=== PATIENT | female | born 1940 | race Caucasian/White ===

== ENCOUNTER → 2016-09-13 | Outpatient (CLI) | payer MEDICARE ==
--- NOTE | 2016-09-15 08:03 | MM ---
Reason for exam: screening (asymptomatic). Last mammogram was performed 1 year ago. History: Patient is postmenopausal. Benign stereotactic core biopsy of the left breast, January 21, 2000. Core biopsy of the left breast. Physical Findings: A clinical breast exam by your physician is recommended on an annual basis and results should be correlated with mammographic findings. MG 3D Screening Mammo W/Cad Bilateral CC and MLO view(s) were taken. Prior study comparison: September 12, 2015, bilateral MG screening mammo w CAD. August 12, 2014, bilateral MG diagnostic mammo w CAD [place]. The breast tissue is almost entirely fat. No significant changes when compared with prior studies. ASSESSMENT: Negative, BI-RAD 1 RECOMMENDATION: Routine screening mammogram of both breasts in 1 year.
== END | disposition home or self-care (01) ==
LOC: RADMAMWWP 13:40
PROVIDERS: ATTEND Family Medicine
DX: Z12.31 Encounter for screening mammogram for malignant neoplasm of breast (principal)
CPT/HCPCS: 77052; 77063; G0202

== ENCOUNTER → 2016-10-25 | Outpatient (CLI) | payer MEDICARE ==
--- NOTE | 2016-10-25 12:35 | MR ---
EXAMINATION TYPE: MR shoulder LT wo con DATE OF EXAM: 10/25/2016 11:14 AM COMPARISON: Plain film second of October 2016 HISTORY: Left shoulder pain TECHNIQUE: Multiplanar, multisequence imaging of the left shoulder is performed without contrast. FINDINGS: Rotator Cuff: Torn and retracted to the level of the acromioclavicular joint Acromioclavicular Joint: Hypertrophic changes present, there is mass effect on the musculotendinous j unction of supraspinatus Glenohumeral Joint: Humerus is high riding in relationship joint. There is marginal spurring and join t effusion. Subchondral geode formation present at the humeral head. Labrum: Difficult to exclude a small tear anteriorly. Biceps Tendon: The tendon is perched along the anterior bicipital groove medially, there is fluid sig nal around the tendon, there may be associated ganglion cyst. Bone marrow signal: Some marrow edema present in the lateral aspect near the expected insertion site of the rotator cuff on the greater tuberosity along the proximal humerus. Other: Distal acromion shows a spur is somewhat downturned. IMPRESSION: Rotator cuff tear with retraction. Difficult to exclude labral tear. Additional findings above.
== END | disposition home or self-care (01) ==
LOC: RADMRIMAIN 10:31
PROVIDERS: ATTEND Orthopaedic Surgery
DX: M75.102 Unspecified rotator cuff tear or rupture of left shoulder, not specified as traumatic (principal)

== ENCOUNTER → 2017-01-27 | Outpatient (CLI) | payer MEDICARE ==
[2017-01-27 11:25] LABS: Basophils # (A) 0.1 k/uL (0-0.2); Basophils % (A) 1 %; CH 30.8; CHCM 33.3; Eosinophils # (A) 0.3 k/uL (0-0.7); Eosinophils % (A) 3 %; HCT 40.8 % (34.0-46.0); HDW 2.28; HGB 13.7 gm/dL (11.4-16.0); Luc % (Auto) 2; Lymphocytes # (A) 2.8 k/uL (1.0-4.8); Lymphocytes % (A) 31 %; MCH 31.3 pg (25.0-35.0); MCHC 33.6 g/dL (31.0-37.0); Mean Platelet Volume 6.6; Monocytes # (A) 0.6 k/uL (0-1.0); Monocytes % (A) 6 %; Neutrophils # (A) 5.1 k/uL (1.3-7.7); Neutrophils % (A) 57 %; RBC 4.39 m/uL (3.80-5.40); WBC 8.9 k/uL (3.8-10.6); WBC (Perox) 9.36
[2017-01-27 11:27] LABS: Potassium 5.4 mmol/L (3.5-5.1)
== END ==
LOC: LABPAT 11:02
PROVIDERS: ATTEND Orthopaedic Surgery
DX: Z01.812 Encounter for preprocedural laboratory examination (principal); M75.42 Impingement syndrome of left shoulder
CPT/HCPCS: 36415; 80051; 85025

== ENCOUNTER 2017-02-03 08:06 | Day surgery (SDC) | payer MEDICARE ==
[2017-01-28 15:37] VITALS: BMI 31.8
--- NOTE | 2017-02-02 15:21 | HP ---
DATE OF ADMISSION: 02/03/2017 Yulia Yanes is a 76-year-old patient seen with progressive left shoulder pain. After having treatment options discussed, she elected to proceed with left shoulder arthroscopy. Consent was obtained. Clearance was provided by Dr. Mati Vale. Past medical history is hyperlipidemia, hypertension. Past surgical history is right knee arthroscopy, right total knee arthroplasty. DAILY MEDICATIONS: 1. Aspirin. 2. Lotrel. 3. Metoprolol. 4. Zocor. ALLERGIES: None. SOCIAL HISTORY: Patient denies current tobacco use. Physical evaluation of the left shoulder: Flexion is 30 degrees, abduction is 30 degrees, external rotation is 20 degrees with pain and weakness. Tenderness along the anterolateral acromion and rotator cuff insertion. Impingement positive at 80 degrees, drop arm sign positive. Distal neurovascular exam is intact. Radiographs of the left shoulder revealed a type 2 anterior acromion, acromioclavicular joint osteoarthritis and cystic changes of the tuberosity. An MRI of the left shoulder revealed impingement as well as a retracted rotator cuff tendon tear. IMPRESSION: Left shoulder impingement with rotator cuff tear. PLAN: Left shoulder arthroscopy, subacromial decompression, probable arthroscopic rotator cuff repair, and debridement.
[~2017-02-03 08:06] MED LIST: DEXAMETHASONE SOD PHOSPHATE 10 MG/ML 1 ML VIAL IV ONE; HYDROmorphone 1 MG/ML 1 ML SYRINGE IVP PRN; LACTATED RINGERS 1,000 ML IV SCH; LIDOCAINE 1% 20 ML VIAL (10MG/ML) FOR IV START INTRADERMA PRN; ONDANSETRON 4 MG/2 ML VIAL IVP ONE; ceFAZolin 2 GM in SODIUM CHLORIDE 0.9% 100 ML IVPB ONE
[2017-02-03] MEDS ORDERED: MIDAZOLAM 2 MG/2 ML VIAL IV ONE (09:10)
[2017-02-03] MEDS ORDERED: NEOSTIGMINE 1 MG/ML 10 ML VIAL ONE (09:26)
[2017-02-03] MEDS ORDERED: fentaNYL (PF) 50 MCG/ML 2 ML AMP ONE (09:26)
[2017-02-03] MEDS ORDERED: MIDAZOLAM 2 MG/2 ML VIAL ONE (09:26)
[2017-02-03] MEDS ORDERED: ePHEDrine 50 MG/ML 1 ML AMP ONE (09:26)
[2017-02-03] MEDS ORDERED: GLYCOPYRROLATE 0.2 MG/ML 2 ML VIAL ONE (09:26)
[2017-02-03] MEDS ORDERED: SUCCINYLCHOLINE CHLORIDE 100 MG/5 ML SYR IV ONE (09:26)
[2017-02-03] MEDS ORDERED: PROPOFOL 10 MG/ML 20 ML VIAL IV ONE (09:26)
[2017-02-03] MEDS ORDERED: ROCURONIUM BROMIDE 10 MG/ML 10 ML VIAL IV ONE (09:26)
--- NOTE | 2017-02-03 12:01 | P.OP ---
Date of Procedure: 02/03/17 Preoperative Diagnosis: Left shoulder impingement Postoperative Diagnosis: 1. Left shoulder rotator cuff tear 2. Left shoulder impingement 3. Left shoulder acromioclavicular joint osteoarthritis 4. Left shoulder partial biceps tendon tear 5. Left shoulder superficial superior labral tear Procedure(s) Performed: 1. Left shoulder arthroscopic rotator cuff repair 2. Left shoulder arthroscopic subacromial decompression 3. Left shoulder arthroscopic April procedure 4. Left shoulder arthroscopic biceps tenotomy 5. Left shoulder arthroscopic debridement labral tear Implants: 6-valeris peek anchors Anesthesia: GETA, regional (Shoulder block ) Surgeon: David Sanders Labor Training Manager #1: Jefferson Caro Estimated Blood Loss (ml): 25 Pathology: none sent Condition: stable Disposition: PACU Indications for Procedure: 76-year-old patient seen with progressive left shoulder pain. After treatment options discussed, she elected to proceed with left shoulder arthroscopy. Operative Findings: see description of procedure Description of Procedure: Patient underwent a shoulder block by department of anesthesia. The patient was then taken to the operative suite. The patient underwent a general anesthetic by the department of anesthesia. The patient was placed into a lateral position and secured. There was appropriate padding of the bony prominence. Left shoulder was then prepped and draped in normal sterile orthopedic fashion. We placed the extremity in 10 pounds of longitudinal traction. A posterior incision was now made for a posterior working portal site. The trocar and cannula were inserted into the glenohumeral joint. Arthroscopy was initiated. Spinal needle was now inserted anteriorly, to ascertain the anterior working portal site. An incision was now made in that area, a trocar was inserted followed by a probe. There was superficial tearing of the superior labrum. There was partial tearing long head biceps tendon. There were grade 2 chondral malacia changes of the glenohumeral joint without osteochondral tears present. There was no obvious large rotator cuff tear visualized from glenohumeral side. I performed an arthroscopic biceps tenotomy. I debrided the labral tear down to stable tissue. The residual labrum was found to be stable. Instruments were now removed from the glenohumeral joint. Utilizing the posterior working portal site, the trocar and cannula were inserted into the subacromial space. Arthroscopy initiated. I made an incision 2 fingerbreadths lateral to the acromion. I introduced my trocar followed by my ArthroCare ablator. I now began ablating thick subacromial bursal tissue, which exposed the undersurface of the anterior acromion. This was diminished subacromial space. There was a very prominent anterior acromion. A motorized bur was introduced and a subacromial decompression was performed. I also excised some osteophytes off the inferior aspect of the distal clavicle. The AC joint was visualized and noted to be fairly arthritic. Our motorized bur was introduced in the anterior portal site and a April procedure was performed without difficulty, decompressing the AC joint nicely. I turned my attention to the rotator cuff. There was a massive rotator cuff tear measuring approximately 4 cm retracted. I was able to mobilize over the footprint. I abraded the footprint with a motorized bur. I created 2 assessory portal sites of the lateral acromion. I introduced 3 medial row anchors with 2 sutures each. I now passed all 6 limbs of suture through good bites of rotator cuff tendon. I now crisscrossed the sutures and began inserting lateral anchors beginning posteriorly introducing a total of 3 anchors compressing the tendon along the footprint very nicely. I injected 1 mL of Allogen into the footprint repair site. All residual suture limbs were clipped. The repair was stable. We had impression of the tendon along the footprint. Instruments now removed from the portal sites. All portal sites were approximated with nylon suture. Sterile dressings were applied followed by a shoulder immobilizer. Morgan SCOTT assisted with the procedure. The patient was awakened, transferred to a bed, and taken to recovery in stable condition.
[2017-02-03 12:11] VITALS: TEMP 97
[2017-02-03 12:18] VITALS: RESP 16
[2017-02-03 13:35] VITALS: BP 110/63; PULSE 81
== END 2017-02-03 14:08 | disposition home or self-care (01) ==
LOC: OR 08:06
PROVIDERS: ATTEND Orthopaedic Surgery
DX: M75.102 Unspecified rotator cuff tear or rupture of left shoulder, not specified as traumatic (principal); M75.42 Impingement syndrome of left shoulder; S46.112A Strain of muscle, fascia and tendon of long head of biceps, left arm, initial encounter; S43.402A Unspecified sprain of left shoulder joint, initial encounter; X58.XXXA Exposure to other specified factors, initial encounter; M19.012 Primary osteoarthritis, left shoulder; M94.212 Chondromalacia, left shoulder; M25.712 Osteophyte, left shoulder; I35.0 Nonrheumatic aortic (valve) stenosis; I10 Essential (primary) hypertension; E78.5 Hyperlipidemia, unspecified; I44.7 Left bundle-branch block, unspecified; I25.10 Atherosclerotic heart disease of native coronary artery without angina pectoris; E07.9 Disorder of thyroid, unspecified; Z79.82 Long term (current) use of aspirin; Z79.899 Other long term (current) drug therapy; Z82.49 Family history of ischemic heart disease and other diseases of the circulatory system; Z87.891 Personal history of nicotine dependence
CPT/HCPCS: 64415; 84132; 29824; 29827; 29826; C1894; C1713 ×2; C1765; J2250; J1100; J2710; J0690; J2405; J3010; J0330; J2704

== ENCOUNTER → 2017-09-26 | Outpatient (CLI) | payer MEDICARE ==
--- NOTE | 2017-09-27 09:15 | MM ---
Reason for exam: screening (asymptomatic). Last mammogram was performed 1 year ago. History: Patient is postmenopausal. Benign stereotactic core biopsy of the left breast, January 21, 2000. Core biopsy of the left breast. Physical Findings: A clinical breast exam by your physician is recommended on an annual basis and results should be correlated with mammographic findings. MG Screening Mammo w CAD Bilateral CC, MLO, and XCCL view(s) were taken. Prior study comparison: September 13, 2016, bilateral MG 3d screening mammo w/cad. September 12, 2015, bilateral MG screening mammo w CAD. There are scattered fibroglandular densities. Stable benign calcifications. There is no discrete abnormality. No significant changes when compared with prior studies. ASSESSMENT: Benign, BI-RAD 2 RECOMMENDATION: Routine screening mammogram of both breasts in 1 year.
== END | disposition home or self-care (01) ==
LOC: RADMAMWWP 09:20
PROVIDERS: ATTEND Family Medicine
DX: Z12.31 Encounter for screening mammogram for malignant neoplasm of breast (principal)
CPT/HCPCS: 77067

== ENCOUNTER → 2019-01-08 | Outpatient (CLI) | payer MEDICARE ==
--- NOTE | 2019-01-09 14:10 | MM ---
Reason for exam: screening (asymptomatic). Last mammogram was performed 1 year and 3 months ago. History: Patient is postmenopausal. Benign stereotactic core biopsy of the left breast, January 21, 2000. Core biopsy of the left breast. Physical Findings: A clinical breast exam by your physician is recommended on an annual basis and results should be correlated with mammographic findings. MG 3D Screening Mammo W/Cad Bilateral CC and MLO view(s) were taken. Prior study comparison: September 26, 2017, bilateral MG screening mammo w CAD. September 13, 2016, bilateral MG 3d screening mammo w/cad. The breast tissue is heterogeneously dense. This may lower the sensitivity of mammography. No significant changes when compared with prior studies. ASSESSMENT: Benign, BI-RAD 2 RECOMMENDATION: Routine screening mammogram of both breasts in 1 year.
== END | disposition home or self-care (01) ==
LOC: RADMAMWWP 10:10
PROVIDERS: ATTEND Family Medicine
DX: Z12.31 Encounter for screening mammogram for malignant neoplasm of breast (principal)
CPT/HCPCS: 77063; 77067

== ENCOUNTER → 2019-02-02 | Outpatient (CLI) | payer MEDICARE ==
[2019-02-02 11:15] LABS: HCT 41.4 % (34.0-46.0); HGB 13.5 gm/dL (11.4-16.0); MCHC 32.7 g/dL (31.0-37.0); MCV 91.9 fL (80.0-100.0); Mean Platelet Volume 6.7; Platelet Count 234 k/uL (150-450); RDW 13.2 % (11.5-15.5)
== END | disposition home or self-care (01) ==
LOC: LABPAT 10:01
PROVIDERS: ATTEND Internal Medicine Interventional Cardiology
DX: Z01.812 Encounter for preprocedural laboratory examination (principal); I35.9 Nonrheumatic aortic valve disorder, unspecified; I44.7 Left bundle-branch block, unspecified
CPT/HCPCS: 82565; 83735; 84520; 85027

== ENCOUNTER 2019-02-05 06:34 | Day surgery (SDC) | payer MEDICARE ==
[2019-02-01 16:13] VITALS: BMI 32.3
[~2019-02-05 06:34] MED LIST changes: +ALPRAZolam 0.25 MG TAB PO PRN; +ALPRAZolam 0.5 MG TAB PO PRN; +ASPIRIN 325 MG TAB PO STA; +ATORVASTATIN 80 MG TAB PO STA; -DEXAMETHASONE SOD PHOSPHATE 10 MG/ML 1 ML VIAL IV ONE; -HYDROmorphone 1 MG/ML 1 ML SYRINGE IVP PRN; -LACTATED RINGERS 1,000 ML IV SCH; -LIDOCAINE 1% 20 ML VIAL (10MG/ML) FOR IV START INTRADERMA PRN; +NITROGLYCERIN SL TABS 0.4 MG TAB SUBLINGUAL PRN; -ONDANSETRON 4 MG/2 ML VIAL IVP ONE; +SODIUM CHLORIDE 0.9% 1,000 ML in EMPTY BAG 1 BAG IV ONE; -ceFAZolin 2 GM in SODIUM CHLORIDE 0.9% 100 ML IVPB ONE
[2019-02-05 07:11] VITALS: TEMP 97.6
[2019-02-05] MEDS ORDERED: LIDOCAINE 1% INJ 10MG/ML (20 ML MDV) ONE (07:36)
[2019-02-05 07:37] LABS: Calcium 9.4 mg/dL (8.4-10.2); Potassium 4.7 mmol/L (3.5-5.1)
[2019-02-05] MEDS ORDERED: MIDAZOLAM (PF) 2 MG/2 ML VIAL IV ONE ×2 (07:39→12:45)
[2019-02-05] MEDS ORDERED: LIDOCAINE 1% INJ 10MG/ML (20 ML MDV) SQ ONE (07:44)
--- NOTE | 2019-02-05 08:04 | HP ---
HISTORY AND PHYSICAL This is a 78-year-old lady with a known history of aortic stenosis and regurgitation with hypertension and hyperlipidemia. I evaluated her in late December and noted that her echo revealed a significant decrease in LV function with some diastolic dysfunction as well. There was some asymmetric septal hypertrophy. Aortic stenosis appeared to be worse with a mean gradient that had increased with moderate aortic regurgitation. In view of her pulmonary hypertension, worsening aortic valve disease and decreased LV function, she was advised coronary angiography and transesophageal echo with the possibility that she may require valve replacement. The rationale, risks, benefits, options were carefully explained to the patient and family. PAST MEDICAL HISTORY: Past medical history includes hypertension, hyperlipidemia, known aortic valve disease. She also has hypothyroidism and hypertension that is well controlled. MEDICATIONS: Her medications at home include Synthroid 50 mcg daily, Lotrel 5/40 one tablet daily, aspirin 81 mg daily, Zocor 20 mg daily, metoprolol succinate 25 mg daily. ALLERGIES: No known drug allergies. PHYSICAL EXAMINATION: On examination, blood pressure is 120/70, pulse rate is 70 per minute. HEENT: Unremarkable. Fundus was not examined by me. Neck is supple. There is JVD of 1 cm. There is no carotid bruit. Heart exam reveals S1, S2 heard normally with an ejection systolic murmur heard at the base of the heart with a diastolic murmur at the left sternal border. Lungs revealed decent air entry bilateral lung lance without rales or rhonchi. Abdomen is soft, nontender. Lower extremities reveal diminished pulses. Central nervous system is normal. IMPRESSION: 1. Moderate to severe aortic stenosis with moderate regurgitation with pulmonary hypertension. 2. Systemic hypertension. 3. Hyperlipidemia. 4. Left bundle branch block pattern. 5. Moderate noncritical carotid disease. RECOMMENDATION: I am recommending a right and left heart catheterization and coronary angiography as well as a transesophageal echo that will be performed today. The rationale, risks, benefits, options were explained to the patient and family. They understand and wish to proceed with the procedure. Patient does have a creatinine of 1.7 and we have hydrated her orally and she also received 0.9 Saline 100 mL/hour on arrival and we will use the dye administration very cautiously. The patient is aware of the renal failure risk. She does not have diabetes mellitus. MMODL / IJN: [id number] / [facility]
[2019-02-05 08:13] LABS: O2 Sat Blood Gas 98.7 %
[2019-02-05 08:16] LABS: O2 Sat Blood Gas 77.2 %
[2019-02-05 08:18] LABS: O2 Sat Blood Gas 74.5 %
[2019-02-05] MEDS ORDERED: IOPAMIDOL-370 100ML BTL INJ ONE ×2 (08:18)
[2019-02-05] MEDS ORDERED: SODIUM CHLORIDE 0.9% 1,000 ML IV SCH (08:45)
--- NOTE | 2019-02-05 09:01 | CC ---
CARDIAC CATHETERIZATION REPORT DATE OF SERVICE: 02/05/2019 PROCEDURE: Right heart catheterization and coronary angiography with oxygen saturation run and hemodynamics. PERFORMED BY: Dr. Danielle Lima. Moderate conscious sedation time was 40 minutes. Patient was administered Versed. Oxygen saturation, hemodynamics and EKG were monitored closely. CLINICAL INFORMATION: Mrs. Yulia Yanes is a 78-year-old lady with a known history of aortic valve disease, which has progressively gotten worse. She has developed LV dysfunction with worsening aortic stenosis and regurgitation and also moderate pulmonary hypertension and therefore she was advised coronary angiography. The rationale, risks, benefits, options were explained to the patient and family and she was brought in for the procedure electively. PROCEDURE NOTE: Under local anesthesia and strict aseptic precautions, a 6-Mauritian introducer was placed in the right femoral artery. An 8-Mauritian introducer in the right femoral vein. Using a balloon tipped flotation catheter, I performed right heart catheterization and thermodilution cardiac output. Using JR4 and JL5 catheters, I performed selective coronary angiography. I could not cross the aortic valve. The sheath was taken out and Angio-Seal device used to secure hemostasis. The venous sheath was taken out and manual compression used to secure hemostasis. Patient tolerated the procedure well without complications. CARDIAC CATHETERIZATION FINDINGS: Right atrial pressure was 5 mmHg, right ventricular pressure was 36/5. Pulmonary artery pressure was 36/14 with a mean of 24. Pulmonary capillary wedge pressure was 12 mmHg. The aortic valve was not crossed. The thermodilution cardiac output was about 5.5 L and Raheem cardiac output was 4.23 L. This translates to an average cardiac output of about 5 L. CORONARY ANGIOGRAPHY FINDINGS: RIGHT CORONARY ARTERY: This is a large dominant vessel with minor irregularities. No significant disease. Distally it bifurcates into a large PDA and PLV, both of which supply a sizable amount of myocardium. There is no significant disease involving the PDA and PLV branches of the dominant RCA. RCA is therefore relatively disease free very dominant vessel. LEFT MAIN CORONARY ARTERY: Short patent vessel that immediately bifurcates into LAD and circumflex. LEFT ANTERIOR DESCENDING CORONARY ARTERY: Good caliber vessel extends along the anterior wall, gives off a large diagonal branch and then runs along the anterior wall giving off septal and secondary diagonal branches all the way to the apex. The distal aspect of the LAD is diffusely disease. The diagonal is free of significant disease. The distal 1/4 of LAD is diffusely diseased. There is however no significant critical stenosis. Diagonal branch is free of significant disease and several septal branches are also free of significant disease. The distal 1/3 of the LAD is diffusely disease, but no significant obstructive lesion is noted. LEFT POSTERIOR CIRCUMFLEX CORONARY ARTERY: This is a technically nondominant vessel. It gives off a small obtuse marginal proximally than a groove branch. After the groove branch, there is an eccentric 60% to 70% stenosis involving the circumflex which runs laterally and gives off 2 branches. The mid circumflex therefore has a 60% to 70% lesion which is significant and located just after the origin of a groove branch. FINAL IMPRESSION: This patient has no significant pulmonary hypertension. The cardiac output is about 5 L which is an average of Raheem and thermodilution cardiac outputs. The patient has a right dominant system. LAD is diffusely diseased distally. RCA is a dominant and disease free. Circumflex has a 60-70% mid lesion. RECOMMENDATIONS: I am recommending that we will proceed with a transesophageal echo and get an assessment of the aortic valve and then make specific recommendations. The patient had a elevated creatinine of 1.7 and therefore only 35 to 40 mL of contrast was given. The patient tolerated procedure well without complications. MMODL / IJN: [id number] / [facility]
[2019-02-05] MEDS ORDERED: fentaNYL (PF) 50 MCG/ML 2 ML AMP ONE (12:09)
[2019-02-05] MEDS: BENZOCAINE SPRAY 1 CAN MUCOUS MEM ONE ×2 (12:22→12:34)
[2019-02-05] MEDS ORDERED: IV FLUID CONTINUATION 1,000 ML IV ONE (12:23)
[2019-02-05] MEDS ORDERED: fentaNYL (PF) 50 MCG/ML 2 ML AMP IV ONE (12:45)
[2019-02-05 13:06] VITALS: RESP 16
[2019-02-05 15:12] VITALS: BP 130/78; PULSE 72
--- NOTE | 2019-02-05 15:52 | ECHOT ---
TRANSESOPHAGEAL ECHOCARDIOGRAM DATE OF SERVICE: 02/05/2019 Mrs. Yanes is a 78-year-old female who transesophageal echocardiogram was performed to assess the aortic stenosis and aortic regurgitation. The patient was given intravenous sedation with Versed and fentanyl and transesophageal echocardiogram was performed without any complications. FINDINGS: Aortic valve is sclerotic with diminished aortic leaflet opening. Aortic valve area calculated is 1-1.1 square cm suggestive of severe aortic stenosis. Ascending aorta is dilated and measures 4.3 cm. Color Doppler study shows evidence of severe degree of aortic regurgitation. There is a moderate degree of mitral regurgitation. Left atrium is mildly enlarged. There is no evidence of thrombus in left atrium or atrial appendage. Left ventricular cavity is dilated with evidence of global hypokinesia, only the basal segments are anton. Estimated ejection fraction is about 30%. Interatrial septum is intact. There is no evidence of any PFO. There are diffuse arthrosclerotic changes noted in the descending thoracic aorta. FINAL IMPRESSION: 1. There is a sclerotic and calcific aortic valve with severe aortic stenosis. Aortic valve area is calculated in the range of 1-1.1. There is evidence of severe aortic regurgitation. 2. Mitral valve leaflets are thickened. There is no definite evidence of any prolapse, but there is evidence of moderate degree of mitral regurgitation. 3. There is no evidence of flow in the pulmonary vein. 4. The left atrium is enlarged. 5. The left ventricular systolic function is severely impaired with only predominantly basal segments are anton. Estimated ejection fraction is 30%. 6. There is no evidence of thrombus in left atrial appendage. 7. Interatrial septum is intact. 8. Diffuse arthrosclerotic plaque noted in the descending thoracic aorta. MMODL / IJN: [id number] /
== END 2019-02-05 14:43 | disposition home or self-care (01) ==
LOC: CATHCVL 06:34
PROVIDERS: ATTEND Internal Medicine Interventional Cardiology
DX: I25.10 Atherosclerotic heart disease of native coronary artery without angina pectoris (principal); I10 Essential (primary) hypertension; I08.0 Rheumatic disorders of both mitral and aortic valves; I27.20 Pulmonary hypertension, unspecified; E03.9 Hypothyroidism, unspecified; I44.7 Left bundle-branch block, unspecified; I65.23 Occlusion and stenosis of bilateral carotid arteries; E78.5 Hyperlipidemia, unspecified; Z82.49 Family history of ischemic heart disease and other diseases of the circulatory system; Z72.0 Tobacco use; Z79.82 Long term (current) use of aspirin; Z79.890 Hormone replacement therapy; Z79.899 Other long term (current) drug therapy
CPT/HCPCS: 93312; 93320; 93325; 93456; 80048; 85018; 82810; C1760; C1894 ×2; C1769 ×2; J2001; J3010; Q9967; J2250

== ENCOUNTER → 2019-02-07 | Outpatient (CLI) | payer MEDICARE ==
[2019-02-07 23:12] LABS: Anion Gap 7.8 mmol/L (4.00-12.00); Calcium 9.5 mg/dL (8.7-10.3); Carbon Dioxide 25.2 mmol/L (21.6-31.8); Potassium 4.8 mmol/L (3.5-5.5)
== END | disposition home or self-care (01) ==
LOC: LABWHC1 16:08
PROVIDERS: ATTEND Internal Medicine Interventional Cardiology
DX: I10 Essential (primary) hypertension (principal); I25.10 Atherosclerotic heart disease of native coronary artery without angina pectoris
CPT/HCPCS: 36415; 80048

== ENCOUNTER → 2019-03-13 | Outpatient (CLI) | payer MEDICARE ==
[2019-03-13 09:18] LABS: HCT 38.4 % (34.0-46.0); HGB 12.5 gm/dL (11.4-16.0); MCH 29.6 pg (25.0-35.0); MCHC 32.6 g/dL (31.0-37.0); Mean Platelet Volume 7.1; Platelet Count 217 k/uL (150-450); RBC 4.22 m/uL (3.80-5.40); RDW 13.8 % (11.5-15.5); WBC 8.1 k/uL (3.8-10.6)
[2019-03-13 09:26] LABS: Albumin 4.1 g/dL (3.5-5.0); INR 0.9 (<1.2); Partial Thromboplastin Time 23.2 sec (22.0-30.0); Potassium 5.3 mmol/L (3.5-5.1); Total Bilirubin 0.7 mg/dL (0.2-1.3); Total Protein 6.5 g/dL (6.3-8.2)
[2019-03-13 10:09] LABS: Appearance,Urine Clear (Clear); Bilirubin,Urine Negative (Negative); Blood,Urine Negative (Negative); Color,Urine Light Yellow; Glucose,Urine (UA) Negative (Negative); Ketones,Urine Negative (Negative); Leukocyte Esterase,Urine Negative (Negative); Nitrite,Urine Negative (Negative); PH, Urine 6.5 (5.0-8.0); Protein,Urine Negative (Negative); Specific Gravity,Urine 1.009 (1.001-1.035); Urobilinogen,Urine <2.0 mg/dL (<2.0)
--- NOTE | 2019-03-13 11:58 | XR ---
EXAMINATION TYPE: XR chest 2V DATE OF EXAM: 03/13/2019 COMPARISON: NONE TECHNIQUE: PA and lateral views submitted. HISTORY: Preop FINDINGS: Hyperinflation lungs with hypertrophic and degenerative changes spine. Left lower lobe consolidation. Right lung clear. Biapical pleural thickening. Arthropathy of the shoulders. Atherosclerotic change of the aorta. IMPRESSION: 1. Left basilar atelectasis or pneumonia correlate clinically. 2. COPD
[2019-03-13 18:36] LABS: Hepatitis A Antibody IgM Non-Reactive (Non-Reactive); Hepatitis B Core IgM Non-Reactive (Non-Reactive)
[2019-03-13 20:32] LABS: Hemoglobin A1C 5.8 % (4.0-6.0)
--- NOTE | 2019-03-14 11:31 | P.PN ---
Progress Note - Text Progress Note Date: 03/13/19 5 meter walk test completed 03/13/19: 1. 5.02 sec 2. 5.26 sec 3. 4.62 sec
--- NOTE | 2019-03-15 12:42 | P.VSCSTY ---
Greater Saphenous Vein Mapping This is bilateral lower extremity greater saphenous vein mapping. Date of service: 03/13/2019 Vein quality and ultrasound appearance: No endoluminal thrombus or wall changes are seen. Vein size groin right : 5.8 x 5.1 groin left: 5.8 x 5.6 High thigh right: 3.6 x 3.4 high thigh left: 4.4 x 4.3 Mid thigh right: 4.3 x 3.5 mid thigh left: 4.0 x 3.8 Above-knee right: 4.5 x 3.3 above-knee left: 4.8 x 3.7 Below knee right: 3.6 x 2.8 below-knee left: 3.6 x 2.5 Mid calf right: 3.5 x 2.8 mid calf left: 2.9 x 2.8 Ankle right: 2.7 x 1.7 ankle left: 3.1 x 2.8 Impression: Usable bilateral greater saphenous vein..
--- NOTE | 2019-03-15 12:43 | P.ARTDOP ---
Arterial Doppler LOWER EXTREMITY ARTERIAL DOPPLER: DATE OF SERVICE: 03/13/2019 Reason for study: Preop CABG. Doppler waveforms: Multiphasic bilaterally throughout. Pulse volume recording: []. Pressure gradients: Mild gradient across the knee on the right. Ankle-brachial indices: 0.9 on the right and greater than 1 on the left. Toe pressures: [] on the right, [] on the left Impression: Normal right and mild left fem-pop disease..
== END | disposition home or self-care (01) ==
LOC: LABWHC1 08:48
PROVIDERS: ATTEND Thoracic Surgery (Cardiothoracic Vascular Surgery)
DX: Z01.818 Encounter for other preprocedural examination (principal); I77.89 Other specified disorders of arteries and arterioles; J44.9 Chronic obstructive pulmonary disease, unspecified; E78.5 Hyperlipidemia, unspecified; I10 Essential (primary) hypertension; I34.0 Nonrheumatic mitral (valve) insufficiency; I35.1 Nonrheumatic aortic (valve) insufficiency; Z79.01 Long term (current) use of anticoagulants; Z79.899 Other long term (current) drug therapy
CPT/HCPCS: 36415; 71046; 80053; 80061; 80074; 81003; 83036; 83735; 83880; 84443; 84484; 85027; 85610; 85730; 87070; 87086; 93005; 93923; 93970; 94150

== ENCOUNTER 2019-03-19 05:56 | Inpatient (IN) | payer MEDICARE ==
[~2019-03-19 05:56] MED LIST changes: +ALBUMIN HUMAN 25% 50 ML IV ONE; -ALPRAZolam 0.25 MG TAB PO PRN; -ALPRAZolam 0.5 MG TAB PO PRN; +ASPIRIN 325 MG TAB PO ONE; -ASPIRIN 325 MG TAB PO STA; +ATORVASTATIN 10 MG TAB PO ONE; -ATORVASTATIN 80 MG TAB PO STA; +CALCIUM CHLORIDE 100 MG/ML 10 ML SYRINGE IV ONE; +CHLORHEXIDINE GLUCONATE 15 ML CUP MUCOUS MEM ONE; +CLEVIDIPINE BUTYRATE 25 MG in EMPTY BAG 1 BAG IV ONE; +DEXTROSE 5% IN WATER 1,000 ML with POTASSIUM CHLORIDE 110 MEQ, MAGNESIUM SULFATE 16 MEQ... IV ONE; +DEXTROSE 5% IN WATER 1,000 ML with POTASSIUM CHLORIDE 25 MEQ, SODIUM CHLORIDE 2.5MEQ/ML... IRRIGATION ONE; +HEPARIN SODIUM 1,000 UN/ML (10ML VL) IV ONE; +HEPARIN SODIUM,PORCINE 5,000 UNIT in SODIUM CHLORIDE 0.9% 500 ML 500 ML IV ONE; +INSULIN REGULAR 100 UNIT in SODIUM CHLORIDE 0.9% 100 ML IV ONE; +LACTATED RINGERS 1,000 ML IV ONE; +MAGNESIUM SULFATE MG 500 MG/ML IV ONE; +MANNITOL 25% 12.5 GM/50 ML VIAL IV ONE; +METOPROLOL TARTRATE 12.5 MG TAB PO ONE; -NITROGLYCERIN SL TABS 0.4 MG TAB SUBLINGUAL PRN; +NITROGLYCERIN-D5W PMX 25 MG/250 ML BTL IV ONE; +NITROGLYCERIN-D5W PMX 50 MG in DEXTROSE/WATER 1 250ML.BAG IV ONE; +NOREPINEPHRINE 4 MG in SODIUM CHLORIDE 0.9% 250 ML IV ONE; +PHENYLEPHRINE 10 MG/ML VIAL IV ONE; +PHENYLEPHRINE 40 MG in SODIUM CHLORIDE 0.9% 250 ML IV ONE; +PROPOFOL 1,000 MG/100 ML VIAL IV ONE; +PROTAMINE SULFATE 10 MG/ML 25 ML VIAL IV ONE; +PROTAMINE SULFATE 250 MG in EMPTY BAG 1 BAG IV ONE; +SODIUM BICARB 8.4% 50 ML SYR (1 MEQ/ML) IV ONE; +SODIUM CHLORIDE 0.9% 1,000 ML IV ONE; -SODIUM CHLORIDE 0.9% 1,000 ML in EMPTY BAG 1 BAG IV ONE; +TRANEXAMIC ACID 2,000 MG in SODIUM CHLORIDE 0.9% 80 ML IV ONE; +ceFAZolin 2,000 MG in SODIUM CHLORIDE 0.9% 30 ML IVPB ONE
[2019-03-19] MEDS ORDERED: LIDOCAINE 1% 20 ML VIAL (10MG/ML) FOR IV START INTRADERMA ONE (06:40)
[2019-03-19] MEDS ORDERED: ALBUMIN HUMAN 5% (12.5gm) 250 ML BOTTLE IVPB ONE ×2 (07:16→16:01)
[2019-03-19] MEDS ORDERED: PROTAMINE SULFATE 10 MG/ML 25 ML VIAL IV ONE ×2 (07:16→17:00)
[2019-03-19] MEDS ORDERED: HEPARIN SODIUM,PORCINE 10,000 UNIT/ML 1 ML VIAL ONE (07:16)
[2019-03-19] MEDS ORDERED: PROPOFOL 10 MG/ML 20 ML VIAL IV ONE ×3 (07:16→16:01)
[2019-03-19] MEDS ORDERED: SODIUM CHLORIDE 0.9% IRRIG 1,000 ML BTL IRRIGATION ONE (07:16)
[2019-03-19] MEDS ORDERED: WATER FOR INJECTION, STERILE 10 ML VIAL IV ONE ×2 (07:16→16:01)
[2019-03-19] MEDS ORDERED: fentaNYL (PF) 50 MCG/ML 2 ML AMP ONE (07:16)
[2019-03-19] MEDS ORDERED: SODIUM CHLORIDE 0.9% 250 ML BAG ONE (07:16)
[2019-03-19] MEDS ORDERED: ceFAZolin 1,000 MG VIAL ONE (07:16)
[2019-03-19] MEDS ORDERED: TRANEXAMIC ACID 1,000 MG/10 ML VIAL ONE (07:16)
[2019-03-19] MEDS ORDERED: VECURONIUM 10 MG VIAL IV ONE ×2 (07:16→16:01)
[2019-03-19] MEDS ORDERED: fentaNYL (PF) 50 MCG/ML 50 ML VIAL ONE (07:16)
[2019-03-19] MEDS ORDERED: MAGNESIUM SULFATE 4 MEQ/ML 10ML VIAL ONE (07:16)
[2019-03-19] MEDS ORDERED: MIDAZOLAM 2 MG/2 ML VIAL ONE (07:16)
[2019-03-19] MEDS ORDERED: CALCIUM CHLORIDE 100 MG/ML 10 ML SYRINGE ONE ×2 (07:16→16:01)
[2019-03-19] MEDS ORDERED: PHENYLEPHRINE-0.9% NACL SYG 1 MG/10 ML SYRINGE ONE (07:16)
[2019-03-19] MEDS ORDERED: LIDOCAINE 2% SYG (PF) 100 MG/5 ML ONE (07:16)
[2019-03-19] MEDS ORDERED: ELECTROLYTE-R (PH 7.4) 1,000 ML IV.SOLN IV ONE ×2 (07:16→16:01)
[2019-03-19] MEDS ORDERED: EPINEPHrine 4 MG in DEXTROSE 5% IN WATER 250 ML IV ONE ×2 (08:15)
[2019-03-19] MEDS ORDERED: SODIUM CHLORIDE 0.9% 50 ML with VASOPRESSIN 20 UNIT IVPB ONE ×2 (08:15)
[2019-03-19 08:38] LABS: ABG Base Excess -1.1 mmol/L; ABG Glucose Whole Blood 101 mg/dL (75-99); ABG HCO3 24 mmol/L (21-25); ABG Hematocrit 34 % (34.0-46.0); ABG Ionized Calcium 5.1 mg/dL (4.5-5.3); ABG Lactic Acid Whole Blood 0.7 mmol/L (0.5-1.6); ABG PCO2 41 mmHg (35-45); ABG PH 7.38 (7.35-7.45); ABG Potassium Whole Blood 4.3 mmol/L (3.4-4.5); ABG Sodium Whole Blood 141 mmol/L (135-146); ABG TCO2 25 mmol/L (19-24)
--- NOTE | 2019-03-19 10:07 | P.ANPRN ---
Procedure Note - Anesthesia - Invasive Line Right Central Line Time Out Performed: Yes Date of Procedure: 03/19/19 Time of Procedure: 07:25 Location of Patient Procedure: PACU Preparation: Sterile Prep, Sterile Dressing Ultrasound Used: Yes Needle Guage: [phone] Narrative: Central line placement per sterile protocol utilized. Right Pease Rissa Time Out Performed: Yes Date of Procedure: 03/19/19 Time of Procedure: 07:35 Location of Patient Procedure: PACU Preparation: Sterile Prep, Sterile Dressing Narrative: Central line placement per sterile protocol utilized.
[2019-03-19 10:34] LABS: ABG Base Excess -2.5 mmol/L; ABG Glucose Whole Blood 193 mg/dL (75-99); ABG HCO3 24 mmol/L (21-25); ABG Hematocrit 26 % (34.0-46.0); ABG Ionized Calcium 4.7 mg/dL (4.5-5.3); ABG Lactic Acid Whole Blood 0.9 mmol/L (0.5-1.6); ABG PCO2 46 mmHg (35-45); ABG PH 7.32 (7.35-7.45); ABG PO2 237 mmHg (83-108); ABG Potassium Whole Blood 5.5 mmol/L (3.4-4.5); ABG Sodium Whole Blood 135 mmol/L (135-146); ABG TCO2 25 mmol/L (19-24)
[2019-03-19 11:13] LABS: ABG Base Excess -1.4 mmol/L; ABG Glucose Whole Blood 199 mg/dL (75-99); ABG HCO3 23 mmol/L (21-25); ABG Hematocrit 25 % (34.0-46.0); ABG Ionized Calcium 4.6 mg/dL (4.5-5.3); ABG Lactic Acid Whole Blood 0.9 mmol/L (0.5-1.6); ABG PCO2 39 mmHg (35-45); ABG PH 7.39 (7.35-7.45); ABG PO2 243 mmHg (83-108); ABG Potassium Whole Blood 5.7 mmol/L (3.4-4.5); ABG Sodium Whole Blood 135 mmol/L (135-146); ABG TCO2 25 mmol/L (19-24)
[2019-03-19 11:45] LABS: ABG Base Excess -2.1 mmol/L; ABG Glucose Whole Blood 176 mg/dL (75-99); ABG HCO3 23 mmol/L (21-25); ABG Hematocrit 25 % (34.0-46.0); ABG Ionized Calcium 4.6 mg/dL (4.5-5.3); ABG Lactic Acid Whole Blood 1.7 mmol/L (0.5-1.6); ABG PCO2 39 mmHg (35-45); ABG PH 7.37 (7.35-7.45); ABG PO2 285 mmHg (83-108); ABG Potassium Whole Blood 5.4 mmol/L (3.4-4.5); ABG Sodium Whole Blood 136 mmol/L (135-146); ABG TCO2 24 mmol/L (19-24)
[2019-03-19 12:24] LABS: ABG Base Excess -3.8 mmol/L; ABG Glucose Whole Blood 156 mg/dL (75-99); ABG HCO3 23 mmol/L (21-25); ABG Ionized Calcium 4.7 mg/dL (4.5-5.3); ABG PCO2 47 mmHg (35-45); ABG PH 7.29 (7.35-7.45); ABG PO2 200 mmHg (83-108); ABG Potassium Whole Blood 5.1 mmol/L (3.4-4.5); ABG Sodium Whole Blood 137 mmol/L (135-146); ABG TCO2 24 mmol/L (19-24)
[2019-03-19 13:29] LABS: ABG Base Excess 0.9 mmol/L; ABG Glucose Whole Blood 143 mg/dL (75-99); ABG HCO3 26 mmol/L (21-25); ABG Hematocrit 25 % (34.0-46.0); ABG Ionized Calcium 4.1 mg/dL (4.5-5.3); ABG PCO2 44 mmHg (35-45); ABG PH 7.39 (7.35-7.45); ABG PO2 192 mmHg (83-108); ABG Potassium Whole Blood 4.5 mmol/L (3.4-4.5); ABG Sodium Whole Blood 141 mmol/L (135-146); ABG TCO2 28 mmol/L (19-24)
[2019-03-19 13:42] LABS: ABG PO2 >420 mmHg (83-108)
[2019-03-19 13:44] LABS: ABG Hematocrit 24 % (34.0-46.0); ABG Lactic Acid Whole Blood 2.7 mmol/L (0.5-1.6)
[2019-03-19 13:45] LABS: ABG Lactic Acid Whole Blood 2.2 mmol/L (0.5-1.6)
[2019-03-19] MEDS ORDERED: CALCIUM GLUCONATE 2 GM in SODIUM CHLORIDE 0.9% 100 ML IVPB PRN (14:19)
[2019-03-19] MEDS ORDERED: AMIODARONE 360 MG in DEXTROSE 5% IN WATER 200 ML IV PRN ×2 (14:19)
[2019-03-19] MEDS ORDERED: ONDANSETRON 4 MG/2 ML VIAL IVP PRN (14:19)
[2019-03-19] MEDS ORDERED: METOCLOPRAMIDE 5 MG/ML 2 ML VIAL IVP PRN (14:19)
[2019-03-19] MEDS ORDERED: BENZOCAINE/MENTHOL LOZENG 1 EACH LOZENGE MUCOUS MEM PRN (14:19)
[2019-03-19] MEDS ORDERED: Magnesium Replacement Protocol 1 EACH MISC MISCELLANE PRN (14:19)
[2019-03-19] MEDS ORDERED: Potassium Replacement Protocol 1 EACH MISC MISCELLANE PRN (14:19)
[2019-03-19] MEDS ORDERED: AMIODARONE 300 MG in DEXTROSE 5% IN WATER 250 ML IV PRN ×2 (14:19)
[2019-03-19] MEDS ORDERED: DEXTROSE 5% IN WATER 100 ML with AMIODARONE 150 MG IV PRN (14:19)
[2019-03-19] MEDS ORDERED: Phosphorus Replacement Protoco 1 EACH MISC MISCELLANE PRN (14:19)
--- NOTE | 2019-03-19 14:22 | OP ---
OPERATIVE REPORT DATE OF THE OPERATION: 03/19/2019 ATTENDING SURGEON: Lloyd Cabrera MD. ALLEY TENDER: VERONICA Adler NP PREOPERATIVE DIAGNOSIS: Severe aortic stenosis, moderate to severe mitral regurgitation, single-vessel coronary arterial disease. POSTOPERATIVE DIAGNOSIS: Severe aortic stenosis, moderate to severe mitral regurgitation, single-vessel coronary arterial disease. PROCEDURE: Aortic valve replacement with a #23 mm Avalus bioprosthetic Medtronic aortic valve, mitral valve repair with a #30 mm Carbomedics AnnuloFlex band. Coronary artery bypass grafting x1 with reverse saphenous vein graft off the aorta to the circumflex artery and clip ligation of the left atrial appendage with a #35 mm AtriClip with intraoperative CHAITANYA. ANESTHESIA: General. BLOOD LOSS: 500 mL. SUMMARY: Patient brought to the operating room, placed in supine position. Following administration of a general endotracheal anesthetic, placement of a [place]-Rissa catheter, arterial line, adequate IV access, Lovett catheter, patient was carefully prepped and draped in normal sterile fashion using chlorhexidine paint and sterile towels. The left greater saphenous vein was harvested via the endoscopic vein harvesting technique. All branches were doubly tied and divided and the incisions closed in two layers. A midline incision of the chest made, sternum divided, pericardium was opened. Heart size was mildly enlarged. The aorta was mildly enlarged and appeared somewhat thin. Patient was heparinized AST of greater than 480. The aorta and 2 single stage venous cannulas were placed, antegrade and retrograde cardioplegic catheters positioned in the ascending aorta and the coronary sinus. Patient was placed on bypass cross-clamp, placed heart arrested with 1 intervention grade 500 mL of retrograde cardioplegia. Retrograde cardioplegia was delivered 3-500 mL at the end of each 20 minute interval. First the base of the left atrial appendage was measured. A 35 mm AtriClip was opened and secured at the base officially obliterating the left atrial appendage. A single distal anastomosis was constructed. Reverse saphenous vein graft anastomosis to the circumflex artery was constructed using a 7-0 Prolene running suture. Caliber of this vessel was 1.75 mm. Under a single cross-clamp a single proximal anastomosis was constructed on the ascending aorta using 6-0 Prolene running suture. At this point, the left atrium was entered at the junction of the right superior pulmonary vein. A handheld retractor was placed. The subvalvular apparatus of the mitral valve appeared to be within normal limits. Maybe mildly thickened chordae. The anulus was dilated. Two Tycron non-pledgeted sutures were placed from trigone to trigone along the posterior anulus and these were then passed through the sewing cuff of the mitral ring at 30 mm Carbomedics AnnuloFlex band. The band was seated, all sutures were secured, cut using the core knot ligature system device. It was then tested with a handle pan and there was no evidence of any further regurgitation. The atrium was closed in a double layered pledgeted 4 Prolene vertical mattress followed by an [id number] stitch from both sides. At this point, a transverse aortotomy incision was made 2 cm distal to the takeoff of the right coronary artery. A handheld retractor was placed. Make note that the aorta was very exceptionally thin. Therefore it was determined that upon closure we would use felt strips as a buttress to the closure. Upon entering the aorta, the aortic valve was trileaflet, heavily calcified. The leaflets were carefully excised. The anulus debrided copiously and then it was irrigated out with 3 L of cold saline. It sized to a 23 mm Medtronic Avalus bioprosthetic aortic valve. Two Tycron pledgetted sutures were placed ventricularly, based circumferentially in the valve. The valve was prepared in the usual fashion and all sutures were then passed through the sewing cuff of the valve. The valve was seated and seated well. All sutures were then tied, secured and cut using the core knot ligature system device. The aortotomy incision was then closed using 2 pieces of felt strips as buttresses on the outer aortic well using a 4-0 Prolene vertical mattress followed by an [id number]-tehz stitch from both sides. At this point, patient was placed head down complete de-airing maneuvers were performed 3 times. One L of warm blood retrograde cardioplegia was run, cross-clamp was then removed. Once beating normal sinus rhythm, patient was started on Primacor, Levophed paste, DDD at 70 and brought off bypass. Came off bypass uneventfully with good hemodynamics, protamine delivered, patient decannulated, atrial ventricular pacing wires were placed, mediastinal left pleural chest tubes were placed. At this point, the sternum was closed with seven #6 sternal wires. Skin and subcutaneous tissue and fascia closed in 3 layers. No complications. Patient tolerated the procedure well. Postoperative CHAITANYA showed good aortic valve function with no AI. No perivalvular leak. Good mitral valvular function with no MR residual. A very mild MS with a mean gradient of 2-3. MMODL / IJN: [id number] /
[2019-03-19 14:50] LABS: Glucose,Whole Blood 180 mg/dL (75-99)
[2019-03-19 14:54] LABS: Ionized Calcium 5.1 mg/dL (4.5-5.3)
[2019-03-19 14:55] LABS: Basophils % (A) 0 %; Eosinophils # (A) 0.1 k/uL (0-0.7); Eosinophils % (A) 1 %; HCT 21.3 % (34.0-46.0); Lymphocytes # (A) 1.3 k/uL (1.0-4.8); Lymphocytes % (A) 12 %; MCH 30.4 pg (25.0-35.0); MCHC 33.5 g/dL (31.0-37.0); MCV 90.6 fL (80.0-100.0); Mean Platelet Volume 8.3; Monocytes # (A) 0.3 k/uL (0-1.0); Monocytes % (A) 3 %; Neutrophils # (A) 9.1 k/uL (1.3-7.7); Neutrophils % (A) 84 %; Platelet Count 119 k/uL (150-450); RBC 2.35 m/uL (3.80-5.40); RDW 13.8 % (11.5-15.5); WBC 10.9 k/uL (3.8-10.6)
[2019-03-19 14:56] LABS: INR 1.2 (<1.2); Partial Thromboplastin Time 22.8 sec (22.0-30.0); Prothrombin Time 12.2 sec (9.0-12.0)
[2019-03-19 14:58] LABS: HGB 7.2 gm/dL (11.4-16.0)
[2019-03-19 15:05] LABS: Albumin 2.7 g/dL (3.5-5.0); Calcium 8.6 mg/dL (8.4-10.2); Magnesium 2.5 mg/dL (1.6-2.3); Potassium 4.5 mmol/L (3.5-5.1); Total Bilirubin 0.7 mg/dL (0.2-1.3); Total Protein 4.3 g/dL (6.3-8.2)
[2019-03-19 15:06] LABS: ABG Base Excess -2.3 mmol/L; ABG HCO3 24 mmol/L (21-25); ABG Oxygen Saturation 99.8 % (94-97); ABG PCO2 50 mmHg (35-45); ABG PH 7.29 (7.35-7.45); ABG PO2 289 mmHg (83-108); ABG TCO2 26 mmol/L (19-24); Allen Test Performed? Yes
--- NOTE | 2019-03-19 15:06 | XR ---
EXAMINATION TYPE: XR chest 1V portable DATE OF EXAM: 03/19/2019 COMPARISON: Prior chest x-ray 03/13/2019 HISTORY: Postop cardiac surgery TECHNIQUE: Single frontal view of the chest is obtained. FINDINGS: Patient is post median sternotomy. Atrial appendage clipping is noted. Endotracheal tube, orogastric tube are present, the orogastric tube shows the distal tip near the cavoatrial junction le axel. There is a median sternal drain in place. Left-sided chest tube is noted. Right jugular central venous sheath and coaxial [place]-Rissa catheter with the distal tip over the pulmonary artery noted. No evident pneumothorax. Mediastinum is widened. Heart is enlarged. Patchy bibasilar density is noted, t here is perihilar increased density in the left. Aorta is dense. Retrocardiac density is present blun ting of left costophrenic angle. IMPRESSION: There is likely perihilar atelectatic changes with possible left pleural effusion and as sociated atelectasis. Widened mediastinum is likely postoperative. NG tube as described.
[2019-03-19 15:48] LABS: ABG Base Excess -3.8 mmol/L; ABG HCO3 22 mmol/L (21-25); ABG Oxygen Saturation 99.3 % (94-97); ABG PCO2 39 mmHg (35-45); ABG PH 7.36 (7.35-7.45); ABG PO2 151 mmHg (83-108); ABG TCO2 23 mmol/L (19-24)
[2019-03-19] MEDS ORDERED: SODIUM BICARB 8.4% 50 ML SYR (1 MEQ/ML) ONE (16:01)
[2019-03-19] MEDS ORDERED: POTASSIUM CHLORIDE OPEN HEART 20 MEQ/50 ML BAG IVPB ONE (16:01)
[2019-03-19] MEDS ORDERED: EPINEPHrine 1 MG/ML (MDV) 30 ML VIAL ONE (16:01)
[2019-03-19] MEDS: IPRATROPIUM-ALBUTEROL 3 ML NEB INHALATION SCH ×3 (16:13→21:07)
[2019-03-19 16:24] LABS: ABG Base Excess -8.3 mmol/L; ABG Glucose Whole Blood 231 mg/dL (75-99); ABG HCO3 20 mmol/L (21-25); ABG Ionized Calcium 4.4 mg/dL (4.5-5.3); ABG Oxygen Saturation 93.4 % (94-97); ABG PCO2 55 mmHg (35-45); ABG PO2 74 mmHg (83-108); ABG Potassium Whole Blood 4.5 mmol/L (3.4-4.5); ABG Sodium Whole Blood 140 mmol/L (135-146); ABG TCO2 21 mmol/L (19-24)
[2019-03-19] MEDS ORDERED: EPINEPHrine 4 MG in DEXTROSE 5% IN WATER 250 ML IV SCH ×2 (16:45)
[2019-03-19] MEDS ORDERED: DEXTROSE 5% IN WATER 1,000 ML with POTASSIUM CHLORIDE 25 MEQ, SODIUM CHLORIDE 2.5MEQ/ML... IRRIGATION ONE ×6 (17:00)
[2019-03-19] MEDS ORDERED: TRANEXAMIC ACID 2,000 MG in SODIUM CHLORIDE 0.9% 80 ML IV ONE (17:00)
[2019-03-19] MEDS ORDERED: PHENYLEPHRINE 40 MG in SODIUM CHLORIDE 0.9% 250 ML IV ONE (17:00)
[2019-03-19] MEDS ORDERED: DEXTROSE 5% IN WATER 1,000 ML with POTASSIUM CHLORIDE 110 MEQ, MAGNESIUM SULFATE 16 MEQ... IV ONE ×5 (17:00)
[2019-03-19] MEDS ORDERED: DEXTROSE 5% IN WATER 1,000 ML with POTASSIUM CHLORIDE 110 MEQ, MAGNESIUM SULFATE 16 MEQ... IV SCH ×5 (17:00)
[2019-03-19] MEDS ORDERED: ALBUMIN HUMAN 25% 50 ML in EMPTY BAG 1 BAG IVPB ONE (17:00)
[2019-03-19] MEDS ORDERED: SODIUM BICARB 8.4% 50 ML SYR (1 MEQ/ML) IV ONE (17:00)
[2019-03-19] MEDS ORDERED: PROTAMINE SULFATE 250 MG in EMPTY BAG 1 BAG IV ONE (17:00)
[2019-03-19] MEDS ORDERED: MANNITOL 25% 12.5 GM/50 ML VIAL IV ONE ×2 (17:00)
[2019-03-19] MEDS ORDERED: DEXTROSE 5% IN WATER 1,000 ML with POTASSIUM CHLORIDE 25 MEQ, SODIUM CHLORIDE 2.5MEQ/ML... IV SCH ×6 (17:00)
[2019-03-19] MEDS ORDERED: HEPARIN SODIUM 1,000 UN/ML (10ML VL) IV ONE (17:00)
[2019-03-19] MEDS ORDERED: CALCIUM CHLORIDE 100 MG/ML 10 ML SYRINGE IVP ONE (17:00)
[2019-03-19] MEDS ORDERED: HEPARIN SODIUM,PORCINE 5,000 UNIT in SODIUM CHLORIDE 0.9% 500 ML 500 ML IV ONE (17:00)
[2019-03-19] MEDS ORDERED: MAGNESIUM SULFATE SYG 4.06 MEQ/ML SYRINGE IV ONE (17:00)
[2019-03-19 17:01] LABS: ABG Base Excess -7.9 mmol/L; ABG Glucose Whole Blood 316 mg/dL (75-99); ABG HCO3 19 mmol/L (21-25); ABG Ionized Calcium 4.8 mg/dL (4.5-5.3); ABG Oxygen Saturation 99.9 % (94-97); ABG PCO2 48 mmHg (35-45); ABG PH 7.22 (7.35-7.45); ABG PO2 198 mmHg (83-108); ABG Potassium Whole Blood 3.9 mmol/L (3.4-4.5); ABG Sodium Whole Blood 141 mmol/L (135-146); ABG TCO2 21 mmol/L (19-24)
[2019-03-19] MEDS ORDERED: DEXTROSE 5% IN WATER 1,000 ML with SODIUM BICARB (1 MEQ/ML) 150 ML IV STA (17:03)
[2019-03-19 17:24] LABS: ABG Base Excess -3.9 mmol/L; ABG Glucose Whole Blood 291 mg/dL (75-99); ABG HCO3 22 mmol/L (21-25); ABG Ionized Calcium 4.5 mg/dL (4.5-5.3); ABG PCO2 42 mmHg (35-45); ABG PH 7.33 (7.35-7.45); ABG PO2 209 mmHg (83-108); ABG Potassium Whole Blood 3.6 mmol/L (3.4-4.5); ABG Sodium Whole Blood 143 mmol/L (135-146); ABG TCO2 23 mmol/L (19-24)
[2019-03-19] MEDS: ALBUMIN HUMAN 5% 250 ML in EMPTY BAG 1 BAG IVPB PRN ×7 (17:52→23:02)
[2019-03-19 18:05] LABS: ABG Base Excess 0.9 mmol/L; ABG Glucose Whole Blood 253 mg/dL (75-99); ABG HCO3 25 mmol/L (21-25); ABG Hematocrit 25 % (34.0-46.0); ABG Ionized Calcium 4.3 mg/dL (4.5-5.3); ABG PCO2 35 mmHg (35-45); ABG PH 7.45 (7.35-7.45); ABG PO2 98 mmHg (83-108); ABG Potassium Whole Blood 3.6 mmol/L (3.4-4.5); ABG Sodium Whole Blood 144 mmol/L (135-146); ABG TCO2 26 mmol/L (19-24)
[2019-03-19 18:13] LABS: ABG Lactic Acid Whole Blood 5.1 mmol/L (0.5-1.6); ABG PH 7.16 (7.35-7.45)
[2019-03-19 18:14] LABS: ABG Hematocrit 19 % (34.0-46.0)
[2019-03-19 18:15] LABS: ABG Hematocrit 23 % (34.0-46.0); ABG Lactic Acid Whole Blood 7.2 mmol/L (0.5-1.6)
[2019-03-19 18:16] LABS: ABG Hematocrit 23 % (34.0-46.0)
[2019-03-19 18:17] LABS: ABG Lactic Acid Whole Blood 5.9 mmol/L (0.5-1.6)
[2019-03-19] MEDS ORDERED: NOREPINEPHRINE 4 MG in SODIUM CHLORIDE 0.9% 250 ML IV STA (18:35)
--- NOTE | 2019-03-19 19:10 | XR ---
EXAMINATION TYPE: XR chest 1V DATE OF EXAM: 03/19/2019 COMPARISON: Today HISTORY: Possible foreign body TECHNIQUE: Single frontal view of the chest is obtained. FINDINGS: Endotracheal tube is 4 cm from the marie. There is right jugular catheter with the tip in the right pulmonary artery. There are sternal wires. There is a drain over the heart. There is a de in over the left lung. There is pulmonary vascular congestion. There is a 17 mm long metallic density over the mediastinum in the midline at the level of the left pulmonary artery. This could be a metal lic foreign body and is a change compared to exam earlier today at 2:30 PM. IMPRESSION: Possible metallic foreign body over the mediastinum. There is pulmonary vascular congest ion consistent with heart failure that is increased compared to last exam.
[2019-03-19 19:14] LABS: Basophils % (A) 0 %; Eosinophils % (A) 0 %; HCT 23.7 % (34.0-46.0); HGB 7.6 gm/dL (11.4-16.0); Lymphocytes # (A) 0.3 k/uL (1.0-4.8); Lymphocytes % (A) 3 %; MCH 29.1 pg (25.0-35.0); MCHC 32.1 g/dL (31.0-37.0); MCV 90.7 fL (80.0-100.0); Mean Platelet Volume 8.1; Monocytes # (A) 1.2 k/uL (0-1.0); Monocytes % (A) 11 %; Neutrophils # (A) 8.9 k/uL (1.3-7.7); Neutrophils % (A) 85 %; Platelet Count 73 k/uL (150-450); RBC 2.62 m/uL (3.80-5.40); RDW 13.9 % (11.5-15.5); WBC 10.5 k/uL (3.8-10.6)
[2019-03-19 19:23] LABS: Ionized Calcium 4.5 mg/dL (4.5-5.3)
[2019-03-19 19:24] LABS: Glucose,Whole Blood 249 mg/dL (75-99)
[2019-03-19 19:29] LABS: ALT 30 U/L (9-52); AST 53 U/L (14-36); African American GFR (CKD) 60 (>60 ml/min/1.73 sqM); Alkaline Phosphatase <20 U/L (38-126); Anion Gap 7 mmol/L; Blood Urea Nitrogen 24 mg/dL (7-17); Calcium 7.8 mg/dL (8.4-10.2); Carbon Dioxide 25 mmol/L (22-30); Chloride 109 mmol/L (98-107); Glucose 206 mg/dL (74-99); Potassium 3.9 mmol/L (3.5-5.1); Sodium 141 mmol/L (137-145); Total Bilirubin 1.5 mg/dL (0.2-1.3); Total Protein 3.3 g/dL (6.3-8.2)
[2019-03-19] MEDS: PROPOFOL 1,000 MG in EMPTY BAG 1 BAG IV SCH ×2 (19:36→20:00)
[2019-03-19] MEDS: LACTATED RINGERS 1,000 ML IV SCH (19:37)
[2019-03-19] MEDS: NOREPINEPHRINE 4 MG in SODIUM CHLORIDE 0.9% 250 ML IV SCH ×3 (19:38→23:45)
[2019-03-19] MEDS: ACETAMINOPHEN IV (For NPO) 1,000 MG in EMPTY BAG 1 BAG IVPB SCH ×2 (19:40→23:42)
[2019-03-19] MEDS: ceFAZolin IN SWFI 2 GM/20 ML SYRINGE IVP SCH ×2 (19:41→23:43)
[2019-03-19] MEDS: CLEVIDIPINE BUTYRATE 25 MG in EMPTY BAG 1 BAG IV SCH (19:42)
[2019-03-19 20:06] LABS: ABG Base Excess 3.2 mmol/L; ABG HCO3 27 mmol/L (21-25); ABG Oxygen Saturation 98.6 % (94-97); ABG PCO2 36 mmHg (35-45); ABG PH 7.48 (7.35-7.45); ABG PO2 102 mmHg (83-108); ABG TCO2 28 mmol/L (19-24)
[2019-03-19] MEDS: MILRINONE-D5W PMX 20 MG in DEXTROSE/WATER 1 100ML.BAG IV SCH (20:15)
--- NOTE | 2019-03-19 20:26 | OP ---
OPERATIVE REPORT DATE OF SURGERY: 03/19/2019. ATTENDING SURGEON: Dr. Christiano Cabrera. ASSISTANTS: 1. VERONICA Adler. 2. Blas Putnam NP. PREOPERATIVE DIAGNOSIS: Postoperative bleed. POSTOPERATIVE DIAGNOSIS: Postoperative bleed. PROCEDURE: Emergent re-exploration of chest, evacuation of clot and control of bleed. ANESTHESIA: General. SUMMARY: The patient was approximately 1-1/2 hour post double valve and bypass. She arrived in the ICU and was stable; however, she started to have increased chest tube output and put out about 1.3 L over the first hour and a half, at which point it was decided to bring the patient urgently back to the operating room for re-exploration. The body was prepped and draped in normal sterile fashion using chlorhexidine paint and sterile towels. At this point, the incision was opened, the sternal wires were removed, and a large amount of clot was present in and around the heart. The clot was removed. The area was irrigated out copiously with 2 L of warm saline, as was the left pleural space. There was noted to be an area of slight degloving of the epicardium off the anterolateral surface of the right ventricle. At this point there was a lot of venous bleeding present. Using 2 long felt strips and 3-0 Prolene on large needles, mattress sutures were used to compress and gently tamponade off the venous bleeding without creating any further tearing in the right ventricle or right atrium. The remainder of the area was irrigated out again and small areas were maintained hemostatically. During the early period of this, however, the patient nearly arrested as the clot was being removed from around the heart. Due to the ejection fraction being only 30% prior to surgery, it was decided to put an intra-aortic balloon pump via the right femoral artery. This was done successfully. At this point, once hemostasis was maintained, the sternum was then reapproximated using seven #6 sternal wires. Skin and subcutaneous tissue and fascia was closed in 3 layers. No complications. Patient tolerated the procedure well. A CHAITANYA probe had been placed during the middle of this and showed excellent left ventricular function, good right ventricular function and good valvular function, both aortic and mitral, with no changes. MMODL / IJN: [id number] /
[2019-03-19 20:32] LABS: Glucose,Whole Blood 237 mg/dL (75-99)
[2019-03-19] MEDS: MUPIROCIN 2% OINT 22 GM TUBE NASAL SCH (21:00)
[2019-03-19] MEDS: INSULIN REGULAR 100 UNIT in SODIUM CHLORIDE 0.9% 100 ML IV SCH (21:11)
[2019-03-19 21:21] LABS: Glucose,Whole Blood 206 mg/dL (75-99)
[2019-03-19 22:18] LABS: Glucose,Whole Blood 200 mg/dL (75-99)
[2019-03-19] MEDS: HEPARIN SODIUM,PORCINE 5,000 UNIT/ML 1 ML VIAL SQ SCH (22:33)
[2019-03-19 22:36] LABS: HCT 25.1 % (34.0-46.0); HGB 8.7 gm/dL (11.4-16.0); MCH 30.2 pg (25.0-35.0); MCHC 34.7 g/dL (31.0-37.0); Mean Platelet Volume 8.5; RBC 2.88 m/uL (3.80-5.40); RDW 14.7 % (11.5-15.5); WBC 8.4 k/uL (3.8-10.6)
[2019-03-19 22:37] LABS: Platelet Count 92 k/uL (150-450)
[2019-03-19 22:42] LABS: Albumin 2.5 g/dL (3.5-5.0); Calcium 8.2 mg/dL (8.4-10.2); Potassium 3.6 mmol/L (3.5-5.1); Total Bilirubin 1.3 mg/dL (0.2-1.3); Total Protein 3.9 g/dL (6.3-8.2)
[2019-03-19 22:43] LABS: INR 1.2 (<1.2); Partial Thromboplastin Time 28.3 sec (22.0-30.0)
[2019-03-19] MEDS ORDERED: POTASSIUM CHLORIDE 20 MEQ in WATER FOR INJECTION 1 100ML.BAG IVPB ONE (23:00)
[2019-03-19 23:15] LABS: Glucose,Whole Blood 162 mg/dL (75-99)
[2019-03-19] MEDS: IPRATROPIUM-ALBUTEROL 3 ML NEB INHALATION PRN (23:16)
[2019-03-20 00:10] LABS: Glucose,Whole Blood 156 mg/dL (75-99)
[2019-03-20] MEDS: HEPARIN SODIUM,PORCINE 5,000 UNIT/ML 1 ML VIAL SQ SCH ×4 (01:27→23:37)
[2019-03-20 01:28] LABS: Glucose,Whole Blood 141 mg/dL (75-99)
[2019-03-20 02:31] LABS: Glucose,Whole Blood 145 mg/dL (75-99)
[2019-03-20 03:12] LABS: Glucose,Whole Blood 144 mg/dL (75-99)
[2019-03-20] MEDS: IPRATROPIUM-ALBUTEROL 3 ML NEB INHALATION PRN (03:17)
[2019-03-20] MEDS: NOREPINEPHRINE 4 MG in SODIUM CHLORIDE 0.9% 250 ML IV SCH ×2 (03:30→07:04)
[2019-03-20 04:16] LABS: Glucose,Whole Blood 144 mg/dL (75-99)
[2019-03-20] MEDS: ALBUMIN HUMAN 5% 250 ML in EMPTY BAG 1 BAG IVPB PRN ×2 (04:19→07:04)
[2019-03-20] MEDS: PROPOFOL 1,000 MG in EMPTY BAG 1 BAG IV SCH ×3 (04:25→16:54)
[2019-03-20 04:58] LABS: Glucose,Whole Blood 140 mg/dL (75-99)
[2019-03-20 05:07] LABS: Ionized Calcium 4.9 mg/dL (4.5-5.3)
[2019-03-20 05:07] LABS: ABG Base Excess 4.7 mmol/L; ABG HCO3 28 mmol/L (21-25); ABG Oxygen Saturation 98.1 % (94-97); ABG PCO2 38 mmHg (35-45); ABG PH 7.48 (7.35-7.45); ABG PO2 92 mmHg (83-108); ABG TCO2 29 mmol/L (19-24)
[2019-03-20 05:14] LABS: INR 1.2 (<1.2); Partial Thromboplastin Time 28.6 sec (22.0-30.0); Prothrombin Time 12.1 sec (9.0-12.0)
[2019-03-20 05:25] LABS: Albumin 2.7 g/dL (3.5-5.0); Calcium 8.3 mg/dL (8.4-10.2); Magnesium 1.9 mg/dL (1.6-2.3); Phosphorus 2.2 mg/dL (2.5-4.5); Potassium 4.1 mmol/L (3.5-5.1)
[2019-03-20 05:38] LABS: Basophils % (A) 0 %; Eosinophils % (A) 0 %; HCT 23.8 % (34.0-46.0); HGB 8.2 gm/dL (11.4-16.0); Lymphocytes # (A) 0.8 k/uL (1.0-4.8); Lymphocytes % (A) 7 %; MCH 29.8 pg (25.0-35.0); MCHC 34.5 g/dL (31.0-37.0); MCV 86.3 fL (80.0-100.0); Mean Platelet Volume 8.1; Monocytes % (A) 9 %; Neutrophils # (A) 8.7 k/uL (1.3-7.7); Neutrophils % (A) 82 %; RBC 2.76 m/uL (3.80-5.40); WBC 10.5 k/uL (3.8-10.6)
[2019-03-20 05:41] LABS: Platelet Count 93 k/uL (150-450)
[2019-03-20] MEDS ORDERED: LEVOTHYROXINE 50 MCG TAB PO SCH (06:30)
[2019-03-20] MEDS ORDERED: EPINEPHrine 4 MG in DEXTROSE 5% IN WATER 250 ML IV SCH ×2 (07:00)
[2019-03-20] MEDS: IPRATROPIUM-ALBUTEROL 3 ML NEB INHALATION SCH ×4 (07:18→19:32)
[2019-03-20 07:25] LABS: Glucose,Whole Blood 120 mg/dL (75-99)
--- NOTE | 2019-03-20 08:10 | XR ---
EXAMINATION TYPE: XR chest 1V portable DATE OF EXAM: 03/20/2019 COMPARISON: 03/19/2019 HISTORY: Postop TECHNIQUE: Single frontal view of the chest is obtained. FINDINGS: There is be evidence of a aortic balloon pump marker. [place]-Rissa catheter, ET tube, NG tube , chest tube appear to be stable. Suggestion of mediastinal drain. Bilateral consolidation and pleura l effusion seen. Apical pleural thickening stable. No pneumothorax. Heart remains enlarged. IMPRESSION: 1. Postsurgical changes correlate for CHF. Underlying infiltrate or pneumonia not excluded.
[2019-03-20 08:26] LABS: ABG Base Excess 4.7 mmol/L; ABG HCO3 28 mmol/L (21-25); ABG Oxygen Saturation 96.6 % (94-97); ABG PCO2 39 mmHg (35-45); ABG PH 7.47 (7.35-7.45); ABG PO2 76 mmHg (83-108); ABG TCO2 30 mmol/L (19-24)
[2019-03-20 08:55] LABS: Glucose,Whole Blood 126 mg/dL (75-99)
[2019-03-20] MEDS ORDERED: NON-FORMULARY DRUG (Multivit-Min/Iron/Folic/Lutein [Centrum Silver Women Tablet] 1 TAB) PO SCH (09:00)
[2019-03-20] MEDS ORDERED: CHOLECALCIFEROL 1,000 UNIT TAB PO SCH (09:00)
[2019-03-20] MEDS ORDERED: MAGNESIUM HYDROXIDE 2,400 MG/10 ML CUP PO PRN (09:00)
[2019-03-20] MEDS ORDERED: CLOPIDOGREL 75 MG TAB PO SCH (09:00)
[2019-03-20] MEDS ORDERED: ASPIRIN 325 MG TAB PO SCH (09:00)
[2019-03-20 09:44] LABS: Glucose,Whole Blood 116 mg/dL (75-99)
[2019-03-20] MEDS: CHLORHEXIDINE GLUCONATE 15 ML CUP MUCOUS MEM SCH (10:18)
[2019-03-20] MEDS: METOPROLOL TARTRATE 12.5 MG TAB PO SCH ×2 (10:18→21:59)
[2019-03-20] MEDS: ATORVASTATIN 40 MG TAB PO SCH (10:18)
[2019-03-20] MEDS: PANTOPRAZOLE 40 MG/10 ML VIAL IVP SCH (10:19)
--- NOTE | 2019-03-20 10:38 | ECHOF ---
Referral Reason:tamponade MEASUREMENTS -------- HEIGHT: 177.8 cm WEIGHT: 117.0 kg BP: 116/48 AV maxP.05 mmHg AV meanP.53 mmHg RAP: 5.00 mmHg RVSP: 55.61 mmHg FINDINGS -------- This was a technically difficult study with suboptimal views. Limited study Overall left ventricular systolic function is mild-moderately impaired with, an EF between 40 - 45 %. Septal wall motion is delayed and consistent with prior cardiac surgery. [place] is hypokinetic Lumason used Peak/mean gradient across the Aortic Valve is 76.05mmHg / 43.53mmHg. There is high gradient on AO v alve but valve is not well visualized Mild tricuspid regurgitation present. There is severe pulmonary hypertension. The right ventricul ar systolic pressure, as measured by Doppler, is 55.61mmHg. There is no pericardial effusion. CONCLUSIONS -------- 1. This was a technically difficult study with suboptimal views. 2. Limited study 3. Overall left ventricular systolic function is mild-moderately impaired with, an EF between 40 - 45 %. 4. Septal wall motion is delayed and consistent with prior cardiac surgery. 5. [place] is hypokinetic 6. There is high gradient on AO valve but valve is not well visualized 7. Mild tricuspid regurgitation present. 8. There is severe pulmonary hypertension. 9. The right ventricular systolic pressure, as measured by Doppler, is 55.61mmHg. 10. Lumason used 11. Peak/mean gradient across the Aortic Valve is 76.05mmHg / 43.53mmHg. 12. There is no pericardial effusion. SLAG DUMPER: Kristen Carroll RDCS
[2019-03-20 10:56] LABS: ABG Base Excess 4.5 mmol/L; ABG HCO3 28 mmol/L (21-25); ABG Oxygen Saturation 96.6 % (94-97); ABG PCO2 37 mmHg (35-45); ABG PH 7.49 (7.35-7.45); ABG PO2 73 mmHg (83-108); ABG TCO2 29 mmol/L (19-24)
--- NOTE | 2019-03-20 10:59 | P.PN ---
Subjective Progress Note Date: 03/20/19 Principal diagnosis: Severe aortic valve stenosis and regurgitation, moderate to severe mitral regurgitation, 1 vessel coronary artery bypass This is a 79-year-old white female patient of Dr. Mati Vale, with a known history of aortic stenosis and regurgitation, hypertension, hyperlipidemia, hypothyroidism, moderate noncritical carotid artery stenosis, who was found to have significant decrease in LV function based on her echocardiogram in December 2018 with systolic/diastolic dysfunction. Recent underwent transesophageal echocardiogram on 02/05/2019 showing sclerotic and calcific aortic valve with severe aortic stenosis with area of the aortic valve calculated in the range of 1-1.1. There was moderate degree of mitral regurgitation, severely impaired left ventricle systolic function with estimated ejection fraction of 30%, and no evidence of thrombus in the left atrial appendage. Catheterization showed diffusely diseased LAD distally, RCA was dominant and disease free, circumflex had a 60-70% mid lesion. Yesterday on 03/19/2019 patient underwent aortic valve replacement with a #23 mm a villous hypostatic Medtr[employer] aortic valve, mitral valve repair with a #30 mm [employer] annular flex band, and single-vessel coronary artery bypass grafting with reverse SVG to the circumflex and ligation of the left atrial appendage with a #35 mm Atriclip. Patient had increased bleeding from the mediastinal chest tube first few hours of postoperative recovery, with at 1300 mL of sanguinous output in the first hour and a half. She was taken back to the OR for reexploration on 03/19/2019, and there was a large amount of clot present in and around the heart, with an area of slight degloving of the epicardium off of the anterolateral surface of the right ventricle. The clot was evacuated, hemostasis Was achieved by applying a patch. Patient was placed on the intra-aortic balloon pump via the right femoral artery and this morning she seen in follow-up in the intensive care unit. She remains sedated and intubated on mechanical ventilator, current vent settings are assist control mode of ventilation with a rate of 18, Tylenol 500, FiO2 40% and PEEP of 5, this morning's blood gas showed pO2 of 92, pCO2 38, and pH of 7.48, the mild degree of metabolic alkalosis. Repeat blood gas was also reviewed, after the rate was dropped down from 22-18, and showed pO2 of 76, pCO2 of 39, and pH of 7.47. Patient has received a total of 6 units of packed red blood cells, 5 of cryoprecipitate, 3 of fresh frozen plasma, and 2 units of platelets, this morning's blood work shows white blood cell count of 10.5, hemoglobin is 8.2, platelet count is 93, INR is 1.2, sodium is 140, potassium is 4.1, chloride was 109, CO2 is 27, B1 is 24 creatinine is 1.16. Aortic balloon pump is 123 augmentation, current drips include lactate urine is at a rate of 50 ML per hour, liters it is at 21 mics per minute, Diprivan is at 40 mics per kilo per minute, milrinone is at 0.2 mics per kilo per minute, nitroglycerin is off, and insulin drip is at 3 units per hour. Left pleural and left mediastinal chest tubes are in place, there has been a total of 246 mL out of the left pleural, and 800 mL out of the mediastinal chest tube in the last 12 hours, and chest tube output is averaging 10-30 ML per hour in the last several hours. Urine output is 40-60 ML per hour. She is in junctional rhythm with a controlled rate, epicardial wires to external pacemaker box with backup rate. Cardiac output is 6.6 and cardiac index is 3.0. Patient is waking up and following command, today's chest x-ray has been reviewed showing bilateral consolidation and pleural effusions, no pneumothorax. Objective - Vital Signs Vital signs: Vital Signs Temp 98.8 F 03/20/19 00:01 Pulse 82 03/20/19 07:34 Resp 22 03/20/19 07:00 BP 115/62 03/19/19 20:00 Pulse Ox 95 03/20/19 07:00 Intake & Output 03/19/19 03/20/19 03/20/19 18:59 06:59 18:59 Intake Total 6394 1941.351 345.968 Output Total 7868 2005 145 Balance -1426 -64.649 200.968 Weight 117.1 kg Intake: IV 3122 1111.5 329 Albumin Human 5% 250 ml 250 250 In Empty Bag 1 bag @ 250 mls/hr IVPB Q1HR PRN Rx#: [id number] CO/CI 120 200 20 Lactated Ringers 3000 600 50 Nitroglycerin-D5w Pmx 50 7.5 mg In Dextrose/Water 1 250ml.bag @ Per Protocol IV ONCE ONE Rx#:[id number] pressure bags 54 9 Intake, IV Titration 784.851 16.968 Amount Insulin Regular 100 unit 28.532 16.968 In Sodium Chloride 0.9% 100 ml @ Per Protocol IV .Q0M [facility] Rx#:[id number] Norepinephrine 4 mg In 655.335 Sodium Chloride 0.9% 250 ml @ 0.02 MCG/KG/MIN 7. 925 mls/hr IV .Q24H [facility] Rx#:[id number] Propofol 1,000 mg In 100.984 Empty Bag 1 bag @ Titrate IV .Q0M [facility] Rx#: [id number] Blood Product 3272 0 Ffp 24 Cp2d Unit 336 [id number] Ffp 24 Cp2d Unit 315 [id number] Ffp 24 Cpd Unit 336 [id number] Platelet Irr Pheresis 2 314 Acda Unit [id number] Platelet Irr Pheresis 2 301 Acda Unit [id number] Pooled Cryoprecipitate 120 Unit [id number] Rc As-1 Unit 310 [id number] Rc As-1 Unit 310 [id number] Rc As-1 Unit 310 [id number] Rc As-1 Unit 310 [id number] Rc As-1 Unit 310 [id number] Rc As-3 Unit 0 [id number] Other 45 Output: Chest Tube Drainage 2250 1046 80 Left Pleural 246 30 Mediastinal 800 50 Mediastinal/Left Pleural 2250 Gastric Drainage 100 Urine 770 860 65 Estimated Blood Loss 4800 Other: Voiding Method Indwelling Catheter Indwelling Catheter ABP, PAP, CO, CI - Last Documented Arterial Blood Pressure 126/52 Pulmonary Artery Pressure 44/27 Cardiac Output 5.9 Cardiac Index 2.7 - Exam GENERAL EXAM: intubated 79-year-old white female patient,, comfortable in no apparent distress. HEAD: Normocephalic/atraumatic. EYES: Normal reaction of pupils, equal size. Conjunctiva pink, sclera white. NOSE: Clear with pink turbinates. THROAT: No erythema or exudates. NECK: No masses, no JVD, no thyroid enlargement, no adenopathy. CHEST: No chest wall deformity. Symmetrical expansion. Midsternal incision is clean dry and intact, covered with surgical dressing, left pleural and mediastinal chest tubes with small amount of serosanguineous output in the [place], with no air leak, cardio wires connected to external pacemaker with a backup rate LUNGS: Equal air entry with no crackles, wheeze, rhonchi or dullness. CVS: Regular rate and rhythm, normal S1 and S2, no gallops, no murmurs, no rubs ABDOMEN: Soft, nontender. No hepatosplenomegaly, normal bowel sounds, no guarding or rigidity. EXTREMITIES: No clubbing, no edema, no cyanosis, 2+ pulses and upper and lower extremities. MUSCULOSKELETAL: Muscle strength and tone normal. SPINE: No scoliosis or deformity SKIN: No rashes CENTRAL NERVOUS SYSTEM: Sedated, intubated No focal deficits, tone is normal in all 4 extremities. - Labs CBC & Chem 7: 03/20/19 04:45 03/20/19 04:45 Labs: Abnormal Lab Results - Last 24 Hours (Table) 03/13/19 03/19/19 03/19/19 Range/Units 09:00 08:39 10:35 WBC (3.8-10.6) k/uL RBC (3.80-5.40) m/uL Hgb (11.4-16.0) gm/dL Hct (34.0-46.0) % Plt Count (150-450) k/uL Neutrophils # (1.3-7.7) k/uL Lymphocytes # (1.0-4.8) k/uL Monocytes # (0-1.0) k/uL PT (9.0-12.0) sec INR (<1.2) ABG pH 7.32 L (7.35-7.45) ABG pCO2 46 H (35-45) mmHg ABG pO2 >420 H 237 H (83-108) mmHg ABG HCO3 (21-25) mmol/L ABG Total CO2 25 H 25 H (19-24) mmol/L ABG O2 Saturation 100.0 H 100.0 H (94-97) % ABG Hematocrit 26 L (34.0-46.0) % ABG Potassium 5.5 H (3.4-4.5) mmol/L ABG Ionized Calcium (4.5-5.3) mg/dL ABG Glucose 101 H 193 H (75-99) mg/dL ABG Lactic Acid (0.5-1.6) mmol/L Hemoglobin 11.2 L 8.3 L (11.4-16.0) gm/dL Chloride (98-107) mmol/L BUN (7-17) mg/dL Creatinine (0.52-1.04) mg/dL Glucose (74-99) mg/dL POC Glucose (mg/dL) (75-99) mg/dL Calcium (8.4-10.2) mg/dL Phosphorus (2.5-4.5) mg/dL Magnesium (1.6-2.3) mg/dL Total Bilirubin (0.2-1.3) mg/dL AST (14-36) U/L Alkaline Phosphatase (38-126) U/L Total Protein (6.3-8.2) g/dL Albumin (3.5-5.0) g/dL Arterial Blood Potassium 5.5 H (3.4-4.5) mmol/L Arterial Blood Glucose 101 H 193 H (75-99) mg/dL Crossmatch See Detail 03/19/19 03/19/19 03/19/19 Range/Units 11:15 11:47 12:25 WBC (3.8-10.6) k/uL RBC (3.80-5.40) m/uL Hgb (11.4-16.0) gm/dL Hct (34.0-46.0) % Plt Count (150-450) k/uL Neutrophils # (1.3-7.7) k/uL Lymphocytes # (1.0-4.8) k/uL Monocytes # (0-1.0) k/uL PT (9.0-12.0) sec INR (<1.2) ABG pH 7.29 L (7.35-7.45) ABG pCO2 47 H (35-45) mmHg ABG pO2 243 H 285 H 200 H (83-108) mmHg ABG HCO3 (21-25) mmol/L ABG Total CO2 25 H (19-24) mmol/L ABG O2 Saturation 100.0 H 100.0 H 100.0 H (94-97) % ABG Hematocrit 25 L 25 L 24 L (34.0-46.0) % ABG Potassium 5.7 H 5.4 H 5.1 H (3.4-4.5) mmol/L ABG Ionized Calcium (4.5-5.3) mg/dL ABG Glucose 199 H 176 H 156 H (75-99) mg/dL ABG Lactic Acid 1.7 H 2.7 H* (0.5-1.6) mmol/L Hemoglobin 8.2 L 8.0 L 7.8 L (11.4-16.0) gm/dL Chloride (98-107) mmol/L BUN (7-17) mg/dL Creatinine (0.52-1.04) mg/dL Glucose (74-99) mg/dL POC Glucose (mg/dL) (75-99) mg/dL Calcium (8.4-10.2) mg/dL Phosphorus (2.5-4.5) mg/dL Magnesium (1.6-2.3) mg/dL Total Bilirubin (0.2-1.3) mg/dL AST (14-36) U/L Alkaline Phosphatase (38-126) U/L Total Protein (6.3-8.2) g/dL Albumin (3.5-5.0) g/dL Arterial Blood Potassium 5.7 H 5.4 H 5.1 H (3.4-4.5) mmol/L Arterial Blood Glucose 199 H 176 H 156 H (75-99) mg/dL Crossmatch 03/19/19 03/19/19 03/19/19 Range/Units 13:30 14:30 14:30 WBC 10.9 H (3.8-10.6) k/uL RBC 2.35 L (3.80-5.40) m/uL Hgb 7.2 L D (11.4-16.0) gm/dL Hct 21.3 L (34.0-46.0) % Plt Count 119 L (150-450) k/uL Neutrophils # 9.1 H (1.3-7.7) k/uL Lymphocytes # (1.0-4.8) k/uL Monocytes # (0-1.0) k/uL PT (9.0-12.0) sec INR (<1.2) ABG pH (7.35-7.45) ABG pCO2 (35-45) mmHg ABG pO2 192 H (83-108) mmHg ABG HCO3 26 H (21-25) mmol/L ABG Total CO2 28 H (19-24) mmol/L ABG O2 Saturation 100.0 H (94-97) % ABG Hematocrit 25 L (34.0-46.0) % ABG Potassium (3.4-4.5) mmol/L ABG Ionized Calcium 4.1 L (4.5-5.3) mg/dL ABG Glucose 143 H (75-99) mg/dL ABG Lactic Acid 2.2 H* (0.5-1.6) mmol/L Hemoglobin 8.0 L (11.4-16.0) gm/dL Chloride 108 H (98-107) mmol/L BUN 27 H (7-17) mg/dL Creatinine 1.23 H (0.52-1.04) mg/dL Glucose 157 H (74-99) mg/dL POC Glucose (mg/dL) (75-99) mg/dL Calcium (8.4-10.2) mg/dL Phosphorus (2.5-4.5) mg/dL Magnesium 2.5 H (1.6-2.3) mg/dL Total Bilirubin (0.2-1.3) mg/dL AST 39 H (14-36) U/L Alkaline Phosphatase 35 L (38-126) U/L Total Protein 4.3 L (6.3-8.2) g/dL Albumin 2.7 L (3.5-5.0) g/dL Arterial Blood Potassium (3.4-4.5) mmol/L Arterial Blood Glucose 143 H (75-99) mg/dL Crossmatch 03/19/19 03/19/19 03/19/19 Range/Units 14:30 14:38 15:04 WBC (3.8-10.6) k/uL RBC (3.80-5.40) m/uL Hgb (11.4-16.0) gm/dL Hct (34.0-46.0) % Plt Count (150-450) k/uL Neutrophils # (1.3-7.7) k/uL Lymphocytes # (1.0-4.8) k/uL Monocytes # (0-1.0) k/uL PT 12.2 H (9.0-12.0) sec INR 1.2 H (<1.2) ABG pH 7.29 L (7.35-7.45) ABG pCO2 50 H (35-45) mmHg ABG pO2 289 H (83-108) mmHg ABG HCO3 (21-25) mmol/L ABG Total CO2 26 H (19-24) mmol/L ABG O2 Saturation 99.8 H (94-97) % ABG Hematocrit (34.0-46.0) % ABG Potassium (3.4-4.5) mmol/L ABG Ionized Calcium (4.5-5.3) mg/dL ABG Glucose (75-99) mg/dL ABG Lactic Acid (0.5-1.6) mmol/L Hemoglobin (11.4-16.0) gm/dL Chloride (98-107) mmol/L BUN (7-17) mg/dL Creatinine (0.52-1.04) mg/dL Glucose (74-99) mg/dL POC Glucose (mg/dL) 180 H (75-99) mg/dL Calcium (8.4-10.2) mg/dL Phosphorus (2.5-4.5) mg/dL Magnesium (1.6-2.3) mg/dL Total Bilirubin (0.2-1.3) mg/dL AST (14-36) U/L Alkaline Phosphatase (38-126) U/L Total Protein (6.3-8.2) g/dL Albumin (3.5-5.0) g/dL Arterial Blood Potassium (3.4-4.5) mmol/L Arterial Blood Glucose (75-99) mg/dL Crossmatch 03/19/19 03/19/19 03/19/19 Range/Units 15:42 16:25 17:03 WBC (3.8-10.6) k/uL RBC (3.80-5.40) m/uL Hgb (11.4-16.0) gm/dL Hct (34.0-46.0) % Plt Count (150-450) k/uL Neutrophils # (1.3-7.7) k/uL Lymphocytes # (1.0-4.8) k/uL Monocytes # (0-1.0) k/uL PT (9.0-12.0) sec INR (<1.2) ABG pH 7.16 L* 7.22 L (7.35-7.45) ABG pCO2 55 H 48 H (35-45) mmHg ABG pO2 151 H 74 L 198 H (83-108) mmHg ABG HCO3 20 L 19 L (21-25) mmol/L ABG Total CO2 (19-24) mmol/L ABG O2 Saturation 99.3 H 93.4 L 99.9 H (94-97) % ABG Hematocrit 19 L* 23 L (34.0-46.0) % ABG Potassium (3.4-4.5) mmol/L ABG Ionized Calcium 4.4 L (4.5-5.3) mg/dL ABG Glucose 231 H 316 H (75-99) mg/dL ABG Lactic Acid 5.1 H* 7.2 H* (0.5-1.6) mmol/L Hemoglobin 6.1 L* 7.4 L (11.4-16.0) gm/dL Chloride (98-107) mmol/L BUN (7-17) mg/dL Creatinine (0.52-1.04) mg/dL Glucose (74-99) mg/dL POC Glucose (mg/dL) (75-99) mg/dL Calcium (8.4-10.2) mg/dL Phosphorus (2.5-4.5) mg/dL Magnesium (1.6-2.3) mg/dL Total Bilirubin (0.2-1.3) mg/dL AST (14-36) U/L Alkaline Phosphatase (38-126) U/L Total Protein (6.3-8.2) g/dL Albumin (3.5-5.0) g/dL Arterial Blood Potassium (3.4-4.5) mmol/L Arterial Blood Glucose 231 H 316 H (75-99) mg/dL Crossmatch 03/19/19 03/19/19 03/19/19 Range/Units 17:25 18:07 19:00 WBC (3.8-10.6) k/uL RBC 2.62 L (3.80-5.40) m/uL Hgb 7.6 L (11.4-16.0) gm/dL Hct 23.7 L (34.0-46.0) % Plt Count 73 L (150-450) k/uL Neutrophils # 8.9 H (1.3-7.7) k/uL Lymphocytes # 0.3 L (1.0-4.8) k/uL Monocytes # 1.2 H (0-1.0) k/uL PT (9.0-12.0) sec INR (<1.2) ABG pH 7.33 L (7.35-7.45) ABG pCO2 (35-45) mmHg ABG pO2 209 H (83-108) mmHg ABG HCO3 (21-25) mmol/L ABG Total CO2 26 H (19-24) mmol/L ABG O2 Saturation 100.0 H 99.0 H (94-97) % ABG Hematocrit 23 L 25 L (34.0-46.0) % ABG Potassium (3.4-4.5) mmol/L ABG Ionized Calcium 4.3 L (4.5-5.3) mg/dL ABG Glucose 291 H 253 H (75-99) mg/dL ABG Lactic Acid 7.0 H* 5.9 H* (0.5-1.6) mmol/L Hemoglobin 7.6 L 8.2 L (11.4-16.0) gm/dL Chloride (98-107) mmol/L BUN (7-17) mg/dL Creatinine (0.52-1.04) mg/dL Glucose (74-99) mg/dL POC Glucose (mg/dL) (75-99) mg/dL Calcium (8.4-10.2) mg/dL Phosphorus (2.5-4.5) mg/dL Magnesium (1.6-2.3) mg/dL Total Bilirubin (0.2-1.3) mg/dL AST (14-36) U/L Alkaline Phosphatase (38-126) U/L Total Protein (6.3-8.2) g/dL Albumin (3.5-5.0) g/dL Arterial Blood Potassium (3.4-4.5) mmol/L Arterial Blood Glucose 291 H 253 H (75-99) mg/dL Crossmatch 03/19/19 03/19/19 03/19/19 Range/Units 19:00 19:09 20:01 WBC (3.8-10.6) k/uL RBC (3.80-5.40) m/uL Hgb (11.4-16.0) gm/dL Hct (34.0-46.0) % Plt Count (150-450) k/uL Neutrophils # (1.3-7.7) k/uL Lymphocytes # (1.0-4.8) k/uL Monocytes # (0-1.0) k/uL PT (9.0-12.0) sec INR (<1.2) ABG pH 7.48 H (7.35-7.45) ABG pCO2 (35-45) mmHg ABG pO2 (83-108) mmHg ABG HCO3 27 H (21-25) mmol/L ABG Total CO2 28 H (19-24) mmol/L ABG O2 Saturation 98.6 H (94-97) % ABG Hematocrit (34.0-46.0) % ABG Potassium (3.4-4.5) mmol/L ABG Ionized Calcium (4.5-5.3) mg/dL ABG Glucose (75-99) mg/dL ABG Lactic Acid (0.5-1.6) mmol/L Hemoglobin (11.4-16.0) gm/dL Chloride 109 H (98-107) mmol/L BUN 24 H (7-17) mg/dL Creatinine (0.52-1.04) mg/dL Glucose 206 H (74-99) mg/dL POC Glucose (mg/dL) 249 H (75-99) mg/dL Calcium 7.8 L (8.4-10.2) mg/dL Phosphorus (2.5-4.5) mg/dL Magnesium (1.6-2.3) mg/dL Total Bilirubin 1.5 H (0.2-1.3) mg/dL AST 53 H (14-36) U/L Alkaline Phosphatase <20 L (38-126) U/L Total Protein 3.3 L (6.3-8.2) g/dL Albumin 2.0 L (3.5-5.0) g/dL Arterial Blood Potassium (3.4-4.5) mmol/L Arterial Blood Glucose (75-99) mg/dL Crossmatch 03/19/19 03/19/19 03/19/19 Range/Units 20:20 21:10 22:06 WBC (3.8-10.6) k/uL RBC (3.80-5.40) m/uL Hgb (11.4-16.0) gm/dL Hct (34.0-46.0) % Plt Count (150-450) k/uL Neutrophils # (1.3-7.7) k/uL Lymphocytes # (1.0-4.8) k/uL Monocytes # (0-1.0) k/uL PT (9.0-12.0) sec INR (<1.2) ABG pH (7.35-7.45) ABG pCO2 (35-45) mmHg ABG pO2 (83-108) mmHg ABG HCO3 (21-25) mmol/L ABG Total CO2 (19-24) mmol/L ABG O2 Saturation (94-97) % ABG Hematocrit (34.0-46.0) % ABG Potassium (3.4-4.5) mmol/L ABG Ionized Calcium (4.5-5.3) mg/dL ABG Glucose (75-99) mg/dL ABG Lactic Acid (0.5-1.6) mmol/L Hemoglobin (11.4-16.0) gm/dL Chloride (98-107) mmol/L BUN (7-17) mg/dL Creatinine (0.52-1.04) mg/dL Glucose (74-99) mg/dL POC Glucose (mg/dL) 237 H 206 H 200 H (75-99) mg/dL Calcium (8.4-10.2) mg/dL Phosphorus (2.5-4.5) mg/dL Magnesium (1.6-2.3) mg/dL Total Bilirubin (0.2-1.3) mg/dL AST (14-36) U/L Alkaline Phosphatase (38-126) U/L Total Protein (6.3-8.2) g/dL Albumin (3.5-5.0) g/dL Arterial Blood Potassium (3.4-4.5) mmol/L Arterial Blood Glucose (75-99) mg/dL Crossmatch 03/19/19 03/19/19 03/19/19 Range/Units 22:15 22:15 22:15 WBC (3.8-10.6) k/uL RBC 2.88 L (3.80-5.40) m/uL Hgb 8.7 L (11.4-16.0) gm/dL Hct 25.1 L (34.0-46.0) % Plt Count 92 L (150-450) k/uL Neutrophils # (1.3-7.7) k/uL Lymphocytes # (1.0-4.8) k/uL Monocytes # (0-1.0) k/uL PT (9.0-12.0) sec INR 1.2 H (<1.2) ABG pH (7.35-7.45) ABG pCO2 (35-45) mmHg ABG pO2 (83-108) mmHg ABG HCO3 (21-25) mmol/L ABG Total CO2 (19-24) mmol/L ABG O2 Saturation (94-97) % ABG Hematocrit (34.0-46.0) % ABG Potassium (3.4-4.5) mmol/L ABG Ionized Calcium (4.5-5.3) mg/dL ABG Glucose (75-99) mg/dL ABG Lactic Acid (0.5-1.6) mmol/L Hemoglobin (11.4-16.0) gm/dL Chloride 108 H (98-107) mmol/L BUN 23 H (7-17) mg/dL Creatinine 1.09 H (0.52-1.04) mg/dL Glucose 175 H (74-99) mg/dL POC Glucose (mg/dL) (75-99) mg/dL Calcium 8.2 L (8.4-10.2) mg/dL Phosphorus (2.5-4.5) mg/dL Magnesium (1.6-2.3) mg/dL Total Bilirubin (0.2-1.3) mg/dL AST 73 H (14-36) U/L Alkaline Phosphatase 24 L (38-126) U/L Total Protein 3.9 L (6.3-8.2) g/dL Albumin 2.5 L (3.5-5.0) g/dL Arterial Blood Potassium (3.4-4.5) mmol/L Arterial Blood Glucose (75-99) mg/dL Crossmatch 03/19/19 03/19/19 03/20/19 Range/Units 23:04 23:59 01:17 WBC (3.8-10.6) k/uL RBC (3.80-5.40) m/uL Hgb (11.4-16.0) gm/dL Hct (34.0-46.0) % Plt Count (150-450) k/uL Neutrophils # (1.3-7.7) k/uL Lymphocytes # (1.0-4.8) k/uL Monocytes # (0-1.0) k/uL PT (9.0-12.0) sec INR (<1.2) ABG pH (7.35-7.45) ABG pCO2 (35-45) mmHg ABG pO2 (83-108) mmHg ABG HCO3 (21-25) mmol/L ABG Total CO2 (19-24) mmol/L ABG O2 Saturation (94-97) % ABG Hematocrit (34.0-46.0) % ABG Potassium (3.4-4.5) mmol/L ABG Ionized Calcium (4.5-5.3) mg/dL ABG Glucose (75-99) mg/dL ABG Lactic Acid (0.5-1.6) mmol/L Hemoglobin (11.4-16.0) gm/dL Chloride (98-107) mmol/L BUN (7-17) mg/dL Creatinine (0.52-1.04) mg/dL Glucose (74-99) mg/dL POC Glucose (mg/dL) 162 H 156 H 141 H (75-99) mg/dL Calcium (8.4-10.2) mg/dL Phosphorus (2.5-4.5) mg/dL Magnesium (1.6-2.3) mg/dL Total Bilirubin (0.2-1.3) mg/dL AST (14-36) U/L Alkaline Phosphatase (38-126) U/L Total Protein (6.3-8.2) g/dL Albumin (3.5-5.0) g/dL Arterial Blood Potassium (3.4-4.5) mmol/L Arterial Blood Glucose (75-99) mg/dL Crossmatch 03/20/19 03/20/19 03/20/19 Range/Units 02:20 03:01 04:05 WBC (3.8-10.6) k/uL RBC (3.80-5.40) m/uL Hgb (11.4-16.0) gm/dL Hct (34.0-46.0) % Plt Count (150-450) k/uL Neutrophils # (1.3-7.7) k/uL Lymphocytes # (1.0-4.8) k/uL Monocytes # (0-1.0) k/uL PT (9.0-12.0) sec INR (<1.2) ABG pH (7.35-7.45) ABG pCO2 (35-45) mmHg ABG pO2 (83-108) mmHg ABG HCO3 (21-25) mmol/L ABG Total CO2 (19-24) mmol/L ABG O2 Saturation (94-97) % ABG Hematocrit (34.0-46.0) % ABG Potassium (3.4-4.5) mmol/L ABG Ionized Calcium (4.5-5.3) mg/dL ABG Glucose (75-99) mg/dL ABG Lactic Acid (0.5-1.6) mmol/L Hemoglobin (11.4-16.0) gm/dL Chloride (98-107) mmol/L BUN (7-17) mg/dL Creatinine (0.52-1.04) mg/dL Glucose (74-99) mg/dL POC Glucose (mg/dL) 145 H 144 H 144 H (75-99) mg/dL Calcium (8.4-10.2) mg/dL Phosphorus (2.5-4.5) mg/dL Magnesium (1.6-2.3) mg/dL Total Bilirubin (0.2-1.3) mg/dL AST (14-36) U/L Alkaline Phosphatase (38-126) U/L Total Protein (6.3-8.2) g/dL Albumin (3.5-5.0) g/dL Arterial Blood Potassium (3.4-4.5) mmol/L Arterial Blood Glucose (75-99) mg/dL Crossmatch 03/20/19 03/20/19 03/20/19 Range/Units 04:45 04:45 04:45 WBC (3.8-10.6) k/uL RBC 2.76 L (3.80-5.40) m/uL Hgb 8.2 L (11.4-16.0) gm/dL Hct 23.8 L (34.0-46.0) % Plt Count 93 L (150-450) k/uL Neutrophils # 8.7 H (1.3-7.7) k/uL Lymphocytes # 0.8 L (1.0-4.8) k/uL Monocytes # (0-1.0) k/uL PT 12.1 H (9.0-12.0) sec INR 1.2 H (<1.2) ABG pH (7.35-7.45) ABG pCO2 (35-45) mmHg ABG pO2 (83-108) mmHg ABG HCO3 (21-25) mmol/L ABG Total CO2 (19-24) mmol/L ABG O2 Saturation (94-97) % ABG Hematocrit (34.0-46.0) % ABG Potassium (3.4-4.5) mmol/L ABG Ionized Calcium (4.5-5.3) mg/dL ABG Glucose (75-99) mg/dL ABG Lactic Acid (0.5-1.6) mmol/L Hemoglobin (11.4-16.0) gm/dL Chloride 109 H (98-107) mmol/L BUN 24 H (7-17) mg/dL Creatinine 1.16 H (0.52-1.04) mg/dL Glucose 134 H (74-99) mg/dL POC Glucose (mg/dL) (75-99) mg/dL Calcium 8.3 L (8.4-10.2) mg/dL Phosphorus 2.2 L (2.5-4.5) mg/dL Magnesium (1.6-2.3) mg/dL Total Bilirubin (0.2-1.3) mg/dL AST 84 H (14-36) U/L Alkaline Phosphatase 26 L (38-126) U/L Total Protein 4.0 L (6.3-8.2) g/dL Albumin 2.7 L (3.5-5.0) g/dL Arterial Blood Potassium (3.4-4.5) mmol/L Arterial Blood Glucose (75-99) mg/dL Crossmatch 03/20/19 03/20/19 03/20/19 Range/Units 04:47 05:02 07:14 WBC (3.8-10.6) k/uL RBC (3.80-5.40) m/uL Hgb (11.4-16.0) gm/dL Hct (34.0-46.0) % Plt Count (150-450) k/uL Neutrophils # (1.3-7.7) k/uL Lymphocytes # (1.0-4.8) k/uL Monocytes # (0-1.0) k/uL PT (9.0-12.0) sec INR (<1.2) ABG pH 7.48 H (7.35-7.45) ABG pCO2 (35-45) mmHg ABG pO2 (83-108) mmHg ABG HCO3 28 H (21-25) mmol/L ABG Total CO2 29 H (19-24) mmol/L ABG O2 Saturation 98.1 H (94-97) % ABG Hematocrit (34.0-46.0) % ABG Potassium (3.4-4.5) mmol/L ABG Ionized Calcium (4.5-5.3) mg/dL ABG Glucose (75-99) mg/dL ABG Lactic Acid (0.5-1.6) mmol/L Hemoglobin (11.4-16.0) gm/dL Chloride (98-107) mmol/L BUN (7-17) mg/dL Creatinine (0.52-1.04) mg/dL Glucose (74-99) mg/dL POC Glucose (mg/dL) 140 H 120 H (75-99) mg/dL Calcium (8.4-10.2) mg/dL Phosphorus (2.5-4.5) mg/dL Magnesium (1.6-2.3) mg/dL Total Bilirubin (0.2-1.3) mg/dL AST (14-36) U/L Alkaline Phosphatase (38-126) U/L Total Protein (6.3-8.2) g/dL Albumin (3.5-5.0) g/dL Arterial Blood Potassium (3.4-4.5) mmol/L Arterial Blood Glucose (75-99) mg/dL Crossmatch 03/20/19 03/20/19 03/20/19 Range/Units 08:17 08:24 09:16 WBC (3.8-10.6) k/uL RBC (3.80-5.40) m/uL Hgb (11.4-16.0) gm/dL Hct (34.0-46.0) % Plt Count (150-450) k/uL Neutrophils # (1.3-7.7) k/uL Lymphocytes # (1.0-4.8) k/uL Monocytes # (0-1.0) k/uL PT (9.0-12.0) sec INR (<1.2) ABG pH 7.47 H (7.35-7.45) ABG pCO2 (35-45) mmHg ABG pO2 76 L (83-108) mmHg ABG HCO3 28 H (21-25) mmol/L ABG Total CO2 30 H (19-24) mmol/L ABG O2 Saturation (94-97) % ABG Hematocrit (34.0-46.0) % ABG Potassium (3.4-4.5) mmol/L ABG Ionized Calcium (4.5-5.3) mg/dL ABG Glucose (75-99) mg/dL ABG Lactic Acid (0.5-1.6) mmol/L Hemoglobin (11.4-16.0) gm/dL Chloride (98-107) mmol/L BUN (7-17) mg/dL Creatinine (0.52-1.04) mg/dL Glucose (74-99) mg/dL POC Glucose (mg/dL) 126 H 116 H (75-99) mg/dL Calcium (8.4-10.2) mg/dL Phosphorus (2.5-4.5) mg/dL Magnesium (1.6-2.3) mg/dL Total Bilirubin (0.2-1.3) mg/dL AST (14-36) U/L Alkaline Phosphatase (38-126) U/L Total Protein (6.3-8.2) g/dL Albumin (3.5-5.0) g/dL Arterial Blood Potassium (3.4-4.5) mmol/L Arterial Blood Glucose (75-99) mg/dL Crossmatch Assessment and Plan Plan: Assessment: #1. Severe aortic valve stenosis, and moderate to severe mitral valve regurgitation, and coronary artery disease status post aortic valve replacement with a bioprosthetic valve, mitral valve repair with the annual flex band, and single vessel bypass grafting with reverse SVG off of the aorta to the circumflex artery and left atrial appendage exclusion with the ATriclip, postop day 1 #2. Postoperative bleeding, status post emergent reexploration of the chest and evacuation of clot and control of bleeding #3. Acute blood loss anemia related to the above, status post transfusion with 6 units of RBCs, 5 units of cryoprecipitate, 3 units of rest frozen plasma, and 2 units of platelets #4. Routine ventilator management #5. Secondary pulmonary hypertension #6. Ischemic cardiomyopathy #7. Hypertension #8. Hyperlipidemia #9. Hypothyroidism Plan: Today's chest x-ray has been reviewed showing bilateral consolidation and pleur al effusions, no pneumothorax. CT surgery is planning on discontinuing the intra-aortic balloon pump. Decreased output from the chest tubes, morning's hemoglobin is 8.2, still remains on small amount of milrinone, and vasopressor support. Vent adjustments were made this morning, follow blood gases reviewed showing mild degree of metabolic alkalosis. Patient is waking up and following command, we'll proceed with spontaneous breathing trials, and possible extubation today, continue with breathing treatments, incentive spirometry to the bedside after extubation. We'll continue to closely follow with CT surgery. I performed a history & physical examination of the patient and discussed their management with my nurse practitioner, Kassie Og. I reviewed the nurse practitioner's note and agree with the documented findings and plan of care. Lung sounds are positive for diminished breath sounds. The findings and the impression was discussed with the patient. I attest to the documentation by the nurse practitioner. Time with Patient: Greater than 30
[2019-03-20] MEDS: NOREPINEPHRINE 32 MG in SODIUM CHLORIDE 0.9% 218 ML IV SCH (11:19)
[2019-03-20] MEDS: ceFAZolin IN SWFI 2 GM/20 ML SYRINGE IVP SCH (11:19)
[2019-03-20] MEDS: LACTATED RINGERS 1,000 ML IV SCH (11:21)
[2019-03-20 11:24] LABS: Glucose,Whole Blood 119 mg/dL (75-99)
[2019-03-20] MEDS: MUPIROCIN 2% OINT 22 GM TUBE NASAL SCH ×2 (11:31→21:59)
[2019-03-20] MEDS: MILRINONE-D5W PMX 20 MG in DEXTROSE/WATER 1 100ML.BAG IV SCH (11:33)
[2019-03-20] MEDS ORDERED: Phosphorus Replacement Protoco 1 EACH MISC MISCELLANE PRN (11:51)
[2019-03-20] MEDS ORDERED: SODIUM PHOSPHATE 10 MMOL in SODIUM CHLORIDE 0.9% 100 ML IVPB ONE (11:51)
--- NOTE | 2019-03-20 12:27 | P.PN ---
Subjective Progress Note Date: 03/20/19 Principal diagnosis: Severe aortic valve stenosis with severe aortic valve regurgitation, moderate to severe mitral valve regurgitation, single-vessel coronary artery disease, and a decreased LV function with a preoperative ejection fraction of 30%. History of hypertension, hyperlipidemia, thyroid disorder, osteoarthritis and a non- critical carotid stenosis with a 50-70% right ICA stenosis. POD #1 aortic valve replacement with a #23 mm Avalus bioprosthetic Medtronic aortic valve, mitral valve repair with a #30 mm Carbomedics AnnuloFlex band. Coronary artery bypass grafting 1 vessel with a reverse greater saphenous vein off the aorta to the circumflex coronary artery and a clip ligation of the left atrial appendage with a 35 mm Atriclip. Intraoperative transesophageal echocardiogram. Acute postoperative bleeding, an unexpected outcome POD #1 Emergent reexploration of the chest, evacuation of clots and control of bleed. POD #1 placement of intra-aortic balloon pump. The patient remains in bed in the intensive care unit. She is in no acute distress. Postoperatively the patient had some bleeding through her mediastinal and left pleural chest tubes with 1.3 L of drainage out within the first couple of hours postoperatively. She was subsequently taken back to the operating room for an emergent reexploration of the chest and evacuation of clots and control of bleeding. She remains intubated with mechanical ventilator support and remains sedated on propofol drip. Current mechanical ventilator settings are as follows: AC 22, TV 500, FiO2 40%, PEEP 8. She opens up her eyes to verbal stimuli, follows simple commands appropriately and moves all 4 extremities appropriately. She remains with the intra-aortic balloon pump in place on a 1.1 setting. Norepinephrine drip at 20 mcg/m and Primacor drip remains at 0.2 mcg/kg/m. Right IJ Calumet-Rissa in place, current cardiac output 5.9, cardiac index 2.7, PA pressures 44/22, CVP 14 mmHg. Epicardial pacemaker wires remain in place to bedside backup pacemaker generator on a VVI of 50. Mediastinal and left pleural chest tubes remain in place to low continuous wall suction at -20 cm H2O. The mediastinal chest tube drained 310 mL output in the last 8 hours and 850 mL since her reoperation. Left pleural chest tube has drained 120 mL output in the last 8 hours, and 300 mL since her reoperation. Objective - Vital Signs Vital signs: Vital Signs Temp 98.8 F 03/20/19 00:01 Pulse 82 03/20/19 07:34 Resp 22 03/20/19 07:00 BP 115/62 03/19/19 20:00 Pulse Ox 95 03/20/19 07:00 Intake & Output 03/19/19 03/20/19 03/20/19 18:59 06:59 18:59 Intake Total 6394 1941.351 345.968 Output Total 7820 2006 145 Balance -1426 -64.649 200.968 Weight 117.1 kg Intake: IV 3122 1111.5 329 Albumin Human 5% 250 ml 250 250 In Empty Bag 1 bag @ 250 mls/hr IVPB Q1HR PRN Rx#: [id number] CO/CI 120 200 20 Lactated Ringers 3000 600 50 Nitroglycerin-D5w Pmx 50 7.5 mg In Dextrose/Water 1 250ml.bag @ Per Protocol IV ONCE ONE Rx#:[id number] pressure bags 54 9 Intake, IV Titration 784.851 16.968 Amount Insulin Regular 100 unit 28.532 16.968 In Sodium Chloride 0.9% 100 ml @ Per Protocol IV .Q0M [facility] Rx#:[id number] Norepinephrine 4 mg In 655.335 Sodium Chloride 0.9% 250 ml @ 0.02 MCG/KG/MIN 7. 925 mls/hr IV .Q24H [facility] Rx#:[id number] Propofol 1,000 mg In 100.984 Empty Bag 1 bag @ Titrate IV .Q0M [facility] Rx#: [id number] Blood Product 3272 0 Ffp 24 Cp2d Unit 336 [id number] Ffp 24 Cp2d Unit 315 [id number] Ffp 24 Cpd Unit 336 [id number] Platelet Irr Pheresis 2 314 Acda Unit [id number] Platelet Irr Pheresis 2 301 Acda Unit [id number] Pooled Cryoprecipitate 120 Unit [id number] Rc As-1 Unit 310 [id number] Rc As-1 Unit 310 [id number] Rc As-1 Unit 310 [id number] Rc As-1 Unit 310 [id number] Rc As-1 Unit 310 [id number] Rc As-3 Unit 0 [id number] Other 45 Output: Chest Tube Drainage 2250 1046 80 Left Pleural 246 30 Mediastinal 800 50 Mediastinal/Left Pleural 2250 Gastric Drainage 100 Urine 770 860 65 Estimated Blood Loss 4800 Other: Voiding Method Indwelling Catheter Indwelling Catheter ABP, PAP, CO, CI - Last Documented Arterial Blood Pressure 126/52 Pulmonary Artery Pressure 44/27 Cardiac Output 5.9 Cardiac Index 2.7 - Constitutional Constitutional Comment(s): Remains sedated on propofol drip at 20 mcg/kg/m. Moving all 4 extremities appropriately. Shaking her head yes and no appropriately to verbal stimuli. General appearance: Present: cooperative, no acute distress, obese - Respiratory Details: Lung sounds essentially clear to her bilateral upper lobes, diminished bilateral bases. Respirations remain symmetrical and nonlabored with mechanical ventilator support. She remains intubated. Current mechanical ventilator settings are as follows:AC 22, TV 500, FiO2 40%, PEEP of 8. Mediastinal and left pleural chest tubes remain in place to low continuous wall suction -20 cm H2O. No air leak is present. Draining thin serosanguineous drainage. Mediastinal chest tubes with 310 mL output in the last 8 hours, 850 mL output since her reoperation. Left pleural chest tube with 120 mL output in the last 8 hours, 300 mL output since her reoperation. - Cardiovascular Details: Regular rhythm and rate. S1 and S2 present, negative for S3, gallop or murmur. Sternum is stable. Bedside telemetry showing accelerated junctional rhythm heart rate 88. Atrial and ventricular epicardial pacemaker wires in place and connected to a backup pacemaker generator on a VVI backup of 50. Right IJ Cordis and Calumet-Rissa catheter in place and functioning. Right radial arterial line in place and functioning. Knee-high LAUREL hose and sequential compression devices in place to bilateral lower extremities. Right femoral sheath in place with intra-aortic balloon pump on a one to one setting. Right femoral insertion site clean and soft palpate. Peripheral pulses present. - Gastrointestinal Gastrointestinal Comment(s): Abdomen is soft, nontender and nondistended. Hypoactive bowel sounds present all 4 abdominal quadrants. No guarding or rigidity. No organomegaly. OG tube in place to low intermittent wall suction. - Genitourinary Genitourinary Comment(s): Lovett catheter for accurate I&O. Draining clear yellow urine. 380 mL output in the last 8 hours. - Integumentary Integumentary Comment(s): Skin is warm and dry. No clubbing or cyanosis is present. Midline sternal incision is clean, dry and approximated. No drainage or redness is present. Gauze dressing is clean, dry and in place. Left lower extremity EVH site is clean, dry and approximated. No drainage or redness is present. Right femoral intra-aortic balloon pump site is clean, dry and soft palpate. - Neurologic Neurologic Comment(s): Sedated on propofol drip. Neurologic: Present: CNII-XII intact - Musculoskeletal Musculoskeletal Comment(s): Bed rest at this time. Moving all 4 extremities appropriately with generalized weakness. - Psychiatric Psychiatric Comment(s): Remains sedated on propofol drip. Following simple commands appropriately with verbal stimuli. - Allied health notes Allied health notes reviewed: nursing - Labs CBC & Chem 7: 03/20/19 04:45 03/20/19 04:45 Labs: Abnormal Lab Results - Last 24 Hours (Table) 03/13/19 03/19/19 03/19/19 Range/Units 09:00 08:39 10:35 WBC (3.8-10.6) k/uL RBC (3.80-5.40) m/uL Hgb (11.4-16.0) gm/dL Hct (34.0-46.0) % Plt Count (150-450) k/uL Neutrophils # (1.3-7.7) k/uL Lymphocytes # (1.0-4.8) k/uL Monocytes # (0-1.0) k/uL PT (9.0-12.0) sec INR (<1.2) ABG pH 7.32 L (7.35-7.45) ABG pCO2 46 H (35-45) mmHg ABG pO2 >420 H 237 H (83-108) mmHg ABG HCO3 (21-25) mmol/L ABG Total CO2 25 H 25 H (19-24) mmol/L ABG O2 Saturation 100.0 H 100.0 H (94-97) % ABG Hematocrit 26 L (34.0-46.0) % ABG Potassium 5.5 H (3.4-4.5) mmol/L ABG Ionized Calcium (4.5-5.3) mg/dL ABG Glucose 101 H 193 H (75-99) mg/dL ABG Lactic Acid (0.5-1.6) mmol/L Hemoglobin 11.2 L 8.3 L (11.4-16.0) gm/dL Chloride (98-107) mmol/L BUN (7-17) mg/dL Creatinine (0.52-1.04) mg/dL Glucose (74-99) mg/dL POC Glucose (mg/dL) (75-99) mg/dL Calcium (8.4-10.2) mg/dL Phosphorus (2.5-4.5) mg/dL Magnesium (1.6-2.3) mg/dL Total Bilirubin (0.2-1.3) mg/dL AST (14-36) U/L Alkaline Phosphatase (38-126) U/L Total Protein (6.3-8.2) g/dL Albumin (3.5-5.0) g/dL Arterial Blood Potassium 5.5 H (3.4-4.5) mmol/L Arterial Blood Glucose 101 H 193 H (75-99) mg/dL Crossmatch See Detail 03/19/19 03/19/19 03/19/19 Range/Units 11:15 11:47 12:25 WBC (3.8-10.6) k/uL RBC (3.80-5.40) m/uL Hgb (11.4-16.0) gm/dL Hct (34.0-46.0) % Plt Count (150-450) k/uL Neutrophils # (1.3-7.7) k/uL Lymphocytes # (1.0-4.8) k/uL Monocytes # (0-1.0) k/uL PT (9.0-12.0) sec INR (<1.2) ABG pH 7.29 L (7.35-7.45) ABG pCO2 47 H (35-45) mmHg ABG pO2 243 H 285 H 200 H (83-108) mmHg ABG HCO3 (21-25) mmol/L ABG Total CO2 25 H (19-24) mmol/L ABG O2 Saturation 100.0 H 100.0 H 100.0 H (94-97) % ABG Hematocrit 25 L 25 L 24 L (34.0-46.0) % ABG Potassium 5.7 H 5.4 H 5.1 H (3.4-4.5) mmol/L ABG Ionized Calcium (4.5-5.3) mg/dL ABG Glucose 199 H 176 H 156 H (75-99) mg/dL ABG Lactic Acid 1.7 H 2.7 H* (0.5-1.6) mmol/L Hemoglobin 8.2 L 8.0 L 7.8 L (11.4-16.0) gm/dL Chloride (98-107) mmol/L BUN (7-17) mg/dL Creatinine (0.52-1.04) mg/dL Glucose (74-99) mg/dL POC Glucose (mg/dL) (75-99) mg/dL Calcium (8.4-10.2) mg/dL Phosphorus (2.5-4.5) mg/dL Magnesium (1.6-2.3) mg/dL Total Bilirubin (0.2-1.3) mg/dL AST (14-36) U/L Alkaline Phosphatase (38-126) U/L Total Protein (6.3-8.2) g/dL Albumin (3.5-5.0) g/dL Arterial Blood Potassium 5.7 H 5.4 H 5.1 H (3.4-4.5) mmol/L Arterial Blood Glucose 199 H 176 H 156 H (75-99) mg/dL Crossmatch 03/19/19 03/19/19 03/19/19 Range/Units 13:30 14:30 14:30 WBC 10.9 H (3.8-10.6) k/uL RBC 2.35 L (3.80-5.40) m/uL Hgb 7.2 L D (11.4-16.0) gm/dL Hct 21.3 L (34.0-46.0) % Plt Count 119 L (150-450) k/uL Neutrophils # 9.1 H (1.3-7.7) k/uL Lymphocytes # (1.0-4.8) k/uL Monocytes # (0-1.0) k/uL PT (9.0-12.0) sec INR (<1.2) ABG pH (7.35-7.45) ABG pCO2 (35-45) mmHg ABG pO2 192 H (83-108) mmHg ABG HCO3 26 H (21-25) mmol/L ABG Total CO2 28 H (19-24) mmol/L ABG O2 Saturation 100.0 H (94-97) % ABG Hematocrit 25 L (34.0-46.0) % ABG Potassium (3.4-4.5) mmol/L ABG Ionized Calcium 4.1 L (4.5-5.3) mg/dL ABG Glucose 143 H (75-99) mg/dL ABG Lactic Acid 2.2 H* (0.5-1.6) mmol/L Hemoglobin 8.0 L (11.4-16.0) gm/dL Chloride 108 H (98-107) mmol/L BUN 27 H (7-17) mg/dL Creatinine 1.23 H (0.52-1.04) mg/dL Glucose 157 H (74-99) mg/dL POC Glucose (mg/dL) (75-99) mg/dL Calcium (8.4-10.2) mg/dL Phosphorus (2.5-4.5) mg/dL Magnesium 2.5 H (1.6-2.3) mg/dL Total Bilirubin (0.2-1.3) mg/dL AST 39 H (14-36) U/L Alkaline Phosphatase 35 L (38-126) U/L Total Protein 4.3 L (6.3-8.2) g/dL Albumin 2.7 L (3.5-5.0) g/dL Arterial Blood Potassium (3.4-4.5) mmol/L Arterial Blood Glucose 143 H (75-99) mg/dL Crossmatch 03/19/19 03/19/19 03/19/19 Range/Units 14:30 14:38 15:04 WBC (3.8-10.6) k/uL RBC (3.80-5.40) m/uL Hgb (11.4-16.0) gm/dL Hct (34.0-46.0) % Plt Count (150-450) k/uL Neutrophils # (1.3-7.7) k/uL Lymphocytes # (1.0-4.8) k/uL Monocytes # (0-1.0) k/uL PT 12.2 H (9.0-12.0) sec INR 1.2 H (<1.2) ABG pH 7.29 L (7.35-7.45) ABG pCO2 50 H (35-45) mmHg ABG pO2 289 H (83-108) mmHg ABG HCO3 (21-25) mmol/L ABG Total CO2 26 H (19-24) mmol/L ABG O2 Saturation 99.8 H (94-97) % ABG Hematocrit (34.0-46.0) % ABG Potassium (3.4-4.5) mmol/L ABG Ionized Calcium (4.5-5.3) mg/dL ABG Glucose (75-99) mg/dL ABG Lactic Acid (0.5-1.6) mmol/L Hemoglobin (11.4-16.0) gm/dL Chloride (98-107) mmol/L BUN (7-17) mg/dL Creatinine (0.52-1.04) mg/dL Glucose (74-99) mg/dL POC Glucose (mg/dL) 180 H (75-99) mg/dL Calcium (8.4-10.2) mg/dL Phosphorus (2.5-4.5) mg/dL Magnesium (1.6-2.3) mg/dL Total Bilirubin (0.2-1.3) mg/dL AST (14-36) U/L Alkaline Phosphatase (38-126) U/L Total Protein (6.3-8.2) g/dL Albumin (3.5-5.0) g/dL Arterial Blood Potassium (3.4-4.5) mmol/L Arterial Blood Glucose (75-99) mg/dL Crossmatch 03/19/19 03/19/19 03/19/19 Range/Units 15:42 16:25 17:03 WBC (3.8-10.6) k/uL RBC (3.80-5.40) m/uL Hgb (11.4-16.0) gm/dL Hct (34.0-46.0) % Plt Count (150-450) k/uL Neutrophils # (1.3-7.7) k/uL Lymphocytes # (1.0-4.8) k/uL Monocytes # (0-1.0) k/uL PT (9.0-12.0) sec INR (<1.2) ABG pH 7.16 L* 7.22 L (7.35-7.45) ABG pCO2 55 H 48 H (35-45) mmHg ABG pO2 151 H 74 L 198 H (83-108) mmHg ABG HCO3 20 L 19 L (21-25) mmol/L ABG Total CO2 (19-24) mmol/L ABG O2 Saturation 99.3 H 93.4 L 99.9 H (94-97) % ABG Hematocrit 19 L* 23 L (34.0-46.0) % ABG Potassium (3.4-4.5) mmol/L ABG Ionized Calcium 4.4 L (4.5-5.3) mg/dL ABG Glucose 231 H 316 H (75-99) mg/dL ABG Lactic Acid 5.1 H* 7.2 H* (0.5-1.6) mmol/L Hemoglobin 6.1 L* 7.4 L (11.4-16.0) gm/dL Chloride (98-107) mmol/L BUN (7-17) mg/dL Creatinine (0.52-1.04) mg/dL Glucose (74-99) mg/dL POC Glucose (mg/dL) (75-99) mg/dL Calcium (8.4-10.2) mg/dL Phosphorus (2.5-4.5) mg/dL Magnesium (1.6-2.3) mg/dL Total Bilirubin (0.2-1.3) mg/dL AST (14-36) U/L Alkaline Phosphatase (38-126) U/L Total Protein (6.3-8.2) g/dL Albumin (3.5-5.0) g/dL Arterial Blood Potassium (3.4-4.5) mmol/L Arterial Blood Glucose 231 H 316 H (75-99) mg/dL Crossmatch 03/19/19 03/19/19 03/19/19 Range/Units 17:25 18:07 19:00 WBC (3.8-10.6) k/uL RBC 2.62 L (3.80-5.40) m/uL Hgb 7.6 L (11.4-16.0) gm/dL Hct 23.7 L (34.0-46.0) % Plt Count 73 L (150-450) k/uL Neutrophils # 8.9 H (1.3-7.7) k/uL Lymphocytes # 0.3 L (1.0-4.8) k/uL Monocytes # 1.2 H (0-1.0) k/uL PT (9.0-12.0) sec INR (<1.2) ABG pH 7.33 L (7.35-7.45) ABG pCO2 (35-45) mmHg ABG pO2 209 H (83-108) mmHg ABG HCO3 (21-25) mmol/L ABG Total CO2 26 H (19-24) mmol/L ABG O2 Saturation 100.0 H 99.0 H (94-97) % ABG Hematocrit 23 L 25 L (34.0-46.0) % ABG Potassium (3.4-4.5) mmol/L ABG Ionized Calcium 4.3 L (4.5-5.3) mg/dL ABG Glucose 291 H 253 H (75-99) mg/dL ABG Lactic Acid 7.0 H* 5.9 H* (0.5-1.6) mmol/L Hemoglobin 7.6 L 8.2 L (11.4-16.0) gm/dL Chloride (98-107) mmol/L BUN (7-17) mg/dL Creatinine (0.52-1.04) mg/dL Glucose (74-99) mg/dL POC Glucose (mg/dL) (75-99) mg/dL Calcium (8.4-10.2) mg/dL Phosphorus (2.5-4.5) mg/dL Magnesium (1.6-2.3) mg/dL Total Bilirubin (0.2-1.3) mg/dL AST (14-36) U/L Alkaline Phosphatase (38-126) U/L Total Protein (6.3-8.2) g/dL Albumin (3.5-5.0) g/dL Arterial Blood Potassium (3.4-4.5) mmol/L Arterial Blood Glucose 291 H 253 H (75-99) mg/dL Crossmatch 03/19/19 03/19/19 03/19/19 Range/Units 19:00 19:09 20:01 WBC (3.8-10.6) k/uL RBC (3.80-5.40) m/uL Hgb (11.4-16.0) gm/dL Hct (34.0-46.0) % Plt Count (150-450) k/uL Neutrophils # (1.3-7.7) k/uL Lymphocytes # (1.0-4.8) k/uL Monocytes # (0-1.0) k/uL PT (9.0-12.0) sec INR (<1.2) ABG pH 7.48 H (7.35-7.45) ABG pCO2 (35-45) mmHg ABG pO2 (83-108) mmHg ABG HCO3 27 H (21-25) mmol/L ABG Total CO2 28 H (19-24) mmol/L ABG O2 Saturation 98.6 H (94-97) % ABG Hematocrit (34.0-46.0) % ABG Potassium (3.4-4.5) mmol/L ABG Ionized Calcium (4.5-5.3) mg/dL ABG Glucose (75-99) mg/dL ABG Lactic Acid (0.5-1.6) mmol/L Hemoglobin (11.4-16.0) gm/dL Chloride 109 H (98-107) mmol/L BUN 24 H (7-17) mg/dL Creatinine (0.52-1.04) mg/dL Glucose 206 H (74-99) mg/dL POC Glucose (mg/dL) 249 H (75-99) mg/dL Calcium 7.8 L (8.4-10.2) mg/dL Phosphorus (2.5-4.5) mg/dL Magnesium (1.6-2.3) mg/dL Total Bilirubin 1.5 H (0.2-1.3) mg/dL AST 53 H (14-36) U/L Alkaline Phosphatase <20 L (38-126) U/L Total Protein 3.3 L (6.3-8.2) g/dL Albumin 2.0 L (3.5-5.0) g/dL Arterial Blood Potassium (3.4-4.5) mmol/L Arterial Blood Glucose (75-99) mg/dL Crossmatch 03/19/19 03/19/19 03/19/19 Range/Units 20:20 21:10 22:06 WBC (3.8-10.6) k/uL RBC (3.80-5.40) m/uL Hgb (11.4-16.0) gm/dL Hct (34.0-46.0) % Plt Count (150-450) k/uL Neutrophils # (1.3-7.7) k/uL Lymphocytes # (1.0-4.8) k/uL Monocytes # (0-1.0) k/uL PT (9.0-12.0) sec INR (<1.2) ABG pH (7.35-7.45) ABG pCO2 (35-45) mmHg ABG pO2 (83-108) mmHg ABG HCO3 (21-25) mmol/L ABG Total CO2 (19-24) mmol/L ABG O2 Saturation (94-97) % ABG Hematocrit (34.0-46.0) % ABG Potassium (3.4-4.5) mmol/L ABG Ionized Calcium (4.5-5.3) mg/dL ABG Glucose (75-99) mg/dL ABG Lactic Acid (0.5-1.6) mmol/L Hemoglobin (11.4-16.0) gm/dL Chloride (98-107) mmol/L BUN (7-17) mg/dL Creatinine (0.52-1.04) mg/dL Glucose (74-99) mg/dL POC Glucose (mg/dL) 237 H 206 H 200 H (75-99) mg/dL Calcium (8.4-10.2) mg/dL Phosphorus (2.5-4.5) mg/dL Magnesium (1.6-2.3) mg/dL Total Bilirubin (0.2-1.3) mg/dL AST (14-36) U/L Alkaline Phosphatase (38-126) U/L Total Protein (6.3-8.2) g/dL Albumin (3.5-5.0) g/dL Arterial Blood Potassium (3.4-4.5) mmol/L Arterial Blood Glucose (75-99) mg/dL Crossmatch 03/19/19 03/19/19 03/19/19 Range/Units 22:15 22:15 22:15 WBC (3.8-10.6) k/uL RBC 2.88 L (3.80-5.40) m/uL Hgb 8.7 L (11.4-16.0) gm/dL Hct 25.1 L (34.0-46.0) % Plt Count 92 L (150-450) k/uL Neutrophils # (1.3-7.7) k/uL Lymphocytes # (1.0-4.8) k/uL Monocytes # (0-1.0) k/uL PT (9.0-12.0) sec INR 1.2 H (<1.2) ABG pH (7.35-7.45) ABG pCO2 (35-45) mmHg ABG pO2 (83-108) mmHg ABG HCO3 (21-25) mmol/L ABG Total CO2 (19-24) mmol/L ABG O2 Saturation (94-97) % ABG Hematocrit (34.0-46.0) % ABG Potassium (3.4-4.5) mmol/L ABG Ionized Calcium (4.5-5.3) mg/dL ABG Glucose (75-99) mg/dL ABG Lactic Acid (0.5-1.6) mmol/L Hemoglobin (11.4-16.0) gm/dL Chloride 108 H (98-107) mmol/L BUN 23 H (7-17) mg/dL Creatinine 1.09 H (0.52-1.04) mg/dL Glucose 175 H (74-99) mg/dL POC Glucose (mg/dL) (75-99) mg/dL Calcium 8.2 L (8.4-10.2) mg/dL Phosphorus (2.5-4.5) mg/dL Magnesium (1.6-2.3) mg/dL Total Bilirubin (0.2-1.3) mg/dL AST 73 H (14-36) U/L Alkaline Phosphatase 24 L (38-126) U/L Total Protein 3.9 L (6.3-8.2) g/dL Albumin 2.5 L (3.5-5.0) g/dL Arterial Blood Potassium (3.4-4.5) mmol/L Arterial Blood Glucose (75-99) mg/dL Crossmatch 03/19/19 03/19/19 03/20/19 Range/Units 23:04 23:59 01:17 WBC (3.8-10.6) k/uL RBC (3.80-5.40) m/uL Hgb (11.4-16.0) gm/dL Hct (34.0-46.0) % Plt Count (150-450) k/uL Neutrophils # (1.3-7.7) k/uL Lymphocytes # (1.0-4.8) k/uL Monocytes # (0-1.0) k/uL PT (9.0-12.0) sec INR (<1.2) ABG pH (7.35-7.45) ABG pCO2 (35-45) mmHg ABG pO2 (83-108) mmHg ABG HCO3 (21-25) mmol/L ABG Total CO2 (19-24) mmol/L ABG O2 Saturation (94-97) % ABG Hematocrit (34.0-46.0) % ABG Potassium (3.4-4.5) mmol/L ABG Ionized Calcium (4.5-5.3) mg/dL ABG Glucose (75-99) mg/dL ABG Lactic Acid (0.5-1.6) mmol/L Hemoglobin (11.4-16.0) gm/dL Chloride (98-107) mmol/L BUN (7-17) mg/dL Creatinine (0.52-1.04) mg/dL Glucose (74-99) mg/dL POC Glucose (mg/dL) 162 H 156 H 141 H (75-99) mg/dL Calcium (8.4-10.2) mg/dL Phosphorus (2.5-4.5) mg/dL Magnesium (1.6-2.3) mg/dL Total Bilirubin (0.2-1.3) mg/dL AST (14-36) U/L Alkaline Phosphatase (38-126) U/L Total Protein (6.3-8.2) g/dL Albumin (3.5-5.0) g/dL Arterial Blood Potassium (3.4-4.5) mmol/L Arterial Blood Glucose (75-99) mg/dL Crossmatch 03/20/19 03/20/19 03/20/19 Range/Units 02:20 03:01 04:05 WBC (3.8-10.6) k/uL RBC (3.80-5.40) m/uL Hgb (11.4-16.0) gm/dL Hct (34.0-46.0) % Plt Count (150-450) k/uL Neutrophils # (1.3-7.7) k/uL Lymphocytes # (1.0-4.8) k/uL Monocytes # (0-1.0) k/uL PT (9.0-12.0) sec INR (<1.2) ABG pH (7.35-7.45) ABG pCO2 (35-45) mmHg ABG pO2 (83-108) mmHg ABG HCO3 (21-25) mmol/L ABG Total CO2 (19-24) mmol/L ABG O2 Saturation (94-97) % ABG Hematocrit (34.0-46.0) % ABG Potassium (3.4-4.5) mmol/L ABG Ionized Calcium (4.5-5.3) mg/dL ABG Glucose (75-99) mg/dL ABG Lactic Acid (0.5-1.6) mmol/L Hemoglobin (11.4-16.0) gm/dL Chloride (98-107) mmol/L BUN (7-17) mg/dL Creatinine (0.52-1.04) mg/dL Glucose (74-99) mg/dL POC Glucose (mg/dL) 145 H 144 H 144 H (75-99) mg/dL Calcium (8.4-10.2) mg/dL Phosphorus (2.5-4.5) mg/dL Magnesium (1.6-2.3) mg/dL Total Bilirubin (0.2-1.3) mg/dL AST (14-36) U/L Alkaline Phosphatase (38-126) U/L Total Protein (6.3-8.2) g/dL Albumin (3.5-5.0) g/dL Arterial Blood Potassium (3.4-4.5) mmol/L Arterial Blood Glucose (75-99) mg/dL Crossmatch 03/20/19 03/20/19 03/20/19 Range/Units 04:45 04:45 04:45 WBC (3.8-10.6) k/uL RBC 2.76 L (3.80-5.40) m/uL Hgb 8.2 L (11.4-16.0) gm/dL Hct 23.8 L (34.0-46.0) % Plt Count 93 L (150-450) k/uL Neutrophils # 8.7 H (1.3-7.7) k/uL Lymphocytes # 0.8 L (1.0-4.8) k/uL Monocytes # (0-1.0) k/uL PT 12.1 H (9.0-12.0) sec INR 1.2 H (<1.2) ABG pH (7.35-7.45) ABG pCO2 (35-45) mmHg ABG pO2 (83-108) mmHg ABG HCO3 (21-25) mmol/L ABG Total CO2 (19-24) mmol/L ABG O2 Saturation (94-97) % ABG Hematocrit (34.0-46.0) % ABG Potassium (3.4-4.5) mmol/L ABG Ionized Calcium (4.5-5.3) mg/dL ABG Glucose (75-99) mg/dL ABG Lactic Acid (0.5-1.6) mmol/L Hemoglobin (11.4-16.0) gm/dL Chloride 109 H (98-107) mmol/L BUN 24 H (7-17) mg/dL Creatinine 1.16 H (0.52-1.04) mg/dL Glucose 134 H (74-99) mg/dL POC Glucose (mg/dL) (75-99) mg/dL Calcium 8.3 L (8.4-10.2) mg/dL Phosphorus 2.2 L (2.5-4.5) mg/dL Magnesium (1.6-2.3) mg/dL Total Bilirubin (0.2-1.3) mg/dL AST 84 H (14-36) U/L Alkaline Phosphatase 26 L (38-126) U/L Total Protein 4.0 L (6.3-8.2) g/dL Albumin 2.7 L (3.5-5.0) g/dL Arterial Blood Potassium (3.4-4.5) mmol/L Arterial Blood Glucose (75-99) mg/dL Crossmatch 03/20/19 03/20/19 03/20/19 Range/Units 04:47 05:02 07:14 WBC (3.8-10.6) k/uL RBC (3.80-5.40) m/uL Hgb (11.4-16.0) gm/dL Hct (34.0-46.0) % Plt Count (150-450) k/uL Neutrophils # (1.3-7.7) k/uL Lymphocytes # (1.0-4.8) k/uL Monocytes # (0-1.0) k/uL PT (9.0-12.0) sec INR (<1.2) ABG pH 7.48 H (7.35-7.45) ABG pCO2 (35-45) mmHg ABG pO2 (83-108) mmHg ABG HCO3 28 H (21-25) mmol/L ABG Total CO2 29 H (19-24) mmol/L ABG O2 Saturation 98.1 H (94-97) % ABG Hematocrit (34.0-46.0) % ABG Potassium (3.4-4.5) mmol/L ABG Ionized Calcium (4.5-5.3) mg/dL ABG Glucose (75-99) mg/dL ABG Lactic Acid (0.5-1.6) mmol/L Hemoglobin (11.4-16.0) gm/dL Chloride (98-107) mmol/L BUN (7-17) mg/dL Creatinine (0.52-1.04) mg/dL Glucose (74-99) mg/dL POC Glucose (mg/dL) 140 H 120 H (75-99) mg/dL Calcium (8.4-10.2) mg/dL Phosphorus (2.5-4.5) mg/dL Magnesium (1.6-2.3) mg/dL Total Bilirubin (0.2-1.3) mg/dL AST (14-36) U/L Alkaline Phosphatase (38-126) U/L Total Protein (6.3-8.2) g/dL Albumin (3.5-5.0) g/dL Arterial Blood Potassium (3.4-4.5) mmol/L Arterial Blood Glucose (75-99) mg/dL Crossmatch 03/20/19 03/20/19 03/20/19 Range/Units 08:17 08:24 09:16 WBC (3.8-10.6) k/uL RBC (3.80-5.40) m/uL Hgb (11.4-16.0) gm/dL Hct (34.0-46.0) % Plt Count (150-450) k/uL Neutrophils # (1.3-7.7) k/uL Lymphocytes # (1.0-4.8) k/uL Monocytes # (0-1.0) k/uL PT (9.0-12.0) sec INR (<1.2) ABG pH 7.47 H (7.35-7.45) ABG pCO2 (35-45) mmHg ABG pO2 76 L (83-108) mmHg ABG HCO3 28 H (21-25) mmol/L ABG Total CO2 30 H (19-24) mmol/L ABG O2 Saturation (94-97) % ABG Hematocrit (34.0-46.0) % ABG Potassium (3.4-4.5) mmol/L ABG Ionized Calcium (4.5-5.3) mg/dL ABG Glucose (75-99) mg/dL ABG Lactic Acid (0.5-1.6) mmol/L Hemoglobin (11.4-16.0) gm/dL Chloride (98-107) mmol/L BUN (7-17) mg/dL Creatinine (0.52-1.04) mg/dL Glucose (74-99) mg/dL POC Glucose (mg/dL) 126 H 116 H (75-99) mg/dL Calcium (8.4-10.2) mg/dL Phosphorus (2.5-4.5) mg/dL Magnesium (1.6-2.3) mg/dL Total Bilirubin (0.2-1.3) mg/dL AST (14-36) U/L Alkaline Phosphatase (38-126) U/L Total Protein (6.3-8.2) g/dL Albumin (3.5-5.0) g/dL Arterial Blood Potassium (3.4-4.5) mmol/L Arterial Blood Glucose (75-99) mg/dL Crossmatch - Imaging and Cardiology Chest x-ray: report reviewed, image reviewed Assessment and Plan Assessment: 1. Aortic valve stenosis, with severe aortic valve regurgitation, status post aortic valve replacement 2. Moderate to severe mitral valve regurgitation, status post mitral valve repair 3. Single-vessel coronary artery disease, status post coronary artery bypass grafting surgery 1 vessel 4. Decreased LV function with preoperative ejection fraction of 30% 5. Hypertension 6. Hyperlipidemia 7. Hypothyroid 8. Non-critical carotid stenosis with a 50-70% right ICA stenosis 9. Acute postoperative bleeding, an unexpected outcome 10. Postoperative Hypotension, an unexpected outcome Plan: 1. Continue to maximize medical therapy with aspirin, statin, Plavix and beta hreiberto. We will increase her beta heriberto as tolerated. 2. Transfuse 1 unit of PRBCs for a hemoglobin of 8.2. 3. Remove intra-aortic balloon pump this a.m., Once the balloon pump has been removed maintaining manual pressure for 30 minutes, and place them stop in place as directed for 6 hours. 4. Obtain a limited 2-D echocardiogram to assess LV function and cardiac tamponade. 5. Wean norepinephrine as tolerated. 6. Decrease Primacor drip once the intra-aortic balloon pump has been removed to 0.1 mcg/kg/m. 7. Decrease her assist control on her mechanical ventilator to 18 and decrease her PEEP to 5. 8. Bronchodilators and mechanical ventilator management per pulmonary medicine. Once the FemoStop has been removed May continue with ventilator weaning to extubate. 9. Monitor daily labs and chest x-rays. Replace electrolytes per protocol. 10. Discontinue nitroglycerin drip. 11. Keep atrial and ventricular epicardial pacemaker wires in place and connected to backup pacemaker generator on a VVI backup of 50. 12. GI and DVT prophylaxis. 13. Send HIT panel. 14. Keep Lovett catheter, [place]-Rissa catheter, right radial arterial line and mediastinal and left pleural chest tubes in place today. 15. More recommendations to follow based on patient's clinical course. Intra-aortic balloon pump removal was completed at 9:30 AM today. The right groin was examined. There is no evidence of hematoma. The balloon pu mp was turned off. The pre-existing sheath and balloon were removed en masseand the right femoral artery was allowed to bleed both anterograde and retrograde for several beats. Direct pressure was held over this site for 30 minutes. There is no residual bleeding or hematoma noted. The groin itself was soft. A FemoStop was placed. The right lower extremity appears warm and well-perfused with Doppler pulses present. There is no immediate removal complications. She remained hemodynamically stable with a good follow-up cardiac index of 3.5. Time with Patient: Greater than 30
[2019-03-20] MEDS: MAGNESIUM SULFATE-D5W PMX 1 GM in DEXTROSE/WATER 1 100ML.BAG IVPB SCH ×2 (12:33→13:49)
[2019-03-20 13:05] LABS: Glucose,Whole Blood 120 mg/dL (75-99)
[2019-03-20] MEDS ORDERED: LEVOTHYROXINE IVP 100 MCG/5 ML VIAL IV SCH (13:30)
[2019-03-20 13:40] LABS: Glucose,Whole Blood 139 mg/dL (75-99)
[2019-03-20] MEDS: CLEVIDIPINE BUTYRATE 25 MG in EMPTY BAG 1 BAG IV SCH (15:14)
--- NOTE | 2019-03-20 15:36 | P.CONS ---
History of Present Illness - Reason for Consult Consult date: 03/20/19 Medical management hypothyroidism, osteoarthritis, former smoker Requesting physician: Lloyd Cabrera - Chief Complaint Severe aortic stenosis, regurgitation, moderate to severe mitral regurgitat - History of Present Illness This is a 79-year-old female status post CABG X1, aortic valve replacement with bioprosthetic valve, mitral valve repair in a patient with severe aortic valve stenosis, moderate to severe mitral valve regurgitation, CAD, ischemic cardiomyopathy-preop EF 30%, pulmonary hypertension, hypertension, hypothyroidism and multiple other medical issues. Shortly after returning to ICU postop, she developed increased chest tube ouput of 1.3 L over 1-1/2 hours, returned to the OR and required emergent reexploration of the chest with evacuation of clots, control bleeding, placement of IABP. Mediastinal and left pleural chest tube drainage improved. This morning IABP weaned to 1:3 with plans for discontinuing this morning. Continuies on DIprovan, Levophed, Primacor and insulin drips. Cardiac output 7.4, cardiac index 3.4. Maintained on mechanical ventilation with FiO2 40%/+5 of PEEP. Chest x-ray reporting bilateral consolidation and pleural effusion. Telemetry accelerated junctional. Review of Systems Review systems unable to obtain as patient sedated and on mechanical ventilation. Past Medical History Past Medical History: Coronary Artery Disease (CAD), Eye Disorder, GERD/Reflux, Hyperlipidemia, Hypertension, Osteoarthritis (OA), Thyroid Disorder Additional Past Medical History / Comment(s): Increased SOB w/ activity,Aortic valve stenosis/regurgitation,mitral valve regurgitation,bruised left great toe,Hx GLAUCOMA History of Any Multi-Drug Resistant Organisms: None Reported Past Surgical History: Heart Catheterization, Joint Replacement, Orthopedic Surgery Additional Past Surgical History / Comment(s): BILATERAL CATARACT EYE SURGERY WITH IMPLANTS , LEFT SHOULDER SURGERY, RIGHT TOTAL KNEE, FATTY CYST REMOVED FROM BACK, RIGHT ANKLE SURGERY, HARDWARE REMOVED RIGHT ANKLE ,laser olga lidia eyes tx glaucoma,CHAITANYA Past Anesthesia/Blood Transfusion Reactions: No Reported Reaction Additional Past Anesthesia/Blood Transfusion Reaction / Comm: no hx blood transfusion Smoking Status: Former smoker - Past Family History Mother Family Medical History: No Reported History Medications and Allergies Home Medications Medication Instructions Recorded Confirmed Type Aspirin [Adult Low Dose Aspirin EC] 81 mg PO DAILY 01/28/17 03/19/19 History Levothyroxine Sodium [Synthroid] 50 mcg PO QAM 01/28/17 03/19/19 History Metoprolol Succinate [Toprol XL] 25 mg PO HS 01/28/17 03/19/19 History Multivit-Min/Iron/Folic/Lutein 1 tab PO DAILY 01/28/17 03/19/19 History [Centrum Silver Women Tablet] Simvastatin [Zocor] 20 mg PO HS 01/28/17 03/19/19 History amLODIPine BESYLATE/BENAZEPRIL 1 cap PO DAILY 01/28/17 03/19/19 History [Lotrel 5-40 mg Capsule] Acetaminophen Tab [Tylenol Tab] 650 mg PO Q4H PRN 02/01/19 03/19/19 History Penicillin V Potassium [Pen Vee K] 500 mg PO QID 03/14/19 03/19/19 History Cholecalciferol [Vitamin D3 (25 1,000 unit PO DAILY 03/19/19 03/19/19 History Mcg = 1000 Iu)] Allergies Allergy/AdvReac Type Severity Reaction Status Date / Time oats AdvReac abdominal Verified 03/19/19 07:57 bloating/gas discomfort Physical Exam Vitals: Vital Signs Temp Pulse Resp BP Pulse Ox 03/20/19 13:00 98.8 F 78 19 98 03/20/19 12:45 75 18 99 03/20/19 12:30 78 18 100 03/20/19 12:15 77 18 100 03/20/19 12:00 99.0 F 79 20 100 03/20/19 11:46 78 03/20/19 11:45 78 10 L 100 03/20/19 11:32 80 03/20/19 11:30 80 20 98 03/20/19 11:15 80 19 98 03/20/19 11:00 84 19 98 03/20/19 10:50 99.3 F 84 14 143/56 03/20/19 10:45 78 18 98 03/20/19 10:30 80 21 98 03/20/19 10:15 84 19 98 03/20/19 10:00 99.5 F 86 20 97 03/20/19 09:45 87 19 98 03/20/19 09:30 86 19 99 03/20/19 09:15 89 18 96 03/20/19 09:00 87 22 95 03/20/19 08:45 88 22 94 L 03/20/19 08:42 99.5 F 88 18 111/47 03/20/19 08:30 86 22 97 03/20/19 08:15 99.5 F 87 20 111/45 97 03/20/19 08:00 89 21 115/62 97 03/20/19 07:45 88 21 97 03/20/19 07:34 82 03/20/19 07:30 99.5 F 87 18 98 03/20/19 07:18 88 03/20/19 07:00 89 22 95 03/20/19 06:30 89 22 98 03/20/19 06:00 87 22 99 03/20/19 05:30 88 22 99 03/20/19 05:00 88 22 97 03/20/19 04:30 87 22 97 03/20/19 04:00 87 22 98 03/20/19 03:30 84 22 98 03/20/19 03:27 83 03/20/19 03:17 85 03/20/19 03:00 85 22 100 03/20/19 02:30 82 22 100 03/20/19 02:00 84 22 100 03/20/19 01:30 84 22 100 03/20/19 01:00 80 22 100 03/20/19 00:30 79 22 100 03/20/19 00:01 98.8 F 73 22 100 03/19/19 23:30 74 23 100 03/19/19 23:29 90 03/19/19 23:20 97 03/19/19 23:00 97 22 100 03/19/19 22:45 98 22 100 03/19/19 22:30 98 22 100 03/19/19 22:15 98 22 100 03/19/19 22:00 79 22 100 03/19/19 21:45 71 22 100 03/19/19 21:30 68 23 100 03/19/19 21:15 85 22 99 03/19/19 21:00 88 22 99 03/19/19 20:45 86 22 100 03/19/19 20:30 84 22 100 03/19/19 20:15 81 22 100 03/19/19 20:00 81 22 115/62 100 03/19/19 19:45 80 22 100 03/19/19 19:30 76 22 100 03/19/19 19:15 94.8 F L 73 22 100 03/19/19 17:08 99.5 F 88 18 116/45 03/19/19 17:07 98.6 F 88 22 110/47 94 L 03/19/19 16:00 80 22 67/48 100 03/19/19 15:57 95.9 F L 80 22 69/40 100 03/19/19 15:54 80 03/19/19 15:49 80 03/19/19 15:48 96.1 F L 80 22 89/47 100 03/19/19 15:30 80 22 96/54 100 03/19/19 15:22 95.7 F L 80 22 104/50 100 03/19/19 15:13 95.5 F L 80 12 89/46 100 03/19/19 15:11 95.5 F L 80 12 96/50 100 03/19/19 15:00 80 22 82/46 100 03/19/19 14:30 70 12 99 Intake and Output 03/19/19 03/20/19 03/20/19 22:59 06:59 14:59 Intake Total 5760.556 0599.381 3153.863 Output Total 5540 886 715 Balance 220.556 722.795 844.863 Intake: IV 3401 831.5 1013 Albumin Human 5% 250 ml 250 250 In Empty Bag 1 bag @ 250 mls/hr IVPB Q1HR PRN Rx#: [id number] CO/CI 200 120 150 Lactated Ringers 3200 400 350 Magnesium Sulfate-D5w Pmx 100 1 gm In Dextrose/Water 1 100ml.bag @ 100 mls/hr IVPB Q1H [facility] Rx#: [id number] Nitroglycerin-D5w Pmx 50 7.5 mg In Dextrose/Water 1 250ml.bag @ Per Protocol IV ONCE ONE Rx#:[id number] Sodium Phosphate 10 mmol 100 In Sodium Chloride 0.9% 100 ml @ 50 mls/hr IVPB ONCE ONE Rx#:[id number] pressure bags 54 63 Intake, IV Titration 52.556 732.295 236.863 Amount Insulin Regular 100 unit 5.959 22.573 34.896 In Sodium Chloride 0.9% 100 ml @ Per Protocol IV .Q0M [facility] Rx#:[id number] Milrinone-D5w Pmx 20 mg 95.472 In Dextrose/Water 1 100ml .bag @ Per Protocol IV . Q0M [facility] Rx#:[id number] Norepinephrine 32 mg In 6.495 Sodium Chloride 0.9% 218 ml @ 0.05 MCG/KG/MIN 2. 745 mls/hr IV .Q24H [facility] Rx#:[id number] Norepinephrine 4 mg In 41.605 613.730 Sodium Chloride 0.9% 250 ml @ 0.02 MCG/KG/MIN 7. 925 mls/hr IV .Q24H [facility] Rx#:[id number] Propofol 1,000 mg In 4.992 95.992 100.000 Empty Bag 1 bag @ Titrate IV .Q0M [facility] Rx#: [id number] Blood Product 2307 310 Ffp 24 Cp2d Unit 336 [id number] Platelet Irr Pheresis 2 301 Acda Unit [id number] Pooled Cryoprecipitate 120 Unit [id number] Rc As-1 Unit 310 [id number] Rc As-1 Unit 310 [id number] Rc As-1 Unit 310 [id number] Rc As-1 Unit 310 [id number] Rc As-1 Unit 310 [id number] Rc As-3 Unit 310 [id number] Other 45 Output: Chest Tube Drainage 2890 406 430 Left Pleural 150 96 220 Mediastinal 490 310 210 Mediastinal/Left Pleural 2250 Gastric Drainage 100 Urine 650 380 285 Estimated Blood Loss 1999 Other: Voiding Method Indwelling Catheter Indwelling Catheter Indwelling Catheter Weight 117.1 kg ABP, PAP, CO, CI - Last 8 Hours Arterial Blood Pressure 107/47 Arterial Blood Pressure 100/44 Arterial Blood Pressure 108/47 Arterial Blood Pressure 112/49 Arterial Blood Pressure 111/47 Arterial Blood Pressure 116/51 Arterial Blood Pressure 133/54 Arterial Blood Pressure 118/51 Arterial Blood Pressure 143/56 Arterial Blood Pressure 90/43 Arterial Blood Pressure 100/46 Arterial Blood Pressure 116/49 Arterial Blood Pressure 124/51 Arterial Blood Pressure 120/51 Arterial Blood Pressure 115/42 Arterial Blood Pressure 112/48 Arterial Blood Pressure 105/44 Arterial Blood Pressure 111/45 Arterial Blood Pressure 95/51 Arterial Blood Pressure 121/55 Arterial Blood Pressure 109/51 Arterial Blood Pressure 114/51 Arterial Blood Pressure 111/51 Arterial Blood Pressure 126/52 Arterial Blood Pressure 108/49 Pulmonary Artery Pressure 34/23 Pulmonary Artery Pressure 37/19 Pulmonary Artery Pressure 33/22 Pulmonary Artery Pressure 36/21 Pulmonary Artery Pressure 40/23 Pulmonary Artery Pressure 48/27 Pulmonary Artery Pressure 43/25 Pulmonary Artery Pressure 41/26 Pulmonary Artery Pressure 48/22 Pulmonary Artery Pressure 36/22 Pulmonary Artery Pressure 35/22 Pulmonary Artery Pressure 46/23 Pulmonary Artery Pressure 45/23 Pulmonary Artery Pressure 43/23 Pulmonary Artery Pressure 43/23 Pulmonary Artery Pressure 44/26 Pulmonary Artery Pressure 38/26 Pulmonary Artery Pressure 40/27 Pulmonary Artery Pressure 44/25 Pulmonary Artery Pressure 47/26 Pulmonary Artery Pressure 47/25 Pulmonary Artery Pressure 48/25 Pulmonary Artery Pressure 48/24 Pulmonary Artery Pressure 44/27 Pulmonary Artery Pressure 44/26 Cardiac Output 6.0 Cardiac Output 5.3 Cardiac Output 7.7 Cardiac Output 7.1 Cardiac Output 7 Cardiac Output 5.9 Cardiac Output 5.9 Cardiac Index 2.7 Cardiac Index 2.4 Cardiac Index 3.5 Cardiac Index 3.2 Cardiac Index 3.2 Cardiac Index 2.7 Cardiac Index 2.7 PHYSICAL EXAM: VITAL SIGNS: As above GENERAL: Lying in bed, sedated and on mechanical ventilation. HEENT: Conjunctivae normal. eyes normal.OG tube present. NECK: No JVD. No thyroid enlargement. No LNs CARDIOVASCULAR: S1, S2 regular. No murmur. Connected to a backup pacemaker, IABP. RESPIRATION: Breath sounds diminished in the bases. No rhonchi or crackles. No wheezing. Mediastinal and left pleural chest tubes present, draining serosanguineous, ABDOMEN: Soft, nontender . No guarding. No hepatosplenomegaly. no masses palpable. Hypoactive Bowel sounds. LEGS: No edema. no swelling, positive peripheral pulses PSYCHIATRY: Unable to assess NERVOUS SYSTEM: Unable To assess, sedated on DIprovan and on mechanical ventilation. Skin: no lesions, no rash. No clubbing, no cyanosis Results CBC & Chem 7: 03/20/19 04:45 03/20/19 04:45 Labs: Abnormal Lab Results - Last 24 Hours (Table) 03/13/19 03/19/19 03/19/19 Range/Units 09:00 14:30 14:30 WBC 10.9 H (3.8-10.6) k/uL RBC 2.35 L (3.80-5.40) m/uL Hgb 7.2 L D (11.4-16.0) gm/dL Hct 21.3 L (34.0-46.0) % Plt Count 119 L (150-450) k/uL Neutrophils # 9.1 H (1.3-7.7) k/uL Lymphocytes # (1.0-4.8) k/uL Monocytes # (0-1.0) k/uL PT (9.0-12.0) sec INR (<1.2) ABG pH (7.35-7.45) ABG pCO2 (35-45) mmHg ABG pO2 (83-108) mmHg ABG HCO3 (21-25) mmol/L ABG Total CO2 (19-24) mmol/L ABG O2 Saturation (94-97) % ABG Hematocrit (34.0-46.0) % ABG Ionized Calcium (4.5-5.3) mg/dL ABG Glucose (75-99) mg/dL ABG Lactic Acid (0.5-1.6) mmol/L Hemoglobin (11.4-16.0) gm/dL Chloride 108 H (98-107) mmol/L BUN 27 H (7-17) mg/dL Creatinine 1.23 H (0.52-1.04) mg/dL Glucose 157 H (74-99) mg/dL POC Glucose (mg/dL) (75-99) mg/dL Calcium (8.4-10.2) mg/dL Phosphorus (2.5-4.5) mg/dL Magnesium 2.5 H (1.6-2.3) mg/dL Total Bilirubin (0.2-1.3) mg/dL AST 39 H (14-36) U/L Alkaline Phosphatase 35 L (38-126) U/L Total Protein 4.3 L (6.3-8.2) g/dL Albumin 2.7 L (3.5-5.0) g/dL Arterial Blood Glucose (75-99) mg/dL Crossmatch See Detail 03/19/19 03/19/19 03/19/19 Range/Units 14:30 14:38 15:04 WBC (3.8-10.6) k/uL RBC (3.80-5.40) m/uL Hgb (11.4-16.0) gm/dL Hct (34.0-46.0) % Plt Count (150-450) k/uL Neutrophils # (1.3-7.7) k/uL Lymphocytes # (1.0-4.8) k/uL Monocytes # (0-1.0) k/uL PT 12.2 H (9.0-12.0) sec INR 1.2 H (<1.2) ABG pH 7.29 L (7.35-7.45) ABG pCO2 50 H (35-45) mmHg ABG pO2 289 H (83-108) mmHg ABG HCO3 (21-25) mmol/L ABG Total CO2 26 H (19-24) mmol/L ABG O2 Saturation 99.8 H (94-97) % ABG Hematocrit (34.0-46.0) % ABG Ionized Calcium (4.5-5.3) mg/dL ABG Glucose (75-99) mg/dL ABG Lactic Acid (0.5-1.6) mmol/L Hemoglobin (11.4-16.0) gm/dL Chloride (98-107) mmol/L BUN (7-17) mg/dL Creatinine (0.52-1.04) mg/dL Glucose (74-99) mg/dL POC Glucose (mg/dL) 180 H (75-99) mg/dL Calcium (8.4-10.2) mg/dL Phosphorus (2.5-4.5) mg/dL Magnesium (1.6-2.3) mg/dL Total Bilirubin (0.2-1.3) mg/dL AST (14-36) U/L Alkaline Phosphatase (38-126) U/L Total Protein (6.3-8.2) g/dL Albumin (3.5-5.0) g/dL Arterial Blood Glucose (75-99) mg/dL Crossmatch 03/19/19 03/19/19 03/19/19 Range/Units 15:42 16:25 17:03 WBC (3.8-10.6) k/uL RBC (3.80-5.40) m/uL Hgb (11.4-16.0) gm/dL Hct (34.0-46.0) % Plt Count (150-450) k/uL Neutrophils # (1.3-7.7) k/uL Lymphocytes # (1.0-4.8) k/uL Monocytes # (0-1.0) k/uL PT (9.0-12.0) sec INR (<1.2) ABG pH 7.16 L* 7.22 L (7.35-7.45) ABG pCO2 55 H 48 H (35-45) mmHg ABG pO2 151 H 74 L 198 H (83-108) mmHg ABG HCO3 20 L 19 L (21-25) mmol/L ABG Total CO2 (19-24) mmol/L ABG O2 Saturation 99.3 H 93.4 L 99.9 H (94-97) % ABG Hematocrit 19 L* 23 L (34.0-46.0) % ABG Ionized Calcium 4.4 L (4.5-5.3) mg/dL ABG Glucose 231 H 316 H (75-99) mg/dL ABG Lactic Acid 5.1 H* 7.2 H* (0.5-1.6) mmol/L Hemoglobin 6.1 L* 7.4 L (11.4-16.0) gm/dL Chloride (98-107) mmol/L BUN (7-17) mg/dL Creatinine (0.52-1.04) mg/dL Glucose (74-99) mg/dL POC Glucose (mg/dL) (75-99) mg/dL Calcium (8.4-10.2) mg/dL Phosphorus (2.5-4.5) mg/dL Magnesium (1.6-2.3) mg/dL Total Bilirubin (0.2-1.3) mg/dL AST (14-36) U/L Alkaline Phosphatase (38-126) U/L Total Protein (6.3-8.2) g/dL Albumin (3.5-5.0) g/dL Arterial Blood Glucose 231 H 316 H (75-99) mg/dL Crossmatch 03/19/19 03/19/19 03/19/19 Range/Units 17:25 18:07 19:00 WBC (3.8-10.6) k/uL RBC 2.62 L (3.80-5.40) m/uL Hgb 7.6 L (11.4-16.0) gm/dL Hct 23.7 L (34.0-46.0) % Plt Count 73 L (150-450) k/uL Neutrophils # 8.9 H (1.3-7.7) k/uL Lymphocytes # 0.3 L (1.0-4.8) k/uL Monocytes # 1.2 H (0-1.0) k/uL PT (9.0-12.0) sec INR (<1.2) ABG pH 7.33 L (7.35-7.45) ABG pCO2 (35-45) mmHg ABG pO2 209 H (83-108) mmHg ABG HCO3 (21-25) mmol/L ABG Total CO2 26 H (19-24) mmol/L ABG O2 Saturation 100.0 H 99.0 H (94-97) % ABG Hematocrit 23 L 25 L (34.0-46.0) % ABG Ionized Calcium 4.3 L (4.5-5.3) mg/dL ABG Glucose 291 H 253 H (75-99) mg/dL ABG Lactic Acid 7.0 H* 5.9 H* (0.5-1.6) mmol/L Hemoglobin 7.6 L 8.2 L (11.4-16.0) gm/dL Chloride (98-107) mmol/L BUN (7-17) mg/dL Creatinine (0.52-1.04) mg/dL Glucose (74-99) mg/dL POC Glucose (mg/dL) (75-99) mg/dL Calcium (8.4-10.2) mg/dL Phosphorus (2.5-4.5) mg/dL Magnesium (1.6-2.3) mg/dL Total Bilirubin (0.2-1.3) mg/dL AST (14-36) U/L Alkaline Phosphatase (38-126) U/L Total Protein (6.3-8.2) g/dL Albumin (3.5-5.0) g/dL Arterial Blood Glucose 291 H 253 H (75-99) mg/dL Crossmatch 03/19/19 03/19/19 03/19/19 Range/Units 19:00 19:09 20:01 WBC (3.8-10.6) k/uL RBC (3.80-5.40) m/uL Hgb (11.4-16.0) gm/dL Hct (34.0-46.0) % Plt Count (150-450) k/uL Neutrophils # (1.3-7.7) k/uL Lymphocytes # (1.0-4.8) k/uL Monocytes # (0-1.0) k/uL PT (9.0-12.0) sec INR (<1.2) ABG pH 7.48 H (7.35-7.45) ABG pCO2 (35-45) mmHg ABG pO2 (83-108) mmHg ABG HCO3 27 H (21-25) mmol/L ABG Total CO2 28 H (19-24) mmol/L ABG O2 Saturation 98.6 H (94-97) % ABG Hematocrit (34.0-46.0) % ABG Ionized Calcium (4.5-5.3) mg/dL ABG Glucose (75-99) mg/dL ABG Lactic Acid (0.5-1.6) mmol/L Hemoglobin (11.4-16.0) gm/dL Chloride 109 H (98-107) mmol/L BUN 24 H (7-17) mg/dL Creatinine (0.52-1.04) mg/dL Glucose 206 H (74-99) mg/dL POC Glucose (mg/dL) 249 H (75-99) mg/dL Calcium 7.8 L (8.4-10.2) mg/dL Phosphorus (2.5-4.5) mg/dL Magnesium (1.6-2.3) mg/dL Total Bilirubin 1.5 H (0.2-1.3) mg/dL AST 53 H (14-36) U/L Alkaline Phosphatase <20 L (38-126) U/L Total Protein 3.3 L (6.3-8.2) g/dL Albumin 2.0 L (3.5-5.0) g/dL Arterial Blood Glucose (75-99) mg/dL Crossmatch 03/19/19 03/19/19 03/19/19 Range/Units 20:20 21:10 22:06 WBC (3.8-10.6) k/uL RBC (3.80-5.40) m/uL Hgb (11.4-16.0) gm/dL Hct (34.0-46.0) % Plt Count (150-450) k/uL Neutrophils # (1.3-7.7) k/uL Lymphocytes # (1.0-4.8) k/uL Monocytes # (0-1.0) k/uL PT (9.0-12.0) sec INR (<1.2) ABG pH (7.35-7.45) ABG pCO2 (35-45) mmHg ABG pO2 (83-108) mmHg ABG HCO3 (21-25) mmol/L ABG Total CO2 (19-24) mmol/L ABG O2 Saturation (94-97) % ABG Hematocrit (34.0-46.0) % ABG Ionized Calcium (4.5-5.3) mg/dL ABG Glucose (75-99) mg/dL ABG Lactic Acid (0.5-1.6) mmol/L Hemoglobin (11.4-16.0) gm/dL Chloride (98-107) mmol/L BUN (7-17) mg/dL Creatinine (0.52-1.04) mg/dL Glucose (74-99) mg/dL POC Glucose (mg/dL) 237 H 206 H 200 H (75-99) mg/dL Calcium (8.4-10.2) mg/dL Phosphorus (2.5-4.5) mg/dL Magnesium (1.6-2.3) mg/dL Total Bilirubin (0.2-1.3) mg/dL AST (14-36) U/L Alkaline Phosphatase (38-126) U/L Total Protein (6.3-8.2) g/dL Albumin (3.5-5.0) g/dL Arterial Blood Glucose (75-99) mg/dL Crossmatch 03/19/19 03/19/19 03/19/19 Range/Units 22:15 22:15 22:15 WBC (3.8-10.6) k/uL RBC 2.88 L (3.80-5.40) m/uL Hgb 8.7 L (11.4-16.0) gm/dL Hct 25.1 L (34.0-46.0) % Plt Count 92 L (150-450) k/uL Neutrophils # (1.3-7.7) k/uL Lymphocytes # (1.0-4.8) k/uL Monocytes # (0-1.0) k/uL PT (9.0-12.0) sec INR 1.2 H (<1.2) ABG pH (7.35-7.45) ABG pCO2 (35-45) mmHg ABG pO2 (83-108) mmHg ABG HCO3 (21-25) mmol/L ABG Total CO2 (19-24) mmol/L ABG O2 Saturation (94-97) % ABG Hematocrit (34.0-46.0) % ABG Ionized Calcium (4.5-5.3) mg/dL ABG Glucose (75-99) mg/dL ABG Lactic Acid (0.5-1.6) mmol/L Hemoglobin (11.4-16.0) gm/dL Chloride 108 H (98-107) mmol/L BUN 23 H (7-17) mg/dL Creatinine 1.09 H (0.52-1.04) mg/dL Glucose 175 H (74-99) mg/dL POC Glucose (mg/dL) (75-99) mg/dL Calcium 8.2 L (8.4-10.2) mg/dL Phosphorus (2.5-4.5) mg/dL Magnesium (1.6-2.3) mg/dL Total Bilirubin (0.2-1.3) mg/dL AST 73 H (14-36) U/L Alkaline Phosphatase 24 L (38-126) U/L Total Protein 3.9 L (6.3-8.2) g/dL Albumin 2.5 L (3.5-5.0) g/dL Arterial Blood Glucose (75-99) mg/dL Crossmatch 03/19/19 03/19/19 03/20/19 Range/Units 23:04 23:59 01:17 WBC (3.8-10.6) k/uL RBC (3.80-5.40) m/uL Hgb (11.4-16.0) gm/dL Hct (34.0-46.0) % Plt Count (150-450) k/uL Neutrophils # (1.3-7.7) k/uL Lymphocytes # (1.0-4.8) k/uL Monocytes # (0-1.0) k/uL PT (9.0-12.0) sec INR (<1.2) ABG pH (7.35-7.45) ABG pCO2 (35-45) mmHg ABG pO2 (83-108) mmHg ABG HCO3 (21-25) mmol/L ABG Total CO2 (19-24) mmol/L ABG O2 Saturation (94-97) % ABG Hematocrit (34.0-46.0) % ABG Ionized Calcium (4.5-5.3) mg/dL ABG Glucose (75-99) mg/dL ABG Lactic Acid (0.5-1.6) mmol/L Hemoglobin (11.4-16.0) gm/dL Chloride (98-107) mmol/L BUN (7-17) mg/dL Creatinine (0.52-1.04) mg/dL Glucose (74-99) mg/dL POC Glucose (mg/dL) 162 H 156 H 141 H (75-99) mg/dL Calcium (8.4-10.2) mg/dL Phosphorus (2.5-4.5) mg/dL Magnesium (1.6-2.3) mg/dL Total Bilirubin (0.2-1.3) mg/dL AST (14-36) U/L Alkaline Phosphatase (38-126) U/L Total Protein (6.3-8.2) g/dL Albumin (3.5-5.0) g/dL Arterial Blood Glucose (75-99) mg/dL Crossmatch 03/20/19 03/20/19 03/20/19 Range/Units 02:20 03:01 04:05 WBC (3.8-10.6) k/uL RBC (3.80-5.40) m/uL Hgb (11.4-16.0) gm/dL Hct (34.0-46.0) % Plt Count (150-450) k/uL Neutrophils # (1.3-7.7) k/uL Lymphocytes # (1.0-4.8) k/uL Monocytes # (0-1.0) k/uL PT (9.0-12.0) sec INR (<1.2) ABG pH (7.35-7.45) ABG pCO2 (35-45) mmHg ABG pO2 (83-108) mmHg ABG HCO3 (21-25) mmol/L ABG Total CO2 (19-24) mmol/L ABG O2 Saturation (94-97) % ABG Hematocrit (34.0-46.0) % ABG Ionized Calcium (4.5-5.3) mg/dL ABG Glucose (75-99) mg/dL ABG Lactic Acid (0.5-1.6) mmol/L Hemoglobin (11.4-16.0) gm/dL Chloride (98-107) mmol/L BUN (7-17) mg/dL Creatinine (0.52-1.04) mg/dL Glucose (74-99) mg/dL POC Glucose (mg/dL) 145 H 144 H 144 H (75-99) mg/dL Calcium (8.4-10.2) mg/dL Phosphorus (2.5-4.5) mg/dL Magnesium (1.6-2.3) mg/dL Total Bilirubin (0.2-1.3) mg/dL AST (14-36) U/L Alkaline Phosphatase (38-126) U/L Total Protein (6.3-8.2) g/dL Albumin (3.5-5.0) g/dL Arterial Blood Glucose (75-99) mg/dL Crossmatch 03/20/19 03/20/19 03/20/19 Range/Units 04:45 04:45 04:45 WBC (3.8-10.6) k/uL RBC 2.76 L (3.80-5.40) m/uL Hgb 8.2 L (11.4-16.0) gm/dL Hct 23.8 L (34.0-46.0) % Plt Count 93 L (150-450) k/uL Neutrophils # 8.7 H (1.3-7.7) k/uL Lymphocytes # 0.8 L (1.0-4.8) k/uL Monocytes # (0-1.0) k/uL PT 12.1 H (9.0-12.0) sec INR 1.2 H (<1.2) ABG pH (7.35-7.45) ABG pCO2 (35-45) mmHg ABG pO2 (83-108) mmHg ABG HCO3 (21-25) mmol/L ABG Total CO2 (19-24) mmol/L ABG O2 Saturation (94-97) % ABG Hematocrit (34.0-46.0) % ABG Ionized Calcium (4.5-5.3) mg/dL ABG Glucose (75-99) mg/dL ABG Lactic Acid (0.5-1.6) mmol/L Hemoglobin (11.4-16.0) gm/dL Chloride 109 H (98-107) mmol/L BUN 24 H (7-17) mg/dL Creatinine 1.16 H (0.52-1.04) mg/dL Glucose 134 H (74-99) mg/dL POC Glucose (mg/dL) (75-99) mg/dL Calcium 8.3 L (8.4-10.2) mg/dL Phosphorus 2.2 L (2.5-4.5) mg/dL Magnesium (1.6-2.3) mg/dL Total Bilirubin (0.2-1.3) mg/dL AST 84 H (14-36) U/L Alkaline Phosphatase 26 L (38-126) U/L Total Protein 4.0 L (6.3-8.2) g/dL Albumin 2.7 L (3.5-5.0) g/dL Arterial Blood Glucose (75-99) mg/dL Crossmatch 03/20/19 03/20/19 03/20/19 Range/Units 04:47 05:02 07:14 WBC (3.8-10.6) k/uL RBC (3.80-5.40) m/uL Hgb (11.4-16.0) gm/dL Hct (34.0-46.0) % Plt Count (150-450) k/uL Neutrophils # (1.3-7.7) k/uL Lymphocytes # (1.0-4.8) k/uL Monocytes # (0-1.0) k/uL PT (9.0-12.0) sec INR (<1.2) ABG pH 7.48 H (7.35-7.45) ABG pCO2 (35-45) mmHg ABG pO2 (83-108) mmHg ABG HCO3 28 H (21-25) mmol/L ABG Total CO2 29 H (19-24) mmol/L ABG O2 Saturation 98.1 H (94-97) % ABG Hematocrit (34.0-46.0) % ABG Ionized Calcium (4.5-5.3) mg/dL ABG Glucose (75-99) mg/dL ABG Lactic Acid (0.5-1.6) mmol/L Hemoglobin (11.4-16.0) gm/dL Chloride (98-107) mmol/L BUN (7-17) mg/dL Creatinine (0.52-1.04) mg/dL Glucose (74-99) mg/dL POC Glucose (mg/dL) 140 H 120 H (75-99) mg/dL Calcium (8.4-10.2) mg/dL Phosphorus (2.5-4.5) mg/dL Magnesium (1.6-2.3) mg/dL Total Bilirubin (0.2-1.3) mg/dL AST (14-36) U/L Alkaline Phosphatase (38-126) U/L Total Protein (6.3-8.2) g/dL Albumin (3.5-5.0) g/dL Arterial Blood Glucose (75-99) mg/dL Crossmatch 03/20/19 03/20/19 03/20/19 Range/Units 08:17 08:24 09:16 WBC (3.8-10.6) k/uL RBC (3.80-5.40) m/uL Hgb (11.4-16.0) gm/dL Hct (34.0-46.0) % Plt Count (150-450) k/uL Neutrophils # (1.3-7.7) k/uL Lymphocytes # (1.0-4.8) k/uL Monocytes # (0-1.0) k/uL PT (9.0-12.0) sec INR (<1.2) ABG pH 7.47 H (7.35-7.45) ABG pCO2 (35-45) mmHg ABG pO2 76 L (83-108) mmHg ABG HCO3 28 H (21-25) mmol/L ABG Total CO2 30 H (19-24) mmol/L ABG O2 Saturation (94-97) % ABG Hematocrit (34.0-46.0) % ABG Ionized Calcium (4.5-5.3) mg/dL ABG Glucose (75-99) mg/dL ABG Lactic Acid (0.5-1.6) mmol/L Hemoglobin (11.4-16.0) gm/dL Chloride (98-107) mmol/L BUN (7-17) mg/dL Creatinine (0.52-1.04) mg/dL Glucose (74-99) mg/dL POC Glucose (mg/dL) 126 H 116 H (75-99) mg/dL Calcium (8.4-10.2) mg/dL Phosphorus (2.5-4.5) mg/dL Magnesium (1.6-2.3) mg/dL Total Bilirubin (0.2-1.3) mg/dL AST (14-36) U/L Alkaline Phosphatase (38-126) U/L Total Protein (6.3-8.2) g/dL Albumin (3.5-5.0) g/dL Arterial Blood Glucose (75-99) mg/dL Crossmatch 03/20/19 03/20/19 03/20/19 Range/Units 10:54 12:35 13:10 WBC (3.8-10.6) k/uL RBC (3.80-5.40) m/uL Hgb (11.4-16.0) gm/dL Hct (34.0-46.0) % Plt Count (150-450) k/uL Neutrophils # (1.3-7.7) k/uL Lymphocytes # (1.0-4.8) k/uL Monocytes # (0-1.0) k/uL PT (9.0-12.0) sec INR (<1.2) ABG pH (7.35-7.45) ABG pCO2 (35-45) mmHg ABG pO2 (83-108) mmHg ABG HCO3 (21-25) mmol/L ABG Total CO2 (19-24) mmol/L ABG O2 Saturation (94-97) % ABG Hematocrit (34.0-46.0) % ABG Ionized Calcium (4.5-5.3) mg/dL ABG Glucose (75-99) mg/dL ABG Lactic Acid (0.5-1.6) mmol/L Hemoglobin (11.4-16.0) gm/dL Chloride (98-107) mmol/L BUN (7-17) mg/dL Creatinine (0.52-1.04) mg/dL Glucose (74-99) mg/dL POC Glucose (mg/dL) 119 H 120 H 139 H (75-99) mg/dL Calcium (8.4-10.2) mg/dL Phosphorus (2.5-4.5) mg/dL Magnesium (1.6-2.3) mg/dL Total Bilirubin (0.2-1.3) mg/dL AST (14-36) U/L Alkaline Phosphatase (38-126) U/L Total Protein (6.3-8.2) g/dL Albumin (3.5-5.0) g/dL Arterial Blood Glucose (75-99) mg/dL Crossmatch Assessment and Plan Assessment: -Status post CABG 1 with Aortic and Mitral valve repair -Acute postoperative bleeding, unexpected outcome -Acute blood loss anemia secondary to the above, status post transfusions of multiple products; RBCs, cryoprecipitate, FFP, platelets -Postoperative hypotension, unexpected outcome, pressor dependent -Secondary pulmonary hypertension -Ischemic cardiomyopathy, preop EF 30% -Hyperlipidemia -Hypertension -Hypothyroidism -Right ICA stenosis 50-70% Plan: Continue current medication regime ,monitoring and symptomatic treatment. Receiving 1 unit of packed RBCs for hemoglobin 8.2. Close monitoring of he moglobin, renal function, electrolytes with repeat labs ordered for a.m. Maintain nebulized bronchodilators. GI and DVT prophylaxis in place. Close monitoring of Accu-Cheks currently on insulin drip. Further recommendations to follow. The impression and plan of care has been dictated as directed. : I performed a history and examination of this patient, discussed the same with the dictator. I agree with the dictator's note ,documented as a scribe. Any additional findings or plans will be noted. Time taken: 35 minutes.
[2019-03-20 15:41] LABS: HCT 24.4 % (34.0-46.0); HGB 8.3 gm/dL (11.4-16.0); MCH 30.6 pg (25.0-35.0); Mean Platelet Volume 8.1; RBC 2.71 m/uL (3.80-5.40); RDW 14.5 % (11.5-15.5); WBC 14.2 k/uL (3.8-10.6)
[2019-03-20 15:49] LABS: Potassium 4.1 mmol/L (3.5-5.1)
[2019-03-20 15:52] LABS: Platelet Count 83 k/uL (150-450)
[2019-03-20 15:52] LABS: Glucose,Whole Blood 123 mg/dL (75-99)
[2019-03-20 16:19] LABS: Glucose,Whole Blood 119 mg/dL (75-99)
--- NOTE | 2019-03-20 16:34 | P.PN ---
Subjective This is Marily Basilio PA-C dictating a progress note on this patient The patient was interviewed and examined by me as well as by Dr. Geiger Case discussed with Dr. Geiger and he agrees with the plan of care IMPRESSION / ASSESSMENT: Severe aortic stenosis status post aortic valve replacement Moderate to severe mitral regurgitation status post mitral valve repair Single-vessel CAD status post CABG x 1 Acute postop blood loss anemia, status post multiple transfusions Ischemic cardiomyopathy, preoperative EF 30%, echo today showed EF 40-45% Hypertension Dyslipidemia PLAN: Maximize medical treatment of CAD and cardiomyopathy Continue beta blockers as blood pressure tolerates Continue aspirin and statins HPI/interval history Patient is a 79-year-old female with past medical history of aortic stenosis, mitral regurgitation, CAD, ischemic cardiomyopathy, hypertension who presented to the hospital for aortic valve replacement, mitral valve repair and CABG. She is postop day 1 status post aortic valve replacement with #23 bioprosthetic aortic valve, mitral valve repair with annuloplasty ring, saphenous vein graft to circumflex artery and ligation of left atrial appendage. Surgery was complicated by postoperative bleeding requiring emergent reexploration of the chest and placement of intra-aortic balloon pump. Patient received multiple transfusions. The balloon pump was removed this morning. She is on pressors. Low-dose beta blockers have been started. She remains sedated and intubated EXAMINATION Temperature is 98.8F, pulse 78, respirations 19, blood pressure 107/45, oxygen saturation 98% on mechanical ventilation Seen and examined lying in bed, sedated and intubated Breath sounds equal bilaterally Heart is regular, no murmurs appreciated Extremities warm REVIEW OF LABS, ECG WBC 10.5, hemoglobin 8.2, potassium 4.1, BUN 24, creatinine 1.16, AST 84 Initial EKG showed atrial fibrillation with left bundle branch block Echocardiogram this morning showed LV function mild to moderately impaired with EF 40-45% few PVCs on bedside telemetry Objective - Vital Signs Vital signs: Vital Signs Temp 98.8 F 03/20/19 00:01 Pulse 82 03/20/19 07:34 Resp 22 03/20/19 07:00 BP 115/62 03/19/19 20:00 Pulse Ox 95 03/20/19 07:00 Intake & Output 03/19/19 03/20/19 03/20/19 18:59 06:59 18:59 Intake Total 6394 1941.351 345.968 Output Total 7820 2005 145 Balance -1426 -64.649 200.968 Weight 117.1 kg Intake: IV 3122 1111.5 329 Albumin Human 5% 250 ml 250 250 In Empty Bag 1 bag @ 250 mls/hr IVPB Q1HR PRN Rx#: [id number] CO/CI 120 200 20 Lactated Ringers 3000 600 50 Nitroglycerin-D5w Pmx 50 7.5 mg In Dextrose/Water 1 250ml.bag @ Per Protocol IV ONCE ONE Rx#:[id number] pressure bags 54 9 Intake, IV Titration 784.851 16.968 Amount Insulin Regular 100 unit 28.532 16.968 In Sodium Chloride 0.9% 100 ml @ Per Protocol IV .Q0M [facility] Rx#:[id number] Norepinephrine 4 mg In 655.335 Sodium Chloride 0.9% 250 ml @ 0.02 MCG/KG/MIN 7. 925 mls/hr IV .Q24H [facility] Rx#:[id number] Propofol 1,000 mg In 100.984 Empty Bag 1 bag @ Titrate IV .Q0M [facility] Rx#: [id number] Blood Product 3272 Ffp 24 Cp2d Unit 336 [id number] Ffp 24 Cp2d Unit 315 [id number] Ffp 24 Cpd Unit 336 [id number] Platelet Irr Pheresis 2 314 Acda Unit [id number] Platelet Irr Pheresis 2 301 Acda Unit [id number] Pooled Cryoprecipitate 120 Unit [id number] Rc As-1 Unit 310 [id number] Rc As-1 Unit 310 [id number] Rc As-1 Unit 310 [id number] Rc As-1 Unit 310 [id number] Rc As-1 Unit 310 [id number] Other 45 Output: Chest Tube Drainage 2250 1046 80 Left Pleural 246 30 Mediastinal 800 50 Mediastinal/Left Pleural 2250 Gastric Drainage 100 Urine 770 860 65 Estimated Blood Loss 4800 Other: Voiding Method Indwelling Catheter Indwelling Catheter ABP, PAP, CO, CI - Last Documented Arterial Blood Pressure 126/52 Pulmonary Artery Pressure 44/27 Cardiac Output 5.9 Cardiac Index 2.7 - Labs CBC & Chem 7: 03/20/19 15:30 03/20/19 15:30 Labs: Abnormal Lab Results - Last 24 Hours (Table) 03/13/19 03/19/19 03/19/19 Range/Units 09:00 08:39 10:35 WBC (3.8-10.6) k/uL RBC (3.80-5.40) m/uL Hgb (11.4-16.0) gm/dL Hct (34.0-46.0) % Plt Count (150-450) k/uL Neutrophils # (1.3-7.7) k/uL Lymphocytes # (1.0-4.8) k/uL Monocytes # (0-1.0) k/uL PT (9.0-12.0) sec INR (<1.2) ABG pH 7.32 L (7.35-7.45) ABG pCO2 46 H (35-45) mmHg ABG pO2 >420 H 237 H (83-108) mmHg ABG HCO3 (21-25) mmol/L ABG Total CO2 25 H 25 H (19-24) mmol/L ABG O2 Saturation 100.0 H 100.0 H (94-97) % ABG Hematocrit 26 L (34.0-46.0) % ABG Potassium 5.5 H (3.4-4.5) mmol/L ABG Ionized Calcium (4.5-5.3) mg/dL ABG Glucose 101 H 193 H (75-99) mg/dL ABG Lactic Acid (0.5-1.6) mmol/L Hemoglobin 11.2 L 8.3 L (11.4-16.0) gm/dL Chloride (98-107) mmol/L BUN (7-17) mg/dL Creatinine (0.52-1.04) mg/dL Glucose (74-99) mg/dL POC Glucose (mg/dL) (75-99) mg/dL Calcium (8.4-10.2) mg/dL Phosphorus (2.5-4.5) mg/dL Magnesium (1.6-2.3) mg/dL Total Bilirubin (0.2-1.3) mg/dL AST (14-36) U/L Alkaline Phosphatase (38-126) U/L Total Protein (6.3-8.2) g/dL Albumin (3.5-5.0) g/dL Arterial Blood Potassium 5.5 H (3.4-4.5) mmol/L Arterial Blood Glucose 101 H 193 H (75-99) mg/dL Crossmatch See Detail 03/19/19 03/19/19 03/19/19 Range/Units 11:15 11:47 12:25 WBC (3.8-10.6) k/uL RBC (3.80-5.40) m/uL Hgb (11.4-16.0) gm/dL Hct (34.0-46.0) % Plt Count (150-450) k/uL Neutrophils # (1.3-7.7) k/uL Lymphocytes # (1.0-4.8) k/uL Monocytes # (0-1.0) k/uL PT (9.0-12.0) sec INR (<1.2) ABG pH 7.29 L (7.35-7.45) ABG pCO2 47 H (35-45) mmHg ABG pO2 243 H 285 H 200 H (83-108) mmHg ABG HCO3 (21-25) mmol/L ABG Total CO2 25 H (19-24) mmol/L ABG O2 Saturation 100.0 H 100.0 H 100.0 H (94-97) % ABG Hematocrit 25 L 25 L 24 L (34.0-46.0) % ABG Potassium 5.7 H 5.4 H 5.1 H (3.4-4.5) mmol/L ABG Ionized Calcium (4.5-5.3) mg/dL ABG Glucose 199 H 176 H 156 H (75-99) mg/dL ABG Lactic Acid 1.7 H 2.7 H* (0.5-1.6) mmol/L Hemoglobin 8.2 L 8.0 L 7.8 L (11.4-16.0) gm/dL Chloride (98-107) mmol/L BUN (7-17) mg/dL Creatinine (0.52-1.04) mg/dL Glucose (74-99) mg/dL POC Glucose (mg/dL) (75-99) mg/dL Calcium (8.4-10.2) mg/dL Phosphorus (2.5-4.5) mg/dL Magnesium (1.6-2.3) mg/dL Total Bilirubin (0.2-1.3) mg/dL AST (14-36) U/L Alkaline Phosphatase (38-126) U/L Total Protein (6.3-8.2) g/dL Albumin (3.5-5.0) g/dL Arterial Blood Potassium 5.7 H 5.4 H 5.1 H (3.4-4.5) mmol/L Arterial Blood Glucose 199 H 176 H 156 H (75-99) mg/dL Crossmatch 03/19/19 03/19/19 03/19/19 Range/Units 13:30 14:30 14:30 WBC 10.9 H (3.8-10.6) k/uL RBC 2.35 L (3.80-5.40) m/uL Hgb 7.2 L D (11.4-16.0) gm/dL Hct 21.3 L (34.0-46.0) % Plt Count 119 L (150-450) k/uL Neutrophils # 9.1 H (1.3-7.7) k/uL Lymphocytes # (1.0-4.8) k/uL Monocytes # (0-1.0) k/uL PT (9.0-12.0) sec INR (<1.2) ABG pH (7.35-7.45) ABG pCO2 (35-45) mmHg ABG pO2 192 H (83-108) mmHg ABG HCO3 26 H (21-25) mmol/L ABG Total CO2 28 H (19-24) mmol/L ABG O2 Saturation 100.0 H (94-97) % ABG Hematocrit 25 L (34.0-46.0) % ABG Potassium (3.4-4.5) mmol/L ABG Ionized Calcium 4.1 L (4.5-5.3) mg/dL ABG Glucose 143 H (75-99) mg/dL ABG Lactic Acid 2.2 H* (0.5-1.6) mmol/L Hemoglobin 8.0 L (11.4-16.0) gm/dL Chloride 108 H (98-107) mmol/L BUN 27 H (7-17) mg/dL Creatinine 1.23 H (0.52-1.04) mg/dL Glucose 157 H (74-99) mg/dL POC Glucose (mg/dL) (75-99) mg/dL Calcium (8.4-10.2) mg/dL Phosphorus (2.5-4.5) mg/dL Magnesium 2.5 H (1.6-2.3) mg/dL Total Bilirubin (0.2-1.3) mg/dL AST 39 H (14-36) U/L Alkaline Phosphatase 35 L (38-126) U/L Total Protein 4.3 L (6.3-8.2) g/dL Albumin 2.7 L (3.5-5.0) g/dL Arterial Blood Potassium (3.4-4.5) mmol/L Arterial Blood Glucose 143 H (75-99) mg/dL Crossmatch 03/19/19 03/19/19 03/19/19 Range/Units 14:30 14:38 15:04 WBC (3.8-10.6) k/uL RBC (3.80-5.40) m/uL Hgb (11.4-16.0) gm/dL Hct (34.0-46.0) % Plt Count (150-450) k/uL Neutrophils # (1.3-7.7) k/uL Lymphocytes # (1.0-4.8) k/uL Monocytes # (0-1.0) k/uL PT 12.2 H (9.0-12.0) sec INR 1.2 H (<1.2) ABG pH 7.29 L (7.35-7.45) ABG pCO2 50 H (35-45) mmHg ABG pO2 289 H (83-108) mmHg ABG HCO3 (21-25) mmol/L ABG Total CO2 26 H (19-24) mmol/L ABG O2 Saturation 99.8 H (94-97) % ABG Hematocrit (34.0-46.0) % ABG Potassium (3.4-4.5) mmol/L ABG Ionized Calcium (4.5-5.3) mg/dL ABG Glucose (75-99) mg/dL ABG Lactic Acid (0.5-1.6) mmol/L Hemoglobin (11.4-16.0) gm/dL Chloride (98-107) mmol/L BUN (7-17) mg/dL Creatinine (0.52-1.04) mg/dL Glucose (74-99) mg/dL POC Glucose (mg/dL) 180 H (75-99) mg/dL Calcium (8.4-10.2) mg/dL Phosphorus (2.5-4.5) mg/dL Magnesium (1.6-2.3) mg/dL Total Bilirubin (0.2-1.3) mg/dL AST (14-36) U/L Alkaline Phosphatase (38-126) U/L Total Protein (6.3-8.2) g/dL Albumin (3.5-5.0) g/dL Arterial Blood Potassium (3.4-4.5) mmol/L Arterial Blood Glucose (75-99) mg/dL Crossmatch 03/19/19 03/19/19 03/19/19 Range/Units 15:42 16:25 17:03 WBC (3.8-10.6) k/uL RBC (3.80-5.40) m/uL Hgb (11.4-16.0) gm/dL Hct (34.0-46.0) % Plt Count (150-450) k/uL Neutrophils # (1.3-7.7) k/uL Lymphocytes # (1.0-4.8) k/uL Monocytes # (0-1.0) k/uL PT (9.0-12.0) sec INR (<1.2) ABG pH 7.16 L* 7.22 L (7.35-7.45) ABG pCO2 55 H 48 H (35-45) mmHg ABG pO2 151 H 74 L 198 H (83-108) mmHg ABG HCO3 20 L 19 L (21-25) mmol/L ABG Total CO2 (19-24) mmol/L ABG O2 Saturation 99.3 H 93.4 L 99.9 H (94-97) % ABG Hematocrit 19 L* 23 L (34.0-46.0) % ABG Potassium (3.4-4.5) mmol/L ABG Ionized Calcium 4.4 L (4.5-5.3) mg/dL ABG Glucose 231 H 316 H (75-99) mg/dL ABG Lactic Acid 5.1 H* 7.2 H* (0.5-1.6) mmol/L Hemoglobin 6.1 L* 7.4 L (11.4-16.0) gm/dL Chloride (98-107) mmol/L BUN (7-17) mg/dL Creatinine (0.52-1.04) mg/dL Glucose (74-99) mg/dL POC Glucose (mg/dL) (75-99) mg/dL Calcium (8.4-10.2) mg/dL Phosphorus (2.5-4.5) mg/dL Magnesium (1.6-2.3) mg/dL Total Bilirubin (0.2-1.3) mg/dL AST (14-36) U/L Alkaline Phosphatase (38-126) U/L Total Protein (6.3-8.2) g/dL Albumin (3.5-5.0) g/dL Arterial Blood Potassium (3.4-4.5) mmol/L Arterial Blood Glucose 231 H 316 H (75-99) mg/dL Crossmatch 03/19/19 03/19/19 03/19/19 Range/Units 17:25 18:07 19:00 WBC (3.8-10.6) k/uL RBC 2.62 L (3.80-5.40) m/uL Hgb 7.6 L (11.4-16.0) gm/dL Hct 23.7 L (34.0-46.0) % Plt Count 73 L (150-450) k/uL Neutrophils # 8.9 H (1.3-7.7) k/uL Lymphocytes # 0.3 L (1.0-4.8) k/uL Monocytes # 1.2 H (0-1.0) k/uL PT (9.0-12.0) sec INR (<1.2) ABG pH 7.33 L (7.35-7.45) ABG pCO2 (35-45) mmHg ABG pO2 209 H (83-108) mmHg ABG HCO3 (21-25) mmol/L ABG Total CO2 26 H (19-24) mmol/L ABG O2 Saturation 100.0 H 99.0 H (94-97) % ABG Hematocrit 23 L 25 L (34.0-46.0) % ABG Potassium (3.4-4.5) mmol/L ABG Ionized Calcium 4.3 L (4.5-5.3) mg/dL ABG Glucose 291 H 253 H (75-99) mg/dL ABG Lactic Acid 7.0 H* 5.9 H* (0.5-1.6) mmol/L Hemoglobin 7.6 L 8.2 L (11.4-16.0) gm/dL Chloride (98-107) mmol/L BUN (7-17) mg/dL Creatinine (0.52-1.04) mg/dL Glucose (74-99) mg/dL POC Glucose (mg/dL) (75-99) mg/dL Calcium (8.4-10.2) mg/dL Phosphorus (2.5-4.5) mg/dL Magnesium (1.6-2.3) mg/dL Total Bilirubin (0.2-1.3) mg/dL AST (14-36) U/L Alkaline Phosphatase (38-126) U/L Total Protein (6.3-8.2) g/dL Albumin (3.5-5.0) g/dL Arterial Blood Potassium (3.4-4.5) mmol/L Arterial Blood Glucose 291 H 253 H (75-99) mg/dL Crossmatch 03/19/19 03/19/19 03/19/19 Range/Units 19:00 19:09 20:01 WBC (3.8-10.6) k/uL RBC (3.80-5.40) m/uL Hgb (11.4-16.0) gm/dL Hct (34.0-46.0) % Plt Count (150-450) k/uL Neutrophils # (1.3-7.7) k/uL Lymphocytes # (1.0-4.8) k/uL Monocytes # (0-1.0) k/uL PT (9.0-12.0) sec INR (<1.2) ABG pH 7.48 H (7.35-7.45) ABG pCO2 (35-45) mmHg ABG pO2 (83-108) mmHg ABG HCO3 27 H (21-25) mmol/L ABG Total CO2 28 H (19-24) mmol/L ABG O2 Saturation 98.6 H (94-97) % ABG Hematocrit (34.0-46.0) % ABG Potassium (3.4-4.5) mmol/L ABG Ionized Calcium (4.5-5.3) mg/dL ABG Glucose (75-99) mg/dL ABG Lactic Acid (0.5-1.6) mmol/L Hemoglobin (11.4-16.0) gm/dL Chloride 109 H (98-107) mmol/L BUN 24 H (7-17) mg/dL Creatinine (0.52-1.04) mg/dL Glucose 206 H (74-99) mg/dL POC Glucose (mg/dL) 249 H (75-99) mg/dL Calcium 7.8 L (8.4-10.2) mg/dL Phosphorus (2.5-4.5) mg/dL Magnesium (1.6-2.3) mg/dL Total Bilirubin 1.5 H (0.2-1.3) mg/dL AST 53 H (14-36) U/L Alkaline Phosphatase <20 L (38-126) U/L Total Protein 3.3 L (6.3-8.2) g/dL Albumin 2.0 L (3.5-5.0) g/dL Arterial Blood Potassium (3.4-4.5) mmol/L Arterial Blood Glucose (75-99) mg/dL Crossmatch 03/19/19 03/19/19 03/19/19 Range/Units 20:20 21:10 22:06 WBC (3.8-10.6) k/uL RBC (3.80-5.40) m/uL Hgb (11.4-16.0) gm/dL Hct (34.0-46.0) % Plt Count (150-450) k/uL Neutrophils # (1.3-7.7) k/uL Lymphocytes # (1.0-4.8) k/uL Monocytes # (0-1.0) k/uL PT (9.0-12.0) sec INR (<1.2) ABG pH (7.35-7.45) ABG pCO2 (35-45) mmHg ABG pO2 (83-108) mmHg ABG HCO3 (21-25) mmol/L ABG Total CO2 (19-24) mmol/L ABG O2 Saturation (94-97) % ABG Hematocrit (34.0-46.0) % ABG Potassium (3.4-4.5) mmol/L ABG Ionized Calcium (4.5-5.3) mg/dL ABG Glucose (75-99) mg/dL ABG Lactic Acid (0.5-1.6) mmol/L Hemoglobin (11.4-16.0) gm/dL Chloride (98-107) mmol/L BUN (7-17) mg/dL Creatinine (0.52-1.04) mg/dL Glucose (74-99) mg/dL POC Glucose (mg/dL) 237 H 206 H 200 H (75-99) mg/dL Calcium (8.4-10.2) mg/dL Phosphorus (2.5-4.5) mg/dL Magnesium (1.6-2.3) mg/dL Total Bilirubin (0.2-1.3) mg/dL AST (14-36) U/L Alkaline Phosphatase (38-126) U/L Total Protein (6.3-8.2) g/dL Albumin (3.5-5.0) g/dL Arterial Blood Potassium (3.4-4.5) mmol/L Arterial Blood Glucose (75-99) mg/dL Crossmatch 03/19/19 03/19/19 03/19/19 Range/Units 22:15 22:15 22:15 WBC (3.8-10.6) k/uL RBC 2.88 L (3.80-5.40) m/uL Hgb 8.7 L (11.4-16.0) gm/dL Hct 25.1 L (34.0-46.0) % Plt Count 92 L (150-450) k/uL Neutrophils # (1.3-7.7) k/uL Lymphocytes # (1.0-4.8) k/uL Monocytes # (0-1.0) k/uL PT (9.0-12.0) sec INR 1.2 H (<1.2) ABG pH (7.35-7.45) ABG pCO2 (35-45) mmHg ABG pO2 (83-108) mmHg ABG HCO3 (21-25) mmol/L ABG Total CO2 (19-24) mmol/L ABG O2 Saturation (94-97) % ABG Hematocrit (34.0-46.0) % ABG Potassium (3.4-4.5) mmol/L ABG Ionized Calcium (4.5-5.3) mg/dL ABG Glucose (75-99) mg/dL ABG Lactic Acid (0.5-1.6) mmol/L Hemoglobin (11.4-16.0) gm/dL Chloride 108 H (98-107) mmol/L BUN 23 H (7-17) mg/dL Creatinine 1.09 H (0.52-1.04) mg/dL Glucose 175 H (74-99) mg/dL POC Glucose (mg/dL) (75-99) mg/dL Calcium 8.2 L (8.4-10.2) mg/dL Phosphorus (2.5-4.5) mg/dL Magnesium (1.6-2.3) mg/dL Total Bilirubin (0.2-1.3) mg/dL AST 73 H (14-36) U/L Alkaline Phosphatase 24 L (38-126) U/L Total Protein 3.9 L (6.3-8.2) g/dL Albumin 2.5 L (3.5-5.0) g/dL Arterial Blood Potassium (3.4-4.5) mmol/L Arterial Blood Glucose (75-99) mg/dL Crossmatch 03/19/19 03/19/19 03/20/19 Range/Units 23:04 23:59 01:17 WBC (3.8-10.6) k/uL RBC (3.80-5.40) m/uL Hgb (11.4-16.0) gm/dL Hct (34.0-46.0) % Plt Count (150-450) k/uL Neutrophils # (1.3-7.7) k/uL Lymphocytes # (1.0-4.8) k/uL Monocytes # (0-1.0) k/uL PT (9.0-12.0) sec INR (<1.2) ABG pH (7.35-7.45) ABG pCO2 (35-45) mmHg ABG pO2 (83-108) mmHg ABG HCO3 (21-25) mmol/L ABG Total CO2 (19-24) mmol/L ABG O2 Saturation (94-97) % ABG Hematocrit (34.0-46.0) % ABG Potassium (3.4-4.5) mmol/L ABG Ionized Calcium (4.5-5.3) mg/dL ABG Glucose (75-99) mg/dL ABG Lactic Acid (0.5-1.6) mmol/L Hemoglobin (11.4-16.0) gm/dL Chloride (98-107) mmol/L BUN (7-17) mg/dL Creatinine (0.52-1.04) mg/dL Glucose (74-99) mg/dL POC Glucose (mg/dL) 162 H 156 H 141 H (75-99) mg/dL Calcium (8.4-10.2) mg/dL Phosphorus (2.5-4.5) mg/dL Magnesium (1.6-2.3) mg/dL Total Bilirubin (0.2-1.3) mg/dL AST (14-36) U/L Alkaline Phosphatase (38-126) U/L Total Protein (6.3-8.2) g/dL Albumin (3.5-5.0) g/dL Arterial Blood Potassium (3.4-4.5) mmol/L Arterial Blood Glucose (75-99) mg/dL Crossmatch 03/20/19 03/20/19 03/20/19 Range/Units 02:20 03:01 04:05 WBC (3.8-10.6) k/uL RBC (3.80-5.40) m/uL Hgb (11.4-16.0) gm/dL Hct (34.0-46.0) % Plt Count (150-450) k/uL Neutrophils # (1.3-7.7) k/uL Lymphocytes # (1.0-4.8) k/uL Monocytes # (0-1.0) k/uL PT (9.0-12.0) sec INR (<1.2) ABG pH (7.35-7.45) ABG pCO2 (35-45) mmHg ABG pO2 (83-108) mmHg ABG HCO3 (21-25) mmol/L ABG Total CO2 (19-24) mmol/L ABG O2 Saturation (94-97) % ABG Hematocrit (34.0-46.0) % ABG Potassium (3.4-4.5) mmol/L ABG Ionized Calcium (4.5-5.3) mg/dL ABG Glucose (75-99) mg/dL ABG Lactic Acid (0.5-1.6) mmol/L Hemoglobin (11.4-16.0) gm/dL Chloride (98-107) mmol/L BUN (7-17) mg/dL Creatinine (0.52-1.04) mg/dL Glucose (74-99) mg/dL POC Glucose (mg/dL) 145 H 144 H 144 H (75-99) mg/dL Calcium (8.4-10.2) mg/dL Phosphorus (2.5-4.5) mg/dL Magnesium (1.6-2.3) mg/dL Total Bilirubin (0.2-1.3) mg/dL AST (14-36) U/L Alkaline Phosphatase (38-126) U/L Total Protein (6.3-8.2) g/dL Albumin (3.5-5.0) g/dL Arterial Blood Potassium (3.4-4.5) mmol/L Arterial Blood Glucose (75-99) mg/dL Crossmatch 03/20/19 03/20/19 03/20/19 Range/Units 04:45 04:45 04:45 WBC (3.8-10.6) k/uL RBC 2.76 L (3.80-5.40) m/uL Hgb 8.2 L (11.4-16.0) gm/dL Hct 23.8 L (34.0-46.0) % Plt Count 93 L (150-450) k/uL Neutrophils # 8.7 H (1.3-7.7) k/uL Lymphocytes # 0.8 L (1.0-4.8) k/uL Monocytes # (0-1.0) k/uL PT 12.1 H (9.0-12.0) sec INR 1.2 H (<1.2) ABG pH (7.35-7.45) ABG pCO2 (35-45) mmHg ABG pO2 (83-108) mmHg ABG HCO3 (21-25) mmol/L ABG Total CO2 (19-24) mmol/L ABG O2 Saturation (94-97) % ABG Hematocrit (34.0-46.0) % ABG Potassium (3.4-4.5) mmol/L ABG Ionized Calcium (4.5-5.3) mg/dL ABG Glucose (75-99) mg/dL ABG Lactic Acid (0.5-1.6) mmol/L Hemoglobin (11.4-16.0) gm/dL Chloride 109 H (98-107) mmol/L BUN 24 H (7-17) mg/dL Creatinine 1.16 H (0.52-1.04) mg/dL Glucose 134 H (74-99) mg/dL POC Glucose (mg/dL) (75-99) mg/dL Calcium 8.3 L (8.4-10.2) mg/dL Phosphorus 2.2 L (2.5-4.5) mg/dL Magnesium (1.6-2.3) mg/dL Total Bilirubin (0.2-1.3) mg/dL AST 84 H (14-36) U/L Alkaline Phosphatase 26 L (38-126) U/L Total Protein 4.0 L (6.3-8.2) g/dL Albumin 2.7 L (3.5-5.0) g/dL Arterial Blood Potassium (3.4-4.5) mmol/L Arterial Blood Glucose (75-99) mg/dL Crossmatch 03/20/19 03/20/19 03/20/19 Range/Units 04:47 05:02 07:14 WBC (3.8-10.6) k/uL RBC (3.80-5.40) m/uL Hgb (11.4-16.0) gm/dL Hct (34.0-46.0) % Plt Count (150-450) k/uL Neutrophils # (1.3-7.7) k/uL Lymphocytes # (1.0-4.8) k/uL Monocytes # (0-1.0) k/uL PT (9.0-12.0) sec INR (<1.2) ABG pH 7.48 H (7.35-7.45) ABG pCO2 (35-45) mmHg ABG pO2 (83-108) mmHg ABG HCO3 28 H (21-25) mmol/L ABG Total CO2 29 H (19-24) mmol/L ABG O2 Saturation 98.1 H (94-97) % ABG Hematocrit (34.0-46.0) % ABG Potassium (3.4-4.5) mmol/L ABG Ionized Calcium (4.5-5.3) mg/dL ABG Glucose (75-99) mg/dL ABG Lactic Acid (0.5-1.6) mmol/L Hemoglobin (11.4-16.0) gm/dL Chloride (98-107) mmol/L BUN (7-17) mg/dL Creatinine (0.52-1.04) mg/dL Glucose (74-99) mg/dL POC Glucose (mg/dL) 140 H 120 H (75-99) mg/dL Calcium (8.4-10.2) mg/dL Phosphorus (2.5-4.5) mg/dL Magnesium (1.6-2.3) mg/dL Total Bilirubin (0.2-1.3) mg/dL AST (14-36) U/L Alkaline Phosphatase (38-126) U/L Total Protein (6.3-8.2) g/dL Albumin (3.5-5.0) g/dL Arterial Blood Potassium (3.4-4.5) mmol/L Arterial Blood Glucose (75-99) mg/dL Crossmatch
[2019-03-20] MEDS: INSULIN REGULAR 100 UNIT in SODIUM CHLORIDE 0.9% 100 ML IV SCH (16:49)
[2019-03-20 17:41] LABS: Glucose,Whole Blood 128 mg/dL (75-99)
[2019-03-20 17:49] LABS: ABG Base Excess 3.1 mmol/L; ABG HCO3 27 mmol/L (21-25); ABG PCO2 37 mmHg (35-45); ABG PH 7.47 (7.35-7.45); ABG PO2 93 mmHg (83-108); ABG TCO2 28 mmol/L (19-24)
[2019-03-20 18:31] LABS: Glucose,Whole Blood 140 mg/dL (75-99)
[2019-03-20] MEDS ORDERED: POTASSIUM CHLORIDE 20 MEQ in WATER FOR INJECTION 1 100ML.BAG IVPB STA (18:40)
[2019-03-20] MEDS: HYDROcodone/APAP 5-325MG 1 EACH TAB PO PRN ×2 (19:12→23:41)
[2019-03-20 19:25] LABS: Glucose,Whole Blood 139 mg/dL (75-99)
[2019-03-20 20:13] LABS: Glucose,Whole Blood 130 mg/dL (75-99)
[2019-03-20 21:43] LABS: Glucose,Whole Blood 132 mg/dL (75-99)
[2019-03-20] MEDS: SENNOSIDES-DOCUSATE SODIUM 1 EACH TAB PO SCH (21:59)
[2019-03-20 22:06] LABS: Glucose,Whole Blood 130 mg/dL (75-99)
[2019-03-20 23:18] LABS: Glucose,Whole Blood 121 mg/dL (75-99)
[2019-03-21 00:06] LABS: Glucose,Whole Blood 121 mg/dL (75-99)
[2019-03-21] MEDS ORDERED: DIGOXIN 250 MCG/ML 2 ML AMP IVP STA (00:07)
[2019-03-21] MEDS: ALBUMIN HUMAN 5% 250 ML in EMPTY BAG 1 BAG IVPB PRN ×2 (00:29→06:10)
[2019-03-21 01:08] LABS: Glucose,Whole Blood 117 mg/dL (75-99)
[2019-03-21 02:39] LABS: Glucose,Whole Blood 114 mg/dL (75-99)
[2019-03-21 03:09] LABS: Glucose,Whole Blood 115 mg/dL (75-99)
[2019-03-21 04:17] LABS: Glucose,Whole Blood 134 mg/dL (75-99)
[2019-03-21 05:18] LABS: Glucose,Whole Blood 133 mg/dL (75-99)
[2019-03-21] MEDS: HYDROcodone/APAP 5-325MG 1 EACH TAB PO PRN ×2 (05:19→20:45)
[2019-03-21] MEDS: LACTATED RINGERS 1,000 ML IV SCH (05:40)
[2019-03-21 05:45] LABS: Basophils % (A) 0 %; Eosinophils % (A) 0 %; HCT 24.7 % (34.0-46.0); HGB 8.5 gm/dL (11.4-16.0); Lymphocytes # (A) 1.3 k/uL (1.0-4.8); Lymphocytes % (A) 8 %; MCH 30.8 pg (25.0-35.0); MCHC 34.3 g/dL (31.0-37.0); MCV 89.9 fL (80.0-100.0); Mean Platelet Volume 9.3; Monocytes # (A) 1.2 k/uL (0-1.0); Monocytes % (A) 7 %; Neutrophils # (A) 14.3 k/uL (1.3-7.7); Neutrophils % (A) 84 %; RBC 2.74 m/uL (3.80-5.40); RDW 15.4 % (11.5-15.5)
[2019-03-21 05:46] LABS: Platelet Count 62 k/uL (150-450)
[2019-03-21 05:56] LABS: Ionized Calcium 5.1 mg/dL (4.5-5.3)
[2019-03-21 06:05] LABS: Albumin 2.8 g/dL (3.5-5.0); Calcium 8.5 mg/dL (8.4-10.2); Magnesium 2.2 mg/dL (1.6-2.3); Potassium 4.7 mmol/L (3.5-5.1); Total Bilirubin 1.1 mg/dL (0.2-1.3); Total Protein 4.4 g/dL (6.3-8.2)
[2019-03-21 06:14] LABS: Glucose,Whole Blood 122 mg/dL (75-99)
[2019-03-21 07:03] LABS: Glucose,Whole Blood 127 mg/dL (75-99)
[2019-03-21 08:27] LABS: Glucose,Whole Blood 149 mg/dL (75-99)
[2019-03-21] MEDS: IPRATROPIUM-ALBUTEROL 3 ML NEB INHALATION SCH ×4 (08:55→19:29)
[2019-03-21] MEDS ORDERED: AMIODARONE 360 MG in DEXTROSE 5% IN WATER 200 ML IV ONE ×4 (09:28→10:33)
[2019-03-21] MEDS ORDERED: DEXTROSE 5% IN WATER 100 ML with AMIODARONE 150 MG IV ONE ×2 (09:28→13:07)
[2019-03-21] MEDS ORDERED: AMIODARONE 300 MG in DEXTROSE 5% IN WATER 250 ML IV SCH ×2 (09:30)
[2019-03-21] MEDS: PANTOPRAZOLE 40 MG/10 ML VIAL IVP SCH (09:46)
[2019-03-21] MEDS: METOPROLOL TARTRATE 12.5 MG TAB PO SCH ×2 (09:47→20:44)
[2019-03-21] MEDS: LEVOTHYROXINE 50 MCG TAB PO SCH (09:48)
[2019-03-21] MEDS: ATORVASTATIN 40 MG TAB PO SCH (09:48)
[2019-03-21] MEDS: ASPIRIN 81 MG PO SCH (09:48)
[2019-03-21] MEDS: HEPARIN SODIUM,PORCINE 5,000 UNIT/ML 1 ML VIAL SQ SCH ×2 (09:49→16:16)
[2019-03-21] MEDS: MUPIROCIN 2% OINT 22 GM TUBE NASAL SCH ×2 (10:03→20:43)
[2019-03-21 10:33] LABS: Glucose,Whole Blood 140 mg/dL (75-99)
--- NOTE | 2019-03-21 10:47 | PN ---
PROGRESS NOTE DATE OF SERVICE: 03/05/2019 This is a 79-year-old female who is postop day #2, status post aortic valve replacement for aortic stenosis, mitral valve repair, transesophageal echocardiogram, clipping of the left atrial appendage and one vessel bypass grafting. Since she has been here in the hospital, she has received a total of 6 units of PRBCs. The patient was finally extubated last night at 6:15 pm. Initially, she went back to the operating room for bleeding. The patient is currently on O2 at 4 L by nasal cannula. The patient is getting IV of lactated Ringer's at 50 mL an hour. She is currently on norepinephrine at 8 mcg/minute. She is getting insulin at 3.5 units an hour. Amiodarone is about to be started. In addition, the patient has a history of secondary pulmonary hypertension, ischemic cardiomyopathy, hypertension, hyperlipidemia, and hypothyroidism. Today, she is sitting in the chair. She is doing reasonably well. She is getting about 1000 on the incentive spirometer. We encourage her to deep breathe cough and clear secretions. Overall, she is doing reasonably well. Current vital signs are reviewed. Temperature is 99.1, heart rate 79, respiratory rate 21, blood pressure 105/59, saturations are 97% on 4 L. PAP is 39/23. Central venous pressure is 15. Appears in no acute distress. Sitting in the chair. Nasal O2 in place. HEENT examination is grossly unremarkable. Mucous membranes are moist. NECK: Supple. Full range of motion. No adenopathy or thyromegaly. Neck veins are flat. CARDIOVASCULAR: Examination reveals irregular rhythm and rate. Heart rate 84. S1, S2 normal. No murmur. LUNGS: Reveal mostly clear breath sounds. A few scattered rhonchi. No wheezes or crackles. Breath sounds are equal. ABDOMEN: Soft. Bowel sounds are heard. No masses or tenderness. EXTREMITIES: Intact. No cyanosis, clubbing, or edema. SKIN: Without rash. NEUROLOGIC: Examination is brief but nonfocal. LABS: Reviewed. White count 17, hemoglobin 8.5, hematocrit 24.7, platelet count 62,000. Sodium and potassium were normal. Chloride is 108, CO2 is 24, anion gap is normal. BUN and creatinine were 24 and 1.26. Albumin 2.8. The chest x-ray shows a central venous catheter in place. There is a small left-sided effusion. Chest tube is noted on the left. There are some postsurgical changes. There is some atelectasis at the bases, left greater than right. Labs are reviewed. White count 17, hemoglobin 8.5, hematocrit 24.7, platelet count 62,000. The rest of the labs have already been reviewed. Albumin is 2.8. Microbiology is negative. Medications are reviewed. ASSESSMENT: 1. Postoperative day #2 status post aortic valve replacement for aortic stenosis, mitral valve repair for mitral regurgitation, and one vessel bypass grafting. In addition, the patient had a transesophageal echo intraoperatively and also had a left atrial appendage clipping. 2. Postoperative bleeding, requiring emergent reexploration. 3. Routine postoperative ventilator management with extubation yesterday, March 20, 2019 at 6:15 p.m. 4. Status post 6 units of PRBCs for bleeding. 5. Secondary pulmonary hypertension. 6. Ischemic cardiomyopathy. 7. Hypertension. 8. Hyperlipidemia. 9. Hypothyroidism. PLAN: The patient is doing relatively well. The patient is sitting up in chair. The patient is currently on O2 of 4 L. She is receiving Levophed at 8 mcg/minute. She is on insulin drip at 3.5 units an hour. Amiodarone is about ready to be started. Respiratory status appears stable. Chest x-ray shows some basilar atelectasis and a small left-sided pleural effusion. No additional recommendations are made. Prognosis is guarded. Will continue to follow. CRITICAL CARE TIME: 34 minutes. KIKI / ERICA: [id number] /
--- NOTE | 2019-03-21 10:53 | P.PN ---
Subjective Progress Note Date: 03/21/19 Principal diagnosis: Severe aortic valve stenosis, moderate to severe mitral valve regurgitation, single-vessel coronary artery disease, and a decreased LV function, chronic systolic heart failure with a preoperative ejection fraction of 30%. History of hypertension, hyperlipidemia, hypothyroid, osteoarthritis, right internal carotid artery stenosis 50-70%, previous tobacco dependance with preoperative FEV1 93% of predicted. POD #2 aortic valve replacement with a #23 mm Avalus bioprosthetic Medtronic aortic valve, mitral valve repair with a #30 mm Carbomedics AnnuloFlex band. Coronary artery bypass grafting 1 vessel with a reverse greater saphenous vein off the aorta to the circumflex coronary artery and a clip ligation of the left atrial appendage with a 35 mm Atriclip. Intraoperative transesophageal echocardiogram. Acute postoperative bleeding, an unexpected outcome POD #2 Emergent re-exploration of the chest, evacuation of clots and control of bleed. Placement of intra-aortic balloon pump. Post operative atrial fibrillation, unexpected. The patient is currently sitting up in the recliner in the intensive care unit in no acute distress. She was successfully extubated at 18:10 yesterday. States her pain is controlled on current medication regimen, denies shortness of breath. Went into atrial fibrillation last night, treated with Digoxin, still in atrial fibrillation. Remains on IV levo but being weaned down. Celeste and mediastinal/left pleural chest tubes remain present. No new concerns. Objective - Vital Signs Vital signs: Vital Signs Temp 99.1 F 03/21/19 04:00 Pulse 98 03/21/19 07:00 Resp 21 03/21/19 07:00 BP 115/62 03/21/19 06:45 Pulse Ox 97 03/21/19 07:00 Intake & Output 03/20/19 03/21/19 03/21/19 18:59 06:59 18:59 Intake Total 2846.338 9286.677 Output Total 1145 763 Balance 851.841 566.677 Weight 120.5 kg Intake: IV 1328 958 Albumin Human 5% 250 ml 250 250 In Empty Bag 1 bag @ 250 mls/hr IVPB Q1HR PRN Rx#: [id number] CO/CI 170 Lactated Ringers 600 600 Magnesium Sulfate-D5w Pmx 100 1 gm In Dextrose/Water 1 100ml.bag @ 100 mls/hr IVPB Q1H CARRIE Rx#: [id number] Sodium Phosphate 10 mmol 100 In Sodium Chloride 0.9% 100 ml @ 50 mls/hr IVPB ONCE ONE Rx#:[id number] pressure bags 108 108 Intake, IV Titration 358.841 91.677 Amount Insulin Regular 100 unit 55.820 30.443 In Sodium Chloride 0.9% 100 ml @ Per Protocol IV .Q0M CARRIE Rx#:[id number] Milrinone-D5w Pmx 20 mg 95.472 In Dextrose/Water 1 100ml .bag @ Per Protocol IV . Q0M CARRIE Rx#:[id number] Norepinephrine 32 mg In 6.495 61.234 Sodium Chloride 0.9% 218 ml @ 0.05 MCG/KG/MIN 2. 745 mls/hr IV .Q24H CARRIE Rx#:[id number] Propofol 1,000 mg In 201.054 Empty Bag 1 bag @ Titrate IV .Q0M CARRIE Rx#: [id number] Oral 280 Blood Product 310 Rc As-3 Unit 310 [id number] Output: Chest Tube Drainage 620 370 Left Pleural 300 50 Mediastinal 320 320 Urine 525 393 Other: Voiding Method Indwelling Catheter Indwelling Catheter ABP, PAP, CO, CI - Last Documented Arterial Blood Pressure 105/59 Pulmonary Artery Pressure 39/23 Cardiac Output 5.3 Cardiac Index 2.4 - Constitutional General appearance: Present: cooperative, no acute distress, obese - Respiratory Details: Lungs sounds diminished bilaterally. Respirations even, non-labored on 4 LPM NC with oxygen saturation 97%. Able to achieve 750-1000 mL on incentive spirometry. Strong cough. Mediastinal chest tube connected to continuous wall suction, 230 mL serosanguinous drainage overnight, 850 mL in the last 24 hours, positive intermittent air leak. Left pleural chest tube to continuous wall suction, 50 mL serous drainage overnight, 300 mL in the last 24 hours, no air leak present. - Cardiovascular Details: S1/S2 present. Irregular rate and rhythm, controlled atrial fibrillation on telemetry. Sternum stable. A/V epicardial pacemaker wires present, connected to generator with generator turned off. Palpable peripheral pulses bilaterally. Generalized edema present. Right internal Celeste/Cordis, right radial arterial line present. Last CO/CI 6.1/2.8 on approximately 7 mcg/kg of levo. No calf pain or tenderness noted. Heart hugger in place with patient demonstrating appropriate use. Antiembolism stockings, SCDs present. - Gastrointestinal Gastrointestinal Comment(s): Abdomen soft, nontender, nondistended. Hypoactive bowel sounds present 4 quadrants. Tolerating clear liquids, no flatus yet. - Genitourinary Genitourinary Comment(s): Lovett present draining clear, yellow urine. Output 20-30 mL/h overnight. - Integumentary Integumentary Comment(s): Skin is warm and dry with evidence of good perfusion. Anterior chest incision well approximated and covered with dry intact dressing. - Neurologic Neurologic: Present: CNII-XII intact - Musculoskeletal Musculoskeletal: Present: strength equal bilaterally - Psychiatric Psychiatric: Present: A&O x's 3, appropriate affect, intact judgment & insight - Allied health notes Allied health notes reviewed: nursing - Labs CBC & Chem 7: 03/21/19 05:30 03/21/19 05:30 Labs: Abnormal Lab Results - Last 24 Hours (Table) 03/13/19 03/20/19 03/20/19 Range/Units 09:00 08:17 08:24 WBC (3.8-10.6) k/uL RBC (3.80-5.40) m/uL Hgb (11.4-16.0) gm/dL Hct (34.0-46.0) % Plt Count (150-450) k/uL Neutrophils # (1.3-7.7) k/uL Monocytes # (0-1.0) k/uL ABG pH 7.47 H (7.35-7.45) ABG pO2 76 L (83-108) mmHg ABG HCO3 28 H (21-25) mmol/L ABG Total CO2 30 H (19-24) mmol/L ABG O2 Saturation (94-97) % Chloride (98-107) mmol/L BUN (7-17) mg/dL Creatinine (0.52-1.04) mg/dL Glucose (74-99) mg/dL POC Glucose (mg/dL) 126 H (75-99) mg/dL Calcium (8.4-10.2) mg/dL AST (14-36) U/L Total Protein (6.3-8.2) g/dL Albumin (3.5-5.0) g/dL Crossmatch See Detail 03/20/19 03/20/19 03/20/19 Range/Units 09:16 10:51 10:54 WBC (3.8-10.6) k/uL RBC (3.80-5.40) m/uL Hgb (11.4-16.0) gm/dL Hct (34.0-46.0) % Plt Count (150-450) k/uL Neutrophils # (1.3-7.7) k/uL Monocytes # (0-1.0) k/uL ABG pH 7.49 H (7.35-7.45) ABG pO2 73 L (83-108) mmHg ABG HCO3 28 H (21-25) mmol/L ABG Total CO2 29 H (19-24) mmol/L ABG O2 Saturation (94-97) % Chloride (98-107) mmol/L BUN (7-17) mg/dL Creatinine (0.52-1.04) mg/dL Glucose (74-99) mg/dL POC Glucose (mg/dL) 116 H 119 H (75-99) mg/dL Calcium (8.4-10.2) mg/dL AST (14-36) U/L Total Protein (6.3-8.2) g/dL Albumin (3.5-5.0) g/dL Crossmatch 03/20/19 03/20/19 03/20/19 Range/Units 12:35 13:10 15:30 WBC (3.8-10.6) k/uL RBC (3.80-5.40) m/uL Hgb (11.4-16.0) gm/dL Hct (34.0-46.0) % Plt Count (150-450) k/uL Neutrophils # (1.3-7.7) k/uL Monocytes # (0-1.0) k/uL ABG pH (7.35-7.45) ABG pO2 (83-108) mmHg ABG HCO3 (21-25) mmol/L ABG Total CO2 (19-24) mmol/L ABG O2 Saturation (94-97) % Chloride 108 H (98-107) mmol/L BUN 24 H (7-17) mg/dL Creatinine 1.22 H (0.52-1.04) mg/dL Glucose 115 H (74-99) mg/dL POC Glucose (mg/dL) 120 H 139 H (75-99) mg/dL Calcium 8.0 L (8.4-10.2) mg/dL AST (14-36) U/L Total Protein (6.3-8.2) g/dL Albumin (3.5-5.0) g/dL Crossmatch 03/20/19 03/20/19 03/20/19 Range/Units 15:30 15:31 15:57 WBC 14.2 H (3.8-10.6) k/uL RBC 2.71 L (3.80-5.40) m/uL Hgb 8.3 L (11.4-16.0) gm/dL Hct 24.4 L (34.0-46.0) % Plt Count 83 L (150-450) k/uL Neutrophils # (1.3-7.7) k/uL Monocytes # (0-1.0) k/uL ABG pH (7.35-7.45) ABG pO2 (83-108) mmHg ABG HCO3 (21-25) mmol/L ABG Total CO2 (19-24) mmol/L ABG O2 Saturation (94-97) % Chloride (98-107) mmol/L BUN (7-17) mg/dL Creatinine (0.52-1.04) mg/dL Glucose (74-99) mg/dL POC Glucose (mg/dL) 123 H 119 H (75-99) mg/dL Calcium (8.4-10.2) mg/dL AST (14-36) U/L Total Protein (6.3-8.2) g/dL Albumin (3.5-5.0) g/dL Crossmatch 03/20/19 03/20/19 03/20/19 Range/Units 17:13 17:47 18:10 WBC (3.8-10.6) k/uL RBC (3.80-5.40) m/uL Hgb (11.4-16.0) gm/dL Hct (34.0-46.0) % Plt Count (150-450) k/uL Neutrophils # (1.3-7.7) k/uL Monocytes # (0-1.0) k/uL ABG pH 7.47 H (7.35-7.45) ABG pO2 (83-108) mmHg ABG HCO3 27 H (21-25) mmol/L ABG Total CO2 28 H (19-24) mmol/L ABG O2 Saturation 98.0 H (94-97) % Chloride (98-107) mmol/L BUN (7-17) mg/dL Creatinine (0.52-1.04) mg/dL Glucose (74-99) mg/dL POC Glucose (mg/dL) 128 H 140 H (75-99) mg/dL Calcium (8.4-10.2) mg/dL AST (14-36) U/L Total Protein (6.3-8.2) g/dL Albumin (3.5-5.0) g/dL Crossmatch 03/20/19 03/20/19 03/20/19 Range/Units 18:56 20:03 21:32 WBC (3.8-10.6) k/uL RBC (3.80-5.40) m/uL Hgb (11.4-16.0) gm/dL Hct (34.0-46.0) % Plt Count (150-450) k/uL Neutrophils # (1.3-7.7) k/uL Monocytes # (0-1.0) k/uL ABG pH (7.35-7.45) ABG pO2 (83-108) mmHg ABG HCO3 (21-25) mmol/L ABG Total CO2 (19-24) mmol/L ABG O2 Saturation (94-97) % Chloride (98-107) mmol/L BUN (7-17) mg/dL Creatinine (0.52-1.04) mg/dL Glucose (74-99) mg/dL POC Glucose (mg/dL) 139 H 130 H 132 H (75-99) mg/dL Calcium (8.4-10.2) mg/dL AST (14-36) U/L Total Protein (6.3-8.2) g/dL Albumin (3.5-5.0) g/dL Crossmatch 03/20/19 03/20/19 03/20/19 Range/Units 21:55 23:06 23:55 WBC (3.8-10.6) k/uL RBC (3.80-5.40) m/uL Hgb (11.4-16.0) gm/dL Hct (34.0-46.0) % Plt Count (150-450) k/uL Neutrophils # (1.3-7.7) k/uL Monocytes # (0-1.0) k/uL ABG pH (7.35-7.45) ABG pO2 (83-108) mmHg ABG HCO3 (21-25) mmol/L ABG Total CO2 (19-24) mmol/L ABG O2 Saturation (94-97) % Chloride (98-107) mmol/L BUN (7-17) mg/dL Creatinine (0.52-1.04) mg/dL Glucose (74-99) mg/dL POC Glucose (mg/dL) 130 H 121 H 121 H (75-99) mg/dL Calcium (8.4-10.2) mg/dL AST (14-36) U/L Total Protein (6.3-8.2) g/dL Albumin (3.5-5.0) g/dL Crossmatch 03/21/19 03/21/19 03/21/19 Range/Units 00:56 02:28 02:57 WBC (3.8-10.6) k/uL RBC (3.80-5.40) m/uL Hgb (11.4-16.0) gm/dL Hct (34.0-46.0) % Plt Count (150-450) k/uL Neutrophils # (1.3-7.7) k/uL Monocytes # (0-1.0) k/uL ABG pH (7.35-7.45) ABG pO2 (83-108) mmHg ABG HCO3 (21-25) mmol/L ABG Total CO2 (19-24) mmol/L ABG O2 Saturation (94-97) % Chloride (98-107) mmol/L BUN (7-17) mg/dL Creatinine (0.52-1.04) mg/dL Glucose (74-99) mg/dL POC Glucose (mg/dL) 117 H 114 H 115 H (75-99) mg/dL Calcium (8.4-10.2) mg/dL AST (14-36) U/L Total Protein (6.3-8.2) g/dL Albumin (3.5-5.0) g/dL Crossmatch 03/21/19 03/21/19 03/21/19 Range/Units 04:05 05:07 05:30 WBC 17.0 H (3.8-10.6) k/uL RBC 2.74 L (3.80-5.40) m/uL Hgb 8.5 L (11.4-16.0) gm/dL Hct 24.7 L (34.0-46.0) % Plt Count 62 L (150-450) k/uL Neutrophils # 14.3 H (1.3-7.7) k/uL Monocytes # 1.2 H (0-1.0) k/uL ABG pH (7.35-7.45) ABG pO2 (83-108) mmHg ABG HCO3 (21-25) mmol/L ABG Total CO2 (19-24) mmol/L ABG O2 Saturation (94-97) % Chloride (98-107) mmol/L BUN (7-17) mg/dL Creatinine (0.52-1.04) mg/dL Glucose (74-99) mg/dL POC Glucose (mg/dL) 134 H 133 H (75-99) mg/dL Calcium (8.4-10.2) mg/dL AST (14-36) U/L Total Protein (6.3-8.2) g/dL Albumin (3.5-5.0) g/dL Crossmatch 03/21/19 03/21/19 03/21/19 Range/Units 05:30 06:03 06:52 WBC (3.8-10.6) k/uL RBC (3.80-5.40) m/uL Hgb (11.4-16.0) gm/dL Hct (34.0-46.0) % Plt Count (150-450) k/uL Neutrophils # (1.3-7.7) k/uL Monocytes # (0-1.0) k/uL ABG pH (7.35-7.45) ABG pO2 (83-108) mmHg ABG HCO3 (21-25) mmol/L ABG Total CO2 (19-24) mmol/L ABG O2 Saturation (94-97) % Chloride 108 H (98-107) mmol/L BUN 24 H (7-17) mg/dL Creatinine 1.26 H (0.52-1.04) mg/dL Glucose 123 H (74-99) mg/dL POC Glucose (mg/dL) 122 H 127 H (75-99) mg/dL Calcium (8.4-10.2) mg/dL AST 94 H (14-36) U/L Total Protein 4.4 L (6.3-8.2) g/dL Albumin 2.8 L (3.5-5.0) g/dL Crossmatch - Imaging and Cardiology Chest x-ray: image reviewed Assessment and Plan Assessment: 1. Severe aortic valve stenosis, status post bioprosthetic aortic valve replacement 2. Moderate to severe mitral valve regurgitation, status post mitral valve repair 3. Single-vessel coronary artery disease, status post 1 vessel CABG 4. Decreased LV function, chronic systolic heart failure with preoperative EF 30% 5. History of hypertension, currently hypotensive on IV levo 6. Hyperlipidemia 7. Hypothyroid 8. Osteoarthritis 9. Right internal carotid artery stenosis 50-69% 10. Previous tobacco dependence with preoperative FEV1 93% of predicted 11. Acute postoperative bleeding 12. Postoperative atrial fibrillation, status post clip ligation of left atrial appendage Plan: 1. Continue low-dose aspirin, statin, beta heriberto therapy. Discussed with nursing to give Lopressor despite patient being on IV levo. Will hold Plavix for now secondary to reactive thrombocytopenia. 2. Wean IV levo as tolerated. 3. Wean O2 as tolerated. Encourage incentive spirometry 10 times every hour while awake. 4. Increase activity, ambulate as tolerated. PT/OT/cardiac rehab following. 5. Will monitor daily labs and x-rays. Electrolytes replacement per protocol. No further transfusions at this point. 6. GI/DVT prophylaxis. 7. Insulin management per primary care service. 8. Pain control current medication regimen. No Toradol. 9. Continue mediastinal and left pleural chest tubes for another 24 hours. 10. Continue Lovett for another 24 hours for strict accurate intake and output. 11. May give IV Lasix this afternoon. 12. Discontinue Celeste. Connect Cordis to continue CVP monitoring. 13. More recommendations to follow as patient progresses. Time with Patient: Greater than 30
[2019-03-21] MEDS: DEXTROSE 5% IN WATER 100 ML with AMIODARONE 150 MG IV ONE ×2 (11:08→12:49)
[2019-03-21 12:29] LABS: Glucose,Whole Blood 132 mg/dL (75-99)
[2019-03-21] MEDS ORDERED: FUROSEMIDE 10 MG/ML 2 ML VIAL IV STA (12:29)
--- NOTE | 2019-03-21 13:14 | P.PN ---
Subjective Progress Note Date: 03/21/19 This is a 79-year-old female status post CABG X1, aortic valve replacement with bioprosthetic valve, mitral valve repair in a patient with severe aortic valve stenosis, moderate to severe mitral valve regurgitation, CAD, ischemic cardiomyopathy-preop EF 30%, pulmonary hypertension, hypertension, hypothyro idism and multiple other medical issues. Shortly after returning to ICU postop, she developed increased chest tube ouput of 1.3 L over 1-1/2 hours, returned to the OR and required emergent reexploration of the chest with evacuation of clots, control bleeding, placement of IABP. Mediastinal and left pleural chest tube drainage improved. This morning IABP weaned to 1:3 with plans for discontinuing this morning. Continuies on DIprovan, Levophed, Primacor and insulin drips. Cardiac output 7.4, cardiac index 3.4. Maintained on mechanical ventilation with FiO2 40%/+5 of PEEP. Chest x-ray reporting bilateral consolidation and pleural effusion. Telemetry accelerated junctional. 03/21/2019 Extubated yesterday evening.Maintaining O2 sats in the high 90s on 4 L nasal cannula. Incentive spirometer 800 to 1000. Maintained on insulin and Levophed drips. Recent cardiac output/cardiac index 6.1/2.8 .Developed atrial fibrillation last night, received digoxin. Remains in atrial fibrillation, receiving amiodarone bolus with drip pending. Magnesium 2.2, potassium 4.7. Hemoglobin remains stable at 8.5, platelets 62. creatinine 1.26 .Pain controlled. Objective - Vital Signs Vital signs: Vital Signs Temp 99.1 F 03/21/19 04:00 Pulse 84 03/21/19 09:08 Resp 21 03/21/19 07:00 BP 115/62 03/21/19 06:45 Pulse Ox 97 03/21/19 07:00 Intake & Output 03/20/19 03/21/19 03/21/19 18:59 06:59 18:59 Intake Total 1038.265 8883.677 5.723 Output Total 1145 763 Balance 851.841 566.677 5.723 Weight 120.5 kg 120.5 kg Intake: IV 1328 958 Albumin Human 5% 250 ml 250 250 In Empty Bag 1 bag @ 250 mls/hr IVPB Q1HR PRN Rx#: [id number] CO/CI 170 Lactated Ringers 600 600 Magnesium Sulfate-D5w Pmx 100 1 gm In Dextrose/Water 1 100ml.bag @ 100 mls/hr IVPB Q1H [facility] Rx#: [id number] Sodium Phosphate 10 mmol 100 In Sodium Chloride 0.9% 100 ml @ 50 mls/hr IVPB ONCE ONE Rx#:[id number] pressure bags 108 108 Intake, IV Titration 358.841 91.677 5.723 Amount Insulin Regular 100 unit 55.820 30.443 5.723 In Sodium Chloride 0.9% 100 ml @ Per Protocol IV .Q0M [facility] Rx#:[id number] Milrinone-D5w Pmx 20 mg 95.472 In Dextrose/Water 1 100ml .bag @ Per Protocol IV . Q0M [facility] Rx#:[id number] Norepinephrine 32 mg In 6.495 61.234 Sodium Chloride 0.9% 218 ml @ 0.05 MCG/KG/MIN 2. 745 mls/hr IV .Q24H [facility] Rx#:[id number] Propofol 1,000 mg In 201.054 Empty Bag 1 bag @ Titrate IV .Q0M [facility] Rx#: [id number] Oral 280 Blood Product 310 Rc As-3 Unit 310 [id number] Output: Chest Tube Drainage 620 370 Left Pleural 300 50 Mediastinal 320 320 Urine 525 393 Other: Voiding Method Indwelling Catheter Indwelling Catheter ABP, PAP, CO, CI - Last Documented Arterial Blood Pressure 105/59 Pulmonary Artery Pressure 39/23 Cardiac Output 5.3 Cardiac Index 2.4 - Exam PHYSICAL EXAM: VITAL SIGNS: As above GENERAL: Sitting up in recliner, no acute distress HEENT: Conjunctivae normal. eyes normal. Oral mucosa moist NECK: No JVD. No thyroid enlargement. No LNs CARDIOVASCULAR: S1, S2 irregular. No murmur. RESPIRATION: Breath sounds diminished in the bases. No rhonchi or crackles. No wheezing. Mediastinal and left pleural chest tubes present, draining serosanguineous, ABDOMEN: Soft, nontender . No guarding. No hepatosplenomegaly. no masses palpable. Hypoactive Bowel sounds. LEGS: Generalized edema, positive peripheral pulses, LAUREL hose. PSYCHIATRY: Alert and oriented 3 NERVOUS SYSTEM: Cranial nerves II through XII grossly intact, moves all 4 extremities, mild diffuse generalized weakness. No focal deficits. Strength and sensation grossly intact. Skin: Generalized edema ,no lesions, no rash. No clubbing, no cyanosis. - Labs CBC & Chem 7: 03/21/19 05:30 03/21/19 05:30 Labs: Abnormal Lab Results - Last 24 Hours (Table) 03/13/19 03/20/19 03/20/19 Range/Units 09:00 10:51 12:35 WBC (3.8-10.6) k/uL RBC (3.80-5.40) m/uL Hgb (11.4-16.0) gm/dL Hct (34.0-46.0) % Plt Count (150-450) k/uL Neutrophils # (1.3-7.7) k/uL Monocytes # (0-1.0) k/uL ABG pH 7.49 H (7.35-7.45) ABG pO2 73 L (83-108) mmHg ABG HCO3 28 H (21-25) mmol/L ABG Total CO2 29 H (19-24) mmol/L ABG O2 Saturation (94-97) % Chloride (98-107) mmol/L BUN (7-17) mg/dL Creatinine (0.52-1.04) mg/dL Glucose (74-99) mg/dL POC Glucose (mg/dL) 120 H (75-99) mg/dL Calcium (8.4-10.2) mg/dL AST (14-36) U/L Total Protein (6.3-8.2) g/dL Albumin (3.5-5.0) g/dL Crossmatch See Detail 03/20/19 03/20/19 03/20/19 Range/Units 13:10 15:30 15:30 WBC 14.2 H (3.8-10.6) k/uL RBC 2.71 L (3.80-5.40) m/uL Hgb 8.3 L (11.4-16.0) gm/dL Hct 24.4 L (34.0-46.0) % Plt Count 83 L (150-450) k/uL Neutrophils # (1.3-7.7) k/uL Monocytes # (0-1.0) k/uL ABG pH (7.35-7.45) ABG pO2 (83-108) mmHg ABG HCO3 (21-25) mmol/L ABG Total CO2 (19-24) mmol/L ABG O2 Saturation (94-97) % Chloride 108 H (98-107) mmol/L BUN 24 H (7-17) mg/dL Creatinine 1.22 H (0.52-1.04) mg/dL Glucose 115 H (74-99) mg/dL POC Glucose (mg/dL) 139 H (75-99) mg/dL Calcium 8.0 L (8.4-10.2) mg/dL AST (14-36) U/L Total Protein (6.3-8.2) g/dL Albumin (3.5-5.0) g/dL Crossmatch 03/20/19 03/20/19 03/20/19 Range/Units 15:31 15:57 17:13 WBC (3.8-10.6) k/uL RBC (3.80-5.40) m/uL Hgb (11.4-16.0) gm/dL Hct (34.0-46.0) % Plt Count (150-450) k/uL Neutrophils # (1.3-7.7) k/uL Monocytes # (0-1.0) k/uL ABG pH (7.35-7.45) ABG pO2 (83-108) mmHg ABG HCO3 (21-25) mmol/L ABG Total CO2 (19-24) mmol/L ABG O2 Saturation (94-97) % Chloride (98-107) mmol/L BUN (7-17) mg/dL Creatinine (0.52-1.04) mg/dL Glucose (74-99) mg/dL POC Glucose (mg/dL) 123 H 119 H 128 H (75-99) mg/dL Calcium (8.4-10.2) mg/dL AST (14-36) U/L Total Protein (6.3-8.2) g/dL Albumin (3.5-5.0) g/dL Crossmatch 03/20/19 03/20/19 03/20/19 Range/Units 17:47 18:10 18:56 WBC (3.8-10.6) k/uL RBC (3.80-5.40) m/uL Hgb (11.4-16.0) gm/dL Hct (34.0-46.0) % Plt Count (150-450) k/uL Neutrophils # (1.3-7.7) k/uL Monocytes # (0-1.0) k/uL ABG pH 7.47 H (7.35-7.45) ABG pO2 (83-108) mmHg ABG HCO3 27 H (21-25) mmol/L ABG Total CO2 28 H (19-24) mmol/L ABG O2 Saturation 98.0 H (94-97) % Chloride (98-107) mmol/L BUN (7-17) mg/dL Creatinine (0.52-1.04) mg/dL Glucose (74-99) mg/dL POC Glucose (mg/dL) 140 H 139 H (75-99) mg/dL Calcium (8.4-10.2) mg/dL AST (14-36) U/L Total Protein (6.3-8.2) g/dL Albumin (3.5-5.0) g/dL Crossmatch 03/20/19 03/20/19 03/20/19 Range/Units 20:03 21:32 21:55 WBC (3.8-10.6) k/uL RBC (3.80-5.40) m/uL Hgb (11.4-16.0) gm/dL Hct (34.0-46.0) % Plt Count (150-450) k/uL Neutrophils # (1.3-7.7) k/uL Monocytes # (0-1.0) k/uL ABG pH (7.35-7.45) ABG pO2 (83-108) mmHg ABG HCO3 (21-25) mmol/L ABG Total CO2 (19-24) mmol/L ABG O2 Saturation (94-97) % Chloride (98-107) mmol/L BUN (7-17) mg/dL Creatinine (0.52-1.04) mg/dL Glucose (74-99) mg/dL POC Glucose (mg/dL) 130 H 132 H 130 H (75-99) mg/dL Calcium (8.4-10.2) mg/dL AST (14-36) U/L Total Protein (6.3-8.2) g/dL Albumin (3.5-5.0) g/dL Crossmatch 03/20/19 03/20/19 03/21/19 Range/Units 23:06 23:55 00:56 WBC (3.8-10.6) k/uL RBC (3.80-5.40) m/uL Hgb (11.4-16.0) gm/dL Hct (34.0-46.0) % Plt Count (150-450) k/uL Neutrophils # (1.3-7.7) k/uL Monocytes # (0-1.0) k/uL ABG pH (7.35-7.45) ABG pO2 (83-108) mmHg ABG HCO3 (21-25) mmol/L ABG Total CO2 (19-24) mmol/L ABG O2 Saturation (94-97) % Chloride (98-107) mmol/L BUN (7-17) mg/dL Creatinine (0.52-1.04) mg/dL Glucose (74-99) mg/dL POC Glucose (mg/dL) 121 H 121 H 117 H (75-99) mg/dL Calcium (8.4-10.2) mg/dL AST (14-36) U/L Total Protein (6.3-8.2) g/dL Albumin (3.5-5.0) g/dL Crossmatch 03/21/19 03/21/19 03/21/19 Range/Units 02:28 02:57 04:05 WBC (3.8-10.6) k/uL RBC (3.80-5.40) m/uL Hgb (11.4-16.0) gm/dL Hct (34.0-46.0) % Plt Count (150-450) k/uL Neutrophils # (1.3-7.7) k/uL Monocytes # (0-1.0) k/uL ABG pH (7.35-7.45) ABG pO2 (83-108) mmHg ABG HCO3 (21-25) mmol/L ABG Total CO2 (19-24) mmol/L ABG O2 Saturation (94-97) % Chloride (98-107) mmol/L BUN (7-17) mg/dL Creatinine (0.52-1.04) mg/dL Glucose (74-99) mg/dL POC Glucose (mg/dL) 114 H 115 H 134 H (75-99) mg/dL Calcium (8.4-10.2) mg/dL AST (14-36) U/L Total Protein (6.3-8.2) g/dL Albumin (3.5-5.0) g/dL Crossmatch 03/21/19 03/21/19 03/21/19 Range/Units 05:07 05:30 05:30 WBC 17.0 H (3.8-10.6) k/uL RBC 2.74 L (3.80-5.40) m/uL Hgb 8.5 L (11.4-16.0) gm/dL Hct 24.7 L (34.0-46.0) % Plt Count 62 L (150-450) k/uL Neutrophils # 14.3 H (1.3-7.7) k/uL Monocytes # 1.2 H (0-1.0) k/uL ABG pH (7.35-7.45) ABG pO2 (83-108) mmHg ABG HCO3 (21-25) mmol/L ABG Total CO2 (19-24) mmol/L ABG O2 Saturation (94-97) % Chloride 108 H (98-107) mmol/L BUN 24 H (7-17) mg/dL Creatinine 1.26 H (0.52-1.04) mg/dL Glucose 123 H (74-99) mg/dL POC Glucose (mg/dL) 133 H (75-99) mg/dL Calcium (8.4-10.2) mg/dL AST 94 H (14-36) U/L Total Protein 4.4 L (6.3-8.2) g/dL Albumin 2.8 L (3.5-5.0) g/dL Crossmatch 03/21/19 03/21/19 03/21/19 Range/Units 06:03 06:52 08:16 WBC (3.8-10.6) k/uL RBC (3.80-5.40) m/uL Hgb (11.4-16.0) gm/dL Hct (34.0-46.0) % Plt Count (150-450) k/uL Neutrophils # (1.3-7.7) k/uL Monocytes # (0-1.0) k/uL ABG pH (7.35-7.45) ABG pO2 (83-108) mmHg ABG HCO3 (21-25) mmol/L ABG Total CO2 (19-24) mmol/L ABG O2 Saturation (94-97) % Chloride (98-107) mmol/L BUN (7-17) mg/dL Creatinine (0.52-1.04) mg/dL Glucose (74-99) mg/dL POC Glucose (mg/dL) 122 H 127 H 149 H (75-99) mg/dL Calcium (8.4-10.2) mg/dL AST (14-36) U/L Total Protein (6.3-8.2) g/dL Albumin (3.5-5.0) g/dL Crossmatch 03/21/19 Range/Units 10:22 WBC (3.8-10.6) k/uL RBC (3.80-5.40) m/uL Hgb (11.4-16.0) gm/dL Hct (34.0-46.0) % Plt Count (150-450) k/uL Neutrophils # (1.3-7.7) k/uL Monocytes # (0-1.0) k/uL ABG pH (7.35-7.45) ABG pO2 (83-108) mmHg ABG HCO3 (21-25) mmol/L ABG Total CO2 (19-24) mmol/L ABG O2 Saturation (94-97) % Chloride (98-107) mmol/L BUN (7-17) mg/dL Creatinine (0.52-1.04) mg/dL Glucose (74-99) mg/dL POC Glucose (mg/dL) 140 H (75-99) mg/dL Calcium (8.4-10.2) mg/dL AST (14-36) U/L Total Protein (6.3-8.2) g/dL Albumin (3.5-5.0) g/dL Crossmatch Assessment and Plan Assessment: -Status post CABG 1 with Aortic and Mitral valve repair secondary to severe aortic valve stenosis and moderate to severe mitral valve regurgitation. Bioprosthetic aortic valve. -Acute postoperative bleeding, unexpected outcome -Acute blood loss anemia secondary to the above, status post transfusions of multiple products; RBCs, cryoprecipitate, FFP, platelets -Postoperative hypotension, unexpected outcome, pressor dependent -Thrombocytopenia, reactive, Plavix currently on hold -Postoperative atrial fibrillation -Secondary pulmonary hypertension -Chronic systolic CHF, Ischemic cardiomyopathy, preop EF 30% -Hyperlipidemia -Hypertension, history of -Hypothyroidism -Right ICA stenosis 50-70% -History of nicotine dependence Plan: Continue current medication regime , beta heriberto, statin, aspirin monitoring and symptomatic treatment.Continue nebulized bronchodilators. Aggressive pulmonary toileting with incentive spirometer reinforced .electrolyte supplements as per replacement protocols. Close monitoring of hemoglobin, david telets, renal function, electrolytes with repeat labs ordered for a.m. Further recommendations to follow. The impression and plan of care has been dictated as directed. : I performed a history and examination of this patient, discussed the same with the dictator. I agree with the dictator's note ,documented as a scribe. Any additional findings or plans will be noted. Time taken: 35 minutes.
--- NOTE | 2019-03-21 13:53 | XR ---
EXAMINATION TYPE: XR chest 1V portable DATE OF EXAM: 03/21/2019 COMPARISON: Prior chest x-ray 03/20/2019 HISTORY: Postop cardiac surgery, extubated TECHNIQUE: Single frontal view of the chest is obtained. FINDINGS: Interval removal of endotracheal and orogastric tube. Right jugular central venous sheath and coaxial [place] catheter, mediastinal drain, left chest tube remain in place. Patient is rotate d and post median sternotomy. Epicardial pacing leads are present. Intra-aortic balloon pump has been removed. Patchy bibasilar subsegmental atelectatic changes are suspected. Interstitium is mildly inc reased. Aorta is dense. Injury appendage clipping noted. IMPRESSION: Interval extubation and removal of intra-aortic balloon pump. There may be component of volume overload, pulmonary venous hypertension and interstitial edema, basilar atelectasis and possib le associated small effusions.
[2019-03-21] MEDS: NOREPINEPHRINE 32 MG in SODIUM CHLORIDE 0.9% 218 ML IV SCH (14:08)
[2019-03-21 14:18] LABS: Glucose,Whole Blood 178 mg/dL (75-99)
--- NOTE | 2019-03-21 15:25 | P.PN ---
Subjective This is Marily Basilio PA-C dictating a progress note on this patient The patient was interviewed and examined by me as well as by Dr. Geiger Case discussed with Dr. Geiger and he agrees with the plan of care IMPRESSION / ASSESSMENT: Aortic stenosis status post aortic valve replacement mitral regurgitation status post mitral valve repair CAD status post CABG 1 Ischemic cardiomyopathy Hypertension, currently hypotensive and on pressors Dyslipidemia PLAN: Continue current medication regimen, maximizing medical treatment for CAD and cardiomyopathy HPI/interval history This 79-year-old female who is postop day 2 status post aortic valve replacement, mitral valve repair, CABG 1, and left atrial appendage ligation. She had postoperative bleeding which required emergent reexploration, or aortic balloon pump placement, and multiple transfusions. She was excessively extubated yesterday. She went into atrial fibrillation and was started on digoxin. She is stil on pressors. Patient seen and examined sitting up in her chair. Is complaining of postoperative pain. States her breathing has been "ok", she is using incentive spirometry. EXAMINATION Temperature 100.0F, pulse 72, respirations 17, blood pressure 108/63, oxygen saturation 100% on 2 L nasal cannula Patient seen and examined up in her chair, appears slightly uncomfortable but in no acute distress Heart is irregular, no murmurs appreciated Lungs slightly diminished but clear bilaterally No lower extremity edema noted REVIEW OF LABS, ECG WBC 17.0, hemoglobin 8.5, platelet count 62, potassium 4.1, BUN 24, creatinine 1.22 Rhythm strips reveal paroxysmal atrial fibrillation with mild RVR to a rate of 103 Objective - Vital Signs Vital signs: Vital Signs Temp 100.0 F H 03/21/19 12:00 Pulse 62 03/21/19 14:00 Resp 23 03/21/19 14:00 BP 101/56 03/21/19 14:00 Pulse Ox 99 03/21/19 14:00 Intake & Output 03/20/19 03/21/19 03/21/19 18:59 06:59 18:59 Intake Total 2224.380 0271.677 1208.442 Output Total 1145 763 545 Balance 851.841 566.677 663.442 Weight 120.5 kg 120.5 kg Intake: IV 1328 958 453 Albumin Human 5% 250 ml 250 250 In Empty Bag 1 bag @ 250 mls/hr IVPB Q1HR PRN Rx#: [id number] CO/CI 170 40 Lactated Ringers 600 600 350 Magnesium Sulfate-D5w Pmx 100 1 gm In Dextrose/Water 1 100ml.bag @ 100 mls/hr IVPB Q1H [facility] Rx#: [id number] Sodium Phosphate 10 mmol 100 In Sodium Chloride 0.9% 100 ml @ 50 mls/hr IVPB ONCE ONE Rx#:[id number] pressure bags 108 108 63 Intake, IV Titration 358.841 91.677 275.442 Amount Dextrose 5% in Water 100 200 ml @ 618 mls/hr IV .Q10M ONE with Amiodarone 150 mg Rx#:[id number] Insulin Regular 100 unit 55.820 30.443 22.422 In Sodium Chloride 0.9% 100 ml @ Per Protocol IV .Q0M [facility] Rx#:[id number] Milrinone-D5w Pmx 20 mg 95.472 In Dextrose/Water 1 100ml .bag @ Per Protocol IV . Q0M [facility] Rx#:[id number] Norepinephrine 32 mg In 6.495 61.234 53.02 Sodium Chloride 0.9% 218 ml @ 0.05 MCG/KG/MIN 2. 745 mls/hr IV .Q24H [facility] Rx#:[id number] Propofol 1,000 mg In 201.054 Empty Bag 1 bag @ Titrate IV .Q0M [facility] Rx#: [id number] Oral 280 480 Blood Product 310 Rc As-3 Unit 310 [id number] Output: Chest Tube Drainage 620 370 230 Left Pleural 300 50 50 Mediastinal 320 320 180 Urine 525 393 315 Other: Voiding Method Indwelling Catheter Indwelling Catheter Indwelling Catheter ABP, PAP, CO, CI - Last Documented Arterial Blood Pressure 119/54 Pulmonary Artery Pressure 32/14 Cardiac Output 4.8 Cardiac Index 2.2 - Labs CBC & Chem 7: 03/21/19 05:30 03/21/19 05:30 Labs: Abnormal Lab Results - Last 24 Hours (Table) 03/20/19 03/20/19 03/20/19 Range/Units 10:51 15:30 15:30 WBC 14.2 H (3.8-10.6) k/uL RBC 2.71 L (3.80-5.40) m/uL Hgb 8.3 L (11.4-16.0) gm/dL Hct 24.4 L (34.0-46.0) % Plt Count 83 L (150-450) k/uL Neutrophils # (1.3-7.7) k/uL Monocytes # (0-1.0) k/uL ABG pH 7.49 H (7.35-7.45) ABG pO2 73 L (83-108) mmHg ABG HCO3 28 H (21-25) mmol/L ABG Total CO2 29 H (19-24) mmol/L ABG O2 Saturation (94-97) % Chloride 108 H (98-107) mmol/L BUN 24 H (7-17) mg/dL Creatinine 1.22 H (0.52-1.04) mg/dL Glucose 115 H (74-99) mg/dL POC Glucose (mg/dL) (75-99) mg/dL Calcium 8.0 L (8.4-10.2) mg/dL AST (14-36) U/L Total Protein (6.3-8.2) g/dL Albumin (3.5-5.0) g/dL 03/20/19 03/20/19 03/20/19 Range/Units 15:31 15:57 17:13 WBC (3.8-10.6) k/uL RBC (3.80-5.40) m/uL Hgb (11.4-16.0) gm/dL Hct (34.0-46.0) % Plt Count (150-450) k/uL Neutrophils # (1.3-7.7) k/uL Monocytes # (0-1.0) k/uL ABG pH (7.35-7.45) ABG pO2 (83-108) mmHg ABG HCO3 (21-25) mmol/L ABG Total CO2 (19-24) mmol/L ABG O2 Saturation (94-97) % Chloride (98-107) mmol/L BUN (7-17) mg/dL Creatinine (0.52-1.04) mg/dL Glucose (74-99) mg/dL POC Glucose (mg/dL) 123 H 119 H 128 H (75-99) mg/dL Calcium (8.4-10.2) mg/dL AST (14-36) U/L Total Protein (6.3-8.2) g/dL Albumin (3.5-5.0) g/dL 03/20/19 03/20/19 03/20/19 Range/Units 17:47 18:10 18:56 WBC (3.8-10.6) k/uL RBC (3.80-5.40) m/uL Hgb (11.4-16.0) gm/dL Hct (34.0-46.0) % Plt Count (150-450) k/uL Neutrophils # (1.3-7.7) k/uL Monocytes # (0-1.0) k/uL ABG pH 7.47 H (7.35-7.45) ABG pO2 (83-108) mmHg ABG HCO3 27 H (21-25) mmol/L ABG Total CO2 28 H (19-24) mmol/L ABG O2 Saturation 98.0 H (94-97) % Chloride (98-107) mmol/L BUN (7-17) mg/dL Creatinine (0.52-1.04) mg/dL Glucose (74-99) mg/dL POC Glucose (mg/dL) 140 H 139 H (75-99) mg/dL Calcium (8.4-10.2) mg/dL AST (14-36) U/L Total Protein (6.3-8.2) g/dL Albumin (3.5-5.0) g/dL 03/20/19 03/20/19 03/20/19 Range/Units 20:03 21:32 21:55 WBC (3.8-10.6) k/uL RBC (3.80-5.40) m/uL Hgb (11.4-16.0) gm/dL Hct (34.0-46.0) % Plt Count (150-450) k/uL Neutrophils # (1.3-7.7) k/uL Monocytes # (0-1.0) k/uL ABG pH (7.35-7.45) ABG pO2 (83-108) mmHg ABG HCO3 (21-25) mmol/L ABG Total CO2 (19-24) mmol/L ABG O2 Saturation (94-97) % Chloride (98-107) mmol/L BUN (7-17) mg/dL Creatinine (0.52-1.04) mg/dL Glucose (74-99) mg/dL POC Glucose (mg/dL) 130 H 132 H 130 H (75-99) mg/dL Calcium (8.4-10.2) mg/dL AST (14-36) U/L Total Protein (6.3-8.2) g/dL Albumin (3.5-5.0) g/dL 03/20/19 03/20/19 03/21/19 Range/Units 23:06 23:55 00:56 WBC (3.8-10.6) k/uL RBC (3.80-5.40) m/uL Hgb (11.4-16.0) gm/dL Hct (34.0-46.0) % Plt Count (150-450) k/uL Neutrophils # (1.3-7.7) k/uL Monocytes # (0-1.0) k/uL ABG pH (7.35-7.45) ABG pO2 (83-108) mmHg ABG HCO3 (21-25) mmol/L ABG Total CO2 (19-24) mmol/L ABG O2 Saturation (94-97) % Chloride (98-107) mmol/L BUN (7-17) mg/dL Creatinine (0.52-1.04) mg/dL Glucose (74-99) mg/dL POC Glucose (mg/dL) 121 H 121 H 117 H (75-99) mg/dL Calcium (8.4-10.2) mg/dL AST (14-36) U/L Total Protein (6.3-8.2) g/dL Albumin (3.5-5.0) g/dL 03/21/19 03/21/19 03/21/19 Range/Units 02:28 02:57 04:05 WBC (3.8-10.6) k/uL RBC (3.80-5.40) m/uL Hgb (11.4-16.0) gm/dL Hct (34.0-46.0) % Plt Count (150-450) k/uL Neutrophils # (1.3-7.7) k/uL Monocytes # (0-1.0) k/uL ABG pH (7.35-7.45) ABG pO2 (83-108) mmHg ABG HCO3 (21-25) mmol/L ABG Total CO2 (19-24) mmol/L ABG O2 Saturation (94-97) % Chloride (98-107) mmol/L BUN (7-17) mg/dL Creatinine (0.52-1.04) mg/dL Glucose (74-99) mg/dL POC Glucose (mg/dL) 114 H 115 H 134 H (75-99) mg/dL Calcium (8.4-10.2) mg/dL AST (14-36) U/L Total Protein (6.3-8.2) g/dL Albumin (3.5-5.0) g/dL 03/21/19 03/21/19 03/21/19 Range/Units 05:07 05:30 05:30 WBC 17.0 H (3.8-10.6) k/uL RBC 2.74 L (3.80-5.40) m/uL Hgb 8.5 L (11.4-16.0) gm/dL Hct 24.7 L (34.0-46.0) % Plt Count 62 L (150-450) k/uL Neutrophils # 14.3 H (1.3-7.7) k/uL Monocytes # 1.2 H (0-1.0) k/uL ABG pH (7.35-7.45) ABG pO2 (83-108) mmHg ABG HCO3 (21-25) mmol/L ABG Total CO2 (19-24) mmol/L ABG O2 Saturation (94-97) % Chloride 108 H (98-107) mmol/L BUN 24 H (7-17) mg/dL Creatinine 1.26 H (0.52-1.04) mg/dL Glucose 123 H (74-99) mg/dL POC Glucose (mg/dL) 133 H (75-99) mg/dL Calcium (8.4-10.2) mg/dL AST 94 H (14-36) U/L Total Protein 4.4 L (6.3-8.2) g/dL Albumin 2.8 L (3.5-5.0) g/dL 03/21/19 03/21/19 03/21/19 Range/Units 06:03 06:52 08:16 WBC (3.8-10.6) k/uL RBC (3.80-5.40) m/uL Hgb (11.4-16.0) gm/dL Hct (34.0-46.0) % Plt Count (150-450) k/uL Neutrophils # (1.3-7.7) k/uL Monocytes # (0-1.0) k/uL ABG pH (7.35-7.45) ABG pO2 (83-108) mmHg ABG HCO3 (21-25) mmol/L ABG Total CO2 (19-24) mmol/L ABG O2 Saturation (94-97) % Chloride (98-107) mmol/L BUN (7-17) mg/dL Creatinine (0.52-1.04) mg/dL Glucose (74-99) mg/dL POC Glucose (mg/dL) 122 H 127 H 149 H (75-99) mg/dL Calcium (8.4-10.2) mg/dL AST (14-36) U/L Total Protein (6.3-8.2) g/dL Albumin (3.5-5.0) g/dL 03/21/19 03/21/19 03/21/19 Range/Units 10:22 12:17 14:07 WBC (3.8-10.6) k/uL RBC (3.80-5.40) m/uL Hgb (11.4-16.0) gm/dL Hct (34.0-46.0) % Plt Count (150-450) k/uL Neutrophils # (1.3-7.7) k/uL Monocytes # (0-1.0) k/uL ABG pH (7.35-7.45) ABG pO2 (83-108) mmHg ABG HCO3 (21-25) mmol/L ABG Total CO2 (19-24) mmol/L ABG O2 Saturation (94-97) % Chloride (98-107) mmol/L BUN (7-17) mg/dL Creatinine (0.52-1.04) mg/dL Glucose (74-99) mg/dL POC Glucose (mg/dL) 140 H 132 H 178 H (75-99) mg/dL Calcium (8.4-10.2) mg/dL AST (14-36) U/L Total Protein (6.3-8.2) g/dL Albumin (3.5-5.0) g/dL
[2019-03-21 16:22] LABS: Glucose,Whole Blood 164 mg/dL (75-99)
[2019-03-21] MEDS: AMIODARONE 300 MG in DEXTROSE 5% IN WATER 250 ML IV SCH ×2 (18:14)
[2019-03-21 18:20] LABS: Glucose,Whole Blood 153 mg/dL (75-99)
[2019-03-21 20:39] LABS: Glucose,Whole Blood 129 mg/dL (75-99)
[2019-03-21] MEDS: SENNOSIDES-DOCUSATE SODIUM 1 EACH TAB PO SCH (20:43)
[2019-03-21 22:06] LABS: Glucose,Whole Blood 120 mg/dL (75-99)
[2019-03-22] MEDS: HEPARIN SODIUM,PORCINE 5,000 UNIT/ML 1 ML VIAL SQ SCH (00:08)
[2019-03-22 00:24] LABS: Glucose,Whole Blood 125 mg/dL (75-99)
[2019-03-22 02:12] LABS: Glucose,Whole Blood 125 mg/dL (75-99)
[2019-03-22] MEDS: LACTATED RINGERS 1,000 ML IV SCH (02:46)
[2019-03-22] MEDS: AMIODARONE 300 MG in DEXTROSE 5% IN WATER 250 ML IV SCH ×2 (02:47)
[2019-03-22] MEDS: HYDROcodone/APAP 5-325MG 1 EACH TAB PO PRN ×3 (03:31→21:02)
[2019-03-22 04:33] LABS: Glucose,Whole Blood 130 mg/dL (75-99)
[2019-03-22 04:36] LABS: Basophils % (A) 0 %; Eosinophils # (A) 0.1 k/uL (0-0.7); Eosinophils % (A) 0 %; HCT 23.4 % (34.0-46.0); HGB 7.8 gm/dL (11.4-16.0); Lymphocytes # (A) 1.9 k/uL (1.0-4.8); Lymphocytes % (A) 11 %; MCH 30.1 pg (25.0-35.0); MCHC 33.2 g/dL (31.0-37.0); MCV 90.5 fL (80.0-100.0); Mean Platelet Volume 9.8; Monocytes # (A) 1.2 k/uL (0-1.0); Monocytes % (A) 7 %; Neutrophils # (A) 13.3 k/uL (1.3-7.7); Neutrophils % (A) 80 %; RBC 2.58 m/uL (3.80-5.40); RDW 15.9 % (11.5-15.5); WBC 16.7 k/uL (3.8-10.6)
[2019-03-22 04:40] LABS: Platelet Count 57 k/uL (150-450)
[2019-03-22 04:45] LABS: Albumin 2.6 g/dL (3.5-5.0); Calcium 8.2 mg/dL (8.4-10.2); Phosphorus 3.7 mg/dL (2.5-4.5); Potassium 4.8 mmol/L (3.5-5.1); Total Bilirubin 1.1 mg/dL (0.2-1.3); Total Protein 4.3 g/dL (6.3-8.2)
[2019-03-22] MEDS: PANTOPRAZOLE 40 MG TABLET PO SCH (06:18)
[2019-03-22] MEDS: LEVOTHYROXINE 50 MCG TAB PO SCH (06:18)
[2019-03-22 06:23] LABS: Glucose,Whole Blood 149 mg/dL (75-99)
[2019-03-22] MEDS: ASCORBIC ACID 500 MG TAB PO SCH ×2 (06:51→17:24)
[2019-03-22] MEDS: FERROUS SULFATE 325 MG TAB PO SCH ×2 (06:51→17:24)
[2019-03-22] MEDS: SODIUM CHLORIDE 0.9% 500 ML 500 ML IV SCH (07:00)
--- NOTE | 2019-03-22 07:37 | XR ---
EXAMINATION TYPE: XR chest 1V portable DATE OF EXAM: 03/22/2019 CLINICAL HISTORY: Post open cardiac surgery progress study. TECHNIQUE: Single AP portable upright view of the chest is obtained. COMPARISON: Chest x-ray from one day earlier FINDINGS: There is stable right internal jugular [place] catheter, mediastinal drainage catheter, and left-sided chest tube. Overlying Sternal wires and mediastinal clips with left sided cardiac clos ure device are all redemonstrated. Persistent patchy bibasilar opacities. Upper lungs are clear witho ut pneumothorax. Cardiac silhouette size remains enlarged. Osseous structures are intact. IMPRESSION: Overall stable findings, cardiomegaly with mild central vascular congestion and small t o tiny bilateral pleural effusions and bibasilar acute infiltrate and/or atelectasis are all redemons trated. No significant change from one day earlier.
--- NOTE | 2019-03-22 07:54 | P.PN ---
Subjective Progress Note Date: 03/22/19 Principal diagnosis: Severe aortic valve stenosis, moderate to severe mitral valve regurgitation, single-vessel coronary artery disease, and a decreased LV function, chronic systolic heart failure with a preoperative ejection fraction of 30%. History of hypertension, hyperlipidemia, hypothyroid, osteoarthritis, chronic renal failure with baseline creatinine 1.3-1.6, right internal carotid artery stenosis 50-70%, previous tobacco dependance with preoperative FEV1 93% of predicted. POD #3 aortic valve replacement with a #23 mm Avalus bioprosthetic Medtronic aortic valve, mitral valve repair with a #30 mm Carbomedics AnnuloFlex band. Coronary artery bypass grafting 1 vessel with a reverse greater saphenous vein off the aorta to the circumflex coronary artery and a clip ligation of the left atrial appendage with a 35 mm Atriclip. Intraoperative transesophageal echoca rdiogram. Acute postoperative bleeding, an unexpected outcome Reactive thrombocytopenia, expected POD #3 Emergent re-exploration of the chest, evacuation of clots and control of bleed. Placement of intra-aortic balloon pump. Post operative atrial fibrillation, unexpected. Transaminitis, unexpected. The patient is currently sitting up in the recliner in the intensive care unit in no acute distress. States her pain is controlled on current medication regimen, denies shortness of breath. Currently in sinus rhythm. Remains on IV levo but being weaned down. Gatzke and mediastinal/left pleural chest tubes remain present. No new concerns. Objective - Vital Signs Vital signs: Vital Signs Temp 98.4 F 03/22/19 00:00 Pulse 62 03/22/19 07:00 Resp 28 H 03/22/19 07:00 BP 108/58 03/22/19 05:00 Pulse Ox 99 03/22/19 07:00 Intake & Output 03/21/19 03/22/19 03/22/19 18:59 06:59 18:59 Intake Total 8403.509 6312.571 59 Output Total 990 670 45 Balance 665.289 772.571 14 Weight 120.5 kg 122.7 kg Intake: IV 739 708 59 CO/CI 90 Lactated Ringers 550 600 50 pressure bags 99 108 9 Intake, IV Titration 436.289 254.571 Amount Amiodarone 300 mg In 231.75 Dextrose 5% in Water 250 ml @ 0.5 MG/MIN 25 mls/hr IV .Q10H [facility] Rx#: [id number] Amiodarone 360 mg In 132 Dextrose 5% in Water 200 ml @ 1 MG/MIN 33.333 mls/ hr IV .Q6H [facility] Rx#: [id number] Dextrose 5% in Water 100 200 ml @ 618 mls/hr IV .Q10M [facility] with Amiodarone 150 mg Rx#:[id number] Insulin Regular 100 unit 43.329 16.270 In Sodium Chloride 0.9% 100 ml @ Per Protocol IV .Q0M [facility] Rx#:[id number] Norepinephrine 32 mg In 60.96 6.551 Sodium Chloride 0.9% 218 ml @ 0.05 MCG/KG/MIN 2. 745 mls/hr IV .Q24H [facility] Rx#:[id number] Oral 480 480 Output: Chest Tube Drainage 300 307 Left Pleural 100 90 Mediastinal 200 217 Urine 690 363 45 Other: Voiding Method Indwelling Catheter Indwelling Catheter ABP, PAP, CO, CI - Last Documented Arterial Blood Pressure 122/52 Pulmonary Artery Pressure 43/17 Cardiac Output 4.7 Cardiac Index 2.1 - Constitutional General appearance: Present: cooperative, no acute distress, obese - Respiratory Details: Lungs sounds diminished bilaterally with expiratory wheezes. Respirations even, non-labored on 2 LPM NC with oxygen saturation 96%. Able to achieve 1000 mL on incentive spirometry. Strong cough. Mediastinal chest tube connected to continuous wall suction, 105 mL serosanguinous drainage overnight, 350 mL in the last 24 hours. Left pleural chest tube to continuous wall suction, 30 mL serous drainage overnight, 150 mL in the last 24 hours. No air leaks present. - Cardiovascular Details: S1/S2 present. Regular rate and rhythm, sinus rhythm on telemetry. Sternum stable. A/V epicardial pacemaker wires present, connected to generator with generator turned off. Palpable peripheral pulses bilaterally. Generalized edema present. Right internal Gatzke/Cordis, right radial arterial line present. Last CO/CI 4.7/2.1 on approximately 3 mcg/kg of levo. No calf pain or tenderness noted. Heart hugger in place with patient demonstrating appropriate use. Antiembolism stockings, SCDs present. - Gastrointestinal Gastrointestinal Comment(s): Abdomen soft, nontender, nondistended. Hypoactive bowel sounds present 4 quadrants. Tolerating diet. Positive flatus, negative bowel movement. - Genitourinary Genitourinary Comment(s): Lovett present draining clear, yellow urine. Output 20-35 mL/h overnight, diuresis of 400 mL after IV lasix given yesterday. - Integumentary Integumentary Comment(s): Skin is warm and dry with evidence of good perfusion. Anterior chest incision well approximated and covered with dry intact dressing. - Neurologic Neurologic: Present: CNII-XII intact - Musculoskeletal Musculoskeletal: Present: gait normal, strength equal bilaterally - Psychiatric Psychiatric: Present: A&O x's 3, appropriate affect, intact judgment & insight - Allied health notes Allied health notes reviewed: nursing - Labs CBC & Chem 7: 03/22/19 04:18 03/22/19 04:18 Labs: Abnormal Lab Results - Last 24 Hours (Table) 03/21/19 03/21/19 03/21/19 Range/Units 05:30 08:16 10:22 WBC 17.0 H (3.8-10.6) k/uL RBC 2.74 L (3.80-5.40) m/uL Hgb 8.5 L (11.4-16.0) gm/dL Hct 24.7 L (34.0-46.0) % RDW (11.5-15.5) % Plt Count 62 L (150-450) k/uL Neutrophils # 14.3 H (1.3-7.7) k/uL Monocytes # 1.2 H (0-1.0) k/uL Sodium (137-145) mmol/L BUN (7-17) mg/dL Creatinine (0.52-1.04) mg/dL Glucose (74-99) mg/dL POC Glucose (mg/dL) 149 H 140 H (75-99) mg/dL Calcium (8.4-10.2) mg/dL AST (14-36) U/L ALT (9-52) U/L Total Protein (6.3-8.2) g/dL Albumin (3.5-5.0) g/dL 03/21/19 03/21/19 03/21/19 Range/Units 12:17 14:07 16:10 WBC (3.8-10.6) k/uL RBC (3.80-5.40) m/uL Hgb (11.4-16.0) gm/dL Hct (34.0-46.0) % RDW (11.5-15.5) % Plt Count (150-450) k/uL Neutrophils # (1.3-7.7) k/uL Monocytes # (0-1.0) k/uL Sodium (137-145) mmol/L BUN (7-17) mg/dL Creatinine (0.52-1.04) mg/dL Glucose (74-99) mg/dL POC Glucose (mg/dL) 132 H 178 H 164 H (75-99) mg/dL Calcium (8.4-10.2) mg/dL AST (14-36) U/L ALT (9-52) U/L Total Protein (6.3-8.2) g/dL Albumin (3.5-5.0) g/dL 03/21/19 03/21/19 03/21/19 Range/Units 18:09 20:27 21:54 WBC (3.8-10.6) k/uL RBC (3.80-5.40) m/uL Hgb (11.4-16.0) gm/dL Hct (34.0-46.0) % RDW (11.5-15.5) % Plt Count (150-450) k/uL Neutrophils # (1.3-7.7) k/uL Monocytes # (0-1.0) k/uL Sodium (137-145) mmol/L BUN (7-17) mg/dL Creatinine (0.52-1.04) mg/dL Glucose (74-99) mg/dL POC Glucose (mg/dL) 153 H 129 H 120 H (75-99) mg/dL Calcium (8.4-10.2) mg/dL AST (14-36) U/L ALT (9-52) U/L Total Protein (6.3-8.2) g/dL Albumin (3.5-5.0) g/dL 03/22/19 03/22/19 03/22/19 Range/Units 00:12 02:01 04:18 WBC 16.7 H (3.8-10.6) k/uL RBC 2.58 L (3.80-5.40) m/uL Hgb 7.8 L (11.4-16.0) gm/dL Hct 23.4 L (34.0-46.0) % RDW 15.9 H (11.5-15.5) % Plt Count 57 L (150-450) k/uL Neutrophils # 13.3 H (1.3-7.7) k/uL Monocytes # 1.2 H (0-1.0) k/uL Sodium (137-145) mmol/L BUN (7-17) mg/dL Creatinine (0.52-1.04) mg/dL Glucose (74-99) mg/dL POC Glucose (mg/dL) 125 H 125 H (75-99) mg/dL Calcium (8.4-10.2) mg/dL AST (14-36) U/L ALT (9-52) U/L Total Protein (6.3-8.2) g/dL Albumin (3.5-5.0) g/dL 03/22/19 03/22/19 03/22/19 Range/Units 04:18 04:22 06:13 WBC (3.8-10.6) k/uL RBC (3.80-5.40) m/uL Hgb (11.4-16.0) gm/dL Hct (34.0-46.0) % RDW (11.5-15.5) % Plt Count (150-450) k/uL Neutrophils # (1.3-7.7) k/uL Monocytes # (0-1.0) k/uL Sodium 133 L (137-145) mmol/L BUN 30 H (7-17) mg/dL Creatinine 1.37 H (0.52-1.04) mg/dL Glucose 122 H (74-99) mg/dL POC Glucose (mg/dL) 130 H 149 H (75-99) mg/dL Calcium 8.2 L (8.4-10.2) mg/dL AST 385 H (14-36) U/L ALT 289 H (9-52) U/L Total Protein 4.3 L (6.3-8.2) g/dL Albumin 2.6 L (3.5-5.0) g/dL - Imaging and Cardiology Chest x-ray: image reviewed Assessment and Plan Assessment: 1. Severe aortic valve stenosis, status post bioprosthetic aortic valve replacement 2. Moderate to severe mitral valve regurgitation, status post mitral valve repair 3. Single-vessel coronary artery disease, status post 1 vessel CABG 4. Decreased LV function, chronic systolic heart failure, ischemic cardio myopathy with preoperative EF 30%, EF improved to 40-45% post surgery 5. History of hypertension, currently hypotensive on IV levo 6. Hyperlipidemia 7. Hypothyroid 8. Osteoarthritis 9. Right internal carotid artery stenosis 50-69% 10. Chronic renal failure, baseline creatinine 1.3-1.6 11. Previous tobacco dependence with preoperative FEV1 93% of predicted 12. Acute postoperative bleeding 13. Thrombocytopenia, reactive 14. Postoperative atrial fibrillation, status post clip ligation of left atrial appendage 15. Transaminitis Plan: 1. Continue low-dose aspirin, beta heriberto therapy. Discussed with nursing to give Lopressor despite patient being on IV levo. Will hold Plavix for now secondary to reactive thrombocytopenia, hold statin secondary to transaminitis. 2. Wean IV levo as tolerated. 3. Discontinue amio secondary to elevated liver enzymes. 4. Wean O2 as tolerated. Encourage incentive spirometry 10 times every hour while awake. 5. Increase activity, ambulate as tolerated. PT/OT/cardiac rehab following. 6. Will monitor daily labs and x-rays. Electrolytes replacement per protocol. No further transfusions at this point. 7. GI/DVT prophylaxis. DC SQ heparin, switch to Arixtra despite HIT negative. 8. Insulin management per primary care service. 9. Pain control current medication regimen. No Toradol. 10. Will keep mediastinal, left pleural chest tubes for another 24 hours. 11. Continue Lovett for another 24 hours for strict accurate intake and output. 12. Will give IV Lasix 20 mg BID. 13. Discontinue Gatzke. Connect Cordis to continue CVP monitoring, may discontinue cordis once peripheral line obtained, order placed for midline catheter. 14. Iron, vitamin C added. 15. More recommendations to follow as patient progresses. Time with Patient: Greater than 30
[2019-03-22 08:17] LABS: Glucose,Whole Blood 131 mg/dL (75-99)
[2019-03-22] MEDS: IPRATROPIUM-ALBUTEROL 3 ML NEB INHALATION SCH ×4 (08:38→20:44)
[2019-03-22] MEDS: FONDAPARINUX 2.5 MG/0.5 ML SYRINGE SQ SCH (08:50)
[2019-03-22] MEDS: ASPIRIN 81 MG PO SCH (08:51)
[2019-03-22] MEDS: METOPROLOL TARTRATE 12.5 MG TAB PO SCH ×2 (08:51→21:02)
[2019-03-22] MEDS: CHOLECALCIFEROL 1,000 UNIT TAB PO SCH (08:51)
[2019-03-22] MEDS: FUROSEMIDE 10 MG/ML 2 ML VIAL IV SCH ×2 (08:52→21:03)
[2019-03-22] MEDS: MUPIROCIN 2% OINT 22 GM TUBE NASAL SCH ×2 (09:07→21:05)
--- NOTE | 2019-03-22 09:51 | P.PN ---
Subjective Progress Note Date: 03/22/19 Principal diagnosis: Severe aortic valve stenosis and regurgitation, moderate to severe mitral regurgitation, 1 vessel coronary artery bypass This is a 79-year-old white female patient of Dr. Mati Vale, with a known history of aortic stenosis and regurgitation, hypertension, hyperlipidemia, hypothyroidism, moderate noncritical carotid artery stenosis, who was found to have significant decrease in LV function based on her echocardiogram in December 2018 with systolic/diastolic dysfunction. Recent underwent transesophageal echocardiogram on 02/05/2019 showing sclerotic and calcific aortic valve with severe aortic stenosis with area of the aortic valve calculated in the range of 1-1.1. There was moderate degree of mitral regurgitation, severely impaired left ventricle systolic function with estimated ejection fraction of 30%, and no evidence of thrombus in the left atrial appendage. Catheterization showed diffusely diseased LAD distally, RCA was dominant and disease free, circumflex had a 60-70% mid lesion. Yesterday on 03/19/2019 patient underwent aortic valve replacement with a #23 mm a villous hypostatic Medtronic aortic valve, mitral valve repair with a #30 mm CarboMedics annular flex band, and single-vessel coronary artery bypass grafting with reverse SVG to the circumflex and ligation of the left atrial appendage with a #35 mm Atriclip. Patient had increased bleeding from the mediastinal chest tube first few hours of postoperative recovery, with at 1300 mL of sanguinous output in the first hour and a half. She was taken back to the OR for reexploration on 03/19/2019, and there was a large amount of clot present in and around the heart, with an area of slight degloving of the epicardium off of the anterolateral surface of the right ventricle. The clot was evacuated, hemostasis Was achieved by applying a patch. Patient was placed on the intra-aortic balloon pump via the right femoral artery and this morning she seen in follow-up in the intensive care unit. She remains sedated and intubated on mechanical ventilator, current vent settings are assist control mode of ventilation with a rate of 18, Tylenol 500, FiO2 40% and PEEP of 5, this morning's blood gas showed pO2 of 92, pCO2 38, and pH of 7.48, the mild degree of metabolic alkalosis. Repeat blood gas was also reviewed, after the rate was dropped down from 22-18, and showed pO2 of 76, pCO2 of 39, and pH of 7.47. Patient has received a total of 6 units of packed red blood cells, 5 of cryoprecipitate, 3 of fresh frozen plasma, and 2 units of platelets, this morning's blood work shows white blood cell count of 10.5, hemoglobin is 8.2, platelet count is 93, INR is 1.2, sodium is 140, potassium is 4.1, chloride was 109, CO2 is 27, B1 is 24 creatinine is 1.16. Aortic balloon pump is 123 augmentation, current drips include lactate urine is at a rate of 50 ML per hour, liters it is at 21 mics per minute, Diprivan is at 40 mics per kilo per minute, milrinone is at 0.2 mics per kilo per minute, nitroglycerin is off, and insulin drip is at 3 units per hour. Left pleural and left mediastinal chest tubes are in place, there has been a total of 246 mL out of the left pleural, and 800 mL out of the mediastinal chest tube in the last 12 hours, and chest tube output is averaging 10-30 ML per hour in the last several hours. Urine output is 40-60 ML per hour. She is in junctional rhythm with a controlled rate, epicardial wires to external pacemaker box with backup rate. Cardiac output is 6.6 and cardiac index is 3.0. Patient is waking up and following command, today's chest x-ray has been reviewed showing bilateral consolidation and pleural effusions, no pneumothorax. On 03/22/2019 patient is seen in follow-up in the intensive care unit, today is postop day 3, status post aortic valve replacement with a bioprosthetic valve, mitral valve repair with annular flex band, and [place] vessel bypass grafting. Patient is awake and alert, she is sitting up in the recliner, she is currently on 3 L of oxygen, with a pulse ox of 99%, afebrile, she is in A. fib, with a rate of 65 BPM, she was loaded with amiodarone, but in view of rising transaminases amiodarone has been discontinued and patient is currently on beta blockers. Still remains on small dose of Levophed at 3 mics per minute, insulin drip is at 1.5 unit per hour, and 0.9 normal saline at a rate of 20 ML per hour. Today's chest x-ray has been reviewed, showing stable findings, cardiomegaly with mild central vessel congestion and small tooth tiny bilateral pleural effusions and bibasilar atelectasis. Incentive spirometer effort is 750 ML today. Patient is on maintenance dose Lasix at 20 mg IV push every 12 hours. Still positive fluid balance, 1437 ML over the last 24 hours. Lung sounds are p ositive for diffuse crackles throughout, patient is mildly short of breath, but in no acute distress. Today's labs have been reviewed, showing left blood cell count of 16.7, hemoglobin 7.8, platelet count is 57, sodium is 133, potassium is 4.8, chloride is 104, CO2 is 27, B1 is 30 creatinine is 1.37. Mediastinal and left pleural chest tube putting out thin serosanguineous drainage, and there has been 190 out of the left pleural and 417 ML of servicing this drainage from the chest tubes over the last 24 hours. PA pressure is 39/17, and cardiac output and index of 4.7 and 2.1 respectively. Objective - Vital Signs Vital signs: Vital Signs Temp 98.4 F 03/22/19 00:00 Pulse 64 03/22/19 08:48 Resp 28 H 03/22/19 07:00 BP 108/58 03/22/19 05:00 Pulse Ox 99 03/22/19 07:00 Intake & Output 03/21/19 03/22/19 03/22/19 18:59 06:59 18:59 Intake Total 0633.195 2789.571 83.717 Output Total 990 670 45 Balance 665.289 772.571 38.717 Weight 120.5 kg 122.7 kg Intake: IV 739 708 59 CO/CI 90 Lactated Ringers 550 600 50 pressure bags 99 108 9 Intake, IV Titration 436.289 254.571 24.717 Amount Amiodarone 300 mg In 231.75 Dextrose 5% in Water 250 ml @ 0.5 MG/MIN 25 mls/hr IV .Q10H [facility] Rx#: [id number] Amiodarone 360 mg In 132 Dextrose 5% in Water 200 ml @ 1 MG/MIN 33.333 mls/ hr IV .Q6H [facility] Rx#: [id number] Dextrose 5% in Water 100 200 ml @ 618 mls/hr IV .Q10M [facility] with Amiodarone 150 mg Rx#:[id number] Insulin Regular 100 unit 43.329 16.270 3.416 In Sodium Chloride 0.9% 100 ml @ Per Protocol IV .Q0M [facility] Rx#:[id number] Norepinephrine 32 mg In 60.96 6.551 21.301 Sodium Chloride 0.9% 218 ml @ 0.05 MCG/KG/MIN 2. 745 mls/hr IV .Q24H [facility] Rx#:[id number] Oral 480 480 Output: Chest Tube Drainage 300 307 Left Pleural 100 90 Mediastinal 200 217 Urine 690 363 45 Other: Voiding Method Indwelling Catheter Indwelling Catheter ABP, PAP, CO, CI - Last Documented Arterial Blood Pressure 122/52 Pulmonary Artery Pressure 43/17 Cardiac Output 4.7 Cardiac Index 2.1 - Exam GENERAL EXAM: intubated 79-year-old white female patient, on 3 L of oxygen with a pulse ox of 99% comfortable in no apparent distress. HEAD: Normocephalic/atraumatic. EYES: Normal reaction of pupils, equal size. Conjunctiva pink, sclera white. NOSE: Clear with pink turbinates. THROAT: No erythema or exudates. NECK: No masses, no JVD, no thyroid enlargement, no adenopathy. CHEST: No chest wall deformity. Symmetrical expansion. Midsternal incision is clean dry and intact, covered with surgical dressing, left pleural and mediastinal chest tubes with small amount of serosanguineous output in the [place], with no air leak, cardio wires connected to external pacemaker with a backup rate LUNGS: Equal air entry with no crackles, wheeze, rhonchi or dullness. CVS: Regular rate and rhythm, normal S1 and S2, no gallops, no murmurs, no rubs ABDOMEN: Soft, nontender. No hepatosplenomegaly, normal bowel sounds, no guarding or rigidity. EXTREMITIES: No clubbing, no edema, no cyanosis, 2+ pulses and upper and lower extremities. MUSCULOSKELETAL: Muscle strength and tone normal. SPINE: No scoliosis or deformity SKIN: No rashes CENTRAL NERVOUS SYSTEM: Awake, and alert, oriented times three. No focal deficits, tone is normal in all 4 extremities. - Labs CBC & Chem 7: 03/22/19 04:18 03/22/19 04:18 Labs: Abnormal Lab Results - Last 24 Hours (Table) 03/21/19 03/21/19 03/21/19 Range/Units 05:30 10:22 12:17 WBC 17.0 H (3.8-10.6) k/uL RBC 2.74 L (3.80-5.40) m/uL Hgb 8.5 L (11.4-16.0) gm/dL Hct 24.7 L (34.0-46.0) % RDW (11.5-15.5) % Plt Count 62 L (150-450) k/uL Neutrophils # 14.3 H (1.3-7.7) k/uL Monocytes # 1.2 H (0-1.0) k/uL Sodium (137-145) mmol/L BUN (7-17) mg/dL Creatinine (0.52-1.04) mg/dL Glucose (74-99) mg/dL POC Glucose (mg/dL) 140 H 132 H (75-99) mg/dL Calcium (8.4-10.2) mg/dL AST (14-36) U/L ALT (9-52) U/L Total Protein (6.3-8.2) g/dL Albumin (3.5-5.0) g/dL 03/21/19 03/21/19 03/21/19 Range/Units 14:07 16:10 18:09 WBC (3.8-10.6) k/uL RBC (3.80-5.40) m/uL Hgb (11.4-16.0) gm/dL Hct (34.0-46.0) % RDW (11.5-15.5) % Plt Count (150-450) k/uL Neutrophils # (1.3-7.7) k/uL Monocytes # (0-1.0) k/uL Sodium (137-145) mmol/L BUN (7-17) mg/dL Creatinine (0.52-1.04) mg/dL Glucose (74-99) mg/dL POC Glucose (mg/dL) 178 H 164 H 153 H (75-99) mg/dL Calcium (8.4-10.2) mg/dL AST (14-36) U/L ALT (9-52) U/L Total Protein (6.3-8.2) g/dL Albumin (3.5-5.0) g/dL 03/21/19 03/21/19 03/22/19 Range/Units 20:27 21:54 00:12 WBC (3.8-10.6) k/uL RBC (3.80-5.40) m/uL Hgb (11.4-16.0) gm/dL Hct (34.0-46.0) % RDW (11.5-15.5) % Plt Count (150-450) k/uL Neutrophils # (1.3-7.7) k/uL Monocytes # (0-1.0) k/uL Sodium (137-145) mmol/L BUN (7-17) mg/dL Creatinine (0.52-1.04) mg/dL Glucose (74-99) mg/dL POC Glucose (mg/dL) 129 H 120 H 125 H (75-99) mg/dL Calcium (8.4-10.2) mg/dL AST (14-36) U/L ALT (9-52) U/L Total Protein (6.3-8.2) g/dL Albumin (3.5-5.0) g/dL 03/22/19 03/22/19 03/22/19 Range/Units 02:01 04:18 04:18 WBC 16.7 H (3.8-10.6) k/uL RBC 2.58 L (3.80-5.40) m/uL Hgb 7.8 L (11.4-16.0) gm/dL Hct 23.4 L (34.0-46.0) % RDW 15.9 H (11.5-15.5) % Plt Count 57 L (150-450) k/uL Neutrophils # 13.3 H (1.3-7.7) k/uL Monocytes # 1.2 H (0-1.0) k/uL Sodium 133 L (137-145) mmol/L BUN 30 H (7-17) mg/dL Creatinine 1.37 H (0.52-1.04) mg/dL Glucose 122 H (74-99) mg/dL POC Glucose (mg/dL) 125 H (75-99) mg/dL Calcium 8.2 L (8.4-10.2) mg/dL AST 385 H (14-36) U/L ALT 289 H (9-52) U/L Total Protein 4.3 L (6.3-8.2) g/dL Albumin 2.6 L (3.5-5.0) g/dL 03/22/19 03/22/19 03/22/19 Range/Units 04:22 06:13 08:07 WBC (3.8-10.6) k/uL RBC (3.80-5.40) m/uL Hgb (11.4-16.0) gm/dL Hct (34.0-46.0) % RDW (11.5-15.5) % Plt Count (150-450) k/uL Neutrophils # (1.3-7.7) k/uL Monocytes # (0-1.0) k/uL Sodium (137-145) mmol/L BUN (7-17) mg/dL Creatinine (0.52-1.04) mg/dL Glucose (74-99) mg/dL POC Glucose (mg/dL) 130 H 149 H 131 H (75-99) mg/dL Calcium (8.4-10.2) mg/dL AST (14-36) U/L ALT (9-52) U/L Total Protein (6.3-8.2) g/dL Albumin (3.5-5.0) g/dL Assessment and Plan Plan: Assessment: #1. Severe aortic valve stenosis, and moderate to severe mitral valve regurgitation, and coronary artery disease status post aortic valve replacement with a bioprosthetic valve, mitral valve repair with the annual flex band, and single vessel bypass grafting with reverse SVG off of the aorta to the circumflex artery and left atrial appendage exclusion with the ATriclip, postop day 3 #2. Postoperative bleeding, status post emergent reexploration of the chest and evacuation of clot and control of bleeding #3. Acute blood loss anemia related to the above, status post transfusion with 6 units of RBCs, 5 units of cryoprecipitate, 3 units of rest frozen plasma, and 2 units of platelets #4. Routine ventilator management #5. Secondary pulmonary hypertension #6. Ischemic cardiomyopathy #7. Hypertension #8. Hyperlipidemia #9. Hypothyroidism Plan: Continue with IV diuretics, chest x-ray shows mild central vascular congestion and tiny pleural effusions and atelectasis. Continue encouraging deep breathing and coughing, remains on small dose of Levaquin, but more hemodynamically stable, hemoglobin is 7.8 this morning, Afib is controlled, patient has been started on Arixtra. Anticipate removal of the PA catheter. Encourage activity as tolerated, will continue to follow and make further recommendations I performed a history & physical examination of the patient and discussed their management with my nurse practitioner, Kassie Og. I reviewed the nurse practitioner's note and agree with the documented findings and plan of care. Lung sounds are positive for diminished breath sounds. The findings and the impression was discussed with the patient. I attest to the documentation by the nurse practitioner. Time with Patient: Less than 30
[2019-03-22] MEDS: INSULIN REGULAR 100 UNIT in SODIUM CHLORIDE 0.9% 100 ML IV SCH (11:05)
[2019-03-22 11:09] LABS: Glucose,Whole Blood 122 mg/dL (75-99)
[2019-03-22 13:36] LABS: Glucose,Whole Blood 171 mg/dL (75-99)
--- NOTE | 2019-03-22 15:29 | P.PN ---
Subjective This is Marily Basilio PA-C dictating a progress note on this patient The patient was interviewed and examined by me as well as by Dr. Geiger Case discussed with Dr. Geiger and he agrees with the plan of care IMPRESSION / ASSESSMENT: Aortic stenosis status post aortic valve replacement Mitral regurgitation status post mitral valve repair CAD status post CABG 1 Paroxysmal atrial fibrillation, status post atrial appendage clipping, currently in sinus bradycardia with junctional escape rhythm Ischemic cardiomyopathy, most recent echocardiogram showed EF 40-45% Hypertension, as been hypotensive after surgery, being weaned off pressors Dyslipidemia PLAN: Continue to maximize medical treatment of CAD/ischemic cardiomyopathy with dual antiplatelet therapy, statins, beta blockers as tolerated HPI/interval history Patient 79-year-old female who is postop day 3 status post aortic valve replacement, mitral valve repair, CABG 1, and left atrial appendage ligation complicated by postoperative bleeding requiring reexploration and multiple transfusions. She went into atrial fibrillation and was treated with amiodarone but her liver enzymes were elevated so it was stopped.. She is receiving low- dose beta blockers. Bedside telemetry revealed underlying sinus bradycardia with junctional escape rhythm. She is being weaned off pressors. Seen and examined sitting up in her chair. States she is still sore but feels a little better today. Denies shortness of breath EXAMINATION Patient is afebrile, pulse 59, respirations 23, blood pressure 119/82, oxygen saturation 100% on 3 L nasal cannula Patient seen and examined sitting up in her chair, appears comfortable, in no acute distress Breath sounds with few scattered rhonchi at the bases Heart sounds are soft, regular rate, normal S1 and S2, no murmurs appreciated Mild lower extremity edema REVIEW OF LABS, ECG telemetry revealed underlying sinus bradycardia with junctional escape rhythm, left bundle-branch block Morning labs reviewed, WBC 16.7, hemoglobin 7.8, potassium 4.8, BUN 30, creatinine 1.37, AST 385, ALT 289 Objective - Vital Signs Vital signs: Vital Signs Temp 98.3 F 03/22/19 12:00 Pulse 73 03/22/19 15:00 Resp 15 03/22/19 15:00 BP 110/66 03/22/19 14:00 Pulse Ox 100 03/22/19 15:00 Intake & Output 03/21/19 03/22/19 03/22/19 18:59 06:59 18:59 Intake Total 6315.913 4433.571 575.011 Output Total 990 670 505 Balance 665.289 772.571 70.011 Weight 120.5 kg 122.7 kg Intake: IV 739 708 347 CO/CI 90 Lactated Ringers 550 600 290 pressure bags 99 108 57 Intake, IV Titration 436.289 254.571 28.011 Amount Amiodarone 300 mg In 231.75 Dextrose 5% in Water 250 ml @ 0.5 MG/MIN 25 mls/hr IV .Q10H [facility] Rx#: [id number] Amiodarone 360 mg In 132 Dextrose 5% in Water 200 ml @ 1 MG/MIN 33.333 mls/ hr IV .Q6H [facility] Rx#: [id number] Dextrose 5% in Water 100 200 ml @ 618 mls/hr IV .Q10M ONE with Amiodarone 150 mg Rx#:[id number] Insulin Regular 100 unit 43.329 16.270 3.416 In Sodium Chloride 0.9% 100 ml @ Per Protocol IV .Q0M [facility] Rx#:[id number] Norepinephrine 32 mg In 60.96 6.551 24.595 Sodium Chloride 0.9% 218 ml @ 0.05 MCG/KG/MIN 2. 745 mls/hr IV .Q24H [facility] Rx#:[id number] Oral 480 480 200 Output: Chest Tube Drainage 300 307 Left Pleural 100 90 Mediastinal 200 217 Urine 690 363 505 Other: Voiding Method Indwelling Catheter Indwelling Catheter Indwelling Catheter ABP, PAP, CO, CI - Last Documented Arterial Blood Pressure 99/60 Pulmonary Artery Pressure 38/16 Cardiac Output 4.7 Cardiac Index 2.1 - Labs CBC & Chem 7: 03/22/19 04:18 03/22/19 04:18 Labs: Abnormal Lab Results - Last 24 Hours (Table) 03/21/19 03/21/19 03/21/19 Range/Units 16:10 18:09 20:27 WBC (3.8-10.6) k/uL RBC (3.80-5.40) m/uL Hgb (11.4-16.0) gm/dL Hct (34.0-46.0) % RDW (11.5-15.5) % Plt Count (150-450) k/uL Neutrophils # (1.3-7.7) k/uL Monocytes # (0-1.0) k/uL Sodium (137-145) mmol/L BUN (7-17) mg/dL Creatinine (0.52-1.04) mg/dL Glucose (74-99) mg/dL POC Glucose (mg/dL) 164 H 153 H 129 H (75-99) mg/dL Calcium (8.4-10.2) mg/dL AST (14-36) U/L ALT (9-52) U/L Total Protein (6.3-8.2) g/dL Albumin (3.5-5.0) g/dL 03/21/19 03/22/19 03/22/19 Range/Units 21:54 00:12 02:01 WBC (3.8-10.6) k/uL RBC (3.80-5.40) m/uL Hgb (11.4-16.0) gm/dL Hct (34.0-46.0) % RDW (11.5-15.5) % Plt Count (150-450) k/uL Neutrophils # (1.3-7.7) k/uL Monocytes # (0-1.0) k/uL Sodium (137-145) mmol/L BUN (7-17) mg/dL Creatinine (0.52-1.04) mg/dL Glucose (74-99) mg/dL POC Glucose (mg/dL) 120 H 125 H 125 H (75-99) mg/dL Calcium (8.4-10.2) mg/dL AST (14-36) U/L ALT (9-52) U/L Total Protein (6.3-8.2) g/dL Albumin (3.5-5.0) g/dL 03/22/19 03/22/19 03/22/19 Range/Units 04:18 04:18 04:22 WBC 16.7 H (3.8-10.6) k/uL RBC 2.58 L (3.80-5.40) m/uL Hgb 7.8 L (11.4-16.0) gm/dL Hct 23.4 L (34.0-46.0) % RDW 15.9 H (11.5-15.5) % Plt Count 57 L (150-450) k/uL Neutrophils # 13.3 H (1.3-7.7) k/uL Monocytes # 1.2 H (0-1.0) k/uL Sodium 133 L (137-145) mmol/L BUN 30 H (7-17) mg/dL Creatinine 1.37 H (0.52-1.04) mg/dL Glucose 122 H (74-99) mg/dL POC Glucose (mg/dL) 130 H (75-99) mg/dL Calcium 8.2 L (8.4-10.2) mg/dL AST 385 H (14-36) U/L ALT 289 H (9-52) U/L Total Protein 4.3 L (6.3-8.2) g/dL Albumin 2.6 L (3.5-5.0) g/dL 03/22/19 03/22/19 03/22/19 Range/Units 06:13 08:07 10:57 WBC (3.8-10.6) k/uL RBC (3.80-5.40) m/uL Hgb (11.4-16.0) gm/dL Hct (34.0-46.0) % RDW (11.5-15.5) % Plt Count (150-450) k/uL Neutrophils # (1.3-7.7) k/uL Monocytes # (0-1.0) k/uL Sodium (137-145) mmol/L BUN (7-17) mg/dL Creatinine (0.52-1.04) mg/dL Glucose (74-99) mg/dL POC Glucose (mg/dL) 149 H 131 H 122 H (75-99) mg/dL Calcium (8.4-10.2) mg/dL AST (14-36) U/L ALT (9-52) U/L Total Protein (6.3-8.2) g/dL Albumin (3.5-5.0) g/dL 03/22/19 Range/Units 13:24 WBC (3.8-10.6) k/uL RBC (3.80-5.40) m/uL Hgb (11.4-16.0) gm/dL Hct (34.0-46.0) % RDW (11.5-15.5) % Plt Count (150-450) k/uL Neutrophils # (1.3-7.7) k/uL Monocytes # (0-1.0) k/uL Sodium (137-145) mmol/L BUN (7-17) mg/dL Creatinine (0.52-1.04) mg/dL Glucose (74-99) mg/dL POC Glucose (mg/dL) 171 H (75-99) mg/dL Calcium (8.4-10.2) mg/dL AST (14-36) U/L ALT (9-52) U/L Total Protein (6.3-8.2) g/dL Albumin (3.5-5.0) g/dL
--- NOTE | 2019-03-22 15:44 | P.PN ---
Subjective Progress Note Date: 03/22/19 This is a 79-year-old female status post CABG X1, aortic valve replacement with bioprosthetic valve, mitral valve repair in a patient with severe aortic valve stenosis, moderate to severe mitral valve regurgitation, CAD, ischemic cardiomyopathy-preop EF 30%, pulmonary hypertension, hypertension, hypothyro idism and multiple other medical issues. Shortly after returning to ICU postop, she developed increased chest tube ouput of 1.3 L over 1-1/2 hours, returned to the OR and required emergent reexploration of the chest with evacuation of clots, control bleeding, placement of IABP. Mediastinal and left pleural chest tube drainage improved. This morning IABP weaned to 1:3 with plans for discontinuing this morning. Continuies on DIprovan, Levophed, Primacor and insulin drips. Cardiac output 7.4, cardiac index 3.4. Maintained on mechanical ventilation with FiO2 40%/+5 of PEEP. Chest x-ray reporting bilateral consolidation and pleural effusion. Telemetry accelerated junctional. 03/21/2019 Extubated yesterday evening.Maintaining O2 sats in the high 90s on 4 L nasal cannula. Incentive spirometer 800 to 1000. Maintained on insulin and Levophed drips. Recent cardiac output/cardiac index 6.1/2.8 .Developed atrial fibrillation last night, received digoxin. Remains in atrial fibrillation, receiving amiodarone bolus with drip pending. Magnesium 2.2, potassium 4.7. Hemoglobin remains stable at 8.5, platelets 62. creatinine 1.26 .Pain controlled. 03/22/2019 maintained on insulin, amiodarone, Levophed drips. Telemetry atrial fibrillation. Amiodarone discontinued secondary to elevated transminases; continues on metoprolol. Arixtra initiated. IS up to 1000. Maintaining O2 sats in the high 90s on 4 L nasal cannula. Chest x-ray reporting mild central vascular congestion, small bilateral pleural effusions and bibasilar acute infiltrates versus atelectasis-no significant change. Maintained on Lasix IV push with 24-hour I&O reflecting a positive fluid balance. 24-hour I&O reflects mediastinal chest tube for 417mls and left pleural chest tube 190mls in the next 24 hours.Hemoglobin 7.8, platelets 57. CO/CI 4.7/2.1. Creatinine 1.37. T-max 100.8, WBC 16.7. Blood sugars controlled. Objective - Vital Signs Vital signs: Vital Signs Temp 98.3 F 03/22/19 12:00 Pulse 59 L 03/22/19 12:08 Resp 28 H 03/22/19 12:00 BP 109/63 03/22/19 12:00 Pulse Ox 98 03/22/19 12:00 Intake & Output 03/21/19 03/22/19 03/22/19 18:59 06:59 18:59 Intake Total 1835.129 1120.571 562.011 Output Total 990 670 470 Balance 665.289 772.571 92.011 Weight 120.5 kg 122.7 kg Intake: IV 739 708 334 CO/CI 90 Lactated Ringers 550 600 280 pressure bags 99 108 54 Intake, IV Titration 436.289 254.571 28.011 Amount Amiodarone 300 mg In 231.75 Dextrose 5% in Water 250 ml @ 0.5 MG/MIN 25 mls/hr IV .Q10H [facility] Rx#: [id number] Amiodarone 360 mg In 132 Dextrose 5% in Water 200 ml @ 1 MG/MIN 33.333 mls/ hr IV .Q6H ONE Rx#: [id number] Dextrose 5% in Water 100 200 ml @ 618 mls/hr IV .Q10M ONE with Amiodarone 150 mg Rx#:[id number] Insulin Regular 100 unit 43.329 16.270 3.416 In Sodium Chloride 0.9% 100 ml @ Per Protocol IV .Q0M [facility] Rx#:[id number] Norepinephrine 32 mg In 60.96 6.551 24.595 Sodium Chloride 0.9% 218 ml @ 0.05 MCG/KG/MIN 2. 745 mls/hr IV .Q24H [facility] Rx#:[id number] Oral 480 480 200 Output: Chest Tube Drainage 300 307 Left Pleural 100 90 Mediastinal 200 217 Urine 690 363 470 Other: Voiding Method Indwelling Catheter Indwelling Catheter Indwelling Catheter ABP, PAP, CO, CI - Last Documented Arterial Blood Pressure 95/42 Pulmonary Artery Pressure 38/16 Cardiac Output 4.7 Cardiac Index 2.1 - Exam PHYSICAL EXAM: VITAL SIGNS: As above GENERAL: Sitting up in recliner, no acute distress, minimal shortness of breath HEENT: Conjunctivae normal. eyes normal. Oral mucosa moist NECK: No JVD. No thyroid enlargement. No LNs CARDIOVASCULAR: S1, S2 regular. No murmur, rubs or gallops. RESPIRATION: Breath sounds diminished in the bases. No rhonchi or crackles. No wheezing. Mediastinal and left pleural chest tubes present, with serosanguineous drainage ABDOMEN: Soft, nontender . No guarding. No hepatosplenomegaly. no masses palpable. Hypoactive Bowel sounds. LEGS: Generalized edema, positive peripheral pulses, LAUREL hose. PSYCHIATRY: Alert and oriented 3 NERVOUS SYSTEM: Cranial nerves II through XII grossly intact, moves all 4 extremities, mild diffuse generalized weakness. No focal deficits. Strength and sensation grossly intact. Skin: Generalized mild edema ,no lesions, no rash. No clubbing, no cyanosis. - Labs CBC & Chem 7: 03/22/19 04:18 03/22/19 04:18 Labs: Abnormal Lab Results - Last 24 Hours (Table) 03/21/19 03/21/19 03/21/19 Range/Units 16:10 18:09 20:27 WBC (3.8-10.6) k/uL RBC (3.80-5.40) m/uL Hgb (11.4-16.0) gm/dL Hct (34.0-46.0) % RDW (11.5-15.5) % Plt Count (150-450) k/uL Neutrophils # (1.3-7.7) k/uL Monocytes # (0-1.0) k/uL Sodium (137-145) mmol/L BUN (7-17) mg/dL Creatinine (0.52-1.04) mg/dL Glucose (74-99) mg/dL POC Glucose (mg/dL) 164 H 153 H 129 H (75-99) mg/dL Calcium (8.4-10.2) mg/dL AST (14-36) U/L ALT (9-52) U/L Total Protein (6.3-8.2) g/dL Albumin (3.5-5.0) g/dL 03/21/19 03/22/19 03/22/19 Range/Units 21:54 00:12 02:01 WBC (3.8-10.6) k/uL RBC (3.80-5.40) m/uL Hgb (11.4-16.0) gm/dL Hct (34.0-46.0) % RDW (11.5-15.5) % Plt Count (150-450) k/uL Neutrophils # (1.3-7.7) k/uL Monocytes # (0-1.0) k/uL Sodium (137-145) mmol/L BUN (7-17) mg/dL Creatinine (0.52-1.04) mg/dL Glucose (74-99) mg/dL POC Glucose (mg/dL) 120 H 125 H 125 H (75-99) mg/dL Calcium (8.4-10.2) mg/dL AST (14-36) U/L ALT (9-52) U/L Total Protein (6.3-8.2) g/dL Albumin (3.5-5.0) g/dL 03/22/19 03/22/19 03/22/19 Range/Units 04:18 04:18 04:22 WBC 16.7 H (3.8-10.6) k/uL RBC 2.58 L (3.80-5.40) m/uL Hgb 7.8 L (11.4-16.0) gm/dL Hct 23.4 L (34.0-46.0) % RDW 15.9 H (11.5-15.5) % Plt Count 57 L (150-450) k/uL Neutrophils # 13.3 H (1.3-7.7) k/uL Monocytes # 1.2 H (0-1.0) k/uL Sodium 133 L (137-145) mmol/L BUN 30 H (7-17) mg/dL Creatinine 1.37 H (0.52-1.04) mg/dL Glucose 122 H (74-99) mg/dL POC Glucose (mg/dL) 130 H (75-99) mg/dL Calcium 8.2 L (8.4-10.2) mg/dL AST 385 H (14-36) U/L ALT 289 H (9-52) U/L Total Protein 4.3 L (6.3-8.2) g/dL Albumin 2.6 L (3.5-5.0) g/dL 03/22/19 03/22/1919 Range/Units 06:13 08:07 10:57 WBC (3.8-10.6) k/uL RBC (3.80-5.40) m/uL Hgb (11.4-16.0) gm/dL Hct (34.0-46.0) % RDW (11.5-15.5) % Plt Count (150-450) k/uL Neutrophils # (1.3-7.7) k/uL Monocytes # (0-1.0) k/uL Sodium (137-145) mmol/L BUN (7-17) mg/dL Creatinine (0.52-1.04) mg/dL Glucose (74-99) mg/dL POC Glucose (mg/dL) 149 H 131 H 122 H (75-99) mg/dL Calcium (8.4-10.2) mg/dL AST (14-36) U/L ALT (9-52) U/L Total Protein (6.3-8.2) g/dL Albumin (3.5-5.0) g/dL 03/22/19 Range/Units 13:24 WBC (3.8-10.6) k/uL RBC (3.80-5.40) m/uL Hgb (11.4-16.0) gm/dL Hct (34.0-46.0) % RDW (11.5-15.5) % Plt Count (150-450) k/uL Neutrophils # (1.3-7.7) k/uL Monocytes # (0-1.0) k/uL Sodium (137-145) mmol/L BUN (7-17) mg/dL Creatinine (0.52-1.04) mg/dL Glucose (74-99) mg/dL POC Glucose (mg/dL) 171 H (75-99) mg/dL Calcium (8.4-10.2) mg/dL AST (14-36) U/L ALT (9-52) U/L Total Protein (6.3-8.2) g/dL Albumin (3.5-5.0) g/dL Assessment and Plan Assessment: -Status post CABG 1 with Aortic and Mitral valve repair with left atrial ap pendage exclusion, secondary to severe aortic valve stenosis and moderate to severe mitral valve regurgitation. Bioprosthetic aortic valve. -Acute postoperative bleeding, unexpected outcome -Acute blood loss anemia secondary to the above, status post transfusions of multiple products; RBCs, cryoprecipitate, FFP, platelets -Postoperative hypotension, unexpected outcome, pressor dependent -Thrombocytopenia, reactive, Plavix currently on hold -Postoperative atrial fibrillation -Secondary pulmonary hypertension -Chronic systolic CHF, Ischemic cardiomyopathy, preop EF 30% -Hyperlipidemia -Hypertension, history of -Hypothyroidism -Right ICA stenosis 50-70% -History of nicotine dependence Plan: Continue current medication regime , beta heriberto, statin, aspirin monitoring and symptomatic treatment.Continue nebulized bronchodilators. Maintain Aggressive pulmonary toileting with incentive spirometer reinforced .DC insulin drip and converted over to insulin subcu sliding scale .close monitoring of Accu-Cheks .Close monitoring of hemoglobin, platelets, renal function, electrolytes with repeat labs ordered for a.m. PT/OT. Further recommendations to follow. The impression and plan of care has been dictated as directed. : I performed a history and examination of this patient, discussed the same with the dictator. I agree with the dictator's note ,documented as a scribe. Any additional findings or plans will be noted. Time taken: 35 minutes.
[2019-03-22] MEDS: INSULIN ASPART (NovoLOG) 100 UNIT/ML VIAL SQ SCH ×2 (17:19→21:03)
[2019-03-22 17:23] LABS: Glucose,Whole Blood 107 mg/dL (75-99)
[2019-03-22 20:54] LABS: Glucose,Whole Blood 146 mg/dL (75-99)
[2019-03-22] MEDS: SENNOSIDES-DOCUSATE SODIUM 1 EACH TAB PO SCH (21:02)
[2019-03-23] MEDS: NOREPINEPHRINE 32 MG in SODIUM CHLORIDE 0.9% 218 ML IV SCH (00:06)
[2019-03-23] MEDS: HYDROcodone/APAP 5-325MG 1 EACH TAB PO PRN ×3 (05:25→21:16)
[2019-03-23] MEDS: LEVOTHYROXINE 50 MCG TAB PO SCH (05:30)
[2019-03-23] MEDS: SODIUM CHLORIDE 0.9% 500 ML 500 ML IV SCH (05:31)
[2019-03-23] MEDS: IPRATROPIUM-ALBUTEROL 3 ML NEB INHALATION PRN (05:44)
[2019-03-23] MEDS: INSULIN ASPART (NovoLOG) 100 UNIT/ML VIAL SQ SCH ×4 (05:49→20:58)
[2019-03-23 05:54] LABS: Anisocytosis Slight; Basophils % (A) 0 %; Eosinophils # (A) 0.3 k/uL (0-0.7); Eosinophils % (A) 2 %; HCT 23.5 % (34.0-46.0); Lymphocytes # (A) 1.6 k/uL (1.0-4.8); Lymphocytes % (A) 10 %; MCH 31.1 pg (25.0-35.0); MCHC 33.8 g/dL (31.0-37.0); Mean Platelet Volume 10.1; Monocytes % (A) 7 %; Neutrophils # (A) 12.7 k/uL (1.3-7.7); Neutrophils % (A) 80 %; RBC 2.56 m/uL (3.80-5.40); RDW 17.1 % (11.5-15.5); WBC 15.9 k/uL (3.8-10.6)
[2019-03-23 05:56] LABS: Platelet Count 54 k/uL (150-450)
[2019-03-23 05:58] LABS: Glucose,Whole Blood 121 mg/dL (75-99)
[2019-03-23 06:03] LABS: Albumin 2.7 g/dL (3.5-5.0); Calcium 8.3 mg/dL (8.4-10.2); Magnesium 2.2 mg/dL (1.6-2.3); Potassium 4.8 mmol/L (3.5-5.1); Total Bilirubin 0.8 mg/dL (0.2-1.3); Total Protein 4.4 g/dL (6.3-8.2)
[2019-03-23] MEDS: ASCORBIC ACID 500 MG TAB PO SCH ×2 (06:50→15:58)
[2019-03-23] MEDS: FERROUS SULFATE 325 MG TAB PO SCH ×2 (06:50→15:59)
[2019-03-23] MEDS: PANTOPRAZOLE 40 MG TABLET PO SCH (06:51)
[2019-03-23 07:23] LABS: Glucose,Whole Blood 109 mg/dL (75-99)
--- NOTE | 2019-03-23 07:26 | P.PN ---
Subjective Progress Note Date: 03/23/19 Principal diagnosis: Severe aortic valve stenosis, moderate to severe mitral valve regurgitation, single-vessel coronary artery disease, and a decreased LV function, chronic systolic heart failure with a preoperative ejection fraction of 30%. History of hypertension, hyperlipidemia, hypothyroid, osteoarthritis, chronic renal failure with baseline creatinine 1.3-1.6, right internal carotid artery stenosis 50-70%, previous tobacco dependance with preoperative FEV1 93% of predicted. POD #4 aortic valve replacement with a #23 mm Avalus bioprosthetic Medtronic aortic valve, mitral valve repair with a #30 mm Carbomedics AnnuloFlex band. Coronary artery bypass grafting 1 vessel with a reverse greater saphenous vein off the aorta to the circumflex coronary artery and a clip ligation of the left atrial appendage with a 35 mm Atriclip. Endoscopic harvesting of the left gre ater saphenous vein. Intraoperative transesophageal echocardiogram. Acute postoperative bleeding, an unexpected outcome Reactive thrombocytopenia, expected POD #4 Emergent re-exploration of the chest, evacuation of clots and control of bleed. Placement of intra-aortic balloon pump. Post operative atrial fibrillation, unexpected. Transaminitis, unexpected. The patient is currently sitting up in the recliner in the intensive care unit in no acute distress. States her pain is controlled on current medication regimen, denies shortness of breath. Currently in controlled atrial fibrillation, amiodarone discontinued yesterday secondary to elevated liver enzymes. Has been off IV levo since yesterday afternoon, hemodynamically stable. Chest tubes, Cordis, Lovett remain. Patient has been ambulatory in her room only. No new concerns. Objective - Vital Signs Vital signs: Vital Signs Temp 98.7 F 03/23/19 04:00 Pulse 79 03/23/19 07:00 Resp 16 03/23/19 07:00 BP 89/66 03/23/19 07:00 Pulse Ox 99 03/23/19 07:00 Intake & Output 03/22/19 03/23/19 03/23/19 18:59 06:59 18:59 Intake Total 964.011 225 Output Total 835 845 Balance 129.011 -620 Weight 124.6 kg Intake: IV 386 225 0.9NS @ 10ml/hr 160 Lactated Ringers 320 10 Sodium Chloride 0.9% 500 40 ml 500 ml @ 20 mls/hr IV .Q24H [facility] Rx#:[id number] pressure bags 66 15 Intake, IV Titration 28.011 Amount Insulin Regular 100 unit 3.416 In Sodium Chloride 0.9% 100 ml @ Per Protocol IV .Q0M [facility] Rx#:[id number] Norepinephrine 32 mg In 24.595 Sodium Chloride 0.9% 218 ml @ 0.05 MCG/KG/MIN 2. 745 mls/hr IV .Q24H [facility] Rx#:[id number] Oral 550 Output: Chest Tube Drainage 170 130 Left Pleural 40 20 Mediastinal 130 110 Urine 665 715 Other: Voiding Method Indwelling Catheter Indwelling Catheter ABP, PAP, CO, CI - Last Documented Arterial Blood Pressure 102/67 Pulmonary Artery Pressure 38/16 Cardiac Output 4.7 Cardiac Index 2.1 - Constitutional General appearance: Present: cooperative, no acute distress, obese - Respiratory Details: Lungs sounds diminished bilaterally with expiratory wheezes heard posteriorly. Respirations even, non-labored on 2 LPM NC with oxygen saturation 98%. Able to achieve 750 mL on incentive spirometry. Strong cough. Mediastinal chest tube connected to continuous wall suction, 30 mL serosanguinous drainage overnight, 270 mL in the last 24 hours. Left pleural chest tube to continuous wall suction, no drainage overnight, 80 mL serous drainage in the last 24 hours. No air leaks present. - Cardiovascular Details: S1/S2 present. Irregular rate and rhythm, controlled atrial fibrillation on telemetry. Sternum stable. A/V epicardial pacemaker wires present, connected to generator with generator turned off. Palpable peripheral pulses bilaterally. Generalized edema present. Right internal Cordis present. No calf pain or tenderness noted. Heart hugger in place with patient demonstrating appropriate use. Antiembolism stockings, SCDs present. - Gastrointestinal Gastrointestinal Comment(s): Abdomen soft, nontender, nondistended. Hypoactive bowel sounds present 4 quadrants. Tolerating diet. Positive flatus, negative bowel movement. - Genitourinary Genitourinary Comment(s): Lovett present draining clear, yellow urine. Output 30-40 mL/h overnight. - Integumentary Integumentary Comment(s): Skin is warm and dry with evidence of good perfusion. Anterior chest incision well approximated and covered with dry intact dressing. Left lower extremity EVH site well approximated. - Neurologic Neurologic: Present: CNII-XII intact - Musculoskeletal Musculoskeletal: Present: gait normal, strength equal bilaterally - Psychiatric Psychiatric: Present: A&O x's 3, appropriate affect, intact judgment & insight - Allied health notes Allied health notes reviewed: nursing - Labs CBC & Chem 7: 03/23/19 05:45 03/23/19 05:45 Labs: Abnormal Lab Results - Last 24 Hours (Table) 03/22/19 03/22/19 03/22/19 Range/Units 08:07 10:57 13:24 WBC (3.8-10.6) k/uL RBC (3.80-5.40) m/uL Hgb (11.4-16.0) gm/dL Hct (34.0-46.0) % RDW (11.5-15.5) % Plt Count (150-450) k/uL Neutrophils # (1.3-7.7) k/uL Sodium (137-145) mmol/L BUN (7-17) mg/dL Creatinine (0.52-1.04) mg/dL Glucose (74-99) mg/dL POC Glucose (mg/dL) 131 H 122 H 171 H (75-99) mg/dL Calcium (8.4-10.2) mg/dL AST (14-36) U/L ALT (9-52) U/L Total Protein (6.3-8.2) g/dL Albumin (3.5-5.0) g/dL 03/22/19 03/22/19 03/23/19 Range/Units 17:10 20:43 05:45 WBC 15.9 H (3.8-10.6) k/uL RBC 2.56 L (3.80-5.40) m/uL Hgb 8.0 L (11.4-16.0) gm/dL Hct 23.5 L (34.0-46.0) % RDW 17.1 H (11.5-15.5) % Plt Count 54 L (150-450) k/uL Neutrophils # 12.7 H (1.3-7.7) k/uL Sodium (137-145) mmol/L BUN (7-17) mg/dL Creatinine (0.52-1.04) mg/dL Glucose (74-99) mg/dL POC Glucose (mg/dL) 107 H 146 H (75-99) mg/dL Calcium (8.4-10.2) mg/dL AST (14-36) U/L ALT (9-52) U/L Total Protein (6.3-8.2) g/dL Albumin (3.5-5.0) g/dL 03/23/19 03/23/19 Range/Units 05:45 05:47 WBC (3.8-10.6) k/uL RBC (3.80-5.40) m/uL Hgb (11.4-16.0) gm/dL Hct (34.0-46.0) % RDW (11.5-15.5) % Plt Count (150-450) k/uL Neutrophils # (1.3-7.7) k/uL Sodium 132 L (137-145) mmol/L BUN 43 H (7-17) mg/dL Creatinine 1.31 H (0.52-1.04) mg/dL Glucose 110 H (74-99) mg/dL POC Glucose (mg/dL) 121 H (75-99) mg/dL Calcium 8.3 L (8.4-10.2) mg/dL AST 334 H (14-36) U/L ALT 378 H (9-52) U/L Total Protein 4.4 L (6.3-8.2) g/dL Albumin 2.7 L (3.5-5.0) g/dL - Imaging and Cardiology Chest x-ray: image reviewed Assessment and Plan Assessment: 1. Severe aortic valve stenosis, status post bioprosthetic aortic valve replacement 2. Moderate to severe mitral valve regurgitation, status post mitral valve repair 3. Single-vessel coronary artery disease, status post 1 vessel CABG 4. Decreased LV function, chronic systolic heart failure, ischemic cardiomyopathy with preoperative EF 30%, EF improved to 40-45% post surgery 5. History of hypertension, currently hypotensive on IV levo 6. Hyperlipidemia 7. Hypothyroid 8. Osteoarthritis 9. Right internal carotid artery stenosis 50-69% 10. Chronic renal failure, baseline creatinine 1.3-1.6 11. Previous tobacco dependence with preoperative FEV1 93% of predicted 12. Acute postoperative bleeding 13. Thrombocytopenia, reactive 14. Postoperative atrial fibrillation, status post clip ligation of left atrial appendage 15. Transaminitis Plan: 1. Continue low-dose aspirin, beta heriberto therapy. Will increase beta heriberto therapy as tolerated. Will hold Plavix for now secondary to reactive thrombocytopenia, hold statin secondary to transaminitis. 2. Wean O2 as tolerated. Encourage incentive spirometry 10 times every hour while awake. 3. Increase activity, ambulate as tolerated. PT/OT/cardiac rehab following. 4. Will monitor daily labs and x-rays. Electrolytes replacement per protocol. No further transfusions at this point. 5. GI/DVT prophylaxis. 6. Insulin management per primary care service. 7. Pain control current medication regimen. No Toradol. 8. Likely will discontinue mediastinal, left pleural chest tubes. 9. Discontinue Lovett. May straight cath for greater than 300 mL residual 10. Continue IV Lasix 20 mg BID. 11. Discontinue Cordis. 12. Continue Iron, vitamin C. 13. Will place transfer orders for 3 S. cardiac stepdown unit. May transfer when bed available 14. Discharge planning in progress. Anticipate discharge to home with home care. May need rehab if unable to ambulate in the hallway, however likely her activity will increase once all lines and tubes have been discontinued. 15. More recommendations to follow as patient progresses. Time with Patient: Greater than 30
[2019-03-23] MEDS: IPRATROPIUM-ALBUTEROL 3 ML NEB INHALATION SCH ×4 (07:57→19:38)
[2019-03-23] MEDS: METOPROLOL TARTRATE 12.5 MG TAB PO SCH ×2 (08:32→20:58)
[2019-03-23] MEDS: FUROSEMIDE 10 MG/ML 2 ML VIAL IV SCH (08:32)
[2019-03-23] MEDS: ASPIRIN 81 MG PO SCH (08:33)
[2019-03-23] MEDS: CHOLECALCIFEROL 1,000 UNIT TAB PO SCH (08:33)
[2019-03-23] MEDS: FONDAPARINUX 2.5 MG/0.5 ML SYRINGE SQ SCH (08:33)
--- NOTE | 2019-03-23 08:51 | P.PN ---
Subjective Progress Note Date: 03/23/19 Principal diagnosis: Severe aortic valve stenosis and regurgitation, moderate to severe mitral regurgitation, 1 vessel coronary artery bypass This is a 79-year-old white female patient of Dr. Mati Vale, with a known history of aortic stenosis and regurgitation, hypertension, hyperlipidemia, hypothyroidism, moderate noncritical carotid artery stenosis, who was found to have significant decrease in LV function based on her echocardiogram in December 2018 with systolic/diastolic dysfunction. Recent underwent transesophageal echocardiogram on 02/05/2019 showing sclerotic and calcific aortic valve with severe aortic stenosis with area of the aortic valve calculated in the range of 1-1.1. There was moderate degree of mitral regurgitation, severely impaired left ventricle systolic function with estimated ejection fraction of 30%, and no evidence of thrombus in the left atrial appendage. Catheterization showed diffusely diseased LAD distally, RCA was dominant and disease free, circumflex had a 60-70% mid lesion. Yesterday on 03/19/2019 patient underwent aortic valve replacement with a #23 mm a villous hypostatic Medtronic aortic valve, mitral valve repair with a #30 mm [employer] annular flex band, and single-vessel coronary artery bypass grafting with reverse SVG to the circumflex and ligation of the left atrial appendage with a #35 mm Atriclip. Patient had increased bleeding from the mediastinal chest tube first few hours of postoperative recovery, with at 1300 mL of sanguinous output in the first hour and a half. She was taken back to the OR for reexploration on 03/19/2019, and there was a large amount of clot present in and around the heart, with an area of slight degloving of the epicardium off of the anterolateral surface of the right ventricle. The clot was evacuated, hemostasis Was achieved by applying a patch. Patient was placed on the intra-aortic balloon pump via the right femoral artery and this morning she seen in follow-up in the intensive care unit. She remains sedated and intubated on mechanical ventilator, current vent settings are assist control mode of ventilation with a rate of 18, Tylenol 500, FiO2 40% and PEEP of 5, this morning's blood gas showed pO2 of 92, pCO2 38, and pH of 7.48, the mild degree of metabolic alkalosis. Repeat blood gas was also reviewed, after the rate was dropped down from 22-18, and showed pO2 of 76, pCO2 of 39, and pH of 7.47. Patient has received a total of 6 units of packed red blood cells, 5 of cryoprecipitate, 3 of fresh frozen plasma, and 2 units of platelets, this morning's blood work shows white blood cell count of 10.5, hemoglobin is 8.2, platelet count is 93, INR is 1.2, sodium is 140, potassium is 4.1, chloride was 109, CO2 is 27, B1 is 24 creatinine is 1.16. Aortic balloon pump is 123 augmentation, current drips include lactate urine is at a rate of 50 ML per hour, liters it is at 21 mics per minute, Diprivan is at 40 mics per kilo per minute, milrinone is at 0.2 mics per kilo per minute, nitroglycerin is off, and insulin drip is at 3 units per hour. Left pleural and left mediastinal chest tubes are in place, there has been a total of 246 mL out of the left pleural, and 800 mL out of the mediastinal chest tube in the last 12 hours, and chest tube output is averaging 10-30 ML per hour in the last several hours. Urine output is 40-60 ML per hour. She is in junctional rhythm with a controlled rate, epicardial wires to external pacemaker box with backup rate. Cardiac output is 6.6 and cardiac index is 3.0. Patient is waking up and following command, today's chest x-ray has been reviewed showing bilateral consolidation and pleural effusions, no pneumothorax. On 03/22/2019 patient is seen in follow-up in the intensive care unit, today is postop day 3, status post aortic valve replacement with a bioprosthetic valve, mitral valve repair with annular flex band, and [place] vessel bypass grafting. Patient is awake and alert, she is sitting up in the recliner, she is currently on 3 L of oxygen, with a pulse ox of 99%, afebrile, she is in A. fib, with a rate of 65 BPM, she was loaded with amiodarone, but in view of rising transaminases amiodarone has been discontinued and patient is currently on beta blockers. Still remains on small dose of Levophed at 3 mics per minute, insulin drip is at 1.5 unit per hour, and 0.9 normal saline at a rate of 20 ML per hour. Today's chest x-ray has been reviewed, showing stable findings, cardiomegaly with mild central vessel congestion and small tooth tiny bilateral pleural effusions and bibasilar atelectasis. Incentive spirometer effort is 750 ML today. Patient is on maintenance dose Lasix at 20 mg IV push every 12 hours. Still positive fluid balance, 1437 ML over the last 24 hours. Lung sounds are p ositive for diffuse crackles throughout, patient is mildly short of breath, but in no acute distress. Today's labs have been reviewed, showing left blood cell count of 16.7, hemoglobin 7.8, platelet count is 57, sodium is 133, potassium is 4.8, chloride is 104, CO2 is 27, B1 is 30 creatinine is 1.37. Mediastinal and left pleural chest tube putting out thin serosanguineous drainage, and there has been 190 out of the left pleural and 417 ML of servicing this drainage from the chest tubes over the last 24 hours. PA pressure is 39/17, and cardiac output and index of 4.7 and 2.1 respectively. On 03/23/2019 patient seen in follow-up in intensive care unit. She sits up in the recliner, she is mildly short of breath, she is currently on 3 L of oxygen with a pulse ox of 90%, hemodynamically stable, controlled A. fib on a monitor with a rate of 81 BPM. Today's chest x-ray has been reviewed showing hypoventilatory lungs, central vascular congestion, and small pleural effusions bilaterally with adjacent bibasilar atelectasis. Patient is on IV Lasix, 21 g every 12 hours, and she is in -490 ML fluid balance over the last 24 hours, left pleural and mediastinal chest tubes are anticipated to be discontinued today by cardiothoracic surgery, there has been 60 mL out of the left pleural and 240 mL of the mediastinal area last 24 hours, thin serosanguineous output. No air leak. Incentive spirometer effort is 750, lung sounds are positive for diminished breath sounds and expiratory wheezing, and fine rales at the left base. Objective - Vital Signs Vital signs: Vital Signs Temp 98.7 F 03/23/19 04:00 Pulse 78 03/23/19 08:11 Resp 16 03/23/19 08:00 BP 89/66 03/23/19 07:00 Pulse Ox 99 03/23/19 07:00 Intake & Output 03/22/19 03/23/19 03/23/19 18:59 06:59 18:59 Intake Total 964.011 225 Output Total 835 845 Balance 129.011 -620 Weight 124.6 kg Intake: IV 386 225 0.9NS @ 10ml/hr 160 Lactated Ringers 320 10 Sodium Chloride 0.9% 500 40 ml 500 ml @ 20 mls/hr IV .Q24H [facility] Rx#:[id number] pressure bags 66 15 Intake, IV Titration 28.011 Amount Insulin Regular 100 unit 3.416 In Sodium Chloride 0.9% 100 ml @ Per Protocol IV .Q0M [facility] Rx#:[id number] Norepinephrine 32 mg In 24.595 Sodium Chloride 0.9% 218 ml @ 0.05 MCG/KG/MIN 2. 745 mls/hr IV .Q24H [facility] Rx#:[id number] Oral 550 Output: Chest Tube Drainage 170 130 Left Pleural 40 20 Mediastinal 130 110 Urine 665 715 Other: Voiding Method Indwelling Catheter Indwelling Catheter Indwelling Catheter ABP, PAP, CO, CI - Last Documented Arterial Blood Pressure 102/67 Pulmonary Artery Pressure 38/16 Cardiac Output 4.7 Cardiac Index 2.1 - Exam GENERAL EXAM: intubated 79-year-old white female patient, on 3 L of oxygen with a pulse ox of 99% mildly short of breath HEAD: Normocephalic/atraumatic. EYES: Normal reaction of pupils, equal size. Conjunctiva pink, sclera white. NOSE: Clear with pink turbinates. THROAT: No erythema or exudates. NECK: No masses, no JVD, no thyroid enlargement, no adenopathy. CHEST: No chest wall deformity. Symmetrical expansion. Midsternal incision is clean dry and intact, covered with surgical dressing, left pleural and mediastinal chest tubes with small amount of serosanguineous output in the [place], with no air leak, cardio wires connected to external pacemaker with a backup rate LUNGS: Equal air entry with no crackles, wheeze, rhonchi or dullness. CVS: Regular rate and rhythm, normal S1 and S2, no gallops, no murmurs, no rubs ABDOMEN: Soft, nontender. No hepatosplenomegaly, normal bowel sounds, no guarding or rigidity. EXTREMITIES: No clubbing, no edema, no cyanosis, 2+ pulses and upper and lower extremities. MUSCULOSKELETAL: Muscle strength and tone normal. SPINE: No scoliosis or deformity SKIN: No rashes CENTRAL NERVOUS SYSTEM: Awake, and alert, oriented times three. No focal deficits, tone is normal in all 4 extremities. - Labs CBC & Chem 7: 03/23/19 05:45 03/23/19 05:45 Labs: Abnormal Lab Results - Last 24 Hours (Table) 03/22/19 03/22/19 03/22/19 Range/Units 10:57 13:24 17:10 WBC (3.8-10.6) k/uL RBC (3.80-5.40) m/uL Hgb (11.4-16.0) gm/dL Hct (34.0-46.0) % RDW (11.5-15.5) % Plt Count (150-450) k/uL Neutrophils # (1.3-7.7) k/uL Sodium (137-145) mmol/L BUN (7-17) mg/dL Creatinine (0.52-1.04) mg/dL Glucose (74-99) mg/dL POC Glucose (mg/dL) 122 H 171 H 107 H (75-99) mg/dL Calcium (8.4-10.2) mg/dL AST (14-36) U/L ALT (9-52) U/L Total Protein (6.3-8.2) g/dL Albumin (3.5-5.0) g/dL 03/22/19 03/23/19 03/23/19 Range/Units 20:43 05:45 05:45 WBC 15.9 H (3.8-10.6) k/uL RBC 2.56 L (3.80-5.40) m/uL Hgb 8.0 L (11.4-16.0) gm/dL Hct 23.5 L (34.0-46.0) % RDW 17.1 H (11.5-15.5) % Plt Count 54 L (150-450) k/uL Neutrophils # 12.7 H (1.3-7.7) k/uL Sodium 132 L (137-145) mmol/L BUN 43 H (7-17) mg/dL Creatinine 1.31 H (0.52-1.04) mg/dL Glucose 110 H (74-99) mg/dL POC Glucose (mg/dL) 146 H (75-99) mg/dL Calcium 8.3 L (8.4-10.2) mg/dL AST 334 H (14-36) U/L ALT 378 H (9-52) U/L Total Protein 4.4 L (6.3-8.2) g/dL Albumin 2.7 L (3.5-5.0) g/dL 03/23/19 03/23/19 Range/Units 05:47 07:12 WBC (3.8-10.6) k/uL RBC (3.80-5.40) m/uL Hgb (11.4-16.0) gm/dL Hct (34.0-46.0) % RDW (11.5-15.5) % Plt Count (150-450) k/uL Neutrophils # (1.3-7.7) k/uL Sodium (137-145) mmol/L BUN (7-17) mg/dL Creatinine (0.52-1.04) mg/dL Glucose (74-99) mg/dL POC Glucose (mg/dL) 121 H 109 H (75-99) mg/dL Calcium (8.4-10.2) mg/dL AST (14-36) U/L ALT (9-52) U/L Total Protein (6.3-8.2) g/dL Albumin (3.5-5.0) g/dL Assessment and Plan Plan: Assessment: #1. Severe aortic valve stenosis, and moderate to severe mitral valve regurgitation, and coronary artery disease status post aortic valve replacement with a bioprosthetic valve, mitral valve repair with the annual flex band, and single vessel bypass grafting with reverse SVG off of the aorta to the circumflex artery and left atrial appendage exclusion with the ATriclip, postop day 4 #2. Postoperative bleeding, status post emergent reexploration of the chest and evacuation of clot and control of bleeding #3. Acute blood loss anemia related to the above, status post transfusion with 6 units of RBCs, 5 units of cryoprecipitate, 3 units of rest frozen plasma, and 2 units of platelets #4. Routine ventilator management #5. Secondary pulmonary hypertension #6. Ischemic cardiomyopathy #7. Hypertension #8. Hyperlipidemia #9. Hypothyroidism Plan: Vasopressor support has been weaned off, today's chest x-ray has been reviewed, showing central vessel congestion, small pleural effusions, changes of fluid overload, continue with IV diuretics, vincristine breathing and coughing, labs have been reviewed, renal profile is relatively stable. Anticipate removal of chest tubes today, we'll follow along with CT surgery. I performed a history & physical examination of the patient and discussed their management with my nurse practitioner, Kassie Og. I reviewed the nurse practitioner's note and agree with the documented findings and plan of care. Lung sounds are positive for diminished breath sounds. The findings and the impression was discussed with the patient. I attest to the documentation by the nurse practitioner. Time with Patient: Less than 30
--- NOTE | 2019-03-23 09:07 | XR ---
EXAMINATION TYPE: XR chest 1V portable DATE OF EXAM: 03/23/2019 COMPARISON: 03/22/2019 HISTORY: Post cardiac surgery TECHNIQUE: Single frontal view of the chest is obtained. FINDINGS: [place] catheter has been removed. Mediastinal drain present. Postsurgical changes and l eft-sided chest tube stable. No sizable pneumothorax. Heart size is stable and there is bilateral con solidation and small effusion. Arthropathy of the shoulders. IMPRESSION: 1. Interval removal [place] catheter with no sizable pneumothorax. 2. Bilateral infiltrate and small effusion stable.
[2019-03-23] MEDS ORDERED: FUROSEMIDE 10 MG/ML 2 ML VIAL IV ONE (12:53)
[2019-03-23] MEDS ORDERED: METOLAZONE 2.5 MG TAB PO SCH (13:00)
--- NOTE | 2019-03-23 13:47 | CDI ---
Documentation Clarification Form Date: 03/22/2019 2:34:00 PM From: Soha Clark RN, CCDS Admit Date: 03/19/2019 5:56:00 AM Patient Name: Yulia Yanes Visit Number: [id number] Discharge Date: ATTENTION: The Clinical Documentation Specialists (CDI) and [facility] Coding Staff appreciate your assistance in clarifying documentation. Please respond to the clarification below the line at the bottom and electronically sign. The CDI & [facility] Coding staff will review the response and follow-up if needed. Please note: Queries are made part of the Legal Health Record. If you have any questions, please contact the author of this message via ITS. Dr. Lloyd Cabrera 03/19/19 post aortic valve replacement, mitral valve repair a postoperative bleed is documented and additional clarification is needed. Patient history/risk factors: Severe aortic valve stenosis with severe aortic valve regurgitation, Coronary artery disease, with EF of 30 % Clinical Indicators: 79-year-old female who was post procedure was noted bleeding through her mediastinal and left pleural chest tubes with 1.3 L of drainage out within the first couple of hours postoperatively. She was hypotensive Vitals:69/40 80 22, 67/48 80 22 110//47 Treatment: Emergent re-exploration of chest, evacuation of clot and control of bleed Transfuse PRBS Levophed Drip Placement of intra-aortic balloon pump Monitor CBC Monitor I/O In your professional opinion, can you please further specify if the above clinical indictors and treatment is? Hemorrhage Shock Hypotension without shock Other, please specify Unable to determine (Last Revision: June 2017) MTDD
--- NOTE | 2019-03-23 13:57 | P.PN ---
Subjective This is Marily Basilio PA-C dictating a progress note on this patient The patient was interviewed and examined by me as well as by Dr. Geiger Case discussed with Dr. Geiger and he agrees with the plan of care IMPRESSION / ASSESSMENT: Aortic stenosis status post aortic valve replacement Mitral regurgitation status post mitral valve repair CAD status post CABG 1 Paroxysmal atrial fibrillation status post atrial appendage ligation, currently in atrial fibrillation, rate controlled Ischemic cardiomyopathy Hypertension, blood pressure stable Dyslipidemia PLAN: Continue medical management of CAD/ischemic cardiomyopathy with beta blockers, low-dose aspirin Plavix currently being held due to thrombocytopenia statins currently being held due to elevated liver enzymes Maximize medical therapy as tolerated HPI/interval history Patient is a 79-year-old female who is postop day 3 status post aortic valve replacement, mitral valve repair, CABG 1, left atrial appendage ligation. She went into atrial fibrillation and was started on it amiodarone but developed elevated liver enzymes so the amiodarone was stopped. She is off pressors.Seen and examined sitting up in her chair, family at bedside. Appears comfortable. States her postop pain and breathing are improving. EXAMINATION Temperature 98.6F, pulse 88, respirations 11, blood pressure 113/78, oxygen saturation 100% on 2 L nasal cannula Seen and examined sitting up in her chair, no acute distress Lungs with few scattered wheezes, mildly diminished bilaterally Heart is irregularly irregular, no murmurs appreciated Mild lower extremity edema bilaterally REVIEW OF LABS, ECG Bedside telemetry reveals atrial fibrillation with controlled ventricular rate WBC 15.9, hemoglobin 8.0, platelets 54, potassium 4.8, BUN 43, creatinine 1.31, AST 334, ALT 378 Objective - Vital Signs Vital signs: Vital Signs Temp 98.6 F 03/23/19 12:00 Pulse 88 03/23/19 13:00 Resp 11 L 03/23/19 13:00 BP 88/75 03/23/19 13:00 Pulse Ox 98 03/23/19 13:00 Intake & Output 03/22/19 03/23/19 03/23/19 18:59 06:59 18:59 Intake Total 964.011 225 330 Output Total 835 845 800 Balance 129.011 -620 -470 Weight 124.6 kg Intake: IV 386 225 0.9NS @ 10ml/hr 160 Lactated Ringers 320 10 Sodium Chloride 0.9% 500 40 ml 500 ml @ 20 mls/hr IV .Q24H [facility] Rx#:[id number] pressure bags 66 15 Intake, IV Titration 28.011 Amount Insulin Regular 100 unit 3.416 In Sodium Chloride 0.9% 100 ml @ Per Protocol IV .Q0M [facility] Rx#:[id number] Norepinephrine 32 mg In 24.595 Sodium Chloride 0.9% 218 ml @ 0.05 MCG/KG/MIN 2. 745 mls/hr IV .Q24H [facility] Rx#:[id number] Oral 550 330 Output: Chest Tube Drainage 170 130 100 Left Pleural 40 20 50 Mediastinal 130 110 50 Urine 665 715 700 Other: Voiding Method Indwelling Catheter Indwelling Catheter Indwelling Catheter ABP, PAP, CO, CI - Last Documented Arterial Blood Pressure 102/67 Pulmonary Artery Pressure 38/16 Cardiac Output 4.7 Cardiac Index 2.1 - Labs CBC & Chem 7: 03/23/19 05:45 03/23/19 05:45 Labs: Abnormal Lab Results - Last 24 Hours (Table) 03/22/19 03/22/19 03/23/19 Range/Units 17:10 20:43 05:45 WBC 15.9 H (3.8-10.6) k/uL RBC 2.56 L (3.80-5.40) m/uL Hgb 8.0 L (11.4-16.0) gm/dL Hct 23.5 L (34.0-46.0) % RDW 17.1 H (11.5-15.5) % Plt Count 54 L (150-450) k/uL Neutrophils # 12.7 H (1.3-7.7) k/uL Sodium (137-145) mmol/L BUN (7-17) mg/dL Creatinine (0.52-1.04) mg/dL Glucose (74-99) mg/dL POC Glucose (mg/dL) 107 H 146 H (75-99) mg/dL Calcium (8.4-10.2) mg/dL AST (14-36) U/L ALT (9-52) U/L Total Protein (6.3-8.2) g/dL Albumin (3.5-5.0) g/dL 03/23/19 03/23/19 03/23/19 Range/Units 05:45 05:47 07:12 WBC (3.8-10.6) k/uL RBC (3.80-5.40) m/uL Hgb (11.4-16.0) gm/dL Hct (34.0-46.0) % RDW (11.5-15.5) % Plt Count (150-450) k/uL Neutrophils # (1.3-7.7) k/uL Sodium 132 L (137-145) mmol/L BUN 43 H (7-17) mg/dL Creatinine 1.31 H (0.52-1.04) mg/dL Glucose 110 H (74-99) mg/dL POC Glucose (mg/dL) 121 H 109 H (75-99) mg/dL Calcium 8.3 L (8.4-10.2) mg/dL AST 334 H (14-36) U/L ALT 378 H (9-52) U/L Total Protein 4.4 L (6.3-8.2) g/dL Albumin 2.7 L (3.5-5.0) g/dL
--- NOTE | 2019-03-23 14:33 | CDI ---
Documentation Clarification Form Date: 03/23/2019 2:01:49 PM From: Soha Clark RN, CCDS Admit Date: 03/19/2019 5:56:00 AM Patient Name: Yulia Yanes Visit Number: [id number] Discharge Date: ATTENTION: The Clinical Documentation Specialists (CDI) and [facility] Coding Staff appreciate your assistance in clarifying documentation. Please respond to the clarification below the line at the bottom and electronically sign. The CDI & [facility] Coding staff will review the response and follow-up if needed. Please note: Queries are made part of the Legal Health Record. If you have any questions, please contact the author of this message via ITS. Dr. Mati Vale Patient was admitted with severe aortic valve stenosis with severe aortic valve regurgitation, History/Risk Factors: Coronary artery disease, Hypertension, Pulmonary hypertension, Hypothyroidism Chronic Renal Failure Clinical Indicators: 79-year-old female who present for elective procedure with labs noted as: BUN 27, CR 1.23 GFR 42, on presentation. Current BUN 27, 24, 23 43 CR 1.23,1.04, 1.09, 1.31 GFR 42, 52, 49, 39 Patients Baseline CR 1.3-1.6 GFR42 Treatment: IVF, Monitor CBC, Lytes In order to capture the severity of condition, please clarify if the condition signifies: CKD Stage 1 (GFR > 90) CKD Stage 2 (GFR 60-89) CKD Stage 3 (GFR 30-59) CKD Stage 4 (GFR 15-29) Other, please specify Unable to determine (Last Revision: December 2017) CTD, stage III MTDD
--- NOTE | 2019-03-23 20:24 | P.PN ---
Subjective Progress Note Date: 03/23/19 This is a 79-year-old female status post CABG X1, aortic valve replacement with bioprosthetic valve, mitral valve repair in a patient with severe aortic valve stenosis, moderate to severe mitral valve regurgitation, CAD, ischemic cardiomyopathy-preop EF 30%, pulmonary hypertension, hypertension, hypothyro idism and multiple other medical issues. Shortly after returning to ICU postop, she developed increased chest tube ouput of 1.3 L over 1-1/2 hours, returned to the OR and required emergent reexploration of the chest with evacuation of clots, control bleeding, placement of IABP. Mediastinal and left pleural chest tube drainage improved. This morning IABP weaned to 1:3 with plans for discontinuing this morning. Continuies on DIprovan, Levophed, Primacor and insulin drips. Cardiac output 7.4, cardiac index 3.4. Maintained on mechanical ventilation with FiO2 40%/+5 of PEEP. Chest x-ray reporting bilateral consolidation and pleural effusion. Telemetry accelerated junctional. 03/21/2019 Extubated yesterday evening.Maintaining O2 sats in the high 90s on 4 L nasal cannula. Incentive spirometer 800 to 1000. Maintained on insulin and Levophed drips. Recent cardiac output/cardiac index 6.1/2.8 .Developed atrial fibrillation last night, received digoxin. Remains in atrial fibrillation, receiving amiodarone bolus with drip pending. Magnesium 2.2, potassium 4.7. Hemoglobin remains stable at 8.5, platelets 62. creatinine 1.26 .Pain controlled. 03/22/2019 maintained on insulin, amiodarone, Levophed drips. Telemetry atrial fibrillation. Amiodarone discontinued secondary to elevated transminases; continues on metoprolol. Arixtra initiated. IS up to 1000. Maintaining O2 sats in the high 90s on 4 L nasal cannula. Chest x-ray reporting mild central vascular congestion, small bilateral pleural effusions and bibasilar acute infiltrates versus atelectasis-no significant change. Maintained on Lasix IV push with 24-hour I&O reflecting a positive fluid balance. 24-hour I&O reflects mediastinal chest tube for 417mls and left pleural chest tube 190mls in the next 24 hours.Hemoglobin 7.8, platelets 57. CO/CI 4.7/2.1. Creatinine 1.37. T-max 100.8, WBC 16.7. Blood sugars controlled. 03/23/2019 All drips have been weaned off. Cardiology discussing removing both pleural and mediastinal chest tubes today .Telemetry controlled atrial fibrillation on beta heriberto. Mild shortness of breath, maintaining O2 sats in the mid 90s on 3 L nasal cannula. Chest x-ray reporting bilateral atelectasis, stable small effusion, fluid overload. IS up to 750. Diuresing well on Lasix IV push with 24-hour I&O reflecting a negative fluid balance. Objective - Vital Signs Vital signs: Vital Signs Temp 98.6 F 03/23/19 12:00 Pulse 82 03/23/19 16:00 Resp 14 03/23/19 16:00 BP 95/68 03/23/19 16:00 Pulse Ox 99 03/23/19 16:00 Intake & Output 03/22/19 03/23/19 03/23/19 18:59 06:59 18:59 Intake Total 964.011 225 530 Output Total 835 845 950 Balance 129.011 -620 -420 Weight 124.6 kg Intake: IV 386 225 0.9NS @ 10ml/hr 160 Lactated Ringers 320 10 Sodium Chloride 0.9% 500 40 ml 500 ml @ 20 mls/hr IV .Q24H [facility] Rx#:[id number] pressure bags 66 15 Intake, IV Titration 28.011 Amount Insulin Regular 100 unit 3.416 In Sodium Chloride 0.9% 100 ml @ Per Protocol IV .Q0M [facility] Rx#:[id number] Norepinephrine 32 mg In 24.595 Sodium Chloride 0.9% 218 ml @ 0.05 MCG/KG/MIN 2. 745 mls/hr IV .Q24H [facility] Rx#:[id number] Oral 550 530 Output: Chest Tube Drainage 170 130 100 Left Pleural 40 20 50 Mediastinal 130 110 50 Urine 665 715 850 Other: Voiding Method Indwelling Catheter Indwelling Catheter Indwelling Catheter # Bowel Movements 1 ABP, PAP, CO, CI - Last Documented Arterial Blood Pressure 102/67 Pulmonary Artery Pressure 38/16 Cardiac Output 4.7 Cardiac Index 2.1 - Exam PHYSICAL EXAM: VITAL SIGNS: As above GENERAL: Sitting up in recliner, no acute distress, minimal shortness of breath HEENT: Conjunctivae normal. eyes normal. Oral mucosa moist NECK: No JVD. No thyroid enlargement. No LNs. Cordis present CARDIOVASCULAR: S1, S2 irregular. No murmur, rubs or gallops. RESPIRATION: Breath sounds diminished in the bases. No rhonchi, no crackles, expiratory wheezing. Mediastinal and left pleural chest tubes present, with serosanguineous drainage ABDOMEN: Soft, nontender . No guarding. No hepatosplenomegaly. no masses palpable. Positive Bowel sounds. LEGS: Generalized edema, positive peripheral pulses, LAUREL hose. PSYCHIATRY: Alert and oriented 3 NERVOUS SYSTEM: Cranial nerves II through XII grossly intact, moves all 4 extremities, mild diffuse generalized weakness. No focal deficits. Strength and sensation grossly intact. Skin: Generalized mild edema ,no lesions, no rash. No clubbing, no cyanosis. - Labs CBC & Chem 7: 03/23/19 05:45 03/23/19 05:45 Labs: Abnormal Lab Results - Last 24 Hours (Table) 03/22/19 03/22/19 03/23/19 Range/Units 17:10 20:43 05:45 WBC 15.9 H (3.8-10.6) k/uL RBC 2.56 L (3.80-5.40) m/uL Hgb 8.0 L (11.4-16.0) gm/dL Hct 23.5 L (34.0-46.0) % RDW 17.1 H (11.5-15.5) % Plt Count 54 L (150-450) k/uL Neutrophils # 12.7 H (1.3-7.7) k/uL Sodium (137-145) mmol/L BUN (7-17) mg/dL Creatinine (0.52-1.04) mg/dL Glucose (74-99) mg/dL POC Glucose (mg/dL) 107 H 146 H (75-99) mg/dL Calcium (8.4-10.2) mg/dL AST (14-36) U/L ALT (9-52) U/L Total Protein (6.3-8.2) g/dL Albumin (3.5-5.0) g/dL 03/23/19 03/23/19 03/23/19 Range/Units 05:45 05:47 07:12 WBC (3.8-10.6) k/uL RBC (3.80-5.40) m/uL Hgb (11.4-16.0) gm/dL Hct (34.0-46.0) % RDW (11.5-15.5) % Plt Count (150-450) k/uL Neutrophils # (1.3-7.7) k/uL Sodium 132 L (137-145) mmol/L BUN 43 H (7-17) mg/dL Creatinine 1.31 H (0.52-1.04) mg/dL Glucose 110 H (74-99) mg/dL POC Glucose (mg/dL) 121 H 109 H (75-99) mg/dL Calcium 8.3 L (8.4-10.2) mg/dL AST 334 H (14-36) U/L ALT 378 H (9-52) U/L Total Protein 4.4 L (6.3-8.2) g/dL Albumin 2.7 L (3.5-5.0) g/dL Assessment and Plan Assessment: -Status post CABG 1 with Aortic and Mitral valve repair with left atrial appendage exclusion, secondary to severe aortic valve stenosis and moderate to severe mitral valve regurgitation. Bioprosthetic aortic valve. -Acute postoperative bleeding, unexpected outcome, status post emergent reexploration, evacuation of clot and control of bleeding, placement of IABP. -Acute blood loss anemia secondary to the above, status post transfusions of multiple products; RBCs, cryoprecipitate, FFP, platelets -Postoperative hypotension, unexpected outcome, status post pressor dependent -Hemorrhagic shock, unexpected -Thrombocytopenia, reactive -Postoperative atrial fibrillation, controlled -Secondary pulmonary hypertension -Chronic systolic CHF, Ischemic cardiomyopathy, preop EF 30% -Hyperlipidemia -Hypertension, history of -Hypothyroidism -Right ICA stenosis 50-70% -History of nicotine dependence -CKD, stage III Plan: Continue current medication regime , beta heriberto, statin, aspirin monitoring and symptomatic treatment.pain management. Continue nebulized bronchodilators. Increase ambulation as tolerated. PT/OT. Aggressive pulmonary toileting with incentive spirometer reinforced. Close monitoring of Accu-Cheks .Close monitoring of hemoglobin, platelets, renal function, electrolytes with repeat labs ordered for a.m. cleared for transfer to [facility] by cardiothoracic surgery .Further recommendations to follow. The impression and plan of care has been dictated as directed. : I performed a history and examination of this patient, discussed the same with the dictator. I agree with the dictator's note ,documented as a scribe. Any additional findings or plans will be noted. Time taken: 35 minutes.
[2019-03-23] MEDS: SENNOSIDES-DOCUSATE SODIUM 1 EACH TAB PO SCH (20:47)
[2019-03-23] MEDS: MUPIROCIN 2% OINT 22 GM TUBE NASAL SCH (20:58)
[2019-03-23] MEDS: FUROSEMIDE 10 MG/ML 4 ML VIAL IV SCH (20:58)
[2019-03-23 21:09] LABS: Glucose,Whole Blood 132 mg/dL (75-99)
[2019-03-24] MEDS: HYDROcodone/APAP 5-325MG 1 EACH TAB PO PRN ×2 (03:49→17:22)
[2019-03-24 05:42] LABS: Anisocytosis Slight; HCT 22.9 % (34.0-46.0); HGB 7.6 gm/dL (11.4-16.0); MCH 31.1 pg (25.0-35.0); MCHC 32.9 g/dL (31.0-37.0); MCV 94.4 fL (80.0-100.0); Mean Platelet Volume 9.4; Platelet Count 68 k/uL (150-450); RBC 2.43 m/uL (3.80-5.40); RDW 17.9 % (11.5-15.5); WBC 14.5 k/uL (3.8-10.6)
[2019-03-24 05:49] LABS: Calcium 8.3 mg/dL (8.4-10.2); Potassium 4.3 mmol/L (3.5-5.1)
[2019-03-24] MEDS: PANTOPRAZOLE 40 MG TABLET PO SCH (06:08)
[2019-03-24] MEDS: ASCORBIC ACID 500 MG TAB PO SCH ×2 (06:08→17:22)
[2019-03-24] MEDS: FERROUS SULFATE 325 MG TAB PO SCH ×2 (06:08→17:22)
[2019-03-24] MEDS: LEVOTHYROXINE 50 MCG TAB PO SCH (06:08)
[2019-03-24 06:50] LABS: Glucose,Whole Blood 101 mg/dL (75-99)
--- NOTE | 2019-03-24 06:51 | XR ---
EXAMINATION TYPE: XR chest 2V DATE OF EXAM: 03/24/2019 HISTORY: post cardiac surgery. REFERENCE: Previous study dated 03/23/2019. FINDINGS: There has been a midline sternotomy. The heart is enlarged. There is apparent elevation of the right hemidiaphragm. There is right basilar atelectasis. There are small, bilateral effusions. IMPRESSION: CONTINUING POSTSURGICAL CHANGE.
[2019-03-24] MEDS: INSULIN ASPART (NovoLOG) 100 UNIT/ML VIAL SQ SCH ×4 (06:58→20:29)
[2019-03-24] MEDS: IPRATROPIUM-ALBUTEROL 3 ML NEB INHALATION SCH ×4 (07:49→20:27)
--- NOTE | 2019-03-24 09:00 | P.PN ---
Subjective Progress Note Date: 03/24/19 Principal diagnosis: Severe aortic valve stenosis, moderate to severe mitral valve regurgitation, single-vessel coronary artery disease, and a decreased LV function, chronic systolic heart failure with a preoperative ejection fraction of 30%. History of hypertension, hyperlipidemia, hypothyroid, osteoarthritis, chronic renal failure with baseline creatinine 1.3-1.6, right internal carotid artery stenosis 50-70%, previous tobacco dependance with preoperative FEV1 93% of predicted. POD #5 aortic valve replacement with a #23 mm Avalus bioprosthetic Medtronic aortic valve, mitral valve repair with a #30 mm Carbomedics AnnuloFlex band. Coronary artery bypass grafting 1 vessel with a reverse greater saphenous vein off the aorta to the circumflex coronary artery and a clip ligation of the left atrial appendage with a 35 mm Atriclip. Endoscopic harvesting of the left gre ater saphenous vein. Intraoperative transesophageal echocardiogram. Acute postoperative bleeding, an unexpected outcome Reactive thrombocytopenia, expected POD #5 Emergent re-exploration of the chest, evacuation of clots and control of bleed. Placement of intra-aortic balloon pump. Post operative atrial fibrillation, unexpected. Transaminitis, unexpected. The patient is sitting up to the bedside chair in the intensive care unit. She is in no acute distress. She denies any complaints of pain or shortness of breath at this time. She remains hemodynamically stable and is on no inotropic or pressor support. Bedside telemetry demonstrates atrial fibrillation heart rate 93. The patient reports that she has been ambulating in her room to the doorway with minimal assistance. Oxygen saturations are 96% on 2 L nasal cannula and she is achieving 1000 mL with much encouragement on her incentive spirometry. Her heart hugger is in place and she is demonstrating appropriate use. Objective - Vital Signs Vital signs: Vital Signs Temp 98.8 F 03/24/19 04:00 Pulse 83 03/24/19 07:56 Resp 18 03/24/19 04:00 BP 111/83 03/24/19 04:00 Pulse Ox 99 03/24/19 04:00 Intake & Output 03/23/19 03/24/19 03/24/19 18:59 06:59 18:59 Intake Total 530 100 Output Total 950 2190 Balance -420 -2089 Intake: Oral 530 100 Output: Chest Tube Drainage 100 Left Pleural 50 Mediastinal 50 Urine 850 2190 Other: Voiding Method Bedside Commode Bedside Commode Bedpan # Bowel Movements 1 ABP, PAP, CO, CI - Last Documented Arterial Blood Pressure 102/67 Pulmonary Artery Pressure 38/16 Cardiac Output 4.7 Cardiac Index 2.1 - Constitutional General appearance: Present: cooperative, morbidly obese, no acute distress - Respiratory Details: Lung sounds with expiratory wheezes throughout, diminished bilateral bases right greater than left. Respirations are symmetrical and nonlabored. Oxygen saturation is 96% on 2 L nasal cannula. Achieving 1000 mL on her incentive spirometry. - Cardiovascular Details: Irregular rhythm with controlled rate consistent with atrial fibrillation. S1 and S2 present, negative for S3, gallop or murmur. Sternum is stable. +1 generalized edema. Knee-high LAUREL hose and sequential compression devices in place to bilateral lower extremities. - Gastrointestinal Gastrointestinal Comment(s): Abdomen soft, nontender and nondistended. Active bowel sounds all 4 abdominal quadrants. Bowel movement yesterday. No guarding or rigidity. No organomegaly. - Genitourinary Genitourinary Comment(s): Voiding clear yellow urine. - Integumentary Integumentary Comment(s): Skin is warm and dry. No clubbing or cyanosis is present. Midline sternal incision is clean, dry and approximated. Some ecchymosis surrounding her midline sternal incision. No drainage or redness is present. Left lower extremity EVH site is clean, dry and approximated. No drainage or redness is present. - Neurologic Neurologic: Present: CNII-XII intact - Musculoskeletal Musculoskeletal: Present: gait normal, generalized weakness, strength equal bilaterally - Psychiatric Psychiatric: Present: A&O x's 3, appropriate affect, intact judgment & insight - Allied health notes Allied health notes reviewed: nursing - Labs CBC & Chem 7: 03/24/19 05:28 03/24/19 05:28 Labs: Abnormal Lab Results - Last 24 Hours (Table) 03/23/19 03/24/19 03/24/19 Range/Units 20:57 05:28 05:28 WBC 14.5 H (3.8-10.6) k/uL RBC 2.43 L (3.80-5.40) m/uL Hgb 7.6 L (11.4-16.0) gm/dL Hct 22.9 L (34.0-46.0) % RDW 17.9 H (11.5-15.5) % Plt Count 68 L (150-450) k/uL Sodium 131 L (137-145) mmol/L Chloride 96 L (98-107) mmol/L BUN 50 H (7-17) mg/dL Creatinine 1.49 H (0.52-1.04) mg/dL Glucose 107 H (74-99) mg/dL POC Glucose (mg/dL) 132 H (75-99) mg/dL Calcium 8.3 L (8.4-10.2) mg/dL 03/24/19 Range/Units 06:39 WBC (3.8-10.6) k/uL RBC (3.80-5.40) m/uL Hgb (11.4-16.0) gm/dL Hct (34.0-46.0) % RDW (11.5-15.5) % Plt Count (150-450) k/uL Sodium (137-145) mmol/L Chloride (98-107) mmol/L BUN (7-17) mg/dL Creatinine (0.52-1.04) mg/dL Glucose (74-99) mg/dL POC Glucose (mg/dL) 101 H (75-99) mg/dL Calcium (8.4-10.2) mg/dL - Imaging and Cardiology Chest x-ray: report reviewed, image reviewed Assessment and Plan Assessment: 1. Aortic valve stenosis, with severe aortic valve regurgitation, status post aortic valve replacement 2. Moderate to severe mitral valve regurgitation, status post mitral valve repair 3. Single-vessel coronary artery disease, status post coronary artery bypass grafting surgery 1 vessel 4. Decreased LV function with preoperative ejection fraction of 30% 5. Hypertension 6. Hyperlipidemia 7. Hypothyroid 8. Non-critical carotid stenosis with a 50-70% right ICA stenosis 9. Acute postoperative bleeding, an unexpected outcome 10. Postoperative Hypotension, resolved 11. Chronic renal failure, baseline creatinine 1.3-1.6 12. Thrombocytopenia, reactive HIT panel negative 13. Postoperative paroxysmal atrial fibrillation, status post clip ligation of the left atrial appendage 14. Transaminitis 15. Osteoarthritis Plan: 1. Continue to maximize medical therapy with aspirin and beta heriberto. We will increase her metoprolol tartrate 25 mg by mouth twice a day. 2. Wean oxygen as tolerated. Encourage use of her incentive spirometry every hour while awake. 3. Continue to hold statin and amiodarone. We will restart her statin once her liver enzymes have normalized. 4. Bronchodilators management per pulmonary medicine. 5. Monitor daily labs and chest x-rays. Replace electrolytes per protocol. 6. GI and DVT prophylaxis. 7. Pain control current medication regimen. No Toradol due to her elevated BUN and creatinine. 8. Continue IV Lasix 40 mg BID. Discontinue her Zaroxolyn today. 9. Continue Iron, vitamin C. hemoglobin 7.6 this a.m. 10. Transferred 3 S cardiac stepdown unit when a bed available. 11. Insulin management per primary care service. 12. Discharge planning in progress. Anticipate discharge to home with home care. May need rehab if unable to ambulate in the hallway. Increase activity as tolerated, physical therapy, occupational therapy and cardiac rehab following. 13. Continue daily weights. 14. More recommendations to follow based on patient's clinical course. Time with Patient: Greater than 30
[2019-03-24 09:22] LABS: ALT 392 U/L (9-52); AST 221 U/L (14-36)
--- NOTE | 2019-03-24 09:40 | P.PN ---
Subjective Progress Note Date: 03/24/19 Principal diagnosis: Severe aortic stenosis and regurgitation, moderate to severe mitral regurgitation, one-vessel coronary artery disease. This is a 79-year-old white female patient of Dr. Mati Vale, with a known history of aortic stenosis and regurgitation, hypertension, hyperlipidemia, hypothyroidism, moderate noncritical carotid artery stenosis, who was found to have significant decrease in LV function based on her echocardiogram in December 2018 with systolic/diastolic dysfunction. Recent underwent transesophageal echocardiogram on 02/05/2019 showing sclerotic and calcific aortic valve with severe aortic stenosis with area of the aortic valve calculated in the range of 1-1.1. There was moderate degree of mitral regurgitation, severely impaired left ventricle systolic function with estimated ejection fraction of 30%, and no evidence of thrombus in the left atrial appendage. Catheterization showed diffusely diseased LAD distally, RCA was dominant and disease free, circumflex had a 60-70% mid lesion. Yesterday on 03/19/2019 patient underwent aortic valve replacement with a #23 mm a villous hypostatic Med[employer] aortic valve, mitral valve repair with a #30 mm [employer] annular flex band, and single-vessel coronary artery bypass grafting with reverse SVG to the circumflex and ligation of the left atrial appendage with a #35 mm Atriclip. Patient had increased bleeding from the mediastinal chest tube first few hours of postoperative recovery, with at 1300 mL of sanguinous output in the first hour and a half. She was taken back to the OR for reexploration on 03/19/2019, and there was a large amount of clot present in and around the heart, with an area of slight degloving of the epicardium off of the anterolateral surface of the right ventricle. The clot was evacuated, hemostasis Was achieved by applying a patch. Patient was placed on the intra-aortic balloon pump via the right femoral artery and this morning she seen in follow-up in the intensive care unit. She remains sedated and intubated on mechanical ventilator, current vent settings are assist control mode of ventilation with a rate of 18, Tylenol 500, FiO2 40% and PEEP of 5, this morning's blood gas showed pO2 of 92, pCO2 38, and pH of 7.48, the mild degree of metabolic alkalosis. Repeat blood gas was also reviewed, after the rate was dropped down from 22-18, and showed pO2 of 76, pCO2 of 39, and pH of 7.47. Patient has received a total of 6 units of packed red blood cells, 5 of cryoprecipitate, 3 of fresh frozen plasma, and 2 units of platelets, this morning's blood work shows white blood cell count of 10.5, hemoglobin is 8.2, platelet count is 93, INR is 1.2, sodium is 140, potassium is 4.1, chloride was 109, CO2 is 27, B1 is 24 creatinine is 1.16. Aortic balloon pump is 123 augmentation, current drips include lactate urine is at a rate of 50 ML per hour, liters it is at 21 mics per minute, Diprivan is at 40 mics per kilo per minute, milrinone is at 0.2 mics per kilo per minute, nitroglycerin is off, and insulin drip is at 3 units per hour. Left pleural and left mediastinal chest tubes are in place, there has been a total of 246 mL out of the left pleural, and 800 mL out of the mediastinal chest tube in the last 12 hours, and chest tube output is averaging 10-30 ML per hour in the last several hours. Urine output is 40-60 ML per hour. She is in junctional rhythm with a controlled rate, epicardial wires to external pacemaker box with backup rate. Cardiac output is 6.6 and cardiac index is 3.0. Patient is waking up and following command, today's chest x-ray has been reviewed showing bilateral consolidation and pleural effusions, no pneumothorax. On 03/22/2019 patient is seen in follow-up in the intensive care unit, today is postop day 3, status post aortic valve replacement with a bioprosthetic valve, mitral valve repair with annular flex band, and [place] vessel bypass grafting. Patient is awake and alert, she is sitting up in the recliner, she is currently on 3 L of oxygen, with a pulse ox of 99%, afebrile, she is in A. fib, with a r ate of 65 BPM, she was loaded with amiodarone, but in view of rising transaminases amiodarone has been discontinued and patient is currently on beta blockers. Still remains on small dose of Levophed at 3 mics per minute, insulin drip is at 1.5 unit per hour, and 0.9 normal saline at a rate of 20 ML per hour. Today's chest x-ray has been reviewed, showing stable findings, cardiomegaly with mild central vessel congestion and small tooth tiny bilateral pleural effusions and bibasilar atelectasis. Incentive spirometer effort is 750 ML today. Patient is on maintenance dose Lasix at 20 mg IV push every 12 hours. Still positive fluid balance, 1437 ML over the last 24 hours. Lung sounds are positive for diffuse crackles throughout, patient is mildly short of breath, but in no acute distress. Today's labs have been reviewed, showing left blood cell count of 16.7, hemoglobin 7.8, platelet count is 57, sodium is 133, potassium is 4.8, chloride is 104, CO2 is 27, B1 is 30 creatinine is 1.37. Mediastinal and left pleural chest tube putting out thin serosanguineous drainage, and there has been 190 out of the left pleural and 417 ML of servicing this drainage from the chest tubes over the last 24 hours. PA pressure is 39/17, and cardiac output and index of 4.7 and 2.1 respectively. On 03/23/2019 patient seen in follow-up in intensive care unit. She sits up in the recliner, she is mildly short of breath, she is currently on 3 L of oxygen with a pulse ox of 90%, hemodynamically stable, controlled A. fib on a monitor with a rate of 81 BPM. Today's chest x-ray has been reviewed showing hypoventilatory lungs, central vascular congestion, and small pleural effusions bilaterally with adjacent bibasilar atelectasis. Patient is on IV Lasix, 21 g every 12 hours, and she is in -490 ML fluid balance over the last 24 hours, left pleural and mediastinal chest tubes are anticipated to be discontinued today by cardiothoracic surgery, there has been 60 mL out of the left pleural and 240 mL of the mediastinal area last 24 hours, thin serosanguineous output. No air leak. Incentive spirometer effort is 750, lung sounds are positive for diminished breath sounds and expiratory wheezing, and fine rales at the left base. The patient is seen today 03/24/2018 in follow-up in the intensive care unit. She is currently sitting up in a chair at the bedside. Awake and alert in no acute distress. Currently maintaining good O2 saturations in the 90s on 2 L/m per nasal cannula. Chest x-ray reveals cardiomegaly, elevation of the right hemidiaphragm and right basilar atelectasis with small bilateral effusions. She is working well with the incentive spirometer. She's been afebrile. Hemodynamically stable. No current drips. She is status post 6 units of packed red blood cells 3 units of fresh frozen plasma and 2 units of platelets. White count 14.5. Hemoglobin 7.6. Platelets 68,000. Creatinine 1.49. AST 221, ALT 392. She is less edematous today. Lasix 40 mg IV every 12 hours now. Objective - Vital Signs Vital signs: Vital Signs Temp 98.8 F 03/24/19 04:00 Pulse 83 03/24/19 07:56 Resp 18 03/24/19 04:00 BP 111/83 03/24/19 04:00 Pulse Ox 99 03/24/19 04:00 Intake & Output 03/23/19 03/24/19 03/24/19 18:59 06:59 18:59 Intake Total 530 100 Output Total 950 2190 Balance -420 -2090 Intake: Oral 530 100 Output: Chest Tube Drainage 100 Left Pleural 50 Mediastinal 50 Urine 850 2190 Other: Voiding Method Bedside Commode Bedside Commode Bedpan # Bowel Movements 1 ABP, PAP, CO, CI - Last Documented Arterial Blood Pressure 102/67 Pulmonary Artery Pressure 38/16 Cardiac Output 4.7 Cardiac Index 2.1 - Exam GENERAL EXAM: Alert, oriented 79-year-old white female patient, on 2 L in no acute distress. HEAD: Normocephalic/atraumatic. EYES: Normal reaction of pupils, equal size. Conjunctiva pink, sclera white. NOSE: Clear with pink turbinates. THROAT: No erythema or exudates. NECK: No masses, no JVD, no thyroid enlargement, no adenopathy. CHEST: No chest wall deformity. Symmetrical expansion. Midsternal incision is clean dry and intact, covered with surgical dressing. LUNGS: Equal air entry with crackles in the right posterior base, diminished CVS: Regular rate and rhythm, normal S1 and S2, no gallops, no murmurs, no rubs ABDOMEN: Soft, nontender. No hepatosplenomegaly, normal bowel sounds, no guarding or rigidity. EXTREMITIES: No clubbing, no edema, no cyanosis, 2+ pulses and upper and lower extremities. MUSCULOSKELETAL: Muscle strength and tone normal. SPINE: No scoliosis or deformity SKIN: No rashes CENTRAL NERVOUS SYSTEM: Awake, and alert, oriented times three. No focal deficits, tone is normal in all 4 extremities. - Labs CBC & Chem 7: 03/24/19 05:28 03/24/19 05:28 Labs: Abnormal Lab Results - Last 24 Hours (Table) 03/23/19 03/24/19 03/24/19 Range/Units 20:57 05:28 05:28 WBC 14.5 H (3.8-10.6) k/uL RBC 2.43 L (3.80-5.40) m/uL Hgb 7.6 L (11.4-16.0) gm/dL Hct 22.9 L (34.0-46.0) % RDW 17.9 H (11.5-15.5) % Plt Count 68 L (150-450) k/uL Sodium 131 L (137-145) mmol/L Chloride 96 L (98-107) mmol/L BUN 50 H (7-17) mg/dL Creatinine 1.49 H (0.52-1.04) mg/dL Glucose 107 H (74-99) mg/dL POC Glucose (mg/dL) 132 H (75-99) mg/dL Calcium 8.3 L (8.4-10.2) mg/dL AST (14-36) U/L ALT (9-52) U/L 03/24/19 03/24/19 Range/Units 05:28 06:39 WBC (3.8-10.6) k/uL RBC (3.80-5.40) m/uL Hgb (11.4-16.0) gm/dL Hct (34.0-46.0) % RDW (11.5-15.5) % Plt Count (150-450) k/uL Sodium (137-145) mmol/L Chloride (98-107) mmol/L BUN (7-17) mg/dL Creatinine (0.52-1.04) mg/dL Glucose (74-99) mg/dL POC Glucose (mg/dL) 101 H (75-99) mg/dL Calcium (8.4-10.2) mg/dL AST 221 H (14-36) U/L ALT 392 H (9-52) U/L Assessment and Plan Assessment: Assessment: #1. Severe aortic valve stenosis, and moderate to severe mitral valve regurgitation, and coronary artery disease status post aortic valve replacement with a bioprosthetic valve, mitral valve repair with the annual flex band, and single vessel bypass grafting with reverse SVG off of the aorta to the circumflex artery and left atrial appendage exclusion with the ATriclip, postop day 5 #2. Postoperative bleeding, status post emergent reexploration of the chest and evacuation of clot and control of bleeding #3. Acute blood loss anemia related to the above, status post transfusion with 6 units of RBCs, 5 units of cryoprecipitate, 3 units of rest frozen plasma, and 2 units of platelets #4. Routine ventilator management #5. Secondary pulmonary hypertension #6. Ischemic cardiomyopathy #7. Hypertension #8. Hyperlipidemia #9. Hypothyroidism Plan: The patient was seen and evaluated by Dr. Osborn. Chest x-ray and labs reviewed. She is improved today as far as her pulmonary status is concerned. Continues to work with the incentive spirometer. On 2 L nasal cannula. Continued on IV diuretics. Less edema today. We'll increase her activity as tolerated. We will continue to follow and make further recommendations based on her clinical status. I, the cosigning physician, performed a history & physical examination of the patient. Lungs sounds crackles in the right base, diminished. Maintaining good O2 saturations in the 90s on 2 L/m per nasal cannula. I discussed the assessment and plan of care with my nurse practitioner, Ariella Betancourt. I attest to the above note as dictated by her.
[2019-03-24] MEDS: FONDAPARINUX 2.5 MG/0.5 ML SYRINGE SQ SCH (09:50)
[2019-03-24] MEDS: FUROSEMIDE 10 MG/ML 4 ML VIAL IV SCH ×2 (09:50→20:28)
[2019-03-24] MEDS: ASPIRIN 81 MG PO SCH (09:50)
[2019-03-24] MEDS: METOPROLOL TARTRATE 25 MG TAB PO SCH ×2 (09:50→20:28)
[2019-03-24] MEDS: CHOLECALCIFEROL 1,000 UNIT TAB PO SCH (09:50)
[2019-03-24] MEDS: MUPIROCIN 2% OINT 22 GM TUBE NASAL SCH ×2 (09:51→20:29)
[2019-03-24 11:57] LABS: Glucose,Whole Blood 107 mg/dL (75-99)
--- NOTE | 2019-03-24 15:20 | P.PN ---
Subjective Progress Note Date: 03/24/19 this is a 79-year-old femalewith history of aortic valve replacement and mitral valves repair and also single-vessel bypass surgery. Patient seemed to be gradually progressing. She was able to walk to the bathroom. She is sitting in the chair and appears to be in mild distress. She does complain of exertional shortness of breath. Patient had atrial fibrillation and was on amiodarone which was discontinued because of elevated liver enzymes.chest x-ray showed a car or megaly with elevated right hemidiaphragm and right basilar atelectasis. Patient did require some blood transfusion following reexploration for bleeding. Her creatinine is 1.49. Hemoglobin is 7.6. AST 221 on the Altace to 92.pat ient is making slow but gradual progress Objective - Vital Signs Vital signs: Vital Signs Temp 98.8 F 03/24/19 04:00 Pulse 82 03/24/19 11:39 Resp 18 03/24/19 04:00 BP 111/83 03/24/19 04:00 Pulse Ox 99 03/24/19 04:00 Intake & Output 03/23/19 03/24/19 03/24/19 18:59 06:59 18:59 Intake Total 530 100 Output Total 950 2190 Balance -420 -0 Intake: Oral 530 100 Output: Chest Tube Drainage 100 Left Pleural 50 Mediastinal 50 Urine 850 2190 Other: Voiding Method Bedside Commode Bedside Commode Bedpan # Bowel Movements 1 ABP, PAP, CO, CI - Last Documented Arterial Blood Pressure 102/67 Pulmonary Artery Pressure 38/16 Cardiac Output 4.7 Cardiac Index 2.1 - Exam GENERAL EXAM: Patient is alert and oriented and doesn't appear to be in any acute distress HEENT: Normocephalic. Normal reaction of pupils, equal size, normal range of extraocular motion. No erythema or exudates in the throat. NECK: No masses, no nuchal rigidity. CHEST: No chest wall deformity. LUNGS: iminished air exchange HEART: [S1 and S2 normal with no audible mumurs or gallops. irregular rhythm ABDOMEN: No hepatosplenomegaly, normal bowel sounds, no guarding or rigidity. SKIN: No rashes CENTRAL NERVOUS SYSTEM: No focal deficits. EXTREMITIES: [No cyanosis, clubbing or edema.][place]illa defaults - Labs CBC & Chem 7: 03/24/19 05:28 03/24/19 05:28 Labs: Abnormal Lab Results - Last 24 Hours (Table) 03/23/19 03/24/19 03/24/19 Range/Units 20:57 05:28 05:28 WBC 14.5 H (3.8-10.6) k/uL RBC 2.43 L (3.80-5.40) m/uL Hgb 7.6 L (11.4-16.0) gm/dL Hct 22.9 L (34.0-46.0) % RDW 17.9 H (11.5-15.5) % Plt Count 68 L (150-450) k/uL Sodium 131 L (137-145) mmol/L Chloride 96 L (98-107) mmol/L BUN 50 H (7-17) mg/dL Creatinine 1.49 H (0.52-1.04) mg/dL Glucose 107 H (74-99) mg/dL POC Glucose (mg/dL) 132 H (75-99) mg/dL Calcium 8.3 L (8.4-10.2) mg/dL AST (14-36) U/L ALT (9-52) U/L 03/24/19 03/24/19 03/24/19 Range/Units 05:28 06:39 11:46 WBC (3.8-10.6) k/uL RBC (3.80-5.40) m/uL Hgb (11.4-16.0) gm/dL Hct (34.0-46.0) % RDW (11.5-15.5) % Plt Count (150-450) k/uL Sodium (137-145) mmol/L Chloride (98-107) mmol/L BUN (7-17) mg/dL Creatinine (0.52-1.04) mg/dL Glucose (74-99) mg/dL POC Glucose (mg/dL) 101 H 107 H (75-99) mg/dL Calcium (8.4-10.2) mg/dL AST 221 H (14-36) U/L ALT 392 H (9-52) U/L Assessment and Plan (1) Status post aortic valve replacement Current Visit: Yes Status: Acute Code(s): Z95.2 - PRESENCE OF PROSTHETIC HEART VALVE SNOMED Code(s): 7561520519823 (2) History of mitral valve repair Current Visit: Yes Status: Acute Code(s): Z98.890 - OTHER SPECIFIED POSTPROCEDURAL STATES SNOMED Code(s): 405550970 (3) Cardiomyopathy Current Visit: Yes Status: Acute Code(s): I42.9 - CARDIOMYOPATHY, UNSPECIFIED SNOMED Code(s): 52992261 (4) Postoperative atrial fibrillation Current Visit: Yes Status: Acute Code(s): I97.89 - OTH POSTPROC COMP AND DISORDERS OF THE CIRC SYS, NEC; I48.91 - UNSPECIFIED ATRIAL FIBRILLATION SNOMED Code(s): 01872049 Plan: ontinue current medical therapy. Increase activity as tolerated. Incentive spirometry.
[2019-03-24] MEDS: CHLORHEXIDINE GLUCONATE 15 ML CUP MUCOUS MEM SCH (16:23)
[2019-03-24 17:22] LABS: Glucose,Whole Blood 126 mg/dL (75-99)
--- NOTE | 2019-03-24 17:47 | P.PN ---
Subjective Progress Note Date: 03/24/19 Principal diagnosis: Severe aortic stenosis and regurgitation- status post aortic wall replacement with a bioprosthetic valve Ms. Yanes is a 79-year-old female with the past medical history of aortic stenosis and regurgitation, hypertension, hypothyroidism, ischemic cardiomyo poncho with EF of 30%, pulmonary hypertension admitted to the hospital for aortic valve replacement, mitral wall repair and CABG. Her postoperative course was complicated requiring re-exploration of the chest and placement of intra-aortic balloon pump. Patient also received multiple blood transfusions. Patient remained intubated until the . On the she has been extubated and went into atrial fibrillation for which she was started on amiodarone drip. Another complication is that she developed small bilateral pleural effusion with bilateral infiltrates versus atelectasis, she was eventually had left chest tube and mediastinal chest tube in place. Her pleural and mediastinal chest tubes were removed yesterday. She has been stable to be transferred to the ICU. Today, the patient is in the ICU as a select overflow. Patient still complains of chest soreness. Her difficulty in breathing is improving. She complains of cough that is productive in nature. She is bringing up yellow to clear sputum. Denies having any fevers chills or rigors. No chest pain or palpitations. No abdominal pain nausea vomiting or diarrhea. Her last bowel movement was yesterday. She denies having any dysuria or hematuria. Patient's medications have been reviewed labs also reviewed. Active Medications Hydrocodone Bitart/Acetaminophen ([place] 5-325) 1 each PO Q4HR PRN Albuterol/Ipratropium (Duoneb 0.5 Mg-3 Mg/3 Ml Soln) 3 ml INHALATION RT-Q2H PRN PRN Reason: Shortness Of Breath Or Wheezing Albuterol/Ipratropium (Duoneb 0.5 Mg-3 Mg/3 Ml Soln) 3 ml INHALATION RT-QID [facility] Ascorbic Acid (Vitamin C) 500 mg PO BID-W/MEALS [facility] Aspirin (Aspirin) 81 mg PO DAILY [facility] Benzocaine/Menthol (Cepacol Lozenge) 1 each MUCOUS MEM Q2H PRN PRN Reason: Sore Throat Bisacodyl (Dulcolax) 10 mg RECTAL DAILY PRN PRN Reason: Constipation Cholecalciferol (Vitamin D3 (25 Mcg = 1000 Iu)) 1,000 unit PO DAILY [facility] Ferrous Sulfate (Feosol) 325 mg PO BID-W/MEALS [facility] Fondaparinux (Arixtra) 2.5 mg SQ DAILY [facility] Furosemide (Lasix) 40 mg IV Q12HR [facility] Insulin Aspart (Novolog) 0 unit SQ ACHS [facility]; Protocol Levothyroxine Sodium (Synthroid) 50 mcg PO DAILY@0630 [facility] Magnesium Hydroxide (Milk Of Magnesia) 2,400 mg PO BID PRN Metoclopramide HCl (Reglan) 10 mg IVP Q4H PRN Metoprolol Tartrate (Lopressor) 25 mg PO BID [facility] Ondansetron HCl (Zofran) 4 mg IVP Q6HR PRN PRN Reason: Nausea And Vomiting Pantoprazole Sodium (Protonix) 40 mg PO AC-BRKFST [facility] Senna/Docusate Sodium (Senokot-S) 2 each PO HS [facility] Objective - Vital Signs Vital signs: Vital Signs Temp 98.1 F 03/24/19 16:00 Pulse 98 03/24/19 16:00 Resp 19 03/24/19 16:00 BP 95/76 03/24/19 16:00 Pulse Ox 100 03/24/19 16:00 Intake & Output 03/23/19 03/24/19 03/24/19 18:59 06:59 18:59 Intake Total 530 100 300 Output Total 950 2190 0 Balance -420 -2090 300 Weight 121.2 kg Intake: Oral 530 100 300 Output: Chest Tube Drainage 100 Left Pleural 50 Mediastinal 50 Urine 850 2190 0 Other: Voiding Method Bedside Commode Bedside Commode Bedpan # Voids 1 # Bowel Movements 1 ABP, PAP, CO, CI - Last Documented Arterial Blood Pressure 102/67 Pulmonary Artery Pressure 38/16 Cardiac Output 4.7 Cardiac Index 2.1 - Exam GENERAL: Sitting up in recliner, no acute distress, minimal shortness of breath HEENT: Conjunctivae normal. eyes normal. Oral mucosa moist NECK: No JVD. No thyroid enlargement. No LNs. CARDIOVASCULAR: S1, S2 irregular. RESPIRATION: Breath sounds diminished in the bases. No rhonchi, no crackles, expiratory wheezing. ABDOMEN: Soft, nontender . No guarding. No hepatosplenomegaly. no masses palpable. Positive Bowel sounds. LEGS: Generalized edema, positive peripheral pulses, LAUREL hose. PSYCHIATRY: Alert and oriented 3 NERVOUS SYSTEM: moves all 4 extremities, mild diffuse generalized weakness. No focal deficits. Strength and sensation grossly intact. Skin: Generalized mild edema ,no lesions, no rash. No clubbing, no cyanosis. - Labs CBC & Chem 7: 03/24/19 05:28 03/24/19 05:28 Labs: Abnormal Lab Results - Last 24 Hours (Table) 03/23/19 03/24/19 03/24/19 Range/Units 20:57 05:28 05:28 WBC 14.5 H (3.8-10.6) k/uL RBC 2.43 L (3.80-5.40) m/uL Hgb 7.6 L (11.4-16.0) gm/dL Hct 22.9 L (34.0-46.0) % RDW 17.9 H (11.5-15.5) % Plt Count 68 L (150-450) k/uL Sodium 131 L (137-145) mmol/L Chloride 96 L (98-107) mmol/L BUN 50 H (7-17) mg/dL Creatinine 1.49 H (0.52-1.04) mg/dL Glucose 107 H (74-99) mg/dL POC Glucose (mg/dL) 132 H (75-99) mg/dL Calcium 8.3 L (8.4-10.2) mg/dL AST (14-36) U/L ALT (9-52) U/L 03/24/19 03/24/19 03/24/19 Range/Units 05:28 06:39 11:46 WBC (3.8-10.6) k/uL RBC (3.80-5.40) m/uL Hgb (11.4-16.0) gm/dL Hct (34.0-46.0) % RDW (11.5-15.5) % Plt Count (150-450) k/uL Sodium (137-145) mmol/L Chloride (98-107) mmol/L BUN (7-17) mg/dL Creatinine (0.52-1.04) mg/dL Glucose (74-99) mg/dL POC Glucose (mg/dL) 101 H 107 H (75-99) mg/dL Calcium (8.4-10.2) mg/dL AST 221 H (14-36) U/L ALT 392 H (9-52) U/L 03/24/19 Range/Units 17:11 WBC (3.8-10.6) k/uL RBC (3.80-5.40) m/uL Hgb (11.4-16.0) gm/dL Hct (34.0-46.0) % RDW (11.5-15.5) % Plt Count (150-450) k/uL Sodium (137-145) mmol/L Chloride (98-107) mmol/L BUN (7-17) mg/dL Creatinine (0.52-1.04) mg/dL Glucose (74-99) mg/dL POC Glucose (mg/dL) 126 H (75-99) mg/dL Calcium (8.4-10.2) mg/dL AST (14-36) U/L ALT (9-52) U/L Assessment and Plan Assessment: ASSESSMENT Status post aortic and mitral valve repair along with coronary artery bypass grafting Acute postoperative bleeding- requiring emergent reexploration and evacuation of clot and control of bleeding with intra-aortic balloon pump Acute blood loss anemia- due to bleeding requiring multiple blood products inc luding PRBCs, cardio, FFP, platelets Hemorrhagic shock - requiring pressor support Thrombocytopenia Postop atrial fibrillation Secondary pulmonary hypertension Chronic ischemic cardiomyopathy with ejection fraction of 30% Hypertension Hyperlipidemia Hypothyroidism Right ICA stenosis - 50-70% CK D stage III PLAN; patient is encouraged to continue with incentive spirometry. Continue with the current medication regimen of beta blockers, aspirin, statin. Continue anticoagulation. Continue with the rest of her medication regimen. Overall prognosis is guarded. Further recommendations to follow depending on the progress of the patient.
[2019-03-24] MEDS: SENNOSIDES-DOCUSATE SODIUM 1 EACH TAB PO SCH (20:29)
[2019-03-24 20:35] LABS: Glucose,Whole Blood 186 mg/dL (75-99)
[2019-03-25] MEDS: HYDROcodone/APAP 5-325MG 1 EACH TAB PO PRN (01:03)
[2019-03-25 05:13] LABS: Anisocytosis Slight; HGB 7.6 gm/dL (11.4-16.0); MCH 31.1 pg (25.0-35.0); MCHC 33.1 g/dL (31.0-37.0); Mean Platelet Volume 8.7; RBC 2.45 m/uL (3.80-5.40); RDW 18.8 % (11.5-15.5); WBC 13.8 k/uL (3.8-10.6)
[2019-03-25 05:22] LABS: Platelet Count 112 k/uL (150-450)
[2019-03-25 05:23] LABS: Calcium 8.6 mg/dL (8.4-10.2); Potassium 3.7 mmol/L (3.5-5.1); Total Bilirubin 1.1 mg/dL (0.2-1.3); Total Protein 4.9 g/dL (6.3-8.2)
[2019-03-25] MEDS: PANTOPRAZOLE 40 MG TABLET PO SCH (06:43)
[2019-03-25] MEDS: LEVOTHYROXINE 50 MCG TAB PO SCH (06:43)
[2019-03-25] MEDS: FERROUS SULFATE 325 MG TAB PO SCH ×2 (06:43→17:17)
[2019-03-25] MEDS: INSULIN ASPART (NovoLOG) 100 UNIT/ML VIAL SQ SCH ×4 (06:43→21:19)
[2019-03-25] MEDS: ASCORBIC ACID 500 MG TAB PO SCH ×2 (06:43→17:17)
[2019-03-25 06:54] LABS: Glucose,Whole Blood 109 mg/dL (75-99)
[2019-03-25] MEDS ORDERED: Potassium Replacement Protocol 1 EACH MISC MISCELLANE PRN (07:07)
--- NOTE | 2019-03-25 07:08 | XR ---
EXAMINATION TYPE: XR chest 2V DATE OF EXAM: 03/25/2019 HISTORY: post cardiac surgery. REFERENCE: Previous study dated 03/24/2019. FINDINGS: There has been a midline sternotomy and valvular replacement. The heart remains enlarged. T here are small, bilateral effusions. There is bibasilar airspace disease either representing atelecta sis or pneumonia. IMPRESSION: CONTINUING POSTSURGICAL CHANGE.
[2019-03-25] MEDS: IPRATROPIUM-ALBUTEROL 3 ML NEB INHALATION SCH ×4 (07:50→20:19)
[2019-03-25] MEDS ORDERED: POTASSIUM CHLORIDE ER 20 MEQ TAB.ER PO SCH (08:00)
--- NOTE | 2019-03-25 08:40 | P.PN ---
Subjective Progress Note Date: 03/25/19 Principal diagnosis: Severe aortic valve stenosis, moderate to severe mitral valve regurgitation, single-vessel coronary artery disease, and a decreased LV function, chronic systolic heart failure with a preoperative ejection fraction of 30%. History of hypertension, hyperlipidemia, hypothyroid, osteoarthritis, chronic renal failure with baseline creatinine 1.3-1.6, right internal carotid artery stenosis 50-70%, previous tobacco dependance with preoperative FEV1 93% of predicted. POD #6 aortic valve replacement with a #23 mm Avalus bioprosthetic Medtronic aortic valve, mitral valve repair with a #30 mm Carbomedics AnnuloFlex band. Coronary artery bypass grafting 1 vessel with a reverse greater saphenous vein off the aorta to the circumflex coronary artery and a clip ligation of the left atrial appendage with a 35 mm Atriclip. Endoscopic harvesting of the left gre ater saphenous vein. Intraoperative transesophageal echocardiogram. Acute postoperative bleeding, an unexpected outcome Reactive thrombocytopenia, expected POD #6 Emergent re-exploration of the chest, evacuation of clots and control of bleed. Placement of intra-aortic balloon pump. Post operative paroxysmal atrial fibrillation, unexpected. Transaminitis, unexpected. The patient is sitting up to the bedside chair in the intensive care unit. She is in no acute distress. She denies any complaints of pain, although is complaining of episodes of shortness of breath with activity. She remains hemodynamically stable and is on no inotropic or pressor support. Bedside telemetry demonstrates atrial fibrillation heart rate 94. The patient reports that she has been ambulating in her room to the doorway with minimal assistance. Oxygen saturations are 98% on 2 L nasal cannula and she is achieving 1000 mL with much encouragement on her incentive spirometry. Her heart hugger is in place and she is demonstrating appropriate use. Patient continues to need much encouragement with activity. Her liver enzymes remain elevated with her AST 238 and ALT 415 today. She has generalized edema +1 to her bilateral upper and lower extremities. She reports that her bowels moved yesterday. Objective - Vital Signs Vital signs: Vital Signs Temp 98.2 F 03/25/19 04:00 Pulse 97 03/25/19 07:59 Resp 16 03/25/19 04:00 BP 115/65 03/25/19 04:00 Pulse Ox 96 03/25/19 04:00 Intake & Output 03/24/19 03/25/1903/25/19 18:59 06:59 18:59 Intake Total 300 Output Total 0 1490 Balance 300 -1490 Weight 121.2 kg 120.4 kg Intake: Oral 300 Output: Urine 0 1490 Other: Voiding Method Bedside Commode Bedpan # Voids 1 ABP, PAP, CO, CI - Last Documented Arterial Blood Pressure 102/67 Pulmonary Artery Pressure 38/16 Cardiac Output 4.7 Cardiac Index 2.1 - Constitutional General appearance: Present: cooperative, morbidly obese, no acute distress - Respiratory Details: Lung sounds with scattered expiratory wheezes throughout, diminished bilateral bases. Respirations are symmetrical and nonlabored. Oxygen saturation 98% on 2 L nasal cannula. Achieving 1000 mL on her incentive spirometry. - Cardiovascular Details: Irregular rhythm with controlled rate consistent with atrial fibrillation. S1 and S2 present, negative for S3, gallop or murmur. Sternum is stable. +1 edema to her bilateral upper and lower extremities. Heart hugger is in place and she is demonstrating appropriate use. Knee-high LAUREL hose and sequential compression devices in place to bilateral lower extremities. - Gastrointestinal Gastrointestinal Comment(s): Abdomen is soft, nontender and nondistended. Active bowel sounds to all 4 abdominal quadrants. No guarding or rigidity. No organomegaly. Tolerating oral intake. - Genitourinary Genitourinary Comment(s): Voiding clear deidra urine. - Integumentary Integumentary Comment(s): Skin is warm and dry. No clubbing or cyanosis is present. Midline sternal incision is clean, dry and approximated. No drainage or redness is present. Some surrounding ecchymosis. Left lower extremity EVH site is clean, dry and approximated. No drainage or redness is present. - Neurologic Neurologic: Present: CNII-XII intact - Musculoskeletal Musculoskeletal: Present: gait normal, generalized weakness, strength equal bilaterally - Psychiatric Psychiatric: Present: A&O x's 3, appropriate affect, intact judgment & insight - Allied health notes Allied health notes reviewed: nursing - Labs CBC & Chem 7: 03/25/19 04:49 03/25/19 04:49 Labs: Abnormal Lab Results - Last 24 Hours (Table) 03/24/19 03/24/19 03/24/19 Range/Units 05:28 11:46 17:11 WBC (3.8-10.6) k/uL RBC (3.80-5.40) m/uL Hgb (11.4-16.0) gm/dL Hct (34.0-46.0) % RDW (11.5-15.5) % Plt Count (150-450) k/uL Sodium (137-145) mmol/L Chloride (98-107) mmol/L Carbon Dioxide (22-30) mmol/L BUN (7-17) mg/dL Creatinine (0.52-1.04) mg/dL Glucose (74-99) mg/dL POC Glucose (mg/dL) 107 H 126 H (75-99) mg/dL AST 221 H (14-36) U/L ALT 392 H (9-52) U/L Total Protein (6.3-8.2) g/dL Albumin (3.5-5.0) g/dL 03/24/19 03/25/19 03/25/19 Range/Units 20:24 04:49 04:49 WBC 13.8 H (3.8-10.6) k/uL RBC 2.45 L (3.80-5.40) m/uL Hgb 7.6 L (11.4-16.0) gm/dL Hct 23.0 L (34.0-46.0) % RDW 18.8 H (11.5-15.5) % Plt Count 112 L D (150-450) k/uL Sodium 131 L (137-145) mmol/L Chloride 92 L (98-107) mmol/L Carbon Dioxide 31 H (22-30) mmol/L BUN 52 H (7-17) mg/dL Creatinine 1.55 H (0.52-1.04) mg/dL Glucose 110 H (74-99) mg/dL POC Glucose (mg/dL) 186 H (75-99) mg/dL AST 238 H (14-36) U/L ALT 415 H (9-52) U/L Total Protein 4.9 L (6.3-8.2) g/dL Albumin 3.0 L (3.5-5.0) g/dL 03/25/19 Range/Units 06:42 WBC (3.8-10.6) k/uL RBC (3.80-5.40) m/uL Hgb (11.4-16.0) gm/dL Hct (34.0-46.0) % RDW (11.5-15.5) % Plt Count (150-450) k/uL Sodium (137-145) mmol/L Chloride (98-107) mmol/L Carbon Dioxide (22-30) mmol/L BUN (7-17) mg/dL Creatinine (0.52-1.04) mg/dL Glucose (74-99) mg/dL POC Glucose (mg/dL) 109 H (75-99) mg/dL AST (14-36) U/L ALT (9-52) U/L Total Protein (6.3-8.2) g/dL Albumin (3.5-5.0) g/dL - Imaging and Cardiology Chest x-ray: report reviewed, image reviewed Assessment and Plan Assessment: 1. Aortic valve stenosis, with severe aortic valve regurgitation, status post aortic valve replacement 2. Moderate to severe mitral valve regurgitation, status post mitral valve repair 3. Single-vessel coronary artery disease, status post coronary artery bypass gr afting surgery 1 vessel 4. Decreased LV function with preoperative ejection fraction of 30% 5. Hypertension 6. Hyperlipidemia 7. Hypothyroid 8. Non-critical carotid stenosis with a 50-70% right ICA stenosis 9. Acute postoperative bleeding, an unexpected outcome 10. Postoperative Hypotension, resolved 11. Chronic renal failure, baseline creatinine 1.3-1.6 12. Thrombocytopenia, reactive HIT panel negative 13. Postoperative paroxysmal atrial fibrillation, status post clip ligation of the left atrial appendage 14. Transaminitis 15. Osteoarthritis Plan: 1. Continue to maximize medical therapy with aspirin and beta heriberto. We will increase her metoprolol tartrate 50 mg by mouth twice a day. 2. Wean oxygen as tolerated. Encourage use of her incentive spirometry every hour while awake. 3. Continue to hold statin and amiodarone. We will restart her statin once her liver enzymes have normalized. 4. Bronchodilators management per pulmonary medicine. Pulmicort added for expiratory wheezes. 5. Monitor daily labs and chest x-rays. Replace electrolytes per protocol. 6. GI and DVT prophylaxis. 7. Pain control current medication regimen. No Toradol due to her elevated BUN and creatinine. 8. Continue IV Lasix 40 mg BID. 9. Continue Iron, vitamin C. hemoglobin 7.6 this a.m. 10. Transferred 3 S cardiac stepdown unit when a bed available. 11. Insulin management per primary care service. 12. Discharge planning in progress. Anticipate discharge to home with home care. May need rehab if unable to ambulate in the hallway. Increase activity as tolerated, physical therapy, occupational therapy and cardiac rehab following. 13. Continue daily weights. Weight today is 120.4 kg. 14. We will start the patient on Eligard was 2.5 mg by mouth twice a day as the patient remains in atrial fibrillation. 15. More recommendations to follow based on patient's clinical course. Time with Patient: Greater than 30
[2019-03-25] MEDS: BUDESONIDE 0.5 MG/2 ML NEBU INHALATION SCH ×2 (09:02→20:19)
[2019-03-25] MEDS: APIXABAN 2.5 MG TABLET PO SCH ×2 (09:18→20:13)
[2019-03-25] MEDS: FUROSEMIDE 10 MG/ML 4 ML VIAL IV SCH ×3 (09:18→23:40)
[2019-03-25] MEDS: ASPIRIN 81 MG PO SCH (09:19)
[2019-03-25] MEDS: MUPIROCIN 2% OINT 22 GM TUBE NASAL SCH ×2 (09:19→20:13)
[2019-03-25] MEDS: CHOLECALCIFEROL 1,000 UNIT TAB PO SCH (09:19)
[2019-03-25] MEDS: METOPROLOL TARTRATE 50 MG TAB PO SCH ×2 (09:19→20:13)
[2019-03-25] MEDS: ACETAMINOPHEN TAB 500 MG TAB PO PRN ×2 (09:22→17:23)
--- NOTE | 2019-03-25 09:39 | P.PN ---
Subjective Progress Note Date: 03/25/19 this is a 79-year-old femalewith history of aortic valve replacement and mitral valves repair and also single-vessel bypass surgery. Patient seemed to be gradually progressing. She was able to walk to the bathroom. She is sitting in the chair and appears to be in mild distress. She does complain of exertional shortness of breath. Patient had atrial fibrillation and was on amiodarone which was discontinued because of elevated liver enzymes.chest x-ray showed a car or megaly with elevated right hemidiaphragm and right basilar atelectasis. Patient did require some blood transfusion following reexploration for bleeding. Her creatinine is 1.49. Hemoglobin is 7.6. AST 221 on the Altace to 92.pat ient is making slow but gradual progress. 03/25/2019: This patient is status post aortic: Placement and mitral valve repair. He also had a single-vessel bypass surgery. Patient is a is sitting up in the chair. Able to walk 100 feet or so. . Still appears to be tachypneic. Denies any chest pain. Patient remains in atrial fibrillation with the reasonable [place] controlled heart rate. She is on amiodarone. She is being initiated on anticoagulation therapy. A chest x-ray findings are stable. Her BUN/creatinine are slightly going up. Her liver enzymes are still on the higher side. Lungs show diminished air exchange. Heart is irregular. She is on IV Lasix. The dose may be cut back. Further recommendation will depend upon the clinical course Objective - Vital Signs Vital signs: Vital Signs Temp 98.2 F 03/25/19 04:00 Pulse 96 03/25/19 09:09 Resp 16 03/25/19 04:00 BP 115/65 03/25/19 04:00 Pulse Ox 96 03/25/19 04:00 Intake & Output 03/24/19 03/25/19 03/25/19 18:59 06:59 18:59 Intake Total 300 Output Total 0 1490 Balance 300 -1490 Weight 121.2 kg 120.4 kg Intake: Oral 300 Output: Urine 0 1490 Other: Voiding Method Bedside Commode Bedpan # Voids 1 ABP, PAP, CO, CI - Last Documented Arterial Blood Pressure 102/67 Pulmonary Artery Pressure 38/16 Cardiac Output 4.7 Cardiac Index 2.1 - Exam GENERAL EXAM: Patient is alert and oriented and doesn't appear to be in any acute distress HEENT: Normocephalic. Normal reaction of pupils, equal size, normal range of extraocular motion. No erythema or exudates in the throat. NECK: No masses, no nuchal rigidity. CHEST: No chest wall deformity. LUNGS: iminished air exchange HEART: [S1 and S2 normal with no audible mumurs or gallops. irregular rhythm ABDOMEN: No hepatosplenomegaly, normal bowel sounds, no guarding or rigidity. SKIN: No rashes CENTRAL NERVOUS SYSTEM: No focal deficits. EXTREMITIES: [No cyanosis, clubbing or edema.]axilla defaults - Labs CBC & Chem 7: 03/25/19 04:49 03/25/19 04:49 Labs: Abnormal Lab Results - Last 24 Hours (Table) 03/24/19 03/24/19 03/24/19 Range/Units 11:46 17:11 20:24 WBC (3.8-10.6) k/uL RBC (3.80-5.40) m/uL Hgb (11.4-16.0) gm/dL Hct (34.0-46.0) % RDW (11.5-15.5) % Plt Count (150-450) k/uL Sodium (137-145) mmol/L Chloride (98-107) mmol/L Carbon Dioxide (22-30) mmol/L BUN (7-17) mg/dL Creatinine (0.52-1.04) mg/dL Glucose (74-99) mg/dL POC Glucose (mg/dL) 107 H 126 H 186 H (75-99) mg/dL AST (14-36) U/L ALT (9-52) U/L Total Protein (6.3-8.2) g/dL Albumin (3.5-5.0) g/dL 03/25/19 03/25/19 03/25/19 Range/Units 04:49 04:49 06:42 WBC 13.8 H (3.8-10.6) k/uL RBC 2.45 L (3.80-5.40) m/uL Hgb 7.6 L (11.4-16.0) gm/dL Hct 23.0 L (34.0-46.0) % RDW 18.8 H (11.5-15.5) % Plt Count 112 L D (150-450) k/uL Sodium 131 L (137-145) mmol/L Chloride 92 L (98-107) mmol/L Carbon Dioxide 31 H (22-30) mmol/L BUN 52 H (7-17) mg/dL Creatinine 1.55 H (0.52-1.04) mg/dL Glucose 110 H (74-99) mg/dL POC Glucose (mg/dL) 109 H (75-99) mg/dL AST 238 H (14-36) U/L ALT 415 H (9-52) U/L Total Protein 4.9 L (6.3-8.2) g/dL Albumin 3.0 L (3.5-5.0) g/dL Assessment and Plan (1) Status post aortic valve replacement Current Visit: Yes Status: Acute Code(s): Z95.2 - PRESENCE OF PROSTHETIC HEART VALVE SNOMED Code(s): 2154923213234 (2) History of mitral valve repair Current Visit: Yes Status: Acute Code(s): Z98.890 - OTHER SPECIFIED POSTPROCEDURAL STATES SNOMED Code(s): 666964739 (3) Cardiomyopathy Current Visit: Yes Status: Acute Code(s): I42.9 - CARDIOMYOPATHY, UNSPECIFIED SNOMED Code(s): 80638816 (4) Postoperative atrial fibrillation Current Visit: Yes Status: Acute Code(s): I97.89 - OTH POSTPROC COMP AND DISORDERS OF THE CIRC SYS, NEC; I48.91 - UNSPECIFIED ATRIAL FIBRILLATION SNOMED Code(s): 12431196 Plan: Continue to increase activity. Incentive spirometry. May cut back the dose of the Lasix because of increasing BUN/creatinine. Being started on anticoagulation therapy
--- NOTE | 2019-03-25 10:41 | PN ---
PROGRESS NOTE 79-year-old female who is postop day #6 status post aortic valve replacement, mitral valve repair, clipping of the left atrial appendage, intraoperative transesophageal echocardiogram, and single-vessel bypass grafting, for severe aortic stenosis and severe mitral regurgitation and CAD. The patient is doing reasonably well, although she has been slow out of the gait so to speak. She has been very short of breath. That is improved though. She did have some postoperative bleeding in the immediate postoperative phase and need to go back to the operating room for control. She has required 6 units of PRBCs, 5 units of cryoprecipitate and 3 units of fresh frozen plasma and 2 units of platelets since she has been here in the ICU. She is also status post routine postoperative ventilator management. The patient does have a history of pulmonary hypertension, ischemic cardiomyopathy, hypertension, hyperlipidemia, and hypothyroidism. Her saturations have been somewhat poor, but they are improved now. She is on 2 L by nasal cannula. Not receiving any IV fluids. The patient is getting breathing treatments. Her chest x-ray continues to show some mild fluid overload, some small pleural effusions and postoperative changes. She just has not done particularly well. She is not doing well on her incentive spirometry. She denies any significant chest discomfort. She does have occasional cough and suspected phlegm but she has a hard time coughing it up. PHYSICAL EXAMINATION: VITAL SIGNS: Current vital signs include temperature 98.2, heart rate 90, respiratory rate 16, blood pressure 115/65, mean 81 and saturations were 96 to 97% on 2 L. GENERAL: Appears in no acute distress HEENT examination is grossly unremarkable. Nasal O2 in place. NECK: Supple. Full range of motion. No adenopathy, thyromegaly or neck vein distention. CARDIOVASCULAR examination reveals regular rhythm and rate. Heart rate about 90 beats per minute. S1, S2 normal. Heart sounds are distant. LUNGS: A few scattered rhonchi. Some crackles at the bases. No wheezes. ABDOMEN: Soft. Bowel sounds are heard. EXTREMITIES are intact. No cyanosis, clubbing, or edema. SKIN: Without rash. NEUROLOGIC examination is brief but nonfocal. White count 13.8, hemoglobin 10.6, hematocrit 23.0, platelet count 100,000. Sodium 131, potassium 3.7, chloride 92, CO2 31 anion gap is 8. BUN and creatinine were 52 and 1.55. AST 238, ALT 415. TSH is normal. Chest x-rays reviewed with the cardiothoracic nurse practitioner. Medications are reviewed. ASSESSMENT: 1. Postoperative day #6 status post aortic valve placement, mitral valve repair, clipping of left atrial appendage, single-vessel bypass grafting, and intraoperative CHAITANYA. 2. Routine postoperative ventilator management, resolved. 3. History of valvular heart disease in the form of aortic stenosis and mitral regurgitation. 4. Coronary artery disease. 5. Postoperative bleeding, requiring a trip back to the operating room for bleeding control. 6. Status post multiple transfusions including 6 units of PRBCs, 5 units of cryoprecipitate, 3 units of fresh frozen plasma and 2 units of platelets. 7. Secondary pulmonary hypertension. 8. Ischemic cardiomyopathy. 9. Hypertension. 10.Hyperlipidemia. 11.Hypothyroidism. 12.Obesity. PLAN: The patient does not do well with coughing and deep breathing and clearing of secretions and neither does well with her incentive spirometer. Both have caused her respiratory status to only slowly improve. The patient's chest x-ray shows similar findings yesterday. Chest x-ray. Labs are reviewed. Medications are reviewed. The patient is doing better today. She has been weaned down to 2 L. She is not receiving any IV fluids. We will continue to follow. Prognosis is guarded. MMODL / IJN: [id number] /
[2019-03-25 12:07] LABS: Glucose,Whole Blood 126 mg/dL (75-99)
--- NOTE | 2019-03-25 16:05 | P.PN ---
Subjective Progress Note Date: 03/25/19 Principal diagnosis: Severe aortic stenosis and regurgitation- status post aortic wall replacement with a bioprosthetic valve Ms. Yanes is a 79-year-old female with the past medical history of aortic stenosis and regurgitation, hypertension, hypothyroidism, ischemic cardiomyo poncho with EF of 30%, pulmonary hypertension admitted to the hospital for aortic valve replacement, mitral wall repair and CABG. Her postoperative course was complicated requiring re-exploration of the chest and placement of intra-aortic balloon pump. Patient also received multiple blood transfusions. Patient remained intubated until the . On the she has been extubated and went into atrial fibrillation for which she was started on amiodarone drip. Another complication is that she developed small bilateral pleural effusion with bilateral infiltrates versus atelectasis, she was eventually had left chest tube and mediastinal chest tube in place. Her pleural and mediastinal chest tubes were removed yesterday. She has been stable to be transferred to the ICU. On 03/25/2019 -patient is still in the ICU as select speciality overflow. She still has chest soreness. Denies having any chest pain or palpitations. No fever chills or rigors. Difficulty in breathing is the same. Her lower extremity swelling is still the same. Her last bowel movement was day before yesterday. No abdominal pain nausea vomiting or diarrhea. No dysuria or hematuria. Patient's medications have been reviewed labs also reviewed. Active Medications Acetaminophen (Tylenol Tab) 1,000 mg PO Q6HR PRN PRN Reason: Fever and/ or Pain Last Admin: 03/25/19 09:22 Dose: 1,000 mg Documented by: Albuterol/Ipratropium (Duoneb 0.5 Mg-3 Mg/3 Ml Soln) 3 ml INHALATION RT-Q2H PRN PRN Reason: Shortness Of Breath Or Wheezing Last Admin: 03/23/19 05:44 Dose: 3 ml Documented by: Albuterol/Ipratropium (Duoneb 0.5 Mg-3 Mg/3 Ml Soln) 3 ml INHALATION RT-QID [facility] Last Admin: 03/25/19 11:30 Dose: 3 ml Documented by: Apixaban (Eliquis) 2.5 mg PO BID [facility] Last Admin: 03/25/19 09:18 Dose: 2.5 mg Documented by: Ascorbic Acid (Vitamin C) 500 mg PO BID-W/MEALS [facility] Last Admin: 03/25/19 06:43 Dose: 500 mg Documented by: Aspirin (Aspirin) 81 mg PO DAILY [facility] Last Admin: 03/25/19 09:19 Dose: 81 mg Documented by: Benzocaine/Menthol (Cepacol Lozenge) 1 each MUCOUS MEM Q2H PRN PRN Reason: Sore Throat Bisacodyl (Dulcolax) 10 mg RECTAL DAILY PRN PRN Reason: Constipation Budesonide (Pulmicort) 0.5 mg INHALATION RT-BID [facility] Last Admin: 03/25/19 09:02 Dose: 0.5 mg Documented by: Cholecalciferol (Vitamin D3 (25 Mcg = 1000 Iu)) 1,000 unit PO DAILY [facility] Last Admin: 03/25/19 09:19 Dose: 1,000 unit Documented by: Ferrous Sulfate (Feosol) 325 mg PO BID-W/MEALS [facility] Last Admin: 03/25/19 06:43 Dose: 325 mg Documented by: Furosemide (Lasix) 40 mg IV Q8HR [facility] Stop: 03/27/19 16:01 Insulin Aspart (Novolog) 0 unit SQ [facility]; Protocol Last Admin: 03/25/19 13:41 Dose: Not Given Documented by: Levothyroxine Sodium (Synthroid) 50 mcg PO DAILY@0630 [facility] Last Admin: 03/25/19 06:43 Dose: 50 mcg Documented by: Magnesium Hydroxide (Milk Of Magnesia) 2,400 mg PO BID PRN PRN Reason: Constipation Metoclopramide HCl (Reglan) 10 mg IVP Q4H PRN PRN Reason: Nausea And Vomiting Metoprolol Tartrate (Lopressor) 50 mg PO BID [facility] Last Admin: 03/25/19 09:19 Dose: 50 mg Documented by: Miscellaneous Information (Magnesium Per Protocol) 1 each MISCELLANE DAILY PRN; Protocol PRN Reason: Per Protocol Miscellaneous Information (Potassium Per Protocol) 1 each MISCELLANE DAILY PRN; Protocol PRN Reason: Per Protocol Miscellaneous Information (Phosphorus Per Protocol) 1 each MISCELLANE DAILY PRN; Protocol PRN Reason: Per Protocol Miscellaneous Information (Potassium Per Protocol) 1 each MISCELLANE DAILY PRN; Protocol PRN Reason: Per Protocol Mupirocin (Bactroban Oint) 1 applic NASAL BID [facility] Last Admin: 03/25/19 09:19 Dose: 1 applic Documented by: Ondansetron HCl (Zofran) 4 mg IVP Q6HR PRN PRN Reason: Nausea And Vomiting Pantoprazole Sodium (Protonix) 40 mg PO AC-BRKFST [facility] Last Admin: 03/25/19 06:43 Dose: 40 mg Documented by: Potassium Chloride (K-Dur 20) 20 meq PO DAILY [facility] Stop: 03/28/19 09:01 Senna/Docusate Sodium (Senokot-S) 2 each PO HS [facility] Last Admin: 03/24/19 20:29 Dose: Not Given Documented by: Sodium Chloride (Saline Flush) 10 ml IV BID [facility] Last Admin: 03/25/19 09:19 Dose: 10 ml Documented by: Objective - Vital Signs Vital signs: Vital Signs Temp 98 F 03/25/19 12:00 Pulse 84 03/25/19 12:00 Resp 24 03/25/19 12:00 BP 126/65 03/25/19 12:00 Pulse Ox 100 03/25/19 12:00 Intake & Output 03/24/19 03/25/19 03/25/19 18:59 06:59 18:59 Intake Total 300 300 Output Total 0 1490 Balance 300 -1490 300 Weight 121.2 kg 120.4 kg Intake: Oral 300 300 Output: Urine 0 1490 Other: Voiding Method Bedside Commode Bedpan # Voids 1 1 ABP, PAP, CO, CI - Last Documented Arterial Blood Pressure 102/67 Pulmonary Artery Pressure 38/16 Cardiac Output 4.7 Cardiac Index 2.1 - Exam GENERAL: Sitting up in recliner, no acute distress, minimal shortness of breath HEENT: Conjunctivae normal. eyes normal. Oral mucosa moist NECK: No JVD. No thyroid enlargement. No LNs. CARDIOVASCULAR: S1, S2 irregular. RESPIRATION: Breath sounds diminished in the bases. No rhonchi, no crackles, expiratory wheezing. ABDOMEN: Soft, nontender . No guarding. No hepatosplenomegaly. no masses palpable. Positive Bowel sounds. LEGS: positive peripheral pulses, bilateral pitting edema. PSYCHIATRY: Alert and oriented 3 NERVOUS SYSTEM: moves all 4 extremities, mild diffuse generalized weakness. No focal deficits. Strength and sensation grossly intact. Skin: Generalized mild edema ,no lesions, no rash. No clubbing, no cyanosis. - Labs CBC & Chem 7: 03/25/19 04:49 03/25/19 04:49 Labs: Abnormal Lab Results - Last 24 Hours (Table) 03/24/19 03/24/19 03/25/19 Range/Units 17:11 20:24 04:49 WBC 13.8 H (3.8-10.6) k/uL RBC 2.45 L (3.80-5.40) m/uL Hgb 7.6 L (11.4-16.0) gm/dL Hct 23.0 L (34.0-46.0) % RDW 18.8 H (11.5-15.5) % Plt Count 112 L D (150-450) k/uL Sodium (137-145) mmol/L Chloride (98-107) mmol/L Carbon Dioxide (22-30) mmol/L BUN (7-17) mg/dL Creatinine (0.52-1.04) mg/dL Glucose (74-99) mg/dL POC Glucose (mg/dL) 126 H 186 H (75-99) mg/dL AST (14-36) U/L ALT (9-52) U/L Total Protein (6.3-8.2) g/dL Albumin (3.5-5.0) g/dL 03/25/19 03/25/19 03/25/19 Range/Units 04:49 06:42 11:55 WBC (3.8-10.6) k/uL RBC (3.80-5.40) m/uL Hgb (11.4-16.0) gm/dL Hct (34.0-46.0) % RDW (11.5-15.5) % Plt Count (150-450) k/uL Sodium 131 L (137-145) mmol/L Chloride 92 L (98-107) mmol/L Carbon Dioxide 31 H (22-30) mmol/L BUN 52 H (7-17) mg/dL Creatinine 1.55 H (0.52-1.04) mg/dL Glucose 110 H (74-99) mg/dL POC Glucose (mg/dL) 109 H 126 H (75-99) mg/dL AST 238 H (14-36) U/L ALT 415 H (9-52) U/L Total Protein 4.9 L (6.3-8.2) g/dL Albumin 3.0 L (3.5-5.0) g/dL Assessment and Plan Assessment: ASSESSMENT Status post aortic and mitral valve repair along with coronary artery bypass grafting Acute postoperative bleeding- requiring emergent reexploration and evacuation of clot and control of bleeding with intra-aortic balloon pump Acute blood loss anemia- due to bleeding requiring multiple blood products including PRBCs, cardio, FFP, platelets Hemorrhagic shock - requiring pressor support Thrombocytopenia Postop atrial fibrillation Secondary pulmonary hypertension Chronic ischemic cardiomyopathy with ejection fraction of 30% Hypertension Hyperlipidemia Hypothyroidism Right ICA stenosis - 50-70% CK D stage III PLAN: patient is encouraged to continue with incentive spirometry. Continue with the current medication regimen of beta blockers, aspirin, statin. Continue anticoagulation. Continue with the rest of her medication regimen. Overall prognosis is guarded. Further recommendations to follow depending on the progress of the patient.
[2019-03-25 17:07] LABS: Glucose,Whole Blood 125 mg/dL (75-99)
[2019-03-25] MEDS: SENNOSIDES-DOCUSATE SODIUM 1 EACH TAB PO SCH (20:13)
[2019-03-25 21:08] LABS: Glucose,Whole Blood 157 mg/dL (75-99)
[2019-03-26 06:24] LABS: Glucose,Whole Blood 129 mg/dL (75-99)
[2019-03-26 06:33] LABS: Anisocytosis Slight; HGB 7.6 gm/dL (11.4-16.0); MCH 31.3 pg (25.0-35.0); MCHC 33.3 g/dL (31.0-37.0); MCV 94.2 fL (80.0-100.0); Macrocytosis Slight; Mean Platelet Volume 7.5; Platelet Count 147 k/uL (150-450); RBC 2.44 m/uL (3.80-5.40); RDW 17.4 % (11.5-15.5); WBC 13.3 k/uL (3.8-10.6)
[2019-03-26 06:42] LABS: Albumin 3.1 g/dL (3.5-5.0); Calcium 8.6 mg/dL (8.4-10.2); Potassium 3.4 mmol/L (3.5-5.1); Total Bilirubin 1.2 mg/dL (0.2-1.3)
[2019-03-26] MEDS: INSULIN ASPART (NovoLOG) 100 UNIT/ML VIAL SQ SCH ×4 (06:58→22:04)
[2019-03-26] MEDS: ASCORBIC ACID 500 MG TAB PO SCH ×2 (07:01→17:59)
[2019-03-26] MEDS: PANTOPRAZOLE 40 MG TABLET PO SCH (07:01)
[2019-03-26] MEDS: FERROUS SULFATE 325 MG TAB PO SCH ×2 (07:01→17:59)
[2019-03-26] MEDS: LEVOTHYROXINE 50 MCG TAB PO SCH (07:01)
[2019-03-26] MEDS ORDERED: Potassium Replacement Protocol 1 EACH MISC MISCELLANE PRN (07:18)
[2019-03-26] MEDS: POTASSIUM CHLORIDE ER 20 MEQ TAB.ER PO SCH ×2 (08:05→10:19)
[2019-03-26] MEDS: MUPIROCIN 2% OINT 22 GM TUBE NASAL SCH ×2 (08:06→22:04)
[2019-03-26] MEDS: ASPIRIN 81 MG PO SCH (08:06)
[2019-03-26] MEDS: APIXABAN 2.5 MG TABLET PO SCH ×2 (08:06→20:38)
[2019-03-26] MEDS: METOPROLOL TARTRATE 50 MG TAB PO SCH ×2 (08:06→20:39)
[2019-03-26] MEDS: CHOLECALCIFEROL 1,000 UNIT TAB PO SCH (08:06)
[2019-03-26] MEDS: BUDESONIDE 0.5 MG/2 ML NEBU INHALATION SCH ×2 (08:13→20:23)
[2019-03-26] MEDS: IPRATROPIUM-ALBUTEROL 3 ML NEB INHALATION SCH ×4 (08:13→20:23)
--- NOTE | 2019-03-26 08:51 | P.PN ---
Subjective Progress Note Date: 03/26/19 Principal diagnosis: Severe aortic valve stenosis, moderate to severe mitral valve regurgitation, single-vessel coronary artery disease, and a decreased LV function, chronic systolic heart failure with a preoperative ejection fraction of 30%. History of hypertension, hyperlipidemia, hypothyroid, osteoarthritis, chronic renal failure with baseline creatinine 1.3-1.6, right internal carotid artery stenosis 50-70%, previous tobacco dependance with preoperative FEV1 93% of predicted. POD #7 aortic valve replacement with a #23 mm Avalus bioprosthetic Medtronic aortic valve, mitral valve repair with a #30 mm Carbomedics AnnuloFlex band. Coronary artery bypass grafting 1 vessel with a reverse greater saphenous vein off the aorta to the circumflex coronary artery and a clip ligation of the left atrial appendage with a 35 mm Atriclip. Endoscopic harvesting of the left gre ater saphenous vein. Intraoperative transesophageal echocardiogram. Acute postoperative bleeding, an unexpected outcome Reactive thrombocytopenia, expected POD #7 Emergent re-exploration of the chest, evacuation of clots and control of bleed. Placement of intra-aortic balloon pump. Post operative paroxysmal atrial fibrillation, unexpected. Transaminitis, unexpected. The patient is sitting up to the bedside chair on the cardiac step down unit. She is in no acute distress. She denies any complaints of pain and reports that her breathing has somewhat improved today. She remains hemodynamically stable and is on no inotropic or pressor support. Remote telemetry demonstrates atrial fibrillation heart rate 95. The patient reports that she ambulated in the intensive care unit hallway 1 yesterday with minimal assistance. Oxygen saturations are 95% on room air and she is achieving 1000 mL with much encouragement on her incentive spirometry. Her heart hugger is in place and she is demonstrating appropriate use. Patient continues to need much encouragement with activity. Her liver enzymes remain elevated although they are trending down. She remains with +1 generalized edema to her bilateral upper and lower extremities. Eliquis 2.5 mg by mouth twice a day was initiated yesterday for her postoperative paroxysmal atrial fibrillation. Objective - Vital Signs Vital signs: Vital Signs Temp 98.5 F 03/26/19 02:40 Pulse 104 H 03/26/19 08:28 Resp 23 03/26/19 02:40 BP 114/65 03/26/19 02:40 Pulse Ox 96 03/26/19 08:17 Intake & Output 03/25/19 03/26/19 03/26/19 18:59 06:59 18:59 Intake Total 780 Output Total 1200 2049 Balance -420 -2049 Weight 117.7 kg Intake: Oral 780 Output: Urine 1200 2049 Other: Voiding Method Toilet Toilet # Voids 1 1 ABP, PAP, CO, CI - Last Documented Arterial Blood Pressure 102/67 Pulmonary Artery Pressure 38/16 Cardiac Output 4.7 Cardiac Index 2.1 - Constitutional General appearance: Present: cooperative, morbidly obese, no acute distress - Respiratory Details: Lung sounds with few scattered crackles to her bilateral bases. No wheezing or rhonchi present. Respirations are symmetrical and nonlabored. Oxygen saturation is 95% on room air. Achieving 1000 mL on her incentive spirometry. - Cardiovascular Details: Irregular rhythm and controlled rate consistent with atrial fibrillation. S1 and S2 present, negative for S3, gallop or murmur. Remote telemetry showing atrial fibrillation heart rate 95. +1 generalized edema to her bilateral upper and lower extremities. Sternum is stable. Heart hugger is in place and she is demonstrating appropriate use. Knee-high LAUREL hose and sequential compression devices in place to bilateral lower extremities. - Gastrointestinal Gastrointestinal Comment(s): Abdomen is soft, nontender and nondistended. Active bowel sounds to all 4 abdominal quadrants. No guarding or rigidity. No organomegaly. Tolerating oral intake. - Genitourinary Genitourinary Comment(s): Voiding clear yellow urine. - Neurologic Neurologic: Present: CNII-XII intact - Musculoskeletal Musculoskeletal: Present: gait normal, generalized weakness, strength equal bilaterally - Psychiatric Psychiatric: Present: A&O x's 3, appropriate affect, intact judgment & insight - Allied health notes Allied health notes reviewed: nursing - Labs CBC & Chem 7: 03/26/19 06:04 03/26/19 06:04 Labs: Abnormal Lab Results - Last 24 Hours (Table) 03/25/19 03/25/19 03/25/19 Range/Units 11:55 16:55 20:56 WBC (3.8-10.6) k/uL RBC (3.80-5.40) m/uL Hgb (11.4-16.0) gm/dL Hct (34.0-46.0) % RDW (11.5-15.5) % Plt Count (150-450) k/uL Sodium (137-145) mmol/L Potassium (3.5-5.1) mmol/L Chloride (98-107) mmol/L Carbon Dioxide (22-30) mmol/L BUN (7-17) mg/dL Creatinine (0.52-1.04) mg/dL Glucose (74-99) mg/dL POC Glucose (mg/dL) 126 H 125 H 157 H (75-99) mg/dL AST (14-36) U/L ALT (9-52) U/L Total Protein (6.3-8.2) g/dL Albumin (3.5-5.0) g/dL 03/26/19 03/26/19 03/26/19 Range/Units 06:04 06:04 06:23 WBC 13.3 H (3.8-10.6) k/uL RBC 2.44 L (3.80-5.40) m/uL Hgb 7.6 L (11.4-16.0) gm/dL Hct 23.0 L (34.0-46.0) % RDW 17.4 H (11.5-15.5) % Plt Count 147 L (150-450) k/uL Sodium 130 L (137-145) mmol/L Potassium 3.4 L (3.5-5.1) mmol/L Chloride 89 L (98-107) mmol/L Carbon Dioxide 34 H (22-30) mmol/L BUN 55 H (7-17) mg/dL Creatinine 1.43 H (0.52-1.04) mg/dL Glucose 110 H (74-99) mg/dL POC Glucose (mg/dL) 129 H (75-99) mg/dL AST 168 H (14-36) U/L ALT 386 H (9-52) U/L Total Protein 5.0 L (6.3-8.2) g/dL Albumin 3.1 L (3.5-5.0) g/dL Assessment and Plan Assessment: 1. Aortic valve stenosis, with severe aortic valve regurgitation, status post aortic valve replacement 2. Moderate to severe mitral valve regurgitation, status post mitral valve repair 3. Single-vessel coronary artery disease, status post coronary artery bypass grafting surgery 1 vessel 4. Decreased LV function with preoperative ejection fraction of 30% 5. Hypertension 6. Hyperlipidemia 7. Hypothyroid 8. Non-critical carotid stenosis with a 50-70% right ICA stenosis 9. Acute postoperative bleeding, an unexpected outcome 10. Postoperative Hypotension, resolved 11. Chronic renal failure, baseline creatinine 1.3-1.6 12. Thrombocytopenia, reactive HIT panel negative 13. Postoperative paroxysmal atrial fibrillation, status post clip ligation of the left atrial appendage 14. Transaminitis 15. Osteoarthritis 16. Postoperative hyponatremia, unexpected Plan: 1. Continue to maximize medical therapy with aspirin and beta heriberto. We will increase her beta heriberto as tolerated. 2. Wean oxygen as tolerated. Encourage use of her incentive spirometry every hour while awake. Placed on room air this morning with her oxygen saturation is 95%. 3. Continue to hold statin and amiodarone. We will restart her statin once her liver enzymes have normalized. 4. Bronchodilators management per pulmonary medicine. Pulmicort added yesterday for expiratory wheezes. 5. Monitor daily labs and chest x-rays. Replace electrolytes per protocol. 6. GI and DVT prophylaxis. 7. Pain control current medication regimen. No Toradol due to her elevated BUN and creatinine. 8. Continue IV Lasix 40 mg every 8 hours. 9. Continue Iron, vitamin C. hemoglobin remains 7.6 this a.m. 10. Placed on 1500 mL in 24 hour. Fluid restriction for her sodium level of 130. 11. Insulin management per primary care service. 12. Discharge planning in progress. Anticipate discharge to home with home care. May need rehab if unable to ambulate in the hallway. Increase activity as tolerated, physical therapy, occupational therapy and cardiac rehab following. 13. Continue daily weights. Weight today is 118 kg. 14. Continue on Eliquis 2.5 mg by mouth twice a day. 15. Patient is to shower daily. 16. More recommendations to follow based on patient's clinical course. Time with Patient: Greater than 30
[2019-03-26] MEDS ORDERED: POTASSIUM CHLORIDE ER 20 MEQ TAB.ER PO SCH (09:00)
[2019-03-26 12:18] LABS: Glucose,Whole Blood 128 mg/dL (75-99)
[2019-03-26] MEDS: FUROSEMIDE 10 MG/ML 4 ML VIAL IV SCH (12:26)
[2019-03-26 12:42] LABS: Magnesium 2.1 mg/dL (1.6-2.3); Potassium 3.9 mmol/L (3.5-5.1)
--- NOTE | 2019-03-26 12:55 | P.PN ---
Subjective Progress Note Date: 03/26/19 On 03/26/2019 and seeing this patient for a follow-up. This patient had severe aortic stenosis and moderate to severe mitral regurgitation and single-vessel coronary artery disease with a depressed LV function and order of 30%. She had a preop ejection fraction of 30%. She has hypertension and hyperlipidemia and hypothyroidism and chronic renal failure with a baseline creatinine ranging between 1.3 and 1.6 along with right internal carotid artery stenosis in the order of 50-70% and she has an FEV1 of 93% of predicted. The patient is postop aortic valve replacement and mitral valve repair. The patient underwent aortic valve replacement with a #23 mm Avalus bioprosthetic Medtronic aortic valve, mitral valve repair with a #30 mm Carbomedics AnnuloFlex band. Coronary artery bypass grafting 1 vessel with a reverse greater saphenous vein off the aorta to the circumflex coronary artery and a clip ligation of the left atrial appendage with a 35 mm Atriclip. Endoscopic harvesting of the left greater saphenous vein. Intraoperative transesophageal echocardiogram. The patient came in with worsening shortness of breath. The patient was in CHF. The patient was diuresed with IV Lasix pH improved however she is not back to her baseline she continues to BE short of breath. On today's chest x-ray there is a right-sided pleural effusion noted. She had also improvement in lower extremity edema. She was found to be in atrial fibrillation. She was started on anticoagulation with Eliquis and the rate is controlled for now. She is receiving Lasix 40 mg IV push every 8 hours. She is on metoprolol for rate control 50 mg by mouth twice a day. Eliquis 2.5 Mg Twice a Day in Addition to Aspirin. On Today's Evaluation, Her Creatinine Is at 1.4 Which Is Stable Compared to Yesterday. She Has Become Alkalotic with a Serum Bicarb of 34. Sodium Level Is at 140. The Hemoglobin Is at 7.6. Objective - Vital Signs Vital signs: Vital Signs Temp 98 F 03/26/19 08:10 Pulse 106 H 03/26/19 12:11 Resp 19 03/26/19 08:10 BP 83/53 03/26/19 11:15 Pulse Ox 94 L 03/26/19 11:15 Intake & Output 07/21/19 07/22/19 07/22/19 18:59 06:59 18:59 Intake Total 780 180 Output Total 1200 0 Balance -420 -2049 180 Weight 117.7 kg Intake: Oral 780 180 Output: Urine 1200 2049 Other: Voiding Method Toilet Toilet # Voids 1 1 ABP, PAP, CO, CI - Last Documented Arterial Blood Pressure 102/67 Pulmonary Artery Pressure 38/16 Cardiac Output 4.7 Cardiac Index 2.1 - Exam - Constitutional General appearance: Present: cooperative, morbidly obese, no acute distress - Respiratory Details: Lung sounds with few scattered crackles to her bilateral bases. No wheezing or rhonchi present. Respirations are symmetrical and nonlabored. Oxygen saturation is 95% on room air. Achieving 1000 mL on her incentive spirometry. There is diminished breath on the right lung base along with dullness to percussion consistent with pleural effusion. - Cardiovascular Details: Irregular rhythm and controlled rate consistent with atrial fibrillation. S1 and S2 present, negative for S3, gallop or murmur. Remote telemetry showing atrial fibrillation heart rate 95. +1 generalized edema to her bilateral upper and lower extremities. Sternum is stable. Heart hugger is in place and she is demonstrating appropriate use. Knee-high LAUREL hose and sequential compression devices in place to bilateral lower extremities. - Gastrointestinal Gastrointestinal Comment(s): Abdomen is soft, nontender and nondistended. Active bowel sounds to all 4 abdominal quadrants. No guarding or rigidity. No organomegaly. Tolerating oral intake. - Genitourinary Genitourinary Comment(s): Voiding clear yellow urine. - Neurologic Neurologic: Present: CNII-XII intact - Musculoskeletal Musculoskeletal: Present: gait normal, generalized weakness, strength equal bilaterally - Psychiatric Psychiatric: Present: A&O x's 3, appropriate affect, intact judgment & insight - Labs CBC & Chem 7: 03/26/19 06:04 03/26/19 12:10 Labs: Abnormal Lab Results - Last 24 Hours (Table) 03/25/19 03/25/19 03/26/19 Range/Units 16:55 20:56 06:04 WBC (3.8-10.6) k/uL RBC (3.80-5.40) m/uL Hgb (11.4-16.0) gm/dL Hct (34.0-46.0) % RDW (11.5-15.5) % Plt Count (150-450) k/uL Sodium 130 L (137-145) mmol/L Potassium 3.4 L (3.5-5.1) mmol/L Chloride 89 L (98-107) mmol/L Carbon Dioxide 34 H (22-30) mmol/L BUN 55 H (7-17) mg/dL Creatinine 1.43 H (0.52-1.04) mg/dL Glucose 110 H (74-99) mg/dL POC Glucose (mg/dL) 125 H 157 H (75-99) mg/dL AST 168 H (14-36) U/L ALT 386 H (9-52) U/L Total Protein 5.0 L (6.3-8.2) g/dL Albumin 3.1 L (3.5-5.0) g/dL 03/26/19 03/26/19 03/26/19 Range/Units 06:04 06:23 12:00 WBC 13.3 H (3.8-10.6) k/uL RBC 2.44 L (3.80-5.40) m/uL Hgb 7.6 L (11.4-16.0) gm/dL Hct 23.0 L (34.0-46.0) % RDW 17.4 H (11.5-15.5) % Plt Count 147 L (150-450) k/uL Sodium (137-145) mmol/L Potassium (3.5-5.1) mmol/L Chloride (98-107) mmol/L Carbon Dioxide (22-30) mmol/L BUN (7-17) mg/dL Creatinine (0.52-1.04) mg/dL Glucose (74-99) mg/dL POC Glucose (mg/dL) 129 H 128 H (75-99) mg/dL AST (14-36) U/L ALT (9-52) U/L Total Protein (6.3-8.2) g/dL Albumin (3.5-5.0) g/dL Assessment and Plan Plan: 1. Aortic valve stenosis, with severe aortic valve regurgitation, status post aortic valve replacement and Moderate to severe mitral valve regurgitation, status post mitral valve repair 2 Single-vessel coronary artery disease, status post coronary artery bypass grafting surgery 1 vessel 3 Decreased LV function with preoperative ejection fraction of 30%, improved following surgery 4 shortness of breath with development of a right-sided pleural effusion 5. Hypertension 6. Hyperlipidemia 7. Hypothyroid 8. Non-critical carotid stenosis with a 50-70% right ICA stenosis 9. New-onset atrial fibrillation rate controlled and currently the patient on Eliquis 10. Postoperative Hypotension, resolved 11. Chronic renal failure, baseline creatinine 1.3-1.6 12. Thrombocytopenia, reactive HIT panel negative Plan The patient is 6 based in shortness of breath. We'll proceed with a CAT scan of the chest without contrast. If sizable effusion, we'll proceed with a thoracentesis and the fluid was sent for analysis. Continue the diuretics for another 24 hours. We'll continue to follow.
[2019-03-26] MEDS: ACETAMINOPHEN TAB 500 MG TAB PO PRN (14:12)
--- NOTE | 2019-03-26 14:16 | P.CONS ---
History of Present Illness - Chief Complaint Cardiac debility - History of Present Illness I had the opportunity to see patient for inpatient rehab consultation with regard to cardiac debility. She was admitted to [facility] March 19 with known cardiac disease and severe aortic stenosis. Admitted for and underwent aVR and CABG, Dr. Mars. Seen in ICU by Dr. Bruce. PT reports moderate assistance for transfer. OT prescribed. Chest x-rays followed. Previous functional history as elicited from patient: 79-year-old right-handed white female who is lives in one floor home with and daughter. Both are retired. Patient was independent with cooking, laundry, driving, sitdown or standup shower and gait without device. Regular doctors are Drs. Vale and Shona. History smoking in the remote past and a rare drink. Family history both parents with cardiac disease. Review of Systems Review of systems: ENT: Denies sneezes or discharge. Eyes: Denies discharge or photophobia. Cardiac: Mild sternal discomfort. Pulmonary: [id number] shortness of breath. Breast: Denies discharge or lumps. Gastrointestinal: Denies nausea, emesis, constipation, diarrhea. Genitourinary: Denies discharge or frequency. Musculoskeletal: Denies muscle or bone aches. Neurologic: Generalized weakness. Endocrine: Denies shakes or sweats. Oncology: Denies cancers. Dermatologic: Denies rash, itching, pruritus. ALLERGY/immunology: Denies sneezes, rashes. Past Medical History Past Medical History: Coronary Artery Disease (CAD), Eye Disorder, GERD/Reflux, Hyperlipidemia, Hypertension, Osteoarthritis (OA), Thyroid Disorder Additional Past Medical History / Comment(s): Increased SOB w/ activity,Aortic valve stenosis/regurgitation,mitral valve regurgitation,bruised left great toe,Hx GLAUCOMA History of Any Multi-Drug Resistant Organisms: None Reported Past Surgical History: Heart Catheterization, Joint Replacement, Orthopedic Surgery Additional Past Surgical History / Comment(s): BILATERAL CATARACT EYE SURGERY WITH IMPLANTS , LEFT SHOULDER SURGERY, RIGHT TOTAL KNEE, FATTY CYST REMOVED FROM BACK, RIGHT ANKLE SURGERY, HARDWARE REMOVED RIGHT ANKLE ,laser olga lidia eyes tx glaucoma,CHAITANYA Past Anesthesia/Blood Transfusion Reactions: No Reported Reaction Additional Past Anesthesia/Blood Transfusion Reaction / Comm: no hx blood transfusion Smoking Status: Former smoker - Past Family History Mother Family Medical History: No Reported History Medications and Allergies Home Medications Medication Instructions Recorded Confirmed Type Aspirin [Adult Low Dose Aspirin EC] 81 mg PO DAILY 01/28/17 03/19/19 History Levothyroxine Sodium [Synthroid] 50 mcg PO QAM 01/28/17 03/19/19 History Metoprolol Succinate [Toprol XL] 25 mg PO HS 01/28/17 03/19/19 History Multivit-Min/Iron/Folic/Lutein 1 tab PO DAILY 01/28/17 03/19/19 History [Centrum Silver Women Tablet] Simvastatin [Zocor] 20 mg PO HS 01/28/17 03/19/19 History amLODIPine BESYLATE/BENAZEPRIL 1 cap PO DAILY 01/28/17 03/19/19 History [Lotrel 5-40 mg Capsule] Acetaminophen Tab [Tylenol Tab] 650 mg PO Q4H PRN 02/01/19 03/19/19 History Penicillin V Potassium [Pen Vee K] 500 mg PO QID 03/14/19 03/19/19 History Cholecalciferol [Vitamin D3 (25 1,000 unit PO DAILY 03/19/19 03/19/19 History Mcg = 1000 Iu)] Allergies Allergy/AdvReac Type Severity Reaction Status Date / Time oats AdvReac abdominal Verified 03/19/19 07:57 bloating/gas discomfort Physical Exam Vitals: Vital Signs Temp Pulse Pulse Pulse Pulse Resp BP 03/26/19 12:11 106 H 03/26/19 12:02 98 03/26/19 12:00 97.9 F 100 20 03/26/19 11:15 77 63 03/26/19 08:28 104 H 03/26/19 08:17 100 03/26/19 08:10 98 F 110 H 19 03/26/19 02:40 98.5 F 100 23 03/25/19 23:30 98.4 F 89 23 100/70 03/25/19 20:36 102 H 03/25/19 20:35 03/25/19 20:20 103 H 03/25/19 20:00 98.4 F 102 H 25 H 103/70 03/25/19 16:18 100 03/25/19 16:09 105 H 03/25/19 16:00 97.7 F 106 H 26 H 92/67 BP BP BP Pulse Ox Pulse Ox Pulse Ox 03/26/19 12:11 03/26/19 12:02 03/26/19 12:00 96/64 92 L 03/26/19 11:15 89/52 83/53 94 L 94 L 03/26/19 08:28 03/26/19 08:17 96 03/26/19 08:10 112/77 94 L 03/26/19 02:40 114/65 96 03/25/19 23:30 98 03/25/19 20:36 03/25/19 20:35 99 03/25/19 20:20 03/25/19 20:00 99 03/25/19 16:18 03/25/19 16:09 03/25/19 16:00 97 Intake and Output 03/25/19 03/26/19 03/26/19 22:59 06:59 14:59 Intake Total 480 180 Output Total 1150 1750 Balance -670 -1750 180 Intake: Oral 480 180 Output: Urine 1150 1750 Other: Voiding Method Toilet Toilet # Voids 1 Weight 117.7 kg Skin: Good color, texture, turgor. General: Obese build and comfortable appearance. Head: Normocephalic, atraumatic. Eyes: Symmetric. Pupils equal round. Ears: Symmetric. Hearing within normal limits. Mouth: Clear. Neck: Supple. Carotid without bruit. Cardiac: Regular rate and rhythm. Sternum clean and dressed. Harness. Lungs: Clear anteriorly and posteriorly. Abdomen: Soft active nontender. Extremities: Normal tone. Mild edema forelegs. Neurological: Mental status: Alert, cooperative, pleasant. Cranial nerves: Symmetric facial tone and trapezius. Motor: And elevate the limbs but legs are at best antigravity. Sensation: Intact throughout. DTRs: Symmetric and equal throughout. Mobility: Sits and stands with physical assistance. Results CBC & Chem 7: 03/26/19 06:04 03/26/19 12:10 Labs: Abnormal Lab Results - Last 24 Hours (Table) 03/25/19 03/25/19 03/26/19 Range/Units 16:55 20:56 06:04 WBC (3.8-10.6) k/uL RBC (3.80-5.40) m/uL Hgb (11.4-16.0) gm/dL Hct (34.0-46.0) % RDW (11.5-15.5) % Plt Count (150-450) k/uL Sodium 130 L (137-145) mmol/L Potassium 3.4 L (3.5-5.1) mmol/L Chloride 89 L (98-107) mmol/L Carbon Dioxide 34 H (22-30) mmol/L BUN 55 H (7-17) mg/dL Creatinine 1.43 H (0.52-1.04) mg/dL Glucose 110 H (74-99) mg/dL POC Glucose (mg/dL) 125 H 157 H (75-99) mg/dL AST 168 H (14-36) U/L ALT 386 H (9-52) U/L Total Protein 5.0 L (6.3-8.2) g/dL Albumin 3.1 L (3.5-5.0) g/dL 03/26/19 03/26/19 03/26/19 Range/Units 06:04 06:23 12:00 WBC 13.3 H (3.8-10.6) k/uL RBC 2.44 L (3.80-5.40) m/uL Hgb 7.6 L (11.4-16.0) gm/dL Hct 23.0 L (34.0-46.0) % RDW 17.4 H (11.5-15.5) % Plt Count 147 L (150-450) k/uL Sodium (137-145) mmol/L Potassium (3.5-5.1) mmol/L Chloride (98-107) mmol/L Carbon Dioxide (22-30) mmol/L BUN (7-17) mg/dL Creatinine (0.52-1.04) mg/dL Glucose (74-99) mg/dL POC Glucose (mg/dL) 129 H 128 H (75-99) mg/dL AST (14-36) U/L ALT (9-52) U/L Total Protein (6.3-8.2) g/dL Albumin (3.5-5.0) g/dL Assessment and Plan (1) Aortic stenosis Current Visit: Yes Status: Acute Code(s): I35.0 - NONRHEUMATIC AORTIC (VALVE) STENOSIS SNOMED Code(s): 81847565 Plan: Impression: 1. Cardiac debility. 2. Coronary artery disease with recent CABG. 3. Severe aortic stenosis status post AVR. 4 history of MVR. 5. Hypertension. 6. Osteoarthritis. Constant plan: At this time PT ongoing and OT prescribed. Follow therapies with yourself. Discussed possible inpatient rehab with patient and she seems agreeable if necessary. Currently would anticipate the need for rehab.
[2019-03-26] MEDS ORDERED: DEXTROSE 5% IN WATER 100 ML with AMIODARONE 150 MG IV ONE (15:00)
[2019-03-26] MEDS ORDERED: AMIODARONE 360 MG in DEXTROSE 5% IN WATER 200 ML IV ONE ×2 (15:10)
[2019-03-26] MEDS ORDERED: FUROSEMIDE 40 MG TAB PO SCH (16:00)
--- NOTE | 2019-03-26 16:13 | P.PN ---
Subjective Progress Note Date: 03/26/19 This is a 79-year-old femalewith history of aortic valve replacement and mitral valves repair and also single-vessel bypass surgery. She was seen and examined this morning, up ambulating with cardiac rehab and overall doing quite well. Blood pressure 96/60 with a heart rate in the 90s, afebrile. 92% on room air. White blood cell count 13.3, hemoglobin 7.6, platelet count 147. Sodium 1:30, potassium 3.4, BUN 55 and creatinine 1.4. AST 168, ALT 386 Objective - Vital Signs Vital signs: Vital Signs Temp 97.9 F 03/26/19 12:00 Pulse 106 H 03/26/19 12:11 Resp 20 03/26/19 12:00 BP 96/64 03/26/19 12:00 Pulse Ox 92 L 03/26/19 12:00 Intake & Output 03/25/19 03/26/19 03/26/19 18:59 06:59 18:59 Intake Total 780 180 Output Total 1200 0 Balance -420 -2049 180 Weight 117.7 kg Intake: Oral 780 180 Output: Urine 1200 2049 Other: Voiding Method Toilet Toilet # Voids 1 1 ABP, PAP, CO, CI - Last Documented Arterial Blood Pressure 102/67 Pulmonary Artery Pressure 38/16 Cardiac Output 4.7 Cardiac Index 2.1 - Exam GENERAL EXAM: Patient is alert and oriented and doesn't appear to be in any acute distress HEENT: Normocephalic. Normal reaction of pupils, equal size, normal range of extraocular motion. No erythema or exudates in the throat. NECK: No masses, no nuchal rigidity. CHEST: No chest wall deformity. LUNGS: diminished air exchange, bilaterally HEART: S1 and S2 normal with no audible mumurs or gallops. irregular rhythm ABDOMEN: No hepatosplenomegaly, normal bowel sounds, no guarding or rigidity. SKIN: No rashes CENTRAL NERVOUS SYSTEM: No focal deficits. EXTREMITIES: [No cyanosis, clubbing or edema.]axilla defaults - Labs CBC & Chem 7: 03/26/19 06:04 03/26/19 12:10 Labs: Abnormal Lab Results - Last 24 Hours (Table) 03/25/19 03/25/19 03/26/19 Range/Units 16:55 20:56 06:04 WBC (3.8-10.6) k/uL RBC (3.80-5.40) m/uL Hgb (11.4-16.0) gm/dL Hct (34.0-46.0) % RDW (11.5-15.5) % Plt Count (150-450) k/uL Sodium 130 L (137-145) mmol/L Potassium 3.4 L (3.5-5.1) mmol/L Chloride 89 L (98-107) mmol/L Carbon Dioxide 34 H (22-30) mmol/L BUN 55 H (7-17) mg/dL Creatinine 1.43 H (0.52-1.04) mg/dL Glucose 110 H (74-99) mg/dL POC Glucose (mg/dL) 125 H 157 H (75-99) mg/dL AST 168 H (14-36) U/L ALT 386 H (9-52) U/L Total Protein 5.0 L (6.3-8.2) g/dL Albumin 3.1 L (3.5-5.0) g/dL 03/26/19 03/26/19 03/26/19 Range/Units 06:04 06:23 12:00 WBC 13.3 H (3.8-10.6) k/uL RBC 2.44 L (3.80-5.40) m/uL Hgb 7.6 L (11.4-16.0) gm/dL Hct 23.0 L (34.0-46.0) % RDW 17.4 H (11.5-15.5) % Plt Count 147 L (150-450) k/uL Sodium (137-145) mmol/L Potassium (3.5-5.1) mmol/L Chloride (98-107) mmol/L Carbon Dioxide (22-30) mmol/L BUN (7-17) mg/dL Creatinine (0.52-1.04) mg/dL Glucose (74-99) mg/dL POC Glucose (mg/dL) 129 H 128 H (75-99) mg/dL AST (14-36) U/L ALT (9-52) U/L Total Protein (6.3-8.2) g/dL Albumin (3.5-5.0) g/dL Assessment and Plan Plan: Assessment and Plan 1. Aortic valve stenosis, with severe aortic valve regurgitation, status post aortic valve replacement and Moderate to severe mitral valve regurgitation, status post mitral valve repair 2 Single-vessel coronary artery disease, status post coronary artery bypass grafting surgery 1 vessel 3 Decreased LV function with preoperative ejection fraction of 30%, improved following surgery 4 shortness of breath with development of a right-sided pleural effusion 5. Hypertension 6. Hyperlipidemia 7. Hypothyroid 8. Non-critical carotid stenosis with a 50-70% right ICA stenosis 9. New-onset atrial fibrillation rate controlled and currently the patient on Eliquis 10. Postoperative Hypotension, resolved 11. Chronic renal failure, baseline creatinine 1.3-1.6 12. Thrombocytopenia, reactive HIT panel negative Plan From cardiology's perspective, we'll recommend to continue patient on her cur rent medication. She will be discharged home soon and follow-up with Dr. MIGUEL A Lima in the office post discharge. DNP note has been reviewed, I agree with a documented findings and plan of care. Patient was seen and examined.
--- NOTE | 2019-03-26 16:41 | P.PN ---
Subjective Progress Note Date: 03/26/19 This is a 79-year-old female status post CABG X1, aortic valve replacement with bioprosthetic valve, mitral valve repair in a patient with severe aortic valve stenosis, moderate to severe mitral valve regurgitation, CAD, ischemic cardiomyopathy-preop EF 30%, pulmonary hypertension, hypertension, hypothyro idism and multiple other medical issues. Shortly after returning to ICU postop, she developed increased chest tube ouput of 1.3 L over 1-1/2 hours, returned to the OR and required emergent reexploration of the chest with evacuation of clots, control bleeding, placement of IABP. Mediastinal and left pleural chest tube drainage improved. This morning IABP weaned to 1:3 with plans for discontinuing this morning. Continuies on DIprovan, Levophed, Primacor and insulin drips. Cardiac output 7.4, cardiac index 3.4. Maintained on mechanical ventilation with FiO2 40%/+5 of PEEP. Chest x-ray reporting bilateral consolidation and pleural effusion. Telemetry accelerated junctional. 03/21/2019 Extubated yesterday evening.Maintaining O2 sats in the high 90s on 4 L nasal cannula. Incentive spirometer 800 to 1000. Maintained on insulin and Levophed drips. Recent cardiac output/cardiac index 6.1/2.8 .Developed atrial fibrillation last night, received digoxin. Remains in atrial fibrillation, receiving amiodarone bolus with drip pending. Magnesium 2.2, potassium 4.7. Hemoglobin remains stable at 8.5, platelets 62. creatinine 1.26 .Pain controlled. 03/22/2019 maintained on insulin, amiodarone, Levophed drips. Telemetry atrial fibrillation. Amiodarone discontinued secondary to elevated transminases; continues on metoprolol. Arixtra initiated. IS up to 1000. Maintaining O2 sats in the high 90s on 4 L nasal cannula. Chest x-ray reporting mild central vascular congestion, small bilateral pleural effusions and bibasilar acute infiltrates versus atelectasis-no significant change. Maintained on Lasix IV push with 24-hour I&O reflecting a positive fluid balance. 24-hour I&O reflects mediastinal chest tube for 417mls and left pleural chest tube 190mls in the next 24 hours.Hemoglobin 7.8, platelets 57. CO/CI 4.7/2.1. Creatinine 1.37. T-max 100.8, WBC 16.7. Blood sugars controlled. 03/23/2019 All drips have been weaned off. Cardiology discussing removing both pleural and mediastinal chest tubes today .Telemetry controlled atrial fibrillation on beta heriberto. Mild shortness of breath, maintaining O2 sats in the mid 90s on 3 L nasal cannula. Chest x-ray reporting bilateral atelectasis, stable small effusion, fluid overload. IS up to 750. Diuresing well on Lasix IV push with 24-hour I&O reflecting a negative fluid balance. 03/26/19 Sitting up in chair, continues to improve. Diuresing well with edema improving. Bicarb 34, sodium level 130, hemoglobin 7.[address] pending.Incentive spirometer up to almost 1000. Maintaining O2 sats in the mid 90s on room air. LFTs trending down. Controlled proximal atrial fibrillation, on Eliquis. Has not yet walked today, but states did ambulate yesterday in the hallway. Potassium of 3.4 being supplemented. Objective - Vital Signs Vital signs: Vital Signs Temp 98 F 03/26/19 08:10 Pulse 104 H 03/26/19 08:28 Resp 19 03/26/19 08:10 BP 112/77 03/26/19 08:10 Pulse Ox 96 03/26/19 08:17 Intake & Output 03/25/19 03/26/19 03/26/19 18:59 06:59 18:59 Intake Total 780 180 Output Total 1200 2049 Balance -420 -2049 180 Weight 117.7 kg Intake: Oral 780 180 Output: Urine 1200 2049 Other: Voiding Method Toilet Toilet # Voids 1 1 ABP, PAP, CO, CI - Last Documented Arterial Blood Pressure 102/67 Pulmonary Artery Pressure 38/16 Cardiac Output 4.7 Cardiac Index 2.1 - Exam PHYSICAL EXAM: VITAL SIGNS: As above GENERAL: Sitting up in recliner, no acute distress, minimal shortness of breath HEENT: Conjunctivae normal. eyes normal. Oral mucosa moist NECK: No JVD. No thyroid enlargement. No LNs. CARDIOVASCULAR: S1, S2 irregular. No murmur, rubs or gallops. RESPIRATION: Breath sounds diminished in the bases. No rhonchi, no crackles, expiratory wheezing. ABDOMEN: Soft, nontender . No guarding. No hepatosplenomegaly. no masses palpable. Positive Bowel sounds. LEGS: Generalized edema, positive peripheral pulses, LAUREL hose. PSYCHIATRY: Alert and oriented 3 NERVOUS SYSTEM: Cranial nerves II through XII grossly intact, moves all 4 extremities, mild diffuse generalized weakness. No focal deficits. Strength and sensation grossly intact. Skin: Generalized mild edema ,no lesions, no rash. No clubbing, no cyanosis. - Labs CBC & Chem 7: 03/26/19 06:04 03/26/19 12:10 Labs: Abnormal Lab Results - Last 24 Hours (Table) 03/25/19 03/25/19 03/25/19 Range/Units 11:55 16:55 20:56 WBC (3.8-10.6) k/uL RBC (3.80-5.40) m/uL Hgb (11.4-16.0) gm/dL Hct (34.0-46.0) % RDW (11.5-15.5) % Plt Count (150-450) k/uL Sodium (137-145) mmol/L Potassium (3.5-5.1) mmol/L Chloride (98-107) mmol/L Carbon Dioxide (22-30) mmol/L BUN (7-17) mg/dL Creatinine (0.52-1.04) mg/dL Glucose (74-99) mg/dL POC Glucose (mg/dL) 126 H 125 H 157 H (75-99) mg/dL AST (14-36) U/L ALT (9-52) U/L Total Protein (6.3-8.2) g/dL Albumin (3.5-5.0) g/dL 03/26/19 03/26/19 03/26/19 Range/Units 06:04 06:04 06:23 WBC 13.3 H (3.8-10.6) k/uL RBC 2.44 L (3.80-5.40) m/uL Hgb 7.6 L (11.4-16.0) gm/dL Hct 23.0 L (34.0-46.0) % RDW 17.4 H (11.5-15.5) % Plt Count 147 L (150-450) k/uL Sodium 130 L (137-145) mmol/L Potassium 3.4 L (3.5-5.1) mmol/L Chloride 89 L (98-107) mmol/L Carbon Dioxide 34 H (22-30) mmol/L BUN 55 H (7-17) mg/dL Creatinine 1.43 H (0.52-1.04) mg/dL Glucose 110 H (74-99) mg/dL POC Glucose (mg/dL) 129 H (75-99) mg/dL AST 168 H (14-36) U/L ALT 386 H (9-52) U/L Total Protein 5.0 L (6.3-8.2) g/dL Albumin 3.1 L (3.5-5.0) g/dL Assessment and Plan Assessment: -Status post CABG 1 with Aortic and Mitral valve repair with left atrial appendage exclusion, secondary to severe aortic valve stenosis and moderate to severe mitral valve regurgitation. Bioprosthetic aortic valve. -Acute postoperative bleeding, unexpected outcome, status post emergent re exploration, evacuation of clot and control of bleeding, placement of IABP. -Acute blood loss anemia secondary to the above, status post transfusions of multiple products; RBCs, cryoprecipitate, FFP, platelets -Postoperative hypotension, secondary to hemorrhagic shock, unexpected outcome, status post pressor dependent -Thrombocytopenia -Postoperative atrial fibrillation, controlled -Secondary pulmonary hypertension -Chronic systolic CHF, Ischemic cardiomyopathy, preop EF 30% -Hyperlipidemia -Hypertension, history of -Hypothyroidism -Right ICA stenosis 50-70% -History of nicotine dependence -CKD, stage III -Hyponatremia Plan: Continue current medication regime , beta heriberto, statin, aspirin monitoring and symptomatic treatment.pain management. Aggressive pulmonary toileting with incentive spirometer reinforced. Maintain nebulized bronchodilators, beta heriberto, aspirin, statin, and anticoagulation.blood sugars controlled, close monitoring of Accu-Cheks .Dr. Nichole consulted for inpatient rehab .Further recommendations to follow. The impression and plan of care has been dictated as directed. : I performed a history and examination of this patient, discussed the same with the dictator. I agree with the dictator's note ,documented as a scribe. Any additional findings or plans will be noted. Time taken: 35 minutes.
--- NOTE | 2019-03-26 16:57 | CT ---
EXAMINATION TYPE: CT chest wo con DATE OF EXAM: 03/26/2019 COMPARISON: Radiograph 03/26/2019 HISTORY: 79-year-old female Pleural effusion TECHNIQUE: Contiguous axial scanning of the chest without IV contrast. Coronal and sagittal reconstru ctions performed. CT DLP: 426.1 mGycm Automated exposure control for dose reduction was used. FINDINGS: Median sternotomy is demonstrated. Focal areas of fluid within the anterior mediastinum deep to the s ternotomy likely on a postsurgical basis. Heart upper limits of normal in size. Somewhat low density of the blood pool can be seen in the setti ng of clinically significant anemia. Prosthetic aortic valve. Aneurysmal ascending aorta 4.7 cm. Conventional arch vessel branching anatom y. Nonenlarged and mildly enlarged mediastinal lymph nodes measuring up to 1.2 cm likely reactive/post i nflammatory. Trace medial right apical pneumothorax. Additional trace anterior right basilar pneumothorax. Trace a nterior left apical pneumothorax. [id number] right and small left pleural effusions with prominent adjacent atelectasis. There s eems to be near complete right lower lobe are collapsed adjacent to the effusion. There is segmental basilar left lower lobe collapse on the other side. Numerous scattered 5 mm smaller pulmonary nodules on both sides are nonspecific and should be reasses sed in 6 months Visualized upper abdomen shows gallstones measuring up to 2.9 cm. Bilateral flank edema. Bones: Moderate disc/endplate degenerative change mid to lower thoracic spine. Fractures of the poste rior bilateral first ribs. IMPRESSION: 1. POST SURGICAL CHANGES WITH FRESH MEDIAN STERNOTOMY. NONDISPLACED FRACTURES OF THE POSTERIOR BILATE RAL FIRST RIBS MAY BE IATROGENIC IN ETIOLOGY. 2. TRACE BILATERAL PNEUMOTHORACES, WELL BELOW 5%. 3. SMALL TO MODERATE RIGHT AND SMALL LEFT PLEURAL EFFUSIONS WITH PROMINENT ADJACENT ATELECTASIS. THER E IS NEARLY COMPLETE COLLAPSE OF THE RIGHT LOWER LOBE AND COLLAPSE OF THE BASILAR SEGMENTS OF THE LEF T LOWER LOBE. 4. SCATTERED 5 MM AND SMALLER PULMONARY NODULES. [address] MON[address] FOLLOW-UP CT CHEST RECOMMENDED TO REASSESS. 5. 2.9 CM GALLSTONE; ANEURYSMAL ASCENDING AORTA 4.7 CM; NONENLARGED AND MILDLY ENLARGED MEDIASTINAL L YMPH NODES MEASURING UP TO 1.2 CM LIKELY REACTIVE/POST INFLAMMATORY.
[2019-03-26 17:07] LABS: Glucose,Whole Blood 157 mg/dL (75-99)
--- NOTE | 2019-03-26 17:23 | XR ---
EXAMINATION TYPE: XR chest 1V portable DATE OF EXAM: 03/26/2019 CLINICAL HISTORY: Difficulty breathing progress study. Post open cardiac surgery. TECHNIQUE: Single AP portable upright view of the chest is obtained. COMPARISON: Chest x-ray from one day earlier and older studies. FINDINGS: There is persistent small to moderate size right pleural effusion. There is bibasilar atel ectasis and/or infiltrate. Post-CABG changes with mediastinal clips and sternal wires is redemonstrat ed. Cardiac closure device noted. There is persistent cardiomegaly with atherosclerotic aorta. Degene rative changes in both shoulders redemonstrated. IMPRESSION: Overall stable findings, cardiomegaly with small to moderate size right pleural effusio n and bibasilar acute infiltrate and/or atelectasis all are redemonstrated.
[2019-03-26] MEDS: SENNOSIDES-DOCUSATE SODIUM 1 EACH TAB PO SCH (20:39)
[2019-03-26 21:01] LABS: Glucose,Whole Blood 173 mg/dL (75-99)
[2019-03-26] MEDS ORDERED: AMIODARONE 300 MG in DEXTROSE 5% IN WATER 250 ML IV SCH ×4 (22:30→22:45)
[2019-03-27 02:01] LABS: Glucose,Whole Blood 111 mg/dL (75-99)
[2019-03-27] MEDS: ACETAMINOPHEN TAB 500 MG TAB PO PRN ×4 (02:37→22:57)
[2019-03-27 06:20] LABS: Glucose,Whole Blood 109 mg/dL (75-99)
[2019-03-27 06:50] LABS: Albumin 3.1 g/dL (3.5-5.0); Calcium 8.6 mg/dL (8.4-10.2); Total Bilirubin 1.2 mg/dL (0.2-1.3); Total Protein 5.1 g/dL (6.3-8.2)
[2019-03-27 06:51] LABS: Anisocytosis Slight; HCT 24.4 % (34.0-46.0); HGB 7.6 gm/dL (11.4-16.0); Hypochromasia Slight; MCH 30.4 pg (25.0-35.0); MCHC 31.3 g/dL (31.0-37.0); MCV 96.9 fL (80.0-100.0); Macrocytosis Slight; Mean Platelet Volume 7.2; Platelet Count 194 k/uL (150-450); RBC 2.52 m/uL (3.80-5.40); RDW 17.8 % (11.5-15.5); WBC 14.5 k/uL (3.8-10.6)
[2019-03-27] MEDS: PANTOPRAZOLE 40 MG TABLET PO SCH (06:51)
[2019-03-27] MEDS: LEVOTHYROXINE 50 MCG TAB PO SCH (06:51)
[2019-03-27] MEDS: ASCORBIC ACID 500 MG TAB PO SCH ×2 (06:51→16:52)
[2019-03-27] MEDS: INSULIN ASPART (NovoLOG) 100 UNIT/ML VIAL SQ SCH ×4 (06:51→22:49)
[2019-03-27] MEDS: FERROUS SULFATE 325 MG TAB PO SCH ×2 (06:51→16:52)
[2019-03-27] MEDS ORDERED: POTASSIUM CHLORIDE ER 20 MEQ TAB.ER PO STA (07:52)
[2019-03-27] MEDS: AMIODARONE 200 MG TAB PO SCH ×2 (08:21→20:50)
[2019-03-27] MEDS: CHOLECALCIFEROL 1,000 UNIT TAB PO SCH (08:21)
[2019-03-27] MEDS: ASPIRIN 81 MG PO SCH (08:21)
[2019-03-27] MEDS: APIXABAN 2.5 MG TABLET PO SCH ×2 (08:21→20:50)
[2019-03-27] MEDS: BISACODYL 10 MG SUPP RECTAL PRN (08:22)
[2019-03-27] MEDS: MUPIROCIN 2% OINT 22 GM TUBE NASAL SCH ×2 (08:22→20:50)
--- NOTE | 2019-03-27 08:22 | XR ---
EXAMINATION TYPE: XR chest 1V portable DATE OF EXAM: 03/27/2019 COMPARISON: Prior chest x-ray 03/26/2019 HISTORY: Postop cardiac surgery TECHNIQUE: Single frontal view of the chest is obtained. FINDINGS: Patient is rotated and post median sternotomy. Bibasilar increased density persists, the h eart remains enlarged. No evident pneumothorax. There are overlying cardiac leads. IMPRESSION: There are basilar effusions and associated atelectasis, correlate to exclude pneumonia, cardiomegaly. Follow-up recommended.
[2019-03-27] MEDS: METOPROLOL TARTRATE 25 MG TAB PO SCH ×2 (08:25→20:50)
[2019-03-27] MEDS: IPRATROPIUM-ALBUTEROL 3 ML NEB INHALATION SCH ×4 (08:34→20:08)
[2019-03-27] MEDS: BUDESONIDE 0.5 MG/2 ML NEBU INHALATION SCH ×2 (08:34→20:08)
[2019-03-27] MEDS ORDERED: AMIODARONE 200 MG TAB PO SCH (09:00)
--- NOTE | 2019-03-27 09:11 | P.PN ---
Subjective Progress Note Date: 03/27/19 Principal diagnosis: Severe aortic valve stenosis, moderate to severe mitral valve regurgitation, single-vessel coronary artery disease, and a decreased LV function, chronic systolic heart failure with a preoperative ejection fraction of 30%. History of hypertension, hyperlipidemia, hypothyroid, osteoarthritis, chronic renal failure with baseline creatinine 1.3-1.6, right internal carotid artery stenosis 50-70%, previous tobacco dependance with preoperative FEV1 93% of predicted. POD #8 aortic valve replacement with a #23 mm Avalus bioprosthetic Medtronic aortic valve, mitral valve repair with a #30 mm Carbomedics AnnuloFlex band. Coronary artery bypass grafting 1 vessel with a reverse greater saphenous vein off the aorta to the circumflex coronary artery and a clip ligation of the left atrial appendage with a 35 mm Atriclip. Endoscopic harvesting of the left gre ater saphenous vein. Intraoperative transesophageal echocardiogram. Acute postoperative bleeding, an unexpected outcome Reactive thrombocytopenia, expected POD #8 Emergent re-exploration of the chest, evacuation of clots and control of bleed. Placement of intra-aortic balloon pump. Post operative paroxysmal atrial fibrillation, unexpected. Transaminitis, unexpected. Patient is sitting up to the bedside chair. She is in no acute distress. Denies any complaints of pain, although continues to complain of shortness of breath with activity. She was able to ambulate with minimal assistance in the 3 S. cardiac stepdown unit hallway this morning and tolerated ambulating around 150 feet. She remains on 2 L nasal cannula with oxygen saturations 100%. Achieving 1000 mL on her incentive spirometry. Remote telemetry showing normal sinus rhythm with occasional PVCs. She was started on an amiodarone drip yesterday for her paroxysmal atrial fibrillation. This morning her amiodarone drip was turned off and she was converted over to oral amiodarone. Her liver enzymes continue to trend downward as her AST is 107 and her ALT is 319 this a.m. She remains hemodynamically stable and has been afebrile. Objective - Vital Signs Vital signs: Vital Signs Temp 96.5 F L 03/27/19 08:13 Pulse 72 03/27/19 08:53 Resp 19 03/27/19 08:13 BP 101/55 03/27/19 08:13 Pulse Ox 97 03/27/19 08:13 Intake & Output 07/03/27/19 03/27/19 18:59 06:59 18:59 Intake Total 610 Output Total 950 1200 Balance -340 -1200 Weight 117.3 kg Intake: Intake, IV Titration 100 Amount Dextrose 5% in Water 100 100 ml @ 618 mls/hr IV .Q10M ONE with Amiodarone 150 mg Rx#:[id number] Oral 510 Output: Urine 950 1200 Other: Voiding Method Bedside Commode # Voids 2 1 # Bowel Movements 2 ABP, PAP, CO, CI - Last Documented Arterial Blood Pressure 102/67 Pulmonary Artery Pressure 38/16 Cardiac Output 4.7 Cardiac Index 2.1 - Constitutional General appearance: Present: cooperative, morbidly obese, no acute distress - Respiratory Details: Lung sounds with few expiratory wheezes throughout, diminished bilateral bases right greater than left. Respirations are symmetrical and nonlabored. Oxygen saturation are 99% on 2 L nasal cannula. Achieving 1000 mL on her incentive spirometry. - Cardiovascular Details: Regular rhythm and bradycardic rate. S1 and S2 present, negative for S3, gallop or murmur. Sternum is stable. Remote telemetry showing sinus bradycardia heart rate 56 with occasional PVCs. Heart hugger is in place and she is demonstrating appropriate use. Knee-high LAUREL hose and sequential compression devices in place to bilateral lower extremities. +1 edema to her bilateral lower extremities. - Gastrointestinal Gastrointestinal Comment(s): Abdomen is soft, nontender and nondistended. Active bowel sounds all 4 abdominal quadrants. No guarding or rigidity. No organomegaly. Tolerating oral intake. - Genitourinary Genitourinary Comment(s): Voiding clear deidra urine. - Integumentary Integumentary Comment(s): Skin is warm and dry. No clubbing or cyanosis is present. Midline sternal incision is clean, dry and approximated. No drainage or redness is present. Some surrounding ecchymosis soft and nontender to touch. Left lower extremity EVH site is clean, dry and approximated. No drainage or redness is present. - Neurologic Neurologic: Present: CNII-XII intact - Musculoskeletal Musculoskeletal: Present: gait normal, generalized weakness, strength equal bilaterally - Psychiatric Psychiatric: Present: A&O x's 3, appropriate affect, intact judgment & insight - Allied health notes Allied health notes reviewed: nursing - Labs CBC & Chem 7: 03/27/19 06:08 03/27/19 06:08 Labs: Abnormal Lab Results - Last 24 Hours (Table) 03/26/19 03/26/19 03/26/19 Range/Units 12:00 17:01 20:59 WBC (3.8-10.6) k/uL RBC (3.80-5.40) m/uL Hgb (11.4-16.0) gm/dL Hct (34.0-46.0) % RDW (11.5-15.5) % Sodium (137-145) mmol/L Chloride (98-107) mmol/L Carbon Dioxide (22-30) mmol/L BUN (7-17) mg/dL Creatinine (0.52-1.04) mg/dL Glucose (74-99) mg/dL POC Glucose (mg/dL) 128 H 157 H 173 H (75-99) mg/dL AST (14-36) U/L ALT (9-52) U/L Total Protein (6.3-8.2) g/dL Albumin (3.5-5.0) g/dL 03/27/19 03/27/19 03/27/19 Range/Units 02:00 06:08 06:08 WBC 14.5 H (3.8-10.6) k/uL RBC 2.52 L (3.80-5.40) m/uL Hgb 7.6 L (11.4-16.0) gm/dL Hct 24.4 L (34.0-46.0) % RDW 17.8 H (11.5-15.5) % Sodium 131 L (137-145) mmol/L Chloride 90 L (98-107) mmol/L Carbon Dioxide 32 H (22-30) mmol/L BUN 64 H (7-17) mg/dL Creatinine 1.83 H (0.52-1.04) mg/dL Glucose 100 H (74-99) mg/dL POC Glucose (mg/dL) 111 H (75-99) mg/dL AST 107 H (14-36) U/L ALT 319 H (9-52) U/L Total Protein 5.1 L (6.3-8.2) g/dL Albumin 3.1 L (3.5-5.0) g/dL 03/27/19 Range/Units 06:18 WBC (3.8-10.6) k/uL RBC (3.80-5.40) m/uL Hgb (11.4-16.0) gm/dL Hct (34.0-46.0) % RDW (11.5-15.5) % Sodium (137-145) mmol/L Chloride (98-107) mmol/L Carbon Dioxide (22-30) mmol/L BUN (7-17) mg/dL Creatinine (0.52-1.04) mg/dL Glucose (74-99) mg/dL POC Glucose (mg/dL) 109 H (75-99) mg/dL AST (14-36) U/L ALT (9-52) U/L Total Protein (6.3-8.2) g/dL Albumin (3.5-5.0) g/dL - Imaging and Cardiology Chest x-ray: report reviewed, image reviewed Assessment and Plan Assessment: 1. Aortic valve stenosis, with severe aortic valve regurgitation, status post aortic valve replacement 2. Moderate to severe mitral valve regurgitation, status post mitral valve repair 3. Single-vessel coronary artery disease, status post coronary artery bypass grafting surgery 1 vessel 4. Decreased LV function with preoperative ejection fraction of 30% 5. Hypertension 6. Hyperlipidemia 7. Hypothyroid 8. Non-critical carotid stenosis with a 50-70% right ICA stenosis 9. Acute postoperative bleeding, an unexpected outcome 10. Postoperative Hypotension, resolved 11. Chronic renal failure, baseline creatinine 1.3-1.6 12. Thrombocytopenia, reactive HIT panel negative 13. Postoperative paroxysmal atrial fibrillation, status post clip ligation of the left atrial appendage 14. Transaminitis 15. Osteoarthritis 16. Postoperative hyponatremia, unexpected Plan: 1. Continue to maximize medical therapy with aspirin and beta heriberto. We will decrease her metoprolol tartrate 25 mg by mouth twice a day 2. Wean oxygen as tolerated. Encourage use of her incentive spirometry every hour while awake. 3. Continue to hold statin. We will restart her statin once her liver enzymes have normalized. 4. Bronchodilators management per pulmonary medicine. 5. Monitor daily labs and chest x-rays. Replace electrolytes per protocol. 6. GI and DVT prophylaxis. 7. Pain control current medication regimen. No Toradol due to her elevated BUN and creatinine. 8. Discontinue Lasix. 9. Continue Iron, vitamin C. hemoglobin remains 7.6 this a.m. 10. Continue 1500 mL in 24 hour. fluid restriction for her sodium level of 131. 11. Insulin management per primary care service. 12. Discharge planning in progress. Anticipate discharge to inpatient rehab within the next [address] Nichole's consult noted and appreciated 13. Continue daily weights. Weight today is 117 kg. 14. Continue on Eliquis 2.5 mg by mouth twice a day. 15. Discontinue amiodarone drip. Start amiodarone 200 mg by mouth twice a day for atrial fibrillation prophylaxis. 16. Increase activity as tolerated. Physical therapy/occupational therapy/cardiac rehab following. 17. More recommendations to follow based on patient's clinical course. Time with Patient: Greater than 30
[2019-03-27] MEDS ORDERED: POTASSIUM CHLORIDE ER 20 MEQ TAB.ER PO SCH (10:00)
--- NOTE | 2019-03-27 10:24 | P.PN ---
Subjective Progress Note Date: 03/27/19 This is a 79-year-old femalewith history of aortic valve replacement and mitral valves repair and also single-vessel bypass surgery. She was seen and examined this morning, up ambulating with cardiac rehab and overall doing quite well. Blood pressure 96/60 with a heart rate in the 90s, afebrile. 92% on room air. White blood cell count 13.3, hemoglobin 7.6, platelet count 147. Sodium 1:30, potassium 3.4, BUN 55 and creatinine 1.4. AST 168, ALT 386. 03/27/2019 Patient seen and examined this morning, feeling much stronger overall today, ambulated in the hallway today with assistance. Blood pressure 100/50 with a heart rate in the 60s. Temperature 96.5. White blood cell count 14.5, hemoglob in 7.6, platelet count 194. Sodium 131, potassium 4.0, BUN 64 and creatinine 1.8. AST 107, ALT 319, alk phos 111. Objective - Vital Signs Vital signs: Vital Signs Temp 96.5 F L 03/27/19 08:13 Pulse 72 03/27/19 08:53 Resp 19 03/27/19 08:13 BP 101/55 03/27/19 08:13 Pulse Ox 97 03/27/19 08:13 Intake & Output 03/26/19 03/27/19 03/27/19 18:59 06:59 18:59 Intake Total 610 240 Output Total 950 1200 Balance -340 -1200 240 Weight 117.3 kg Intake: Intake, IV Titration 100 Amount Dextrose 5% in Water 100 100 ml @ 618 mls/hr IV .Q10M ONE with Amiodarone 150 mg Rx#:[id number] Oral 510 240 Output: Urine 950 1200 Other: Voiding Method Bedside Commode # Voids 2 1 # Bowel Movements 2 ABP, PAP, CO, CI - Last Documented Arterial Blood Pressure 102/67 Pulmonary Artery Pressure 38/16 Cardiac Output 4.7 Cardiac Index 2.1 - Exam GENERAL EXAM: Patient is alert and oriented and doesn't appear to be in any acute distress HEENT: Normocephalic. Normal reaction of pupils, equal size, normal range of extraocular motion. No erythema or exudates in the throat. NECK: No masses, no nuchal rigidity. CHEST: No chest wall deformity. LUNGS: diminished air exchange, bilaterally HEART: S1 and S2 normal with no audible mumurs or gallops. irregular rhythm ABDOMEN: No hepatosplenomegaly, normal bowel sounds, no guarding or rigidity. SKIN: No rashes CENTRAL NERVOUS SYSTEM: No focal deficits. EXTREMITIES: [No cyanosis, clubbing or edema.]axilla defaults - Labs CBC & Chem 7: 03/27/19 06:08 03/27/19 06:08 Labs: Abnormal Lab Results - Last 24 Hours (Table) 03/26/19 03/26/19 03/26/19 Range/Units 12:00 17:01 20:59 WBC (3.8-10.6) k/uL RBC (3.80-5.40) m/uL Hgb (11.4-16.0) gm/dL Hct (34.0-46.0) % RDW (11.5-15.5) % Sodium (137-145) mmol/L Chloride (98-107) mmol/L Carbon Dioxide (22-30) mmol/L BUN (7-17) mg/dL Creatinine (0.52-1.04) mg/dL Glucose (74-99) mg/dL POC Glucose (mg/dL) 128 H 157 H 173 H (75-99) mg/dL AST (14-36) U/L ALT (9-52) U/L Total Protein (6.3-8.2) g/dL Albumin (3.5-5.0) g/dL 03/27/19 03/27/19 03/27/19 Range/Units 02:00 06:08 06:08 WBC 14.5 H (3.8-10.6) k/uL RBC 2.52 L (3.80-5.40) m/uL Hgb 7.6 L (11.4-16.0) gm/dL Hct 24.4 L (34.0-46.0) % RDW 17.8 H (11.5-15.5) % Sodium 131 L (137-145) mmol/L Chloride 90 L (98-107) mmol/L Carbon Dioxide 32 H (22-30) mmol/L BUN 64 H (7-17) mg/dL Creatinine 1.83 H (0.52-1.04) mg/dL Glucose 100 H (74-99) mg/dL POC Glucose (mg/dL) 111 H (75-99) mg/dL AST 107 H (14-36) U/L ALT 319 H (9-52) U/L Total Protein 5.1 L (6.3-8.2) g/dL Albumin 3.1 L (3.5-5.0) g/dL 03/27/19 Range/Units 06:18 WBC (3.8-10.6) k/uL RBC (3.80-5.40) m/uL Hgb (11.4-16.0) gm/dL Hct (34.0-46.0) % RDW (11.5-15.5) % Sodium (137-145) mmol/L Chloride (98-107) mmol/L Carbon Dioxide (22-30) mmol/L BUN (7-17) mg/dL Creatinine (0.52-1.04) mg/dL Glucose (74-99) mg/dL POC Glucose (mg/dL) 109 H (75-99) mg/dL AST (14-36) U/L ALT (9-52) U/L Total Protein (6.3-8.2) g/dL Albumin (3.5-5.0) g/dL Assessment and Plan Plan: Assessment and Plan 1. Aortic valve stenosis, with severe aortic valve regurgitation, status post aortic valve replacement and Moderate to severe mitral valve regurgitation, status post mitral valve repair 2 Single-vessel coronary artery disease, status post coronary artery bypass grafting surgery 1 vessel 3 Decreased LV function with preoperative ejection fraction of 30%, improved following surgery 4 shortness of breath with development of a right-sided pleural effusion 5. Hypertension 6. Hyperlipidemia 7. Hypothyroid 8. Non-critical carotid stenosis with a 50-70% right ICA stenosis 9. New-onset atrial fibrillation rate controlled and currently the patient on Eliquis 10. Postoperative Hypotension, resolved 11. Chronic renal failure, baseline creatinine 1.3-1.6 12. Thrombocytopenia, reactive HIT panel negative Plan From cardiology's perspective, we'll recommend to continue patient on her current medication. She will be discharged home soon and follow-up with Dr. MIGUEL A Lima in the office post discharge. DNP note has been reviewed, I agree with a documented findings and plan of care. Patient was seen and examined.
--- NOTE | 2019-03-27 11:12 | P.PN ---
Subjective Progress Note Date: 03/27/19 Principal diagnosis: Severe aortic stenosis and regurgitation, moderate to severe mitral regurgitation, one-vessel coronary artery disease. This is a 79-year-old white female patient of Dr. Mati Vale, with a known history of aortic stenosis and regurgitation, hypertension, hyperlipidemia, hypothyroidism, moderate noncritical carotid artery stenosis, who was found to have significant decrease in LV function based on her echocardiogram in December 2018 with systolic/diastolic dysfunction. Recent underwent transesophageal echocardiogram on 02/05/2019 showing sclerotic and calcific aortic valve with severe aortic stenosis with area of the aortic valve calculated in the range of 1-1.1. There was moderate degree of mitral regurgitation, severely impaired left ventricle systolic function with estimated ejection fraction of 30%, and no evidence of thrombus in the left atrial appendage. Catheterization showed diffusely diseased LAD distally, RCA was dominant and disease free, circumflex had a 60-70% mid lesion. Yesterday on 03/19/2019 patient underwent aortic valve replacement with a #23 mm a villous hypostatic Medtronic aortic valve, mitral valve repair with a #30 mm CarboMedics annular flex band, and single-vessel coronary artery bypass grafting with reverse SVG to the circumflex and ligation of the left atrial appendage with a #35 mm Atriclip. The patient is seen today 03/27/2019 in follow-up on the selective care unit. She is currently sitting up in a chair at the bedside. Awake and alert in no acute distress. She is currently maintaining good O2 saturations in the upper 90s on 2 L/m per nasal cannula. She's been afebrile. Hemodynamically stable. White count 14.5. Hemoglobin 7.6. Creatinine 1.83. AST 107. ALT 319. She is status post 6 units of packed red blood cells. She remains on amiodarone. Anticoagulated with Eliquis. Continued on bronchodilators. She is working well with the incentive spirometer. Needs increased encouragement. Today's chest x- ray was reviewed. No plans for thoracentesis at this point. Objective - Vital Signs Vital signs: Vital Signs Temp 96.5 F L 03/27/19 08:13 Pulse 72 03/27/19 08:53 Resp 19 03/27/19 08:13 BP 101/55 03/27/19 08:13 Pulse Ox 97 03/27/19 08:13 Intake & Output 03/26/19 03/27/19 03/27/19 18:59 06:59 18:59 Intake Total 610 490 Output Total 950 1200 Balance -340 -1200 490 Weight 117.3 kg Intake: Intake, IV Titration 100 Amount Dextrose 5% in Water 100 100 ml @ 618 mls/hr IV .Q10M ONE with Amiodarone 150 mg Rx#:[id number] Oral 510 490 Output: Urine 950 1200 Other: Voiding Method Bedside Commode # Voids 2 1 # Bowel Movements 2 ABP, PAP, CO, CI - Last Documented Arterial Blood Pressure 102/67 Pulmonary Artery Pressure 38/16 Cardiac Output 4.7 Cardiac Index 2.1 - Exam GENERAL EXAM: Alert, oriented 79-year-old white female patient, on 2 L in no acute distress. HEAD: Normocephalic/atraumatic. EYES: Normal reaction of pupils, equal size. Conjunctiva pink, sclera white. NOSE: Clear with pink turbinates. THROAT: No erythema or exudates. NECK: No masses, no JVD, no thyroid enlargement, no adenopathy. CHEST: No chest wall deformity. Symmetrical expansion. Midsternal incision is clean dry and intact, covered with surgical dressing. LUNGS: Equal air entry with crackles in the right posterior base, diminished CVS: Regular rate and rhythm, normal S1 and S2, no gallops, no murmurs, no rubs ABDOMEN: Soft, nontender. No hepatosplenomegaly, normal bowel sounds, no guarding or rigidity. EXTREMITIES: No clubbing, no edema, no cyanosis, 2+ pulses and upper and lower extremities. MUSCULOSKELETAL: Muscle strength and tone normal. SPINE: No scoliosis or deformity SKIN: No rashes CENTRAL NERVOUS SYSTEM: Awake, and alert, oriented times three. No focal deficits, tone is normal in all 4 extremities. - Labs CBC & Chem 7: 03/27/19 06:08 03/27/19 06:08 Labs: Abnormal Lab Results - Last 24 Hours (Table) 03/26/19 03/26/19 03/26/19 Range/Units 12:00 17:01 20:59 WBC (3.8-10.6) k/uL RBC (3.80-5.40) m/uL Hgb (11.4-16.0) gm/dL Hct (34.0-46.0) % RDW (11.5-15.5) % Sodium (137-145) mmol/L Chloride (98-107) mmol/L Carbon Dioxide (22-30) mmol/L BUN (7-17) mg/dL Creatinine (0.52-1.04) mg/dL Glucose (74-99) mg/dL POC Glucose (mg/dL) 128 H 157 H 173 H (75-99) mg/dL AST (14-36) U/L ALT (9-52) U/L Total Protein (6.3-8.2) g/dL Albumin (3.5-5.0) g/dL 03/27/19 03/27/19 03/27/19 Range/Units 02:00 06:08 06:08 WBC 14.5 H (3.8-10.6) k/uL RBC 2.52 L (3.80-5.40) m/uL Hgb 7.6 L (11.4-16.0) gm/dL Hct 24.4 L (34.0-46.0) % RDW 17.8 H (11.5-15.5) % Sodium 131 L (137-145) mmol/L Chloride 90 L (98-107) mmol/L Carbon Dioxide 32 H (22-30) mmol/L BUN 64 H (7-17) mg/dL Creatinine 1.83 H (0.52-1.04) mg/dL Glucose 100 H (74-99) mg/dL POC Glucose (mg/dL) 111 H (75-99) mg/dL AST 107 H (14-36) U/L ALT 319 H (9-52) U/L Total Protein 5.1 L (6.3-8.2) g/dL Albumin 3.1 L (3.5-5.0) g/dL 03/27/19 Range/Units 06:18 WBC (3.8-10.6) k/uL RBC (3.80-5.40) m/uL Hgb (11.4-16.0) gm/dL Hct (34.0-46.0) % RDW (11.5-15.5) % Sodium (137-145) mmol/L Chloride (98-107) mmol/L Carbon Dioxide (22-30) mmol/L BUN (7-17) mg/dL Creatinine (0.52-1.04) mg/dL Glucose (74-99) mg/dL POC Glucose (mg/dL) 109 H (75-99) mg/dL AST (14-36) U/L ALT (9-52) U/L Total Protein (6.3-8.2) g/dL Albumin (3.5-5.0) g/dL Assessment and Plan Assessment: Assessment: #1. Severe aortic valve stenosis, and moderate to severe mitral valve regurgi tation, and coronary artery disease status post aortic valve replacement with a bioprosthetic valve, mitral valve repair with the annual flex band, and single vessel bypass grafting with reverse SVG off of the aorta to the circumflex artery and left atrial appendage exclusion with the ATriclip, #2. Postoperative bleeding, status post emergent reexploration of the chest and evacuation of clot and control of bleeding #3. Acute blood loss anemia related to the above, status post transfusion with 6 units of RBCs, 5 units of cryoprecipitate, 3 units of rest frozen plasma, and 2 units of platelets #4. Routine ventilator management #5. Secondary pulmonary hypertension #6. Ischemic cardiomyopathy #7. Hypertension #8. Hyperlipidemia #9. Hypothyroidism Plan: The patient was seen and evaluated by Dr. Bruce. Chest x-ray and labs reviewed. Continues to work with the incentive spirometer. On 2 L nasal cannula. Less edema today. We'll increase her activity as tolerated. We will continue to follow and make further recommendations based on her clinical status. I, the cosigning physician, performed a history & physical examination of the patient. Lungs sounds crackles in the right base, diminished. Maintaining good O2 saturations in the 90s on 2 L/m per nasal cannula. I discussed the assessment and plan of care with my nurse practitioner, Ariella Betancourt. I attest to the above note as dictated by her.
[2019-03-27 11:48] LABS: Glucose,Whole Blood 111 mg/dL (75-99)
[2019-03-27 16:36] LABS: Glucose,Whole Blood 142 mg/dL (75-99)
[2019-03-27 20:37] LABS: Glucose,Whole Blood 127 mg/dL (75-99)
[2019-03-27] MEDS: SENNOSIDES-DOCUSATE SODIUM 1 EACH TAB PO SCH (20:50)
[2019-03-28 02:51] LABS: Glucose,Whole Blood 146 mg/dL (75-99)
[2019-03-28] MEDS: PANTOPRAZOLE 40 MG TABLET PO SCH (06:38)
[2019-03-28] MEDS: LEVOTHYROXINE 50 MCG TAB PO SCH (06:38)
[2019-03-28] MEDS: FERROUS SULFATE 325 MG TAB PO SCH ×2 (06:38→17:07)
[2019-03-28] MEDS: ASCORBIC ACID 500 MG TAB PO SCH ×2 (06:38→17:07)
[2019-03-28] MEDS: INSULIN ASPART (NovoLOG) 100 UNIT/ML VIAL SQ SCH ×4 (06:39→21:35)
[2019-03-28 06:40] LABS: Glucose,Whole Blood 124 mg/dL (75-99)
[2019-03-28] MEDS: APIXABAN 2.5 MG TABLET PO SCH ×2 (07:37→19:57)
[2019-03-28] MEDS: CHOLECALCIFEROL 1,000 UNIT TAB PO SCH (07:37)
[2019-03-28] MEDS: ASPIRIN 81 MG PO SCH (07:37)
[2019-03-28] MEDS: METOPROLOL TARTRATE 25 MG TAB PO SCH (07:37)
[2019-03-28] MEDS: MUPIROCIN 2% OINT 22 GM TUBE NASAL SCH ×2 (07:38→19:57)
[2019-03-28] MEDS: AMIODARONE 200 MG TAB PO SCH (07:38)
[2019-03-28 07:39] LABS: Anisocytosis Slight; HCT 23.8 % (34.0-46.0); HGB 7.4 gm/dL (11.4-16.0); Hypochromasia Slight; MCH 30.3 pg (25.0-35.0); MCHC 31.2 g/dL (31.0-37.0); Macrocytosis Slight; Mean Platelet Volume 7.3; Platelet Count 204 k/uL (150-450); Poikilocytosis Slight; RBC 2.45 m/uL (3.80-5.40); WBC 14.8 k/uL (3.8-10.6)
[2019-03-28 08:05] LABS: Albumin 3.1 g/dL (3.5-5.0); Calcium 8.6 mg/dL (8.4-10.2); Potassium 4.5 mmol/L (3.5-5.1); Total Bilirubin 1.5 mg/dL (0.2-1.3); Total Protein 5.1 g/dL (6.3-8.2)
[2019-03-28] MEDS: IPRATROPIUM-ALBUTEROL 3 ML NEB INHALATION SCH ×5 (08:12→19:41)
[2019-03-28] MEDS: BUDESONIDE 0.5 MG/2 ML NEBU INHALATION SCH ×2 (08:12)
--- NOTE | 2019-03-28 08:17 | XR ---
EXAMINATION TYPE: XR chest 1V portable DATE OF EXAM: 03/28/2019 COMPARISON: Prior chest x-ray 03/27/2019, chest CT 03/26/2019 HISTORY: Postop cardiac surgery TECHNIQUE: Single frontal view of the chest is obtained. FINDINGS: Patient is post median sternotomy. Heart remains enlarged. There is blunting of the costop hrenic angles. Aorta appears prominently. Central vascularity and interstitium are increased. No evid ent pneumothorax. IMPRESSION: Cardiomegaly, correlate for possible interstitial edema, pulmonary venous hypertension. Probable small basilar effusions and associated atelectasis, correlate to exclude pneumonia. Aortic a neurysm.
[2019-03-28 08:58] LABS: Amylase 87 U/L (30-110)
--- NOTE | 2019-03-28 09:55 | P.PN ---
Subjective Progress Note Date: 03/28/19 Principal diagnosis: Severe aortic valve stenosis, moderate to severe mitral valve regurgitation, single-vessel coronary artery disease, and a decreased LV function, chronic systolic heart failure with a preoperative ejection fraction of 30%. History of hypertension, hyperlipidemia, hypothyroid, osteoarthritis, chronic renal failure with baseline creatinine 1.3-1.6, right internal carotid artery stenosis 50-70%, previous tobacco dependance with preoperative FEV1 93% of predicted. POD #9 aortic valve replacement with a #23 mm Avalus bioprosthetic Medtronic aortic valve, mitral valve repair with a #30 mm Carbomedics AnnuloFlex band. Coronary artery bypass grafting 1 vessel with a reverse greater saphenous vein off the aorta to the circumflex coronary artery and a clip ligation of the left atrial appendage with a 35 mm Atriclip. Endoscopic harvesting of the left gre ater saphenous vein. Intraoperative transesophageal echocardiogram. Acute postoperative bleeding, hemorrhagic shock, an unexpected outcome Reactive thrombocytopenia, expected POD #9 Emergent re-exploration of the chest, evacuation of clots and control of bleed. Placement of intra-aortic balloon pump. Post operative atrial fibrillation, unexpected but potential outcome due to multiple comorbidities. Transaminitis, unexpected, thought to be from amiodarone. The patient is currently sitting up in a recliner in no acute distress. She does complain of post surgical chest pain and continuing shortness of breath. Overall she states she does not feel good today and was feeling much better y esterday. She did ambulate in the hallway 4 times yesterday and showered, has a general lack of energy this morning. Her BUN and creatinine continue to trend upwards, liver enzymes had been trending down but are elevated again today, was restarted on amiodarone for A. fib. She remains in sinus but is bradycardic with heart rate in the 50s. Her blood pressure remains marginal. Her chest x- ray demonstrates atelectasis and evidence of volume overload, however intravascularly she appears dry. She has had negative fluid balance for the last several days. Objective - Vital Signs Vital signs: Vital Signs Temp 96.3 F L 03/28/19 07:41 Pulse 57 L 03/28/19 07:41 Resp 18 03/28/19 07:41 BP 99/60 03/28/19 07:41 Pulse Ox 95 03/28/19 07:41 Intake & Output 03/27/19 03/28/19 03/28/19 18:59 06:59 18:59 Intake Total 850 120 222 Output Total 300 600 Balance 550 -480 222 Weight 117.3 kg 117.2 kg Intake: Oral 850 120 222 Output: Urine 300 600 Other: Voiding Method Bedside Commode # Voids 1 ABP, PAP, CO, CI - Last Documented Arterial Blood Pressure 102/67 Pulmonary Artery Pressure 38/16 Cardiac Output 4.7 Cardiac Index 2.1 - Constitutional General appearance: Present: cooperative, no acute distress, obese - Respiratory Details: Lungs sounds diminished bilaterally with faint expiratory wheezes heard posteriorly. Respirations even, non-labored at rest but slightly labored with activity, currently on room air with oxygen saturation 92-95%. Only able to achieve 750 mL on incentive spirometry. Strong cough with [id number] sputum per patient. - Cardiovascular Details: S1/S2 present. Slow but regular rate and rhythm, sinus bradycardia on telemetry. Sternum stable. Palpable peripheral pulses bilaterally. Bilateral lower extremity edema present. No calf pain or tenderness noted. Heart hugger in place with patient demonstrating appropriate use. Antiembolism stockings, SCDs present. - Gastrointestinal Gastrointestinal Comment(s): Abdomen soft, nontender, nondistended. Active bowel sounds present 4 quadrants. Tolerating diet. Positive bowel movement. - Genitourinary Genitourinary Comment(s): Continues to void clear yellow urine, 100-300 mL at a time - Integumentary Integumentary Comment(s): Skin is warm and dry with evidence of good perfusion. Anterior chest incision well approximated and covered with dry intact dressing. Left lower extremity EVH site well approximated. - Neurologic Neurologic: Present: CNII-XII intact - Musculoskeletal Musculoskeletal: Present: gait normal, generalized weakness, strength equal bilaterally - Psychiatric Psychiatric: Present: A&O x's 3, appropriate affect, intact judgment & insight - Allied health notes Allied health notes reviewed: nursing - Labs CBC & Chem 7: 03/28/19 07:00 03/28/19 07:00 Labs: Abnormal Lab Results - Last 24 Hours (Table) 03/27/19 03/27/19 03/27/19 Range/Units 11:46 16:31 20:36 WBC (3.8-10.6) k/uL RBC (3.80-5.40) m/uL Hgb (11.4-16.0) gm/dL Hct (34.0-46.0) % RDW (11.5-15.5) % Sodium (137-145) mmol/L Chloride (98-107) mmol/L Carbon Dioxide (22-30) mmol/L BUN (7-17) mg/dL Creatinine (0.52-1.04) mg/dL Glucose (74-99) mg/dL POC Glucose (mg/dL) 111 H 142 H 127 H (75-99) mg/dL Total Bilirubin (0.2-1.3) mg/dL AST (14-36) U/L ALT (9-52) U/L Total Protein (6.3-8.2) g/dL Albumin (3.5-5.0) g/dL Lipase (23-300) U/L 03/28/19 03/28/19 03/28/19 Range/Units 02:49 06:39 07:00 WBC 14.8 H (3.8-10.6) k/uL RBC 2.45 L (3.80-5.40) m/uL Hgb 7.4 L (11.4-16.0) gm/dL Hct 23.8 L (34.0-46.0) % RDW 18.0 H (11.5-15.5) % Sodium (137-145) mmol/L Chloride (98-107) mmol/L Carbon Dioxide (22-30) mmol/L BUN (7-17) mg/dL Creatinine (0.52-1.04) mg/dL Glucose (74-99) mg/dL POC Glucose (mg/dL) 146 H 124 H (75-99) mg/dL Total Bilirubin (0.2-1.3) mg/dL AST (14-36) U/L ALT (9-52) U/L Total Protein (6.3-8.2) g/dL Albumin (3.5-5.0) g/dL Lipase (23-300) U/L 03/28/19 03/28/19 Range/Units 07:00 07:00 WBC (3.8-10.6) k/uL RBC (3.80-5.40) m/uL Hgb (11.4-16.0) gm/dL Hct (34.0-46.0) % RDW (11.5-15.5) % Sodium 130 L (137-145) mmol/L Chloride 89 L (98-107) mmol/L Carbon Dioxide 32 H (22-30) mmol/L BUN 73 H (7-17) mg/dL Creatinine 2.06 H (0.52-1.04) mg/dL Glucose 110 H (74-99) mg/dL POC Glucose (mg/dL) (75-99) mg/dL Total Bilirubin 1.5 H (0.2-1.3) mg/dL AST 553 H (14-36) U/L ALT 627 H (9-52) U/L Total Protein 5.1 L (6.3-8.2) g/dL Albumin 3.1 L (3.5-5.0) g/dL Lipase 455 H (23-300) U/L - Imaging and Cardiology Chest x-ray: report reviewed, image reviewed Assessment and Plan Assessment: 1. Severe aortic valve stenosis, status post bioprosthetic aortic valve replacement 2. Moderate to severe mitral valve regurgitation, status post mitral valve repair 3. Single-vessel coronary artery disease, status post 1 vessel CABG 4. Decreased LV function, chronic systolic heart failure, ischemic cardiomyopathy with preoperative EF 30%, EF improved to 40-45% post surgery 5. History of hypertension 6. Hyperlipidemia 7. Hypothyroid 8. Osteoarthritis 9. Right internal carotid artery stenosis 50-69% 10. Acute on chronic renal failure, baseline creatinine 1.3-1.6 11. Previous tobacco dependence with preoperative FEV1 93% of predicted 12. Acute postoperative bleeding, hemorrhagic shock, status post emergent re- exploration of the chest with evacuation of clots and control of the bleed 13. Thrombocytopenia, reactive 14. Postoperative atrial fibrillation, status post clip ligation of left atrial appendage 15. Transaminitis, likely related to amiodarone Plan: 1. Continue low-dose aspirin, beta heriberto therapy. Will increase beta heriberto therapy as tolerated, decreased to 25 mg twice daily yesterday. Continue to hold statin secondary to transaminitis. 2. Discontinue amiodarone. Continue Eliquis for anticoagulation. 3. Patient would benefit from ARLEN inhibitor for afterload reduction, however contraindicated at this time secondary to acute kidney injury. 4. Continue fluid restrictions, daily weights, strict accurate I and O's. 5. Encourage incentive spirometry 10 times every hour while awake. Patient needs aggressive pulmonary hygiene. 6. Increase activity, ambulate as tolerated. PT/OT/cardiac rehab following. 7. Will monitor daily labs and x-rays. Electrolytes replacement per protocol. Will transfuse 1 unit packed red blood cells today, will repeat labs and if indicated may transfuse second unit. 8. GI/DVT prophylaxis. 9. Insulin management per primary care service. 10. Pain control current medication regimen. 11. Continue Iron, vitamin C. 12. Discharge planning in progress. Anticipate discharge to inpatient rehab, insurance authorization has been obtained. Will discharge to inpatient rehab once patient is medically stable. 13. More recommendations to follow as patient progresses. Time with Patient: Greater than 30
--- NOTE | 2019-03-28 11:56 | P.PN ---
Subjective Progress Note Date: 03/28/19 This is a 79-year-old femalewith history of aortic valve replacement and mitral valves repair and also single-vessel bypass surgery. She was seen and examined this morning, up ambulating with cardiac rehab and overall doing quite well. Blood pressure 96/60 with a heart rate in the 90s, afebrile. 92% on room air. White blood cell count 13.3, hemoglobin 7.6, platelet count 147. Sodium 1:30, potassium 3.4, BUN 55 and creatinine 1.4. AST 168, ALT 386. 03/27/2019 Patient seen and examined this morning, feeling much stronger overall today, ambulated in the hallway today with assistance. Blood pressure 100/50 with a heart rate in the 60s. Temperature 96.5. White blood cell count 14.5, hemoglob in 7.6, platelet count 194. Sodium 131, potassium 4.0, BUN 64 and creatinine 1.8. AST 107, ALT 319, alk phos 111. 03/28/2019 patient was seen and examined this morning, she states she does not feel well overall today. Extremely weak, and generally just states she does not feel right.her white blood cell count today is 14.8 hemoglobin 7.4, platelet count 204. Sodium 1:30, potassium 4.5, BUN 73, creatinine 2.0. Total bilirubin 1.5 AST 553 ALT 627 amylase 87 lipase 455. Statins are on hold as well as amiodarone. I did speak with a meat the cardiothoracic DISC RECORDIST, who stated that the patient will receive a packed red blood cells today with additional Lasix. Her current Lasix dosing has been placed on hold. Chest x-ray does show bibasilar effusions with associated atelectasis. Objective - Vital Signs Vital signs: Vital Signs Temp 97.5 F L 03/28/19 11:39 Pulse 60 03/28/19 11:39 Resp 16 03/28/19 11:39 BP 101/56 03/28/19 11:39 Pulse Ox 95 03/28/19 11:39 Intake & Output 03/27/19 03/28/19 03/28/19 18:59 06:59 18:59 Intake Total 850 120 222 Output Total 300 600 Balance 550 -480 222 Weight 117.3 kg 117.2 kg Intake: Oral 850 120 222 Blood Product 0 Rc As-1 Unit 0 [id number] Output: Urine 300 600 Other: Voiding Method Bedside Commode # Voids 1 1 ABP, PAP, CO, CI - Last Documented Arterial Blood Pressure 102/67 Pulmonary Artery Pressure 38/16 Cardiac Output 4.7 Cardiac Index 2.1 - Exam GENERAL EXAM: Patient is alert and oriented and doesn't appear to be in any acute distress HEENT: Normocephalic. Normal reaction of pupils, equal size, normal range of ex traocular motion. No erythema or exudates in the throat. NECK: No masses, no nuchal rigidity. CHEST: No chest wall deformity. LUNGS: diminished air exchange, bilaterally with crackles heard at the bases HEART: S1 and S2 normal with no audible mumurs or gallops. irregular rhythm ABDOMEN: No hepatosplenomegaly, normal bowel sounds, no guarding or rigidity. SKIN: No rashes CENTRAL NERVOUS SYSTEM: No focal deficits. EXTREMITIES: [No cyanosis, clubbing or edema.]axilla defaults - Labs CBC & Chem 7: 03/28/19 07:00 03/28/19 07:00 Labs: Abnormal Lab Results - Last 24 Hours (Table) 03/13/19 03/27/19 03/27/19 Range/Units 09:00 16:31 20:36 WBC (3.8-10.6) k/uL RBC (3.80-5.40) m/uL Hgb (11.4-16.0) gm/dL Hct (34.0-46.0) % RDW (11.5-15.5) % Sodium (137-145) mmol/L Chloride (98-107) mmol/L Carbon Dioxide (22-30) mmol/L BUN (7-17) mg/dL Creatinine (0.52-1.04) mg/dL Glucose (74-99) mg/dL POC Glucose (mg/dL) 142 H 127 H (75-99) mg/dL Total Bilirubin (0.2-1.3) mg/dL AST (14-36) U/L ALT (9-52) U/L Total Protein (6.3-8.2) g/dL Albumin (3.5-5.0) g/dL Lipase (23-300) U/L Crossmatch See Detail 03/28/19 03/28/19 03/28/19 Range/Units 02:49 06:39 07:00 WBC 14.8 H (3.8-10.6) k/uL RBC 2.45 L (3.80-5.40) m/uL Hgb 7.4 L (11.4-16.0) gm/dL Hct 23.8 L (34.0-46.0) % RDW 18.0 H (11.5-15.5) % Sodium (137-145) mmol/L Chloride (98-107) mmol/L Carbon Dioxide (22-30) mmol/L BUN (7-17) mg/dL Creatinine (0.52-1.04) mg/dL Glucose (74-99) mg/dL POC Glucose (mg/dL) 146 H 124 H (75-99) mg/dL Total Bilirubin (0.2-1.3) mg/dL AST (14-36) U/L ALT (9-52) U/L Total Protein (6.3-8.2) g/dL Albumin (3.5-5.0) g/dL Lipase (23-300) U/L Crossmatch 03/28/19 03/28/19 03/28/19 Range/Units 07:00 07:00 09:09 WBC (3.8-10.6) k/uL RBC (3.80-5.40) m/uL Hgb (11.4-16.0) gm/dL Hct (34.0-46.0) % RDW (11.5-15.5) % Sodium 130 L (137-145) mmol/L Chloride 89 L (98-107) mmol/L Carbon Dioxide 32 H (22-30) mmol/L BUN 73 H (7-17) mg/dL Creatinine 2.06 H (0.52-1.04) mg/dL Glucose 110 H (74-99) mg/dL POC Glucose (mg/dL) (75-99) mg/dL Total Bilirubin 1.5 H (0.2-1.3) mg/dL AST 553 H (14-36) U/L ALT 627 H (9-52) U/L Total Protein 5.1 L (6.3-8.2) g/dL Albumin 3.1 L (3.5-5.0) g/dL Lipase 455 H (23-300) U/L Crossmatch See Detail Assessment and Plan Plan: Assessment and Plan 1. Aortic valve stenosis, with severe aortic valve regurgitation, status post aortic valve replacement and Moderate to severe mitral valve regurgitation, status post mitral valve repair 2 Single-vessel coronary artery disease, status post coronary artery bypass grafting surgery 1 vessel 3 Decreased LV function with preoperative ejection fraction of 30%, improved following surgery 4 shortness of breath with development of a right-sided pleural effusion 5. Hypertension 6. Hyperlipidemia 7. Hypothyroid 8. Non-critical carotid stenosis with a 50-70% right ICA stenosis 9. New-onset atrial fibrillation rate controlled and currently the patient on Eliquis 10. Postoperative Hypotension, resolved 11. Chronic renal failure, baseline creatinine 1.3-1.6 12. Thrombocytopenia, reactive HIT panel negative Plan It is noted that the patient's liver enzymes are elevated today as well as the creatinine continues to rise. Hemoglobin remains at 7.6.amiodarone and statins continue to be on hold. Patient will received packed red blood cells today as per cardiothoracic surgery. She's also been encouraged regarding the continued use of her incentive spirometer. DNP note has been reviewed, I agree with a documented findings and plan of care. Patient was seen and examined.
[2019-03-28 11:58] LABS: Glucose,Whole Blood 119 mg/dL (75-99)
--- NOTE | 2019-03-28 14:23 | P.PN ---
Subjective Progress Note Date: 03/28/19 Principal diagnosis: Severe aortic stenosis and regurgitation, moderate to severe mitral regurgitation, one-vessel coronary artery disease. This is a 79-year-old white female patient of Dr. Mati Vale, with a known history of aortic stenosis and regurgitation, hypertension, hyperlipidemia, hypothyroidism, moderate noncritical carotid artery stenosis, who was found to have significant decrease in LV function based on her echocardiogram in December 2018 with systolic/diastolic dysfunction. Recent underwent transesophageal echocardiogram on 02/05/2019 showing sclerotic and calcific aortic valve with severe aortic stenosis with area of the aortic valve calculated in the range of 1-1.1. There was moderate degree of mitral regurgitation, severely impaired left ventricle systolic function with estimated ejection fraction of 30%, and no evidence of thrombus in the left atrial appendage. Catheterization showed diffusely diseased LAD distally, RCA was dominant and disease free, circumflex had a 60-70% mid lesion. Yesterday on 03/19/2019 patient underwent aortic valve replacement with a #23 mm a villous hypostatic Medtronic aortic valve, mitral valve repair with a #30 mm CarboMedics annular flex band, and single-vessel coronary artery bypass grafting with reverse SVG to the circumflex and ligation of the left atrial appendage with a #35 mm Atriclip. The patient is seen today 03/27/2019 in follow-up on the selective care unit. She is currently sitting up in a chair at the bedside. Awake and alert in no acute distress. She is currently maintaining good O2 saturations in the upper 90s on 2 L/m per nasal cannula. She's been afebrile. Hemodynamically stable. White count 14.5. Hemoglobin 7.6. Creatinine 1.83. AST 107. ALT 319. She is status post 6 units of packed red blood cells. She remains on amiodarone. Anticoagulated with Eliquis. Continued on bronchodilators. She is working well with the incentive spirometer. Needs increased encouragement. Today's chest x- ray was reviewed. No plans for thoracentesis at this point. The patient is seen today 03/28/2019 in follow-up on the selective care unit. Currently sitting up in a chair at the bedside. Awake and alert in no acute distress. Chest x-ray reveals cardiomegaly, possible interstitial edema with pulmonary venous hypertension. Some small basilar effusions/atelectasis. Somewhat more fatigued today as compared to yesterday. Pale. White count 14.8. Hemoglobin 7.4. Creatinine 2.06. AST 553. ALT 627. Objective - Vital Signs Vital signs: Vital Signs Temp 97.8 F 03/28/19 12:09 Pulse 60 03/28/19 12:09 Resp 18 03/28/19 12:09 BP 108/57 03/28/19 12:09 Pulse Ox 95 03/28/19 12:09 Intake & Output 03/27/19 03/28/19 03/28/19 18:59 06:59 18:59 Intake Total 850 120 222 Output Total 300 600 Balance 550 -480 222 Weight 117.3 kg 117.2 kg Intake: Oral 850 120 222 Blood Product 0 Rc As-1 Unit 0 [id number] Output: Urine 300 600 Other: Voiding Method Bedside Commode # Voids 1 1 ABP, PAP, CO, CI - Last Documented Arterial Blood Pressure 102/67 Pulmonary Artery Pressure 38/16 Cardiac Output 4.7 Cardiac Index 2.1 - Exam GENERAL EXAM: Alert, oriented 79-year-old white female patient, on 2 L in no acute distress. HEAD: Normocephalic/atraumatic. EYES: Normal reaction of pupils, equal size. Conjunctiva pink, sclera white. NOSE: Clear with pink turbinates. THROAT: No erythema or exudates. NECK: No masses, no JVD, no thyroid enlargement, no adenopathy. CHEST: No chest wall deformity. Symmetrical expansion. Midsternal incision is clean dry and intact, covered with surgical dressing. LUNGS: Equal air entry with crackles in the right posterior base, diminished CVS: Regular rate and rhythm, normal S1 and S2, no gallops, no murmurs, no rubs ABDOMEN: Soft, nontender. No hepatosplenomegaly, normal bowel sounds, no guarding or rigidity. EXTREMITIES: No clubbing, no edema, no cyanosis, 2+ pulses and upper and lower extremities. MUSCULOSKELETAL: Muscle strength and tone normal. SPINE: No scoliosis or deformity SKIN: No rashes CENTRAL NERVOUS SYSTEM: Awake, and alert, oriented times three. No focal deficits, tone is normal in all 4 extremities. - Labs CBC & Chem 7: 03/28/19 07:00 03/28/19 07:00 Labs: Abnormal Lab Results - Last 24 Hours (Table) 03/13/19 03/27/19 03/27/19 Range/Units 09:00 16:31 20:36 WBC (3.8-10.6) k/uL RBC (3.80-5.40) m/uL Hgb (11.4-16.0) gm/dL Hct (34.0-46.0) % RDW (11.5-15.5) % Sodium (137-145) mmol/L Chloride (98-107) mmol/L Carbon Dioxide (22-30) mmol/L BUN (7-17) mg/dL Creatinine (0.52-1.04) mg/dL Glucose (74-99) mg/dL POC Glucose (mg/dL) 142 H 127 H (75-99) mg/dL Total Bilirubin (0.2-1.3) mg/dL AST (14-36) U/L ALT (9-52) U/L Total Protein (6.3-8.2) g/dL Albumin (3.5-5.0) g/dL Lipase (23-300) U/L Crossmatch See Detail 03/28/19 03/28/19 03/28/19 Range/Units 02:49 06:39 07:00 WBC 14.8 H (3.8-10.6) k/uL RBC 2.45 L (3.80-5.40) m/uL Hgb 7.4 L (11.4-16.0) gm/dL Hct 23.8 L (34.0-46.0) % RDW 18.0 H (11.5-15.5) % Sodium (137-145) mmol/L Chloride (98-107) mmol/L Carbon Dioxide (22-30) mmol/L BUN (7-17) mg/dL Creatinine (0.52-1.04) mg/dL Glucose (74-99) mg/dL POC Glucose (mg/dL) 146 H 124 H (75-99) mg/dL Total Bilirubin (0.2-1.3) mg/dL AST (14-36) U/L ALT (9-52) U/L Total Protein (6.3-8.2) g/dL Albumin (3.5-5.0) g/dL Lipase (23-300) U/L Crossmatch 03/28/19 03/28/19 03/28/19 Range/Units 07:00 07:00 09:09 WBC (3.8-10.6) k/uL RBC (3.80-5.40) m/uL Hgb (11.4-16.0) gm/dL Hct (34.0-46.0) % RDW (11.5-15.5) % Sodium 130 L (137-145) mmol/L Chloride 89 L (98-107) mmol/L Carbon Dioxide 32 H (22-30) mmol/L BUN 73 H (7-17) mg/dL Creatinine 2.06 H (0.52-1.04) mg/dL Glucose 110 H (74-99) mg/dL POC Glucose (mg/dL) (75-99) mg/dL Total Bilirubin 1.5 H (0.2-1.3) mg/dL AST 553 H (14-36) U/L ALT 627 H (9-52) U/L Total Protein 5.1 L (6.3-8.2) g/dL Albumin 3.1 L (3.5-5.0) g/dL Lipase 455 H (23-300) U/L Crossmatch See Detail 03/28/19 Range/Units 11:56 WBC (3.8-10.6) k/uL RBC (3.80-5.40) m/uL Hgb (11.4-16.0) gm/dL Hct (34.0-46.0) % RDW (11.5-15.5) % Sodium (137-145) mmol/L Chloride (98-107) mmol/L Carbon Dioxide (22-30) mmol/L BUN (7-17) mg/dL Creatinine (0.52-1.04) mg/dL Glucose (74-99) mg/dL POC Glucose (mg/dL) 119 H (75-99) mg/dL Total Bilirubin (0.2-1.3) mg/dL AST (14-36) U/L ALT (9-52) U/L Total Protein (6.3-8.2) g/dL Albumin (3.5-5.0) g/dL Lipase (23-300) U/L Crossmatch Assessment and Plan Assessment: Assessment: #1. Severe aortic valve stenosis, and moderate to severe mitral valve regurgitation, and coronary artery disease status post aortic valve replacement with a bioprosthetic valve, mitral valve repair with the annual flex band, and single vessel bypass grafting with reverse SVG off of the aorta to the circumflex artery and left atrial appendage exclusion with the ATriclip, #2. Postoperative bleeding, status post emergent reexploration of the chest and evacuation of clot and control of bleeding #3. Acute blood loss anemia related to the above, status post transfusion with 6 units of RBCs, 5 units of cryoprecipitate, 3 units of rest frozen plasma, and 2 units of platelets #4. Routine ventilator management #5. Secondary pulmonary hypertension #6. Ischemic cardiomyopathy #7. Hypertension #8. Hyperlipidemia #9. Hypothyroidism Plan: The patient was seen and evaluated by Dr. Bruce. Chest x-ray and labs reviewed. We will continue to follow and make further recommendations based on her clinical status. I, the cosigning physician, performed a history & physical examination of the patient. Lungs sounds crackles in the right base, diminished. Maintaining good O2 saturations in the 90s on 2 L/m per nasal cannula. I discussed the assessment and plan of care with my nurse practitioner, Ariella Betancourt. I attest to the above note as dictated by her.
[2019-03-28] MEDS: ACETAMINOPHEN TAB 500 MG TAB PO PRN (14:43)
[2019-03-28 16:58] LABS: Glucose,Whole Blood 117 mg/dL (75-99)
[2019-03-28 17:09] LABS: Anisocytosis Slight; HCT 26.2 % (34.0-46.0); HGB 8.6 gm/dL (11.4-16.0); Hypochromasia Slight; MCH 31.5 pg (25.0-35.0); MCHC 32.9 g/dL (31.0-37.0); MCV 95.8 fL (80.0-100.0); Macrocytosis Slight; Mean Platelet Volume 7.7; Platelet Count 209 k/uL (150-450); Poikilocytosis Slight; RBC 2.73 m/uL (3.80-5.40); RDW 19.3 % (11.5-15.5); WBC 14.6 k/uL (3.8-10.6)
[2019-03-28 17:16] LABS: Albumin 3.3 g/dL (3.5-5.0); Calcium 8.7 mg/dL (8.4-10.2); Potassium 4.3 mmol/L (3.5-5.1); Total Bilirubin 1.5 mg/dL (0.2-1.3); Total Protein 5.2 g/dL (6.3-8.2)
[2019-03-28] MEDS ORDERED: ALBUMIN HUMAN 5% 500 ML in EMPTY BAG 1 BAG IVPB STA (18:28)
[2019-03-28] MEDS: SENNOSIDES-DOCUSATE SODIUM 1 EACH TAB PO SCH (19:57)
[2019-03-28] MEDS: METOPROLOL TARTRATE 12.5 MG TAB PO SCH (19:57)
[2019-03-28 20:20] LABS: Glucose,Whole Blood 113 mg/dL (75-99)
[2019-03-29 02:25] LABS: Glucose,Whole Blood 123 mg/dL (75-99)
[2019-03-29] MEDS: ASCORBIC ACID 500 MG TAB PO SCH ×2 (04:54→16:55)
[2019-03-29] MEDS: PANTOPRAZOLE 40 MG TABLET PO SCH (04:54)
[2019-03-29] MEDS: ACETAMINOPHEN TAB 500 MG TAB PO PRN ×2 (04:54→18:25)
[2019-03-29] MEDS: FERROUS SULFATE 325 MG TAB PO SCH ×2 (04:54→16:55)
[2019-03-29] MEDS: LEVOTHYROXINE 50 MCG TAB PO SCH (04:54)
[2019-03-29] MEDS: METOPROLOL TARTRATE 12.5 MG TAB PO SCH (05:10)
[2019-03-29] MEDS ORDERED: METOPROLOL TARTRATE 50 MG TAB PO STA (05:46)
[2019-03-29] MEDS: INSULIN ASPART (NovoLOG) 100 UNIT/ML VIAL SQ SCH ×4 (06:00→20:55)
[2019-03-29 06:09] LABS: Glucose,Whole Blood 120 mg/dL (75-99)
[2019-03-29 06:13] LABS: Anisocytosis Slight; HCT 24.7 % (34.0-46.0); Hypochromasia Slight; MCH 30.9 pg (25.0-35.0); MCHC 32.6 g/dL (31.0-37.0); Macrocytosis Slight; Mean Platelet Volume 7.4; Platelet Count 197 k/uL (150-450); Poikilocytosis Slight
[2019-03-29 07:08] LABS: Albumin 3.4 g/dL (3.5-5.0); Calcium 8.8 mg/dL (8.4-10.2); Magnesium 2.3 mg/dL (1.6-2.3); Potassium 4.2 mmol/L (3.5-5.1); Total Bilirubin 1.8 mg/dL (0.2-1.3); Total Protein 5.2 g/dL (6.3-8.2)
--- NOTE | 2019-03-29 07:13 | P.PN ---
Subjective Progress Note Date: 03/27/19 This is a 79-year-old female status post CABG X1, aortic valve replacement with bioprosthetic valve, mitral valve repair in a patient with severe aortic valve stenosis, moderate to severe mitral valve regurgitation, CAD, ischemic cardiomyopathy-preop EF 30%, pulmonary hypertension, hypertension, hypothyro idism and multiple other medical issues. Shortly after returning to ICU postop, she developed increased chest tube ouput of 1.3 L over 1-1/2 hours, returned to the OR and required emergent reexploration of the chest with evacuation of clots, control bleeding, placement of IABP. Mediastinal and left pleural chest tube drainage improved. This morning IABP weaned to 1:3 with plans for discontinuing this morning. Continuies on DIprovan, Levophed, Primacor and insulin drips. Cardiac output 7.4, cardiac index 3.4. Maintained on mechanical ventilation with FiO2 40%/+5 of PEEP. Chest x-ray reporting bilateral consolidation and pleural effusion. Telemetry accelerated junctional. 03/21/2019 Extubated yesterday evening.Maintaining O2 sats in the high 90s on 4 L nasal cannula. Incentive spirometer 800 to 1000. Maintained on insulin and Levophed drips. Recent cardiac output/cardiac index 6.1/2.8 .Developed atrial fibrillation last night, received digoxin. Remains in atrial fibrillation, receiving amiodarone bolus with drip pending. Magnesium 2.2, potassium 4.7. Hemoglobin remains stable at 8.5, platelets 62. creatinine 1.26 .Pain controlled. 03/22/2019 maintained on insulin, amiodarone, Levophed drips. Telemetry atrial fibrillation. Amiodarone discontinued secondary to elevated transminases; continues on metoprolol. Arixtra initiated. IS up to 1000. Maintaining O2 sats in the high 90s on 4 L nasal cannula. Chest x-ray reporting mild central vascular congestion, small bilateral pleural effusions and bibasilar acute infiltrates versus atelectasis-no significant change. Maintained on Lasix IV push with 24-hour I&O reflecting a positive fluid balance. 24-hour I&O reflects mediastinal chest tube for 417mls and left pleural chest tube 190mls in the next 24 hours.Hemoglobin 7.8, platelets 57. CO/CI 4.7/2.1. Creatinine 1.37. T-max 100.8, WBC 16.7. Blood sugars controlled. 03/23/2019 All drips have been weaned off. Cardiology discussing removing both pleural and mediastinal chest tubes today .Telemetry controlled atrial fibrillation on beta heriberto. Mild shortness of breath, maintaining O2 sats in the mid 90s on 3 L nasal cannula. Chest x-ray reporting bilateral atelectasis, stable small effusion, fluid overload. IS up to 750. Diuresing well on Lasix IV push with 24-hour I&O reflecting a negative fluid balance. 03/26/19 Sitting up in chair, continues to improve. Diuresing well with edema improving. Bicarb 34, sodium level 130, hemoglobin 7.[address] pending.Incentive spirometer up to almost 1000. Maintaining O2 sats in the mid 90s on room air. LFTs trending down. Controlled proximal atrial fibrillation, on Eliquis. Has not yet walked today, but states did ambulate yesterday in the hallway. Potassium of 3.4 being supplemented. 03/27/2019 sitting up in chair, maintaining O2 sats in the high 90s on 2 L nasal cannula.IS up to 1000. Ambulated in the hallway -Complains of mild shortness of breath, exertional shortness of breath. Chest x-ray reporting basilar effusions, atelectasis. Anticoagulated with Eliquis. Hemoglobin 7.6. Afebrile, WBC 14.5. Creatinine up to 1.83, Lasix discontinued. Sodium 131, fluid restrictions maintained. Developed paroximal atrial fibrillation last night, amiodarone drip initiated. Telemetry currently sinus rhythm with occasional PVC. amiodarone drip converted to oral. Bradycardic,Beta heriberto dose decreased. AST 107, ALT 319, T bili 1.2, statin remains on hold. Blood sugars controlled. Afebrile. Objective - Vital Signs Vital signs: Vital Signs Temp 96.8 F L 03/27/19 15:53 Pulse 55 L 03/27/19 15:53 Resp 18 03/27/19 15:53 BP 95/51 03/27/19 15:53 Pulse Ox 95 03/27/19 15:53 Intake & Output 03/26/19 03/27/19 03/27/19 18:59 06:59 18:59 Intake Total 610 850 Output Total 950 1200 300 Balance -340 -1200 550 Weight 117.3 kg 117.3 kg Intake: Intake, IV Titration 100 Amount Dextrose 5% in Water 100 100 ml @ 618 mls/hr IV .Q10M ONE with Amiodarone 150 mg Rx#:[id number] Oral 510 850 Output: Urine 950 1200 300 Other: Voiding Method Bedside Commode # Voids 2 1 # Bowel Movements 2 ABP, PAP, CO, CI - Last Documented Arterial Blood Pressure 102/67 Pulmonary Artery Pressure 38/16 Cardiac Output 4.7 Cardiac Index 2.1 - Exam PHYSICAL EXAM: VITAL SIGNS: As above GENERAL: Sitting up in recliner, no acute distress, minimal shortness of breath HEENT: Conjunctivae normal. eyes normal. Oral mucosa moist NECK: No JVD. No thyroid enlargement. No LNs. CARDIOVASCULAR: S1, S2 regular. Bradycardic No murmur, rubs or gallops. RESPIRATION: Breath sounds diminished in the bases. No rhonchi, fine crackles bilateral bases, right greater than left, occasional expiratory wheezing. ABDOMEN: Soft, nontender . No guarding. No hepatosplenomegaly. no masses palpable. Positive Bowel sounds. LEGS: Decreasing Generalized edema, positive peripheral pulses, LAUREL hose. PSYCHIATRY: Alert and oriented 3, mood and affect normal NERVOUS SYSTEM: Cranial nerves II through XII grossly intact, moves all 4 extremities, mild diffuse generalized weakness. No focal deficits. Strength and sensation grossly intact. Skin: Generalized mild edema ,no lesions, no rash. No clubbing, no cyanosis. - Labs CBC & Chem 7: 03/29/19 05:54 03/28/19 16:43 Labs: Abnormal Lab Results - Last 24 Hours (Table) 03/26/19 03/27/19 03/27/19 Range/Units 20:59 02:00 06:08 WBC 14.5 H (3.8-10.6) k/uL RBC 2.52 L (3.80-5.40) m/uL Hgb 7.6 L (11.4-16.0) gm/dL Hct 24.4 L (34.0-46.0) % RDW 17.8 H (11.5-15.5) % Sodium (137-145) mmol/L Chloride (98-107) mmol/L Carbon Dioxide (22-30) mmol/L BUN (7-17) mg/dL Creatinine (0.52-1.04) mg/dL Glucose (74-99) mg/dL POC Glucose (mg/dL) 173 H 111 H (75-99) mg/dL AST (14-36) U/L ALT (9-52) U/L Total Protein (6.3-8.2) g/dL Albumin (3.5-5.0) g/dL 03/27/19 03/27/19 03/27/19 Range/Units 06:08 06:18 11:46 WBC (3.8-10.6) k/uL RBC (3.80-5.40) m/uL Hgb (11.4-16.0) gm/dL Hct (34.0-46.0) % RDW (11.5-15.5) % Sodium 131 L (137-145) mmol/L Chloride 90 L (98-107) mmol/L Carbon Dioxide 32 H (22-30) mmol/L BUN 64 H (7-17) mg/dL Creatinine 1.83 H (0.52-1.04) mg/dL Glucose 100 H (74-99) mg/dL POC Glucose (mg/dL) 109 H 111 H (75-99) mg/dL AST 107 H (14-36) U/L ALT 319 H (9-52) U/L Total Protein 5.1 L (6.3-8.2) g/dL Albumin 3.1 L (3.5-5.0) g/dL 03/27/19 Range/Units 16:31 WBC (3.8-10.6) k/uL RBC (3.80-5.40) m/uL Hgb (11.4-16.0) gm/dL Hct (34.0-46.0) % RDW (11.5-15.5) % Sodium (137-145) mmol/L Chloride (98-107) mmol/L Carbon Dioxide (22-30) mmol/L BUN (7-17) mg/dL Creatinine (0.52-1.04) mg/dL Glucose (74-99) mg/dL POC Glucose (mg/dL) 142 H (75-99) mg/dL AST (14-36) U/L ALT (9-52) U/L Total Protein (6.3-8.2) g/dL Albumin (3.5-5.0) g/dL Assessment and Plan Assessment: -Status post CABG 1 with Aortic and Mitral valve repair with left atrial appendage exclusion, secondary to severe aortic valve stenosis and moderate to severe mitral valve regurgitation. Bioprosthetic aortic valve. -Acute postoperative bleeding, unexpected outcome, status post emergent reexploration, evacuation of clot and control of bleeding, placement of IABP. -Acute blood loss anemia secondary to the above, status post transfusions of multiple products; RBCs, cryoprecipitate, FFP, platelets -Postoperative hypotension, secondary to hemorrhagic shock, unexpected outcome, status post pressor dependent -Thrombocytopenia -Postoperative paroximal atrial fibrillation -Secondary pulmonary hypertension -Chronic systolic CHF, Ischemic cardiomyopathy, preop EF 30% -Hyperlipidemia -Hypertension, history of -Hypothyroidism -Right ICA stenosis 50-70% -History of nicotine dependence -Acute on chronic renal failure, stage III. -Hyponatremia -Transaminitis Plan: Continue current medication regime , beta heriberto, aspirin, anticoagulation, monitoring and symptomatic treatment.pain management. Continues on fluid restrictions. Currently on amiodarone, close monitoring of LFTs. Creatinine trending up, Lasix discontinued. Maintain nebulized bronchodilators with aggressive pulmonary toileting with incentive spirometer reinforced. Increase activity as tolerated. Close monitoring of renal function, electrolytes, LFTs with repeat labs ordered for a.m. evaluated by Dr. Finley for inpatient rehab at discharge, recommendations noted .Further recommendations to follow. The impression and plan of care has been dictated as directed. : I performed a history and examination of this patient, discussed the same with the dictator. I agree with the dictator's note ,documented as a scribe. Any additional findings or plans will be noted. Time taken: 35 minutes.
--- NOTE | 2019-03-29 07:54 | P.PN ---
Subjective Progress Note Date: 03/29/19 Principal diagnosis: Severe aortic valve stenosis, moderate to severe mitral valve regurgitation, single-vessel coronary artery disease, and a decreased LV function, chronic systolic heart failure with a preoperative ejection fraction of 30%. History of hypertension, hyperlipidemia, hypothyroid, osteoarthritis, chronic renal failure with baseline creatinine 1.3-1.6, right internal carotid artery stenosis 50-70%, previous tobacco dependance with preoperative FEV1 93% of predicted. POD #10 aortic valve replacement with a #23 mm Avalus bioprosthetic Medtronic aortic valve, mitral valve repair with a #30 mm Carbomedics AnnuloFlex band. Coronary artery bypass grafting 1 vessel with a reverse greater saphenous vein off the aorta to the circumflex coronary artery and a clip ligation of the left atrial appendage with a 35 mm Atriclip. Endoscopic harvesting of the left gr eater saphenous vein. Intraoperative transesophageal echocardiogram. Acute postoperative bleeding, hemorrhagic shock, an unexpected outcome Reactive thrombocytopenia, expected POD #10 Emergent re-exploration of the chest, evacuation of clots and control of bleed. Placement of intra-aortic balloon pump. Post operative atrial fibrillation, unexpected but potential outcome due to multiple comorbidities. Transaminitis, unexpected, thought to be from amiodarone. The patient is currently sitting up in a recliner in no acute distress. She does complain of post surgical chest pain and continuing shortness of breath. Her BUN and creatinine were continuing to trend upwards, liver enzymes had been trending down but were elevated again yesterday, amiodarone was stopped, lopressor was adjusted. She received 1 unit PRBCs yesterday along with a bolus of albumin. Hemaglobin improved, kidney function and liver function are slightly improved this morning. She went back into controlled Afib this morning with some ectopy, she complained of increased shortness of breath with the Afib. Additional lopressor was given. Blood pressure has improved. Weight is down 2 kg, unable to determine fluid balance as urine output has not been documented accurately. Chest X-ray appears slightly improved. Objective - Vital Signs Vital signs: Vital Signs Temp 98.7 F 03/29/19 03:03 Pulse 89 03/29/19 03:03 Resp 19 03/29/19 03:03 BP 127/56 03/29/19 03:03 Pulse Ox 95 03/29/19 03:03 Intake & Output 03/28/19 03/29/19 03/29/19 18:59 06:59 18:59 Intake Total 1382 250 Balance 1382 250 Weight 115.5 kg Intake: Intake, IV Titration 250 Amount Albumin Human 5% 500 ml 250 In Empty Bag 1 bag @ 250 mls/hr IVPB ONCE STA Rx#: [id number] Oral 1072 Blood Product 310 Rc As-1 Unit 310 [id number] Other: Voiding Method Bedside Commode # Voids 1 1 ABP, PAP, CO, CI - Last Documented Arterial Blood Pressure 102/67 Pulmonary Artery Pressure 38/16 Cardiac Output 4.7 Cardiac Index 2.1 - Constitutional General appearance: Present: cooperative, no acute distress, obese - Respiratory Details: Lungs sounds diminished bilaterally with coarse breath sounds in the left base. Respirations even, non-labored at rest but slightly labored with activity, currently on 2 LPM NC. Only able to achieve 500 mL on incentive spirometry. Strong cough with occasional yellow sputum per patient. - Cardiovascular Details: S1/S2 present. Irregular rate and rhythm, controlled afib with ectopy on telemetry. Sternum stable. Palpable peripheral pulses bilaterally. Bilateral lower extremity edema present. No calf pain or tenderness noted. Heart hugger in place with patient demonstrating appropriate use. Antiembolism stockings, SCDs present. - Gastrointestinal Gastrointestinal Comment(s): Abdomen soft, nontender, nondistended. Active bowel sounds present 4 quadrants. Tolerating diet. Positive bowel movement. - Genitourinary Genitourinary Comment(s): Continues to void clear yellow urine. - Integumentary Integumentary Comment(s): Skin is warm and dry with evidence of good perfusion. Anterior chest incision well approximated and covered with dry intact dressing. Left lower extremity EVH site well approximated. - Neurologic Neurologic: Present: CNII-XII intact - Musculoskeletal Musculoskeletal: Present: generalized weakness, strength equal bilaterally - Psychiatric Psychiatric: Present: A&O x's 3, appropriate affect, intact judgment & insight - Allied health notes Allied health notes reviewed: nursing - Labs CBC & Chem 7: 03/29/19 05:54 03/29/19 05:54 Labs: Abnormal Lab Results - Last 24 Hours (Table) 03/13/19 03/28/19 03/28/19 Range/Units 09:00 07:00 07:00 WBC 14.8 H (3.8-10.6) k/uL RBC 2.45 L (3.80-5.40) m/uL Hgb 7.4 L (11.4-16.0) gm/dL Hct 23.8 L (34.0-46.0) % RDW 18.0 H (11.5-15.5) % Sodium 130 L (137-145) mmol/L Chloride 89 L (98-107) mmol/L Carbon Dioxide 32 H (22-30) mmol/L BUN 73 H (7-17) mg/dL Creatinine 2.06 H (0.52-1.04) mg/dL Glucose 110 H (74-99) mg/dL POC Glucose (mg/dL) (75-99) mg/dL Total Bilirubin 1.5 H (0.2-1.3) mg/dL AST 553 H (14-36) U/L ALT 627 H (9-52) U/L Alkaline Phosphatase (38-126) U/L Total Protein 5.1 L (6.3-8.2) g/dL Albumin 3.1 L (3.5-5.0) g/dL Lipase (23-300) U/L Crossmatch See Detail 03/28/19 03/28/19 03/28/19 Range/Units 07:00 09:09 11:56 WBC (3.8-10.6) k/uL RBC (3.80-5.40) m/uL Hgb (11.4-16.0) gm/dL Hct (34.0-46.0) % RDW (11.5-15.5) % Sodium (137-145) mmol/L Chloride (98-107) mmol/L Carbon Dioxide (22-30) mmol/L BUN (7-17) mg/dL Creatinine (0.52-1.04) mg/dL Glucose (74-99) mg/dL POC Glucose (mg/dL) 119 H (75-99) mg/dL Total Bilirubin (0.2-1.3) mg/dL AST (14-36) U/L ALT (9-52) U/L Alkaline Phosphatase (38-126) U/L Total Protein (6.3-8.2) g/dL Albumin (3.5-5.0) g/dL Lipase 455 H (23-300) U/L Crossmatch See Detail 03/28/19 03/28/19 03/28/19 Range/Units 16:43 16:43 16:57 WBC 14.6 H (3.8-10.6) k/uL RBC 2.73 L (3.80-5.40) m/uL Hgb 8.6 L (11.4-16.0) gm/dL Hct 26.2 L (34.0-46.0) % RDW 19.3 H (11.5-15.5) % Sodium 130 L (137-145) mmol/L Chloride 89 L (98-107) mmol/L Carbon Dioxide 31 H (22-30) mmol/L BUN 78 H (7-17) mg/dL Creatinine 1.96 H (0.52-1.04) mg/dL Glucose 108 H (74-99) mg/dL POC Glucose (mg/dL) 117 H (75-99) mg/dL Total Bilirubin 1.5 H (0.2-1.3) mg/dL AST 562 H (14-36) U/L ALT 656 H (9-52) U/L Alkaline Phosphatase 147 H (38-126) U/L Total Protein 5.2 L (6.3-8.2) g/dL Albumin 3.3 L (3.5-5.0) g/dL Lipase (23-300) U/L Crossmatch 03/28/19 03/29/19 03/29/19 Range/Units 20:18 02:22 05:54 WBC 14.0 H (3.8-10.6) k/uL RBC 2.60 L (3.80-5.40) m/uL Hgb 8.0 L (11.4-16.0) gm/dL Hct 24.7 L (34.0-46.0) % RDW 18.0 H (11.5-15.5) % Sodium (137-145) mmol/L Chloride (98-107) mmol/L Carbon Dioxide (22-30) mmol/L BUN (7-17) mg/dL Creatinine (0.52-1.04) mg/dL Glucose (74-99) mg/dL POC Glucose (mg/dL) 113 H 123 H (75-99) mg/dL Total Bilirubin (0.2-1.3) mg/dL AST (14-36) U/L ALT (9-52) U/L Alkaline Phosphatase (38-126) U/L Total Protein (6.3-8.2) g/dL Albumin (3.5-5.0) g/dL Lipase (23-300) U/L Crossmatch 03/29/19 03/29/19 Range/Units 05:54 06:08 WBC (3.8-10.6) k/uL RBC (3.80-5.40) m/uL Hgb (11.4-16.0) gm/dL Hct (34.0-46.0) % RDW (11.5-15.5) % Sodium 129 L (137-145) mmol/L Chloride 89 L (98-107) mmol/L Carbon Dioxide 31 H (22-30) mmol/L BUN 75 H (7-17) mg/dL Creatinine 1.84 H (0.52-1.04) mg/dL Glucose 106 H (74-99) mg/dL POC Glucose (mg/dL) 120 H (75-99) mg/dL Total Bilirubin 1.8 H (0.2-1.3) mg/dL AST 296 H (14-36) U/L ALT 526 H (9-52) U/L Alkaline Phosphatase 135 H (38-126) U/L Total Protein 5.2 L (6.3-8.2) g/dL Albumin 3.4 L (3.5-5.0) g/dL Lipase (23-300) U/L Crossmatch - Imaging and Cardiology Chest x-ray: image reviewed Assessment and Plan Assessment: 1. Severe aortic valve stenosis, status post bioprosthetic aortic valve replacement 2. Moderate to severe mitral valve regurgitation, status post mitral valve repa ir 3. Single-vessel coronary artery disease, status post 1 vessel CABG 4. Decreased LV function, chronic systolic heart failure, ischemic cardiomyopathy with preoperative EF 30%, EF improved to 40-45% post surgery 5. History of hypertension 6. Hyperlipidemia 7. Hypothyroid 8. Osteoarthritis 9. Right internal carotid artery stenosis 50-69% 10. Acute on chronic renal failure, baseline creatinine 1.3-1.6 11. Previous tobacco dependence with preoperative FEV1 93% of predicted 12. Acute postoperative bleeding, hemorrhagic shock, status post emergent re- exploration of the chest with evacuation of clots and control of the bleed 13. Thrombocytopenia, reactive 14. Postoperative atrial fibrillation, status post clip ligation of left atrial appendage 15. Transaminitis, likely related to amiodarone Plan: 1. Continue low-dose aspirin, beta heriberto therapy. Will increase beta heriberto therapy as tolerated. Continue to hold statin secondary to transaminitis. 2. Discontinue amiodarone. Continue Eliquis for anticoagulation. 3. Patient would benefit from ARLNE inhibitor for afterload reduction, however contraindicated at this time secondary to acute kidney injury. 4. Continue fluid restrictions, daily weights, strict accurate I and O's. Discussed with nursing. 5. Encourage incentive spirometry 10 times every hour while awake. Patient needs aggressive pulmonary hygiene. 6. Increase activity, ambulate as tolerated. PT/OT/cardiac rehab following. 7. Will monitor daily labs and x-rays. Electrolytes replacement per protocol. 8. GI/DVT prophylaxis. 9. Insulin management per primary care service. 10. Pain control current medication regimen. 11. Continue Iron, vitamin C. 12. Discharge planning in progress. Anticipate discharge to inpatient rehab, insurance authorization has been obtained. Will discharge to inpatient rehab once patient is medically stable. 13. More recommendations to follow as patient progresses. Time with Patient: Greater than 30
[2019-03-29] MEDS: MUPIROCIN 2% OINT 22 GM TUBE NASAL SCH ×2 (07:58→20:56)
[2019-03-29] MEDS: ASPIRIN 81 MG PO SCH (07:59)
[2019-03-29] MEDS: APIXABAN 2.5 MG TABLET PO SCH ×2 (07:59→20:55)
[2019-03-29] MEDS: CHOLECALCIFEROL 1,000 UNIT TAB PO SCH (07:59)
[2019-03-29] MEDS: IPRATROPIUM-ALBUTEROL 3 ML NEB INHALATION SCH ×4 (08:59→20:12)
--- NOTE | 2019-03-29 09:38 | P.PN ---
Subjective Progress Note Date: 03/28/19 This is a 79-year-old female status post CABG X1, aortic valve replacement with bioprosthetic valve, mitral valve repair in a patient with severe aortic valve stenosis, moderate to severe mitral valve regurgitation, CAD, ischemic cardiomyopathy-preop EF 30%, pulmonary hypertension, hypertension, hypothyro idism and multiple other medical issues. Shortly after returning to ICU postop, she developed increased chest tube ouput of 1.3 L over 1-1/2 hours, returned to the OR and required emergent reexploration of the chest with evacuation of clots, control bleeding, placement of IABP. Mediastinal and left pleural chest tube drainage improved. This morning IABP weaned to 1:3 with plans for discontinuing this morning. Continuies on DIprovan, Levophed, Primacor and insulin drips. Cardiac output 7.4, cardiac index 3.4. Maintained on mechanical ventilation with FiO2 40%/+5 of PEEP. Chest x-ray reporting bilateral consolidation and pleural effusion. Telemetry accelerated junctional. 03/21/2019 Extubated yesterday evening.Maintaining O2 sats in the high 90s on 4 L nasal cannula. Incentive spirometer 800 to 1000. Maintained on insulin and Levophed drips. Recent cardiac output/cardiac index 6.1/2.8 .Developed atrial fibrillation last night, received digoxin. Remains in atrial fibrillation, receiving amiodarone bolus with drip pending. Magnesium 2.2, potassium 4.7. Hemoglobin remains stable at 8.5, platelets 62. creatinine 1.26 .Pain controlled. 03/22/2019 maintained on insulin, amiodarone, Levophed drips. Telemetry atrial fibrillation. Amiodarone discontinued secondary to elevated transminases; continues on metoprolol. Arixtra initiated. IS up to 1000. Maintaining O2 sats in the high 90s on 4 L nasal cannula. Chest x-ray reporting mild central vascular congestion, small bilateral pleural effusions and bibasilar acute infiltrates versus atelectasis-no significant change. Maintained on Lasix IV push with 24-hour I&O reflecting a positive fluid balance. 24-hour I&O reflects mediastinal chest tube for 417mls and left pleural chest tube 190mls in the next 24 hours.Hemoglobin 7.8, platelets 57. CO/CI 4.7/2.1. Creatinine 1.37. T-max 100.8, WBC 16.7. Blood sugars controlled. 03/23/2019 All drips have been weaned off. Cardiology discussing removing both pleural and mediastinal chest tubes today .Telemetry controlled atrial fibrillation on beta heriberto. Mild shortness of breath, maintaining O2 sats in the mid 90s on 3 L nasal cannula. Chest x-ray reporting bilateral atelectasis, stable small effusion, fluid overload. IS up to 750. Diuresing well on Lasix IV push with 24-hour I&O reflecting a negative fluid balance. 03/26/19 Sitting up in chair, continues to improve. Diuresing well with edema improving. Bicarb 34, sodium level 130, hemoglobin 7.[address] pending.Incentive spirometer up to almost 1000. Maintaining O2 sats in the mid 90s on room air. LFTs trending down. Controlled proximal atrial fibrillation, on Eliquis. Has not yet walked today, but states did ambulate yesterday in the hallway. Potassium of 3.4 being supplemented. 03/27/2019 sitting up in chair, maintaining O2 sats in the high 90s on 2 L nasal cannula.IS up to 1000. Ambulated in the hallway -Complains of mild shortness of breath, exertional shortness of breath. Chest x-ray reporting basilar effusions, atelectasis. Anticoagulated with Eliquis. Hemoglobin 7.6. Afebrile, WBC 14.5. Creatinine up to 1.83, Lasix discontinued. Sodium 131, fluid restrictions maintained. Developed paroximal atrial fibrillation last night, amiodarone drip initiated. Telemetry currently sinus rhythm with occasional PVC. amiodarone drip converted to oral. Bradycardic,Beta heriberto dose decreased. AST 107, ALT 319, T bili 1.2, statin remains on hold. Blood sugars controlled. Afebrile. 03/28/2019 telemetry sinus rhythm with occasional accelerated junctional rhythm, bradycardic at times with heart rates in the 50s. Borderline hypotension with MAP in the low 70s. Maintaining O2 sats low 90s to 95% on room air .Sitting up in chair, and does not feel well, complains of increased shortness of breath, fatigue. Pale appearance. Hgb 7.4, scheduled for transfusion of packed RBCs amiodarone discontinued as LFTs remain elevated, mildly improved with T bili up to 1.5. 24-hour I&O reflecting a negative fluid balance. Chest x-ray reporting cardiomegaly, possible interstitial edema, pulmonary venous hypertension, bibasilar effusions, atelectasis, prominent aorta with no evidence of pneumothorax. Incentive spirometer up to 750. Objective - Vital Signs Vital signs: Vital Signs Temp 98.3 F 03/28/19 14:33 Pulse 62 03/28/19 14:33 Resp 16 03/28/19 14:33 BP 102/58 03/28/19 14:33 Pulse Ox 94 L 03/28/19 14:33 Intake & Output 03/27/19 03/28/19 03/28/19 18:59 06:59 18:59 Intake Total 850 120 532 Output Total 300 600 Balance 550 -480 532 Weight 117.3 kg 117.2 kg Intake: Oral 850 120 222 Blood Product 310 Rc As-1 Unit 310 [id number] Output: Urine 300 600 Other: Voiding Method Bedside Commode # Voids 1 1 ABP, PAP, CO, CI - Last Documented Arterial Blood Pressure 102/67 Pulmonary Artery Pressure 38/16 Cardiac Output 4.7 Cardiac Index 2.1 - Exam PHYSICAL EXAM: VITAL SIGNS: As above GENERAL: Sitting up in recliner, no acute distress, mild increased shortness of breath, fatigued, pale HEENT: Conjunctivae normal. eyes normal. Oral mucosa moist NECK: No JVD. No thyroid enlargement. No LNs. CARDIOVASCULAR: S1, S2 regular. Bradycardic No murmur, rubs or gallops. RESPIRATION: Breath sounds diminished in the bases. No rhonchi, right greater than left expiratory wheezing. ABDOMEN: Soft, nontender . No guarding. No hepatosplenomegaly. no masses palpable. Positive Bowel sounds. LEGS: Decreasing Generalized edema, positive peripheral pulses, LAUREL hose. PSYCHIATRY: Alert and oriented 3, mood and affect normal NERVOUS SYSTEM: Cranial nerves II through XII grossly intact, moves all 4 extremities, mild diffuse generalized weakness. No focal deficits. Strength and sensation grossly intact. Skin: Warm, dry without diaphoresis .Generalized mild edema ,no lesions, no rash. No clubbing, no cyanosis. - Labs CBC & Chem 7: 03/29/19 05:54 03/29/19 05:54 Labs: Abnormal Lab Results - Last 24 Hours (Table) 03/13/19 03/27/19 03/27/19 Range/Units 09:00 16:31 20:36 WBC (3.8-10.6) k/uL RBC (3.80-5.40) m/uL Hgb (11.4-16.0) gm/dL Hct (34.0-46.0) % RDW (11.5-15.5) % Sodium (137-145) mmol/L Chloride (98-107) mmol/L Carbon Dioxide (22-30) mmol/L BUN (7-17) mg/dL Creatinine (0.52-1.04) mg/dL Glucose (74-99) mg/dL POC Glucose (mg/dL) 142 H 127 H (75-99) mg/dL Total Bilirubin (0.2-1.3) mg/dL AST (14-36) U/L ALT (9-52) U/L Total Protein (6.3-8.2) g/dL Albumin (3.5-5.0) g/dL Lipase (23-300) U/L Crossmatch See Detail 03/28/19 03/28/19 03/28/19 Range/Units 02:49 06:39 07:00 WBC 14.8 H (3.8-10.6) k/uL RBC 2.45 L (3.80-5.40) m/uL Hgb 7.4 L (11.4-16.0) gm/dL Hct 23.8 L (34.0-46.0) % RDW 18.0 H (11.5-15.5) % Sodium (137-145) mmol/L Chloride (98-107) mmol/L Carbon Dioxide (22-30) mmol/L BUN (7-17) mg/dL Creatinine (0.52-1.04) mg/dL Glucose (74-99) mg/dL POC Glucose (mg/dL) 146 H 124 H (75-99) mg/dL Total Bilirubin (0.2-1.3) mg/dL AST (14-36) U/L ALT (9-52) U/L Total Protein (6.3-8.2) g/dL Albumin (3.5-5.0) g/dL Lipase (23-300) U/L Crossmatch 03/28/19 03/28/19 03/28/19 Range/Units 07:00 07:00 09:09 WBC (3.8-10.6) k/uL RBC (3.80-5.40) m/uL Hgb (11.4-16.0) gm/dL Hct (34.0-46.0) % RDW (11.5-15.5) % Sodium 130 L (137-145) mmol/L Chloride 89 L (98-107) mmol/L Carbon Dioxide 32 H (22-30) mmol/L BUN 73 H (7-17) mg/dL Creatinine 2.06 H (0.52-1.04) mg/dL Glucose 110 H (74-99) mg/dL POC Glucose (mg/dL) (75-99) mg/dL Total Bilirubin 1.5 H (0.2-1.3) mg/dL AST 553 H (14-36) U/L ALT 627 H (9-52) U/L Total Protein 5.1 L (6.3-8.2) g/dL Albumin 3.1 L (3.5-5.0) g/dL Lipase 455 H (23-300) U/L Crossmatch See Detail 03/28/19 Range/Units 11:56 WBC (3.8-10.6) k/uL RBC (3.80-5.40) m/uL Hgb (11.4-16.0) gm/dL Hct (34.0-46.0) % RDW (11.5-15.5) % Sodium (137-145) mmol/L Chloride (98-107) mmol/L Carbon Dioxide (22-30) mmol/L BUN (7-17) mg/dL Creatinine (0.52-1.04) mg/dL Glucose (74-99) mg/dL POC Glucose (mg/dL) 119 H (75-99) mg/dL Total Bilirubin (0.2-1.3) mg/dL AST (14-36) U/L ALT (9-52) U/L Total Protein (6.3-8.2) g/dL Albumin (3.5-5.0) g/dL Lipase (23-300) U/L Crossmatch Assessment and Plan Assessment: -Status post CABG 1 with Aortic and Mitral valve repair with left atrial appendage exclusion, secondary to severe aortic valve stenosis and moderate to severe mitral valve regurgitation. Bioprosthetic aortic valve. -Acute postoperative bleeding, unexpected outcome, status post emergent reexploration, evacuation of clot and control of bleeding, status post placement of IABP. -Acute blood loss anemia secondary to the above, status post transfusions of multiple products; RBCs, cryoprecipitate, FFP, platelets -Postoperative hypotension, secondary to hemorrhagic shock, unexpected outcome, status post pressor dependent -Thrombocytopenia -Postoperative paroximal atrial fibrillation -Secondary pulmonary hypertension -Chronic systolic CHF, Ischemic cardiomyopathy, preop EF 30%, post surgery EF 40-45%. -Hyperlipidemia -Hypertension, history of -Hypothyroidism -Right ICA stenosis 50-70% -History of nicotine dependence -Acute on chronic renal failure, stage III. -Hyponatremia -Transaminitis Plan: Continue current medication regime , beta heriberto, aspirin, anticoagulation, monitoring and symptomatic treatment. Packed RBCs ordered.Maintain fluid restrictions. Amiodarone has been discontinued,close monitoring of LFTs. Continue nebulized bronchodilators. Aggressive pulmonary toileting with incentive spirometer reinforced. PT/OT. Close monitoring of renal function, electrolytes, LFTs with repeat labs ordered for a.m. Further recommendations to follow. The impression and plan of care has been dictated as directed. : I performed a history and examination of this patient, discussed the same with the dictator. I agree with the dictator's note ,documented as a scribe. Any additional findings or plans will be noted. Time taken: 35 minutes.
--- NOTE | 2019-03-29 10:00 | P.PN ---
Subjective Progress Note Date: 03/29/19 This is a 79-year-old female status post CABG X1, aortic valve replacement with bioprosthetic valve, mitral valve repair in a patient with severe aortic valve stenosis, moderate to severe mitral valve regurgitation, CAD, ischemic cardiomyopathy-preop EF 30%, pulmonary hypertension, hypertension, hypothyro idism and multiple other medical issues. Shortly after returning to ICU postop, she developed increased chest tube ouput of 1.3 L over 1-1/2 hours, returned to the OR and required emergent reexploration of the chest with evacuation of clots, control bleeding, placement of IABP. Mediastinal and left pleural chest tube drainage improved. This morning IABP weaned to 1:3 with plans for discontinuing this morning. Continuies on DIprovan, Levophed, Primacor and insulin drips. Cardiac output 7.4, cardiac index 3.4. Maintained on mechanical ventilation with FiO2 40%/+5 of PEEP. Chest x-ray reporting bilateral consolidation and pleural effusion. Telemetry accelerated junctional. 03/21/2019 Extubated yesterday evening.Maintaining O2 sats in the high 90s on 4 L nasal cannula. Incentive spirometer 800 to 1000. Maintained on insulin and Levophed drips. Recent cardiac output/cardiac index 6.1/2.8 .Developed atrial fibrillation last night, received digoxin. Remains in atrial fibrillation, receiving amiodarone bolus with drip pending. Magnesium 2.2, potassium 4.7. Hemoglobin remains stable at 8.5, platelets 62. creatinine 1.26 .Pain controlled. 03/22/2019 maintained on insulin, amiodarone, Levophed drips. Telemetry atrial fibrillation. Amiodarone discontinued secondary to elevated transminases; continues on metoprolol. Arixtra initiated. IS up to 1000. Maintaining O2 sats in the high 90s on 4 L nasal cannula. Chest x-ray reporting mild central vascular congestion, small bilateral pleural effusions and bibasilar acute infiltrates versus atelectasis-no significant change. Maintained on Lasix IV push with 24-hour I&O reflecting a positive fluid balance. 24-hour I&O reflects mediastinal chest tube for 417mls and left pleural chest tube 190mls in the next 24 hours.Hemoglobin 7.8, platelets 57. CO/CI 4.7/2.1. Creatinine 1.37. T-max 100.8, WBC 16.7. Blood sugars controlled. 03/23/2019 All drips have been weaned off. Cardiology discussing removing both pleural and mediastinal chest tubes today .Telemetry controlled atrial fibrillation on beta heriberto. Mild shortness of breath, maintaining O2 sats in the mid 90s on 3 L nasal cannula. Chest x-ray reporting bilateral atelectasis, stable small effusion, fluid overload. IS up to 750. Diuresing well on Lasix IV push with 24-hour I&O reflecting a negative fluid balance. 03/26/19 Sitting up in chair, continues to improve. Diuresing well with edema improving. Bicarb 34, sodium level 130, hemoglobin 7.[address] pending.Incentive spirometer up to almost 1000. Maintaining O2 sats in the mid 90s on room air. LFTs trending down. Controlled proximal atrial fibrillation, on Eliquis. Has not yet walked today, but states did ambulate yesterday in the hallway. Potassium of 3.4 being supplemented. 03/27/2019 sitting up in chair, maintaining O2 sats in the high 90s on 2 L nasal cannula.IS up to 1000. Ambulated in the hallway -Complains of mild shortness of breath, exertional shortness of breath. Chest x-ray reporting basilar effusions, atelectasis. Anticoagulated with Eliquis. Hemoglobin 7.6. Afebrile, WBC 14.5. Creatinine up to 1.83, Lasix discontinued. Sodium 131, fluid restrictions maintained. Developed paroximal atrial fibrillation last night, amiodarone drip initiated. Telemetry currently sinus rhythm with occasional PVC. amiodarone drip converted to oral. Bradycardic,Beta heriberto dose decreased. AST 107, ALT 319, T bili 1.2, statin remains on hold. Blood sugars controlled. Afebrile. 03/28/2019 telemetry sinus rhythm with occasional accelerated junctional rhythm, bradycardic at times with heart rates in the 50s. Borderline hypotension with MAP in the low 70s. Maintaining O2 sats low 90s to 95% on room air .Sitting up in chair, and does not feel well, complains of increased shortness of breath, fatigue. Pale appearance. Hgb 7.4, scheduled for transfusion of packed RBCs amiodarone discontinued as LFTs remain elevated, mildly improved with T bili up to 1.5. 24-hour I&O reflecting a negative fluid balance. Chest x-ray reporting cardiomegaly, possible interstitial edema, pulmonary venous hypertension, bibasilar effusions, atelectasis, prominent aorta with no evidence of pneumothorax. Incentive spirometer up to 750. 03/29/2019 Reports less fatigue this morning, shortness of breath, positive surgical site chest pain. yesterday she received 1 unit of packed RBCs, albumin with current hemoglobin at 8.0. Creatinine 1.84. Controlled atrial fibrillati on earlier this morning with reported multiple nonsustained runs of V. tach. Received additional Lopressor. Magnesium 2.30, potassium 4.2, bicarb 31. Maintaining O2 sats in the mid 90s on room air, 99% on 2 L nasal cannula. Chest x-ray pending. IS decreased to 500.Systolic blood pressure currently in the 90s. Telemetry currently reported patient converted to sinus bradycardia, heart rate in the 50s. LFTs continue to trend down slowly, T bili up to 1.8. Objective - Vital Signs Vital signs: Vital Signs Temp 97.5 F L 03/29/19 07:55 Pulse 56 L 03/29/19 09:12 Resp 24 03/29/19 07:55 BP 90/66 03/29/19 07:55 Pulse Ox 99 03/29/19 07:55 Intake & Output 03/28/19 03/29/19 03/29/19 18:59 06:59 18:59 Intake Total 1382 250 Balance 1382 250 Weight 115.5 kg Intake: Intake, IV Titration 250 Amount Albumin Human 5% 500 ml 250 In Empty Bag 1 bag @ 250 mls/hr IVPB ONCE STA Rx#: [id number] Oral 1072 Blood Product 310 Rc As-1 Unit 310 [id number] Other: Voiding Method Bedside Commode Bedside Commode # Voids 1 1 ABP, PAP, CO, CI - Last Documented Arterial Blood Pressure 102/67 Pulmonary Artery Pressure 38/16 Cardiac Output 4.7 Cardiac Index 2.1 - Exam PHYSICAL EXAM: VITAL SIGNS: As above GENERAL: Sitting up in chair, no acute distress, fatigued HEENT: Conjunctivae normal. eyes normal. Oral mucosa moist NECK: No JVD. No thyroid enlargement. No LNs. CARDIOVASCULAR: Mild shortness of breath, S1, S2 regular. Bradycardic No murmur, rubs or gallops. RESPIRATION: Breath sounds diminished in the bases. No rhonchi, right greater than left expiratory wheezing. ABDOMEN: Soft, nontender . No guarding. no masses palpable. Positive Bowel sounds. LEGS: Decreasing Generalized edema, positive peripheral pulses, LAUREL hose. PSYCHIATRY: Alert and oriented 3, mood and affect normal NERVOUS SYSTEM: Cranial nerves II through XII grossly intact, moves all 4 extremities, mild diffuse generalized weakness. No focal deficits. Strength and sensation grossly intact. Skin: Warm, dry without diaphoresis .Generalized mild edema ,no lesions, no rash. No clubbing, no cyanosis. - Labs CBC & Chem 7: 03/29/19 05:54 03/29/19 05:54 Labs: Abnormal Lab Results - Last 24 Hours (Table) 03/13/19 03/28/19 03/28/19 Range/Units 09:00 09:09 11:56 WBC (3.8-10.6) k/uL RBC (3.80-5.40) m/uL Hgb (11.4-16.0) gm/dL Hct (34.0-46.0) % RDW (11.5-15.5) % Sodium (137-145) mmol/L Chloride (98-107) mmol/L Carbon Dioxide (22-30) mmol/L BUN (7-17) mg/dL Creatinine (0.52-1.04) mg/dL Glucose (74-99) mg/dL POC Glucose (mg/dL) 119 H (75-99) mg/dL Total Bilirubin (0.2-1.3) mg/dL AST (14-36) U/L ALT (9-52) U/L Alkaline Phosphatase (38-126) U/L Total Protein (6.3-8.2) g/dL Albumin (3.5-5.0) g/dL Crossmatch See Detail See Detail 03/28/19 03/28/19 03/28/19 Range/Units 16:43 16:43 16:57 WBC 14.6 H (3.8-10.6) k/uL RBC 2.73 L (3.80-5.40) m/uL Hgb 8.6 L (11.4-16.0) gm/dL Hct 26.2 L (34.0-46.0) % RDW 19.3 H (11.5-15.5) % Sodium 130 L (137-145) mmol/L Chloride 89 L (98-107) mmol/L Carbon Dioxide 31 H (22-30) mmol/L BUN 78 H (7-17) mg/dL Creatinine 1.96 H (0.52-1.04) mg/dL Glucose 108 H (74-99) mg/dL POC Glucose (mg/dL) 117 H (75-99) mg/dL Total Bilirubin 1.5 H (0.2-1.3) mg/dL AST 562 H (14-36) U/L ALT 656 H (9-52) U/L Alkaline Phosphatase 147 H (38-126) U/L Total Protein 5.2 L (6.3-8.2) g/dL Albumin 3.3 L (3.5-5.0) g/dL Crossmatch 03/28/19 03/29/19 03/29/19 Range/Units 20:18 02:22 05:54 WBC 14.0 H (3.8-10.6) k/uL RBC 2.60 L (3.80-5.40) m/uL Hgb 8.0 L (11.4-16.0) gm/dL Hct 24.7 L (34.0-46.0) % RDW 18.0 H (11.5-15.5) % Sodium (137-145) mmol/L Chloride (98-107) mmol/L Carbon Dioxide (22-30) mmol/L BUN (7-17) mg/dL Creatinine (0.52-1.04) mg/dL Glucose (74-99) mg/dL POC Glucose (mg/dL) 113 H 123 H (75-99) mg/dL Total Bilirubin (0.2-1.3) mg/dL AST (14-36) U/L ALT (9-52) U/L Alkaline Phosphatase (38-126) U/L Total Protein (6.3-8.2) g/dL Albumin (3.5-5.0) g/dL Crossmatch 03/29/19 03/29/19 Range/Units 05:54 06:08 WBC (3.8-10.6) k/uL RBC (3.80-5.40) m/uL Hgb (11.4-16.0) gm/dL Hct (34.0-46.0) % RDW (11.5-15.5) % Sodium 129 L (137-145) mmol/L Chloride 89 L (98-107) mmol/L Carbon Dioxide 31 H (22-30) mmol/L BUN 75 H (7-17) mg/dL Creatinine 1.84 H (0.52-1.04) mg/dL Glucose 106 H (74-99) mg/dL POC Glucose (mg/dL) 120 H (75-99) mg/dL Total Bilirubin 1.8 H (0.2-1.3) mg/dL AST 296 H (14-36) U/L ALT 526 H (9-52) U/L Alkaline Phosphatase 135 H (38-126) U/L Total Protein 5.2 L (6.3-8.2) g/dL Albumin 3.4 L (3.5-5.0) g/dL Crossmatch Assessment and Plan Assessment: -Status post CABG 1 with Aortic and Mitral valve repair with left atrial appendage exclusion, secondary to severe aortic valve stenosis and moderate to severe mitral valve regurgitation. Bioprosthetic aortic valve. -Acute postoperative bleeding, unexpected outcome, status post emergent reexploration, evacuation of clot and control of bleeding, status post placement of IABP. -Acute blood loss anemia secondary to the above, status post transfusions of multiple products; RBCs, cryoprecipitate, FFP, platelets -Postoperative hypotension, secondary to hemorrhagic shock, unexpected outcome, status post pressor dependent -Thrombocytopenia -Postoperative paroximal atrial fibrillation -Secondary pulmonary hypertension -Chronic systolic CHF, Ischemic cardiomyopathy, preop EF 30%, post surgery EF 40-45%. -Hyperlipidemia -Hypertension, history of -Hypothyroidism -Right ICA stenosis 50-70% -History of nicotine dependence -Acute on chronic renal failure, stage III. -Hyponatremia -Transaminitis -Nonsustained runs of V. tach Plan: Continue current medication regime , beta heriberto, aspirin, anticoagulation, monitoring and symptomatic treatment. Pain management. fluid restrictions.close monitoring of LFTs. Continue nebulized bronchodilators. IS worse today -Aggressive pulmonary toileting with incentive spirometer reinforced. PT/OT. Close monitoring of renal function, electrolytes, LFTs with repeat labs ordered for a.m. prognosis guarded given multiple complex medical issues. Further recommendations to follow. The impression and plan of care has been dictated as directed. : I performed a history and examination of this patient, discussed the same with the dictator. I agree with the dictator's note ,documented as a scribe. Any additional findings or plans will be noted. Time taken: 35 minutes.
--- NOTE | 2019-03-29 11:44 | P.PN ---
Subjective Progress Note Date: 03/29/19 This is a 79-year-old femalewith history of aortic valve replacement and mitral valves repair and also single-vessel bypass surgery. She was seen and examined this morning, up ambulating with cardiac rehab and overall doing quite well. Blood pressure 96/60 with a heart rate in the 90s, afebrile. 92% on room air. White blood cell count 13.3, hemoglobin 7.6, platelet count 147. Sodium 1:30, potassium 3.4, BUN 55 and creatinine 1.4. AST 168, ALT 386. 03/27/2019 Patient seen and examined this morning, feeling much stronger overall today, ambulated in the hallway today with assistance. Blood pressure 100/50 with a heart rate in the 60s. Temperature 96.5. White blood cell count 14.5, hemoglob in 7.6, platelet count 194. Sodium 131, potassium 4.0, BUN 64 and creatinine 1.8. AST 107, ALT 319, alk phos 111. 03/28/2019 patient was seen and examined this morning, she states she does not feel well overall today. Extremely weak, and generally just states she does not feel right.her white blood cell count today is 14.8 hemoglobin 7.4, platelet count 204. Sodium 1:30, potassium 4.5, BUN 73, creatinine 2.0. Total bilirubin 1.5 AST 553 ALT 627 amylase 87 lipase 455. Statins are on hold as well as amiodarone. I did speak with a meat the cardiothoracic [facility] [employer], who stated that the patient will receive a packed red blood cells today with additional Lasix. Her current Lasix dosing has been placed on hold. Chest x-ray does show bibasilar effusions with associated atelectasis. 03/29/2019 Patient seen and examined this morning, he continues to feel weak today. Her breathing is overall stable. Blood pressure 90/60 with a heart rate in the 80s. White blood cell count 14.0, hemoglobin 8.0, platelet count 197, sodium 129, potassium 4.2, BUN 75 creatinine 1.8, magnesium 1.8, AST 296, ALT 526, alk phos 135. Objective - Vital Signs Vital signs: Vital Signs Temp 97.5 F L 03/29/19 07:55 Pulse 56 L 03/29/19 09:12 Resp 24 03/29/19 07:55 BP 90/66 03/29/19 07:55 Pulse Ox 99 03/29/19 07:55 Intake & Output 03/28/19 03/29/19 03/29/19 18:59 06:59 18:59 Intake Total 1382 250 Balance 1382 250 Weight 115.5 kg Intake: Intake, IV Titration 250 Amount Albumin Human 5% 500 ml 250 In Empty Bag 1 bag @ 250 mls/hr IVPB ONCE STA Rx#: [id number] Oral 1072 Blood Product 310 Rc As-1 Unit 310 [id number] Other: Voiding Method Bedside Commode Bedside Commode # Voids 1 1 ABP, PAP, CO, CI - Last Documented Arterial Blood Pressure 102/67 Pulmonary Artery Pressure 38/16 Cardiac Output 4.7 Cardiac Index 2.1 - Exam GENERAL EXAM: Patient is alert and oriented and doesn't appear to be in any acute distress HEENT: Normocephalic. Normal reaction of pupils, equal size, normal range of extraocular motion. No erythema or exudates in the throat. NECK: No masses, no nuchal rigidity. CHEST: No chest wall deformity. LUNGS: diminished air exchange, bilaterally with crackles heard at the bases HEART: S1 and S2 normal with no audible mumurs or gallops. irregular rhythm ABDOMEN: No hepatosplenomegaly, normal bowel sounds, no guarding or rigidity. SKIN: No rashes CENTRAL NERVOUS SYSTEM: No focal deficits. EXTREMITIES: [No cyanosis, clubbing or edema.]axilla defaults - Labs CBC & Chem 7: 03/29/19 05:54 03/29/19 05:54 Labs: Abnormal Lab Results - Last 24 Hours (Table) 03/28/19 03/28/19 03/28/19 Range/Units 09:09 11:56 16:43 WBC 14.6 H (3.8-10.6) k/uL RBC 2.73 L (3.80-5.40) m/uL Hgb 8.6 L (11.4-16.0) gm/dL Hct 26.2 L (34.0-46.0) % RDW 19.3 H (11.5-15.5) % Sodium (137-145) mmol/L Chloride (98-107) mmol/L Carbon Dioxide (22-30) mmol/L BUN (7-17) mg/dL Creatinine (0.52-1.04) mg/dL Glucose (74-99) mg/dL POC Glucose (mg/dL) 119 H (75-99) mg/dL Total Bilirubin (0.2-1.3) mg/dL AST (14-36) U/L ALT (9-52) U/L Alkaline Phosphatase (38-126) U/L Total Protein (6.3-8.2) g/dL Albumin (3.5-5.0) g/dL Crossmatch See Detail 03/28/19 03/28/19 03/28/19 Range/Units 16:43 16:57 20:18 WBC (3.8-10.6) k/uL RBC (3.80-5.40) m/uL Hgb (11.4-16.0) gm/dL Hct (34.0-46.0) % RDW (11.5-15.5) % Sodium 130 L (137-145) mmol/L Chloride 89 L (98-107) mmol/L Carbon Dioxide 31 H (22-30) mmol/L BUN 78 H (7-17) mg/dL Creatinine 1.96 H (0.52-1.04) mg/dL Glucose 108 H (74-99) mg/dL POC Glucose (mg/dL) 117 H 113 H (75-99) mg/dL Total Bilirubin 1.5 H (0.2-1.3) mg/dL AST 562 H (14-36) U/L ALT 656 H (9-52) U/L Alkaline Phosphatase 147 H (38-126) U/L Total Protein 5.2 L (6.3-8.2) g/dL Albumin 3.3 L (3.5-5.0) g/dL Crossmatch 03/29/19 03/29/19 03/29/19 Range/Units 02:22 05:54 05:54 WBC 14.0 H (3.8-10.6) k/uL RBC 2.60 L (3.80-5.40) m/uL Hgb 8.0 L (11.4-16.0) gm/dL Hct 24.7 L (34.0-46.0) % RDW 18.0 H (11.5-15.5) % Sodium 129 L (137-145) mmol/L Chloride 89 L (98-107) mmol/L Carbon Dioxide 31 H (22-30) mmol/L BUN 75 H (7-17) mg/dL Creatinine 1.84 H (0.52-1.04) mg/dL Glucose 106 H (74-99) mg/dL POC Glucose (mg/dL) 123 H (75-99) mg/dL Total Bilirubin 1.8 H (0.2-1.3) mg/dL AST 296 H (14-36) U/L ALT 526 H (9-52) U/L Alkaline Phosphatase 135 H (38-126) U/L Total Protein 5.2 L (6.3-8.2) g/dL Albumin 3.4 L (3.5-5.0) g/dL Crossmatch 03/29/19 Range/Units 06:08 WBC (3.8-10.6) k/uL RBC (3.80-5.40) m/uL Hgb (11.4-16.0) gm/dL Hct (34.0-46.0) % RDW (11.5-15.5) % Sodium (137-145) mmol/L Chloride (98-107) mmol/L Carbon Dioxide (22-30) mmol/L BUN (7-17) mg/dL Creatinine (0.52-1.04) mg/dL Glucose (74-99) mg/dL POC Glucose (mg/dL) 120 H (75-99) mg/dL Total Bilirubin (0.2-1.3) mg/dL AST (14-36) U/L ALT (9-52) U/L Alkaline Phosphatase (38-126) U/L Total Protein (6.3-8.2) g/dL Albumin (3.5-5.0) g/dL Crossmatch Assessment and Plan Plan: Assessment and Plan 1. Aortic valve stenosis, with severe aortic valve regurgitation, status post aortic valve replacement and Moderate to severe mitral valve regurgitation, status post mitral valve repair 2 Single-vessel coronary artery disease, status post coronary artery bypass grafting surgery 1 vessel 3 Decreased LV function with preoperative ejection fraction of 30%, improved following surgery 4 shortness of breath with development of a right-sided pleural effusion 5. Hypertension 6. Hyperlipidemia 7. Hypothyroid 8. Non-critical carotid stenosis with a 50-70% right ICA stenosis 9. New-onset atrial fibrillation rate controlled and currently the patient on Eliquis 10. Postoperative Hypotension, resolved 11. Chronic renal failure, baseline creatinine 1.3-1.6 12. Thrombocytopenia, reactive HIT panel negative Plan From cardiology's perspective, we'll continue current medications. DNP note has been reviewed, I agree with a documented findings and plan of care. Patient was seen and examined.
[2019-03-29 12:05] LABS: Glucose,Whole Blood 139 mg/dL (75-99)
--- NOTE | 2019-03-29 13:00 | XR ---
EXAMINATION TYPE: XR chest 1V portable DATE OF EXAM: 03/29/2019 COMPARISON: Prior chest x-ray 03/28/2019 HISTORY: Status post coronary artery bypass graft TECHNIQUE: Single frontal view of the chest is obtained. FINDINGS: Patient is post median sternotomy and the heart remains enlarged. No evident pneumothorax. Left hemidiaphragm remains partially obscured. There are overlying cardiac leads. Bibasilar patchy i ncreased density noted, right hemidiaphragm is elevated. IMPRESSION: Findings are similar to prior exam. Small basilar effusions and associated atelectasis, cardiomegaly. Correlate to exclude pneumonia.
--- NOTE | 2019-03-29 15:26 | P.PN ---
Subjective Progress Note Date: 03/29/19 This is a 79-year-old white female patient of Dr. Mati Vale, with a known history of aortic stenosis and regurgitation, hypertension, hyperlipidemia, hypothyroidism, moderate noncritical carotid artery stenosis, who was found to have significant decrease in LV function based on her echocardiogram in December 2018 with systolic/diastolic dysfunction. Recent underwent transesophageal echocardiogram on 02/05/2019 showing sclerotic and calcific aortic valve with severe aortic stenosis with area of the aortic valve calculated in the range of 1-1.1. There was moderate degree of mitral regurgitation, severely impaired left ventricle systolic function with estimated ejection fraction of 30%, and no evidence of thrombus in the left atrial appendage. Catheterization showed diffusely diseased LAD distally, RCA was dominant and disease free, circumflex had a 60-70% mid lesion. Yesterday on 03/19/2019 patient underwent aortic valve replacement with a #23 mm a villous hypostatic Medtronic aortic valve, mitral valve repair with a #30 mm CarboMedics annular flex band, and single-vessel coronary artery bypass grafting with reverse SVG to the circumflex and ligation of the left atrial appendage with a #35 mm Atriclip. The patient is seen today 03/27/2019 in follow-up on the selective care unit. She is currently sitting up in a chair at the bedside. Awake and alert in no acute distress. She is currently maintaining good O2 saturations in the upper 90s on 2 L/m per nasal cannula. She's been afebrile. Hemodynamically stable. White count 14.5. Hemoglobin 7.6. Creatinine 1.83. AST 107. ALT 319. She is status post 6 units of packed red blood cells. She remains on amiodarone. Anticoagulated with Eliquis. Continued on bronchodilators. She is working well with the incentive spirometer. Needs increased encouragement. Today's chest x- ray was reviewed. No plans for thoracentesis at this point. The patient is seen today 03/28/2019 in follow-up on the selective care unit. Currently sitting up in a chair at the bedside. Awake and alert in no acute distress. Chest x-ray reveals cardiomegaly, possible interstitial edema with pulmonary venous hypertension. Some small basilar effusions/atelectasis. Somewhat more fatigued today as compared to yesterday. Pale. White count 14.8. Hemoglobin 7.4. Creatinine 2.06. AST 553. ALT 627. On 03/29/2019 the patient is looking slightly better. Breathing easier. Pulling approximately 1100 on the incentive spirometer. No cough or sputum production. We'll doing percussion and vibration to the right lower chest area. Remains in sinus rhythm. Off amiodarone. LFTs are improving. Creatinine is at 1.84 which is lower than yesterday. Sodium level is at 129. No new complaints otherwise for now. No chest pain. No palpitation. Hemoglobin stable at 8.0 Objective - Vital Signs Vital signs: Vital Signs Temp 97.5 F L 03/29/19 07:55 Pulse 72 03/29/19 12:49 Resp 24 03/29/19 11:20 BP 90/66 03/29/19 07:55 Pulse Ox 99 03/29/19 07:55 Intake & Output 03/28/19 03/29/19 03/29/19 18:59 06:59 18:59 Intake Total 1382 250 100 Output Total 550 Balance 1382 250 -450 Weight 115.5 kg Intake: Intake, IV Titration 250 Amount Albumin Human 5% 500 ml 250 In Empty Bag 1 bag @ 250 mls/hr IVPB ONCE STA Rx#: [id number] Oral 1072 100 Blood Product 310 Rc As-1 Unit 310 [id number] Output: Urine 550 Other: Voiding Method Bedside Commode Bedside Commode # Voids 1 1 1 ABP, PAP, CO, CI - Last Documented Arterial Blood Pressure 102/67 Pulmonary Artery Pressure 38/16 Cardiac Output 4.7 Cardiac Index 2.1 - Exam GENERAL EXAM: Alert, oriented 79-year-old white female patient, on 2 L in no acute distress. HEAD: Normocephalic/atraumatic. EYES: Normal reaction of pupils, equal size. Conjunctiva pink, sclera white. NOSE: Clear with pink turbinates. THROAT: No erythema or exudates. NECK: No masses, no JVD, no thyroid enlargement, no adenopathy. CHEST: No chest wall deformity. Symmetrical expansion. Midsternal incision is clean dry and intact, covered with surgical dressing. LUNGS: Equal air entry with crackles in the right posterior base, diminished CVS: Regular rate and rhythm, normal S1 and S2, no gallops, no murmurs, no rubs ABDOMEN: Soft, nontender. No hepatosplenomegaly, normal bowel sounds, no guarding or rigidity. EXTREMITIES: No clubbing, no edema, no cyanosis, 2+ pulses and upper and lower extremities. MUSCULOSKELETAL: Muscle strength and tone normal. SPINE: No scoliosis or deformity SKIN: No rashes CENTRAL NERVOUS SYSTEM: Awake, and alert, oriented times three. No focal deficits, tone is normal in all 4 extremities. - Labs CBC & Chem 7: 03/29/19 05:54 03/29/19 05:54 Labs: Abnormal Lab Results - Last 24 Hours (Table) 03/28/19 03/28/19 03/28/19 Range/Units 16:43 16:43 16:57 WBC 14.6 H (3.8-10.6) k/uL RBC 2.73 L (3.80-5.40) m/uL Hgb 8.6 L (11.4-16.0) gm/dL Hct 26.2 L (34.0-46.0) % RDW 19.3 H (11.5-15.5) % Sodium 130 L (137-145) mmol/L Chloride 89 L (98-107) mmol/L Carbon Dioxide 31 H (22-30) mmol/L BUN 78 H (7-17) mg/dL Creatinine 1.96 H (0.52-1.04) mg/dL Glucose 108 H (74-99) mg/dL POC Glucose (mg/dL) 117 H (75-99) mg/dL Total Bilirubin 1.5 H (0.2-1.3) mg/dL AST 562 H (14-36) U/L ALT 656 H (9-52) U/L Alkaline Phosphatase 147 H (38-126) U/L Total Protein 5.2 L (6.3-8.2) g/dL Albumin 3.3 L (3.5-5.0) g/dL 03/28/19 03/29/19 03/29/19 Range/Units 20:18 02:22 05:54 WBC 14.0 H (3.8-10.6) k/uL RBC 2.60 L (3.80-5.40) m/uL Hgb 8.0 L (11.4-16.0) gm/dL Hct 24.7 L (34.0-46.0) % RDW 18.0 H (11.5-15.5) % Sodium (137-145) mmol/L Chloride (98-107) mmol/L Carbon Dioxide (22-30) mmol/L BUN (7-17) mg/dL Creatinine (0.52-1.04) mg/dL Glucose (74-99) mg/dL POC Glucose (mg/dL) 113 H 123 H (75-99) mg/dL Total Bilirubin (0.2-1.3) mg/dL AST (14-36) U/L ALT (9-52) U/L Alkaline Phosphatase (38-126) U/L Total Protein (6.3-8.2) g/dL Albumin (3.5-5.0) g/dL 03/29/19 03/29/19 03/29/19 Range/Units 05:54 06:08 12:03 WBC (3.8-10.6) k/uL RBC (3.80-5.40) m/uL Hgb (11.4-16.0) gm/dL Hct (34.0-46.0) % RDW (11.5-15.5) % Sodium 129 L (137-145) mmol/L Chloride 89 L (98-107) mmol/L Carbon Dioxide 31 H (22-30) mmol/L BUN 75 H (7-17) mg/dL Creatinine 1.84 H (0.52-1.04) mg/dL Glucose 106 H (74-99) mg/dL POC Glucose (mg/dL) 120 H 139 H (75-99) mg/dL Total Bilirubin 1.8 H (0.2-1.3) mg/dL AST 296 H (14-36) U/L ALT 526 H (9-52) U/L Alkaline Phosphatase 135 H (38-126) U/L Total Protein 5.2 L (6.3-8.2) g/dL Albumin 3.4 L (3.5-5.0) g/dL Assessment and Plan Plan: 1. Aortic valve stenosis, with severe aortic valve regurgitation, status post aortic valve replacement and Moderate to severe mitral valve regurgitation, status post mitral valve repair. The patient also underwent left atrial appendage occlusion 2 Single-vessel coronary artery disease, status post coronary artery bypass grafting surgery 1 vessel 3 Decreased LV function with preoperative ejection fraction of 30%, improved following surgery 4 shortness of breath was multifactorial and this was associated with a new onset atrial fibrillation, right lower lobe atelectasis and small right-sided pleural effusion. In addition the patient was quite anemic. 5. Hypertension 6. Hyperlipidemia 7. Hypothyroid 8. Non-critical carotid stenosis with a 50-70% right ICA stenosis 9. New-onset atrial fibrillation rate controlled and currently the patient on Eliquis 10. Postoperative Hypotension, resolved 11. Chronic renal failure, baseline creatinine 1.3-1.6 12. Thrombocytopenia, reactive HIT panel negative, and the plated count is improving 13 abnormal LFTs related to amiodarone, improving 14 new onset A. fib, back to sinus at this point in time Plan Monitor LFTs. I asked. Chest PT. Cardiac management. Monitor sodium level up it monitor renal function. Aggressive physical therapy. We will follow
[2019-03-29 16:52] LABS: Glucose,Whole Blood 154 mg/dL (75-99)
[2019-03-29 20:44] LABS: Glucose,Whole Blood 156 mg/dL (75-99)
[2019-03-29] MEDS: SENNOSIDES-DOCUSATE SODIUM 1 EACH TAB PO SCH (20:55)
[2019-03-29] MEDS ORDERED: METOPROLOL TARTRATE 25 MG TAB PO SCH (21:00)
[2019-03-30 06:12] LABS: Glucose,Whole Blood 140 mg/dL (75-99)
[2019-03-30] MEDS: ASCORBIC ACID 500 MG TAB PO SCH ×2 (06:20→17:52)
[2019-03-30] MEDS: INSULIN ASPART (NovoLOG) 100 UNIT/ML VIAL SQ SCH ×4 (06:20→21:27)
[2019-03-30] MEDS: LEVOTHYROXINE 50 MCG TAB PO SCH (06:20)
[2019-03-30] MEDS: PANTOPRAZOLE 40 MG TABLET PO SCH (06:20)
[2019-03-30] MEDS: FERROUS SULFATE 325 MG TAB PO SCH ×2 (06:20→17:52)
[2019-03-30] MEDS: IPRATROPIUM-ALBUTEROL 3 ML NEB INHALATION SCH ×4 (07:50→20:51)
[2019-03-30 07:57] LABS: Albumin 3.3 g/dL (3.5-5.0); Calcium 8.9 mg/dL (8.4-10.2); Potassium 4.1 mmol/L (3.5-5.1); Total Bilirubin 1.5 mg/dL (0.2-1.3); Total Protein 5.2 g/dL (6.3-8.2)
[2019-03-30] MEDS: METOPROLOL TARTRATE 50 MG TAB PO SCH ×2 (07:57→20:09)
[2019-03-30] MEDS: APIXABAN 2.5 MG TABLET PO SCH (07:57)
[2019-03-30] MEDS: CHOLECALCIFEROL 1,000 UNIT TAB PO SCH (07:57)
[2019-03-30] MEDS: ASPIRIN 81 MG PO SCH (07:57)
[2019-03-30 07:58] LABS: Anisocytosis Slight; HCT 26.9 % (34.0-46.0); HGB 8.5 gm/dL (11.4-16.0); Hypochromasia Moderate; MCH 30.9 pg (25.0-35.0); MCHC 31.5 g/dL (31.0-37.0); Macrocytosis Slight; Mean Platelet Volume 7.6; Platelet Count 209 k/uL (150-450); Poikilocytosis Slight; RBC 2.74 m/uL (3.80-5.40); RDW 19.8 % (11.5-15.5); WBC 16.8 k/uL (3.8-10.6)
--- NOTE | 2019-03-30 08:27 | XR ---
EXAMINATION TYPE: XR chest 2V DATE OF EXAM: 03/30/2019 COMPARISON: Prior chest x-ray 03/29/2019 HISTORY: Post cardiac surgery TECHNIQUE: Frontal and lateral views of the chest are obtained. FINDINGS: Patient is post median sternotomy and atrial appendage clipping placement. Bibasilar incre ased density persists, patient is rotated. Aorta appears prominently, mediastinum is widened as on pr ior exam. Heart remains enlarged. There is no pneumothorax. IMPRESSION: Findings are similar to prior exam. Postop changes. Probable basilar atelectasis and ass ociated small effusions. Stable cardiomegaly, aortic aneurysm.
--- NOTE | 2019-03-30 09:14 | P.PN ---
Subjective Progress Note Date: 03/30/19 Principal diagnosis: Severe aortic valve stenosis, moderate to severe mitral valve regurgitation, single-vessel coronary artery disease, and a decreased LV function, chronic systolic heart failure with a preoperative ejection fraction of 30%. History of hypertension, hyperlipidemia, hypothyroid, osteoarthritis, chronic renal failure with baseline creatinine 1.3-1.6, right internal carotid artery stenosis 50-70%, previous tobacco dependance with preoperative FEV1 93% of predicted. POD #11 aortic valve replacement with a #23 mm Avalus bioprosthetic Medtronic aortic valve, mitral valve repair with a #30 mm Carbomedics AnnuloFlex band. Coronary artery bypass grafting 1 vessel with a reverse greater saphenous vein off the aorta to the circumflex coronary artery and a clip ligation of the left atrial appendage with a 35 mm Atriclip. Endoscopic harvesting of the left gr eater saphenous vein. Intraoperative transesophageal echocardiogram. Acute postoperative bleeding, an unexpected outcome. Reactive thrombocytopenia, expected, resolved. POD #11 Emergent re-exploration of the chest, evacuation of clots and control of bleed. Placement of intra-aortic balloon pump. Post operative paroxysmal atrial fibrillation, unexpected. Transaminitis, unexpected. The patient is sitting up to the bedside chair in her room on the cardiac stepdown unit. She is in no acute distress. Currently denies any complaints of pain although is complaining of episodes of shortness of breath exacerbated by activity. She does have some scattered wheezes throughout this morning and has just had an updraft treatment and chest physiotherapy completed. Her liver enzymes remained elevated this morning with her AST 156 and her ALT 459 which are trending down from yesterday. She remains in atrial fibrillation on her remote telemetry with heart rate 94. Her amiodarone has been on hold due to her elevated liver enzymes. Chest x-ray completed this morning shows bibasilar atelectasis and bilateral small pleural effusions. Her oxygen saturation are 97% on room air. She is achieving 750 mL on her incentive spirometry with much encouragement. Objective - Vital Signs Vital signs: Vital Signs Temp 97.6 F 03/29/19 20:00 Pulse 68 03/30/19 08:00 Resp 22 03/30/19 04:00 BP 146/67 03/30/19 04:00 Pulse Ox 99 03/30/19 04:00 Intake & Output 07/03/30/19 03/30/19 18:59 06:59 18:59 Intake Total 1350 600 Output Total 1000 200 Balance 350 600 -200 Weight 118.3 kg Intake: Oral 1350 600 Output: Urine 1000 200 Other: Voiding Method Bedside Commode Toilet Bedside Commode # Voids 1 1 # Bowel Movements 1 ABP, PAP, CO, CI - Last Documented Arterial Blood Pressure 102/67 Pulmonary Artery Pressure 38/16 Cardiac Output 4.7 Cardiac Index 2.1 - Constitutional General appearance: Present: cooperative, morbidly obese, no acute distress - Respiratory Details: Lung sounds with scattered expiratory wheezes, diminished bilateral bases. No crackles or rhonchi. Respirations are symmetrical and nonlabored. Oxygen satur ation are 97% on 2 L nasal cannula. Achieving 750 mL on her incentive spirometry with much encouragement. - Cardiovascular Details: Irregular rhythm and controlled rate consistent with atrial fibrillation. S1 and S2 present, negative for S3, gallop or murmur. Sternum is stable. Remote telemetry showing atrial fibrillation heart rate 94. +1 edema to her bilateral lower extremities. Heart hugger is in place and she is demonstrating appropriate use. Knee-high LAUREL hose and sequential compression devices in place from her bilateral lower extremities. - Gastrointestinal Gastrointestinal Comment(s): Abdomen soft, nontender and nondistended. Active bowel sounds present in all 4 abdominal quadrants. No guarding or rigidity. No organomegaly. Tolerating oral intake. - Genitourinary Genitourinary Comment(s): Voiding clear deidra urine. - Integumentary Integumentary Comment(s): Skin is warm and dry. No clubbing or cyanosis is present. Midline sternal incision is clean, dry and approximated. No drainage or redness is present. Gauze dressing is clean, dry and intact. Left lower extremity EVH site is clean, dry and approximated. No drainage or redness is present. - Neurologic Neurologic: Present: CNII-XII intact - Musculoskeletal Musculoskeletal: Present: gait normal, generalized weakness, strength equal bilaterally - Psychiatric Psychiatric: Present: A&O x's 3, appropriate affect, intact judgment & insight - Allied health notes Allied health notes reviewed: nursing - Labs CBC & Chem 7: 03/30/19 06:04 03/30/19 06:04 Labs: Abnormal Lab Results - Last 24 Hours (Table) 03/29/19 03/29/19 03/29/19 Range/Units 12:03 16:50 20:43 WBC (3.8-10.6) k/uL RBC (3.80-5.40) m/uL Hgb (11.4-16.0) gm/dL Hct (34.0-46.0) % RDW (11.5-15.5) % Sodium (137-145) mmol/L Chloride (98-107) mmol/L Carbon Dioxide (22-30) mmol/L BUN (7-17) mg/dL Creatinine (0.52-1.04) mg/dL Glucose (74-99) mg/dL POC Glucose (mg/dL) 139 H 154 H 156 H (75-99) mg/dL Total Bilirubin (0.2-1.3) mg/dL AST (14-36) U/L ALT (9-52) U/L Alkaline Phosphatase (38-126) U/L Total Protein (6.3-8.2) g/dL Albumin (3.5-5.0) g/dL 03/30/19 03/30/19 03/30/19 Range/Units 06:04 06:04 06:11 WBC 16.8 H (3.8-10.6) k/uL RBC 2.74 L (3.80-5.40) m/uL Hgb 8.5 L (11.4-16.0) gm/dL Hct 26.9 L (34.0-46.0) % RDW 19.8 H (11.5-15.5) % Sodium 132 L (137-145) mmol/L Chloride 90 L (98-107) mmol/L Carbon Dioxide 34 H (22-30) mmol/L BUN 73 H (7-17) mg/dL Creatinine 1.89 H (0.52-1.04) mg/dL Glucose 115 H (74-99) mg/dL POC Glucose (mg/dL) 140 H (75-99) mg/dL Total Bilirubin 1.5 H (0.2-1.3) mg/dL AST 156 H (14-36) U/L ALT 459 H (9-52) U/L Alkaline Phosphatase 154 H (38-126) U/L Total Protein 5.2 L (6.3-8.2) g/dL Albumin 3.3 L (3.5-5.0) g/dL - Imaging and Cardiology Chest x-ray: report reviewed, image reviewed Assessment and Plan Assessment: 1. Aortic valve stenosis, with severe aortic valve regurgitation, status post aortic valve replacement 2. Moderate to severe mitral valve regurgitation, status post mitral valve repair 3. Single-vessel coronary artery disease, status post coronary artery bypass grafting surgery 1 vessel 4. Decreased LV function with preoperative ejection fraction of 30% 5. Hypertension 6. Hyperlipidemia 7. Hypothyroid 8. Non-critical carotid stenosis with a 50-70% right ICA stenosis 9. Acute postoperative bleeding, an unexpected outcome 10. Postoperative Hypotension, resolved 11. Chronic renal failure, baseline creatinine 1.3-1.6 12. Thrombocytopenia, reactive HIT panel negative 13. Postoperative paroxysmal atrial fibrillation, status post clip ligation of the left atrial appendage 14. Transaminitis 15. Osteoarthritis 16. Postoperative hyponatremia, unexpected Plan: 1. Continue to maximize medical therapy with aspirin and beta heriberto. We will increase her metoprolol tartrate 50 mg by mouth twice a day 2. Encourage use of her incentive spirometry every hour while awake. 3. Continue to hold statin and amiodarone. We will restart her statin once her liver enzymes have normalized. 4. Bronchodilators management per pulmonary medicine. Symbicort added for her expiratory wheezing. 5. Monitor daily labs and chest x-rays. Replace electrolytes per protocol. 6. GI and DVT prophylaxis. 7. Pain control current medication regimen. No Toradol due to her elevated BUN and creatinine. 8. Continue 1500 mL in 24 hour. fluid restriction for her sodium level of 132. 9. Continue Iron, vitamin C. hemoglobin remains 7.6 this a.m. 10. Continue daily weights. Weight today is 118 kg. 11. Insulin management per primary care service. 12. Increase activity as tolerated. Physical therapy/occupational therapy/ca rdiac rehab following. 13. Continue on Eliquis 2.5 mg by mouth twice a day. 14. Discharge planning in progress. Anticipate discharge to inpatient rehab. We will discharge her to inpatient rehab once she is medically stable. 15. More recommendations to follow based on patient's clinical course. Time with Patient: Greater than 30
[2019-03-30] MEDS ORDERED: FUROSEMIDE 10 MG/ML 4 ML VIAL IV STA (10:28)
[2019-03-30] MEDS ORDERED: ACETAMINOPHEN TAB 500 MG TAB PO PRN (10:37)
[2019-03-30 11:58] LABS: Glucose,Whole Blood 171 mg/dL (75-99)
--- NOTE | 2019-03-30 12:28 | ECHOF ---
Referral Reason:assess LV function. MEASUREMENTS -------- HEIGHT: 177.8 cm WEIGHT: 113.4 kg BP: IVSd: 1.1 cm (0.6 - 1.1) LVIDd: 5.7 cm (3.9 - 5.3) LVPWd: 1.1 cm (0.6 - 1.1) IVSs: 1.4 cm LVIDs: 4.6 cm LVPWs: 1.4 cm LA Diam: 5.0 cm (2.7 - 3.8) LAESV Index (A-L): 31.38 ml/m MV E Pedro Luis: 1.63 m/s MV DecT: 283 ms MV A Pedro Luis: 0.40 m/s MV E/A Ratio: 4.03 AV maxP.80 mmHg AV meanP.49 mmHg RAP: 8.00 mmHg RVSP: 45.99 mmHg FINDINGS -------- Atrial fibrillation. This was a technically adequate study. Limited Study The left ventricle is mildly dilated. Overall left ventricular systolic function is mild-moderately impaired with, an EF between 40 - 45 %. The right ventricle is normal in size and function. LA is midly dilated 29-33ml/m2. The right atrium is mildly enlarged , and the RA measures {RA}. The aortic valve area by continuity equation is {JOANNA}. The maximum velocity across the aortic valve is 2.50m/s. The maximum pressure gradient across the aortic valve is 25.80mmHg. Peak/mean gradie nt across the Aortic Valve is 25.80mmHg / 12.49mmHg. There is trace to mild mitral regurgitation. The peak and mean MV gradients are 11.02mmHg 3.55mmHg as measured by doppler. Mitral Valve Area by PHT 3.4cm The peak and mean MV gradients are 11.02mm Hg 3.55mmHg as measured by doppler , with a MVA of 3.4cm (by PHT) There is a moderate, generalized pericardial effusion present. More so overlying LV and LA compromis ing LA filling. CONCLUSIONS -------- 1. Atrial fibrillation. 2. This was a technically adequate study. 3. Limited Study 4. The left ventricle is mildly dilated. 5. Overall left ventricular systolic function is mild-moderately impaired with, an EF between 40 - 45 %. 6. The right ventricle is normal in size and function. 7. LA is midly dilated 29-33ml/m2. 8. , and the RA measures {RA}. 9. The aortic valve area by continuity equation is {JOANNA}. 10. The maximum velocity across the aortic valve is 2.50m/s. 11. The maximum pressure gradient across the aortic valve is 25.80mmHg. 12. Peak/mean gradient across the Aortic Valve is 25.80mmHg / 12.49mmHg. 13. There is trace to mild mitral regurgitation. 14. The peak and mean MV gradients are 11.02mmHg 3.55mmHg as measured by doppler. 15. Mitral Valve Stenosis MVA By PHT 3.4cm with a Peak/Mean PG 11.02mmHg 3.55mmHg 16. , with a MVA of 3.4cm (by PHT) WAITER/WAITRESS HEAD: Sanna Tai RDCS
--- NOTE | 2019-03-30 12:30 | PN ---
PROGRESS NOTE Viviana underwent aortic valve replacement and mitral valve repair making very slow recovery. Continues to be short of breath, fatigued and tired. Chest x-ray does not reveal any pleural effusions or congestive heart failure. A repeat echocardiogram today shows improvement in her RV systolic pressure, but there is large amount of pericardial effusion that is new compared to an echocardiogram done little more than a week ago. LV function is diminished. Ejection fraction is around 40% to 45% , but that was noted on the previous echo. She is currently on Eliquis, aspirin, insulin, Lopressor. PHYSICAL EXAMINATION: On exam, comfortable at rest. Heart rate is 90 beats per minute. Blood pressure is 110/67. Respiratory rate is 18. Chest exam reveals diminished air entry at the bases. Heart exam reveals first and second heart sounds. Systolic murmur at the left lower sternal border. Abdomen is soft. Examination of the extremities reveals trace edema. LABS: Labs show a hemoglobin of 8.5. Potassium is 4.1, BUN is 73, creatinine is 1.89. ASSESSMENT: Status post aortic valve replacement, status post mitral valve repair, large pericardial effusion without any tamponade. Renal failure, primarily prerenal. I will ask nephrology to evaluate the patient. I will ask cardiothoracic surgery to see if she needs a pericardial window. Otherwise, she will continue with current medications. MMODL / IJN: [id number] /
[2019-03-30 14:54] LABS: Appearance,Urine Clear (Clear); Bilirubin,Urine Negative (Negative); Blood,Urine Negative (Negative); Color,Urine Yellow; Glucose,Urine (UA) Negative (Negative); Ketones,Urine Negative (Negative); Leukocyte Esterase,Urine Negative (Negative); Nitrite,Urine Negative (Negative); Protein,Urine Trace (Negative); Specific Gravity,Urine 1.015 (1.001-1.035)
--- NOTE | 2019-03-30 15:28 | P.PN ---
Subjective Progress Note Date: 03/30/19 This is a 79-year-old white female patient of Dr. Mati Vale, with a known history of aortic stenosis and regurgitation, hypertension, hyperlipidemia, hypothyroidism, moderate noncritical carotid artery stenosis, who was found to have significant decrease in LV function based on her echocardiogram in December 2018 with systolic/diastolic dysfunction. Recent underwent transesophageal echocardiogram on 02/05/2019 showing sclerotic and calcific aortic valve with severe aortic stenosis with area of the aortic valve calculated in the range of 1-1.1. There was moderate degree of mitral regurgitation, severely impaired left ventricle systolic function with estimated ejection fraction of 30%, and no evidence of thrombus in the left atrial appendage. Catheterization showed diffusely diseased LAD distally, RCA was dominant and disease free, circumflex had a 60-70% mid lesion. Yesterday on 03/19/2019 patient underwent aortic valve replacement with a #23 mm a villous hypostatic [employer] aortic valve, mitral valve repair with a #30 mm [employer] annular flex band, and single-vessel coronary artery bypass grafting with reverse SVG to the circumflex and ligation of the left atrial appendage with a #35 mm Atriclip. The patient is seen today 03/27/2019 in follow-up on the selective care unit. She is currently sitting up in a chair at the bedside. Awake and alert in no acute distress. She is currently maintaining good O2 saturations in the upper 90s on 2 L/m per nasal cannula. She's been afebrile. Hemodynamically stable. White count 14.5. Hemoglobin 7.6. Creatinine 1.83. AST 107. ALT 319. She is status post 6 units of packed red blood cells. She remains on amiodarone. Anticoagulated with Eliquis. Continued on bronchodilators. She is working well with the incentive spirometer. Needs increased encouragement. Today's chest x- ray was reviewed. No plans for thoracentesis at this point. The patient is seen today 03/28/2019 in follow-up on the selective care unit. Currently sitting up in a chair at the bedside. Awake and alert in no acute distress. Chest x-ray reveals cardiomegaly, possible interstitial edema with pulmonary venous hypertension. Some small basilar effusions/atelectasis. Somewhat more fatigued today as compared to yesterday. Pale. White count 14.8. Hemoglobin 7.4. Creatinine 2.06. AST 553. ALT 627. On 03/29/2019 the patient is looking slightly better. Breathing easier. Pulling approximately 1100 on the incentive spirometer. No cough or sputum production. We'll doing percussion and vibration to the right lower chest area. Remains in sinus rhythm. Off amiodarone. LFTs are improving. Creatinine is at 1.84 which is lower than yesterday. Sodium level is at 129. No new complaints otherwise for now. No chest pain. No palpitation. Hemoglobin stable at 8.0 On 03/30/2019 patient is still short of breath. Despite her being on room air oxygen, the patient is still struggling with her breathing and she short of breath. She is using incentive spirometer. A repeat echo cardiac exam was done and the patient was found to have moderate amount of pericardial effusion. Also, she is back to atrial fibrillation. LFTs are improving. The white cell count is at 16.8. Hemoglobin is at 8.5. Renal function shows a creatinine of 1.8. No other significant events overnight. The plan is for this patient to be ventilated by cardiac thoracic surgery in consultation for a cardiocentesis versus pericardial window. As for the right lung finding, the patient continues to diminished breath on the right lung base due to a combination of atelectasis/effusion. The echocardiogram showed an ejection fraction of 40-45%. The left ventricle was mildly dilated. There is mild to moderate impairment of the ejection fraction. Objective - Vital Signs Vital signs: Vital Signs Temp 97.3 F L 03/30/19 12:45 Pulse 109 H 03/30/19 12:45 Resp 22 03/30/19 12:45 BP 112/71 03/30/19 12:45 Pulse Ox 97 03/30/19 12:45 Intake & Output 03/29/19 03/30/19 03/30/19 18:59 06:59 18:59 Intake Total 1350 600 Output Total 1000 800 Balance 350 600 -800 Weight 118.3 kg 118.3 kg Intake: Oral 1350 600 Output: Urine 1000 800 Other: Voiding Method Bedside Commode Toilet Toilet Bedside Commode Bedside Commode # Voids 1 1 # Bowel Movements 1 ABP, PAP, CO, CI - Last Documented Arterial Blood Pressure 102/67 Pulmonary Artery Pressure 38/16 Cardiac Output 4.7 Cardiac Index 2.1 - Exam GENERAL EXAM: Alert, oriented 79-year-old white female patient, on 2 L in no acute distress. HEAD: Normocephalic/atraumatic. EYES: Normal reaction of pupils, equal size. Conjunctiva pink, sclera white. NOSE: Clear with pink turbinates. THROAT: No erythema or exudates. NECK: No masses, no JVD, no thyroid enlargement, no adenopathy. CHEST: No chest wall deformity. Symmetrical expansion. Midsternal incision is clean dry and intact, covered with surgical dressing. LUNGS: Equal air entry with crackles in the right posterior base, diminished CVS: Regular rate and rhythm, normal S1 and S2, no gallops, no murmurs, no rubs ABDOMEN: Soft, nontender. No hepatosplenomegaly, normal bowel sounds, no guarding or rigidity. EXTREMITIES: No clubbing, no edema, no cyanosis, 2+ pulses and upper and lower extremities. MUSCULOSKELETAL: Muscle strength and tone normal. SPINE: No scoliosis or deformity SKIN: No rashes CENTRAL NERVOUS SYSTEM: Awake, and alert, oriented times three. No focal deficits, tone is normal in all 4 extremities. - Labs CBC & Chem 7: 03/30/19 06:04 03/30/19 06:04 Labs: Abnormal Lab Results - Last 24 Hours (Table) 03/29/19 03/29/19 03/30/19 Range/Units 16:50 20:43 06:04 WBC 16.8 H (3.8-10.6) k/uL RBC 2.74 L (3.80-5.40) m/uL Hgb 8.5 L (11.4-16.0) gm/dL Hct 26.9 L (34.0-46.0) % RDW 19.8 H (11.5-15.5) % Sodium (137-145) mmol/L Chloride (98-107) mmol/L Carbon Dioxide (22-30) mmol/L BUN (7-17) mg/dL Creatinine (0.52-1.04) mg/dL Glucose (74-99) mg/dL POC Glucose (mg/dL) 154 H 156 H (75-99) mg/dL Total Bilirubin (0.2-1.3) mg/dL AST (14-36) U/L ALT (9-52) U/L Alkaline Phosphatase (38-126) U/L Total Protein (6.3-8.2) g/dL Albumin (3.5-5.0) g/dL Urine Protein (Negative) 03/30/19 03/30/19 03/30/19 Range/Units 06:04 06:11 11:55 WBC (3.8-10.6) k/uL RBC (3.80-5.40) m/uL Hgb (11.4-16.0) gm/dL Hct (34.0-46.0) % RDW (11.5-15.5) % Sodium 132 L (137-145) mmol/L Chloride 90 L (98-107) mmol/L Carbon Dioxide 34 H (22-30) mmol/L BUN 73 H (7-17) mg/dL Creatinine 1.89 H (0.52-1.04) mg/dL Glucose 115 H (74-99) mg/dL POC Glucose (mg/dL) 140 H (75-99) mg/dL Total Bilirubin 1.5 H (0.2-1.3) mg/dL AST 156 H (14-36) U/L ALT 459 H (9-52) U/L Alkaline Phosphatase 154 H (38-126) U/L Total Protein 5.2 L (6.3-8.2) g/dL Albumin 3.3 L (3.5-5.0) g/dL Urine Protein Trace H (Negative) 03/30/19 Range/Units 11:56 WBC (3.8-10.6) k/uL RBC (3.80-5.40) m/uL Hgb (11.4-16.0) gm/dL Hct (34.0-46.0) % RDW (11.5-15.5) % Sodium (137-145) mmol/L Chloride (98-107) mmol/L Carbon Dioxide (22-30) mmol/L BUN (7-17) mg/dL Creatinine (0.52-1.04) mg/dL Glucose (74-99) mg/dL POC Glucose (mg/dL) 171 H (75-99) mg/dL Total Bilirubin (0.2-1.3) mg/dL AST (14-36) U/L ALT (9-52) U/L Alkaline Phosphatase (38-126) U/L Total Protein (6.3-8.2) g/dL Albumin (3.5-5.0) g/dL Urine Protein (Negative) Assessment and Plan Plan: 1. Aortic valve stenosis, with severe aortic valve regurgitation, status post aortic valve replacement and Moderate to severe mitral valve regurgitation, status post mitral valve repair. The patient also underwent left atrial appendage occlusion 2 Single-vessel coronary artery disease, status post coronary artery bypass grafting surgery 1 vessel 3 Decreased LV function with preoperative ejection fraction of 30%, improved following surgery. The repeat echo cardiac exam was done and the patient was found to have improvement in ejection fraction which was up to 40-45% along with that there was a moderate degree of pericardial effusion and this will need to be reevaluated by cardiothoracic surgery. 4 new onset and recurrent atrial fibrillation, and the patient converted back from sinus to atrial fibrillation once she was off the amiodarone. 5. Hypertension 6. Hyperlipidemia 7. Hypothyroid 8. Non-critical carotid stenosis with a 50-70% right ICA stenosis 9. Shortness of breath secondary to above 10. Postoperative Hypotension, resolved 11. Chronic renal failure, baseline creatinine 1.3-1.6 12. Thrombocytopenia, reactive HIT panel negative, and the plated count is improving 13 abnormal LFTs related to amiodarone, improving 14 moderate-sized pericardial effusion based on today's echocardiogram Plan The ventilated by cardiothoracic surgery. Consideration for pericardiocentesis versus window. Keep the departments on hold. Plated count is up to 209. Monitor LFTs. Keep the patient off amiodarone. We'll continue to follow.
--- NOTE | 2019-03-30 15:35 | P.NPCON ---
History of Present Illness - Reason for Consult acute renal failure - History of Present Illness Reason for consultation: Acute kidney injury on chronic kidney disease History of present illness: Patient is a 79-year-old female seen in renal consultation for acute kidney injury on chronic kidney disease. Patient has chronic kidney disease stage III with baseline creatinine in the range of 1.1-1.4. Etiology is cardiorenal syndrome. Patient presented to the hospital on 03/19/2019 and underwent CABG a long with mitral valve repair and aortic valve replacement. Subsequently the patient developed postoperative bleed and underwent emergent reexploration of the chest with evacuation of clot. Patient's ejection fraction now is 40-45%. She has been voiding. She does have edema in her lower extremities. She has been ambulating. Oral intake is fair. No vomiting or diarrhea. Denies hematuria or dysuria. No history of diabetes mellitus. She denies any family history of renal disease. Currently she is not on any nephrotoxins. Hemodynamically she is stable. Vital signs are stable. General: The patient appeared well nourished and normally developed. HEENT: Head exam is unremarkable. Neck is without jugular venous distension. LUNGS: Lungs are clear to auscultation and percussion. Breath sounds decreased. HEART: Rate and Rhythm are regular. First and second heart sounds normal. No murmurs, rubs or gallops. ABDOMEN: Abdominal exam reveals normal bowel sounds. Non-tender and non-diste nded. No evidence of peritonitis. EXTREMITITES: 1+ edema. Past Medical History Past Medical History: Coronary Artery Disease (CAD), Eye Disorder, GERD/Reflux, Hyperlipidemia, Hypertension, Osteoarthritis (OA), Thyroid Disorder Additional Past Medical History / Comment(s): Increased SOB w/ activity,Aortic valve stenosis/regurgitation,mitral valve regurgitation,bruised left great toe,Hx GLAUCOMA History of Any Multi-Drug Resistant Organisms: None Reported Past Surgical History: Heart Catheterization, Joint Replacement, Orthopedic Surgery Additional Past Surgical History / Comment(s): BILATERAL CATARACT EYE SURGERY WITH IMPLANTS , LEFT SHOULDER SURGERY, RIGHT TOTAL KNEE, FATTY CYST REMOVED FROM BACK, RIGHT ANKLE SURGERY, HARDWARE REMOVED RIGHT ANKLE ,laser olga lidia eyes tx glaucoma,CHAITANYA Past Anesthesia/Blood Transfusion Reactions: No Reported Reaction Additional Past Anesthesia/Blood Transfusion Reaction / Comment(s): no hx blood transfusion Smoking Status: Former smoker - Past Family History Mother Family Medical History: No Reported History Medications and Allergies Home Medications Medication Instructions Recorded Confirmed Type Aspirin [Adult Low Dose Aspirin EC] 81 mg PO DAILY 01/28/17 03/19/19 History Levothyroxine Sodium [Synthroid] 50 mcg PO QAM 01/28/17 03/19/19 History Metoprolol Succinate [Toprol XL] 25 mg PO HS 01/28/17 03/19/19 History Multivit-Min/Iron/Folic/Lutein 1 tab PO DAILY 01/28/17 03/19/19 History [Centrum Silver Women Tablet] Simvastatin [Zocor] 20 mg PO HS 01/28/17 03/19/19 History amLODIPine BESYLATE/BENAZEPRIL 1 cap PO DAILY 01/28/17 03/19/19 History [Lotrel 5-40 mg Capsule] Acetaminophen Tab [Tylenol Tab] 650 mg PO Q4H PRN 02/01/19 03/19/19 History Penicillin V Potassium [Pen Vee K] 500 mg PO QID 03/14/19 03/19/19 History Cholecalciferol [Vitamin D3 (25 1,000 unit PO DAILY 03/19/19 03/19/19 History Mcg = 1000 Iu)] Allergies Allergy/AdvReac Type Severity Reaction Status Date / Time oats AdvReac abdominal Verified 03/19/19 07:57 bloating/gas discomfort Physical Exam Vitals: Vital Signs Temp Pulse Pulse Resp BP BP Pulse Ox 03/30/19 12:45 97.3 F L 96 20 112/71 97 03/30/19 11:33 92 03/30/19 11:25 88 03/30/19 09:00 98 03/30/19 08:03 97.6 F 109 H 20 109/67 98 03/30/19 08:00 68 03/30/19 07:51 68 03/30/19 04:00 90 22 146/67 99 03/30/19 00:00 66 24 113/56 94 L 03/29/19 21:00 94 L 03/29/19 20:26 72 03/29/19 20:12 68 96 03/29/19 20:00 97.6 F 66 28 H 140/63 94 L 03/29/19 16:48 97.2 F L 67 20 118/58 100 03/29/19 16:10 89 24 03/29/19 16:07 62 03/29/19 15:52 59 L Intake and Output 03/30/19 03/30/19 03/30/19 06:59 14:59 22:59 Intake Total 600 Output Total 800 Balance 600 -800 Intake: Oral 600 Output: Urine 800 Other: Voiding Method Toilet Bedside Commode # Voids 1 Weight 118.3 kg 118.3 kg Results - Lab Results Most recent lab results ABG pH 7.47 (7.35-7.45) H 03/20/19 17:47 ABG pCO2 37 mmHg (35-45) 03/20/19 17:47 ABG pO2 93 mmHg (83-108) 03/20/19 17:47 ABG HCO3 27 mmol/L (21-25) H 03/20/19 17:47 ABG O2 Saturation 98.0 % (94-97) H 03/20/19 17:47 Calcium 8.9 mg/dL (8.4-10.2) 03/30/19 06:04 Phosphorus 4.0 mg/dL (2.5-4.5) 03/26/19 12:10 Magnesium 2.3 mg/dL (1.6-2.3) 03/29/19 05:54 03/30/19 06:04 03/30/19 06:04 Assessment and Plan Plan: Assessment: 1. Acute kidney injury secondary to ATN secondary to cardiorenal syndrome. Creatinine peaked at 2.06 this admission and is 1.89 today. UA is quite benign. 2. Status post CABG, mitral valve repair and aortic valve replacement on March 19. 3. Systolic CHF with ejection fraction of 40-45%. 4. Chronic kidney disease stage III with baseline creatinine in the range of 1.1-1.5 secondary to cardiorenal syndrome. 5. Volume overload. 6. Hypervolemic hyponatremia. 7. Anemia. Related to postoperative blood loss. Rule out iron deficiency. Plan: Status post IV Lasix this morning. Continue to assess need for diuretics on day-to-day basis. Check renal ultrasound. Encouraged oral intake, particularly protein. Avoid nephrotoxins. Check iron studies. Repeat electrolytes in the morning. Thank you for the consultation. I will continue to follow the patient with you during her hospital stay.
--- NOTE | 2019-03-30 16:15 | US ---
EXAMINATION TYPE: US kidneys/renal and bladder DATE OF EXAM: 03/30/2019 COMPARISON: NONE CLINICAL HISTORY: collin. No pain. EXAM MEASUREMENTS: Right Kidney: 9.6 x 5.1 x 5.0 cm Left Kidney: 10.2 x 4.9 x 6.0 cm Suboptimal visualization due to patient body habitus Right Kidney: No hydronephrosis or masses seen. Cortical thinning and appears lobular Left Kidney: No hydronephrosis or masses seen. Cortical thinning and appears lobular Bladder: Incompletely distended, wall appears thickened = 0.5 cm Bilateral Jets not seen There is no evidence for hydronephrosis at this point in time. No nephrolithiasis is seen. No chayo s are identified. The urinary bladder is anechoic. Bilateral ureteral jets are seen. Benign appeari ng peripherally calcified splenic lesion is incidentally seen. IMPRESSION: 1. No hydronephrosis or nephrolithiasis. Sequela of medical renal disease with cortical thinning bila terally and lobular contour. 2. Urinary bladder wall thickening may relate to incomplete distention or cystitis. Correlate with ur inalysis.
--- NOTE | 2019-03-30 16:22 | P.PN ---
Subjective Progress Note Date: 03/30/19 This is a 79-year-old female status post CABG X1, aortic valve replacement with bioprosthetic valve, mitral valve repair in a patient with severe aortic valve stenosis, moderate to severe mitral valve regurgitation, CAD, ischemic cardiomyopathy-preop EF 30%, pulmonary hypertension, hypertension, hypothyro idism and multiple other medical issues. Shortly after returning to ICU postop, she developed increased chest tube ouput of 1.3 L over 1-1/2 hours, returned to the OR and required emergent reexploration of the chest with evacuation of clots, control bleeding, placement of IABP. Mediastinal and left pleural chest tube drainage improved. This morning IABP weaned to 1:3 with plans for discontinuing this morning. Continuies on DIprovan, Levophed, Primacor and insulin drips. Cardiac output 7.4, cardiac index 3.4. Maintained on mechanical ventilation with FiO2 40%/+5 of PEEP. Chest x-ray reporting bilateral consolidation and pleural effusion. Telemetry accelerated junctional. 03/21/2019 Extubated yesterday evening.Maintaining O2 sats in the high 90s on 4 L nasal cannula. Incentive spirometer 800 to 1000. Maintained on insulin and Levophed drips. Recent cardiac output/cardiac index 6.1/2.8 .Developed atrial fibrillation last night, received digoxin. Remains in atrial fibrillation, receiving amiodarone bolus with drip pending. Magnesium 2.2, potassium 4.7. Hemoglobin remains stable at 8.5, platelets 62. creatinine 1.26 .Pain controlled. 03/22/2019 maintained on insulin, amiodarone, Levophed drips. Telemetry atrial fibrillation. Amiodarone discontinued secondary to elevated transminases; continues on metoprolol. Arixtra initiated. IS up to 1000. Maintaining O2 sats in the high 90s on 4 L nasal cannula. Chest x-ray reporting mild central vascular congestion, small bilateral pleural effusions and bibasilar acute infiltrates versus atelectasis-no significant change. Maintained on Lasix IV push with 24-hour I&O reflecting a positive fluid balance. 24-hour I&O reflects mediastinal chest tube for 417mls and left pleural chest tube 190mls in the next 24 hours.Hemoglobin 7.8, platelets 57. CO/CI 4.7/2.1. Creatinine 1.37. T-max 100.8, WBC 16.7. Blood sugars controlled. 03/23/2019 All drips have been weaned off. Cardiology discussing removing both pleural and mediastinal chest tubes today .Telemetry controlled atrial fibrillation on beta heriberto. Mild shortness of breath, maintaining O2 sats in the mid 90s on 3 L nasal cannula. Chest x-ray reporting bilateral atelectasis, stable small effusion, fluid overload. IS up to 750. Diuresing well on Lasix IV push with 24-hour I&O reflecting a negative fluid balance. 03/26/19 Sitting up in chair, continues to improve. Diuresing well with edema improving. Bicarb 34, sodium level 130, hemoglobin 7.[address] pending.Incentive spirometer up to almost 1000. Maintaining O2 sats in the mid 90s on room air. LFTs trending down. Controlled proximal atrial fibrillation, on Eliquis. Has not yet walked today, but states did ambulate yesterday in the hallway. Potassium of 3.4 being supplemented. 03/27/2019 sitting up in chair, maintaining O2 sats in the high 90s on 2 L nasal cannula.IS up to 1000. Ambulated in the hallway -Complains of mild shortness of breath, exertional shortness of breath. Chest x-ray reporting basilar effusions, atelectasis. Anticoagulated with Eliquis. Hemoglobin 7.6. Afebrile, WBC 14.5. Creatinine up to 1.83, Lasix discontinued. Sodium 131, fluid restrictions maintained. Developed paroximal atrial fibrillation last night, amiodarone drip initiated. Telemetry currently sinus rhythm with occasional PVC. amiodarone drip converted to oral. Bradycardic,Beta heriberto dose decreased. AST 107, ALT 319, T bili 1.2, statin remains on hold. Blood sugars controlled. Afebrile. 03/28/2019 telemetry sinus rhythm with occasional accelerated junctional rhythm, bradycardic at times with heart rates in the 50s. Borderline hypotension with MAP in the low 70s. Maintaining O2 sats low 90s to 95% on room air .Sitting up in chair, and does not feel well, complains of increased shortness of breath, fatigue. Pale appearance. Hgb 7.4, scheduled for transfusion of packed RBCs amiodarone discontinued as LFTs remain elevated, mildly improved with T bili up to 1.5. 24-hour I&O reflecting a negative fluid balance. Chest x-ray reporting cardiomegaly, possible interstitial edema, pulmonary venous hypertension, bibasilar effusions, atelectasis, prominent aorta with no evidence of pneumothorax. Incentive spirometer up to 750. 03/29/2019 Reports less fatigue this morning, shortness of breath, positive surgical site chest pain. yesterday she received 1 unit of packed RBCs, albumin with current hemoglobin at 8.0. Creatinine 1.84. Controlled atrial fibrillati on earlier this morning with reported multiple nonsustained runs of V. tach. Received additional Lopressor. Magnesium 2.30, potassium 4.2, bicarb 31. Maintaining O2 sats in the mid 90s on room air, 99% on 2 L nasal cannula. Chest x-ray pending. IS decreased to 500.Systolic blood pressure currently in the 90s. Telemetry currently reported patient converted to sinus bradycardia, heart rate in the 50s. LFTs continue to trend down slowly, T bili up to 1.8. 03/30/2019 maintaining O2 sats in the mid to high 90s on room air, complains of periodic shortness of breath at rest as well as exertional shortness of breath. IS up to 750. Chest x-ray reporting similar with probable bibasilar atelectasis, small effusions, stable cardiomegaly, aortic aneurysm. Telemetry atrial fibrillation , T bili 1.5, LFTs improving. Hemoglobin 8.5. Repeat echo reporting moderate paracardial effusion.Creatinine 1.89. Afebrile, WBC increased to 16.8. Objective - Vital Signs Vital signs: Vital Signs Temp 97.3 F L 03/30/19 12:45 Pulse 109 H 03/30/19 12:45 Resp 22 03/30/19 12:45 BP 112/71 03/30/19 12:45 Pulse Ox 97 03/30/19 12:45 Intake & Output 03/29/19 03/30/19 03/30/19 18:59 06:59 18:59 Intake Total 1350 600 Output Total 1000 800 Balance 350 600 -800 Weight 118.3 kg Intake: Oral 1350 600 Output: Urine 1000 800 Other: Voiding Method Bedside Commode Toilet Toilet Bedside Commode Bedside Commode # Voids 1 1 # Bowel Movements 1 ABP, PAP, CO, CI - Last Documented Arterial Blood Pressure 102/67 Pulmonary Artery Pressure 38/16 Cardiac Output 4.7 Cardiac Index 2.1 - Exam PHYSICAL EXAM: VITAL SIGNS: As above GENERAL: Sitting up in chair, no acute distress, fatigued HEENT: Conjunctivae normal. eyes normal. Oral mucosa moist NECK: No JVD. No thyroid enlargement. No LNs. CARDIOVASCULAR: S1, S2 , irregular No murmur, rubs or gallops. RESPIRATION: Breath sounds diminished in the bases. No rhonchi, fine right basilar crackles, scattered expiratory wheezes greater on the right ABDOMEN: Soft, nontender . No guarding. no masses palpable. Positive Bowel sounds. LEGS: Decreasing Generalized edema, positive peripheral pulses, LAUREL hose. PSYCHIATRY: Alert and oriented 3, mood and affect normal NERVOUS SYSTEM: Cranial nerves II through XII grossly intact, moves all 4 extremities, mild diffuse generalized weakness. No focal deficits. Skin: Warm, dry without diaphoresis .Generalized mild edema ,no lesions, no rash. No clubbing, no cyanosis. - Labs CBC & Chem 7: 03/30/19 06:04 03/30/19 06:04 Labs: Abnormal Lab Results - Last 24 Hours (Table) 03/29/19 03/29/19 03/30/19 Range/Units 16:50 20:43 06:04 WBC 16.8 H (3.8-10.6) k/uL RBC 2.74 L (3.80-5.40) m/uL Hgb 8.5 L (11.4-16.0) gm/dL Hct 26.9 L (34.0-46.0) % RDW 19.8 H (11.5-15.5) % Sodium (137-145) mmol/L Chloride (98-107) mmol/L Carbon Dioxide (22-30) mmol/L BUN (7-17) mg/dL Creatinine (0.52-1.04) mg/dL Glucose (74-99) mg/dL POC Glucose (mg/dL) 154 H 156 H (75-99) mg/dL Total Bilirubin (0.2-1.3) mg/dL AST (14-36) U/L ALT (9-52) U/L Alkaline Phosphatase (38-126) U/L Total Protein (6.3-8.2) g/dL Albumin (3.5-5.0) g/dL 03/30/19 03/30/19 03/30/19 Range/Units 06:04 06:11 11:56 WBC (3.8-10.6) k/uL RBC (3.80-5.40) m/uL Hgb (11.4-16.0) gm/dL Hct (34.0-46.0) % RDW (11.5-15.5) % Sodium 132 L (137-145) mmol/L Chloride 90 L (98-107) mmol/L Carbon Dioxide 34 H (22-30) mmol/L BUN 73 H (7-17) mg/dL Creatinine 1.89 H (0.52-1.04) mg/dL Glucose 115 H (74-99) mg/dL POC Glucose (mg/dL) 140 H 171 H (75-99) mg/dL Total Bilirubin 1.5 H (0.2-1.3) mg/dL AST 156 H (14-36) U/L ALT 459 H (9-52) U/L Alkaline Phosphatase 154 H (38-126) U/L Total Protein 5.2 L (6.3-8.2) g/dL Albumin 3.3 L (3.5-5.0) g/dL Assessment and Plan Assessment: -Status post CABG 1 with Aortic and Mitral valve repair with left atrial appendage exclusion, secondary to severe aortic valve stenosis and moderate to severe mitral valve regurgitation. Bioprosthetic aortic valve. -Acute postoperative bleeding, unexpected outcome, status post emergent reexploration, evacuation of clot and control of bleeding, status post placement of IABP. -Acute blood loss anemia secondary to the above, status post transfusions of multiple products; RBCs, cryoprecipitate, FFP, platelets -Postoperative hypotension, secondary to hemorrhagic shock, unexpected outcome, status post pressor dependent -Thrombocytopenia -Postoperative paroximal atrial fibrillation -Secondary pulmonary hypertension -Chronic systolic CHF, Ischemic cardiomyopathy, preop EF 30%, post surgery EF 40-45%. -Hyperlipidemia -Hypertension, history of -Hypothyroidism -Right ICA stenosis 50-70% -History of nicotine dependence -Acute on chronic renal failure, stage III. -Hyponatremia -Transaminitis -Nonsustained runs of V. tach -Moderate sized pericardial effusion per echo -Leukocytosis, UA ordered Plan: Continue current medication regime , beta heriberto, aspirin, anticoagulation, monitoring and symptomatic treatment. Cardiothoracic surgery discussing window versus pericardiocentesis.Aggressive pulmonary toileting with incentive spirometer reinforced. Maintain nebulized bronchodilators. Close monitoring of renal function, electrolytes, LFTs with repeat labs ordered for a.m. prognosis guarded given multiple complex medical issues. Further recommendations to follow. The impression and plan of care has been dictated as directed. : I performed a history and examination of this patient, discussed the same with the dictator. I agree with the dictator's note ,documented as a scribe. Any additional findings or plans will be noted. Time taken: 35 minutes.
[2019-03-30 16:51] LABS: Glucose,Whole Blood 162 mg/dL (75-99)
[2019-03-30] MEDS ORDERED: SODIUM CHLORIDE 0.9% 1,000 ML IV SCH (17:00)
[2019-03-30] MEDS ORDERED: fentaNYL (PF) 50 MCG/ML 2 ML AMP IV PRN (19:10)
[2019-03-30] MEDS ORDERED: LACTATED RINGERS 1,000 ML IV SCH (19:15)
[2019-03-30] MEDS: SENNOSIDES-DOCUSATE SODIUM 1 EACH TAB PO SCH (20:09)
[2019-03-30] MEDS: SYMBICORT 160-4.5 MCG INHALER INHALATION SCH (20:51)
[2019-03-30 21:08] LABS: Iron Saturation 16.17 (12.00-45.00)
[2019-03-30 21:09] LABS: Glucose,Whole Blood 145 mg/dL (75-99)
[2019-03-31 02:02] LABS: Glucose,Whole Blood 145 mg/dL (75-99)
[2019-03-31 05:55] LABS: Glucose,Whole Blood 128 mg/dL (75-99)
[2019-03-31] MEDS: INSULIN ASPART (NovoLOG) 100 UNIT/ML VIAL SQ SCH ×4 (06:12→22:08)
[2019-03-31] MEDS: LEVOTHYROXINE 50 MCG TAB PO SCH (06:17)
[2019-03-31] MEDS: CHOLECALCIFEROL 1,000 UNIT TAB PO SCH (06:17)
[2019-03-31] MEDS: ASPIRIN 81 MG PO SCH (06:17)
[2019-03-31] MEDS: FERROUS SULFATE 325 MG TAB PO SCH ×2 (06:17→17:05)
[2019-03-31] MEDS: METOPROLOL TARTRATE 50 MG TAB PO SCH ×2 (06:17→22:09)
[2019-03-31] MEDS: PANTOPRAZOLE 40 MG TABLET PO SCH (06:17)
[2019-03-31] MEDS: ASCORBIC ACID 500 MG TAB PO SCH ×2 (06:17→17:05)
--- NOTE | 2019-03-31 07:12 | XR ---
EXAMINATION TYPE: XR chest 2V DATE OF EXAM: 03/31/2019 HISTORY: post op cardiac surgery. REFERENCE: Previous study dated 03/30/2019. FINDINGS: There has been a midline sternotomy. The heart is mildly enlarged. There is ectasia of the thoracic aorta. IMPRESSION: 1. MILD CHANGES OF HEART FAILURE. 2. SMALL, BILATERAL EFFUSIONS.
[2019-03-31] MEDS ORDERED: LIDOCAINE 1% INJ 10MG/ML (20 ML MDV) ONE (07:27)
[2019-03-31] MEDS ORDERED: SUCCINYLCHOLINE CHLORIDE 100 MG/5 ML SYR IV ONE (07:27)
[2019-03-31] MEDS ORDERED: PHENYLEPHRINE-0.9% NACL SYG 1 MG/10 ML SYRINGE ONE (07:27)
[2019-03-31] MEDS ORDERED: ePHEDrine SULFATE/0.9% NACL/PF 50 MG/5 ML SYRINGE IV ONE (07:27)
[2019-03-31] MEDS ORDERED: fentaNYL (PF) 50 MCG/ML 2 ML AMP ONE (07:27)
[2019-03-31] MEDS ORDERED: ROCURONIUM BROMIDE 10 MG/ML 10 ML VIAL IV ONE (07:27)
[2019-03-31] MEDS ORDERED: ONDANSETRON 4 MG/2 ML VIAL ONE (07:27)
[2019-03-31] MEDS ORDERED: NEOSTIGMINE 1 MG/ML 10 ML VIAL ONE (07:27)
[2019-03-31] MEDS ORDERED: GLYCOPYRROLATE 0.2 MG/ML 2 ML VIAL ONE (07:27)
[2019-03-31] MEDS ORDERED: ETOMIDATE 2 MG/ML 10 ML VIAL ONE (07:27)
[2019-03-31] MEDS ORDERED: LACTATED RINGERS 1,000 ML IV ONE (07:29)
[2019-03-31 07:36] LABS: Anisocytosis Slight; Basophils % (A) 0 %; Eosinophils # (A) 0.1 k/uL (0-0.7); Eosinophils % (A) 0 %; HCT 27.6 % (34.0-46.0); HGB 8.3 gm/dL (11.4-16.0); Hypochromasia Moderate; Lymphocytes # (A) 0.7 k/uL (1.0-4.8); Lymphocytes % (A) 4 %; MCH 29.6 pg (25.0-35.0); MCHC 30.1 g/dL (31.0-37.0); MCV 98.3 fL (80.0-100.0); Macrocytosis Slight; Mean Platelet Volume 7.2; Monocytes # (A) 1.1 k/uL (0-1.0); Monocytes % (A) 7 %; Neutrophils # (A) 15.5 k/uL (1.3-7.7); Neutrophils % (A) 88 %; Platelet Count 228 k/uL (150-450); Poikilocytosis Slight; RBC 2.81 m/uL (3.80-5.40); RDW 19.3 % (11.5-15.5); WBC 17.6 k/uL (3.8-10.6)
[2019-03-31 07:38] LABS: Albumin 3.3 g/dL (3.5-5.0); Calcium 9.1 mg/dL (8.4-10.2); Potassium 4.2 mmol/L (3.5-5.1); Total Bilirubin 1.3 mg/dL (0.2-1.3); Total Protein 5.3 g/dL (6.3-8.2)
[2019-03-31] MEDS ORDERED: SODIUM CHLORIDE 0.9% 100 ML with ceFAZolin 2,000 MG IV ONE ×2 (07:38)
[2019-03-31 07:56] LABS: INR 1.1 (<1.2); Prothrombin Time 11.5 sec (9.0-12.0)
[2019-03-31] MEDS: IPRATROPIUM-ALBUTEROL 3 ML NEB INHALATION SCH ×4 (09:00→20:00)
[2019-03-31] MEDS: SYMBICORT 160-4.5 MCG INHALER INHALATION SCH ×2 (09:00→20:01)
--- NOTE | 2019-03-31 09:34 | OP ---
OPERATIVE REPORT DATE OF SURGERY: 03/31/2019 PREOPERATIVE DIAGNOSIS: Pericardial effusion. POSTOPERATIVE DIAGNOSIS: Pericardial effusion. PROCEDURE: 1. Pericardial window. 2. Placement of right pleural chest tube. 3. Synchronized cardioversion. SURGEON: Saulo Schmidt MD DRUM SANDER: Blas Putnam NP ANESTHESIA: General. SPECIMENS: None. COMPLICATIONS: None. INDICATION: The patient is a 79-year-old female who underwent aortic valve replacement, mitral valve repair, and single-vessel coronary artery bypass on 03/19/2019. She has been persistently dyspneic with exertion. Echocardiogram performed yesterday did reveal a moderate pericardial effusion. Drainage of the effusion was recommended. The risks, benefits and alternatives to this procedure were discussed with the patient. All of her questions were answered. Consent was obtained. Of note, the patient was also found to have a right pleural effusion, for which a pleural chest tube was recommended. Finally, the patient has been in atrial fibrillation while on Eliquis. Synchronized cardioversion was also recommended. FINDINGS: There was approximately 500 mL of old bloody fluid drained from the pericardial space. There was approximately 700 mL of serosanguineous fluid drained from the right pleural space. The patient did convert to normal sinus rhythm after synchronized cardioversion. PROCEDURE IN DETAIL: The patient was taken to the operating room and placed supine on the operating table. After the induction of general anesthesia, she was prepped and draped in the usual sterile fashion. She remained hemodynamically stable. The inferior-most portion of the previous sternal incision was opened. Dissection was taken down to the subxiphoid process. Dissection continued bluntly below this area just over the diaphragm until a space was entered along the inferior surface of the heart. Approximately 500 mL of old bloody fluid was initially drained. There were no additional pockets noted. The space was copiously irrigated with warm saline solution. Again, no additional drainage was identified. There was no ongoing bleeding noted. A right-angled 32-Ethiopian chest tube was placed and directed into a retrocardiac position. It was secured to the skin using a suture. The wound was then closed in layers. Next, a small incision was made below the right breast and dissection was carried down over the underlying rib. The right pleural space was entered bluntly and a gloved finger was easily introduced. A straight 28-Ethiopian chest tube was placed and directed into the right pleural space. Approximately 700 mL of serosanguineous fluid was drained. This chest tube was also secured to the skin using a suture. Finally, the patient was noted to be in atrial fibrillation. She has been on Eliquis for several days now. The left atrial appendage also had been previously clipped. For this reason, a synchronized cardioversion with 100 joules of electricity was performed. The patient was converted to normal sinus rhythm. Her blood pressure remained stable. She appeared to tolerate the procedure well. There were no immediate complications. She was extubated at the completion of the case and returned to the recovery room in stable condition. MMODL / IJN: [id number] / MTDD
[2019-03-31 09:35] LABS: Glucose,Whole Blood 140 mg/dL (75-99)
[2019-03-31] MEDS ORDERED: DEXTROSE 5% IN WATER 100 ML with AMIODARONE 150 MG IV ONE (09:44)
--- NOTE | 2019-03-31 09:49 | P.PN ---
Subjective Progress Note Date: 03/31/19 Patient went for pericardial window. Will see her later today or tomorrow. Objective - Vital Signs Vital signs: Vital Signs Temp 97.4 F L 03/31/19 08:48 Pulse 76 03/31/19 09:46 Resp 20 03/31/19 09:46 BP 127/78 03/31/19 09:46 Pulse Ox 100 03/31/19 09:46 Intake & Output 03/30/19 03/31/19 03/31/19 18:59 06:59 18:59 Intake Total 350 Output Total 1999 20 Balance -1999 330 Weight 118.3 kg 117 kg Intake: IV 350 Output: Urine 1999 Estimated Blood Loss 20 Other: Voiding Method Toilet Bedside Commode # Voids 4 1 ABP, PAP, CO, CI - Last Documented Arterial Blood Pressure 102/67 Pulmonary Artery Pressure 38/16 Cardiac Output 4.7 Cardiac Index 2.1 - Labs CBC & Chem 7: 03/31/19 06:34 03/31/19 06:34 Labs: Abnormal Lab Results - Last 24 Hours (Table) 03/30/19 03/30/19 03/30/19 Range/Units 06:04 11:55 11:56 WBC (3.8-10.6) k/uL RBC (3.80-5.40) m/uL Hgb (11.4-16.0) gm/dL Hct (34.0-46.0) % MCHC (31.0-37.0) g/dL RDW (11.5-15.5) % Neutrophils # (1.3-7.7) k/uL Lymphocytes # (1.0-4.8) k/uL Monocytes # (0-1.0) k/uL Sodium (137-145) mmol/L Chloride (98-107) mmol/L Carbon Dioxide (22-30) mmol/L BUN (7-17) mg/dL Creatinine (0.52-1.04) mg/dL Glucose (74-99) mg/dL POC Glucose (mg/dL) 171 H (75-99) mg/dL Iron 38 L (50-170) ug/dL Ferritin 1297.2 H (10.0-291.0) ng/mL AST (14-36) U/L ALT (9-52) U/L Alkaline Phosphatase (38-126) U/L Total Protein (6.3-8.2) g/dL Albumin (3.5-5.0) g/dL Urine Protein Trace H (Negative) 03/30/19 03/30/19 03/31/19 Range/Units 16:50 21:08 02:01 WBC (3.8-10.6) k/uL RBC (3.80-5.40) m/uL Hgb (11.4-16.0) gm/dL Hct (34.0-46.0) % MCHC (31.0-37.0) g/dL RDW (11.5-15.5) % Neutrophils # (1.3-7.7) k/uL Lymphocytes # (1.0-4.8) k/uL Monocytes # (0-1.0) k/uL Sodium (137-145) mmol/L Chloride (98-107) mmol/L Carbon Dioxide (22-30) mmol/L BUN (7-17) mg/dL Creatinine (0.52-1.04) mg/dL Glucose (74-99) mg/dL POC Glucose (mg/dL) 162 H 145 H 145 H (75-99) mg/dL Iron (50-170) ug/dL Ferritin (10.0-291.0) ng/mL AST (14-36) U/L ALT (9-52) U/L Alkaline Phosphatase (38-126) U/L Total Protein (6.3-8.2) g/dL Albumin (3.5-5.0) g/dL Urine Protein (Negative) 03/31/19 03/31/19 03/31/19 Range/Units 05:53 06:34 06:34 WBC 17.6 H (3.8-10.6) k/uL RBC 2.81 L (3.80-5.40) m/uL Hgb 8.3 L (11.4-16.0) gm/dL Hct 27.6 L (34.0-46.0) % MCHC 30.1 L (31.0-37.0) g/dL RDW 19.3 H (11.5-15.5) % Neutrophils # 15.5 H (1.3-7.7) k/uL Lymphocytes # 0.7 L (1.0-4.8) k/uL Monocytes # 1.1 H (0-1.0) k/uL Sodium 132 L (137-145) mmol/L Chloride 90 L (98-107) mmol/L Carbon Dioxide 34 H (22-30) mmol/L BUN 74 H (7-17) mg/dL Creatinine 1.77 H (0.52-1.04) mg/dL Glucose 108 H (74-99) mg/dL POC Glucose (mg/dL) 128 H (75-99) mg/dL Iron (50-170) ug/dL Ferritin (10.0-291.0) ng/mL AST 155 H (14-36) U/L ALT 417 H (9-52) U/L Alkaline Phosphatase 151 H (38-126) U/L Total Protein 5.3 L (6.3-8.2) g/dL Albumin 3.3 L (3.5-5.0) g/dL Urine Protein (Negative) 03/31/19 Range/Units 09:31 WBC (3.8-10.6) k/uL RBC (3.80-5.40) m/uL Hgb (11.4-16.0) gm/dL Hct (34.0-46.0) % MCHC (31.0-37.0) g/dL RDW (11.5-15.5) % Neutrophils # (1.3-7.7) k/uL Lymphocytes # (1.0-4.8) k/uL Monocytes # (0-1.0) k/uL Sodium (137-145) mmol/L Chloride (98-107) mmol/L Carbon Dioxide (22-30) mmol/L BUN (7-17) mg/dL Creatinine (0.52-1.04) mg/dL Glucose (74-99) mg/dL POC Glucose (mg/dL) 140 H (75-99) mg/dL Iron (50-170) ug/dL Ferritin (10.0-291.0) ng/mL AST (14-36) U/L ALT (9-52) U/L Alkaline Phosphatase (38-126) U/L Total Protein (6.3-8.2) g/dL Albumin (3.5-5.0) g/dL Urine Protein (Negative)
--- NOTE | 2019-03-31 09:51 | XR ---
EXAMINATION TYPE: XR chest 1V DATE OF EXAM: 03/31/2019 HISTORY: pericardial window. REFERENCE: Previous study of earlier today. FINDINGS: There has been a midline sternotomy and valvular replacement. A right pleural drain has bee n inserted. The heart remains enlarged. Vascular pedicle is widened. The lungs are clear. I suspect small effusio ns. IMPRESSION: 1. CARDIOMEGALY. 2. IMPROVING CHANGES OF PULMONARY EDEMA.
[2019-03-31 10:46] LABS: Glucose,Whole Blood 141 mg/dL (75-99)
[2019-03-31] MEDS: AMIODARONE 200 MG TAB PO SCH ×2 (11:17→22:09)
[2019-03-31] MEDS ORDERED: HYDROcodone/APAP 5-325MG 1 EACH TAB PO PRN ×3 (11:25→20:57)
--- NOTE | 2019-03-31 11:55 | PN ---
PROGRESS NOTE FOLLOW-UP NOTE: Viviana is a 79-year-old lady who is status post aortic valve replacement and mitral valve repair who was having a very slow recovery. She had an echocardiogram that showed a large amount of pericardial effusion, for which she underwent a pericardial window today. She also had pleural effusion that was drained. Patient went into atrial fibrillation perioperatively and they shocked her. She was transiently in sinus rhythm. At the time of my evaluation she is back in atrial fibrillation. Please resume the anticoagulant as soon as you can. Heart rate is well controlled. On exam, heart rate is 80 beats per minute. Blood pressure is 111/59, respiratory rate 18. Chest exam reveals diminished air entry at the bases. Heart exam reveals first and second heart sounds. No gallop. No rub. Examination of extremities revealed 1+ edema. Labs show a hemoglobin of 8.3. Platelet count is 228. Potassium is 4.2. BUN is 74, creatinine 1.7. ASSESSMENT: 1. Status post aortic valve replacement and mitral valve repair. 2. Acute on chronic renal failure. 3. Pericardial effusion, status post window. 4. Pleural effusion. 5. Chronic atrial fibrillation. Continue the patient on Eliquis. She is also on amiodarone. Continue supportive care. MMODL / IJN: [id number] /
[2019-03-31 12:30] LABS: Glucose,Whole Blood 132 mg/dL (75-99)
--- NOTE | 2019-03-31 13:27 | P.PN ---
Subjective Progress Note Date: 03/31/19 This is a 79-year-old white female patient of Dr. Mati Vale, with a known history of aortic stenosis and regurgitation, hypertension, hyperlipidemia, hypothyroidism, moderate noncritical carotid artery stenosis, who was found to have significant decrease in LV function based on her echocardiogram in December 2018 with systolic/diastolic dysfunction. Recent underwent transesophageal echocardiogram on 02/05/2019 showing sclerotic and calcific aortic valve with severe aortic stenosis with area of the aortic valve calculated in the range of 1-1.1. There was moderate degree of mitral regurgitation, severely impaired left ventricle systolic function with estimated ejection fraction of 30%, and no evidence of thrombus in the left atrial appendage. Catheterization showed diffusely diseased LAD distally, RCA was dominant and disease free, circumflex had a 60-70% mid lesion. Yesterday on 03/19/2019 patient underwent aortic valve replacement with a #23 mm a villous hypostatic [employer] aortic valve, mitral valve repair with a #30 mm [employer] annular flex band, and single-vessel coronary artery bypass grafting with reverse SVG to the circumflex and ligation of the left atrial appendage with a #35 mm Atriclip. The patient is seen today 03/27/2019 in follow-up on the selective care unit. She is currently sitting up in a chair at the bedside. Awake and alert in no acute distress. She is currently maintaining good O2 saturations in the upper 90s on 2 L/m per nasal cannula. She's been afebrile. Hemodynamically stable. White count 14.5. Hemoglobin 7.6. Creatinine 1.83. AST 107. ALT 319. She is status post 6 units of packed red blood cells. She remains on amiodarone. Anticoagulated with Eliquis. Continued on bronchodilators. She is working well with the incentive spirometer. Needs increased encouragement. Today's chest x- ray was reviewed. No plans for thoracentesis at this point. The patient is seen today 03/28/2019 in follow-up on the selective care unit. Currently sitting up in a chair at the bedside. Awake and alert in no acute distress. Chest x-ray reveals cardiomegaly, possible interstitial edema with pulmonary venous hypertension. Some small basilar effusions/atelectasis. Somewhat more fatigued today as compared to yesterday. Pale. White count 14.8. Hemoglobin 7.4. Creatinine 2.06. AST 553. ALT 627. On 03/29/2019 the patient is looking slightly better. Breathing easier. Pulling approximately 1100 on the incentive spirometer. No cough or sputum production. We'll doing percussion and vibration to the right lower chest area. Remains in sinus rhythm. Off amiodarone. LFTs are improving. Creatinine is at 1.84 which is lower than yesterday. Sodium level is at 129. No new complaints otherwise for now. No chest pain. No palpitation. Hemoglobin stable at 8.0 On 03/30/2019 patient is still short of breath. Despite her being on room air oxygen, the patient is still struggling with her breathing and she short of breath. She is using incentive spirometer. A repeat echo cardiac exam was done and the patient was found to have moderate amount of pericardial effusion. Also, she is back to atrial fibrillation. LFTs are improving. The white cell count is at 16.8. Hemoglobin is at 8.5. Renal function shows a creatinine of 1.8. No other significant events overnight. The plan is for this patient to be ventilated by cardiac thoracic surgery in consultation for a cardiocentesis versus pericardial window. As for the right lung finding, the patient continues to diminished breath on the right lung base due to a combination of atelectasis/effusion. The echocardiogram showed an ejection fraction of 40-45%. The left ventricle was mildly dilated. There is mild to moderate impairment of the ejection fraction. On 03/31/2019 the patient is again postop. The patient underwent a pericardial window. The patient also underwent a right-sided chest tube insertion. The patient underwent cardioversion and operating room. There was a total of 700 mL of pleural fluid drained from the right lung and there was another 400 mL of pericardial effusion that was drained. Initially the patient had a successful cardioversion to sinus rhythm. After arriving to the ICU the patient went back into atrial fibrillation. The patient was given a bolus of amiodarone 150 mg and she'll be maintained on oral amiodarone. Chest tube is in place. Pericardial tube is in place. She is hemodynamically stable. She is not having any significant shortness of breath. Resting comfortably in bed. The LFTs are improving still. The creatinine is also improving is down to 1.7. No other significant events since the surgery and the patient is resting comfortably in bed. Chest x-ray was noted. Objective - Vital Signs Vital signs: Vital Signs Temp 97.5 F L 03/31/19 12:00 Pulse 86 03/31/19 12:18 Resp 25 H 03/31/19 12:00 BP 115/81 03/31/19 12:00 Pulse Ox 100 03/31/19 12:00 Intake & Output 03/30/19 03/31/19 03/31/19 18:59 06:59 18:59 Intake Total 400 Output Total 2000 200 Balance -2000 200 Weight 118.3 kg 117 kg 118 kg Intake: IV 400 Output: Urine 2000 Estimated Blood Loss 200 Other: Voiding Method Toilet Bedside Commode # Voids 4 1 ABP, PAP, CO, CI - Last Documented Arterial Blood Pressure 102/67 Pulmonary Artery Pressure 38/16 Cardiac Output 4.7 Cardiac Index 2.1 - Exam GENERAL EXAM: Alert, oriented 79-year-old white female patient, on 2 L in no acute distress. HEAD: Normocephalic/atraumatic. EYES: Normal reaction of pupils, equal size. Conjunctiva pink, sclera white. NOSE: Clear with pink turbinates. THROAT: No erythema or exudates. NECK: No masses, no JVD, no thyroid enlargement, no adenopathy. CHEST: No chest wall deformity. Symmetrical expansion. Midsternal incision is clean dry and intact, covered with surgical dressing. LUNGS: There is improved aeration in the right lung base as the patient had a chest tube insertion. There are also bibasilar crackles most on the right compared to the left. CVS: Irregular rhythm secondary to underlying atrial fibrillation. The patient has a irregular S1 and S2, no gallops, no murmurs, no rubs. The sternum stable clean and intact. There is a pericardial tube just below the sternum which is in place. ABDOMEN: Soft, nontender. No hepatosplenomegaly, normal bowel sounds, no guarding or rigidity. EXTREMITIES: No clubbing, no edema, no cyanosis, 2+ pulses and upper and lower extremities. MUSCULOSKELETAL: Muscle strength and tone normal. SPINE: No scoliosis or deformity SKIN: No rashes CENTRAL NERVOUS SYSTEM: Awake, and alert, oriented times three. No focal deficits, tone is normal in all 4 extremities. - Labs CBC & Chem 7: 03/31/19 06:34 03/31/19 06:34 Labs: Abnormal Lab Results - Last 24 Hours (Table) 03/30/19 03/30/19 03/30/19 Range/Units 06:04 11:55 16:50 WBC (3.8-10.6) k/uL RBC (3.80-5.40) m/uL Hgb (11.4-16.0) gm/dL Hct (34.0-46.0) % MCHC (31.0-37.0) g/dL RDW (11.5-15.5) % Neutrophils # (1.3-7.7) k/uL Lymphocytes # (1.0-4.8) k/uL Monocytes # (0-1.0) k/uL Sodium (137-145) mmol/L Chloride (98-107) mmol/L Carbon Dioxide (22-30) mmol/L BUN (7-17) mg/dL Creatinine (0.52-1.04) mg/dL Glucose (74-99) mg/dL POC Glucose (mg/dL) 162 H (75-99) mg/dL Iron 38 L (50-170) ug/dL Ferritin 1297.2 H (10.0-291.0) ng/mL AST (14-36) U/L ALT (9-52) U/L Alkaline Phosphatase (38-126) U/L Total Protein (6.3-8.2) g/dL Albumin (3.5-5.0) g/dL Urine Protein Trace H (Negative) 03/30/19 03/31/19 03/31/19 Range/Units 21:08 02:01 05:53 WBC (3.8-10.6) k/uL RBC (3.80-5.40) m/uL Hgb (11.4-16.0) gm/dL Hct (34.0-46.0) % MCHC (31.0-37.0) g/dL RDW (11.5-15.5) % Neutrophils # (1.3-7.7) k/uL Lymphocytes # (1.0-4.8) k/uL Monocytes # (0-1.0) k/uL Sodium (137-145) mmol/L Chloride (98-107) mmol/L Carbon Dioxide (22-30) mmol/L BUN (7-17) mg/dL Creatinine (0.52-1.04) mg/dL Glucose (74-99) mg/dL POC Glucose (mg/dL) 145 H 145 H 128 H (75-99) mg/dL Iron (50-170) ug/dL Ferritin (10.0-291.0) ng/mL AST (14-36) U/L ALT (9-52) U/L Alkaline Phosphatase (38-126) U/L Total Protein (6.3-8.2) g/dL Albumin (3.5-5.0) g/dL Urine Protein (Negative) 03/31/19 03/31/19 03/31/19 Range/Units 06:34 06:34 09:31 WBC 17.6 H (3.8-10.6) k/uL RBC 2.81 L (3.80-5.40) m/uL Hgb 8.3 L (11.4-16.0) gm/dL Hct 27.6 L (34.0-46.0) % MCHC 30.1 L (31.0-37.0) g/dL RDW 19.3 H (11.5-15.5) % Neutrophils # 15.5 H (1.3-7.7) k/uL Lymphocytes # 0.7 L (1.0-4.8) k/uL Monocytes # 1.1 H (0-1.0) k/uL Sodium 132 L (137-145) mmol/L Chloride 90 L (98-107) mmol/L Carbon Dioxide 34 H (22-30) mmol/L BUN 74 H (7-17) mg/dL Creatinine 1.77 H (0.52-1.04) mg/dL Glucose 108 H (74-99) mg/dL POC Glucose (mg/dL) 140 H (75-99) mg/dL Iron (50-170) ug/dL Ferritin (10.0-291.0) ng/mL AST 155 H (14-36) U/L ALT 417 H (9-52) U/L Alkaline Phosphatase 151 H (38-126) U/L Total Protein 5.3 L (6.3-8.2) g/dL Albumin 3.3 L (3.5-5.0) g/dL Urine Protein (Negative) 03/31/19 03/31/19 Range/Units 10:35 12:18 WBC (3.8-10.6) k/uL RBC (3.80-5.40) m/uL Hgb (11.4-16.0) gm/dL Hct (34.0-46.0) % MCHC (31.0-37.0) g/dL RDW (11.5-15.5) % Neutrophils # (1.3-7.7) k/uL Lymphocytes # (1.0-4.8) k/uL Monocytes # (0-1.0) k/uL Sodium (137-145) mmol/L Chloride (98-107) mmol/L Carbon Dioxide (22-30) mmol/L BUN (7-17) mg/dL Creatinine (0.52-1.04) mg/dL Glucose (74-99) mg/dL POC Glucose (mg/dL) 141 H 132 H (75-99) mg/dL Iron (50-170) ug/dL Ferritin (10.0-291.0) ng/mL AST (14-36) U/L ALT (9-52) U/L Alkaline Phosphatase (38-126) U/L Total Protein (6.3-8.2) g/dL Albumin (3.5-5.0) g/dL Urine Protein (Negative) Assessment and Plan Plan: 1. Aortic valve stenosis, with severe aortic valve regurgitation, status post aortic valve replacement and Moderate to severe mitral valve regurgitation, status post mitral valve repair. The patient also underwent left atrial appendage occlusion . The patient was found to have a moderate-sized pericardial effusion and a right-sided pleural effusion and the patient was taken to the operating room and the patient underwent a pericardial window in the right-sided chest tube insertion and electrical cardioversion of atrial fibrillation. She is postop day #0. She is back in the ICU. All of the chest tubes are in place. 2 Single-vessel coronary artery disease, status post coronary artery bypass grafting surgery 1 vessel 3 Decreased LV function with preoperative ejection fraction of 30%, improved following surgery. The repeat echo cardiac exam was done and the patient was found to have improvement in ejection fraction which was up to 40-45% along with that there was a moderate degree of pericardial effusion and this will need to be reevaluated by cardiothoracic surgery. 4 new onset and recurrent atrial fibrillation, post-cardioversion 5. Hypertension 6. Hyperlipidemia 7. Hypothyroid 8. Non-critical carotid stenosis with a 50-70% right ICA stenosis 9. Shortness of breath secondary to above 10. Postoperative Hypotension, resolved 11. Chronic renal failure, baseline creatinine 1.3-1.6, with a component of an acute kidney injury on top of chronic kidney failure. 12. Thrombocytopenia, reactive HIT panel negative, and the plated count is improving 13 abnormal LFTs related to amiodarone, improving Plan Monitor the output from the chest tubes. Keep the patient ICU. Keep the chest tube in place. Initiate amiodarone and monitor the LFTs. We'll continue to follow. Long-term and to coagulation with Eliquis was restarted at 2.5 mg twice a day. Monitor renal function. Monitor LFTs. We'll follow.
[2019-03-31] MEDS: HYDROcodone/APAP 5-325MG 1 EACH TAB PO PRN (17:04)
[2019-03-31 17:12] LABS: Glucose,Whole Blood 130 mg/dL (75-99)
[2019-03-31] MEDS ORDERED: SODIUM CHLORIDE 0.9% 1,000 ML IV SCH (17:30)
--- NOTE | 2019-03-31 18:09 | P.PN ---
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 stenosis and regurgitation , mitral valve regurgitation , recently diagnosed with low ejection fraction at 30% , she had cardiac cath showing significant CAD . pt underwent aortic valve replacement for her sever aortic valve disease with both stenosis and regurgitation, associated with single vessel CABG, her hospital course was complicated with atrial fibrillation , pericardial effusion and right pleural effusion. she is status post 500 removal from her pericardiocentasis and 700 cc removal from her right pleural effusion . Objective - Vital Signs Vital signs: Vital Signs Temp 97.8 F 03/31/19 16:00 Pulse 92 03/31/19 17:00 Resp 17 03/31/19 17:00 BP 91/74 03/31/19 17:00 Pulse Ox 100 03/31/19 17:00 Intake & Output 03/30/19 03/31/19 03/31/19 18:59 06:59 18:59 Intake Total 980 Output Total 2000 1100 Balance -1999 -120 Weight 118.3 kg 117 kg 118 kg Intake: IV 740 Lactated Ringers 1,000 ml 40 @ 20 mls/hr IV .Q24H [facility] Rx#:[id number] Sodium Chloride 0.9% 1, 250 000 ml @ 50 mls/hr IV . Q20H [facility] Rx#:[id number] ceFAZolin 2 gm In Sodium 50 Chloride 0.9% 50 ml @ 100 mls/hr IVPB Q8HR [facility] Rx# :[id number] Oral 240 Output: Chest Tube Drainage 600 Chest Tube Right Pleural/ 600 Mediastinal Urine 2000 300 Estimated Blood Loss 200 Other: Voiding Method Toilet Toilet Bedside Commode Bedside Commode # Voids 4 1 ABP, PAP, CO, CI - Last Documented Arterial Blood Pressure 102/67 Pulmonary Artery Pressure 38/16 Cardiac Output 4.7 Cardiac Index 2.1 - Exam GENERAL: The patient is alert and oriented x3, not in any acute distress. Well developed, well nourished. HEENT: Pupils are round and equally reacting to light. EOMI. No scleral icterus. No conjunctival pallor. Normocephalic, atraumatic. No pharyngeal erythema. No thyromegaly. CARDIOVASCULAR: S1 and S2 present. No murmurs, rubs, or gallops. PULMONARY: Chest is clear to auscultation, no wheezing or crackles. ABDOMEN: Soft, nontender, nondistended, normoactive bowel sounds. No palpable organomegaly. MUSCULOSKELETAL: No joint swelling or deformity. EXTREMITIES: No cyanosis, clubbing, or pedal edema. NEUROLOGICAL: Gross neurological examination did not reveal any focal deficits. SKIN: No rashes. - Labs CBC & Chem 7: 03/31/19 06:34 03/31/19 06:34 Labs: Abnormal Lab Results - Last 24 Hours (Table) 03/30/19 03/30/19 03/31/19 Range/Units 06:04 21:08 02:01 WBC (3.8-10.6) k/uL RBC (3.80-5.40) m/uL Hgb (11.4-16.0) gm/dL Hct (34.0-46.0) % MCHC (31.0-37.0) g/dL RDW (11.5-15.5) % Neutrophils # (1.3-7.7) k/uL Lymphocytes # (1.0-4.8) k/uL Monocytes # (0-1.0) k/uL Sodium (137-145) mmol/L Chloride (98-107) mmol/L Carbon Dioxide (22-30) mmol/L BUN (7-17) mg/dL Creatinine (0.52-1.04) mg/dL Glucose (74-99) mg/dL POC Glucose (mg/dL) 145 H 145 H (75-99) mg/dL Iron 38 L (50-170) ug/dL Ferritin 1297.2 H (10.0-291.0) ng/mL AST (14-36) U/L ALT (9-52) U/L Alkaline Phosphatase (38-126) U/L Total Protein (6.3-8.2) g/dL Albumin (3.5-5.0) g/dL 03/31/19 03/31/19 03/31/19 Range/Units 05:53 06:34 06:34 WBC 17.6 H (3.8-10.6) k/uL RBC 2.81 L (3.80-5.40) m/uL Hgb 8.3 L (11.4-16.0) gm/dL Hct 27.6 L (34.0-46.0) % MCHC 30.1 L (31.0-37.0) g/dL RDW 19.3 H (11.5-15.5) % Neutrophils # 15.5 H (1.3-7.7) k/uL Lymphocytes # 0.7 L (1.0-4.8) k/uL Monocytes # 1.1 H (0-1.0) k/uL Sodium 132 L (137-145) mmol/L Chloride 90 L (98-107) mmol/L Carbon Dioxide 34 H (22-30) mmol/L BUN 74 H (7-17) mg/dL Creatinine 1.77 H (0.52-1.04) mg/dL Glucose 108 H (74-99) mg/dL POC Glucose (mg/dL) 128 H (75-99) mg/dL Iron (50-170) ug/dL Ferritin (10.0-291.0) ng/mL AST 155 H (14-36) U/L ALT 417 H (9-52) U/L Alkaline Phosphatase 151 H (38-126) U/L Total Protein 5.3 L (6.3-8.2) g/dL Albumin 3.3 L (3.5-5.0) g/dL 03/31/19 03/31/19 03/31/19 Range/Units 09:31 10:35 12:18 WBC (3.8-10.6) k/uL RBC (3.80-5.40) m/uL Hgb (11.4-16.0) gm/dL Hct (34.0-46.0) % MCHC (31.0-37.0) g/dL RDW (11.5-15.5) % Neutrophils # (1.3-7.7) k/uL Lymphocytes # (1.0-4.8) k/uL Monocytes # (0-1.0) k/uL Sodium (137-145) mmol/L Chloride (98-107) mmol/L Carbon Dioxide (22-30) mmol/L BUN (7-17) mg/dL Creatinine (0.52-1.04) mg/dL Glucose (74-99) mg/dL POC Glucose (mg/dL) 140 H 141 H 132 H (75-99) mg/dL Iron (50-170) ug/dL Ferritin (10.0-291.0) ng/mL AST (14-36) U/L ALT (9-52) U/L Alkaline Phosphatase (38-126) U/L Total Protein (6.3-8.2) g/dL Albumin (3.5-5.0) g/dL 03/31/19 Range/Units 17:00 WBC (3.8-10.6) k/uL RBC (3.80-5.40) m/uL Hgb (11.4-16.0) gm/dL Hct (34.0-46.0) % MCHC (31.0-37.0) g/dL RDW (11.5-15.5) % Neutrophils # (1.3-7.7) k/uL Lymphocytes # (1.0-4.8) k/uL Monocytes # (0-1.0) k/uL Sodium (137-145) mmol/L Chloride (98-107) mmol/L Carbon Dioxide (22-30) mmol/L BUN (7-17) mg/dL Creatinine (0.52-1.04) mg/dL Glucose (74-99) mg/dL POC Glucose (mg/dL) 130 H (75-99) mg/dL Iron (50-170) ug/dL Ferritin (10.0-291.0) ng/mL AST (14-36) U/L ALT (9-52) U/L Alkaline Phosphatase (38-126) U/L Total Protein (6.3-8.2) g/dL Albumin (3.5-5.0) g/dL Assessment and Plan Assessment: sever aortic valve disease both stenosis and regurgitation. status post aortic valve replacement CAD ,status post CABG pericardial effusion status post pericardiocentasis right pleural effusion status post thoracocentasis atrial fibrillation mitral valve regurgitation HTN HLP GERD Plan: this is a pleasant 79 yo F who presents for aortic valve replacement and CABG, pt remains in the icu, she is been followed closely by pulmonary/critical care team and cardiothoracic surgery team , continue with eliquis , amiodaron and antibiotic. Continue with the same treatment , continue with symptomatic treatment , resume home medication , monitor lytes and vitals, . GI and DVT prophylaxis , further recommendation based upon pt clinical course and progress DVT prophylaxis eliquis GI prophylaxis Pepcid prognosis is guarded
[2019-03-31 20:27] LABS: Glucose,Whole Blood 158 mg/dL (75-99)
[2019-03-31] MEDS: SENNOSIDES-DOCUSATE SODIUM 1 EACH TAB PO SCH (22:09)
[2019-04-01 06:15] LABS: Anisocytosis Slight; Basophils % (A) 0 %; Eosinophils # (A) 0.2 k/uL (0-0.7); Eosinophils % (A) 2 %; HCT 28.5 % (34.0-46.0); HGB 8.7 gm/dL (11.4-16.0); Hypochromasia Marked; Lymphocytes # (A) 0.7 k/uL (1.0-4.8); Lymphocytes % (A) 5 %; MCH 30.5 pg (25.0-35.0); MCHC 30.5 g/dL (31.0-37.0); Macrocytosis Moderate; Mean Platelet Volume 6.9; Monocytes # (A) 1.1 k/uL (0-1.0); Monocytes % (A) 7 %; Neutrophils # (A) 12.5 k/uL (1.3-7.7); Neutrophils % (A) 84 %; Platelet Count 202 k/uL (150-450); Poikilocytosis Slight; RBC 2.85 m/uL (3.80-5.40); RDW 19.3 % (11.5-15.5); WBC 14.9 k/uL (3.8-10.6)
[2019-04-01 06:39] LABS: Albumin 2.8 g/dL (3.5-5.0); Calcium 8.7 mg/dL (8.4-10.2); Potassium 4.6 mmol/L (3.5-5.1); Total Bilirubin 0.8 mg/dL (0.2-1.3); Total Protein 4.7 g/dL (6.3-8.2)
[2019-04-01] MEDS: FERROUS SULFATE 325 MG TAB PO SCH ×2 (06:42→17:13)
[2019-04-01] MEDS: LEVOTHYROXINE 50 MCG TAB PO SCH (06:42)
[2019-04-01] MEDS: ASCORBIC ACID 500 MG TAB PO SCH ×2 (06:42→17:13)
[2019-04-01] MEDS: INSULIN ASPART (NovoLOG) 100 UNIT/ML VIAL SQ SCH ×4 (06:57→21:01)
[2019-04-01 07:07] LABS: Glucose,Whole Blood 111 mg/dL (75-99)
--- NOTE | 2019-04-01 07:26 | XR ---
EXAMINATION TYPE: XR chest 1V portable DATE OF EXAM: 04/01/2019 HISTORY: Post Operative Cardiac Surgery. REFERENCE: Previous study dated 03/31/2019. FINDINGS: There has been a midline sternotomy. The heart is enlarged. There continues be widening of the vascular pedicle. A right pleural drain is in place. Pulmonary vasculature is returned to normal. There is some left basilar airspace disease and a lesser amount of right basilar airspace disease. T here are small, bilateral effusions. IMPRESSION: 1. CARDIOMEGALY. 2. BIBASILAR INFILTRATES. 3. SMALL, BILATERAL EFFUSIONS. 4. WIDENING OF THE VASCULAR PEDICLE. THIS IS LIKELY DUE TO VASCULAR ECTASIA.
[2019-04-01] MEDS ORDERED: SODIUM CHLORIDE 0.9% 500 ML 250 ML IV ONE (07:40)
[2019-04-01] MEDS ORDERED: METOPROLOL TARTRATE 25 MG TAB PO SCH (09:00)
[2019-04-01] MEDS: IPRATROPIUM-ALBUTEROL 3 ML NEB INHALATION SCH ×4 (09:06→19:24)
[2019-04-01] MEDS: SYMBICORT 160-4.5 MCG INHALER INHALATION SCH ×2 (09:06→19:24)
[2019-04-01] MEDS: AMIODARONE 200 MG TAB PO SCH ×2 (09:10→21:01)
[2019-04-01] MEDS: PANTOPRAZOLE 40 MG TABLET PO SCH (09:10)
[2019-04-01] MEDS: APIXABAN 2.5 MG TABLET PO SCH ×2 (09:10→21:01)
[2019-04-01] MEDS: CHOLECALCIFEROL 1,000 UNIT TAB PO SCH (09:10)
[2019-04-01] MEDS: ASPIRIN 81 MG PO SCH (09:10)
--- NOTE | 2019-04-01 09:11 | P.PN ---
Subjective Progress Note Date: 04/01/19 Seen and examined for the follow-up of acute kidney injury. Had pericardial window yesterday. Sitting in the chair. Denies any chest pain shortness of breath or palpitations. Admitting making good amount of urine. 2 L of urine output in the last 24 hours. Objective - Vital Signs Vital signs: Vital Signs Temp 98.4 F 04/01/19 04:00 Pulse 97 04/01/19 07:00 Resp 11 L 04/01/19 07:00 BP 85/58 04/01/19 07:00 Pulse Ox 86 L 04/01/19 07:00 Intake & Output 03/31/19 04/01/19 04/01/19 18:59 06:59 18:59 Intake Total 1030 1120 Output Total 1140 990 Balance -110 130 Weight 118 kg 118.6 kg Intake: IV 790 640 Lactated Ringers 1,000 ml 40 @ 20 mls/hr IV .Q24H [facility] Rx#:[id number] Sodium Chloride 0.9% 1, 300 540 000 ml @ 50 mls/hr IV . Q20H [facility] Rx#:[id number] ceFAZolin 2 gm In Sodium 50 100 Chloride 0.9% 50 ml @ 100 mls/hr IVPB Q8HR [facility] Rx# :[id number] Oral 240 480 Output: Chest Tube Drainage 640 390 Chest Tube Right Pleural/ 640 390 Mediastinal Urine 300 600 Estimated Blood Loss 200 Other: Voiding Method Toilet Toilet Bedside Commode Bedside Commode ABP, PAP, CO, CI - Last Documented Arterial Blood Pressure 102/67 Pulmonary Artery Pressure 38/16 Cardiac Output 4.7 Cardiac Index 2.1 - Exam No acute distress S1-S2 heard Basal crackles Edema - Labs CBC & Chem 7: 04/01/19 05:11 04/01/19 05:11 Labs: Abnormal Lab Results - Last 24 Hours (Table) 03/31/19 03/31/19 03/31/19 Range/Units 09:31 10:35 12:18 WBC (3.8-10.6) k/uL RBC (3.80-5.40) m/uL Hgb (11.4-16.0) gm/dL Hct (34.0-46.0) % MCHC (31.0-37.0) g/dL RDW (11.5-15.5) % Neutrophils # (1.3-7.7) k/uL Lymphocytes # (1.0-4.8) k/uL Monocytes # (0-1.0) k/uL Sodium (137-145) mmol/L Chloride (98-107) mmol/L Carbon Dioxide (22-30) mmol/L BUN (7-17) mg/dL Creatinine (0.52-1.04) mg/dL Glucose (74-99) mg/dL POC Glucose (mg/dL) 140 H 141 H 132 H (75-99) mg/dL AST (14-36) U/L ALT (9-52) U/L Total Protein (6.3-8.2) g/dL Albumin (3.5-5.0) g/dL 03/31/19 03/31/19 04/01/19 Range/Units 17:00 20:16 05:11 WBC 14.9 H (3.8-10.6) k/uL RBC 2.85 L (3.80-5.40) m/uL Hgb 8.7 L (11.4-16.0) gm/dL Hct 28.5 L (34.0-46.0) % MCHC 30.5 L (31.0-37.0) g/dL RDW 19.3 H (11.5-15.5) % Neutrophils # 12.5 H (1.3-7.7) k/uL Lymphocytes # 0.7 L (1.0-4.8) k/uL Monocytes # 1.1 H (0-1.0) k/uL Sodium (137-145) mmol/L Chloride (98-107) mmol/L Carbon Dioxide (22-30) mmol/L BUN (7-17) mg/dL Creatinine (0.52-1.04) mg/dL Glucose (74-99) mg/dL POC Glucose (mg/dL) 130 H 158 H (75-99) mg/dL AST (14-36) U/L ALT (9-52) U/L Total Protein (6.3-8.2) g/dL Albumin (3.5-5.0) g/dL 04/01/19 04/01/19 Range/Units 05:11 06:56 WBC (3.8-10.6) k/uL RBC (3.80-5.40) m/uL Hgb (11.4-16.0) gm/dL Hct (34.0-46.0) % MCHC (31.0-37.0) g/dL RDW (11.5-15.5) % Neutrophils # (1.3-7.7) k/uL Lymphocytes # (1.0-4.8) k/uL Monocytes # (0-1.0) k/uL Sodium 132 L (137-145) mmol/L Chloride 93 L (98-107) mmol/L Carbon Dioxide 33 H (22-30) mmol/L BUN 71 H (7-17) mg/dL Creatinine 1.54 H (0.52-1.04) mg/dL Glucose 102 H (74-99) mg/dL POC Glucose (mg/dL) 111 H (75-99) mg/dL AST 89 H (14-36) U/L ALT 251 H (9-52) U/L Total Protein 4.7 L (6.3-8.2) g/dL Albumin 2.8 L (3.5-5.0) g/dL Assessment and Plan Assessment: #1 nonoliguric acute kidney injury secondary to ischemic ATN. Peak creatinine of 2.06 MG per DL improving. #2 status post CABG/mitral valve repair and aortic valve placement and pericardial window yesterday. #3 systolic CHF with the EF of 40% #4 chronic kidney disease stage III secondary to nephrosclerosis with a baseline creatinine of 1.1-1.5 MG per DL. #5 edema #6 hypervolemic hyponatremia #7 anemia multifactorial Plan: #1 add Lasix 40 mg IV twice a day. #2 creatinine improving anticipate to be back to baseline by tomorrow. #3 strict ins and outs. #4 avoid nephrotoxic agents and hypotensive episodes. #5 low normal blood pressures. Add low-dose midodrine for hemodynamic support.
[2019-04-01] MEDS ORDERED: FUROSEMIDE 10 MG/ML 4 ML VIAL IV SCH (09:15)
[2019-04-01] MEDS ORDERED: MIDODRINE 5 MG TAB PO SCH (09:15)
[2019-04-01] MEDS ORDERED: DEXTROSE 5% IN WATER 100 ML with AMIODARONE 150 MG IV ONE (09:33)
[2019-04-01] MEDS ORDERED: ALBUMIN HUMAN 5% 250 ML in EMPTY BAG 1 BAG IVPB STA (09:34)
--- NOTE | 2019-04-01 10:35 | P.PN ---
Subjective Progress Note Date: 04/01/19 Principal diagnosis: Severe aortic valve stenosis, moderate to severe mitral valve regurgitation, single-vessel coronary artery disease, and a decreased LV function, chronic systolic heart failure with a preoperative ejection fraction of 30%. History of hypertension, hyperlipidemia, hypothyroid, osteoarthritis, chronic renal failure with baseline creatinine 1.3-1.6, right internal carotid artery stenosis 50-70%, previous tobacco dependance with preoperative FEV1 93% of predicted. POD #13 aortic valve replacement with a #23 mm Avalus bioprosthetic Medtronic aortic valve, mitral valve repair with a #30 mm Carbomedics AnnuloFlex band. Coronary artery bypass grafting 1 vessel with a reverse greater saphenous vein off the aorta to the circumflex coronary artery and a clip ligation of the left atrial appendage with a 35 mm Atriclip. Endoscopic harvesting of the left gr eater saphenous vein. Intraoperative transesophageal echocardiogram. Acute postoperative bleeding, an unexpected outcome. Reactive thrombocytopenia, expected, resolved. POD #13 Emergent re-exploration of the chest, evacuation of clots and control of bleed. Placement of intra-aortic balloon pump. Post operative paroxysmal atrial fibrillation, unexpected. Transaminitis, unexpected. Postoperative pericardial effusion, an unexpected outcome. POD #1 pericardial window, placement of right pleural chest tube and synchronized cardioversion. Postoperative right pleural effusion, an unexpected outcome. The patient is sitting up to bedside chair in the intensive care unit. She is in no acute distress. Denies any complaints of pain or shortness of breath this time. She reports that she feels much improved today after having the fluid removed from around her heart yesterday. Oxygen saturation are 94% on room air. Bedside telemetry is showing atrial fibrillation heart rate 96. She reports she continues to urinate without difficulty and was up to the bathroom a couple times throughout the night. Her blood pressure this morning is 91/53 and she has received 1 250 mL bolus of 0.9 normal saline. She remains hemodynamically stable and is currently on no inotropic or pressor support. Subxiphoid and right pleural chest tube remained in place to low continuous wall suction -20 cm H2O. No air leak is present. Draining thin serosanguineous drainage. She is achieving 1000 mL on her incentive spirometry. She also reports that she is in good spirits today and is ready to go for more walks in the intensive care unit hallway today. Objective - Vital Signs Vital signs: Vital Signs Temp 98.6 F 04/01/19 08:00 Pulse 104 H 04/01/19 09:18 Resp 22 04/01/19 09:00 BP 88/70 04/01/19 09:00 Pulse Ox 99 04/01/19 09:00 Intake & Output 03/31/19 04/01/19 04/01/19 18:59 06:59 18:59 Intake Total 1030 1120 300 Output Total 1140 990 100 Balance -110 130 200 Weight 118 kg 118.6 kg Intake: IV 790 640 300 Lactated Ringers 1,000 ml 40 @ 20 mls/hr IV .Q24H [facility] Rx#:[id number] Sodium Chloride 0.9% 1, 300 540 250 000 ml @ 50 mls/hr IV . Q20H [facility] Rx#:[id number] ceFAZolin 2 gm In Sodium 50 100 50 Chloride 0.9% 50 ml @ 100 mls/hr IVPB Q8HR [facility] Rx# :[id number] Oral 240 480 Output: Chest Tube Drainage 640 390 100 Chest Tube Right Pleural/ 640 390 100 Mediastinal Urine 300 600 0 Estimated Blood Loss 200 Other: Voiding Method Toilet Toilet Toilet Bedside Commode Bedside Commode Bedside Commode ABP, PAP, CO, CI - Last Documented Arterial Blood Pressure 102/67 Pulmonary Artery Pressure 38/16 Cardiac Output 4.7 Cardiac Index 2.1 - Constitutional General appearance: Present: cooperative, no acute distress, obese - Respiratory Details: Lung sounds with few scattered crackles to her right lower lobe. Respirations are symmetrical and nonlabored. Oxygen saturation are 94% on room air. Achieving 1000 mL on her incentive spirometry. Subxiphoid and right pleural chest tube remained in place to low continuous wall suction -20 cm H2O. No air leak is present. Draining thin serosanguineous drainage. - Cardiovascular Details: Irregular rhythm with controlled rate. S1 and S2 present, negative for S3, gallop or murmur. Sternum is stable. Bedside telemetry showing atrial fibrillation heart rate 96. +1 edema to her bilateral lower extremity Thaddeus. Knee-high LAUREL hose and sequential compression devices in place to bilateral lower extremities. Heart hugger is in place and she is demonstrating a ppropriate use. - Gastrointestinal Gastrointestinal Comment(s): Abdomen is soft, nontender and nondistended. Active bowel sounds all 4 abdominal quadrants. No guarding or rigidity. No organomegaly appreciated. Tolerating oral intake. - Genitourinary Genitourinary Comment(s): Voiding clear yellow urine. - Integumentary Integumentary Comment(s): Skin is warm and dry. No clubbing or cyanosis is present. No rash or abnormal dentition is present. Midline sternal incision is clean, dry and approximated. No drainage or redness is present. Left lower extremity EVH site is clean, dry and approximated. No drainage or redness present. Dressings dry and intact to her subxiphoid and right pleural chest tube sites. - Neurologic Neurologic: Present: CNII-XII intact - Musculoskeletal Musculoskeletal: Present: gait normal, generalized weakness, strength equal bilaterally - Psychiatric Psychiatric: Present: A&O x's 3, appropriate affect, intact judgment & insight - Allied health notes Allied health notes reviewed: nursing - Labs CBC & Chem 7: 04/01/19 05:11 04/01/19 05:11 Labs: Abnormal Lab Results - Last 24 Hours (Table) 03/31/19 03/31/19 03/31/19 Range/Units 10:35 12:18 17:00 WBC (3.8-10.6) k/uL RBC (3.80-5.40) m/uL Hgb (11.4-16.0) gm/dL Hct (34.0-46.0) % MCHC (31.0-37.0) g/dL RDW (11.5-15.5) % Neutrophils # (1.3-7.7) k/uL Lymphocytes # (1.0-4.8) k/uL Monocytes # (0-1.0) k/uL Sodium (137-145) mmol/L Chloride (98-107) mmol/L Carbon Dioxide (22-30) mmol/L BUN (7-17) mg/dL Creatinine (0.52-1.04) mg/dL Glucose (74-99) mg/dL POC Glucose (mg/dL) 141 H 132 H 130 H (75-99) mg/dL AST (14-36) U/L ALT (9-52) U/L Total Protein (6.3-8.2) g/dL Albumin (3.5-5.0) g/dL 03/31/19 04/01/19 04/01/19 Range/Units 20:16 05:11 05:11 WBC 14.9 H (3.8-10.6) k/uL RBC 2.85 L (3.80-5.40) m/uL Hgb 8.7 L (11.4-16.0) gm/dL Hct 28.5 L (34.0-46.0) % MCHC 30.5 L (31.0-37.0) g/dL RDW 19.3 H (11.5-15.5) % Neutrophils # 12.5 H (1.3-7.7) k/uL Lymphocytes # 0.7 L (1.0-4.8) k/uL Monocytes # 1.1 H (0-1.0) k/uL Sodium 132 L (137-145) mmol/L Chloride 93 L (98-107) mmol/L Carbon Dioxide 33 H (22-30) mmol/L BUN 71 H (7-17) mg/dL Creatinine 1.54 H (0.52-1.04) mg/dL Glucose 102 H (74-99) mg/dL POC Glucose (mg/dL) 158 H (75-99) mg/dL AST 89 H (14-36) U/L ALT 251 H (9-52) U/L Total Protein 4.7 L (6.3-8.2) g/dL Albumin 2.8 L (3.5-5.0) g/dL 04/01/19 Range/Units 06:56 WBC (3.8-10.6) k/uL RBC (3.80-5.40) m/uL Hgb (11.4-16.0) gm/dL Hct (34.0-46.0) % MCHC (31.0-37.0) g/dL RDW (11.5-15.5) % Neutrophils # (1.3-7.7) k/uL Lymphocytes # (1.0-4.8) k/uL Monocytes # (0-1.0) k/uL Sodium (137-145) mmol/L Chloride (98-107) mmol/L Carbon Dioxide (22-30) mmol/L BUN (7-17) mg/dL Creatinine (0.52-1.04) mg/dL Glucose (74-99) mg/dL POC Glucose (mg/dL) 111 H (75-99) mg/dL AST (14-36) U/L ALT (9-52) U/L Total Protein (6.3-8.2) g/dL Albumin (3.5-5.0) g/dL - Imaging and Cardiology Chest x-ray: report reviewed, image reviewed Assessment and Plan Assessment: 1. Aortic valve stenosis, with severe aortic valve regurgitation, status post aortic valve replacement 2. Moderate to severe mitral valve regurgitation, status post mitral valve repair 3. Single-vessel coronary artery disease, status post coronary artery bypass grafting surgery 1 vessel 4. Systolic congestive heart failure, Decreased LV function with preoperative ejection fraction of 30% 5. Hypertension 6. Hyperlipidemia 7. Hypothyroid 8. Non-critical carotid stenosis with a 50-70% right ICA stenosis 9. Acute postoperative bleeding, an unexpected outcome 10. Postoperative Hypotension, resolved 11. Chronic renal failure, baseline creatinine 1.3-1.6 12. Thrombocytopenia, reactive HIT panel negative 13. Postoperative paroxysmal atrial fibrillation, status post clip ligation of the left atrial appendage, status post cardioversion 14. Transaminitis 15. Osteoarthritis 16. Postoperative hyponatremia, unexpected 17. Postoperative pericardial effusion, an unexpected outcome, status post pericardial window 18. Postoperative right pleural effusion, an unexpected outcome, status post placement of right pleural chest tube Plan: 1. Continue to maximize medical therapy with aspirin and beta heriberto. We will decrease her metoprolol tartrate 25 mg by mouth twice a day as her blood pressure is 91/53 millimeters mercury currently. 2. Encourage use of her incentive spirometry every hour while awake. 3. Continue to hold statin. We will restart her statin once her liver enzymes have normalized. 4. Bronchodilators management per pulmonary medicine. continue Symbicort. 5. Monitor daily labs and chest x-rays. Replace electrolytes per protocol. 6. GI and DVT prophylaxis. 7. Pain control current medication regimen. No Toradol due to her elevated BUN and creatinine. 8. Avoid nephrotoxic agents. 9. Continue Iron, vitamin C. hemoglobin remains 8.7 this a.m. 10. Continue daily weights. Weight today is 118.5 kg. 11. Insulin management per primary care service. 12. Increase activity as tolerated. Physical therapy/occupational therapy/cardiac rehab following. 13. Restart Eliquis 2.5 mg by mouth twice a day today . 14. Discharge planning in progress. Anticipate discharge to inpatient rehab once medically stable. 15. Separate right pleural and subxiphoid chest tubes. 16. Give 0.9% normal saline to 50 mL bolus 1 now for blood pressure 91/53. 17. Give amiodarone 150 mg IV bolus 1 now, continue amiodarone 200 mg by mouth twice a day for atrial fibrillation prophylaxis. 18. More recommendations to follow based on patient's clinical course. Time with Patient: Greater than 30
--- NOTE | 2019-04-01 10:57 | PN ---
PROGRESS NOTE Viviana is a 79-year-old lady who is status post aortic valve replacement and mitral valve repair, has renal insufficiency, developed pericardial effusion and underwent window, had pleural effusion that was drained. She is doing much better. Her breathing has improved. Her physical activity has improved and renal functions are getting better. PHYSICAL EXAM: Heart rate is 90 beats per minute. Blood pressure is 88/70, respirations 18. Chest exam reveals good air entry bilaterally. Heart exam reveals first and second heart sounds. No gallop. Exam of extremities reveals 1+ edema. Peripheral pulses are felt. Labs show a hemoglobin of 8.7. Potassium is 4.6. Creatinine is 1.5. ASSESSMENT: 1. Pericardial effusion status post window. 2. Status post aortic valve replacement. 3. Chronic atrial fibrillation. PLAN: Patient is back on amiodarone, beta blockers and Eliquis, that she is going to continue. She has elevated liver enzymes which have improved and this is probably related to hypotension. MMODL / IJN: [id number] /
[2019-04-01 12:02] LABS: Glucose,Whole Blood 144 mg/dL (75-99)
--- NOTE | 2019-04-01 12:48 | P.PN ---
Subjective Progress Note Date: 04/01/19 This is a 79-year-old white female patient of Dr. Mati Vale, with a known history of aortic stenosis and regurgitation, hypertension, hyperlipidemia, hypothyroidism, moderate noncritical carotid artery stenosis, who was found to have significant decrease in LV function based on her echocardiogram in December 2018 with systolic/diastolic dysfunction. Recent underwent transesophageal echocardiogram on 02/05/2019 showing sclerotic and calcific aortic valve with severe aortic stenosis with area of the aortic valve calculated in the range of 1-1.1. There was moderate degree of mitral regurgitation, severely impaired left ventricle systolic function with estimated ejection fraction of 30%, and no evidence of thrombus in the left atrial appendage. Catheterization showed diffusely diseased LAD distally, RCA was dominant and disease free, circumflex had a 60-70% mid lesion. Yesterday on 03/19/2019 patient underwent aortic valve replacement with a #23 mm a villous hypostatic Medtronic aortic valve, mitral valve repair with a #30 mm CarboMedics annular flex band, and single-vessel coronary artery bypass grafting with reverse SVG to the circumflex and ligation of the left atrial appendage with a #35 mm Atriclip. The patient is seen today 03/27/2019 in follow-up on the selective care unit. She is currently sitting up in a chair at the bedside. Awake and alert in no acute distress. She is currently maintaining good O2 saturations in the upper 90s on 2 L/m per nasal cannula. She's been afebrile. Hemodynamically stable. White count 14.5. Hemoglobin 7.6. Creatinine 1.83. AST 107. ALT 319. She is status post 6 units of packed red blood cells. She remains on amiodarone. Anticoagulated with Eliquis. Continued on bronchodilators. She is working well with the incentive spirometer. Needs increased encouragement. Today's chest x- ray was reviewed. No plans for thoracentesis at this point. The patient is seen today 03/28/2019 in follow-up on the selective care unit. Currently sitting up in a chair at the bedside. Awake and alert in no acute distress. Chest x-ray reveals cardiomegaly, possible interstitial edema with pulmonary venous hypertension. Some small basilar effusions/atelectasis. Somewhat more fatigued today as compared to yesterday. Pale. White count 14.8. Hemoglobin 7.4. Creatinine 2.06. AST 553. ALT 627. On 03/29/2019 the patient is looking slightly better. Breathing easier. Pulling approximately 1100 on the incentive spirometer. No cough or sputum production. We'll doing percussion and vibration to the right lower chest area. Remains in sinus rhythm. Off amiodarone. LFTs are improving. Creatinine is at 1.84 which is lower than yesterday. Sodium level is at 129. No new complaints otherwise for now. No chest pain. No palpitation. Hemoglobin stable at 8.0 On 03/30/2019 patient is still short of breath. Despite her being on room air oxygen, the patient is still struggling with her breathing and she short of breath. She is using incentive spirometer. A repeat echo cardiac exam was done and the patient was found to have moderate amount of pericardial effusion. Also, she is back to atrial fibrillation. LFTs are improving. The white cell count is at 16.8. Hemoglobin is at 8.5. Renal function shows a creatinine of 1.8. No other significant events overnight. The plan is for this patient to be ventilated by cardiac thoracic surgery in consultation for a cardiocentesis versus pericardial window. As for the right lung finding, the patient continues to diminished breath on the right lung base due to a combination of atelectasis/effusion. The echocardiogram showed an ejection fraction of 40-45%. The left ventricle was mildly dilated. There is mild to moderate impairment of the ejection fraction. On 03/31/2019 the patient is again postop. The patient underwent a pericardial window. The patient also underwent a right-sided chest tube insertion. The patient underwent cardioversion and operating room. There was a total of 700 mL of pleural fluid drained from the right lung and there was another 400 mL of pericardial effusion that was drained. Initially the patient had a successful cardioversion to sinus rhythm. After arriving to the ICU the patient went back into atrial fibrillation. The patient was given a bolus of amiodarone 150 mg and she'll be maintained on oral amiodarone. Chest tube is in place. Pericardial tube is in place. She is hemodynamically stable. She is not having any significant shortness of breath. Resting comfortably in bed. The LFTs are improving still. The creatinine is also improving is down to 1.7. No other significant events since the surgery and the patient is resting comfortably in bed. Chest x-ray was noted. On 04/01/2019 I'm seeing the patient for a follow-up. The patient intensive care unit. The pleural chest tube in the cardiac chest tube will be . The output from the chest tubes were noted. This patient is using the incentive spirometer. The patient is pulling up to thousand. Pulse ox is 94% on room air. Cardiac rhythm is still atrial fibrillation and the rate is controlled for now. The patient was given oral amiodarone. The patient had a lower blood pressure earlier this morning and the patient was given a bolus of normal saline. She is producing adequate amount of urine output. The chest tubes are all in place. There is no evidence of any air leak. Output is serosanguineous. No altered mentation. No other significant events overnight. The chest x-ray from today showed cardiomegaly and bibasilar infiltrates and small effusions. There is also widening of the vascular pedicle this is related to vascular ectasia. Objective - Vital Signs Vital signs: Vital Signs Temp 98.6 F 04/01/19 08:00 Pulse 92 04/01/19 12:01 Resp 23 04/01/19 11:00 BP 103/63 04/01/19 11:00 Pulse Ox 95 04/01/19 11:00 Intake & Output 03/31/19 04/01/19 04/01/19 18:59 06:59 18:59 Intake Total 1030 1120 300 Output Total 1140 990 420 Balance -110 130 -120 Weight 118 kg 118.6 kg Intake: IV 790 640 300 Lactated Ringers 1,000 ml 40 @ 20 mls/hr IV .Q24H [facility] Rx#:[id number] Sodium Chloride 0.9% 1, 300 540 250 000 ml @ 50 mls/hr IV . Q20H [facility] Rx#:[id number] ceFAZolin 2 gm In Sodium 50 100 50 Chloride 0.9% 50 ml @ 100 mls/hr IVPB Q8HR [facility] Rx# :[id number] Oral 240 480 Output: Chest Tube Drainage 640 390 220 Chest Tube Right Pleural/ 640 390 170 Mediastinal Mediastinal 0 Right Pleural 50 Urine 300 600 200 Estimated Blood Loss 200 Other: Voiding Method Toilet Toilet Toilet Bedside Commode Bedside Commode Bedside Commode ABP, PAP, CO, CI - Last Documented Arterial Blood Pressure 102/67 Pulmonary Artery Pressure 38/16 Cardiac Output 4.7 Cardiac Index 2.1 - Exam GENERAL EXAM: Alert, oriented 79-year-old white female patient, on 2 L in no acute distress. HEAD: Normocephalic/atraumatic. EYES: Normal reaction of pupils, equal size. Conjunctiva pink, sclera white. NOSE: Clear with pink turbinates. THROAT: No erythema or exudates. NECK: No masses, no JVD, no thyroid enlargement, no adenopathy. CHEST: No chest wall deformity. Symmetrical expansion. Midsternal incision is clean dry and intact, covered with surgical dressing. LUNGS: There is improved aeration in the right lung base as the patient had a c hest tube insertion. There are also bibasilar crackles most on the right compared to the left. CVS: Irregular rhythm secondary to underlying atrial fibrillation. The patient has a irregular S1 and S2, no gallops, no murmurs, no rubs. The sternum stable clean and intact. There is a pericardial tube just below the sternum which is in place. ABDOMEN: Soft, nontender. No hepatosplenomegaly, normal bowel sounds, no guarding or rigidity. EXTREMITIES: No clubbing, no edema, no cyanosis, 2+ pulses and upper and lower extremities. MUSCULOSKELETAL: Muscle strength and tone normal. SPINE: No scoliosis or deformity SKIN: No rashes CENTRAL NERVOUS SYSTEM: Awake, and alert, oriented times three. No focal deficits, tone is normal in all 4 extremities. - Labs CBC & Chem 7: 04/01/19 05:11 04/01/19 05:11 Labs: Abnormal Lab Results - Last 24 Hours (Table) 03/31/19 03/31/19 04/01/19 Range/Units 17:00 20:16 05:11 WBC 14.9 H (3.8-10.6) k/uL RBC 2.85 L (3.80-5.40) m/uL Hgb 8.7 L (11.4-16.0) gm/dL Hct 28.5 L (34.0-46.0) % MCHC 30.5 L (31.0-37.0) g/dL RDW 19.3 H (11.5-15.5) % Neutrophils # 12.5 H (1.3-7.7) k/uL Lymphocytes # 0.7 L (1.0-4.8) k/uL Monocytes # 1.1 H (0-1.0) k/uL Sodium (137-145) mmol/L Chloride (98-107) mmol/L Carbon Dioxide (22-30) mmol/L BUN (7-17) mg/dL Creatinine (0.52-1.04) mg/dL Glucose (74-99) mg/dL POC Glucose (mg/dL) 130 H 158 H (75-99) mg/dL AST (14-36) U/L ALT (9-52) U/L Total Protein (6.3-8.2) g/dL Albumin (3.5-5.0) g/dL 04/01/19 04/01/19 04/01/19 Range/Units 05:11 06:56 11:50 WBC (3.8-10.6) k/uL RBC (3.80-5.40) m/uL Hgb (11.4-16.0) gm/dL Hct (34.0-46.0) % MCHC (31.0-37.0) g/dL RDW (11.5-15.5) % Neutrophils # (1.3-7.7) k/uL Lymphocytes # (1.0-4.8) k/uL Monocytes # (0-1.0) k/uL Sodium 132 L (137-145) mmol/L Chloride 93 L (98-107) mmol/L Carbon Dioxide 33 H (22-30) mmol/L BUN 71 H (7-17) mg/dL Creatinine 1.54 H (0.52-1.04) mg/dL Glucose 102 H (74-99) mg/dL POC Glucose (mg/dL) 111 H 144 H (75-99) mg/dL AST 89 H (14-36) U/L ALT 251 H (9-52) U/L Total Protein 4.7 L (6.3-8.2) g/dL Albumin 2.8 L (3.5-5.0) g/dL Assessment and Plan Plan: 1. Aortic valve stenosis, with severe aortic valve regurgitation, status post aortic valve replacement and Moderate to severe mitral valve regurgitation, status post mitral valve repair. The patient also underwent left atrial appendage occlusion . The patient was found to have a moderate-sized pericardial effusion and a right-sided pleural effusion and the patient was taken to the operating room and the patient underwent a pericardial window in the right-sided chest tube insertion and electrical cardioversion of atrial fibrillation. She is postop day #1. She is back in the ICU. All of the chest tubes are in place. Patient is doing well. The chest tube will be a nd output will be monitored. She is less short of breath following this current intervention. 2 Single-vessel coronary artery disease, status post coronary artery bypass grafting surgery 1 vessel 3 Decreased LV function with preoperative ejection fraction of 30%, improved following surgery. The repeat echo cardiac exam was done and the patient was found to have improvement in ejection fraction which was up to 40-45% along with that there was a moderate degree of pericardial effusion and this will need to be reevaluated by cardiothoracic surgery. 4 new onset and recurrent atrial fibrillation, post-cardioversion, currently on amiodarone and the rate is controlled for now and the patient is on anticoagulants. 5. Hypertension 6. Hyperlipidemia 7. Hypothyroid 8. Non-critical carotid stenosis with a 50-70% right ICA stenosis 9. Shortness of breath secondary to above 10. Postoperative Hypotension, resolved 11. Chronic renal failure, baseline creatinine 1.3-1.6, with a component of an acute kidney injury on top of chronic kidney failure. The acute component has recovered and the patient's creatinine is down to 1.5 12. Thrombocytopenia, reactive HIT panel negative, and the plated count is improving 13 abnormal LFTs related to amiodarone, improving Plan The patient is doing well. We are going to monitor the output from the chest tube and separate the chest tubes. Continue using incentive spirometer. Adequate pain control. Renal function is improved. Hemoglobin stable at 8.7. Insulin management. Restart Eliquis. Separate chest tubes. A bolus of IV fluids was given for a lower blood pressure. The patient is also on oral amiodarone. We'll decrease the metoprolol to 25 mg twice a day. We'll continue to follow.
[2019-04-01] MEDS: HYDROcodone/APAP 5-325MG 1 EACH TAB PO PRN (14:01)
[2019-04-01] MEDS: METOPROLOL TARTRATE 25 MG TAB PO SCH ×2 (15:36→21:01)
--- NOTE | 2019-04-01 15:37 | P.PN ---
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 stenosis and regurgitation , mitral valve regurgitation , recently diagnosed with low ejection fraction at 30% , she had cardiac cath showing significant CAD . pt underwent aortic valve replacement for her sever aortic valve disease with both stenosis and regurgitation, associated with single vessel CABG, her hospital course was complicated with atrial fibrillation , pericardial effusion and right pleural effusion. she is status post 500 removal from her pericardiocentasis and 700 cc removal from her right pleural effusion . 04/01/2019 She is in mild to moderate respiratory distress but she is improving. Chest tubes still in a Place. She is was a bit tachycardic today around 110s, a bolus dose of amiodarone is a provided, as well as oral amiodarone. Also to continue with beta heriberto and Eliquis. Heart rate is better controlled now. He also received protamine and a bolus of normal saline for low blood pressure. Her white cell count is improving down to 14.9 K, hemoglobin preoperative creatinine is improving down to 1.5. Sugar is controlled and liver enzymes are coming down. Bilirubin is within normal limits as 0.8. Cardiology and pulmonary team following the case closely. Objective - Vital Signs Vital signs: Vital Signs Temp 98.3 F 04/01/19 12:00 Pulse 117 H 04/01/19 15:00 Resp 19 04/01/19 15:00 BP 107/75 04/01/19 15:00 Pulse Ox 95 04/01/19 15:00 Intake & Output 03/31/19 04/01/19 04/01/19 18:59 06:59 18:59 Intake Total 1030 1120 300 Output Total 1140 990 496 Balance -110 130 -196 Weight 118 kg 118.6 kg Intake: IV 790 640 300 Lactated Ringers 1,000 ml 40 @ 20 mls/hr IV .Q24H [facility] Rx#:[id number] Sodium Chloride 0.9% 1, 300 540 250 000 ml @ 50 mls/hr IV . Q20H [facility] Rx#:[id number] ceFAZolin 2 gm In Sodium 50 100 50 Chloride 0.9% 50 ml @ 100 mls/hr IVPB Q8HR [facility] Rx# :[id number] Oral 240 480 Output: Chest Tube Drainage 640 390 296 Chest Tube Right Pleural/ 640 390 170 Mediastinal Mediastinal 20 Right Pleural 106 Urine 300 600 200 Estimated Blood Loss 200 Other: Voiding Method Toilet Toilet Toilet Bedside Commode Bedside Commode Bedside Commode ABP, PAP, CO, CI - Last Documented Arterial Blood Pressure 102/67 Pulmonary Artery Pressure 38/16 Cardiac Output 4.7 Cardiac Index 2.1 - Exam GENERAL: The patient is alert and oriented x3, not in any acute distress. Well developed, well nourished. HEENT: Pupils are round and equally reacting to light. EOMI. No scleral icterus. No conjunctival pallor. Normocephalic, atraumatic. No pharyngeal erythema. No thyromegaly. CARDIOVASCULAR: S1 and S2 present. No murmurs, rubs, or gallops. PULMONARY: Chest is clear to auscultation, no wheezing or crackles. ABDOMEN: Soft, nontender, nondistended, normoactive bowel sounds. No palpable organomegaly. MUSCULOSKELETAL: No joint swelling or deformity. EXTREMITIES: No cyanosis, clubbing, or pedal edema. NEUROLOGICAL: Gross neurological examination did not reveal any focal deficits. SKIN: No rashes. - Labs CBC & Chem 7: 04/01/19 05:11 04/01/19 05:11 Labs: Abnormal Lab Results - Last 24 Hours (Table) 03/31/19 03/31/19 04/01/19 Range/Units 17:00 20:16 05:11 WBC 14.9 H (3.8-10.6) k/uL RBC 2.85 L (3.80-5.40) m/uL Hgb 8.7 L (11.4-16.0) gm/dL Hct 28.5 L (34.0-46.0) % MCHC 30.5 L (31.0-37.0) g/dL RDW 19.3 H (11.5-15.5) % Neutrophils # 12.5 H (1.3-7.7) k/uL Lymphocytes # 0.7 L (1.0-4.8) k/uL Monocytes # 1.1 H (0-1.0) k/uL Sodium (137-145) mmol/L Chloride (98-107) mmol/L Carbon Dioxide (22-30) mmol/L BUN (7-17) mg/dL Creatinine (0.52-1.04) mg/dL Glucose (74-99) mg/dL POC Glucose (mg/dL) 130 H 158 H (75-99) mg/dL AST (14-36) U/L ALT (9-52) U/L Total Protein (6.3-8.2) g/dL Albumin (3.5-5.0) g/dL 04/01/19 04/01/19 04/01/19 Range/Units 05:11 06:56 11:50 WBC (3.8-10.6) k/uL RBC (3.80-5.40) m/uL Hgb (11.4-16.0) gm/dL Hct (34.0-46.0) % MCHC (31.0-37.0) g/dL RDW (11.5-15.5) % Neutrophils # (1.3-7.7) k/uL Lymphocytes # (1.0-4.8) k/uL Monocytes # (0-1.0) k/uL Sodium 132 L (137-145) mmol/L Chloride 93 L (98-107) mmol/L Carbon Dioxide 33 H (22-30) mmol/L BUN 71 H (7-17) mg/dL Creatinine 1.54 H (0.52-1.04) mg/dL Glucose 102 H (74-99) mg/dL POC Glucose (mg/dL) 111 H 144 H (75-99) mg/dL AST 89 H (14-36) U/L ALT 251 H (9-52) U/L Total Protein 4.7 L (6.3-8.2) g/dL Albumin 2.8 L (3.5-5.0) g/dL Assessment and Plan Assessment: sever aortic valve disease both stenosis and regurgitation. status post aortic valve replacement CAD ,status post CABG pericardial effusion status post pericardiocentasis right pleural effusion status post thoracocentasis atrial fibrillation mitral valve regurgitation HTN HLP GERD Plan: this is a pleasant 79 yo F who presents for aortic valve replacement and CABG, pt remains in the icu, she is been followed closely by pulmonary/critical care team and cardiothoracic surgery team , continue with eliquis , amiodaron and antibiotic. Continue with the same treatment , continue with symptomatic treatment , resume home medication , monitor lytes and vitals, . GI and DVT prophylaxis , further recommendation based upon pt clinical course and progress DVT prophylaxis eliquis GI prophylaxis Pepcid prognosis is guarded Dr. Vale will resume the care of the patient tomorrow.
[2019-04-01 17:09] LABS: Glucose,Whole Blood 138 mg/dL (75-99)
[2019-04-01 20:33] LABS: Glucose,Whole Blood 165 mg/dL (75-99)
[2019-04-01] MEDS: SENNOSIDES-DOCUSATE SODIUM 1 EACH TAB PO SCH (21:01)
[2019-04-02 05:05] LABS: Anisocytosis Moderate; HCT 28.5 % (34.0-46.0); HGB 8.9 gm/dL (11.4-16.0); Hypochromasia Moderate; MCH 31.6 pg (25.0-35.0); MCHC 31.4 g/dL (31.0-37.0); MCV 100.5 fL (80.0-100.0); Macrocytosis Moderate; Mean Platelet Volume 7.3; Platelet Count 182 k/uL (150-450); RBC 2.83 m/uL (3.80-5.40); RDW 20.2 % (11.5-15.5); WBC 14.7 k/uL (3.8-10.6)
[2019-04-02 06:07] LABS: Albumin 2.9 g/dL (3.5-5.0); Calcium 8.9 mg/dL (8.4-10.2); Potassium 4.9 mmol/L (3.5-5.1); Total Bilirubin 0.8 mg/dL (0.2-1.3); Total Protein 4.8 g/dL (6.3-8.2)
[2019-04-02 06:42] LABS: Glucose,Whole Blood 107 mg/dL (75-99)
[2019-04-02] MEDS: INSULIN ASPART (NovoLOG) 100 UNIT/ML VIAL SQ SCH ×4 (06:45→21:10)
[2019-04-02] MEDS: ASCORBIC ACID 500 MG TAB PO SCH ×2 (07:05→18:21)
[2019-04-02] MEDS: LEVOTHYROXINE 50 MCG TAB PO SCH (07:05)
[2019-04-02] MEDS: PANTOPRAZOLE 40 MG TABLET PO SCH (07:05)
[2019-04-02] MEDS: FERROUS SULFATE 325 MG TAB PO SCH ×2 (07:05→18:21)
[2019-04-02] MEDS: SYMBICORT 160-4.5 MCG INHALER INHALATION SCH ×2 (07:42→20:28)
[2019-04-02] MEDS: IPRATROPIUM-ALBUTEROL 3 ML NEB INHALATION SCH ×4 (07:42→20:27)
--- NOTE | 2019-04-02 07:48 | P.PN ---
Subjective Progress Note Date: 04/02/19 Principal diagnosis: Severe aortic valve stenosis, moderate to severe mitral valve regurgitation, single-vessel coronary artery disease, and a decreased LV function, chronic systolic heart failure with a preoperative ejection fraction of 30%. History of hypertension, hyperlipidemia, hypothyroid, osteoarthritis, chronic renal failure with baseline creatinine 1.3-1.6, right internal carotid artery stenosis 50-70%, previous tobacco dependance with preoperative FEV1 93% of predicted. POD #14 aortic valve replacement with a #23 mm Avalus bioprosthetic Medtronic aortic valve, mitral valve repair with a #30 mm Carbomedics AnnuloFlex band. Coronary artery bypass grafting 1 vessel with a reverse greater saphenous vein off the aorta to the circumflex coronary artery and a clip ligation of the left atrial appendage with a 35 mm Atriclip. Endoscopic harvesting of the left gr eater saphenous vein. Intraoperative transesophageal echocardiogram. Acute postoperative bleeding, hemorrhagic shock, an unexpected outcome Reactive thrombocytopenia, expected POD #14 Emergent re-exploration of the chest, evacuation of clots and control of bleed. Placement of intra-aortic balloon pump. Post operative atrial fibrillation, unexpected but potential outcome due to multiple comorbidities. Transaminitis, unexpected, likely from hypoperfusion. Postoperative pericardial effusion, unexpected outcome POD #2 pericardial window, placement of right pleural chest tube and synchroniz ed cardioversion Postoperative right pleural effusion, unexpected The patient is currently sitting up in a recliner in no acute distress. Denies pain, states shortness of breath has improved. She ambulated in the hallway 3 times yesterday. Mediastinal and right pleural chest tubes remain. Patient states she is feeling better today. No new concerns. He was in atrial fibrillation yesterday and did receive amiodarone bolus, currently in normal sinus rhythm since about 4:30 this morning. Objective - Vital Signs Vital signs: Vital Signs Temp 98.1 F 04/02/19 04:00 Pulse 71 04/02/19 07:00 Resp 22 04/02/19 07:00 BP 110/61 04/02/19 07:00 Pulse Ox 92 L 04/02/19 07:00 Intake & Output 04/01/19 04/02/19 04/02/19 18:59 06:59 18:59 Intake Total 1070 290 350 Output Total 1252 461 600 Balance -182 -171 -250 Weight 118.4 kg Intake: IV 350 50 Sodium Chloride 0.9% 1, 250 000 ml @ 50 mls/hr IV . Q20H [facility] Rx#:[id number] ceFAZolin 2 gm In Sodium 100 50 Chloride 0.9% 50 ml @ 100 mls/hr IVPB Q8HR [facility] Rx# :[id number] Oral 720 240 350 Output: Chest Tube Drainage 402 161 Chest Tube Right Pleural/ 170 Mediastinal Mediastinal 38 21 Right Pleural 194 140 Urine 850 300 600 Other: Voiding Method Bedside Commode Bedside Commode # Voids 0 ABP, PAP, CO, CI - Last Documented Arterial Blood Pressure 102/67 Pulmonary Artery Pressure 38/16 Cardiac Output 4.7 Cardiac Index 2.1 - Constitutional General appearance: Present: cooperative, no acute distress, obese - Respiratory Details: Lungs sounds diminished bilaterally with coarse breath sounds in the right base. Respirations even, non-labored. Currently on room air with oxygen saturation 100%. Able to achieve 1000 mL on incentive spirometry. Strong cough. Mediastinal chest tube to continuous wall suction, 10 mL serosanguineous drainage overnight, 80 mL since chest tubes were split yesterday. Right pleural chest tube to continuous wall suction, 80 mL serous drainage overnight, 500 mL since chest tubes split yesterday. No air leaks present. - Cardiovascular Details: S1/S2 present. Regular rate and rhythm, sinus rhythm on telemetry. Sternum stable. Palpable peripheral pulses bilaterally. Bilateral lower extremity edema present. No calf pain or tenderness noted. Heart hugger in place with patient demonstrating appropriate use. Antiembolism stockings, SCDs present. - Gastrointestinal Gastrointestinal Comment(s): Abdomen soft, nontender, nondistended. Active bowel sounds present 4 quadrants. Tolerating diet. Positive bowel movement 03/29. - Genitourinary Genitourinary Comment(s): Continues to void clear yellow urine. - Integumentary Integumentary Comment(s): Skin is warm and dry with evidence of good perfusion. Anterior chest incision well approximated and covered with dry intact dressing. Left lower extremity EVH site well approximated. Chest tube sites covered with dry intact dressing. - Neurologic Neurologic: Present: CNII-XII intact - Musculoskeletal Musculoskeletal: Present: gait normal, strength equal bilaterally - Psychiatric Psychiatric: Present: A&O x's 3, appropriate affect, intact judgment & insight - Allied health notes Allied health notes reviewed: nursing - Labs CBC & Chem 7: 04/02/19 04:30 04/02/19 04:30 Labs: Abnormal Lab Results - Last 24 Hours (Table) 04/01/19 04/01/19 04/01/19 Range/Units 11:50 16:58 20:22 WBC (3.8-10.6) k/uL RBC (3.80-5.40) m/uL Hgb (11.4-16.0) gm/dL Hct (34.0-46.0) % MCV (80.0-100.0) fL RDW (11.5-15.5) % Sodium (137-145) mmol/L BUN (7-17) mg/dL Creatinine (0.52-1.04) mg/dL POC Glucose (mg/dL) 144 H 138 H 165 H (75-99) mg/dL AST (14-36) U/L ALT (9-52) U/L Total Protein (6.3-8.2) g/dL Albumin (3.5-5.0) g/dL 04/02/19 04/02/19 04/02/19 Range/Units 04:30 04:30 06:31 WBC 14.7 H (3.8-10.6) k/uL RBC 2.83 L (3.80-5.40) m/uL Hgb 8.9 L (11.4-16.0) gm/dL Hct 28.5 L (34.0-46.0) % MCV 100.5 H (80.0-100.0) fL RDW 20.2 H (11.5-15.5) % Sodium 133 L (137-145) mmol/L BUN 70 H (7-17) mg/dL Creatinine 1.51 H (0.52-1.04) mg/dL POC Glucose (mg/dL) 107 H (75-99) mg/dL AST 62 H (14-36) U/L ALT 122 H (9-52) U/L Total Protein 4.8 L (6.3-8.2) g/dL Albumin 2.9 L (3.5-5.0) g/dL - Imaging and Cardiology Chest x-ray: image reviewed Assessment and Plan Assessment: 1. Severe aortic valve stenosis, status post bioprosthetic aortic valve replacement 2. Moderate to severe mitral valve regurgitation, status post mitral valve repair 3. Single-vessel coronary artery disease, status post 1 vessel CABG 4. Decreased LV function, chronic systolic heart failure, ischemic cardiomyopathy with preoperative EF 30%, EF improved to 40-45% post surgery 5. History of hypertension 6. Hyperlipidemia 7. Hypothyroid 8. Osteoarthritis 9. Right internal carotid artery stenosis 50-69% 10. Acute on chronic renal failure, baseline creatinine 1.3-1.6 11. Previous tobacco dependence with preoperative FEV1 93% of predicted 12. Acute postoperative bleeding, hemorrhagic shock, status post emergent re- exploration of the chest with evacuation of clots and control of the bleed 13. Thrombocytopenia, reactive 14. Postoperative atrial fibrillation, status post clip ligation of left atrial appendage, status post synchronized cardioversion 15. Transaminitis, likely related to hypoperfusion 16. Postoperative pericardial effusion, status post pericardial window 17. Postoperative right pleural effusion, status post placement of right pleural chest tube Plan: 1. Continue low-dose aspirin, beta heriberto therapy. Will increase beta heriberto therapy as tolerated, increased to 25 mg 3 times a day yesterday. Continue to hold statin secondary to transaminitis. 2. Continue amiodarone. Continue Eliquis for anticoagulation. 3. Patient would benefit from ARLEN inhibitor for afterload reduction, however contraindicated at this time secondary to acute kidney injury. 4. Continue fluid restrictions, daily weights, strict accurate I and O's. 5. Encourage incentive spirometry 10 times every hour while awake. Patient needs aggressive pulmonary hygiene. 6. Bronchodilators, Symbicort per pulmonology. 7. Increase activity, ambulate as tolerated. PT/OT/cardiac rehab following. 8. Will monitor daily labs and x-rays. Electrolytes replacement per protocol. 9. GI/DVT prophylaxis. 10. Insulin management per primary care service. 11. Pain control current medication regimen. No Toradol. 12. Continue Iron, vitamin C. 13. Will give Lasix 40 mg IV push 1 today. 14. Will discontinue mediastinal chest tube. Continue right pleural chest tube for another [address] transfer orders for 3 S. cardiac stepdown unit. May transfer when bed available. 16. Discharge planning in progress. Anticipate discharge to inpatient rehab, insurance authorization has been obtained. Will discharge to inpatient rehab once patient is medically stable. 17. More recommendations to follow as patient progresses. Time with Patient: Greater than 30
--- NOTE | 2019-04-02 07:52 | XR ---
EXAMINATION TYPE: XR chest 1V portable DATE OF EXAM: 04/02/2019 COMPARISON: 04/01/2019 HISTORY: Abnormal x-ray TECHNIQUE: Single frontal view of the chest is obtained. FINDINGS: There is persistent widening of the upper mediastinum. Bilateral infiltrate. Pneumothorax. Arthropathy of the shoulders. Postsurgical changes are seen. Right-sided chest tube stable. No sizab le. IMPRESSION: 1. Stable postsurgical changes with bilateral infiltrate and pleural effusion. 2. There is persistent widening of the mediastinum superiorly. Mediastinal pathology differential angelica gnosis recommend follow-up CT chest.
[2019-04-02] MEDS ORDERED: FUROSEMIDE 10 MG/ML 4 ML VIAL IV STA (08:08)
[2019-04-02] MEDS: ASPIRIN 81 MG PO SCH (08:12)
[2019-04-02] MEDS: AMIODARONE 200 MG TAB PO SCH ×2 (08:12→21:11)
[2019-04-02] MEDS: APIXABAN 2.5 MG TABLET PO SCH ×2 (08:12→21:11)
[2019-04-02] MEDS: METOPROLOL TARTRATE 25 MG TAB PO SCH ×4 (08:12→23:00)
[2019-04-02] MEDS: CHOLECALCIFEROL 1,000 UNIT TAB PO SCH (08:12)
--- NOTE | 2019-04-02 08:59 | P.PN ---
Subjective Patient is seen in follow-up for acute kidney injury on chronic kidney disease. Renal function is stable. Dyspnea better. She was given Lasix 40 mg IV once this morning. She is nonoliguric. Vital signs are stable. General: The patient appeared well nourished and normally developed. HEENT: Head exam is unremarkable. Neck is without jugular venous distension. LUNGS: Lungs are clear to auscultation and percussion. Breath sounds decreased. HEART: Rate and Rhythm are regular. First and second heart sounds normal. No murmurs, rubs or gallops. ABDOMEN: Abdominal exam reveals normal bowel sounds. Non-tender and non- distended. No evidence of peritonitis. EXTREMITITES: 1+ edema. Objective - Vital Signs Vital signs: Vital Signs Temp 98.3 F 04/02/19 08:00 Pulse 73 04/02/19 08:00 Resp 20 04/02/19 08:00 BP 109/78 04/02/19 08:00 Pulse Ox 99 04/02/19 08:00 Intake & Output 04/01/19 04/02/19 04/02/19 18:59 06:59 18:59 Intake Total 1070 290 450 Output Total 1252 461 600 Balance -182 -171 -150 Weight 118.4 kg Intake: IV 350 50 Sodium Chloride 0.9% 1, 250 000 ml @ 50 mls/hr IV . Q20H [facility] Rx#:[id number] ceFAZolin 2 gm In Sodium 100 50 Chloride 0.9% 50 ml @ 100 mls/hr IVPB Q8HR [facility] Rx# :[id number] Oral 720 240 450 Output: Chest Tube Drainage 402 161 0 Chest Tube Right Pleural/ 170 Mediastinal Mediastinal 38 21 0 Right Pleural 194 140 0 Urine 850 300 600 Other: Voiding Method Bedside Commode Bedside Commode # Voids 0 ABP, PAP, CO, CI - Last Documented Arterial Blood Pressure 102/67 Pulmonary Artery Pressure 38/16 Cardiac Output 4.7 Cardiac Index 2.1 - Labs CBC & Chem 7: 04/02/19 04:30 04/02/19 04:30 Labs: Abnormal Lab Results - Last 24 Hours (Table) 04/01/19 04/01/19 04/01/19 Range/Units 11:50 16:58 20:22 WBC (3.8-10.6) k/uL RBC (3.80-5.40) m/uL Hgb (11.4-16.0) gm/dL Hct (34.0-46.0) % MCV (80.0-100.0) fL RDW (11.5-15.5) % Sodium (137-145) mmol/L BUN (7-17) mg/dL Creatinine (0.52-1.04) mg/dL POC Glucose (mg/dL) 144 H 138 H 165 H (75-99) mg/dL AST (14-36) U/L ALT (9-52) U/L Total Protein (6.3-8.2) g/dL Albumin (3.5-5.0) g/dL 04/02/19 04/02/19 04/02/19 Range/Units 04:30 04:30 06:31 WBC 14.7 H (3.8-10.6) k/uL RBC 2.83 L (3.80-5.40) m/uL Hgb 8.9 L (11.4-16.0) gm/dL Hct 28.5 L (34.0-46.0) % MCV 100.5 H (80.0-100.0) fL RDW 20.2 H (11.5-15.5) % Sodium 133 L (137-145) mmol/L BUN 70 H (7-17) mg/dL Creatinine 1.51 H (0.52-1.04) mg/dL POC Glucose (mg/dL) 107 H (75-99) mg/dL AST 62 H (14-36) U/L ALT 122 H (9-52) U/L Total Protein 4.8 L (6.3-8.2) g/dL Albumin 2.9 L (3.5-5.0) g/dL Assessment and Plan Plan: Assessment: 1. Acute kidney injury secondary to ATN secondary to cardiorenal syndrome. Creatinine peaked at 2.06 this admission and is 1.51 today. UA is quite benign. No hydronephrosis noted on renal ultrasound. 2. Status post CABG, mitral valve repair and aortic valve replacement on March 19. 3. Systolic CHF with ejection fraction of 40-45%. 4. Chronic kidney disease stage III with baseline creatinine in the range of 1.1-1.5 secondary to cardiorenal syndrome. 5. Volume overload. 6. Hypervolemic hyponatremia. 7. Anemia. Related to postoperative blood loss. High ferritin level noted. Stable. Plan: Status post IV Lasix 40 mg this morning. Continue to monitor renal function and urine output. Avoid nephrotoxins.
--- NOTE | 2019-04-02 10:23 | PN ---
PROGRESS NOTE A 79-year-old lady who was admitted to hospital with aortic valve replacement and mitral valve repair. Had respiratory insufficiency due to a combination of pericardial effusion, atrial fibrillation, pleural effusion. She underwent a pericardial window, thoracentesis with significant improvement in her symptoms. This morning she is converted to sinus rhythm. She is on Cordarone 200 b.i.d., on Eliquis, aspirin, insulin, Synthroid, Lopressor 25 t.i.d. PHYSICAL EXAM: At rest. Vital signs are stable. Chest exam reveals diminished air entry at the bases. Heart exam reveals first and second heart sounds. No gallop. Abdomen is soft. Exam extremities did not reveal any edema. Peripheral pulses are felt. LABS: Show a hemoglobin of 8.9, potassium is 4.9, BUN is 70, creatinine is 1.5. ASSESSMENT: 1. Status post aortic valve replacement, status post mitral valve repair. 2. Renal insufficiency. 3. Chronic atrial fibrillation. PLAN: Will continue current medications. She has made significant improvement over the last two days. Hopefully, out of ICU. MMODL / IJN: [id number] /
[2019-04-02 12:07] LABS: Glucose,Whole Blood 111 mg/dL (75-99)
--- NOTE | 2019-04-02 14:28 | P.PN ---
Subjective Progress Note Date: 04/02/19 Principal diagnosis: Aortic valve stenosis with severe aortic valve regurgitation status post aortic valve replacement. And status post pericardial window for pericardial effusion. This is a 79-year-old white female patient of Dr. Mati Vale, with a known history of aortic stenosis and regurgitation, hypertension, hyperlipidemia, hypothyroidism, moderate noncritical carotid artery stenosis, who was found to have significant decrease in LV function based on her echocardiogram in December 2018 with systolic/diastolic dysfunction. Recent underwent transesophageal echocardiogram on 02/05/2019 showing sclerotic and calcific aortic valve with severe aortic stenosis with area of the aortic valve calculated in the range of 1-1.1. There was moderate degree of mitral regurgitation, severely impaired left ventricle systolic function with estimated ejection fraction of 30%, and no evidence of thrombus in the left atrial appendage. Catheterization showed diffusely diseased LAD distally, RCA was dominant and disease free, circumflex had a 60-70% mid lesion. Yesterday on 03/19/2019 patient underwent aortic valve replacement with a #23 mm a villous hypostatic Med[employer] aortic valve, mitral valve repair with a #30 mm [employer] annular flex band, and single-vessel coronary artery bypass grafting with reverse SVG to the circumflex and ligation of the left atrial appendage with a #35 mm Atriclip. The patient is seen today 03/27/2019 in follow-up on the selective care unit. She is currently sitting up in a chair at the bedside. Awake and alert in no acute distress. She is currently maintaining good O2 saturations in the upper 90s on 2 L/m per nasal cannula. She's been afebrile. Hemodynamically stable. White count 14.5. Hemoglobin 7.6. Creatinine 1.83. AST 107. ALT 319. She is status post 6 units of packed red blood cells. She remains on amiodarone. Anticoagulated with Eliquis. Continued on bronchodilators. She is working well with the incentive spirometer. Needs increased encouragement. Today's chest x- ray was reviewed. No plans for thoracentesis at this point. The patient is seen today 03/28/2019 in follow-up on the selective care unit. Currently sitting up in a chair at the bedside. Awake and alert in no acute distress. Chest x-ray reveals cardiomegaly, possible interstitial edema with pulmonary venous hypertension. Some small basilar effusions/atelectasis. Somewhat more fatigued today as compared to yesterday. Pale. White count 14.8. Hemoglobin 7.4. Creatinine 2.06. AST 553. ALT 627. On 03/29/2019 the patient is looking slightly better. Breathing easier. Pulling approximately 1100 on the incentive spirometer. No cough or sputum production. We'll doing percussion and vibration to the right lower chest area. Remains in sinus rhythm. Off amiodarone. LFTs are improving. Creatinine is at 1.84 which is lower than yesterday. Sodium level is at 129. No new complaints otherwise for now. No chest pain. No palpitation. Hemoglobin stable at 8.0 On 03/30/2019 patient is still short of breath. Despite her being on room air oxygen, the patient is still struggling with her breathing and she short of breath. She is using incentive spirometer. A repeat echo cardiac exam was done and the patient was found to have moderate amount of pericardial effusion. Also, she is back to atrial fibrillation. LFTs are improving. The white cell count is at 16.8. Hemoglobin is at 8.5. Renal function shows a creatinine of 1.8. No other significant events overnight. The plan is for this patient to be ventilated by cardiac thoracic surgery in consultation for a cardiocentesis versus pericardial window. As for the right lung finding, the patient continues to diminished breath on the right lung base due to a combination of atelectasis/effusion. The echocardiogram showed an ejection fraction of 40-45%. The left ventricle was mildly dilated. There is mild to moderate impairment of the ejection fraction. On 03/31/2019 the patient is again postop. The patient underwent a pericardial window. The patient also underwent a right-sided chest tube insertion. The patient underwent cardioversion and operating room. There was a total of 700 mL of pleural fluid drained from the right lung and there was another 400 mL of pericardial effusion that was drained. Initially the patient had a successful cardioversion to sinus rhythm. After arriving to the ICU the patient went back into atrial fibrillation. The patient was given a bolus of amiodarone 150 mg and she'll be maintained on oral amiodarone. Chest tube is in place. Pericardial tube is in place. She is hemodynamically stable. She is not having any significant shortness of breath. Resting comfortably in bed. The LFTs are improving still. The creatinine is also improving is down to 1.7. No other significant events since the surgery and the patient is resting comfortably in bed. Chest x-ray was noted. On 04/01/2019 I'm seeing the patient for a follow-up. The patient intensive care unit. The pleural chest tube in the cardiac chest tube will be . The output from the chest tubes were noted. This patient is using the incentive spirometer. The patient is pulling up to thousand. Pulse ox is 94% on room air. Cardiac rhythm is still atrial fibrillation and the rate is controlled for now. The patient was given oral amiodarone. The patient had a lower blood pressure earlier this morning and the patient was given a bolus of normal saline. She is producing adequate amount of urine output. The chest tubes are all in place. There is no evidence of any air leak. Output is serosanguineous. No altered mentation. No other significant events overnight. The chest x-ray from today showed cardiomegaly and bibasilar infiltrates and small effusions. There is also widening of the vascular pedicle this is related to vascular ectasia. Reevaluated today on 04/02/2019, patient remains in the ICU, quite comfortable, in no distress, doing extremely well with incentive spirometry. She is now postoperative day #14, aortic valve replacement and emergent reexploration of the chest with evacuation of clots and control of bleeding. Placement of intra- aortic balloon pump. Postoperative day #2 pericardial window placement of right pleural chest tube and synchronized cardioversion. Objective - Vital Signs Vital signs: Vital Signs Temp 98.1 F 04/02/19 12:00 Pulse 71 04/02/19 12:00 Resp 22 04/02/19 12:00 BP 124/76 04/02/19 12:00 Pulse Ox 97 04/02/19 12:03 Intake & Output 04/01/19 04/02/19 04/02/19 18:59 06:59 18:59 Intake Total 1070 290 450 Output Total 9778 032 1030 Balance -182 171 -900 Weight 118.4 kg Intake: IV 350 50 Sodium Chloride 0.9% 1, 250 000 ml @ 50 mls/hr IV . Q20H [facility] Rx#:[id number] ceFAZolin 2 gm In Sodium 100 50 Chloride 0.9% 50 ml @ 100 mls/hr IVPB Q8HR [facility] Rx# :[id number] Oral 720 240 450 Output: Chest Tube Drainage 402 161 80 Chest Tube Right Pleural/ 170 Mediastinal Mediastinal 38 21 0 Right Pleural 194 140 80 Urine 384 [id number] Other: Voiding Method Bedside Commode Bedside Commode Bedside Commode # Voids 0 ABP, PAP, CO, CI - Last Documented Arterial Blood Pressure 102/67 Pulmonary Artery Pressure 38/16 Cardiac Output 4.7 Cardiac Index 2.1 - Exam Physical Exam: Revealed 79-year-old female in no distress. Head: Atraumatic, normocephalic. HEENT:[Neck is supple.] [No neck masses.] [No thyromegaly.] [No JVD.] Chest: Diminished breath sounds at the bases no crackles or rhonchi or wheezes. Symmetrical chest expansion noted. Right-sided chest tube is noted. Cardiac Exam: [Normal S1 and S2, no S3 gallop, no murmur.] Abdomen: [Soft, nontender, no megaly, no rebound, no guarding, normal bowel sounds.] Extremities: [No clubbing, no edema, no cyanosis.] Neurological Exam: [No focal neurologic deficit.] Alert oriented 3. Psychiatric: Normal mood, affect and normal mental status examination. Skin: No rashes. - Labs CBC & Chem 7: 04/02/19 04:30 04/02/19 04:30 Labs: Abnormal Lab Results - Last 24 Hours (Table) 04/01/19 04/01/19 04/02/19 Range/Units 16:58 20:22 04:30 WBC 14.7 H (3.8-10.6) k/uL RBC 2.83 L (3.80-5.40) m/uL Hgb 8.9 L (11.4-16.0) gm/dL Hct 28.5 L (34.0-46.0) % MCV 100.5 H (80.0-100.0) fL RDW 20.2 H (11.5-15.5) % Sodium (137-145) mmol/L BUN (7-17) mg/dL Creatinine (0.52-1.04) mg/dL POC Glucose (mg/dL) 138 H 165 H (75-99) mg/dL AST (14-36) U/L ALT (9-52) U/L Total Protein (6.3-8.2) g/dL Albumin (3.5-5.0) g/dL 04/02/19 04/02/19 04/02/19 Range/Units 04:30 06:31 11:55 WBC (3.8-10.6) k/uL RBC (3.80-5.40) m/uL Hgb (11.4-16.0) gm/dL Hct (34.0-46.0) % MCV (80.0-100.0) fL RDW (11.5-15.5) % Sodium 133 L (137-145) mmol/L BUN 70 H (7-17) mg/dL Creatinine 1.51 H (0.52-1.04) mg/dL POC Glucose (mg/dL) 107 H 111 H (75-99) mg/dL AST 62 H (14-36) U/L ALT 122 H (9-52) U/L Total Protein 4.8 L (6.3-8.2) g/dL Albumin 2.9 L (3.5-5.0) g/dL Assessment and Plan Assessment: Impression: Severe aortic valve stenosis, status post bioprosthetic aortic valve replacement, postoperative day #14. Moderate to severe mitral regurgitation, status post mitral valve repair postoperative day #14. Single vessel coronary artery disease status post CABG 1 postoperative day #14. Severe ischemic cardiomyopathy and LV dysfunction ejection fraction was 30% improved to 45% post surgery. Pericardial effusion requiring pericardial window postoperative day #2. Multiple comorbidities including hypertension, hyperlipidemia, hypothyroidism, osteoarthritis, acute on chronic renal failure, acute postoperative bleeding, unexpected, postoperative atrial fibrillation, expected, status post synchronized cardioversion, postoperative pericardial effusion unexpected status post pericardial window, postoperative right pleural effusion requiring a right sided chest tube placement. Expected. Recommendation: Continue present treatment plan including low-dose aspirin, beta blockers, Eliquis, amiodarone, strict I's and O's, encourage incentive spirometry, bronchodilators, increase activity, continue GI and DVT prophylaxis, continue insulin, continue pain control, diurese on a daily basis as needed. We'll continue to follow. Time with Patient: Less than 30
[2019-04-02] MEDS: BISACODYL 10 MG SUPP RECTAL PRN (15:33)
--- NOTE | 2019-04-02 16:15 | P.PN ---
Subjective Progress Note Date: 04/02/19 This is a 79-year-old female status post CABG X1, aortic valve replacement with bioprosthetic valve, mitral valve repair in a patient with severe aortic valve stenosis, moderate to severe mitral valve regurgitation, CAD, ischemic cardiomyopathy-preop EF 30%, pulmonary hypertension, hypertension, hypothyro idism and multiple other medical issues. Shortly after returning to ICU postop, she developed increased chest tube ouput of 1.3 L over 1-1/2 hours, returned to the OR and required emergent reexploration of the chest with evacuation of clots, control bleeding, placement of IABP. Mediastinal and left pleural chest tube drainage improved. This morning IABP weaned to 1:3 with plans for discontinuing this morning. Continuies on DIprovan, Levophed, Primacor and insulin drips. Cardiac output 7.4, cardiac index 3.4. Maintained on mechanical ventilation with FiO2 40%/+5 of PEEP. Chest x-ray reporting bilateral consolidation and pleural effusion. Telemetry accelerated junctional. 03/21/2019 Extubated yesterday evening.Maintaining O2 sats in the high 90s on 4 L nasal cannula. Incentive spirometer 800 to 1000. Maintained on insulin and Levophed drips. Recent cardiac output/cardiac index 6.1/2.8 .Developed atrial fibrillation last night, received digoxin. Remains in atrial fibrillation, receiving amiodarone bolus with drip pending. Magnesium 2.2, potassium 4.7. Hemoglobin remains stable at 8.5, platelets 62. creatinine 1.26 .Pain controlled. 03/22/2019 maintained on insulin, amiodarone, Levophed drips. Telemetry atrial fibrillation. Amiodarone discontinued secondary to elevated transminases; continues on metoprolol. Arixtra initiated. IS up to 1000. Maintaining O2 sats in the high 90s on 4 L nasal cannula. Chest x-ray reporting mild central vascular congestion, small bilateral pleural effusions and bibasilar acute infiltrates versus atelectasis-no significant change. Maintained on Lasix IV push with 24-hour I&O reflecting a positive fluid balance. 24-hour I&O reflects mediastinal chest tube for 417mls and left pleural chest tube 190mls in the next 24 hours.Hemoglobin 7.8, platelets 57. CO/CI 4.7/2.1. Creatinine 1.37. T-max 100.8, WBC 16.7. Blood sugars controlled. 03/23/2019 All drips have been weaned off. Cardiology discussing removing both pleural and mediastinal chest tubes today .Telemetry controlled atrial fibrillation on beta heriberto. Mild shortness of breath, maintaining O2 sats in the mid 90s on 3 L nasal cannula. Chest x-ray reporting bilateral atelectasis, stable small effusion, fluid overload. IS up to 750. Diuresing well on Lasix IV push with 24-hour I&O reflecting a negative fluid balance. 03/26/19 Sitting up in chair, continues to improve. Diuresing well with edema improving. Bicarb 34, sodium level 130, hemoglobin 7.[address] pending.Incentive spirometer up to almost 1000. Maintaining O2 sats in the mid 90s on room air. LFTs trending down. Controlled proximal atrial fibrillation, on Eliquis. Has not yet walked today, but states did ambulate yesterday in the hallway. Potassium of 3.4 being supplemented. 03/27/2019 sitting up in chair, maintaining O2 sats in the high 90s on 2 L nasal cannula.IS up to 1000. Ambulated in the hallway -Complains of mild shortness of breath, exertional shortness of breath. Chest x-ray reporting basilar effusions, atelectasis. Anticoagulated with Eliquis. Hemoglobin 7.6. Afebrile, WBC 14.5. Creatinine up to 1.83, Lasix discontinued. Sodium 131, fluid restrictions maintained. Developed paroximal atrial fibrillation last night, amiodarone drip initiated. Telemetry currently sinus rhythm with occasional PVC. amiodarone drip converted to oral. Bradycardic,Beta heriberto dose decreased. AST 107, ALT 319, T bili 1.2, statin remains on hold. Blood sugars controlled. Afebrile. 03/28/2019 telemetry sinus rhythm with occasional accelerated junctional rhythm, bradycardic at times with heart rates in the 50s. Borderline hypotension with MAP in the low 70s. Maintaining O2 sats low 90s to 95% on room air .Sitting up in chair, and does not feel well, complains of increased shortness of breath, fatigue. Pale appearance. Hgb 7.4, scheduled for transfusion of packed RBCs amiodarone discontinued as LFTs remain elevated, mildly improved with T bili up to 1.5. 24-hour I&O reflecting a negative fluid balance. Chest x-ray reporting cardiomegaly, possible interstitial edema, pulmonary venous hypertension, bibasilar effusions, atelectasis, prominent aorta with no evidence of pneumothorax. Incentive spirometer up to 750. 03/29/2019 Reports less fatigue this morning, shortness of breath, positive surgical site chest pain. yesterday she received 1 unit of packed RBCs, albumin with current hemoglobin at 8.0. Creatinine 1.84. Controlled atrial fibrillati on earlier this morning with reported multiple nonsustained runs of V. tach. Received additional Lopressor. Magnesium 2.30, potassium 4.2, bicarb 31. Maintaining O2 sats in the mid 90s on room air, 99% on 2 L nasal cannula. Chest x-ray pending. IS decreased to 500.Systolic blood pressure currently in the 90s. Telemetry currently reported patient converted to sinus bradycardia, heart rate in the 50s. LFTs continue to trend down slowly, T bili up to 1.8. 03/30/2019 maintaining O2 sats in the mid to high 90s on room air, complains of periodic shortness of breath at rest as well as exertional shortness of breath. IS up to 750. Chest x-ray reporting similar with probable bibasilar atelectasis, small effusions, stable cardiomegaly, aortic aneurysm. Telemetry atrial fibrillation , T bili 1.5, LFTs improving. Hemoglobin 8.5. Repeat echo reporting moderate paracardial effusion.Creatinine 1.89. Afebrile, WBC increased to 16.8. 04/02/2019 currently in the ICU, postop day #2 paracardial window, placement of right pleural chest tube and synchronized cardioversion. Yesterday she received amiodarone bolus, converted to sinus rhythm this morning . Feels better,sitting up in recliner, no acute distress with significant improvement in shortness of breath. Incentive spirometer up to 1000. Renal function stable. Chest x-ray reporting persistent widening of the mediastinum, further reviewed as per cardiothoracic surgery. Mediastinal chest tube discontinued. Objective - Vital Signs Vital signs: Vital Signs Temp 98.1 F 04/02/19 12:00 Pulse 71 04/02/19 12:00 Resp 22 04/02/19 12:00 BP 124/76 04/02/19 12:00 Pulse Ox 97 04/02/19 12:03 Intake & Output 04/01/19 04/02/19 04/02/19 18:59 06:59 18:59 Intake Total 1070 290 450 Output Total 1624 856 8800 Balance -182 171 -900 Weight 118.4 kg Intake: IV 350 50 Sodium Chloride 0.9% 1, 250 000 ml @ 50 mls/hr IV . Q20H [facility] Rx#:[id number] ceFAZolin 2 gm In Sodium 100 50 Chloride 0.9% 50 ml @ 100 mls/hr IVPB Q8HR [facility] Rx# :[id number] Oral 720 240 450 Output: Chest Tube Drainage 402 161 80 Chest Tube Right Pleural/ 170 Mediastinal Mediastinal 38 21 0 Right Pleural 194 140 80 Urine 494 [id number] 1198 Other: Voiding Method Bedside Commode Bedside Commode Bedside Commode # Voids 0 ABP, PAP, CO, CI - Last Documented Arterial Blood Pressure 102/67 Pulmonary Artery Pressure 38/16 Cardiac Output 4.7 Cardiac Index 2.1 - Exam PHYSICAL EXAM: VITAL SIGNS: As above GENERAL: Sitting up in bed, no acute distress HEENT: Conjunctivae normal. eyes normal. Oral mucosa moist NECK: No JVD. No thyroid enlargement. No LNs. CARDIOVASCULAR: S1, S2 , regular No murmur, rubs or gallops. RESPIRATION: Nonlabored, Breath sounds diminished in the bases, right base course. No rhonchi, crackles or wheezes.Right-sided chest tube present with serous drainage ABDOMEN: Soft, nontender . No guarding. no masses palpable. Positive Bowel sounds. LEGS: Decreasing Mild edema, positive peripheral pulses, LAUREL hose. PSYCHIATRY: Alert and oriented 3, mood and affect normal NERVOUS SYSTEM: Cranial nerves II through XII grossly intact, moves all 4 extremities, mild diffuse generalized weakness. No focal deficits. Skin: no rashes. - Labs CBC & Chem 7: 04/02/19 04:30 04/02/19 04:30 Labs: Abnormal Lab Results - Last 24 Hours (Table) 04/01/19 04/01/19 04/02/19 Range/Units 16:58 20:22 04:30 WBC 14.7 H (3.8-10.6) k/uL RBC 2.83 L (3.80-5.40) m/uL Hgb 8.9 L (11.4-16.0) gm/dL Hct 28.5 L (34.0-46.0) % MCV 100.5 H (80.0-100.0) fL RDW 20.2 H (11.5-15.5) % Sodium (137-145) mmol/L BUN (7-17) mg/dL Creatinine (0.52-1.04) mg/dL POC Glucose (mg/dL) 138 H 165 H (75-99) mg/dL AST (14-36) U/L ALT (9-52) U/L Total Protein (6.3-8.2) g/dL Albumin (3.5-5.0) g/dL 04/02/19 04/02/19 04/02/19 Range/Units 04:30 06:31 11:55 WBC (3.8-10.6) k/uL RBC (3.80-5.40) m/uL Hgb (11.4-16.0) gm/dL Hct (34.0-46.0) % MCV (80.0-100.0) fL RDW (11.5-15.5) % Sodium 133 L (137-145) mmol/L BUN 70 H (7-17) mg/dL Creatinine 1.51 H (0.52-1.04) mg/dL POC Glucose (mg/dL) 107 H 111 H (75-99) mg/dL AST 62 H (14-36) U/L ALT 122 H (9-52) U/L Total Protein 4.8 L (6.3-8.2) g/dL Albumin 2.9 L (3.5-5.0) g/dL Assessment and Plan Assessment: -Status post CABG 1 with Aortic and Mitral valve repair with left atrial appendage exclusion, secondary to severe aortic valve stenosis and moderate to severe mitral valve regurgitation. Bioprosthetic aortic valve. -Acute postoperative bleeding, unexpected outcome, status post emergent reexploration, evacuation of clot and control of bleeding, status post placement of IABP. -Acute blood loss anemia secondary to the above, status post transfusions of multiple products; RBCs, cryoprecipitate, FFP, platelets -Postoperative hypotension, secondary to hemorrhagic shock, unexpected outcome, status post pressor dependent -Pericardial effusion status post pericardial window -Postoperative right pleural effusion, status post placement of right pleural chest tube - synchronized cardioversion -Thrombocytopenia -Postoperative paroximal atrial fibrillation -Secondary pulmonary hypertension -Chronic systolic CHF, Ischemic cardiomyopathy, preop EF 30%, improved post surgery EF 40-45%. -Hyperlipidemia -Hypertension, history of -Hypothyroidism -Right ICA stenosis 50-70% -History of nicotine dependence -Acute on chronic renal failure, stage III, secondary to cardiorenal syndrome. -Hyponatremia -Transaminitis -Nonsustained runs of V. tach -Moderate sized pericardial effusion per echo -Leukocytosis Plan: Continue current medication regime ,monitoring and symptomatic treatment. Continue Cordarone ,Eliquis, aspirin, Lopressor.Aggressive pulmonary toileting with incentive spirometer reinforced -currently up to 1000 . Continue nebulized bronchodilators. Close monitoring of renal function, electrolytes, LFTs with repeat labs ordered for a.m. cleared for transfer out of ICU by cardiothoracic surgery , telemetry bed pending.prognosis guarded given multiple complex medical issues. Further recommendations to follow. The impression and plan of care has been dictated as directed. : I performed a history and examination of this patient, discussed the same with the dictator. I agree with the dictator's note ,documented as a scribe. Any additional findings or plans will be noted. Time taken: 35 minutes.
[2019-04-02 17:12] LABS: Glucose,Whole Blood 121 mg/dL (75-99)
[2019-04-02 20:47] LABS: Glucose,Whole Blood 138 mg/dL (75-99)
[2019-04-02] MEDS: SENNOSIDES-DOCUSATE SODIUM 1 EACH TAB PO SCH (21:14)
[2019-04-02] MEDS: ACETAMINOPHEN TAB 500 MG TAB PO PRN (21:15)
[2019-04-03 05:51] LABS: Anisocytosis Slight; HCT 27.6 % (34.0-46.0); HGB 8.5 gm/dL (11.4-16.0); Hypochromasia Marked; MCH 30.7 pg (25.0-35.0); MCHC 30.8 g/dL (31.0-37.0); MCV 99.7 fL (80.0-100.0); Macrocytosis Moderate; Mean Platelet Volume 6.9; Platelet Count 175 k/uL (150-450); Poikilocytosis Slight; RBC 2.77 m/uL (3.80-5.40); WBC 11.5 k/uL (3.8-10.6)
[2019-04-03 06:01] LABS: Albumin 2.8 g/dL (3.5-5.0); Calcium 8.8 mg/dL (8.4-10.2); Total Protein 4.7 g/dL (6.3-8.2)
[2019-04-03 06:39] LABS: Glucose,Whole Blood 95 mg/dL (75-99)
[2019-04-03] MEDS: LEVOTHYROXINE 50 MCG TAB PO SCH (06:41)
[2019-04-03] MEDS: FERROUS SULFATE 325 MG TAB PO SCH ×2 (06:41→17:47)
[2019-04-03] MEDS: PANTOPRAZOLE 40 MG TABLET PO SCH (06:42)
[2019-04-03] MEDS: ASCORBIC ACID 500 MG TAB PO SCH ×2 (06:42→17:47)
[2019-04-03] MEDS: INSULIN ASPART (NovoLOG) 100 UNIT/ML VIAL SQ SCH ×4 (06:42→22:52)
[2019-04-03] MEDS: SYMBICORT 160-4.5 MCG INHALER INHALATION SCH ×2 (07:06→20:30)
[2019-04-03] MEDS: IPRATROPIUM-ALBUTEROL 3 ML NEB INHALATION SCH ×4 (07:06→20:31)
[2019-04-03] MEDS ORDERED: FUROSEMIDE 10 MG/ML 4 ML VIAL IV STA (08:25)
--- NOTE | 2019-04-03 08:41 | P.PN ---
Subjective Progress Note Date: 04/03/19 Principal diagnosis: Severe aortic valve stenosis, moderate to severe mitral valve regurgitation, single-vessel coronary artery disease, and a decreased LV function, chronic systolic heart failure with a preoperative ejection fraction of 30%. History of hypertension, hyperlipidemia, hypothyroid, osteoarthritis, chronic renal failure with baseline creatinine 1.3-1.6, right internal carotid artery stenosis 50-70%, previous tobacco dependance with preoperative FEV1 93% of predicted. POD #15 aortic valve replacement with a #23 mm Avalus bioprosthetic Medtronic aortic valve, mitral valve repair with a #30 mm Carbomedics AnnuloFlex band. Coronary artery bypass grafting 1 vessel with a reverse greater saphenous vein off the aorta to the circumflex coronary artery and a clip ligation of the left atrial appendage with a 35 mm Atriclip. Endoscopic harvesting of the left gr eater saphenous vein. Intraoperative transesophageal echocardiogram. Acute postoperative bleeding, an unexpected outcome. Reactive thrombocytopenia, expected, resolved. POD #15 Emergent re-exploration of the chest, evacuation of clots and control of bleed. Placement of intra-aortic balloon pump. Post operative paroxysmal atrial fibrillation, unexpected. Transaminitis, unexpected. Postoperative pericardial effusion, an unexpected outcome. POD #3 pericardial window, placement of right pleural chest tube and synchronized cardioversion. Postoperative right pleural effusion, an unexpected outcome. The patient is sitting up to the bedside chair in the intensive care unit. She is in no acute distress. Denies any complaints of pain or shortness of breath. She remains hemodynamically stable and is currently on no inotropic or pressor support. She reports that she has been ambulating in the intensive care unit hallway with minimal assistance and has been tolerating it well. She is tolerating oral intake and reports that she had a bowel movement yesterday. Bedside telemetry showing normal sinus rhythm heart rate 73. She remains on room air with oxygen saturations 94% and she is achieving 1000 mL on her incentive spirometry. Subxiphoid chest tube was removed yesterday and her right pleural chest tube remains in place to low continuous wall suction -20 cm H2O. No air leak is present. Draining thin serosanguineous drainage. 400 mL output in 24 hours and 200 mL output in the last 8 hours. Objective - Vital Signs Vital signs: Vital Signs Temp 98.2 F 04/03/19 04:00 Pulse 74 04/03/19 07:18 Resp 23 04/03/19 04:00 BP 108/64 04/03/19 04:00 Pulse Ox 94 L 04/03/19 04:00 Intake & Output 04/02/19 04/03/19 04/03/19 18:59 06:59 18:59 Intake Total 690 480 Output Total 2220 960 Balance -1530 -480 Intake: Oral 690 480 Output: Chest Tube Drainage 200 210 Mediastinal 0 Right Pleural 200 210 Urine 2020 750 Other: Voiding Method Toilet Toilet # Voids 1 1 # Bowel Movements 1 ABP, PAP, CO, CI - Last Documented Arterial Blood Pressure 102/67 Pulmonary Artery Pressure 38/16 Cardiac Output 4.7 Cardiac Index 2.1 - Constitutional General appearance: Present: cooperative, no acute distress, obese - Respiratory Details: Lung sounds essentially clear to her bilateral upper lobes, scattered crackles to bilateral bases right greater than left. Respirations are symmetrical and nonlabored. Oxygen saturation is 94% on room air. Achieving 1000 mL on her incentive spirometry. Right pleural chest tube remains in place to low continuous wall suction -20 cm H2O. No air leak is present. Draining thin serosanguineous drainage. 200 mL output in the last 8 hours, 400 mL output in the last 24 hours. - Cardiovascular Details: Regular rhythm and rate. S1 and S2 present, negative for S3, gallop or murmur. Sternum is stable. Bedside telemetry showing normal sinus rhythm heart rate 73 with occasional PVC. +1 edema to her bilateral lower extremities. Knee-high LAUREL hose and sequential compression devices in place to bilateral lower extremities. Heart hugger is in place and she is demonstrating appropriate use. - Gastrointestinal Gastrointestinal Comment(s): Abdomen is soft, nontender and nondistended. Active bowel sounds present in all 4 abdominal quadrants. Bowel movement yesterday 04/02/2019. No organomegaly appreciated. No guarding or rigidity. - Genitourinary Genitourinary Comment(s): Voiding clear yellow urine. - Integumentary Integumentary Comment(s): Skin is warm and dry. No clubbing or cyanosis is present. Midline sternal incision is clean, dry and approximated. No drainage or redness is present. Gauze dressing is clean, dry and in place. Left lower extremity EVH site is clean, dry and approximated. No drainage or redness is present. Right pleural chest tube site dressing is clean, dry and intact. - Neurologic Neurologic Comment(s): No focal deficits. Neurologic: Present: CNII-XII intact - Musculoskeletal Musculoskeletal: Present: gait normal, generalized weakness, strength equal bilaterally - Psychiatric Psychiatric: Present: A&O x's 3, appropriate affect, intact judgment & insight - Allied health notes Allied health notes reviewed: nursing - Labs CBC & Chem 7: 04/03/19 05:12 04/03/19 05:12 Labs: Abnormal Lab Results - Last 24 Hours (Table) 04/02/19 04/02/19 04/02/19 Range/Units 11:55 17:00 20:36 WBC (3.8-10.6) k/uL RBC (3.80-5.40) m/uL Hgb (11.4-16.0) gm/dL Hct (34.0-46.0) % MCHC (31.0-37.0) g/dL RDW (11.5-15.5) % Sodium (137-145) mmol/L Chloride (98-107) mmol/L BUN (7-17) mg/dL Creatinine (0.52-1.04) mg/dL Glucose (74-99) mg/dL POC Glucose (mg/dL) 111 H 121 H 138 H (75-99) mg/dL AST (14-36) U/L ALT (9-52) U/L Total Protein (6.3-8.2) g/dL Albumin (3.5-5.0) g/dL 04/03/19 04/03/19 Range/Units 05:12 05:12 WBC 11.5 H (3.8-10.6) k/uL RBC 2.77 L (3.80-5.40) m/uL Hgb 8.5 L (11.4-16.0) gm/dL Hct 27.6 L (34.0-46.0) % MCHC 30.8 L (31.0-37.0) g/dL RDW 19.0 H (11.5-15.5) % Sodium 134 L (137-145) mmol/L Chloride 97 L (98-107) mmol/L BUN 65 H (7-17) mg/dL Creatinine 1.63 H (0.52-1.04) mg/dL Glucose 102 H (74-99) mg/dL POC Glucose (mg/dL) (75-99) mg/dL AST 39 H (14-36) U/L ALT 62 H (9-52) U/L Total Protein 4.7 L (6.3-8.2) g/dL Albumin 2.8 L (3.5-5.0) g/dL - Imaging and Cardiology Chest x-ray: report reviewed, image reviewed Assessment and Plan Assessment: 1. Aortic valve stenosis, with severe aortic valve regurgitation, status post aortic valve replacement 2. Moderate to severe mitral valve regurgitation, status post mitral valve repair 3. Single-vessel coronary artery disease, status post coronary artery bypass grafting surgery 1 vessel 4. Systolic congestive heart failure, Decreased LV function with preoperative ejection fraction of 30% 5. Hypertension 6. Hyperlipidemia 7. Hypothyroid 8. Non-critical carotid stenosis with a 50-70% right ICA stenosis 9. Acute postoperative bleeding, an unexpected outcome 10. Postoperative Hypotension, resolved 11. Chronic renal failure, baseline creatinine 1.3-1.6 12. Thrombocytopenia, reactive HIT panel negative 13. Postoperative paroxysmal atrial fibrillation, status post clip ligation of the left atrial appendage, status post cardioversion 14. Transaminitis 15. Osteoarthritis 16. Postoperative hyponatremia, unexpected 17. Postoperative pericardial effusion, an unexpected outcome, status post pericardial window 18. Postoperative right pleural effusion, an unexpected outcome, status post placement of right pleural chest tube Plan: 1. Continue to maximize medical therapy with aspirin and beta heriberto. We will increase her beta heriberto as tolerated. Currently her metoprolol tartrate is 25 mg by mouth 3 times a day. 2. Encourage use of her incentive spirometry every hour while awake. 3. Continue to hold statin. We will restart her statin once her liver enzymes have normalized. 4. Bronchodilators management per pulmonary medicine. continue Symbicort. 5. Monitor daily labs and chest x-rays. Replace electrolytes per protocol. 6. GI and DVT prophylaxis. 7. Pain control current medication regimen. No Toradol due to her elevated BUN and creatinine. 8. Avoid nephrotoxic agents. 9. Continue Iron, vitamin C. hemoglobin remains 8.5 this a.m. 10. Lasix 40 mg IV 1 today. 11. Insulin management per primary care service. 12. Increase activity as tolerated. Physical therapy/occupational therapy/cardiac rehab following. 13. Continue Eliquis 2.5 mg by mouth twice a day today. 14. Discharge planning in progress. Anticipate discharge to inpatient rehab once medically stable. 15. Continue right pleural chest tube to low continuous wall suction -20 cm H2O. 16. Transfer to [address] [place] [address] cardiac stepdown unit when bed available. 17. Continue amiodarone 200 mg by mouth twice a day for atrial fibrillation prophylaxis. 18. More recommendations to follow based on patient's clinical course. Time with Patient: Greater than 30
--- NOTE | 2019-04-03 08:49 | XR ---
EXAMINATION TYPE: XR chest 1V portable DATE OF EXAM: 04/03/2019 COMPARISON: 04/02/2019 HISTORY: Post cardiac surgery TECHNIQUE: Single frontal view of the chest is obtained. FINDINGS: Right-sided chest tube is seen. There is a 5% right apical pneumothorax. Bilateral infiltr ate and small effusion noted. Postsurgical changes and cardiomegaly. IMPRESSION: 1. Bilateral infiltrate and small effusion with 5% right apical pneumothorax.
[2019-04-03] MEDS: METOPROLOL TARTRATE 25 MG TAB PO SCH ×3 (09:25→22:38)
[2019-04-03] MEDS: CHOLECALCIFEROL 1,000 UNIT TAB PO SCH (09:29)
[2019-04-03] MEDS: ASPIRIN 81 MG PO SCH (09:29)
[2019-04-03] MEDS: APIXABAN 2.5 MG TABLET PO SCH ×2 (09:29→22:37)
[2019-04-03] MEDS: AMIODARONE 200 MG TAB PO SCH ×2 (09:29→22:36)
--- NOTE | 2019-04-03 10:03 | P.PN ---
Subjective Patient is seen in follow-up for acute kidney injury on chronic kidney disease. Renal function is mildly erythematous due to diuresis. She has been ambulating. She was given Lasix 40 mg IV once this morning. She is nonoliguric. Vital signs are stable. General: The patient appeared well nourished and normally developed. HEENT: Head exam is unremarkable. Neck is without jugular venous distension. LUNGS: Lungs are clear to auscultation and percussion. Breath sounds decreased. HEART: Rate and Rhythm are regular. First and second heart sounds normal. No murmurs, rubs or gallops. ABDOMEN: Abdominal exam reveals normal bowel sounds. Non-tender and non- distended. No evidence of peritonitis. EXTREMITITES: 1+ edema. Objective - Vital Signs Vital signs: Vital Signs Temp 98.2 F 04/03/19 04:00 Pulse 74 04/03/19 07:18 Resp 23 04/03/19 04:00 BP 108/64 04/03/19 04:00 Pulse Ox 94 L 04/03/19 04:00 Intake & Output 04/02/19 04/03/19 04/03/19 18:59 06:59 18:59 Intake Total 690 480 Output Total 2220 960 Balance -1530 -480 Intake: Oral 690 480 Output: Chest Tube Drainage 200 210 Mediastinal 0 Right Pleural 200 210 Urine 2020 750 Other: Voiding Method Toilet Toilet # Voids 1 1 # Bowel Movements 1 ABP, PAP, CO, CI - Last Documented Arterial Blood Pressure 102/67 Pulmonary Artery Pressure 38/16 Cardiac Output 4.7 Cardiac Index 2.1 - Labs CBC & Chem 7: 04/03/19 05:12 04/03/19 05:12 Labs: Abnormal Lab Results - Last 24 Hours (Table) 04/02/19 04/02/19 04/02/19 Range/Units 11:55 17:00 20:36 WBC (3.8-10.6) k/uL RBC (3.80-5.40) m/uL Hgb (11.4-16.0) gm/dL Hct (34.0-46.0) % MCHC (31.0-37.0) g/dL RDW (11.5-15.5) % Sodium (137-145) mmol/L Chloride (98-107) mmol/L BUN (7-17) mg/dL Creatinine (0.52-1.04) mg/dL Glucose (74-99) mg/dL POC Glucose (mg/dL) 111 H 121 H 138 H (75-99) mg/dL AST (14-36) U/L ALT (9-52) U/L Total Protein (6.3-8.2) g/dL Albumin (3.5-5.0) g/dL 04/03/19 04/03/19 Range/Units 05:12 05:12 WBC 11.5 H (3.8-10.6) k/uL RBC 2.77 L (3.80-5.40) m/uL Hgb 8.5 L (11.4-16.0) gm/dL Hct 27.6 L (34.0-46.0) % MCHC 30.8 L (31.0-37.0) g/dL RDW 19.0 H (11.5-15.5) % Sodium 134 L (137-145) mmol/L Chloride 97 L (98-107) mmol/L BUN 65 H (7-17) mg/dL Creatinine 1.63 H (0.52-1.04) mg/dL Glucose 102 H (74-99) mg/dL POC Glucose (mg/dL) (75-99) mg/dL AST 39 H (14-36) U/L ALT 62 H (9-52) U/L Total Protein 4.7 L (6.3-8.2) g/dL Albumin 2.8 L (3.5-5.0) g/dL Assessment and Plan Plan: Assessment: 1. Acute kidney injury secondary to ATN secondary to cardiorenal syndrome. Creatinine peaked at 2.06 this admission and is 1.63 today. UA is quite benign. No hydronephrosis noted on renal ultrasound. 2. Status post CABG, mitral valve repair and aortic valve replacement on March 19. 3. Systolic CHF with ejection fraction of 40-45%. 4. Chronic kidney disease stage III with baseline creatinine in the range of 1.1-1.5 secondary to cardiorenal syndrome. 5. Volume overload. 6. Hypervolemic hyponatremia. Better. 7. Anemia. Related to postoperative blood loss. High ferritin level noted. Stable. Plan: Status post IV Lasix 40 mg this morning. Continue to monitor renal function and urine output. Avoid nephrotoxins.
--- NOTE | 2019-04-03 10:16 | P.PN ---
Subjective Progress Note Date: 04/03/19 this is a 79-year-old femalewith history of aortic valve replacement and mitral valves repair and also single-vessel bypass surgery. Patient seemed to be gradually progressing. She was able to walk to the bathroom. She is sitting in the chair and appears to be in mild distress. She does complain of exertional shortness of breath. Patient had atrial fibrillation and was on amiodarone which was discontinued because of elevated liver enzymes.chest x-ray showed a car or megaly with elevated right hemidiaphragm and right basilar atelectasis. Patient did require some blood transfusion following reexploration for bleeding. Her creatinine is 1.49. Hemoglobin is 7.6. AST 221 on the Altace to 92.pat ient is making slow but gradual progress. 03/25/2019: This patient is status post aortic: Placement and mitral valve repair. He also had a single-vessel bypass surgery. Patient is a is sitting up in the chair. Able to walk 100 feet or so. . Still appears to be tachypneic. Denies any chest pain. Patient remains in atrial fibrillation with the reasonable [place] controlled heart rate. She is on amiodarone. She is being initiated on anticoagulation therapy. A chest x-ray findings are stable. Her BUN/creatinine are slightly going up. Her liver enzymes are still on the higher side. Lungs show diminished air exchange. Heart is irregular. She is on IV Lasix. The dose may be cut back. Further recommendation will depend upon the clinical course. 04/03/2019: This patient had a prolonged stay in the hospital. She had a thoracocentesis and also pericardiocentesis. Seemed to be feeling better. Still seemed to be sleepy. Denies any chest pain. Apparently the mediastinal chest tube is removed. There is still pleural chest tube which is draining moderate amount of fluid. No arrhythmias. Otherwise patient seems gradually improving Objective - Vital Signs Vital signs: Vital Signs Temp 98.2 F 04/03/19 04:00 Pulse 74 04/03/19 07:18 Resp 23 04/03/19 04:00 BP 108/64 04/03/19 04:00 Pulse Ox 94 L 04/03/19 04:00 Intake & Output 04/02/19 04/03/19 04/03/19 18:59 06:59 18:59 Intake Total 690 480 Output Total 2220 960 Balance -1530 -480 Intake: Oral 690 480 Output: Chest Tube Drainage 200 210 Mediastinal 0 Right Pleural 200 210 Urine 2020 750 Other: Voiding Method Toilet Toilet # Voids 1 1 # Bowel Movements 1 ABP, PAP, CO, CI - Last Documented Arterial Blood Pressure 102/67 Pulmonary Artery Pressure 38/16 Cardiac Output 4.7 Cardiac Index 2.1 - Exam GENERAL EXAM: Patient is alert and oriented and doesn't appear to be in any acute distress HEENT: Normocephalic. Normal reaction of pupils, equal size, normal range of extraocular motion. No erythema or exudates in the throat. NECK: No masses, no nuchal rigidity. CHEST: No chest wall deformity. LUNGS: iminished air exchange HEART: [S1 and S2 normal with no audible mumurs or gallops. irregular rhythm ABDOMEN: No hepatosplenomegaly, normal bowel sounds, no guarding or rigidity. SKIN: No rashes CENTRAL NERVOUS SYSTEM: No focal deficits. EXTREMITIES: [No cyanosis, clubbing or edema.]axilla defaults - Labs CBC & Chem 7: 04/03/19 05:12 04/03/19 05:12 Labs: Abnormal Lab Results - Last 24 Hours (Table) 04/02/19 04/02/19 04/02/19 Range/Units 11:55 17:00 20:36 WBC (3.8-10.6) k/uL RBC (3.80-5.40) m/uL Hgb (11.4-16.0) gm/dL Hct (34.0-46.0) % MCHC (31.0-37.0) g/dL RDW (11.5-15.5) % Sodium (137-145) mmol/L Chloride (98-107) mmol/L BUN (7-17) mg/dL Creatinine (0.52-1.04) mg/dL Glucose (74-99) mg/dL POC Glucose (mg/dL) 111 H 121 H 138 H (75-99) mg/dL AST (14-36) U/L ALT (9-52) U/L Total Protein (6.3-8.2) g/dL Albumin (3.5-5.0) g/dL 04/03/19 04/03/19 Range/Units 05:12 05:12 WBC 11.5 H (3.8-10.6) k/uL RBC 2.77 L (3.80-5.40) m/uL Hgb 8.5 L (11.4-16.0) gm/dL Hct 27.6 L (34.0-46.0) % MCHC 30.8 L (31.0-37.0) g/dL RDW 19.0 H (11.5-15.5) % Sodium 134 L (137-145) mmol/L Chloride 97 L (98-107) mmol/L BUN 65 H (7-17) mg/dL Creatinine 1.63 H (0.52-1.04) mg/dL Glucose 102 H (74-99) mg/dL POC Glucose (mg/dL) (75-99) mg/dL AST 39 H (14-36) U/L ALT 62 H (9-52) U/L Total Protein 4.7 L (6.3-8.2) g/dL Albumin 2.8 L (3.5-5.0) g/dL Assessment and Plan (1) Status post aortic valve replacement Current Visit: Yes Status: Acute Code(s): Z95.2 - PRESENCE OF PROSTHETIC HEART VALVE SNOMED Code(s): 2940070850853 (2) History of mitral valve repair Current Visit: Yes Status: Acute Code(s): Z98.890 - OTHER SPECIFIED POSTPROCEDURAL STATES SNOMED Code(s): 948014051 (3) Cardiomyopathy Current Visit: Yes Status: Acute Code(s): I42.9 - CARDIOMYOPATHY, UNSPECI FIED SNOMED Code(s): 42730529 (4) Postoperative atrial fibrillation Current Visit: Yes Status: Acute Code(s): I97.89 - OTH POSTPROC COMP AND DISORDERS OF THE CIRC SYS, NEC; I48.91 - UNSPECIFIED ATRIAL FIBRILLATION SNOMED Code(s): 75750493 Plan: Patient is feeling much better since pericardiocentesis and thoracocentesis. Increase activity. Incentive spirometry
[2019-04-03 12:09] LABS: Glucose,Whole Blood 113 mg/dL (75-99)
[2019-04-03] MEDS: ACETAMINOPHEN TAB 500 MG TAB PO PRN ×2 (12:57→22:53)
--- NOTE | 2019-04-03 13:36 | P.PN ---
Subjective Progress Note Date: 04/03/19 This is a 79-year-old female status post CABG X1, aortic valve replacement with bioprosthetic valve, mitral valve repair in a patient with severe aortic valve stenosis, moderate to severe mitral valve regurgitation, CAD, ischemic cardiomyopathy-preop EF 30%, pulmonary hypertension, hypertension, hypothyro idism and multiple other medical issues. Shortly after returning to ICU postop, she developed increased chest tube ouput of 1.3 L over 1-1/2 hours, returned to the OR and required emergent reexploration of the chest with evacuation of clots, control bleeding, placement of IABP. Mediastinal and left pleural chest tube drainage improved. This morning IABP weaned to 1:3 with plans for discontinuing this morning. Continuies on DIprovan, Levophed, Primacor and insulin drips. Cardiac output 7.4, cardiac index 3.4. Maintained on mechanical ventilation with FiO2 40%/+5 of PEEP. Chest x-ray reporting bilateral consolidation and pleural effusion. Telemetry accelerated junctional. 03/21/2019 Extubated yesterday evening.Maintaining O2 sats in the high 90s on 4 L nasal cannula. Incentive spirometer 800 to 1000. Maintained on insulin and Levophed drips. Recent cardiac output/cardiac index 6.1/2.8 .Developed atrial fibrillation last night, received digoxin. Remains in atrial fibrillation, receiving amiodarone bolus with drip pending. Magnesium 2.2, potassium 4.7. Hemoglobin remains stable at 8.5, platelets 62. creatinine 1.26 .Pain controlled. 03/22/2019 maintained on insulin, amiodarone, Levophed drips. Telemetry atrial fibrillation. Amiodarone discontinued secondary to elevated transminases; continues on metoprolol. Arixtra initiated. IS up to 1000. Maintaining O2 sats in the high 90s on 4 L nasal cannula. Chest x-ray reporting mild central vascular congestion, small bilateral pleural effusions and bibasilar acute infiltrates versus atelectasis-no significant change. Maintained on Lasix IV push with 24-hour I&O reflecting a positive fluid balance. 24-hour I&O reflects mediastinal chest tube for 417mls and left pleural chest tube 190mls in the next 24 hours.Hemoglobin 7.8, platelets 57. CO/CI 4.7/2.1. Creatinine 1.37. T-max 100.8, WBC 16.7. Blood sugars controlled. 03/23/2019 All drips have been weaned off. Cardiology discussing removing both pleural and mediastinal chest tubes today .Telemetry controlled atrial fibrillation on beta heriberto. Mild shortness of breath, maintaining O2 sats in the mid 90s on 3 L nasal cannula. Chest x-ray reporting bilateral atelectasis, stable small effusion, fluid overload. IS up to 750. Diuresing well on Lasix IV push with 24-hour I&O reflecting a negative fluid balance. 03/26/19 Sitting up in chair, continues to improve. Diuresing well with edema improving. Bicarb 34, sodium level 130, hemoglobin 7.[address] pending.Incentive spirometer up to almost 1000. Maintaining O2 sats in the mid 90s on room air. LFTs trending down. Controlled proximal atrial fibrillation, on Eliquis. Has not yet walked today, but states did ambulate yesterday in the hallway. Potassium of 3.4 being supplemented. 03/27/2019 sitting up in chair, maintaining O2 sats in the high 90s on 2 L nasal cannula.IS up to 1000. Ambulated in the hallway -Complains of mild shortness of breath, exertional shortness of breath. Chest x-ray reporting basilar effusions, atelectasis. Anticoagulated with Eliquis. Hemoglobin 7.6. Afebrile, WBC 14.5. Creatinine up to 1.83, Lasix discontinued. Sodium 131, fluid restrictions maintained. Developed paroximal atrial fibrillation last night, amiodarone drip initiated. Telemetry currently sinus rhythm with occasional PVC. amiodarone drip converted to oral. Bradycardic,Beta heriberto dose decreased. AST 107, ALT 319, T bili 1.2, statin remains on hold. Blood sugars controlled. Afebrile. 03/28/2019 telemetry sinus rhythm with occasional accelerated junctional rhythm, bradycardic at times with heart rates in the 50s. Borderline hypotension with MAP in the low 70s. Maintaining O2 sats low 90s to 95% on room air .Sitting up in chair, and does not feel well, complains of increased shortness of breath, fatigue. Pale appearance. Hgb 7.4, scheduled for transfusion of packed RBCs amiodarone discontinued as LFTs remain elevated, mildly improved with T bili up to 1.5. 24-hour I&O reflecting a negative fluid balance. Chest x-ray reporting cardiomegaly, possible interstitial edema, pulmonary venous hypertension, bibasilar effusions, atelectasis, prominent aorta with no evidence of pneumothorax. Incentive spirometer up to 750. 03/29/2019 Reports less fatigue this morning, shortness of breath, positive surgical site chest pain. yesterday she received 1 unit of packed RBCs, albumin with current hemoglobin at 8.0. Creatinine 1.84. Controlled atrial fibrillati on earlier this morning with reported multiple nonsustained runs of V. tach. Received additional Lopressor. Magnesium 2.30, potassium 4.2, bicarb 31. Maintaining O2 sats in the mid 90s on room air, 99% on 2 L nasal cannula. Chest x-ray pending. IS decreased to 500.Systolic blood pressure currently in the 90s. Telemetry currently reported patient converted to sinus bradycardia, heart rate in the 50s. LFTs continue to trend down slowly, T bili up to 1.8. 03/30/2019 maintaining O2 sats in the mid to high 90s on room air, complains of periodic shortness of breath at rest as well as exertional shortness of breath. IS up to 750. Chest x-ray reporting similar with probable bibasilar atelectasis, small effusions, stable cardiomegaly, aortic aneurysm. Telemetry atrial fibrillation , T bili 1.5, LFTs improving. Hemoglobin 8.5. Repeat echo reporting moderate paracardial effusion.Creatinine 1.89. Afebrile, WBC increased to 16.8. 04/02/2019 currently in the ICU, postop day #2 paracardial window, placement of right pleural chest tube and synchronized cardioversion. Yesterday she received amiodarone bolus, converted to sinus rhythm this morning . Feels better,sitting up in recliner, no acute distress with significant improvement in shortness of breath. Incentive spirometer up to 1000. Renal function stable. Chest x-ray reporting persistent widening of the mediastinum, further reviewed as per cardiothoracic surgery. Mediastinal chest tube discontinued. 04/03/2019 Off all drips, hemodynamically stable. Telemetry normal sinus rhythm sitting up in chair, no acute distress. Chest x-ray reporting bilateral infiltrate, small effusion with 5% right apical pneumothorax. Maintaining O2 sats of 94-95% on room air. Incentive spirometer up to 1000. Reports less short ness of breath. She ambulated in the hallway today, tolerated exertion well. Positive bowel movement yesterday. Blood sugars controlled. Creatinine 1.63. Objective - Vital Signs Vital signs: Vital Signs Temp 98.2 F 04/03/19 04:00 Pulse 74 04/03/19 07:18 Resp 23 04/03/19 04:00 BP 108/64 04/03/19 04:00 Pulse Ox 94 L 04/03/19 04:00 Intake & Output 04/02/19 04/03/19 04/03/19 18:59 06:59 18:59 Intake Total 690 480 Output Total 2220 960 Balance -1530 -480 Intake: Oral 690 480 Output: Chest Tube Drainage 200 210 Mediastinal 0 Right Pleural 200 210 Urine 2020 750 Other: Voiding Method Toilet Toilet # Voids 1 1 # Bowel Movements 1 ABP, PAP, CO, CI - Last Documented Arterial Blood Pressure 102/67 Pulmonary Artery Pressure 38/16 Cardiac Output 4.7 Cardiac Index 2.1 - Exam PHYSICAL EXAM: VITAL SIGNS: As above GENERAL: Sitting up in chair, no acute distress HEENT: Conjunctivae normal. eyes normal. Oral mucosa moist NECK: No JVD. No thyroid enlargement. CARDIOVASCULAR: S1, S2 , regular No murmur, rubs or gallops. RESPIRATION: Nonlabored, Breath sounds diminished in the bases, right base course with fine crackles. No rhonchi, or wheezes.Right-sided chest tube present with serous drainage ABDOMEN: Soft, nontender . No guarding. no masses palpable. Positive Bowel sounds. LEGS: Decreasing Mild edema, positive peripheral pulses, LAUREL hose. PSYCHIATRY: Alert and oriented 3, mood and affect normal NERVOUS SYSTEM: Cranial nerves II through XII grossly intact, moves all 4 extremities, mild diffuse generalized weakness. No focal deficits. Skin: no rashes. - Labs CBC & Chem 7: 04/03/19 05:12 04/03/19 05:12 Labs: Abnormal Lab Results - Last 24 Hours (Table) 04/02/19 04/02/19 04/02/19 Range/Units 11:55 17:00 20:36 WBC (3.8-10.6) k/uL RBC (3.80-5.40) m/uL Hgb (11.4-16.0) gm/dL Hct (34.0-46.0) % MCHC (31.0-37.0) g/dL RDW (11.5-15.5) % Sodium (137-145) mmol/L Chloride (98-107) mmol/L BUN (7-17) mg/dL Creatinine (0.52-1.04) mg/dL Glucose (74-99) mg/dL POC Glucose (mg/dL) 111 H 121 H 138 H (75-99) mg/dL AST (14-36) U/L ALT (9-52) U/L Total Protein (6.3-8.2) g/dL Albumin (3.5-5.0) g/dL 04/03/19 04/03/19 Range/Units 05:12 05:12 WBC 11.5 H (3.8-10.6) k/uL RBC 2.77 L (3.80-5.40) m/uL Hgb 8.5 L (11.4-16.0) gm/dL Hct 27.6 L (34.0-46.0) % MCHC 30.8 L (31.0-37.0) g/dL RDW 19.0 H (11.5-15.5) % Sodium 134 L (137-145) mmol/L Chloride 97 L (98-107) mmol/L BUN 65 H (7-17) mg/dL Creatinine 1.63 H (0.52-1.04) mg/dL Glucose 102 H (74-99) mg/dL POC Glucose (mg/dL) (75-99) mg/dL AST 39 H (14-36) U/L ALT 62 H (9-52) U/L Total Protein 4.7 L (6.3-8.2) g/dL Albumin 2.8 L (3.5-5.0) g/dL Assessment and Plan Assessment: -Status post CABG 1 with Aortic and Mitral valve repair with left atrial appendage exclusion, secondary to severe aortic valve stenosis and moderate to severe mitral valve regurgitation. Bioprosthetic aortic valve. -Acute postoperative bleeding, unexpected outcome, status post emergent reexploration, evacuation of clot and control of bleeding, status post placement of IABP. -Acute blood loss anemia secondary to the above, status post transfusions of multiple products; RBCs, cryoprecipitate, FFP, platelets -Postoperative hypotension, secondary to hemorrhagic shock, unexpected outcome, status post pressor dependent -Pericardial effusion status post pericardial window -Postoperative right pleural effusion, status post placement of right pleural chest tube - Synchronized cardioversion -Thrombocytopenia -Postoperative paroximal atrial fibrillation -Secondary pulmonary hypertension -Chronic systolic CHF, Ischemic cardiomyopathy, preop EF 30%, improved post surgery EF 40-45%. -Hyperlipidemia -Hypertension, history of -Hypothyroidism -Right ICA stenosis 50-70% -History of nicotine dependence -Acute on chronic renal failure, stage III, secondary to cardiorenal syndrome. -Hyponatremia, hypervolemic -Transaminitis -Nonsustained runs of V. tach -Moderate sized pericardial effusion per echo -Leukocytosis Plan: Continue current medication regime ,monitoring and symptomatic treatment. Nebulized bronchodilators.Maintain aggressive pulmonary toileting with incentive spirometer reinforced. Continue increasing activity as tolerated. PT/OT Close monitoring of renal function, electrolytes. Telemetry bed pending. Further recommendations to follow. The impression and plan of care has been dictated as directed. : I performed a history and examination of this patient, discussed the same with the dictator. I agree with the dictator's note ,documented as a scribe. Any additional findings or plans will be noted. Time taken: 35 minutes.
--- NOTE | 2019-04-03 14:15 | P.PN ---
Subjective Progress Note Date: 04/03/19 Principal diagnosis: Aortic valve stenosis with severe aortic valve regurgitation status post aortic valve replacement. And status post pericardial window for pericardial effusion. This is a 79-year-old white female patient of Dr. Mati Vale, with a known history of aortic stenosis and regurgitation, hypertension, hyperlipidemia, hypothyroidism, moderate noncritical carotid artery stenosis, who was found to have significant decrease in LV function based on her echocardiogram in December 2018 with systolic/diastolic dysfunction. Recent underwent transesophageal echocardiogram on 02/05/2019 showing sclerotic and calcific aortic valve with severe aortic stenosis with area of the aortic valve calculated in the range of 1-1.1. There was moderate degree of mitral regurgitation, severely impaired left ventricle systolic function with estimated ejection fraction of 30%, and no evidence of thrombus in the left atrial appendage. Catheterization showed diffusely diseased LAD distally, RCA was dominant and disease free, circumflex had a 60-70% mid lesion. Yesterday on 03/19/2019 patient underwent aortic valve replacement with a #23 mm a villous hypostatic [employer] aortic valve, mitral valve repair with a #30 mm [employer] annular flex band, and single-vessel coronary artery bypass grafting with reverse SVG to the circumflex and ligation of the left atrial appendage with a #35 mm Atriclip. The patient is seen today 03/27/2019 in follow-up on the selective care unit. She is currently sitting up in a chair at the bedside. Awake and alert in no acute distress. She is currently maintaining good O2 saturations in the upper 90s on 2 L/m per nasal cannula. She's been afebrile. Hemodynamically stable. White count 14.5. Hemoglobin 7.6. Creatinine 1.83. AST 107. ALT 319. She is status post 6 units of packed red blood cells. She remains on amiodarone. Anticoagulated with Eliquis. Continued on bronchodilators. She is working well with the incentive spirometer. Needs increased encouragement. Today's chest x- ray was reviewed. No plans for thoracentesis at this point. The patient is seen today 03/28/2019 in follow-up on the selective care unit. Currently sitting up in a chair at the bedside. Awake and alert in no acute distress. Chest x-ray reveals cardiomegaly, possible interstitial edema with pulmonary venous hypertension. Some small basilar effusions/atelectasis. Somewhat more fatigued today as compared to yesterday. Pale. White count 14.8. Hemoglobin 7.4. Creatinine 2.06. AST 553. ALT 627. On 03/29/2019 the patient is looking slightly better. Breathing easier. Pulling approximately 1100 on the incentive spirometer. No cough or sputum production. We'll doing percussion and vibration to the right lower chest area. Remains in sinus rhythm. Off amiodarone. LFTs are improving. Creatinine is at 1.84 which is lower than yesterday. Sodium level is at 129. No new complaints otherwise for now. No chest pain. No palpitation. Hemoglobin stable at 8.0 On 03/30/2019 patient is still short of breath. Despite her being on room air oxygen, the patient is still struggling with her breathing and she short of breath. She is using incentive spirometer. A repeat echo cardiac exam was done and the patient was found to have moderate amount of pericardial effusion. Also, she is back to atrial fibrillation. LFTs are improving. The white cell count is at 16.8. Hemoglobin is at 8.5. Renal function shows a creatinine of 1.8. No other significant events overnight. The plan is for this patient to be ventilated by cardiac thoracic surgery in consultation for a cardiocentesis versus pericardial window. As for the right lung finding, the patient continues to diminished breath on the right lung base due to a combination of atelectasis/effusion. The echocardiogram showed an ejection fraction of 40-45%. The left ventricle was mildly dilated. There is mild to moderate impairment of the ejection fraction. On 03/31/2019 the patient is again postop. The patient underwent a pericardial window. The patient also underwent a right-sided chest tube insertion. The patient underwent cardioversion and operating room. There was a total of 700 mL of pleural fluid drained from the right lung and there was another 400 mL of pericardial effusion that was drained. Initially the patient had a successful cardioversion to sinus rhythm. After arriving to the ICU the patient went back into atrial fibrillation. The patient was given a bolus of amiodarone 150 mg and she'll be maintained on oral amiodarone. Chest tube is in place. Pericardial tube is in place. She is hemodynamically stable. She is not having any significant shortness of breath. Resting comfortably in bed. The LFTs are improving still. The creatinine is also improving is down to 1.7. No other significant events since the surgery and the patient is resting comfortably in bed. Chest x-ray was noted. On 04/01/2019 I'm seeing the patient for a follow-up. The patient intensive care unit. The pleural chest tube in the cardiac chest tube will be . The output from the chest tubes were noted. This patient is using the incentive spirometer. The patient is pulling up to thousand. Pulse ox is 94% on room air. Cardiac rhythm is still atrial fibrillation and the rate is controlled for now. The patient was given oral amiodarone. The patient had a lower blood pressure earlier this morning and the patient was given a bolus of normal saline. She is producing adequate amount of urine output. The chest tubes are all in place. There is no evidence of any air leak. Output is serosanguineous. No altered mentation. No other significant events overnight. The chest x-ray from today showed cardiomegaly and bibasilar infiltrates and small effusions. There is also widening of the vascular pedicle this is related to vascular ectasia. Reevaluated today on 04/02/2019, patient remains in the ICU, quite comfortable, in no distress, doing extremely well with incentive spirometry. She is now postoperative day #14, aortic valve replacement and emergent reexploration of the chest with evacuation of clots and control of bleeding. Placement of intra- aortic balloon pump. Postoperative day #2 pericardial window placement of right pleural chest tube and synchronized cardioversion. Reevaluated today on 04/03/2019, patient is postoperative day #15, sitting at a bedside chair, remains in the ICU. Hemodynamically stable, not requiring any pressors or inotropes. Tolerating oral intake well, patient has O2 saturation about 94% on room air, and she is achieving 1000 mL with incentive spirometry. Had fairly good amount of serosanguineous drainage from her chest tube/right pleural, and it remains in place. Her subxiphoid chest tube was removed yesterday. Renal profile is slightly worse than yesterday, creatinine is up to 1.6. Objective - Vital Signs Vital signs: Vital Signs Temp 98.2 F 04/03/19 04:00 Pulse 70 04/03/19 11:01 Resp 23 04/03/19 04:00 BP 108/64 04/03/19 04:00 Pulse Ox 94 L 04/03/19 04:00 Intake & Output 04/02/19 04/03/19 04/03/19 18:59 06:59 18:59 Intake Total 690 480 Output Total 2220 960 Balance -1530 -480 Intake: Oral 690 480 Output: Chest Tube Drainage 200 210 Mediastinal 0 Right Pleural 200 210 Urine 2020 750 Other: Voiding Method Toilet Toilet # Voids 1 1 # Bowel Movements 1 ABP, PAP, CO, CI - Last Documented Arterial Blood Pressure 102/67 Pulmonary Artery Pressure 38/16 Cardiac Output 4.7 Cardiac Index 2.1 - Exam Physical Exam: Revealed 79-year-old female in no distress. Head: Atraumatic, normocephalic. HEENT:[Neck is supple.] [No neck masses.] [No thyromegaly.] [No JVD.] Chest: Diminished breath sounds at the bases no crackles or rhonchi or wheezes. Symmetrical chest expansion noted. Right-sided chest tube is noted. Cardiac Exam: [Normal S1 and S2, no S3 gallop, no murmur.] Abdomen: [Soft, nontender, no megaly, no rebound, no guarding, normal bowel sounds.] Extremities: [No clubbing, no edema, no cyanosis.] Neurological Exam: [No focal neurologic deficit.] Alert oriented 3. Psychiatric: Normal mood, affect and normal mental status examination. Skin: No rashes. - Labs CBC & Chem 7: 04/03/19 05:12 04/03/19 05:12 Labs: Abnormal Lab Results - Last 24 Hours (Table) 04/02/19 04/02/19 04/03/19 Range/Units 17:00 20:36 05:12 WBC 11.5 H (3.8-10.6) k/uL RBC 2.77 L (3.80-5.40) m/uL Hgb 8.5 L (11.4-16.0) gm/dL Hct 27.6 L (34.0-46.0) % MCHC 30.8 L (31.0-37.0) g/dL RDW 19.0 H (11.5-15.5) % Sodium (137-145) mmol/L Chloride (98-107) mmol/L BUN (7-17) mg/dL Creatinine (0.52-1.04) mg/dL Glucose (74-99) mg/dL POC Glucose (mg/dL) 121 H 138 H (75-99) mg/dL AST (14-36) U/L ALT (9-52) U/L Total Protein (6.3-8.2) g/dL Albumin (3.5-5.0) g/dL 04/03/23 03// Range/Units 05:12 11:57 WBC (3.8-10.6) k/uL RBC (3.80-5.40) m/uL Hgb (11.4-16.0) gm/dL Hct (34.0-46.0) % MCHC (31.0-37.0) g/dL RDW (11.5-15.5) % Sodium 134 L (137-145) mmol/L Chloride 97 L (98-107) mmol/L BUN 65 H (7-17) mg/dL Creatinine 1.63 H (0.52-1.04) mg/dL Glucose 102 H (74-99) mg/dL POC Glucose (mg/dL) 113 H (75-99) mg/dL AST 39 H (14-36) U/L ALT 62 H (9-52) U/L Total Protein 4.7 L (6.3-8.2) g/dL Albumin 2.8 L (3.5-5.0) g/dL Assessment and Plan Assessment: Impression: Severe aortic valve stenosis, status post bioprosthetic aortic valve replacement, postoperative day # 15 Moderate to severe mitral regurgitation, status post mitral valve repair postoperative day # 15 Single vessel coronary artery disease status post CABG 1 postoperative day # 15 Severe ischemic cardiomyopathy and LV dysfunction ejection fraction was 30% improved to 45% post surgery. Pericardial effusion requiring pericardial window postoperative day #3 Multiple comorbidities including hypertension, hyperlipidemia, hypothyroidism, osteoarthritis, acute on chronic renal failure, acute postoperative bleeding, unexpected, postoperative atrial fibrillation, expected, status post synchronized cardioversion, postoperative pericardial effusion unexpected status post pericardial window, postoperative right pleural effusion requiring a right sided chest tube placement. Expected. Recommendation: Continue present treatment plan including low-dose aspirin, beta blockers, Eliquis, amiodarone, strict I's and O's, encourage incentive spirometry, bronchodilators, increase activity, continue GI and DVT prophylaxis, continue insulin, continue pain control, diurese on a daily basis as needed. We'll continue to follow. Time with Patient: Less than 30
[2019-04-03] MEDS ORDERED: FUROSEMIDE 10 MG/ML 4 ML VIAL IV ONE (16:00)
[2019-04-03 16:59] LABS: Glucose,Whole Blood 135 mg/dL (75-99)
[2019-04-03] MEDS ORDERED: POTASSIUM CHLORIDE ER 10 MEQ TAB.ER.PRT PO ONE (17:30)
[2019-04-03] MEDS: SENNOSIDES-DOCUSATE SODIUM 1 EACH TAB PO SCH (22:37)
[2019-04-04 05:19] LABS: Anisocytosis Slight; HCT 28.2 % (34.0-46.0); HGB 8.5 gm/dL (11.4-16.0); Hypochromasia Marked; MCHC 30.2 g/dL (31.0-37.0); MCV 102.8 fL (80.0-100.0); Macrocytosis Moderate; Mean Platelet Volume 7.3; Platelet Count 167 k/uL (150-450); RBC 2.74 m/uL (3.80-5.40); RDW 19.5 % (11.5-15.5); WBC 10.9 k/uL (3.8-10.6)
[2019-04-04 05:36] LABS: Albumin 2.8 g/dL (3.5-5.0); Calcium 8.6 mg/dL (8.4-10.2); Total Bilirubin 1.1 mg/dL (0.2-1.3); Total Protein 4.7 g/dL (6.3-8.2)
[2019-04-04 05:56] LABS: Potassium 4.1 mmol/L (3.5-5.1)
[2019-04-04] MEDS: INSULIN ASPART (NovoLOG) 100 UNIT/ML VIAL SQ SCH ×4 (06:17→21:45)
[2019-04-04] MEDS: FERROUS SULFATE 325 MG TAB PO SCH ×2 (06:21→16:40)
[2019-04-04] MEDS: ASCORBIC ACID 500 MG TAB PO SCH ×2 (06:21→16:40)
[2019-04-04] MEDS: PANTOPRAZOLE 40 MG TABLET PO SCH (06:21)
[2019-04-04] MEDS: LEVOTHYROXINE 50 MCG TAB PO SCH (06:21)
[2019-04-04 06:28] LABS: Glucose,Whole Blood 106 mg/dL (75-99)
[2019-04-04] MEDS ORDERED: FUROSEMIDE 10 MG/ML 4 ML VIAL IV STA ×2 (07:36→16:00)
--- NOTE | 2019-04-04 08:16 | XR ---
EXAMINATION TYPE: XR chest 1V DATE OF EXAM: 04/04/2019 COMPARISON: Prior chest x-ray 04/03/2019 HISTORY: Postop cardiac surgery TECHNIQUE: Single frontal view of the chest is obtained. FINDINGS: Right-sided chest tube remains in place. Patient is post median sternotomy and atrial appe ndage clipping is patent. Mediastinum is stable widened, heart remains enlarged. There is basilar den sity obscuring the left hemidiaphragm. No evident pneumothorax. There are overlying artifacts. The mi nimal right apical pneumothorax is no longer seen, patient is rotated. IMPRESSION: Pneumothorax no longer evident. Probable left lower lobe atelectasis and associated effu kate. Cardiomegaly.
--- NOTE | 2019-04-04 08:37 | P.PN ---
Subjective Progress Note Date: 04/04/19 Principal diagnosis: Severe aortic valve stenosis, moderate to severe mitral valve regurgitation, single-vessel coronary artery disease, and a decreased LV function, chronic systolic heart failure with a preoperative ejection fraction of 30%. History of hypertension, hyperlipidemia, hypothyroid, osteoarthritis, chronic renal failure with baseline creatinine 1.3-1.6, right internal carotid artery stenosis 50-70%, previous tobacco dependance with preoperative FEV1 93% of predicted. POD #16 aortic valve replacement with a #23 mm Avalus bioprosthetic Medtronic aortic valve, mitral valve repair with a #30 mm Carbomedics AnnuloFlex band. Coronary artery bypass grafting 1 vessel with a reverse greater saphenous vein off the aorta to the circumflex coronary artery and a clip ligation of the left atrial appendage with a 35 mm Atriclip. Endoscopic harvesting of the left gr eater saphenous vein. Intraoperative transesophageal echocardiogram. Acute postoperative bleeding, an unexpected outcome. Reactive thrombocytopenia, expected, resolved. POD #16 Emergent re-exploration of the chest, evacuation of clots and control of bleed. Placement of intra-aortic balloon pump. Post operative paroxysmal atrial fibrillation, unexpected. Transaminitis, unexpected. Postoperative pericardial effusion, an unexpected outcome. POD #4 pericardial window, placement of right pleural chest tube and synchronized cardioversion. Postoperative right pleural effusion, an unexpected outcome. Patient is sitting up to the bedside chair in the intensive care unit. She is in no acute distress. She reports that she is feeling much better each day, denies any complaints of pain or shortness of breath this time. Oxygen saturation are 94% on room air. She is achieving 1000 mL on her incentive spirometry. She reports that she ambulated in the intensive care unit hallway yesterday 4 times with minimal assistance. She remains with a right pleural chest tube in place draining thin serosanguineous drainage. No air leak is present. 400 mL output in the last 24 hours. Bedside telemetry showing normal sinus rhythm with bundle branch block and occasional PVC with a heart rate of 75. She is awaiting a bed on the stepdown unit. Lasix 40 mg IV 2 doses were given yesterday and she had 3.7 L of urine output in 24 hours. She remains hemodynamically stable and is currently on no inotropic or pressor support. She is complaining of a sore throat and hoarseness and is concerned that the Symbicort is causing her sore throat and is requesting it be discontinued. Objective - Vital Signs Vital signs: Vital Signs Temp 98.1 F 04/04/19 00:00 Pulse 69 04/04/19 04:00 Resp 14 04/04/19 04:00 BP 94/58 04/04/19 04:00 Pulse Ox 93 L 04/04/19 04:00 Intake & Output 04/03/19 04/04/19 04/04/19 18:59 06:59 18:59 Intake Total 480 Output Total 2770 1420 Balance -2290 -1420 Weight 114.6 kg 116.6 kg Intake: Oral 480 Output: Chest Tube Drainage 370 120 Right Pleural 370 120 Urine 2400 1300 Other: Voiding Method Bedside Commode Bedside Commode # Voids 0 ABP, PAP, CO, CI - Last Documented Arterial Blood Pressure 102/67 Pulmonary Artery Pressure 38/16 Cardiac Output 4.7 Cardiac Index 2.1 - Constitutional General appearance: Present: cooperative, no acute distress, obese - Respiratory Details: Lung sounds are essentially clear to her bilateral upper lobes, few scattered crackles to her bilateral bases right greater than left. Respirations are symmetrical and nonlabored. Oxygen saturation is 94% on room air. Achieving 1000 mL on her incentive spirometry. Right pleural chest tube in place to low continuous wall suction -20 cm H2O. No air leak is present. Draining thin serous drainage. 400 mL output in the last 24 hours. - Cardiovascular Details: Regular rhythm and rate. S1 and S2 present, negative for S3, gallop or murmur. Sternum is stable. Bedside telemetry showing normal sinus rhythm with bundle branch block and occasional PVC heart rate 75. Heart hugger is in place and she is demonstrating appropriate use. Knee-high LAUREL hose and sequential compression devices in place to bilateral lower extremities. +1 edema to her bilateral lower extremities. - Gastrointestinal Gastrointestinal Comment(s): Abdomen is soft, nontender and nondistended. Active bowel sounds all 4 abdominal quadrants. No guarding or rigidity. No organomegaly. Tolerating oral intake. - Genitourinary Genitourinary Comment(s): Voiding clear yellow urine. - Integumentary Integumentary Comment(s): Skin is warm and dry. No clubbing or cyanosis is present. Midline sternal incision is clean, dry and approximated. No drainage witnesses present. Gauze dressing is clean and intact to her midline sternal incision. Left lower extremity EVH site is clean, dry and approximated. No drainage or redness is present. Right pleural chest tube dressing is clean, dry and intact. - Neurologic Neurologic Comment(s): No focal deficits. Neurologic: Present: CNII-XII intact - Musculoskeletal Musculoskeletal: Present: gait normal, generalized weakness, strength equal bilaterally - Psychiatric Psychiatric: Present: A&O x's 3, appropriate affect, intact judgment & insight - Allied health notes Allied health notes reviewed: nursing - Labs CBC & Chem 7: 04/04/19 04:54 04/04/19 04:54 Labs: Abnormal Lab Results - Last 24 Hours (Table) 04/03/19 04/03/19 04/04/19 Range/Units 11:57 16:48 04:54 WBC 10.9 H (3.8-10.6) k/uL RBC 2.74 L (3.80-5.40) m/uL Hgb 8.5 L (11.4-16.0) gm/dL Hct 28.2 L (34.0-46.0) % MCV 102.8 H (80.0-100.0) fL MCHC 30.2 L (31.0-37.0) g/dL RDW 19.5 H (11.5-15.5) % Sodium (137-145) mmol/L Carbon Dioxide (22-30) mmol/L BUN (7-17) mg/dL Creatinine (0.52-1.04) mg/dL POC Glucose (mg/dL) 113 H 135 H (75-99) mg/dL AST (14-36) U/L Total Protein (6.3-8.2) g/dL Albumin (3.5-5.0) g/dL 04/04/19 04/04/19 Range/Units 04:54 06:16 WBC (3.8-10.6) k/uL RBC (3.80-5.40) m/uL Hgb (11.4-16.0) gm/dL Hct (34.0-46.0) % MCV (80.0-100.0) fL MCHC (31.0-37.0) g/dL RDW (11.5-15.5) % Sodium 134 L (137-145) mmol/L Carbon Dioxide 31 H (22-30) mmol/L BUN 63 H (7-17) mg/dL Creatinine 1.58 H (0.52-1.04) mg/dL POC Glucose (mg/dL) 106 H (75-99) mg/dL AST 45 H (14-36) U/L Total Protein 4.7 L (6.3-8.2) g/dL Albumin 2.8 L (3.5-5.0) g/dL - Imaging and Cardiology Chest x-ray: report reviewed, image reviewed Assessment and Plan Assessment: 1. Aortic valve stenosis, with severe aortic valve regurgitation, status post aortic valve replacement 2. Moderate to severe mitral valve regurgitation, status post mitral valve repair 3. Single-vessel coronary artery disease, status post coronary artery bypass grafting surgery 1 vessel 4. Systolic congestive heart failure, Decreased LV function with preoperative ejection fraction of 30% 5. Hypertension 6. Hyperlipidemia 7. Hypothyroid 8. Non-critical carotid stenosis with a 50-70% right ICA stenosis 9. Acute postoperative bleeding, an unexpected outcome 10. Postoperative Hypotension, resolved 11. Chronic renal failure, baseline creatinine 1.3-1.6 12. Thrombocytopenia, reactive HIT panel negative 13. Postoperative paroxysmal atrial fibrillation, status post clip ligation of the left atrial appendage, status post cardioversion 14. Transaminitis 15. Osteoarthritis 16. Postoperative hyponatremia, unexpected 17. Postoperative pericardial effusion, an unexpected outcome, status post pericardial window 18. Postoperative right pleural effusion, an unexpected outcome, status post placement of right pleural chest tube Plan: 1. Continue to maximize medical therapy with aspirin and beta heriberto. We will increase her beta heriberto as tolerated. Currently her metoprolol tartrate is 25 mg by mouth 3 times a day. 2. Encourage use of her incentive spirometry every hour while awake. 3. Continue to hold statin. We will restart her statin once her liver enzymes have normalized. AST 45 and ALT 47 on today's labs. 4. Bronchodilators management per pulmonary medicine. Discontinue Symbicort due to complaints of a sore throat. 5. Monitor daily labs and chest x-rays. Replace electrolytes per protocol. 6. GI and DVT prophylaxis. 7. Pain control current medication regimen. No Toradol due to her elevated BUN and creatinine. 8. Avoid nephrotoxic agents. 9. Continue Iron, vitamin C. hemoglobin remains 8.5 this a.m. 10. Lasix 40 mg IV 2 today. 11. Insulin management per primary care service. 12. Increase activity as tolerated. Physical therapy/occupational therapy/cardiac rehab following. 13. Continue Eliquis 2.5 mg by mouth twice a day today. 14. Discharge planning in progress. Anticipate discharge to inpatient rehab once medically stable. 15. Continue right pleural chest tube to low continuous wall suction -20 cm H2O. Continue to record accurate I's and O's. 16. Transfer to [address] [place] [address] cardiac stepdown unit when bed available. 17. Continue amiodarone 200 mg by mouth twice a day for atrial fibrillation prophylaxis. 18. More recommendations to follow based on patient's clinical course. Time with Patient: Greater than 30
[2019-04-04] MEDS: IPRATROPIUM-ALBUTEROL 3 ML NEB INHALATION SCH ×4 (09:13→20:09)
[2019-04-04] MEDS: CHOLECALCIFEROL 1,000 UNIT TAB PO SCH (09:26)
[2019-04-04] MEDS: APIXABAN 2.5 MG TABLET PO SCH ×2 (09:26→21:45)
[2019-04-04] MEDS: METOPROLOL TARTRATE 25 MG TAB PO SCH ×3 (09:26→21:45)
[2019-04-04] MEDS: ASPIRIN 81 MG PO SCH (09:26)
[2019-04-04] MEDS: AMIODARONE 200 MG TAB PO SCH ×2 (09:26→21:45)
--- NOTE | 2019-04-04 10:03 | PN ---
PROGRESS NOTE Viviana is a 79-year-old lady with history of aortic valve replacement and mitral valve repair and chronic atrial fibrillation, whose postop recovery has been very slow. She is currently in sinus rhythm in the ICU more stable hemodynamically. Shortness of breath has improved. She underwent a pericardial window for pericardial effusion and had chest tubes done for pleural effusions. She still has some drainage from the chest tube, but overall she is doing much better. PHYSICAL EXAMINATION: On exam, vital signs are stable. Chest exam reveals good air entry bilaterally. Heart exam reveals first and second heart sounds. No gallop. Examination of extremities did not reveal any edema. The patient is on Eliquis 2.5 b.i.d., aspirin, amiodarone 200 b.i.d., insulin, Lopressor 25 t.i.d. ASSESSMENT: 1. Paroxysmal atrial fibrillation. 2. Status post aortic valve replacement and mitral valve repair. 3. Respiratory insufficiency related to pleural effusion and pericardial effusion. The patient is doing better. We will continue current medications. Hopefully to rehab in the next 24 to 48 hours. MMODL / IJN: [id number] /
--- NOTE | 2019-04-04 11:15 | P.PN ---
Subjective Patient is seen in follow-up for acute kidney injury on chronic kidney disease. Renal function is stable. She has been ambulating. She was given Lasix 40 mg IV once this morning and is scheduled for another dose today. She is nonoliguric. Vital signs are stable. General: The patient appeared well nourished and normally developed. HEENT: Head exam is unremarkable. Neck is without jugular venous distension. LUNGS: Lungs are clear to auscultation and percussion. Breath sounds decreased. HEART: Rate and Rhythm are regular. First and second heart sounds normal. No murmurs, rubs or gallops. ABDOMEN: Abdominal exam reveals normal bowel sounds. Non-tender and non- distended. No evidence of peritonitis. EXTREMITITES: 1+ edema. Objective - Vital Signs Vital signs: Vital Signs Temp 98.1 F 04/04/19 00:00 Pulse 69 04/04/19 04:00 Resp 14 04/04/19 04:00 BP 94/58 04/04/19 04:00 Pulse Ox 93 L 04/04/19 04:00 Intake & Output 04/03/19 04/04/19 04/04/19 18:59 06:59 18:59 Intake Total 480 Output Total 2770 1420 Balance -2290 -1420 Weight 114.6 kg 116.6 kg Intake: Oral 480 Output: Chest Tube Drainage 370 120 Right Pleural 370 120 Urine 2400 1300 Other: Voiding Method Bedside Commode Bedside Commode # Voids 0 ABP, PAP, CO, CI - Last Documented Arterial Blood Pressure 102/67 Pulmonary Artery Pressure 38/16 Cardiac Output 4.7 Cardiac Index 2.1 - Labs CBC & Chem 7: 04/04/19 04:54 04/04/19 04:54 Labs: Abnormal Lab Results - Last 24 Hours (Table) 04/03/19 04/03/19 04/04/19 Range/Units 11:57 16:48 04:54 WBC 10.9 H (3.8-10.6) k/uL RBC 2.74 L (3.80-5.40) m/uL Hgb 8.5 L (11.4-16.0) gm/dL Hct 28.2 L (34.0-46.0) % MCV 102.8 H (80.0-100.0) fL MCHC 30.2 L (31.0-37.0) g/dL RDW 19.5 H (11.5-15.5) % Sodium (137-145) mmol/L Carbon Dioxide (22-30) mmol/L BUN (7-17) mg/dL Creatinine (0.52-1.04) mg/dL POC Glucose (mg/dL) 113 H 135 H (75-99) mg/dL AST (14-36) U/L Total Protein (6.3-8.2) g/dL Albumin (3.5-5.0) g/dL 04/04/19 04/04/19 Range/Units 04:54 06:16 WBC (3.8-10.6) k/uL RBC (3.80-5.40) m/uL Hgb (11.4-16.0) gm/dL Hct (34.0-46.0) % MCV (80.0-100.0) fL MCHC (31.0-37.0) g/dL RDW (11.5-15.5) % Sodium 134 L (137-145) mmol/L Carbon Dioxide 31 H (22-30) mmol/L BUN 63 H (7-17) mg/dL Creatinine 1.58 H (0.52-1.04) mg/dL POC Glucose (mg/dL) 106 H (75-99) mg/dL AST 45 H (14-36) U/L Total Protein 4.7 L (6.3-8.2) g/dL Albumin 2.8 L (3.5-5.0) g/dL Assessment and Plan Plan: Assessment: 1. Acute kidney injury secondary to ATN secondary to cardiorenal syndrome. Creatinine peaked at 2.06 this admission and is stable at 1.58 today. UA is quite benign. No hydronephrosis noted on renal ultrasound. 2. Status post CABG, mitral valve repair and aortic valve replacement on March 19. 3. Systolic CHF with ejection fraction of 40-45%. 4. Chronic kidney disease stage III with baseline creatinine in the range of 1.1-1.5 secondary to cardiorenal syndrome. 5. Volume overload. 6. Hypervolemic hyponatremia. Stable. 7. Anemia. Related to postoperative blood loss. High ferritin level noted. Stable. Plan: Status post IV Lasix 40 mg this morning; 1 more dose ordered for later today. Continue to monitor renal function and urine output. Avoid nephrotoxins. May use midodrine if sbp <90 or if symptomatic. Ok to add low dose ACEi or ARB if bp able to tolerate. Discussed with CTS team.
--- NOTE | 2019-04-04 12:20 | P.PN ---
Subjective Progress Note Date: 04/04/19 This is a 79-year-old female status post CABG X1, aortic valve replacement with bioprosthetic valve, mitral valve repair in a patient with severe aortic valve stenosis, moderate to severe mitral valve regurgitation, CAD, ischemic cardiomyopathy-preop EF 30%, pulmonary hypertension, hypertension, hypothyro idism and multiple other medical issues. Shortly after returning to ICU postop, she developed increased chest tube ouput of 1.3 L over 1-1/2 hours, returned to the OR and required emergent reexploration of the chest with evacuation of clots, control bleeding, placement of IABP. Mediastinal and left pleural chest tube drainage improved. This morning IABP weaned to 1:3 with plans for discontinuing this morning. Continuies on DIprovan, Levophed, Primacor and insulin drips. Cardiac output 7.4, cardiac index 3.4. Maintained on mechanical ventilation with FiO2 40%/+5 of PEEP. Chest x-ray reporting bilateral consolidation and pleural effusion. Telemetry accelerated junctional. 03/21/2019 Extubated yesterday evening.Maintaining O2 sats in the high 90s on 4 L nasal cannula. Incentive spirometer 800 to 1000. Maintained on insulin and Levophed drips. Recent cardiac output/cardiac index 6.1/2.8 .Developed atrial fibrillation last night, received digoxin. Remains in atrial fibrillation, receiving amiodarone bolus with drip pending. Magnesium 2.2, potassium 4.7. Hemoglobin remains stable at 8.5, platelets 62. creatinine 1.26 .Pain controlled. 03/22/2019 maintained on insulin, amiodarone, Levophed drips. Telemetry atrial fibrillation. Amiodarone discontinued secondary to elevated transminases; continues on metoprolol. Arixtra initiated. IS up to 1000. Maintaining O2 sats in the high 90s on 4 L nasal cannula. Chest x-ray reporting mild central vascular congestion, small bilateral pleural effusions and bibasilar acute infiltrates versus atelectasis-no significant change. Maintained on Lasix IV push with 24-hour I&O reflecting a positive fluid balance. 24-hour I&O reflects mediastinal chest tube for 417mls and left pleural chest tube 190mls in the next 24 hours.Hemoglobin 7.8, platelets 57. CO/CI 4.7/2.1. Creatinine 1.37. T-max 100.8, WBC 16.7. Blood sugars controlled. 03/23/2019 All drips have been weaned off. Cardiology discussing removing both pleural and mediastinal chest tubes today .Telemetry controlled atrial fibrillation on beta heriberto. Mild shortness of breath, maintaining O2 sats in the mid 90s on 3 L nasal cannula. Chest x-ray reporting bilateral atelectasis, stable small effusion, fluid overload. IS up to 750. Diuresing well on Lasix IV push with 24-hour I&O reflecting a negative fluid balance. 03/26/19 Sitting up in chair, continues to improve. Diuresing well with edema improving. Bicarb 34, sodium level 130, hemoglobin 7.[address] pending.Incentive spirometer up to almost 1000. Maintaining O2 sats in the mid 90s on room air. LFTs trending down. Controlled proximal atrial fibrillation, on Eliquis. Has not yet walked today, but states did ambulate yesterday in the hallway. Potassium of 3.4 being supplemented. 03/27/2019 sitting up in chair, maintaining O2 sats in the high 90s on 2 L nasal cannula.IS up to 1000. Ambulated in the hallway -Complains of mild shortness of breath, exertional shortness of breath. Chest x-ray reporting basilar effusions, atelectasis. Anticoagulated with Eliquis. Hemoglobin 7.6. Afebrile, WBC 14.5. Creatinine up to 1.83, Lasix discontinued. Sodium 131, fluid restrictions maintained. Developed paroximal atrial fibrillation last night, amiodarone drip initiated. Telemetry currently sinus rhythm with occasional PVC. amiodarone drip converted to oral. Bradycardic,Beta heriberto dose decreased. AST 107, ALT 319, T bili 1.2, statin remains on hold. Blood sugars controlled. Afebrile. 03/28/2019 telemetry sinus rhythm with occasional accelerated junctional rhythm, bradycardic at times with heart rates in the 50s. Borderline hypotension with MAP in the low 70s. Maintaining O2 sats low 90s to 95% on room air .Sitting up in chair, and does not feel well, complains of increased shortness of breath, fatigue. Pale appearance. Hgb 7.4, scheduled for transfusion of packed RBCs amiodarone discontinued as LFTs remain elevated, mildly improved with T bili up to 1.5. 24-hour I&O reflecting a negative fluid balance. Chest x-ray reporting cardiomegaly, possible interstitial edema, pulmonary venous hypertension, bibasilar effusions, atelectasis, prominent aorta with no evidence of pneumothorax. Incentive spirometer up to 750. 03/29/2019 Reports less fatigue this morning, shortness of breath, positive surgical site chest pain. yesterday she received 1 unit of packed RBCs, albumin with current hemoglobin at 8.0. Creatinine 1.84. Controlled atrial fibrillati on earlier this morning with reported multiple nonsustained runs of V. tach. Received additional Lopressor. Magnesium 2.30, potassium 4.2, bicarb 31. Maintaining O2 sats in the mid 90s on room air, 99% on 2 L nasal cannula. Chest x-ray pending. IS decreased to 500.Systolic blood pressure currently in the 90s. Telemetry currently reported patient converted to sinus bradycardia, heart rate in the 50s. LFTs continue to trend down slowly, T bili up to 1.8. 03/30/2019 maintaining O2 sats in the mid to high 90s on room air, complains of periodic shortness of breath at rest as well as exertional shortness of breath. IS up to 750. Chest x-ray reporting similar with probable bibasilar atelectasis, small effusions, stable cardiomegaly, aortic aneurysm. Telemetry atrial fibrillation , T bili 1.5, LFTs improving. Hemoglobin 8.5. Repeat echo reporting moderate paracardial effusion.Creatinine 1.89. Afebrile, WBC increased to 16.8. 04/02/2019 currently in the ICU, postop day #2 paracardial window, placement of right pleural chest tube and synchronized cardioversion. Yesterday she received amiodarone bolus, converted to sinus rhythm this morning . Feels better,sitting up in recliner, no acute distress with significant improvement in shortness of breath. Incentive spirometer up to 1000. Renal function stable. Chest x-ray reporting persistent widening of the mediastinum, further reviewed as per cardiothoracic surgery. Mediastinal chest tube discontinued. 04/03/2019 Off all drips, hemodynamically stable. Telemetry normal sinus rhythm sitting up in chair, no acute distress. Chest x-ray reporting bilateral infiltrate, small effusion with 5% right apical pneumothorax. Maintaining O2 sats of 94-95% on room air. Incentive spirometer up to 1000. Reports less short ness of breath. She ambulated in the hallway today, tolerated exertion well. Positive bowel movement yesterday. Blood sugars controlled. Creatinine 1.63. 04/04/2019 patient is overflow, awaiting a telemetry bed. sitting up in chair, incentive spirometer up to 1000, sinus rhythm with bundle branch positive. VSS off of inotropes and pressors , maintaining O2 sats of mid 90s on room air. Chest x-ray reporting pneumothorax no longer evident, probable left lower lobe atelectasis and associated effusion. positive bowel movement today.Ambulating, tolerating exertion well. Complains of sore, dry throat, attributed to oxygen. Received Lasix 40 IV push earlier today and schedule again later this afternoon. Creatinine 1.58. Borderline hypotension. Objective - Vital Signs Vital signs: Vital Signs Temp 98.1 F 04/04/19 00:00 Pulse 69 04/04/19 04:00 Resp 14 04/04/19 04:00 BP 94/58 04/04/19 04:00 Pulse Ox 93 L 04/04/19 04:00 Intake & Output 04/03/19 04/04/19 04/04/19 18:59 06:59 18:59 Intake Total 480 Output Total 2770 1420 Balance -2290 -1420 Weight 114.6 kg 116.6 kg Intake: Oral 480 Output: Chest Tube Drainage 370 120 Right Pleural 370 120 Urine 2400 1300 Other: Voiding Method Bedside Commode Bedside Commode # Voids 0 ABP, PAP, CO, CI - Last Documented Arterial Blood Pressure 102/67 Pulmonary Artery Pressure 38/16 Cardiac Output 4.7 Cardiac Index 2.1 - Exam PHYSICAL EXAM: VITAL SIGNS: As above GENERAL: Sitting up in chair, no acute distress HEENT: Conjunctivae normal. eyes normal. Oral mucosa moist NECK: No JVD. No thyroid enlargement. CARDIOVASCULAR: S1, S2 , regular No murmur, rubs or gallops. RESPIRATION: Nonlabored, Breath sounds diminished in the bases, fine right base course with fine crackles. No rhonchi, no wheezes. Right-sided chest tube present with serous drainage ABDOMEN: Soft, nontender . No guarding. no masses palpable. Positive Bowel sounds. LEGS: Decreasing Mild edema, positive peripheral pulses, LAUREL hose. PSYCHIATRY: Alert and oriented 3, mood and affect normal NERVOUS SYSTEM: Cranial nerves II through XII grossly intact, moves all 4 extremities, mild diffuse generalized weakness. No focal deficits. Skin: no rashes. Compression stockings, bilateral LAUREL hose in place. - Labs CBC & Chem 7: 04/04/19 04:54 04/04/19 04:54 Labs: Abnormal Lab Results - Last 24 Hours (Table) 04/03/19 04/03/19 04/04/19 Range/Units 11:57 16:48 04:54 WBC 10.9 H (3.8-10.6) k/uL RBC 2.74 L (3.80-5.40) m/uL Hgb 8.5 L (11.4-16.0) gm/dL Hct 28.2 L (34.0-46.0) % MCV 102.8 H (80.0-100.0) fL MCHC 30.2 L (31.0-37.0) g/dL RDW 19.5 H (11.5-15.5) % Sodium (137-145) mmol/L Carbon Dioxide (22-30) mmol/L BUN (7-17) mg/dL Creatinine (0.52-1.04) mg/dL POC Glucose (mg/dL) 113 H 135 H (75-99) mg/dL AST (14-36) U/L Total Protein (6.3-8.2) g/dL Albumin (3.5-5.0) g/dL 04/04/19 04/04/19 Range/Units 04:54 06:16 WBC (3.8-10.6) k/uL RBC (3.80-5.40) m/uL Hgb (11.4-16.0) gm/dL Hct (34.0-46.0) % MCV (80.0-100.0) fL MCHC (31.0-37.0) g/dL RDW (11.5-15.5) % Sodium 134 L (137-145) mmol/L Carbon Dioxide 31 H (22-30) mmol/L BUN 63 H (7-17) mg/dL Creatinine 1.58 H (0.52-1.04) mg/dL POC Glucose (mg/dL) 106 H (75-99) mg/dL AST 45 H (14-36) U/L Total Protein 4.7 L (6.3-8.2) g/dL Albumin 2.8 L (3.5-5.0) g/dL Assessment and Plan Assessment: -Status post CABG 1 with Aortic and Mitral valve repair with left atrial appendage exclusion, secondary to severe aortic valve stenosis and moderate to severe mitral valve regurgitation. Bioprosthetic aortic valve. -Acute postoperative bleeding, unexpected outcome, status post emergent ree xploration, evacuation of clot and control of bleeding, status post placement of IABP. -Acute blood loss anemia secondary to the above, status post transfusions of multiple products; RBCs, cryoprecipitate, FFP, platelets -Postoperative hypotension, secondary to hemorrhagic shock, unexpected outcome, status post pressor dependent -Pericardial effusion status post pericardial window -Postoperative right pleural effusion, status post placement of right pleural chest tube - Synchronized cardioversion -Thrombocytopenia -Postoperative paroximal atrial fibrillation -Secondary pulmonary hypertension -Chronic systolic CHF, Ischemic cardiomyopathy, preop EF 30%, improved post surgery EF 40-45%. -Hyperlipidemia -Hypertension, history of -Hypothyroidism -Right ICA stenosis 50-70% -History of nicotine dependence -Acute on chronic renal failure, stage III, secondary to cardiorenal syndrome. -Hyponatremia, hypervolemic -Transaminitis -Nonsustained runs of V. tach -Moderate sized pericardial effusion per echo -Leukocytosis -Atelectasis Plan: Continue current medication regime ,monitoring and symptomatic treatment. Nebulized bronchodilators.Maintain aggressive pulmonary toileting with incentive spirometer reinforced. Continue increasing activity as tolerated. PT/OT Close monitoring of renal function, electrolytes. Telemetry bed pending. Further recommendations to follow. The impression and plan of care has been dictated as directed. : I performed a history and examination of this patient, discussed the same with the dictator. I agree with the dictator's note ,documented as a scribe. Any additional findings or plans will be noted. Time taken: 35 minutes.
[2019-04-04 12:32] LABS: Glucose,Whole Blood 103 mg/dL (75-99)
--- NOTE | 2019-04-04 14:18 | P.PN ---
Subjective Progress Note Date: 04/04/19 Principal diagnosis: Aortic valve stenosis with severe aortic valve regurgitation status post aortic valve replacement. And status post pericardial window for pericardial effusion. This is a 79-year-old white female patient of Dr. Mati Vale, with a known history of aortic stenosis and regurgitation, hypertension, hyperlipidemia, hypothyroidism, moderate noncritical carotid artery stenosis, who was found to have significant decrease in LV function based on her echocardiogram in December 2018 with systolic/diastolic dysfunction. Recent underwent transesophageal echocardiogram on 02/05/2019 showing sclerotic and calcific aortic valve with severe aortic stenosis with area of the aortic valve calculated in the range of 1-1.1. There was moderate degree of mitral regurgitation, severely impaired left ventricle systolic function with estimated ejection fraction of 30%, and no evidence of thrombus in the left atrial appendage. Catheterization showed diffusely diseased LAD distally, RCA was dominant and disease free, circumflex had a 60-70% mid lesion. Yesterday on 03/19/2019 patient underwent aortic valve replacement with a #23 mm a villous hypostatic [employer] aortic valve, mitral valve repair with a #30 mm [employer] annular flex band, and single-vessel coronary artery bypass grafting with reverse SVG to the circumflex and ligation of the left atrial appendage with a #35 mm Atriclip. The patient is seen today 03/27/2019 in follow-up on the selective care unit. She is currently sitting up in a chair at the bedside. Awake and alert in no acute distress. She is currently maintaining good O2 saturations in the upper 90s on 2 L/m per nasal cannula. She's been afebrile. Hemodynamically stable. White count 14.5. Hemoglobin 7.6. Creatinine 1.83. AST 107. ALT 319. She is status post 6 units of packed red blood cells. She remains on amiodarone. Anticoagulated with Eliquis. Continued on bronchodilators. She is working well with the incentive spirometer. Needs increased encouragement. Today's chest x- ray was reviewed. No plans for thoracentesis at this point. The patient is seen today 03/28/2019 in follow-up on the selective care unit. Currently sitting up in a chair at the bedside. Awake and alert in no acute distress. Chest x-ray reveals cardiomegaly, possible interstitial edema with pulmonary venous hypertension. Some small basilar effusions/atelectasis. Somewhat more fatigued today as compared to yesterday. Pale. White count 14.8. Hemoglobin 7.4. Creatinine 2.06. AST 553. ALT 627. On 03/29/2019 the patient is looking slightly better. Breathing easier. Pulling approximately 1100 on the incentive spirometer. No cough or sputum production. We'll doing percussion and vibration to the right lower chest area. Remains in sinus rhythm. Off amiodarone. LFTs are improving. Creatinine is at 1.84 which is lower than yesterday. Sodium level is at 129. No new complaints otherwise for now. No chest pain. No palpitation. Hemoglobin stable at 8.0 On 03/30/2019 patient is still short of breath. Despite her being on room air oxygen, the patient is still struggling with her breathing and she short of breath. She is using incentive spirometer. A repeat echo cardiac exam was done and the patient was found to have moderate amount of pericardial effusion. Also, she is back to atrial fibrillation. LFTs are improving. The white cell count is at 16.8. Hemoglobin is at 8.5. Renal function shows a creatinine of 1.8. No other significant events overnight. The plan is for this patient to be ventilated by cardiac thoracic surgery in consultation for a cardiocentesis versus pericardial window. As for the right lung finding, the patient continues to diminished breath on the right lung base due to a combination of atelectasis/effusion. The echocardiogram showed an ejection fraction of 40-45%. The left ventricle was mildly dilated. There is mild to moderate impairment of the ejection fraction. On 03/31/2019 the patient is again postop. The patient underwent a pericardial window. The patient also underwent a right-sided chest tube insertion. The patient underwent cardioversion and operating room. There was a total of 700 mL of pleural fluid drained from the right lung and there was another 400 mL of pericardial effusion that was drained. Initially the patient had a successful cardioversion to sinus rhythm. After arriving to the ICU the patient went back into atrial fibrillation. The patient was given a bolus of amiodarone 150 mg and she'll be maintained on oral amiodarone. Chest tube is in place. Pericardial tube is in place. She is hemodynamically stable. She is not having any significant shortness of breath. Resting comfortably in bed. The LFTs are improving still. The creatinine is also improving is down to 1.7. No other significant events since the surgery and the patient is resting comfortably in bed. Chest x-ray was noted. On 04/01/2019 I'm seeing the patient for a follow-up. The patient intensive care unit. The pleural chest tube in the cardiac chest tube will be . The output from the chest tubes were noted. This patient is using the incentive spirometer. The patient is pulling up to thousand. Pulse ox is 94% on room air. Cardiac rhythm is still atrial fibrillation and the rate is controlled for now. The patient was given oral amiodarone. The patient had a lower blood pressure earlier this morning and the patient was given a bolus of normal saline. She is producing adequate amount of urine output. The chest tubes are all in place. There is no evidence of any air leak. Output is serosanguineous. No altered mentation. No other significant events overnight. The chest x-ray from today showed cardiomegaly and bibasilar infiltrates and small effusions. There is also widening of the vascular pedicle this is related to vascular ectasia. Reevaluated today on 04/02/2019, patient remains in the ICU, quite comfortable, in no distress, doing extremely well with incentive spirometry. She is now postoperative day #14, aortic valve replacement and emergent reexploration of the chest with evacuation of clots and control of bleeding. Placement of intra- aortic balloon pump. Postoperative day #2 pericardial window placement of right pleural chest tube and synchronized cardioversion. Reevaluated today on 04/03/2019, patient is postoperative day #15, sitting at a bedside chair, remains in the ICU. Hemodynamically stable, not requiring any pressors or inotropes. Tolerating oral intake well, patient has O2 saturation about 94% on room air, and she is achieving 1000 mL with incentive spirometry. Had fairly good amount of serosanguineous drainage from her chest tube/right pleural, and it remains in place. Her subxiphoid chest tube was removed yesterday. Renal profile is slightly worse than yesterday, creatinine is up to 1.6. Reevaluated today on 04/04/2019, remains in the intensive care unit, continues to have chest tube in place, significant amount of drainage noted over the last 24 hours roughly 400 mL of output noted. Patient had significant amount of urine output in the last 24 hours, responded to Lasix which was given 2. She is hemodynamically stable, not requiring any inotropic or pressors support. Symbicort was discontinued because of steroids induced dysphonia. Hemoglobin today is 8.5, BUN is 63 creatinine is 1.58, improving compared to yesterday. Objective - Vital Signs Vital signs: Vital Signs Temp 97.9 F 04/04/19 08:00 Pulse 72 04/04/19 10:00 Resp 7 L 04/04/19 10:00 BP 104/61 04/04/19 10:00 Pulse Ox 96 04/04/19 10:00 Intake & Output 04/03/19 04/04/19 04/04/19 18:59 06:59 18:59 Intake Total 480 Output Total 2770 1420 250 Balance -2290 -1420 -250 Weight 114.6 kg 116.6 kg Intake: Oral 480 Output: Chest Tube Drainage 370 120 250 Right Pleural 370 120 250 Urine 2400 1300 Other: Voiding Method Bedside Commode Bedside Commode Bedside Commode # Voids 0 ABP, PAP, CO, CI - Last Documented Arterial Blood Pressure 102/67 Pulmonary Artery Pressure 38/16 Cardiac Output 4.7 Cardiac Index 2.1 - Exam Physical Exam: Revealed 79-year-old female in no distress. Head: Atraumatic, normocephalic. HEENT:[Neck is supple.] [No neck masses.] [No thyromegaly.] [No JVD.] Chest: Diminished breath sounds at the bases no crackles or rhonchi or wheezes. Symmetrical chest expansion noted. Right-sided chest tube is noted. Significant output from the tube was noted. Cardiac Exam: [Normal S1 and S2, no S3 gallop, no murmur.] Abdomen: [Soft, nontender, no megaly, no rebound, no guarding, normal bowel sounds.] Extremities: [No clubbing, no edema, no cyanosis.] Neurological Exam: [No focal neurologic deficit.] Alert oriented 3. Psychiatric: Normal mood, affect and normal mental status examination. Skin: No rashes. - Labs CBC & Chem 7: 04/04/19 04:54 04/04/19 04:54 Labs: Abnormal Lab Results - Last 24 Hours (Table) 04/03/19 04/04/19 04/04/19 Range/Units 16:48 04:54 04:54 WBC 10.9 H (3.8-10.6) k/uL RBC 2.74 L (3.80-5.40) m/uL Hgb 8.5 L (11.4-16.0) gm/dL Hct 28.2 L (34.0-46.0) % MCV 102.8 H (80.0-100.0) fL MCHC 30.2 L (31.0-37.0) g/dL RDW 19.5 H (11.5-15.5) % Sodium 134 L (137-145) mmol/L Carbon Dioxide 31 H (22-30) mmol/L BUN 63 H (7-17) mg/dL Creatinine 1.58 H (0.52-1.04) mg/dL POC Glucose (mg/dL) 135 H (75-99) mg/dL AST 45 H (14-36) U/L Total Protein 4.7 L (6.3-8.2) g/dL Albumin 2.8 L (3.5-5.0) g/dL 04/04/19 04/04/19 Range/Units 06:16 12:19 WBC (3.8-10.6) k/uL RBC (3.80-5.40) m/uL Hgb (11.4-16.0) gm/dL Hct (34.0-46.0) % MCV (80.0-100.0) fL MCHC (31.0-37.0) g/dL RDW (11.5-15.5) % Sodium (137-145) mmol/L Carbon Dioxide (22-30) mmol/L BUN (7-17) mg/dL Creatinine (0.52-1.04) mg/dL POC Glucose (mg/dL) 106 H 103 H (75-99) mg/dL AST (14-36) U/L Total Protein (6.3-8.2) g/dL Albumin (3.5-5.0) g/dL Assessment and Plan Assessment: Impression: Severe aortic valve stenosis, status post bioprosthetic aortic valve replacement, postoperative day # 16 Moderate to severe mitral regurgitation, status post mitral valve repair posto perative day # 16 Single vessel coronary artery disease status post CABG 1 postoperative day # 16 Severe ischemic cardiomyopathy and LV dysfunction ejection fraction was 30% improved to 45% post surgery. Pericardial effusion requiring pericardial window postoperative day # 4 Multiple comorbidities including hypertension, hyperlipidemia, hypothyroidism, osteoarthritis, acute on chronic renal failure, acute postoperative bleeding, unexpected, postoperative atrial fibrillation, expected, status post synchronized cardioversion, postoperative pericardial effusion unexpected status post pericardial window, postoperative right pleural effusion requiring a right sided chest tube placement. Expected. Recommendation: Continue low-dose aspirin, beta blockers, Eliquis, amiodarone, strict I's and O's, encourage incentive spirometry, bronchodilators, increase activity, continue GI and DVT prophylaxis, continue insulin, continue pain control, diurese on a daily basis as needed. Considering the significant output from the right sided chest tube, it is not yet ready to be removed. We'll con tinue to follow Time with Patient: Less than 30
[2019-04-04] MEDS ORDERED: POTASSIUM CHLORIDE ER 10 MEQ TAB.ER.PRT PO STA (16:01)
[2019-04-04 17:23] LABS: Glucose,Whole Blood 120 mg/dL (75-99)
[2019-04-04] MEDS: SENNOSIDES-DOCUSATE SODIUM 1 EACH TAB PO SCH (21:45)
[2019-04-04 22:04] LABS: Glucose,Whole Blood 133 mg/dL (75-99)
[2019-04-05 05:45] LABS: Anisocytosis Slight; HCT 28.3 % (34.0-46.0); Hypochromasia Moderate; Macrocytosis Moderate; Mean Platelet Volume 7.9; Platelet Count 158 k/uL (150-450); Poikilocytosis Slight; RBC 2.83 m/uL (3.80-5.40); RDW 19.2 % (11.5-15.5); WBC 10.9 k/uL (3.8-10.6)
[2019-04-05] MEDS: INSULIN ASPART (NovoLOG) 100 UNIT/ML VIAL SQ SCH ×4 (06:44→22:07)
[2019-04-05 06:54] LABS: Glucose,Whole Blood 99 mg/dL (75-99)
[2019-04-05] MEDS: PANTOPRAZOLE 40 MG TABLET PO SCH (06:55)
[2019-04-05] MEDS: ASCORBIC ACID 500 MG TAB PO SCH ×2 (06:55→17:55)
[2019-04-05] MEDS: LEVOTHYROXINE 50 MCG TAB PO SCH (06:55)
[2019-04-05] MEDS: FERROUS SULFATE 325 MG TAB PO SCH ×2 (06:55→17:55)
[2019-04-05 07:45] LABS: Calcium 8.9 mg/dL (8.4-10.2); Potassium 3.7 mmol/L (3.5-5.1)
[2019-04-05] MEDS ORDERED: FUROSEMIDE 10 MG/ML 4 ML VIAL IV STA (07:49)
[2019-04-05] MEDS ORDERED: POTASSIUM CHLORIDE ER 20 MEQ TAB.ER PO STA (07:50)
--- NOTE | 2019-04-05 08:01 | P.PN ---
Subjective Progress Note Date: 04/05/19 Principal diagnosis: Severe aortic valve stenosis, moderate to severe mitral valve regurgitation, single-vessel coronary artery disease, and a decreased LV function, chronic systolic heart failure with a preoperative ejection fraction of 30%. History of hypertension, hyperlipidemia, hypothyroid, osteoarthritis, chronic renal failure with baseline creatinine 1.3-1.6, right internal carotid artery stenosis 50-70%, previous tobacco dependance with preoperative FEV1 93% of predicted. POD #17 aortic valve replacement with a #23 mm Avalus bioprosthetic Medtronic aortic valve, mitral valve repair with a #30 mm Carbomedics AnnuloFlex band. Coronary artery bypass grafting 1 vessel with a reverse greater saphenous vein off the aorta to the circumflex coronary artery and a clip ligation of the left atrial appendage with a 35 mm Atriclip. Endoscopic harvesting of the left gr eater saphenous vein. Intraoperative transesophageal echocardiogram. Acute postoperative bleeding, hemorrhagic shock, an unexpected outcome Reactive thrombocytopenia, expected POD #17 Emergent re-exploration of the chest, evacuation of clots and control of bleed. Placement of intra-aortic balloon pump. Post operative atrial fibrillation, unexpected but potential outcome due to multiple comorbidities. Transaminitis, unexpected, likely from hypoperfusion. Postoperative pericardial effusion, unexpected outcome POD #5 pericardial window, placement of right pleural chest tube and synchroniz ed cardioversion Postoperative right pleural effusion, unexpected The patient is currently sitting up in a recliner in no acute distress. Denies pain, states shortness of breath has improved. She has ambulated in the hallway multiple times. Right pleural chest tube remains, but placed to water seal yesterday. Patient states she continues to feel better every day. Currently in normal sinus rhythm and hemodynamically stable, did have afib last night for about 2 hours per nursing. No new concerns. Objective - Vital Signs Vital signs: Vital Signs Temp 98 F 04/05/19 04:00 Pulse 80 04/05/19 04:00 Resp 29 H 04/05/19 04:00 BP 97/64 04/05/19 04:00 Pulse Ox 93 L 04/05/19 04:00 Intake & Output 04/04/19 04/05/19 04/05/19 18:59 06:59 18:59 Intake Total 620 Output Total 560 910 Balance -560 -290 Weight 114.5 kg Intake: IV 20 Invasive Line 6 10 Invasive Line 7 10 Oral 600 Output: Chest Tube Drainage 310 110 Right Pleural 310 110 Urine 250 800 Other: Voiding Method Bedside Commode Bedside Commode # Voids 1 1 # Bowel Movements 1 ABP, PAP, CO, CI - Last Documented Arterial Blood Pressure 102/67 Pulmonary Artery Pressure 38/16 Cardiac Output 4.7 Cardiac Index 2.1 - Constitutional General appearance: Present: cooperative, no acute distress, obese - Respiratory Details: Lungs sounds diminished bilaterally. Respirations even, non-labored. Currently on room air with oxygen saturation 98%. Able to achieve 1000 mL on incentive spirometry. Strong cough. Right pleural chest tube to water seal, 90 mL serous drainage overnight, 250 mL in the last 24 hours. No air leaks present. - Cardiovascular Details: S1/S2 present. Regular rate and rhythm, sinus rhythm on telemetry. Sternum stable. Palpable peripheral pulses bilaterally. Trace bilateral lower extremity edema remains. No calf pain or tenderness noted. Heart hugger in place with patient demonstrating appropriate use. Antiembolism stockings, SCDs present. - Gastrointestinal Gastrointestinal Comment(s): Abdomen soft, nontender, nondistended. Active bowel sounds present 4 quadrants. Tolerating diet. Positive bowel movement 04/04. - Genitourinary Genitourinary Comment(s): Continues to void clear yellow urine. - Integumentary Integumentary Comment(s): Skin is warm and dry with evidence of good perfusion. Anterior chest incision well approximated and covered with dry intact dressing. Left lower extremity EVH site well approximated. Chest tube sites covered with dry intact dressing. - Neurologic Neurologic: Present: CNII-XII intact - Musculoskeletal Musculoskeletal: Present: gait normal, strength equal bilaterally - Psychiatric Psychiatric: Present: A&O x's 3, appropriate affect, intact judgment & insight - Allied health notes Allied health notes reviewed: nursing - Labs CBC & Chem 7: 04/05/19 05:19 04/05/19 07:11 Labs: Abnormal Lab Results - Last 24 Hours (Table) 04/04/19 04/04/19 04/04/19 Range/Units 12:19 17:11 21:42 WBC (3.8-10.6) k/uL RBC (3.80-5.40) m/uL Hgb (11.4-16.0) gm/dL Hct (34.0-46.0) % RDW (11.5-15.5) % BUN (7-17) mg/dL Creatinine (0.52-1.04) mg/dL POC Glucose (mg/dL) 103 H 120 H 133 H (75-99) mg/dL 04/05/19 04/05/19 Range/Units 05:19 07:11 WBC 10.9 H (3.8-10.6) k/uL RBC 2.83 L (3.80-5.40) m/uL Hgb 9.0 L (11.4-16.0) gm/dL Hct 28.3 L (34.0-46.0) % RDW 19.2 H (11.5-15.5) % BUN 52 H (7-17) mg/dL Creatinine 1.58 H (0.52-1.04) mg/dL POC Glucose (mg/dL) (75-99) mg/dL - Imaging and Cardiology Chest x-ray: image reviewed Assessment and Plan Assessment: 1. Severe aortic valve stenosis, status post bioprosthetic aortic valve replacement 2. Moderate to severe mitral valve regurgitation, status post mitral valve repair 3. Single-vessel coronary artery disease, status post 1 vessel CABG 4. Decreased LV function, chronic systolic heart failure, ischemic cardiomyopathy with preoperative EF 30%, EF improved to 40-45% post surgery 5. History of hypertension 6. Hyperlipidemia 7. Hypothyroid 8. Osteoarthritis 9. Right internal carotid artery stenosis 50-69% 10. Acute on chronic renal failure, baseline creatinine 1.3-1.6 11. Previous tobacco dependence with preoperative FEV1 93% of predicted 12. Acute postoperative bleeding, hemorrhagic shock, status post emergent re- exploration of the chest with evacuation of clots and control of the bleed 13. Thrombocytopenia, reactive 14. Postoperative atrial fibrillation, status post clip ligation of left atrial appendage, status post synchronized cardioversion 15. Transaminitis, likely related to hypoperfusion 16. Postoperative pericardial effusion, status post pericardial window 17. Postoperative right pleural effusion, status post placement of right pleural chest tube Plan: 1. Continue low-dose aspirin, beta heriberto therapy. Will increase beta heriberto therapy as tolerated. Will restart statin. 2. Continue amiodarone. Continue Eliquis for anticoagulation. 3. Patient would benefit from ARLEN inhibitor for afterload reduction, however contraindicated at this time secondary to acute kidney injury. 4. Continue fluid restrictions, daily weights, strict accurate I and O's. 5. Encourage incentive spirometry 10 times every hour while awake. Patient needs aggressive pulmonary hygiene. 6. Bronchodilators per pulmonology. 7. Increase activity, ambulate as tolerated. PT/OT/cardiac rehab following. 8. Will monitor daily labs and x-rays. Electrolytes replacement per protocol. 9. GI/DVT prophylaxis. 10. Insulin management per primary care service. 11. Pain control current medication regimen. 12. Continue Iron, vitamin C. 13. Will give Lasix 40 mg IV push 1 today. 14. Continue right pleural chest tube for another 24 hours. 15. Transfer orders placed for 3 S. cardiac stepdown unit. May transfer when bed available. 16. Discharge planning in progress. Anticipate discharge to inpatient rehab, insurance authorization has been obtained. Will discharge to inpatient rehab once patient is medically stable and chest tube removed. 17. More recommendations to follow as patient progresses. Time with Patient: Greater than 30
[2019-04-05] MEDS: IPRATROPIUM-ALBUTEROL 3 ML NEB INHALATION SCH ×4 (08:14→20:14)
--- NOTE | 2019-04-05 08:27 | XR ---
EXAMINATION TYPE: XR chest 1V portable DATE OF EXAM: 04/05/2019 COMPARISON: Prior chest x-ray 04/04/2019 HISTORY: Postop cardiac surgery TECHNIQUE: Single frontal view of the chest is obtained. FINDINGS: Patient is post median sternotomy. Right chest tube is stable. The heart is enlarged, post atrial appendage clipping noted. Left hemidiaphragm is obscured, left costophrenic angle is blunted. No pneumothorax. Mediastinal widening is stable. IMPRESSION: Findings similar to prior exam. Probable left lower lobe atelectasis and associated effu kate. Cardiomegaly.
[2019-04-05] MEDS: AMIODARONE 200 MG TAB PO SCH ×2 (08:32→20:38)
[2019-04-05] MEDS: APIXABAN 2.5 MG TABLET PO SCH ×2 (08:32→20:38)
[2019-04-05] MEDS: ASPIRIN 81 MG PO SCH (08:32)
[2019-04-05] MEDS: CHOLECALCIFEROL 1,000 UNIT TAB PO SCH (08:32)
[2019-04-05] MEDS: METOPROLOL TARTRATE 25 MG TAB PO SCH ×3 (08:32→20:38)
--- NOTE | 2019-04-05 10:22 | P.PN ---
Subjective Patient is seen in follow-up for acute kidney injury on chronic kidney disease. Renal function is stable. She has been ambulating. She has been getting IV Lasix on a daily basis. She is nonoliguric. Vital signs are stable. General: The patient appeared well nourished and normally developed. HEENT: Head exam is unremarkable. Neck is without jugular venous distension. LUNGS: Lungs are clear to auscultation and percussion. Breath sounds decreased. HEART: Rate and Rhythm are regular. First and second heart sounds normal. No murmurs, rubs or gallops. ABDOMEN: Abdominal exam reveals normal bowel sounds. Non-tender and non- distended. No evidence of peritonitis. EXTREMITITES: 1+ edema. Objective - Vital Signs Vital signs: Vital Signs Temp 98.1 F 04/05/19 07:49 Pulse 80 04/05/19 07:49 Resp 18 04/05/19 07:49 BP 94/50 04/05/19 07:49 Pulse Ox 100 04/05/19 07:49 Intake & Output 04/04/19 04/05/19 04/05/19 18:59 06:59 18:59 Intake Total 620 Output Total 560 910 50 Balance -560 -290 -50 Weight 114.5 kg Intake: IV 20 Invasive Line 6 10 Invasive Line 7 10 Oral 600 Output: Chest Tube Drainage 310 110 50 Right Pleural 310 110 50 Urine 250 800 Other: Voiding Method Bedside Commode Bedside Commode Bedside Commode # Voids 1 1 # Bowel Movements 1 ABP, PAP, CO, CI - Last Documented Arterial Blood Pressure 102/67 Pulmonary Artery Pressure 38/16 Cardiac Output 4.7 Cardiac Index 2.1 - Labs CBC & Chem 7: 04/05/19 05:19 04/05/19 07:11 Labs: Abnormal Lab Results - Last 24 Hours (Table) 04/04/19 04/04/19 04/04/19 Range/Units 12:19 17:11 21:42 WBC (3.8-10.6) k/uL RBC (3.80-5.40) m/uL Hgb (11.4-16.0) gm/dL Hct (34.0-46.0) % RDW (11.5-15.5) % BUN (7-17) mg/dL Creatinine (0.52-1.04) mg/dL POC Glucose (mg/dL) 103 H 120 H 133 H (75-99) mg/dL 04/05/19 04/05/19 Range/Units 05:19 07:11 WBC 10.9 H (3.8-10.6) k/uL RBC 2.83 L (3.80-5.40) m/uL Hgb 9.0 L (11.4-16.0) gm/dL Hct 28.3 L (34.0-46.0) % RDW 19.2 H (11.5-15.5) % BUN 52 H (7-17) mg/dL Creatinine 1.58 H (0.52-1.04) mg/dL POC Glucose (mg/dL) (75-99) mg/dL Assessment and Plan Plan: Assessment: 1. Acute kidney injury secondary to ATN secondary to cardiorenal syndrome. Creatinine peaked at 2.06 this admission and is stable at 1.58 today. UA is quite benign. No hydronephrosis noted on renal ultrasound. 2. Status post CABG, mitral valve repair and aortic valve replacement on March 19. 3. Systolic CHF with ejection fraction of 40-45%. 4. Chronic kidney disease stage III with baseline creatinine in the range of 1.1-1.5 secondary to cardiorenal syndrome. 5. Volume overload. 6. Hypervolemic hyponatremia. Better. 7. Anemia. Related to postoperative blood loss. High ferritin level noted. Stable. Plan: Status post IV Lasix 40 mg this morning. Continue to monitor renal function and urine output. Avoid nephrotoxins. May use midodrine if sbp <90 or if symptomatic. Ok to add low dose ACEi or ARB if bp able to tolerate.
[2019-04-05 10:58] VITALS: BMI 36.2
--- NOTE | 2019-04-05 12:00 | P.PN ---
Subjective Progress Note Date: 04/05/19 This is a 79-year-old female status post CABG X1, aortic valve replacement with bioprosthetic valve, mitral valve repair in a patient with severe aortic valve stenosis, moderate to severe mitral valve regurgitation, CAD, ischemic cardiomyopathy-preop EF 30%, pulmonary hypertension, hypertension, hypothyro idism and multiple other medical issues. Shortly after returning to ICU postop, she developed increased chest tube ouput of 1.3 L over 1-1/2 hours, returned to the OR and required emergent reexploration of the chest with evacuation of clots, control bleeding, placement of IABP. Mediastinal and left pleural chest tube drainage improved. This morning IABP weaned to 1:3 with plans for discontinuing this morning. Continuies on DIprovan, Levophed, Primacor and insulin drips. Cardiac output 7.4, cardiac index 3.4. Maintained on mechanical ventilation with FiO2 40%/+5 of PEEP. Chest x-ray reporting bilateral consolidation and pleural effusion. Telemetry accelerated junctional. 03/21/2019 Extubated yesterday evening.Maintaining O2 sats in the high 90s on 4 L nasal cannula. Incentive spirometer 800 to 1000. Maintained on insulin and Levophed drips. Recent cardiac output/cardiac index 6.1/2.8 .Developed atrial fibrillation last night, received digoxin. Remains in atrial fibrillation, receiving amiodarone bolus with drip pending. Magnesium 2.2, potassium 4.7. Hemoglobin remains stable at 8.5, platelets 62. creatinine 1.26 .Pain controlled. 03/22/2019 maintained on insulin, amiodarone, Levophed drips. Telemetry atrial fibrillation. Amiodarone discontinued secondary to elevated transminases; continues on metoprolol. Arixtra initiated. IS up to 1000. Maintaining O2 sats in the high 90s on 4 L nasal cannula. Chest x-ray reporting mild central vascular congestion, small bilateral pleural effusions and bibasilar acute infiltrates versus atelectasis-no significant change. Maintained on Lasix IV push with 24-hour I&O reflecting a positive fluid balance. 24-hour I&O reflects mediastinal chest tube for 417mls and left pleural chest tube 190mls in the next 24 hours.Hemoglobin 7.8, platelets 57. CO/CI 4.7/2.1. Creatinine 1.37. T-max 100.8, WBC 16.7. Blood sugars controlled. 03/23/2019 All drips have been weaned off. Cardiology discussing removing both pleural and mediastinal chest tubes today .Telemetry controlled atrial fibrillation on beta heriberto. Mild shortness of breath, maintaining O2 sats in the mid 90s on 3 L nasal cannula. Chest x-ray reporting bilateral atelectasis, stable small effusion, fluid overload. IS up to 750. Diuresing well on Lasix IV push with 24-hour I&O reflecting a negative fluid balance. 03/26/19 Sitting up in chair, continues to improve. Diuresing well with edema improving. Bicarb 34, sodium level 130, hemoglobin 7.[address] pending.Incentive spirometer up to almost 1000. Maintaining O2 sats in the mid 90s on room air. LFTs trending down. Controlled proximal atrial fibrillation, on Eliquis. Has not yet walked today, but states did ambulate yesterday in the hallway. Potassium of 3.4 being supplemented. 03/27/2019 sitting up in chair, maintaining O2 sats in the high 90s on 2 L nasal cannula.IS up to 1000. Ambulated in the hallway -Complains of mild shortness of breath, exertional shortness of breath. Chest x-ray reporting basilar effusions, atelectasis. Anticoagulated with Eliquis. Hemoglobin 7.6. Afebrile, WBC 14.5. Creatinine up to 1.83, Lasix discontinued. Sodium 131, fluid restrictions maintained. Developed paroximal atrial fibrillation last night, amiodarone drip initiated. Telemetry currently sinus rhythm with occasional PVC. amiodarone drip converted to oral. Bradycardic,Beta heriberto dose decreased. AST 107, ALT 319, T bili 1.2, statin remains on hold. Blood sugars controlled. Afebrile. 03/28/2019 telemetry sinus rhythm with occasional accelerated junctional rhythm, bradycardic at times with heart rates in the 50s. Borderline hypotension with MAP in the low 70s. Maintaining O2 sats low 90s to 95% on room air .Sitting up in chair, and does not feel well, complains of increased shortness of breath, fatigue. Pale appearance. Hgb 7.4, scheduled for transfusion of packed RBCs amiodarone discontinued as LFTs remain elevated, mildly improved with T bili up to 1.5. 24-hour I&O reflecting a negative fluid balance. Chest x-ray reporting cardiomegaly, possible interstitial edema, pulmonary venous hypertension, bibasilar effusions, atelectasis, prominent aorta with no evidence of pneumothorax. Incentive spirometer up to 750. 03/29/2019 Reports less fatigue this morning, shortness of breath, positive surgical site chest pain. yesterday she received 1 unit of packed RBCs, albumin with current hemoglobin at 8.0. Creatinine 1.84. Controlled atrial fibrillati on earlier this morning with reported multiple nonsustained runs of V. tach. Received additional Lopressor. Magnesium 2.30, potassium 4.2, bicarb 31. Maintaining O2 sats in the mid 90s on room air, 99% on 2 L nasal cannula. Chest x-ray pending. IS decreased to 500.Systolic blood pressure currently in the 90s. Telemetry currently reported patient converted to sinus bradycardia, heart rate in the 50s. LFTs continue to trend down slowly, T bili up to 1.8. 03/30/2019 maintaining O2 sats in the mid to high 90s on room air, complains of periodic shortness of breath at rest as well as exertional shortness of breath. IS up to 750. Chest x-ray reporting similar with probable bibasilar atelectasis, small effusions, stable cardiomegaly, aortic aneurysm. Telemetry atrial fibrillation , T bili 1.5, LFTs improving. Hemoglobin 8.5. Repeat echo reporting moderate paracardial effusion.Creatinine 1.89. Afebrile, WBC increased to 16.8. 04/02/2019 currently in the ICU, postop day #2 paracardial window, placement of right pleural chest tube and synchronized cardioversion. Yesterday she received amiodarone bolus, converted to sinus rhythm this morning . Feels better,sitting up in recliner, no acute distress with significant improvement in shortness of breath. Incentive spirometer up to 1000. Renal function stable. Chest x-ray reporting persistent widening of the mediastinum, further reviewed as per cardiothoracic surgery. Mediastinal chest tube discontinued. 04/03/2019 Off all drips, hemodynamically stable. Telemetry normal sinus rhythm sitting up in chair, no acute distress. Chest x-ray reporting bilateral infiltrate, small effusion with 5% right apical pneumothorax. Maintaining O2 sats of 94-95% on room air. Incentive spirometer up to 1000. Reports less short ness of breath. She ambulated in the hallway today, tolerated exertion well. Positive bowel movement yesterday. Blood sugars controlled. Creatinine 1.63. 04/04/2019 patient is overflow, awaiting a telemetry bed. sitting up in chair, incentive spirometer up to 1000, sinus rhythm with bundle branch positive. VSS off of inotropes and pressors , maintaining O2 sats of mid 90s on room air. Chest x-ray reporting pneumothorax no longer evident, probable left lower lobe atelectasis and associated effusion. positive bowel movement today.Ambulating, tolerating exertion well. Complains of sore, dry throat, attributed to oxygen. Received Lasix 40 IV push earlier today and schedule again later this afternoon. Creatinine 1.58. Borderline hypotension. 04/05/19 telemetry sinus rhythm, though patient did have a 2 hour run of controlled A. fib last night reported per staff. Vital signs stable. Right pleural chest tube to waterseal. Denies chest pain, palpitations. Ambulating in hallway, tolerating exertion well. Shortness of breath significantly improved. Incentive spirometer up to 1000, maintaining O2 sats of high 90s on room air. Diet intake improving, consuming 75%, blood sugars controlled. Creatinine stable, 1.58. Objective - Vital Signs Vital signs: Vital Signs Temp 98.1 F 04/05/19 07:49 Pulse 80 04/05/19 07:49 Resp 18 04/05/19 07:49 BP 94/50 04/05/19 07:49 Pulse Ox 100 04/05/19 07:49 Intake & Output 04/04/19 04/05/19 04/05/19 18:59 06:59 18:59 Intake Total 620 Output Total 560 910 950 Balance -560 -290 -950 Weight 114.5 kg 114.5 kg Intake: IV 20 Invasive Line 6 10 Invasive Line 7 10 Oral 600 Output: Chest Tube Drainage 310 110 50 Right Pleural 310 110 50 Urine 250 800 900 Other: Voiding Method Bedside Commode Bedside Commode Bedside Commode # Voids 1 1 # Bowel Movements 1 1 ABP, PAP, CO, CI - Last Documented Arterial Blood Pressure 102/67 Pulmonary Artery Pressure 38/16 Cardiac Output 4.7 Cardiac Index 2.1 - Exam PHYSICAL EXAM: VITAL SIGNS: As above GENERAL: Sitting up in chair, no acute distress HEENT: Conjunctivae normal. eyes normal. Oral mucosa moist NECK: Supple, No JVD. No thyroid enlargement. CARDIOVASCULAR: S1, S2 , regular No murmur, rubs or gallops. RESPIRATION: Nonlabored, Breath sounds diminished in the bases, No rhonchi, crackles or wheezes. Right-sided chest tube present with serous drainage ABDOMEN: Soft, nontender . No guarding. no masses palpable. Positive Bowel sounds. LEGS: Minimal edema, positive peripheral pulses, LAUREL hose. PSYCHIATRY: Alert and oriented 3, mood and affect normal NERVOUS SYSTEM: Cranial nerves II through XII grossly intact, moves all 4 extremities, mild diffuse generalized weakness. No focal deficits. Skin: no rashes. Compression stockings, bilateral LAUREL hose in place. - Labs CBC & Chem 7: 04/05/19 05:19 04/05/19 07:11 Labs: Abnormal Lab Results - Last 24 Hours (Table) 04/04/19 04/04/19 04/04/19 Range/Units 12:19 17:11 21:42 WBC (3.8-10.6) k/uL RBC (3.80-5.40) m/uL Hgb (11.4-16.0) gm/dL Hct (34.0-46.0) % RDW (11.5-15.5) % BUN (7-17) mg/dL Creatinine (0.52-1.04) mg/dL POC Glucose (mg/dL) 103 H 120 H 133 H (75-99) mg/dL 04/05/19 04/05/19 Range/Units 05:19 07:11 WBC 10.9 H (3.8-10.6) k/uL RBC 2.83 L (3.80-5.40) m/uL Hgb 9.0 L (11.4-16.0) gm/dL Hct 28.3 L (34.0-46.0) % RDW 19.2 H (11.5-15.5) % BUN 52 H (7-17) mg/dL Creatinine 1.58 H (0.52-1.04) mg/dL POC Glucose (mg/dL) (75-99) mg/dL Assessment and Plan Assessment: -Status post CABG 1 with Aortic and Mitral valve repair with left atrial appendage exclusion, secondary to severe aortic valve stenosis and moderate to severe mitral valve regurgitation. Bioprosthetic aortic valve. -Acute postoperative bleeding, unexpected outcome, status post emergent reex ploration, evacuation of clot and control of bleeding, status post placement of IABP. -Acute blood loss anemia secondary to the above, status post transfusions of multiple products; RBCs, cryoprecipitate, FFP, platelets -Postoperative hypotension, secondary to hemorrhagic shock, unexpected outcome, status post pressor dependent -Pericardial effusion status post pericardial window -Postoperative right pleural effusion, status post placement of right pleural chest tube - Synchronized cardioversion -Thrombocytopenia -Postoperative paroximal atrial fibrillation -Secondary pulmonary hypertension -Chronic systolic CHF, Ischemic cardiomyopathy, preop EF 30%, improved post surgery EF 40-45%. -Hyperlipidemia -Hypertension, history of -Hypothyroidism -Right ICA stenosis 50-70% -History of nicotine dependence -Acute on chronic renal failure, stage III, secondary to cardiorenal syndrome. -Hyponatremia, hypervolemic -Transaminitis -Nonsustained runs of V. tach -Moderate sized pericardial effusion per echo -Leukocytosis -Atelectasis Plan: Continue current medication regime ,monitoring and symptomatic treatment. PT/OT,Continue increasing activity as tolerated. Maintain Nebulized bronchod ilators.Aggressive pulmonary toileting with incentive spirometer reinforced. . Close monitoring of renal function, electrolytes. Telemetry bed pending. Potential DC of right pleural chest tomorrow as per cardiothoracic surgery. Further recommendations to follow. The impression and plan of care has been dictated as directed. : I performed a history and examination of this patient, discussed the same with the dictator. I agree with the dictator's note ,documented as a scribe. Any additional findings or plans will be noted. Time taken: 35 minutes.
[2019-04-05 12:14] LABS: Glucose,Whole Blood 107 mg/dL (75-99)
--- NOTE | 2019-04-05 13:18 | PN ---
PROGRESS NOTE A 79-year-old lady who is status post aortic valve replacement and mitral valve repair, doing well. Chest tube is going to come out today and just back into atrial fibrillation but heart rate is well controlled. The patient is on aspirin, Eliquis, Cordarone, Lipitor, Lasix, Lopressor, Synthroid. PHYSICAL EXAMINATION: On exam, afebrile, heart rate is 80 beats per minute, blood pressure 97/64, respiratory rate is 18. Chest exam reveals diminished air entry at the bases. Heart exam reveals first and second heart sounds. Systolic murmur at the left lower sternal border. Abdomen is soft. Examination of extremities revealed mild edema. Peripheral pulses are felt. ASSESSMENT: 1. Status post aortic valve replacement. 2. Status post mitral valve repair. 3. Chronic atrial fibrillation. 4. Pericardial effusion. 5. Pleural effusion. PLAN: Patient is getting better. Continue with current measures. Hopefully to rehab over the next 24 hours. MMODL / IJN: [id number] /
--- NOTE | 2019-04-05 13:57 | P.PN ---
Subjective Progress Note Date: 04/05/19 Principal diagnosis: Aortic valve stenosis with severe aortic valve regurgitation status post aortic valve replacement. And status post pericardial window for pericardial effusion. This is a 79-year-old white female patient of Dr. Mati Vale, with a known history of aortic stenosis and regurgitation, hypertension, hyperlipidemia, hypothyroidism, moderate noncritical carotid artery stenosis, who was found to have significant decrease in LV function based on her echocardiogram in December 2018 with systolic/diastolic dysfunction. Recent underwent transesophageal echocardiogram on 02/05/2019 showing sclerotic and calcific aortic valve with severe aortic stenosis with area of the aortic valve calculated in the range of 1-1.1. There was moderate degree of mitral regurgitation, severely impaired left ventricle systolic function with estimated ejection fraction of 30%, and no evidence of thrombus in the left atrial appendage. Catheterization showed diffusely diseased LAD distally, RCA was dominant and disease free, circumflex had a 60-70% mid lesion. Yesterday on 03/19/2019 patient underwent aortic valve replacement with a #23 mm a villous hypostatic Medtronic aortic valve, mitral valve repair with a #30 mm CarboMedics annular flex band, and single-vessel coronary artery bypass grafting with reverse SVG to the circumflex and ligation of the left atrial appendage with a #35 mm Atriclip. The patient is seen today 03/27/2019 in follow-up on the selective care unit. She is currently sitting up in a chair at the bedside. Awake and alert in no acute distress. She is currently maintaining good O2 saturations in the upper 90s on 2 L/m per nasal cannula. She's been afebrile. Hemodynamically stable. White count 14.5. Hemoglobin 7.6. Creatinine 1.83. AST 107. ALT 319. She is status post 6 units of packed red blood cells. She remains on amiodarone. Anticoagulated with Eliquis. Continued on bronchodilators. She is working well with the incentive spirometer. Needs increased encouragement. Today's chest x- ray was reviewed. No plans for thoracentesis at this point. The patient is seen today 03/28/2019 in follow-up on the selective care unit. Currently sitting up in a chair at the bedside. Awake and alert in no acute distress. Chest x-ray reveals cardiomegaly, possible interstitial edema with pulmonary venous hypertension. Some small basilar effusions/atelectasis. Somewhat more fatigued today as compared to yesterday. Pale. White count 14.8. Hemoglobin 7.4. Creatinine 2.06. AST 553. ALT 627. On 03/29/2019 the patient is looking slightly better. Breathing easier. Pulling approximately 1100 on the incentive spirometer. No cough or sputum production. We'll doing percussion and vibration to the right lower chest area. Remains in sinus rhythm. Off amiodarone. LFTs are improving. Creatinine is at 1.84 which is lower than yesterday. Sodium level is at 129. No new complaints otherwise for now. No chest pain. No palpitation. Hemoglobin stable at 8.0 On 03/30/2019 patient is still short of breath. Despite her being on room air oxygen, the patient is still struggling with her breathing and she short of breath. She is using incentive spirometer. A repeat echo cardiac exam was done and the patient was found to have moderate amount of pericardial effusion. Also, she is back to atrial fibrillation. LFTs are improving. The white cell count is at 16.8. Hemoglobin is at 8.5. Renal function shows a creatinine of 1.8. No other significant events overnight. The plan is for this patient to be ventilated by cardiac thoracic surgery in consultation for a cardiocentesis versus pericardial window. As for the right lung finding, the patient continues to diminished breath on the right lung base due to a combination of atelectasis/effusion. The echocardiogram showed an ejection fraction of 40-45%. The left ventricle was mildly dilated. There is mild to moderate impairment of the ejection fraction. On 03/31/2019 the patient is again postop. The patient underwent a pericardial window. The patient also underwent a right-sided chest tube insertion. The patient underwent cardioversion and operating room. There was a total of 700 mL of pleural fluid drained from the right lung and there was another 400 mL of pericardial effusion that was drained. Initially the patient had a successful cardioversion to sinus rhythm. After arriving to the ICU the patient went back into atrial fibrillation. The patient was given a bolus of amiodarone 150 mg and she'll be maintained on oral amiodarone. Chest tube is in place. Pericardial tube is in place. She is hemodynamically stable. She is not having any significant shortness of breath. Resting comfortably in bed. The LFTs are improving still. The creatinine is also improving is down to 1.7. No other significant events since the surgery and the patient is resting comfortably in bed. Chest x-ray was noted. On 04/01/2019 I'm seeing the patient for a follow-up. The patient intensive care unit. The pleural chest tube in the cardiac chest tube will be . The output from the chest tubes were noted. This patient is using the incentive spirometer. The patient is pulling up to thousand. Pulse ox is 94% on room air. Cardiac rhythm is still atrial fibrillation and the rate is controlled for now. The patient was given oral amiodarone. The patient had a lower blood pressure earlier this morning and the patient was given a bolus of normal saline. She is producing adequate amount of urine output. The chest tubes are all in place. There is no evidence of any air leak. Output is serosanguineous. No altered mentation. No other significant events overnight. The chest x-ray from today showed cardiomegaly and bibasilar infiltrates and small effusions. There is also widening of the vascular pedicle this is related to vascular ectasia. Reevaluated today on 04/02/2019, patient remains in the ICU, quite comfortable, in no distress, doing extremely well with incentive spirometry. She is now postoperative day #14, aortic valve replacement and emergent reexploration of the chest with evacuation of clots and control of bleeding. Placement of intra- aortic balloon pump. Postoperative day #2 pericardial window placement of right pleural chest tube and synchronized cardioversion. Reevaluated today on 04/03/2019, patient is postoperative day #15, sitting at a bedside chair, remains in the ICU. Hemodynamically stable, not requiring any pressors or inotropes. Tolerating oral intake well, patient has O2 saturation about 94% on room air, and she is achieving 1000 mL with incentive spirometry. Had fairly good amount of serosanguineous drainage from her chest tube/right pleural, and it remains in place. Her subxiphoid chest tube was removed yesterday. Renal profile is slightly worse than yesterday, creatinine is up to 1.6. Reevaluated today on 04/04/2019, remains in the intensive care unit, continues to have chest tube in place, significant amount of drainage noted over the last 24 hours roughly 400 mL of output noted. Patient had significant amount of urine output in the last 24 hours, responded to Lasix which was given 2. She is hemodynamically stable, not requiring any inotropic or pressors support. Symbicort was discontinued because of steroids induced dysphonia. Hemoglobin today is 8.5, BUN is 63 creatinine is 1.58, improving compared to yesterday. Patient was reevaluated today on 04/05/2019, patient is doing great, feeling much better, her right-sided chest tube was removed, she is on room air, and in no distress. She is hemodynamically stable, not requiring any inotropes or p ressors. Chest x-ray was reviewed, there is evidence of left basilar atelectasis and small effusion. There is also evidence of cardiomegaly. Labs were reviewed, electrolytes are normal BUN is 52 creatinine is 1.58. Basically unchanged compared to yesterday. Objective - Vital Signs Vital signs: Vital Signs Temp 98.1 F 04/05/19 07:49 Pulse 80 04/05/19 07:49 Resp 18 04/05/19 07:49 BP 94/50 04/05/19 07:49 Pulse Ox 100 04/05/19 07:49 Intake & Output 04/04/19 04/05/19 04/05/19 18:59 06:59 18:59 Intake Total 620 Output Total 560 910 950 Balance -560 -290 -950 Weight 114.5 kg 114.5 kg Intake: IV 20 Invasive Line 6 10 Invasive Line 7 10 Oral 600 Output: Chest Tube Drainage 310 110 50 Right Pleural 310 110 50 Urine 250 800 900 Other: Voiding Method Bedside Commode Bedside Commode Bedside Commode # Voids 1 1 # Bowel Movements 1 1 ABP, PAP, CO, CI - Last Documented Arterial Blood Pressure 102/67 Pulmonary Artery Pressure 38/16 Cardiac Output 4.7 Cardiac Index 2.1 - Exam Physical Exam: Revealed 79-year-old female in no distress. Head: Atraumatic, normocephalic. HEENT:[Neck is supple.] [No neck masses.] [No thyromegaly.] [No JVD.] Chest: Diminished breath sounds at the bases no crackles or rhonchi or wheezes. Symmetrical chest expansion noted. Cardiac Exam: [Normal S1 and S2, no S3 gallop, no murmur.] Abdomen: [Soft, nontender, no megaly, no rebound, no guarding, normal bowel sounds.] Extremities: [No clubbing, no edema, no cyanosis.] Neurological Exam: [No focal neurologic deficit.] Alert oriented 3. Psychiatric: Normal mood, affect and normal mental status examination. Skin: No rashes. - Labs CBC & Chem 7: 04/05/19 05:19 04/05/19 07:11 Labs: Abnormal Lab Results - Last 24 Hours (Table) 04/04/19 04/04/19 04/05/19 Range/Units 17:11 21:42 05:19 WBC 10.9 H (3.8-10.6) k/uL RBC 2.83 L (3.80-5.40) m/uL Hgb 9.0 L (11.4-16.0) gm/dL Hct 28.3 L (34.0-46.0) % RDW 19.2 H (11.5-15.5) % BUN (7-17) mg/dL Creatinine (0.52-1.04) mg/dL POC Glucose (mg/dL) 120 H 133 H (75-99) mg/dL 04/05/19 04/05/19 Range/Units 07:11 12:02 WBC (3.8-10.6) k/uL RBC (3.80-5.40) m/uL Hgb (11.4-16.0) gm/dL Hct (34.0-46.0) % RDW (11.5-15.5) % BUN 52 H (7-17) mg/dL Creatinine 1.58 H (0.52-1.04) mg/dL POC Glucose (mg/dL) 107 H (75-99) mg/dL Assessment and Plan Assessment: Impression: Severe aortic valve stenosis, status post bioprosthetic aortic valve replacement, postoperative day # 17 Moderate to severe mitral regurgitation, status post mitral valve repair postoperative day # 17 Single vessel coronary artery disease status post CABG 1 postoperative day # 17 Severe ischemic cardiomyopathy and LV dysfunction ejection fraction was 30% improved to 45% post surgery. Pericardial effusion requiring pericardial window postoperative day # 5 Multiple comorbidities including hypertension, hyperlipidemia, hypothyroidism, osteoarthritis, acute on chronic renal failure, acute postoperative bleeding, unexpected, postoperative atrial fibrillation, expected, status post synchronized cardioversion, postoperative pericardial effusion unexpected status post pericardial window, postoperative right pleural effusion requiring a right sided chest tube placement. Expected. Recommendation: Continue low-dose aspirin, beta blockers, Eliquis, amiodarone, strict I's and O's, encourage incentive spirometry, bronchodilators, increase activity, continue GI and DVT prophylaxis, continue insulin, continue pain control, diurese on a daily basis as needed. Patient will likely transfer sometime today to a monitor bed on selective once a bed is available. Possible discharge planning in the next 48 hours. Time with Patient: Less than 30
[2019-04-05] MEDS: ACETAMINOPHEN TAB 500 MG TAB PO PRN (15:52)
[2019-04-05] MEDS ORDERED: FUROSEMIDE 10 MG/ML 4 ML VIAL IV ONE (16:00)
[2019-04-05 17:12] LABS: Glucose,Whole Blood 105 mg/dL (75-99)
[2019-04-05] MEDS: SENNOSIDES-DOCUSATE SODIUM 1 EACH TAB PO SCH (20:05)
[2019-04-05] MEDS ORDERED: ATORVASTATIN 40 MG TAB PO SCH (21:00)
[2019-04-05 21:02] LABS: Glucose,Whole Blood 150 mg/dL (75-99)
[2019-04-05 22:17] VITALS: RESP 18
[2019-04-06 02:07] LABS: Glucose,Whole Blood 122 mg/dL (75-99)
[2019-04-06] MEDS: FERROUS SULFATE 325 MG TAB PO SCH (05:55)
[2019-04-06] MEDS: ASCORBIC ACID 500 MG TAB PO SCH (05:55)
[2019-04-06] MEDS: PANTOPRAZOLE 40 MG TABLET PO SCH (05:55)
[2019-04-06] MEDS: LEVOTHYROXINE 50 MCG TAB PO SCH (05:55)
[2019-04-06 06:20] LABS: Glucose,Whole Blood 102 mg/dL (75-99)
[2019-04-06 06:31] LABS: Anisocytosis Slight; HCT 30.3 % (34.0-46.0); HGB 9.1 gm/dL (11.4-16.0); Hypochromasia Marked; MCHC 30.2 g/dL (31.0-37.0); MCV 99.1 fL (80.0-100.0); Macrocytosis Slight; Mean Platelet Volume 7.5; Platelet Count 158 k/uL (150-450); RBC 3.05 m/uL (3.80-5.40); RDW 17.8 % (11.5-15.5); WBC 9.7 k/uL (3.8-10.6)
[2019-04-06] MEDS: INSULIN ASPART (NovoLOG) 100 UNIT/ML VIAL SQ SCH ×2 (06:32→12:32)
[2019-04-06 06:43] LABS: Calcium 8.8 mg/dL (8.4-10.2); Potassium 3.7 mmol/L (3.5-5.1)
[2019-04-06] MEDS ORDERED: FUROSEMIDE 10 MG/ML 4 ML VIAL IV STA (07:15)
--- NOTE | 2019-04-06 07:33 | P.PN ---
Subjective Progress Note Date: 04/06/19 Principal diagnosis: Severe aortic valve stenosis, moderate to severe mitral valve regurgitation, single-vessel coronary artery disease, and a decreased LV function, chronic systolic heart failure with a preoperative ejection fraction of 30%. History of hypertension, hyperlipidemia, hypothyroid, osteoarthritis, chronic renal failure with baseline creatinine 1.3-1.6, right internal carotid artery stenosis 50-70%, previous tobacco dependance with preoperative FEV1 93% of predicted. POD #18 aortic valve replacement with a #23 mm Avalus bioprosthetic Medtronic aortic valve, mitral valve repair with a #30 mm Carbomedics AnnuloFlex band. Coronary artery bypass grafting 1 vessel with a reverse greater saphenous vein off the aorta to the circumflex coronary artery and a clip ligation of the left atrial appendage with a 35 mm Atriclip. Endoscopic harvesting of the left gr eater saphenous vein. Intraoperative transesophageal echocardiogram. Acute postoperative bleeding, hemorrhagic shock, an unexpected outcome Reactive thrombocytopenia, expected POD #18 Emergent re-exploration of the chest, evacuation of clots and control of bleed. Placement of intra-aortic balloon pump. Post operative atrial fibrillation, unexpected but potential outcome due to multiple comorbidities. Transaminitis, unexpected, likely from hypoperfusion. Postoperative pericardial effusion, unexpected outcome POD #6 pericardial window, placement of right pleural chest tube and synchroniz ed cardioversion Postoperative right pleural effusion, unexpected The patient is currently sitting up in a recliner in no acute distress on the cardiac step-down unit. Denies pain, states shortness of breath has improved. She has ambulated in the hallway multiple times. Right pleural chest tube discontinued yesterday. Patient states she continues to feel better every day. Currently in normal sinus rhythm and hemodynamically stable, does have occasional runs of controlled afib for short bursts. No new concerns. Feels ready to go to rehab today. Objective - Vital Signs Vital signs: Vital Signs Temp 98.3 F 04/06/19 04:00 Pulse 73 04/06/19 04:00 Resp 18 04/06/19 04:00 BP 119/64 04/06/19 04:00 Pulse Ox 97 04/06/19 04:00 Intake & Output 04/05/19 04/06/19 04/06/19 18:59 06:59 18:59 Intake Total 120 120 Output Total 950 1 Balance -830 119 Weight 114.5 kg 110.4 kg Intake: Oral 120 120 Output: Chest Tube Drainage 50 Right Pleural 50 Urine 900 1 Other: Voiding Method Bedside Commode Bedside Commode # Voids 1 # Bowel Movements 1 ABP, PAP, CO, CI - Last Documented Arterial Blood Pressure 102/67 Pulmonary Artery Pressure 38/16 Cardiac Output 4.7 Cardiac Index 2.1 - Constitutional General appearance: Present: cooperative, no acute distress, obese - Respiratory Details: Lungs sounds diminished bilaterally with coarse breath sounds in the right base. Respirations even, non-labored. Currently on room air with oxygen saturation 97%. Able to achieve 1100 mL on incentive spirometry. Strong cough. - Cardiovascular Details: S1/S2 present. Regular rate and rhythm, sinus rhythm on telemetry. Sternum stable. Palpable peripheral pulses bilaterally. Trace bilateral lower extremity edema remains. No calf pain or tenderness noted. Heart hugger in place with patient demonstrating appropriate use. Antiembolism stockings, SCDs present. - Gastrointestinal Gastrointestinal Comment(s): Abdomen soft, nontender, nondistended. Active bowel sounds present 4 quadrants. Tolerating diet. Positive bowel movement 04/05. - Genitourinary Genitourinary Comment(s): Continues to void clear yellow urine. - Integumentary Integumentary Comment(s): Skin is warm and dry with evidence of good perfusion. Anterior chest incision well approximated and covered with dry intact dressing. Left lower extremity EVH site well approximated. Positive serous drainage from right former chest tube site, covered with abd. - Neurologic Neurologic: Present: CNII-XII intact - Musculoskeletal Musculoskeletal: Present: gait normal, strength equal bilaterally - Psychiatric Psychiatric: Present: A&O x's 3, appropriate affect, intact judgment & insight - Allied health notes Allied health notes reviewed: nursing - Labs CBC & Chem 7: 04/06/19 06:14 04/06/19 06:14 Labs: Abnormal Lab Results - Last 24 Hours (Table) 04/05/19 04/05/19 04/05/19 Range/Units 07:11 12:02 17:03 RBC (3.80-5.40) m/uL Hgb (11.4-16.0) gm/dL Hct (34.0-46.0) % MCHC (31.0-37.0) g/dL RDW (11.5-15.5) % Carbon Dioxide (22-30) mmol/L BUN 52 H (7-17) mg/dL Creatinine 1.58 H (0.52-1.04) mg/dL POC Glucose (mg/dL) 107 H 105 H (75-99) mg/dL 04/05/19 04/06/19 04/06/19 Range/Units 21:00 02:06 06:14 RBC 3.05 L (3.80-5.40) m/uL Hgb 9.1 L (11.4-16.0) gm/dL Hct 30.3 L (34.0-46.0) % MCHC 30.2 L (31.0-37.0) g/dL RDW 17.8 H (11.5-15.5) % Carbon Dioxide (22-30) mmol/L BUN (7-17) mg/dL Creatinine (0.52-1.04) mg/dL POC Glucose (mg/dL) 150 H 122 H (75-99) mg/dL 04/06/19 04/06/19 Range/Units 06:14 06:19 RBC (3.80-5.40) m/uL Hgb (11.4-16.0) gm/dL Hct (34.0-46.0) % MCHC (31.0-37.0) g/dL RDW (11.5-15.5) % Carbon Dioxide 33 H (22-30) mmol/L BUN 47 H (7-17) mg/dL Creatinine 1.56 H (0.52-1.04) mg/dL POC Glucose (mg/dL) 102 H (75-99) mg/dL - Imaging and Cardiology Chest x-ray: image reviewed Assessment and Plan Assessment: 1. Severe aortic valve stenosis, status post bioprosthetic aortic valve replacement 2. Moderate to severe mitral valve regurgitation, status post mitral valve rep air 3. Single-vessel coronary artery disease, status post 1 vessel CABG 4. Decreased LV function, chronic systolic heart failure, ischemic cardiomyopathy with preoperative EF 30%, EF improved to 40-45% post surgery 5. History of hypertension 6. Hyperlipidemia 7. Hypothyroid 8. Osteoarthritis 9. Right internal carotid artery stenosis 50-69% 10. Acute on chronic renal failure, baseline creatinine 1.3-1.6 11. Previous tobacco dependence with preoperative FEV1 93% of predicted 12. Acute postoperative bleeding, hemorrhagic shock, status post emergent re- exploration of the chest with evacuation of clots and control of the bleed 13. Thrombocytopenia, reactive 14. Postoperative atrial fibrillation, status post clip ligation of left atrial appendage, status post synchronized cardioversion 15. Transaminitis, likely related to hypoperfusion 16. Postoperative pericardial effusion, status post pericardial window 17. Postoperative right pleural effusion, status post placement of right pleural chest tube Plan: 1. Continue low-dose aspirin, statin, beta heriberto therapy. Will increase beta heriberto therapy as tolerated. 2. Continue amiodarone. Continue Eliquis for anticoagulation. 3. Likely will add low dose ARLEN inhibitor for afterload reduction. 4. Continue fluid restrictions, daily weights, strict accurate I and O's. 5. Encourage incentive spirometry 10 times every hour while awake. Patient needs aggressive pulmonary hygiene. 6. Bronchodilators per pulmonology. 7. Increase activity, ambulate as tolerated. PT/OT/cardiac rehab following. 8. Will monitor daily labs and x-rays. Electrolytes replacement per protocol. 9. GI/DVT prophylaxis. 10. Insulin management per primary care service. 11. Pain control current medication regimen. 12. Will discontinue Iron, vitamin C at discharge. 13. Will give Lasix 40 mg IV push 1 today. 14. Discharge planning in progress. Anticipate discharge to inpatient rehab later today with consultations for cardiology, pulmonology, and Dr. Vale. 15. More recommendations to follow as patient progresses. Time with Patient: Greater than 30
[2019-04-06] MEDS: IPRATROPIUM-ALBUTEROL 3 ML NEB INHALATION SCH ×3 (08:23→16:02)
--- NOTE | 2019-04-06 08:23 | XR ---
EXAMINATION TYPE: XR chest 2V DATE OF EXAM: 04/06/2019 COMPARISON: 04/05/2019 TECHNIQUE: PA and lateral views submitted. HISTORY: Post cardiac surgery FINDINGS: Chest tube is been removed. Bilateral consolidation and pleural effusion. Heart mildly prominent. Pos tsurgical changes. Arthropathy shoulders. No overt failure. Hypertrophic and degenerative changes of the spine. IMPRESSION: 1. Bilateral infiltrate and small effusion stable.
[2019-04-06] MEDS: ASPIRIN 81 MG PO SCH (09:01)
[2019-04-06] MEDS: CHOLECALCIFEROL 1,000 UNIT TAB PO SCH (09:01)
[2019-04-06] MEDS: AMIODARONE 200 MG TAB PO SCH (09:01)
[2019-04-06] MEDS: METOPROLOL TARTRATE 25 MG TAB PO SCH (09:01)
[2019-04-06] MEDS: APIXABAN 2.5 MG TABLET PO SCH (09:01)
--- NOTE | 2019-04-06 09:51 | P.DS ---
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 Severe aortic valve stenosis 2. Moderate to severe mitral valve regurgitation 3. Single-vessel coronary artery disease 4. Chronic systolic heart failure with preoperative EF 30%, with improvement to 40-45% postoperative 5. Hypertension 6. Hyperlipidemia 7. Hypothyroid 8. Osteoarthritis 9. Chronic renal failure with baseline creatinine 1.3-1.6 10. Right internal carotid artery stenosis 50-70% 11. Previous tobacco dependence with preoperative FEV1 93% of predicted 12. Acute postoperative bleeding, hemorrhagic shock 13. Reactive thrombocytopenia 14. Postoperative atrial fibrillation 15. Transaminitis 16. Postoperative pericardial effusion 17. Postoperative right pleural effusion PRINCIPAL PROCEDURE: 1. Aortic valve replacement with #23 mm Avalus bioprosthetic Medtronic aortic valve 2. Mitral valve repair with a #30 mm CarboMedics AnnuloFlex band 3. Coronary artery bypass grafting 1 vessel with a reverse greater saphenous vein off the aorta to the circumflex coronary artery 4. Clip ligation of the left atrial appendage with a 35 mm AtriClip 5. Endoscopic harvesting of the left greater saphenous vein 6. Intraoperative transesophageal echocardiogram 7. Emergent re-exploration of the chest, evacuation of clots and control of bleed with placement of intra-aortic balloon pump 8. Pericardial window, placement of right pleural chest tube and synchronized cardioversion HISTORY OF PRESENT ILLNESS: This is a 78-year-old female patient who follows on an outpatient basis with Dr Vale and Dr. Lima. She had been noticing mild shortness of breath with activity recently but attributed it to just getting older. She takes care of her on a daily basis. She was seen in the cardiology office by Dr. Lima and a transthoracic echocardiogram was completed demonstrating reduced LV function as well as worsening of her known aortic stenosis. She was recommended to have a transesophageal echocardiogram and cardiac catheterization. The heart catheterization demonstrated a mid lesion of 60-70% in the circumflex coronary artery. Transesophageal echocardiogram demonstrated severe aortic stenosis with a valve area 1-1.1 cm, moderate mitral regurgitation with left atrial enlargement, dilated left ventricle with global hypokinesia, and ejection fraction 30%. The patient was referred to Dr. Cabrera from cardiothoracic surgery. She was recommended to undergo bioprosthetic aortic valve replacement, mitral valve repair, and single-vessel coronary artery bypass grafting surgery. The usual perioperative course was discussed in detail with the patient and her family, all risks and benefits were explained, all questions were answered, and consent was obtained to proceed with surgery. The patient was scheduled at the earliest possible date after obtaining dental clearance. HOSPITAL COURSE: The patient was brought to the hospital on 03/19/2019, taken to the preoperative area, prepared in the usual fashion, and subsequently taken to the operating room where Dr. Cabrera performed aortic valve replacement with #23 mm Avalus bioprosthetic Medtronic aortic valve, mitral valve repair with a #30 mm CarboMedics AnnuloFlex band, coronary artery bypass grafting 1 vessel with a reverse greater saphenous vein off the aorta to the circumflex coronary artery, clip ligation of the left atrial appendage with a 35 mm AtriClip, endoscopic harvesting of the left greater saphenous vein, and intraoperative transesophageal echocardiogram. Upon completion of surgery the patient was transferred to the cardiovascular intensive care unit where she was recovered, monitored hemodynamically, and where she progressed to cardiac rehabilitation phase 1. Post surgery she continued to have dark bloody output from her chest tubes and she returned to the operating room for emergent re-exploration of the chest, evacuation of clots and control of bleed with placement of intra-aortic balloon pump. In addition, she received multiple blood products. She did eventually stabilize, the intra-aortic balloon pump was discontinued and she was extubated on postop day #1. All lines, tubes, and drips were discontinued when appropriate. She did experience postoperative atrial fibrillation, which was initially treated with amiodarone, but due to elevation in her liver enzymes amiodarone was discontinued. She continued to have marginal blood pressure and was in and out of atrial fibrillation, and a repeat transthoracic echocardiogram was completed demonstrating improvement in LV function, however a moderate generalized pericardial effusion was present. She was again taken to the operating room for pericardial window and placement of a right pleural chest tube with synchronized cardioversion. Shortly after surgery she returned to controlled atrial fibrillation. Her hemodynamics remained stable and she was restarted on amiodarone for atrial fibrillation as well as Eliquis for anticoagulation. Mediastinal and right pleural chest tubes were discontinued when appropriate. She continued to improve clinically although she continued to have short episodes of controlled atrial fibrillation and she was eventually transferred to [facility] cardiac stepdown unit for further monitoring and rehabilitation. Her oxygen was titrated down, she continued to work with physical and occupational therapy, she was tolerating oral diet, her pain was controlled, and she was ready to be discharged to [facility] inpatient rehab on postoperative day #18. She received written and verbal instruction regarding her medications, activity restrictions, signs and symptoms requiring physician notification, and follow-up appointments. COMPLICATIONS: The patient experienced postoperative complications of postoperative bleeding and hemorrhagic shock, thrombocytopenia, itching fibrillation, transaminitis, pericardial effusion, and right pleural effusion, all which were treated accordingly.. Patient Condition at Discharge: Stable Plan - Discharge Summary Discharge Rx Participant: No New Discharge Prescriptions: New Amiodarone [Cordarone] 200 mg PO BID tab Ipratropium-Albuterol Nebulize [Duoneb 0.5 mg-3 mg/3 ml Soln] 3 ml INHALATION RT-QID ampul.neb Ipratropium-Albuterol Nebulize [Duoneb 0.5 mg-3 mg/3 ml Soln] 3 ml INHALATION RT-Q2H PRN ampul.neb PRN Reason: Shortness Of Breath Or Wheezing Apixaban [Eliquis] 2.5 mg PO BID tablet Potassium Chloride ER [K-Dur 20] 20 meq PO DAILY #7 tab Furosemide [Lasix] 40 mg PO BID #14 tablet Atorvastatin [Lipitor] 40 mg PO HS tab Metoprolol Tartrate [Lopressor] 25 mg PO TID tab INSULIN ASPART (NovoLOG) [NovoLOG (formulary)] 0 unit SQ ACHS vial Pantoprazole [Protonix] 40 mg PO AC-BRKFST tablet.dr Welch-Docusate Sodium [Senokot-S] 2 each PO HS PRN tab PRN Reason: Constipation Acetaminophen Tab [Tylenol] 1,000 mg PO Q6HR PRN tab PRN Reason: Fever and/ or Mild Pain Lisinopril [Zestril] 2.5 mg PO DAILY@1200 tab Continue Levothyroxine Sodium [Synthroid] 50 mcg PO QAM Multivit-Min/Iron/Folic/Lutein [Centrum Silver Women Tablet] 1 tab PO DAILY Aspirin [Adult Low Dose Aspirin EC] 81 mg PO DAILY Cholecalciferol [Vitamin D3 (25 Mcg = 1000 Iu)] 1,000 unit PO DAILY Discontinued Metoprolol Succinate [Toprol XL] 25 mg PO HS amLODIPine BESYLATE/BENAZEPRIL [Lotrel 5-40 mg Capsule] 1 cap PO DAILY Simvastatin [Zocor] 20 mg PO HS Acetaminophen Tab [Tylenol Tab] 650 mg PO Q4H PRN PRN Reason: Pain Penicillin V Potassium [Pen Vee K] 500 mg PO QID Discharge Medication List Aspirin [Adult Low Dose Aspirin EC] 81 mg PO DAILY 01/28/17 [History] Levothyroxine Sodium [Synthroid] 50 mcg PO QAM 01/28/17 [History] Multivit-Min/Iron/Folic/Lutein [Centrum Silver Women Tablet] 1 tab PO DAILY 01/28/17 [History] Cholecalciferol [Vitamin D3 (25 Mcg = 1000 Iu)] 1,000 unit PO DAILY 03/19/19 [History] Acetaminophen Tab [Tylenol] 1,000 mg PO Q6HR PRN tab 04/06/19 [Rx] Amiodarone [Cordarone] 200 mg PO BID tab 04/06/19 [Rx] Apixaban [Eliquis] 2.5 mg PO BID tablet 04/06/19 [Rx] Atorvastatin [Lipitor] 40 mg PO HS tab 04/06/19 [Rx] Furosemide [Lasix] 40 mg PO BID #14 tablet 04/06/19 [Rx] INSULIN ASPART (NovoLOG) [NovoLOG (formulary)] 0 unit SQ ACHS vial 04/06/19 [Rx] Ipratropium-Albuterol Nebulize [Duoneb 0.5 mg-3 mg/3 ml Soln] 3 ml INHALATION RT-Q2H PRN ampul.neb 04/06/19 [Rx] Ipratropium-Albuterol Nebulize [Duoneb 0.5 mg-3 mg/3 ml Soln] 3 ml INHALATION RT-QID ampul.neb 04/06/19 [Rx] Lisinopril [Zestril] 2.5 mg PO DAILY@1200 tab 04/06/19 [Rx] Metoprolol Tartrate [Lopressor] 25 mg PO TID tab 04/06/19 [Rx] Pantoprazole [Protonix] 40 mg PO AC-BRKFST tablet. 04/06/19 [Rx] Potassium Chloride ER [K-Dur 20] 20 meq PO DAILY #7 tab 04/06/19 [Rx] Sennosides-Docusate Sodium [Senokot-S] 2 each PO HS PRN tab 04/06/19 [Rx] Follow up Appointment(s)/Referral(s): Dimitri Lima MD [STAFF PHYSICIAN] - 1 Week (Please call to make appointment upon discharge from [facility] Inpatient Rehab) Mati Vale DO [Primary Care Provider] - 1 Week (Please call to make appointment upon discharge from [facility]patient [facility]) Marcus Osborn DO [Doctor of Osteopathic Medicine] - 1 Week (Please call to make appointment upon discharge from [facility]patient [facility]) [facility], [NON-STAFF] - 1 Week Lloyd Cabrera MD [STAFF PHYSICIAN] - 04/11/19 1:00 pm (Tuesday) Patient Instructions/Handouts: Sternal Precautions (GEN), CABG (Coronary Artery Bypass Graft) (DC) Activity/Diet/Wound Care/Special Instructions: CONSULTS AT [facility]: 1. Dr. Lima for cardiology 2. Dr. Osborn for pulmonology 3. Dr. Vale for primary care DISCHARGE INSTRUCTIONS: 1. No driving for 4 weeks, or until physician gives their ok. 2. The patient should sleep in their own bed, no medical bed needed. 3. Stairs are not an issue. If the bedroom is upstairs, it is advised that the patient go up at night and down in the morning for the first week. Go slowly, using handrail and take 1 step at a time. 4. LAUREL hose are to be worn for 30 days or until physician discontinues. 5. Heart hugger is to be worn 100% of the time until physician discontinues.(except when showering) 6. No lifting, pushing, or pulling more than 10 pounds for 12 weeks. The physician will advise of any restriction changes. 7. The patient is expected to continue the prescribed walking program. 8. Continue pain control per as needed orders. 9. Continue with incentive spirometry and splinting/heart hugger until otherwise directed by the physician. 10. Must shower daily using liquid antibacterial soap and a separate white washcloth for each individual incision. 11. Routine sternal incision care. No powders, lotions, ointments on incisions. 12. Please call surgeon/PLUGGER MAN for temp greater than 101 F or purulent drainage from incisions. 13. All prescriptions given by surgeon for 30 days. Refills need to be filled through cardiology teacher/primary care physician. 14. A Red armband has been placed on the patient. It should be worn for 30 days post surgery and will be removed by the cardiac surgeons. If an ER visit is necessary, please make sure the number on the Red armband is called. INPATIENT REHAB/HOME HEALTH SERVICES TO PROVIDE: RN SKILLED HOME CARE SERVICES FOR POST-OP SURGICAL PATIENTS WITH THE FOLLOWING: Coronary Artery Bypass Surgery (CABG), Mitral Valve Re placement/Repair ( MVR), Aortic Valve Replacement/Repair (AVR) RN TO CONTINUE EDUCATION FROM ``ROAD TO A HEALTH HEART PATIENT EDUCATION MANUAL (GIVEN TO PATIENT IN THE HOSPITAL) MEDICATION RECONCILIATION WITH EDUCATION NEEDED ON FIRST HOME VISIT EMPHASIZE IMPORTANCE OF WEARING BREAST SUPPORT/HEART HUGGER ENCOURAGE USE OF INCENTIVE SPIROMETER 10 X EVERY HOUR WHILE AWAKE ENCOURAGE UTILIZATION OF LOWER EXTREMITY COMPRESSION STOCKINGS/LAUREL HOSE and ELEVATE LEGS ABOVE LEVEL OF HEART WHILE AT REST. ENCOURAGE AMBULATION 3-5x/day INCREASING TOLERATES, WHILE AVOID EXTREMES IN TEMPERATURE FREQUENCY: RN TO OPEN THE PATIENT WITHIN 24 HOURS OF DISCHARGE FROM INPATIENT REHAB WITH TELEHEALTH INSTALLED AT [facility] [place], RN TO VISIT 2-3 X A WEEK FOR 4 WEEKS ESTABLISHED BY PATIENT NEEDS. LABORATORY: CBC, CMP TO BE DRAWN PER IPR PROTOCOL TELEHEALTH PARAMETERS: WEIGHT: NOTIFY MD OF WEIGHT GAIN OF 2 LBS IN 24 HOURS OR 5 LBS IN ONE WEEK HR: NOTIFY MD OF HR <55 BPM OR HR>100 BPM BP: NOTIFY MD IF BP <90/55 OR BP>140/100 O2 SAT: NOTIFY MD IF PO2<93% ON ROOM AIR SEND TELEHEALTH REPORT TO FIRST SAMPLER AND CARDIOVASCULAR SURGEON THE FIRST WEEK OF CARE AND THEN BI-WEEKLY. PLEASE ADDITIONALLY COMMUNICATE ANY ABNORMALS AND NEW FINDINGS TO THE SURGEONS OFFICE.
--- NOTE | 2019-04-06 10:13 | P.PN ---
Subjective Progress Note Date: 04/06/19 This is a 79-year-old female status post CABG X1, aortic valve replacement with bioprosthetic valve, mitral valve repair in a patient with severe aortic valve stenosis, moderate to severe mitral valve regurgitation, CAD, ischemic cardiomyopathy-preop EF 30%, pulmonary hypertension, hypertension, hypothyro idism and multiple other medical issues. Shortly after returning to ICU postop, she developed increased chest tube ouput of 1.3 L over 1-1/2 hours, returned to the OR and required emergent reexploration of the chest with evacuation of clots, control bleeding, placement of IABP. Mediastinal and left pleural chest tube drainage improved. This morning IABP weaned to 1:3 with plans for discontinuing this morning. Continuies on DIprovan, Levophed, Primacor and insulin drips. Cardiac output 7.4, cardiac index 3.4. Maintained on mechanical ventilation with FiO2 40%/+5 of PEEP. Chest x-ray reporting bilateral consolidation and pleural effusion. Telemetry accelerated junctional. 03/21/2019 Extubated yesterday evening.Maintaining O2 sats in the high 90s on 4 L nasal cannula. Incentive spirometer 800 to 1000. Maintained on insulin and Levophed drips. Recent cardiac output/cardiac index 6.1/2.8 .Developed atrial fibrillation last night, received digoxin. Remains in atrial fibrillation, receiving amiodarone bolus with drip pending. Magnesium 2.2, potassium 4.7. Hemoglobin remains stable at 8.5, platelets 62. creatinine 1.26 .Pain controlled. 03/22/2019 maintained on insulin, amiodarone, Levophed drips. Telemetry atrial fibrillation. Amiodarone discontinued secondary to elevated transminases; continues on metoprolol. Arixtra initiated. IS up to 1000. Maintaining O2 sats in the high 90s on 4 L nasal cannula. Chest x-ray reporting mild central vascular congestion, small bilateral pleural effusions and bibasilar acute infiltrates versus atelectasis-no significant change. Maintained on Lasix IV push with 24-hour I&O reflecting a positive fluid balance. 24-hour I&O reflects mediastinal chest tube for 417mls and left pleural chest tube 190mls in the next 24 hours.Hemoglobin 7.8, platelets 57. CO/CI 4.7/2.1. Creatinine 1.37. T-max 100.8, WBC 16.7. Blood sugars controlled. 03/23/2019 All drips have been weaned off. Cardiology discussing removing both pleural and mediastinal chest tubes today .Telemetry controlled atrial fibrillation on beta heriberto. Mild shortness of breath, maintaining O2 sats in the mid 90s on 3 L nasal cannula. Chest x-ray reporting bilateral atelectasis, stable small effusion, fluid overload. IS up to 750. Diuresing well on Lasix IV push with 24-hour I&O reflecting a negative fluid balance. 03/26/19 Sitting up in chair, continues to improve. Diuresing well with edema improving. Bicarb 34, sodium level 130, hemoglobin 7.[address] pending.Incentive spirometer up to almost 1000. Maintaining O2 sats in the mid 90s on room air. LFTs trending down. Controlled proximal atrial fibrillation, on Eliquis. Has not yet walked today, but states did ambulate yesterday in the hallway. Potassium of 3.4 being supplemented. 03/27/2019 sitting up in chair, maintaining O2 sats in the high 90s on 2 L nasal cannula.IS up to 1000. Ambulated in the hallway -Complains of mild shortness of breath, exertional shortness of breath. Chest x-ray reporting basilar effusions, atelectasis. Anticoagulated with Eliquis. Hemoglobin 7.6. Afebrile, WBC 14.5. Creatinine up to 1.83, Lasix discontinued. Sodium 131, fluid restrictions maintained. Developed paroximal atrial fibrillation last night, amiodarone drip initiated. Telemetry currently sinus rhythm with occasional PVC. amiodarone drip converted to oral. Bradycardic,Beta heriberto dose decreased. AST 107, ALT 319, T bili 1.2, statin remains on hold. Blood sugars controlled. Afebrile. 03/28/2019 telemetry sinus rhythm with occasional accelerated junctional rhythm, bradycardic at times with heart rates in the 50s. Borderline hypotension with MAP in the low 70s. Maintaining O2 sats low 90s to 95% on room air .Sitting up in chair, and does not feel well, complains of increased shortness of breath, fatigue. Pale appearance. Hgb 7.4, scheduled for transfusion of packed RBCs amiodarone discontinued as LFTs remain elevated, mildly improved with T bili up to 1.5. 24-hour I&O reflecting a negative fluid balance. Chest x-ray reporting cardiomegaly, possible interstitial edema, pulmonary venous hypertension, bibasilar effusions, atelectasis, prominent aorta with no evidence of pneumothorax. Incentive spirometer up to 750. 03/29/2019 Reports less fatigue this morning, shortness of breath, positive surgical site chest pain. yesterday she received 1 unit of packed RBCs, albumin with current hemoglobin at 8.0. Creatinine 1.84. Controlled atrial fibrillati on earlier this morning with reported multiple nonsustained runs of V. tach. Received additional Lopressor. Magnesium 2.30, potassium 4.2, bicarb 31. Maintaining O2 sats in the mid 90s on room air, 99% on 2 L nasal cannula. Chest x-ray pending. IS decreased to 500.Systolic blood pressure currently in the 90s. Telemetry currently reported patient converted to sinus bradycardia, heart rate in the 50s. LFTs continue to trend down slowly, T bili up to 1.8. 03/30/2019 maintaining O2 sats in the mid to high 90s on room air, complains of periodic shortness of breath at rest as well as exertional shortness of breath. IS up to 750. Chest x-ray reporting similar with probable bibasilar atelectasis, small effusions, stable cardiomegaly, aortic aneurysm. Telemetry atrial fibrillation , T bili 1.5, LFTs improving. Hemoglobin 8.5. Repeat echo reporting moderate paracardial effusion.Creatinine 1.89. Afebrile, WBC increased to 16.8. 04/02/2019 currently in the ICU, postop day #2 paracardial window, placement of right pleural chest tube and synchronized cardioversion. Yesterday she received amiodarone bolus, converted to sinus rhythm this morning . Feels better,sitting up in recliner, no acute distress with significant improvement in shortness of breath. Incentive spirometer up to 1000. Renal function stable. Chest x-ray reporting persistent widening of the mediastinum, further reviewed as per cardiothoracic surgery. Mediastinal chest tube discontinued. 04/03/2019 Off all drips, hemodynamically stable. Telemetry normal sinus rhythm sitting up in chair, no acute distress. Chest x-ray reporting bilateral infiltrate, small effusion with 5% right apical pneumothorax. Maintaining O2 sats of 94-95% on room air. Incentive spirometer up to 1000. Reports less short ness of breath. She ambulated in the hallway today, tolerated exertion well. Positive bowel movement yesterday. Blood sugars controlled. Creatinine 1.63. 04/04/2019 patient is overflow, awaiting a telemetry bed. sitting up in chair, incentive spirometer up to 1000, sinus rhythm with bundle branch positive. VSS off of inotropes and pressors , maintaining O2 sats of mid 90s on room air. Chest x-ray reporting pneumothorax no longer evident, probable left lower lobe atelectasis and associated effusion. positive bowel movement today.Ambulating, tolerating exertion well. Complains of sore, dry throat, attributed to oxygen. Received Lasix 40 IV push earlier today and schedule again later this afternoon. Creatinine 1.58. Borderline hypotension. 04/05/19 telemetry sinus rhythm, though patient did have a 2 hour run of controlled A. fib last night reported per staff. Vital signs stable. Right pleural chest tube to waterseal. Denies chest pain, palpitations. Ambulating in hallway, tolerating exertion well. Shortness of breath significantly improved. Incentive spirometer up to 1000, maintaining O2 sats of high 90s on room air. Diet intake improving, consuming 75%, blood sugars controlled. Creatinine stable, 1.58. 04/06/2019 Right pleural chest tube discontinued yesterday, breathing/shortness of breath continues to improve, IS up to 1000. Transferred to stepdown unit ye sterday, doing well. Good diet intake, no nausea, vomiting or diarrhea.blood sugars controlled. Telemetry sinus rhythm with paroximal afib, controlled. Ambulating in hallway, tolerating well. Objective - Vital Signs Vital signs: Vital Signs Temp 98.3 F 04/06/19 04:00 Pulse 73 04/06/19 04:00 Resp 18 04/06/19 04:00 BP 119/64 04/06/19 04:00 Pulse Ox 97 04/06/19 04:00 Intake & Output 04/05/19 04/06/19 04/06/19 18:59 06:59 18:59 Intake Total 120 120 Output Total 950 1 Balance -830 119 Weight 114.5 kg 110.4 kg Intake: Oral 120 120 Output: Chest Tube Drainage 50 Right Pleural 50 Urine 900 1 Other: Voiding Method Bedside Commode Bedside Commode # Voids 1 # Bowel Movements 1 ABP, PAP, CO, CI - Last Documented Arterial Blood Pressure 102/67 Pulmonary Artery Pressure 38/16 Cardiac Output 4.7 Cardiac Index 2.1 - Exam PHYSICAL EXAM: VITAL SIGNS: As above GENERAL: Sitting up in chair, no acute distress HEENT: Conjunctivae normal. eyes normal. Oral mucosa moist NECK: Supple, No JVD. No thyroid enlargement. CARDIOVASCULAR: S1, S2 , regular No murmur, rubs or gallops. RESPIRATION: Nonlabored, Breath sounds diminished in the bases, No rhonchi, crackles or wheezes. ABDOMEN: Soft, nontender . No guarding. no masses palpable. Positive Bowel sounds. LEGS: Minimal edema, positive peripheral pulses, LAUREL hose. PSYCHIATRY: Alert and oriented 3, mood and affect normal NERVOUS SYSTEM: Cranial nerves II through XII grossly intact, moves all 4 extremities, mild diffuse generalized weakness. No focal deficits. - Labs CBC & Chem 7: 04/06/19 06:14 04/06/19 06:14 Labs: Abnormal Lab Results - Last 24 Hours (Table) 04/05/19 04/05/19 04/05/19 Range/Units 07:11 12:02 17:03 RBC (3.80-5.40) m/uL Hgb (11.4-16.0) gm/dL Hct (34.0-46.0) % MCHC (31.0-37.0) g/dL RDW (11.5-15.5) % Carbon Dioxide (22-30) mmol/L BUN 52 H (7-17) mg/dL Creatinine 1.58 H (0.52-1.04) mg/dL POC Glucose (mg/dL) 107 H 105 H (75-99) mg/dL 04/05/19 04/06/19 04/06/19 Range/Units 21:00 02:06 06:14 RBC 3.05 L (3.80-5.40) m/uL Hgb 9.1 L (11.4-16.0) gm/dL Hct 30.3 L (34.0-46.0) % MCHC 30.2 L (31.0-37.0) g/dL RDW 17.8 H (11.5-15.5) % Carbon Dioxide (22-30) mmol/L BUN (7-17) mg/dL Creatinine (0.52-1.04) mg/dL POC Glucose (mg/dL) 150 H 122 H (75-99) mg/dL 04/06/19 04/06/19 Range/Units 06:14 06:19 RBC (3.80-5.40) m/uL Hgb (11.4-16.0) gm/dL Hct (34.0-46.0) % MCHC (31.0-37.0) g/dL RDW (11.5-15.5) % Carbon Dioxide 33 H (22-30) mmol/L BUN 47 H (7-17) mg/dL Creatinine 1.56 H (0.52-1.04) mg/dL POC Glucose (mg/dL) 102 H (75-99) mg/dL Assessment and Plan Assessment: -Status post CABG 1 with Aortic and Mitral valve repair with left atrial appendage exclusion, secondary to severe aortic valve stenosis and moderate to severe mitral valve regurgitation. Bioprosthetic aortic valve. -Acute postoperative bleeding, unexpected outcome, status post emergent reexploration, evacuation of clot and control of bleeding, status post placement of IABP. -Acute blood loss anemia secondary to the above, status post transfusions of multiple products; RBCs, cryoprecipitate, FFP, platelets -Postoperative hypotension, secondary to hemorrhagic shock, unexpected outcome, status post pressor dependent -Pericardial effusion status post pericardial window -Postoperative right pleural effusion, status post right pleural chest tube - Synchronized cardioversion -Thrombocytopenia -Postoperative paroximal atrial fibrillation -Secondary pulmonary hypertension -Chronic systolic CHF, Ischemic cardiomyopathy, preop EF 30%, improved post surgery EF 40-45%. -Hyperlipidemia -Hypertension, history of -Hypothyroidism -Right ICA stenosis 50-70% -History of nicotine dependence -Acute on chronic renal failure, stage III, secondary to cardiorenal syndrome. -Transaminitis -Nonsustained runs of V. tach -Atelectasis Plan: Continue current medication regime ,monitoring and symptomatic treatment. Discharge planning in progress for today to [facility] inpatient rehab. Continue with aggressive pulmonary toileting with incentive spirometer. Close monitoring of renal function, electrolytes, Accu-Cheks. Further recommendations to follow. The impression and plan of care has been dictated as directed. : I performed a history and examination of this patient, discussed the same with the dictator. I agree with the dictator's note ,documented as a scribe. Any additional findings or plans will be noted. Time taken: 35 minutes.
--- NOTE | 2019-04-06 11:21 | PN ---
PROGRESS NOTE A 79-year-old lady with history of aortic valve replacement and mitral valve repair and paroxysmal atrial fibrillation. She is feeling much better. Has had a pericardial window, has had thoracenteses, chest tube placement. She is ready to be transferred to rehab. This morning, she remains in sinus rhythm. PHYSICAL EXAMINATION: On exam, vital signs are stable. Chest exam reveals diminished air entry at the bases. Heart exam reveals first and second heart sounds. No gallop. Has an ejection systolic murmur in the aortic area. Abdomen is soft. Examination of extremities did not reveal any edema. Peripheral pulses are felt. ASSESSMENT: 1. Status post aortic valve replacement. 2. Status post mitral valve repair. 3. Chronic atrial fibrillation. PLAN: Patient will continue with current medications. MMODL / IJN: [id number] /
--- NOTE | 2019-04-06 11:46 | P.PN ---
Subjective Progress Note Date: 04/06/19 Principal diagnosis: Severe aortic stenosis and regurgitation, moderate to severe mitral regurgitation, one-vessel coronary artery disease. This is a 79-year-old white female patient of Dr. Mati Vale, with a known history of aortic stenosis and regurgitation, hypertension, hyperlipidemia, hypothyroidism, moderate noncritical carotid artery stenosis, who was found to have significant decrease in LV function based on her echocardiogram in December 2018 with systolic/diastolic dysfunction. Recent underwent transesophageal echocardiogram on 02/05/2019 showing sclerotic and calcific aortic valve with severe aortic stenosis with area of the aortic valve calculated in the range of 1-1.1. There was moderate degree of mitral regurgitation, severely impaired left ventricle systolic function with estimated ejection fraction of 30%, and no evidence of thrombus in the left atrial appendage. Catheterization showed diffusely diseased LAD distally, RCA was dominant and disease free, circumflex had a 60-70% mid lesion. Yesterday on 03/19/2019 patient underwent aortic valve replacement with a #23 mm a villous hypostatic Med[employer] aortic valve, mitral valve repair with a #30 mm [employer] annular flex band, and single-vessel coronary artery bypass grafting with reverse SVG to the circumflex and ligation of the left atrial appendage with a #35 mm Atriclip. The patient is seen today 03/27/2019 in follow-up on the selective care unit. She is currently sitting up in a chair at the bedside. Awake and alert in no acute distress. She is currently maintaining good O2 saturations in the upper 90s on 2 L/m per nasal cannula. She's been afebrile. Hemodynamically stable. White count 14.5. Hemoglobin 7.6. Creatinine 1.83. AST 107. ALT 319. She is status post 6 units of packed red blood cells. She remains on amiodarone. Anticoagulated with Eliquis. Continued on bronchodilators. She is working well with the incentive spirometer. Needs increased encouragement. Today's chest x- ray was reviewed. No plans for thoracentesis at this point. The patient is seen today 03/28/2019 in follow-up on the selective care unit. Currently sitting up in a chair at the bedside. Awake and alert in no acute distress. Chest x-ray reveals cardiomegaly, possible interstitial edema with pulmonary venous hypertension. Some small basilar effusions/atelectasis. Somewhat more fatigued today as compared to yesterday. Pale. White count 14.8. Hemoglobin 7.4. Creatinine 2.06. AST 553. ALT 627. On 03/29/2019 the patient is looking slightly better. Breathing easier. Pulling approximately 1100 on the incentive spirometer. No cough or sputum production. We'll doing percussion and vibration to the right lower chest area. Remains in sinus rhythm. Off amiodarone. LFTs are improving. Creatinine is at 1.84 which is lower than yesterday. Sodium level is at 129. No new complaints otherwise for now. No chest pain. No palpitation. Hemoglobin stable at 8.0 On 03/30/2019 patient is still short of breath. Despite her being on room air oxygen, the patient is still struggling with her breathing and she short of breath. She is using incentive spirometer. A repeat echo cardiac exam was done and the patient was found to have moderate amount of pericardial effusion. Also, she is back to atrial fibrillation. LFTs are improving. The white cell count is at 16.8. Hemoglobin is at 8.5. Renal function shows a creatinine of 1.8. No other significant events overnight. The plan is for this patient to be ventilated by cardiac thoracic surgery in consultation for a cardiocentesis versus pericardial window. As for the right lung finding, the patient continues to diminished breath on the right lung base due to a combination of atelectasis/effusion. The echocardiogram showed an ejection fraction of 40-45%. The left ventricle was mildly dilated. There is mild to moderate impairment of the ejection fraction. On 03/31/2019 the patient is again postop. The patient underwent a pericardial window. The patient also underwent a right-sided chest tube insertion. The patient underwent cardioversion and operating room. There was a total of 700 mL of pleural fluid drained from the right lung and there was another 400 mL of pericardial effusion that was drained. Initially the patient had a successful cardioversion to sinus rhythm. After arriving to the ICU the patient went back into atrial fibrillation. The patient was given a bolus of amiodarone 150 mg and she'll be maintained on oral amiodarone. Chest tube is in place. Pericardial tube is in place. She is hemodynamically stable. She is not having any significant shortness of breath. Resting comfortably in bed. The LFTs are improving still. The creatinine is also improving is down to 1.7. No other significant events since the surgery and the patient is resting comfortably in bed. Chest x-ray was noted. On 04/01/2019 I'm seeing the patient for a follow-up. The patient intensive care unit. The pleural chest tube in the cardiac chest tube will be . The output from the chest tubes were noted. This patient is using the incentive spirometer. The patient is pulling up to thousand. Pulse ox is 94% on room air. Cardiac rhythm is still atrial fibrillation and the rate is controlled for now. The patient was given oral amiodarone. The patient had a lower blood pressure earlier this morning and the patient was given a bolus of normal saline. She is producing adequate amount of urine output. The chest tubes are all in place. There is no evidence of any air leak. Output is serosanguineous. No altered mentation. No other significant events overnight. The chest x-ray from today showed cardiomegaly and bibasilar infiltrates and small effusions. T here is also widening of the vascular pedicle this is related to vascular ectasia. Reevaluated today on 04/02/2019, patient remains in the ICU, quite comfortable, in no distress, doing extremely well with incentive spirometry. She is now postoperative day #14, aortic valve replacement and emergent reexploration of the chest with evacuation of clots and control of bleeding. Placement of intra-aortic balloon pump. Postoperative day #2 pericardial window placement of right pleural chest tube and synchronized cardioversion. Reevaluated today on 04/03/2019, patient is postoperative day #15, sitting at a bedside chair, remains in the ICU. Hemodynamically stable, not requiring any pressors or inotropes. Tolerating oral intake well, patient has O2 saturation about 94% on room air, and she is achieving 1000 mL with incentive spirometry. Had fairly good amount of serosanguineous drainage from her chest tube/right pleural, and it remains in place. Her subxiphoid chest tube was removed yest erday. Renal profile is slightly worse than yesterday, creatinine is up to 1.6. Reevaluated today on 04/04/2019, remains in the intensive care unit, continues to have chest tube in place, significant amount of drainage noted over the last 24 hours roughly 400 mL of output noted. Patient had significant amount of urine output in the last 24 hours, responded to Lasix which was given 2. She is he modynamically stable, not requiring any inotropic or pressors support. Symbicort was discontinued because of steroids induced dysphonia. Hemoglobin today is 8.5, BUN is 63 creatinine is 1.58, improving compared to yesterday. Patient was reevaluated today on 04/05/2019, patient is doing great, feeling much better, her right-sided chest tube was removed, she is on room air, and in no distress. She is hemodynamically stable, not requiring any inotropes or pressors. Chest x-ray was reviewed, there is evidence of left basilar atelectasis and small effusion. There is also evidence of cardiomegaly. Labs were reviewed, electrolytes are normal BUN is 52 creatinine is 1.58. Basically unchanged compared to yesterday. The patient is seen today 04/06/2018 in follow-up on the selective care unit. She is currently sitting up in a chair at the bedside. She is awake and alert in no acute distress. She is feeling quite a bit better. She is maintaining good O2 saturations in the 90s on room air. She's been hemodynamically stable. She's afebrile. White count 9.7. Hemoglobin 9.1. Creatinine 1.56. Chest x- ray showed stable bilateral infiltrates with small effusion. She did receive a dose of Lasix 40 mg IVP 1 today. Objective - Vital Signs Vital signs: Vital Signs Temp 97.8 F 04/06/19 08:05 Pulse 87 04/06/19 08:05 Resp 18 04/06/19 08:05 BP 112/57 04/06/19 08:05 Pulse Ox 98 04/06/19 08:05 Intake & Output 04/05/19 04/06/19 04/06/19 18:59 06:59 18:59 Intake Total 120 120 0 Output Total 950 1 Balance -830 119 0 Weight 114.5 kg 110.4 kg Intake: Oral 120 120 0 Output: Chest Tube Drainage 50 Right Pleural 50 Urine 900 1 Other: Voiding Method Bedside Commode Bedside Commode # Voids 1 # Bowel Movements 1 ABP, PAP, CO, CI - Last Documented Arterial Blood Pressure 102/67 Pulmonary Artery Pressure 38/16 Cardiac Output 4.7 Cardiac Index 2.1 - Exam GENERAL EXAM: Alert, oriented 79-year-old white female patient, on room air, no acute distress. HEAD: Normocephalic/atraumatic. EYES: Normal reaction of pupils, equal size. Conjunctiva pink, sclera white. NOSE: Clear with pink turbinates. THROAT: No erythema or exudates. NECK: No masses, no JVD, no thyroid enlargement, no adenopathy. CHEST: No chest wall deformity. Symmetrical expansion. Midsternal incision is clean dry and intact, covered with surgical dressing. LUNGS: Equal air entry with faint basilar crackles CVS: Regular rate and rhythm, normal S1 and S2, no gallops, no murmurs, no rubs ABDOMEN: Soft, nontender. No hepatosplenomegaly, normal bowel sounds, no guarding or rigidity. EXTREMITIES: No clubbing, no edema, no cyanosis, 2+ pulses and upper and lower extremities. MUSCULOSKELETAL: Muscle strength and tone normal. SPINE: No scoliosis or deformity SKIN: No rashes CENTRAL NERVOUS SYSTEM: Awake, and alert, oriented times three. No focal deficits, tone is normal in all 4 extremities. - Labs CBC & Chem 7: 04/06/19 06:14 04/06/19 06:14 Labs: Abnormal Lab Results - Last 24 Hours (Table) 04/05/19 04/05/19 04/05/19 Range/Units 12:02 17:03 21:00 RBC (3.80-5.40) m/uL Hgb (11.4-16.0) gm/dL Hct (34.0-46.0) % MCHC (31.0-37.0) g/dL RDW (11.5-15.5) % Carbon Dioxide (22-30) mmol/L BUN (7-17) mg/dL Creatinine (0.52-1.04) mg/dL POC Glucose (mg/dL) 107 H 105 H 150 H (75-99) mg/dL 04/06/19 04/06/19 04/06/19 Range/Units 02:06 06:14 06:14 RBC 3.05 L (3.80-5.40) m/uL Hgb 9.1 L (11.4-16.0) gm/dL Hct 30.3 L (34.0-46.0) % MCHC 30.2 L (31.0-37.0) g/dL RDW 17.8 H (11.5-15.5) % Carbon Dioxide 33 H (22-30) mmol/L BUN 47 H (7-17) mg/dL Creatinine 1.56 H (0.52-1.04) mg/dL POC Glucose (mg/dL) 122 H (75-99) mg/dL 04/06/19 Range/Units 06:19 RBC (3.80-5.40) m/uL Hgb (11.4-16.0) gm/dL Hct (34.0-46.0) % MCHC (31.0-37.0) g/dL RDW (11.5-15.5) % Carbon Dioxide (22-30) mmol/L BUN (7-17) mg/dL Creatinine (0.52-1.04) mg/dL POC Glucose (mg/dL) 102 H (75-99) mg/dL Assessment and Plan Assessment: Assessment: #1. Severe aortic valve stenosis, and moderate to severe mitral valve regurgitation, and coronary artery disease status post aortic valve replacement with a bioprosthetic valve, mitral valve repair with the annual flex band, and single vessel bypass grafting with reverse SVG off of the aorta to the circumflex artery and left atrial appendage exclusion with the ATriclip, #2. Postoperative bleeding, status post emergent reexploration of the chest and evacuation of clot and control of bleeding #3. Acute blood loss anemia related to the above, status post transfusion with 6 units of RBCs, 5 units of cryoprecipitate, 3 units of rest frozen plasma, and 2 units of platelets #4. Pericardial effusion, status post pericardial window. #5. Secondary pulmonary hypertension #6. Ischemic cardiomyopathy #7. Hypertension #8. Hyperlipidemia #9. Hypothyroidism Plan: The patient was seen and evaluated by Dr. Khan. Chest x-ray and labs reviewed. Received a dose of IV Lasix today. She is stable from the pulmonary standpoint. Continues to work well with the incentive spirometer. The plan is for transfer to [facility] for inpatient rehabilitation with Dr. Nichole. We could follow her there if needed. I, the cosigning physician, performed a history & physical examination of the patient. Lungs sounds faint basilar crackles. Maintaining good O2 saturations in the 90s on room air. I discussed the assessment and plan of care with my nurse practitioner, Ariella Betancourt. I attest to the above note as dictated by her.
[2019-04-06 11:53] LABS: Glucose,Whole Blood 97 mg/dL (75-99)
[2019-04-06] MEDS ORDERED: LISINOPRIL 2.5 MG TAB PO SCH (12:00)
[2019-04-06 12:44] VITALS: BP 106/56; PULSE 68; TEMP 98.1
--- NOTE | 2019-04-06 15:49 | PN ---
PROGRESS NOTE Patient is seen for followup for acute kidney injury. She is currently doing well. Patient denies any significant complaints. She has been receiving IV Lasix on a daily basis. Patient has significant edema; however, she denies significant shortness of breath. On examination this morning, blood pressure was 112/57, heart rate of 87 per minute. She is afebrile. EXAMINATION OF THE HEART: S1 and S2. EXAMINATION OF LUNGS: Bilateral breath sounds are heard. Decreased breath sounds at the bases. ABDOMEN: Soft, non-tender. Examination of lower extremities shows edema 2+ bilaterally. B[employer]ER exam is grossly intact. Labs show sodium 137, potassium 3.7, hemoglobin 9.1, serum creatinine 1.56, calcium 8.8. ASSESSMENT: 1. Acute kidney injury, nonoliguric. Renal function is stable, serum creatinine staying about 1.5 mg/dL, which is at her baseline for CKD. 2. Volume overload, maintained on IV Lasix on a daily basis. Patient should be maintained on 40 mg b.i.d. upon discharge. 3. Status post coronary artery bypass surgery, mitral valve repair and aortic valve replacement. 4. Congestive heart failure, systolic, with ejection fraction 40% to 45%. 5. Chronic kidney disease, stage III, baseline creatinine 1.1 to 1.5, secondary to nephrosclerosis and cardiorenal syndrome. PLAN: Continue to diurese the patient upon discharge. Maintain Lasix 40 mg b.i.d. post discharge. MMODL / IJN: [id number] /
== END 2019-04-06 15:47 | DRG 219 ==
LOC: 2ORMAIN 05:56 → 2SICU 14:33 → 3SCARD 03-26 01:53 → 2SICU 03-31 10:08 → 3SCARD 04-05 16:56
PROVIDERS: ADMIT Thoracic Surgery (Cardiothoracic Vascular Surgery); ATTEND Thoracic Surgery (Cardiothoracic Vascular Surgery)
PROC: 0W3C0ZZ Control Bleeding in Mediastinum, Open Approach (ICD-10-PCS; 2019-03-19)
PROC: 5A1221Z Performance of Cardiac Output, Continuous (ICD-10-PCS; 2019-03-19)
PROC: B246ZZ4 Ultrasonography of Right and Left Heart, Transesophageal (ICD-10-PCS; 2019-03-19)
PROC: 02L70CK Occlusion of Left Atrial Appendage with Extraluminal Device, Open Approach (ICD-10-PCS; 2019-03-19)
PROC: B246ZZ4 Ultrasonography of Right and Left Heart, Transesophageal (ICD-10-PCS; 2019-03-19)
PROC: 0D9670Z Drainage of Stomach with Drainage Device, Via Natural or Artificial Opening (ICD-10-PCS; 2019-03-19)
PROC: 30243K1 Transfusion of Nonautologous Frozen Plasma into Central Vein, Percutaneous Approach (ICD-10-PCS; 2019-03-19)
PROC: 30243N1 Transfusion of Nonautologous Red Blood Cells into Central Vein, Percutaneous Approach (ICD-10-PCS; 2019-03-19)
PROC: 30243R1 Transfusion of Nonautologous Platelets into Central Vein, Percutaneous Approach (ICD-10-PCS; 2019-03-19)
PROC: 05HM33Z Insertion of Infusion Device into Right Internal Jugular Vein, Percutaneous Approach (ICD-10-PCS; 2019-03-19)
PROC: 02HQ32Z Insertion of Monitoring Device into Right Pulmonary Artery, Percutaneous Approach (ICD-10-PCS; 2019-03-19)
PROC: 4A133B3 Monitoring of Arterial Pressure, Pulmonary, Percutaneous Approach (ICD-10-PCS; 2019-03-19)
PROC: 4A1239Z Monitoring of Cardiac Output, Percutaneous Approach (ICD-10-PCS; 2019-03-19)
PROC: 02RF08Z Replacement of Aortic Valve with Zooplastic Tissue, Open Approach (ICD-10-PCS; principal; 2019-03-19 08:00)
PROC: 021009W Bypass Coronary Artery, One Artery from Aorta with Autologous Venous Tissue, Open Approach (ICD-10-PCS; 2019-03-19 08:00)
PROC: 06BQ4ZZ Excision of Left Saphenous Vein, Percutaneous Endoscopic Approach (ICD-10-PCS; 2019-03-19 08:00)
PROC: 02UG0JZ Supplement Mitral Valve with Synthetic Substitute, Open Approach (ICD-10-PCS; 2019-03-19 08:00)
PROC: 5A02210 Assistance with Cardiac Output using Balloon Pump, Continuous (ICD-10-PCS; 2019-03-19 08:00)
PROC: 05HF33Z Insertion of Infusion Device into Left Cephalic Vein, Percutaneous Approach (ICD-10-PCS; 2019-03-22)
PROC: 0W9D00Z Drainage of Pericardial Cavity with Drainage Device, Open Approach (ICD-10-PCS; 2019-03-31)
PROC: 0W9930Z Drainage of Right Pleural Cavity with Drainage Device, Percutaneous Approach (ICD-10-PCS; 2019-03-31)
PROC: 5A2204Z Restoration of Cardiac Rhythm, Single (ICD-10-PCS; 2019-03-31)
DX: I08.0 Rheumatic disorders of both mitral and aortic valves (principal); T81.19XA Other postprocedural shock, initial encounter; N17.0 Acute kidney failure with tubular necrosis; I13.0 Hypertensive heart and chronic kidney disease with heart failure and stage 1 through stage 4 chronic kidney disease, or unspecified chronic kidney disease; I50.22 Chronic systolic (congestive) heart failure; E87.3 Alkalosis; I31.3 Pericardial effusion (noninflammatory); E87.1 Hypo-osmolality and hyponatremia; J98.11 Atelectasis; D62 Acute posthemorrhagic anemia; I97.618 Postprocedural hemorrhage of a circulatory system organ or structure following other circulatory system procedure; J90 Pleural effusion, not elsewhere classified; I47.2 Ventricular tachycardia; I95.81 Postprocedural hypotension; E87.70 Fluid overload, unspecified; D69.6 Thrombocytopenia, unspecified; E66.01 Morbid (severe) obesity due to excess calories; I27.29 Other secondary pulmonary hypertension; I48.0 Paroxysmal atrial fibrillation; I48.2 Chronic atrial fibrillation; I25.5 Ischemic cardiomyopathy; I65.21 Occlusion and stenosis of right carotid artery; Z68.34 Body mass index [BMI] 34.0-34.9, adult; N18.3 Chronic kidney disease, stage 3 (moderate); R06.03 Acute respiratory distress; I25.10 Atherosclerotic heart disease of native coronary artery without angina pectoris; I44.7 Left bundle-branch block, unspecified; T46.2X5A Adverse effect of other antidysrhythmic drugs, initial encounter; T50.2X5A Adverse effect of carbonic-anhydrase inhibitors, benzothiadiazides and other diuretics, initial encounter; K59.00 Constipation, unspecified; I71.9 Aortic aneurysm of unspecified site, without rupture; D72.829 Elevated white blood cell count, unspecified; E03.9 Hypothyroidism, unspecified; M19.90 Unspecified osteoarthritis, unspecified site; K21.9 Gastro-esophageal reflux disease without esophagitis; E78.5 Hyperlipidemia, unspecified; H40.9 Unspecified glaucoma; R74.0 Nonspecific elevation of levels of transaminase and lactic acid dehydrogenase [LDH]; Z79.82 Long term (current) use of aspirin; Z79.890 Hormone replacement therapy; Z79.899 Other long term (current) drug therapy; Z71.3 Dietary counseling and surveillance; Z96.651 Presence of right artificial knee joint; Z87.891 Personal history of nicotine dependence; Z98.890 Other specified postprocedural states; Z98.42 Cataract extraction status, left eye; Z98.41 Cataract extraction status, right eye; Z96.1 Presence of intraocular lens; Y83.2 Surgical operation with anastomosis, bypass or graft as the cause of abnormal reaction of the patient, or of later complication, without mention of misadventure at the time of the procedure; Z91.018 Allergy to other foods
CPT/HCPCS: 36410; 36430; 71045; 71046; 71250; 76770; 76937; 80048; 80053; 81003; 82150; 82330; 82728; 82805; 83540; 83550; 83605; 83690; 83735; 84100; 84132; 84443; 84450; 84460; 85025; 85027; 85384; 85520; 85610; 85730; 86022; 86850; 86891; 86900; 86901; 86920; 88305; 88311; 93306; 93308; 94002; 94003; 94640; 94667; 94668; 94760

== ENCOUNTER → 2019-04-30 | Outpatient (CLI) | payer MEDICARE ==
[2019-04-30 17:17] LABS: HCT 31.2 % (34.0-46.0); HGB 10.1 gm/dL (11.4-16.0); Hypochromasia Slight; MCH 30.9 pg (25.0-35.0); MCHC 32.5 g/dL (31.0-37.0); Mean Platelet Volume 6.9; Platelet Count 157 k/uL (150-450); RBC 3.28 m/uL (3.80-5.40); RDW 15.7 % (11.5-15.5)
[2019-04-30 23:46] LABS: African American GFR (CKD) 32.9 (60.0-200.0); Anion Gap 8.5 mmol/L (4.00-12.00); BUN/Creat Ratio 18.24 Ratio (12.00-20.00); Calcium 9.5 mg/dL (8.7-10.3); Carbon Dioxide 30.5 mmol/L (21.6-31.8); Potassium 4.4 mmol/L (3.5-5.5)
== END | disposition home or self-care (01) ==
LOC: LABWHC1 15:48
PROVIDERS: ATTEND Internal Medicine Interventional Cardiology
DX: I10 Essential (primary) hypertension (principal); I25.10 Atherosclerotic heart disease of native coronary artery without angina pectoris
CPT/HCPCS: 36415; 80048; 85027

== ENCOUNTER → 2019-05-21 | Outpatient (CLI) | payer MEDICARE ==
[2019-05-21 19:19] LABS: African American GFR (CKD) 22.8 (60.0-200.0); Anion Gap 7.9 mmol/L (4.00-12.00); BUN/Creat Ratio 15.65 Ratio (12.00-20.00); Calcium 9.7 mg/dL (8.7-10.3); Carbon Dioxide 28.1 mmol/L (21.6-31.8); Potassium 4.5 mmol/L (3.5-5.5)
== END | disposition home or self-care (01) ==
LOC: LABWHC1 12:55
PROVIDERS: ATTEND Nurse Practitioner
DX: I35.9 Nonrheumatic aortic valve disorder, unspecified (principal)
CPT/HCPCS: 36415; 80048; 83735

== ENCOUNTER → 2019-06-05 | Outpatient (CLI) | payer MEDICARE ==
[2019-06-05 14:18] LABS: HGB 10.8 gm/dL (11.4-16.0); MCH 30.4 pg (25.0-35.0); MCHC 33.9 g/dL (31.0-37.0); Mean Platelet Volume 5.9; Platelet Count 175 k/uL (150-450); RBC 3.57 m/uL (3.80-5.40); RDW 14.8 % (11.5-15.5); WBC 9.1 k/uL (3.8-10.6)
[2019-06-05 14:22] LABS: MCV 89.6 fL (80.0-100.0)
[2019-06-05 19:07] LABS: African American GFR (CKD) 25.5 (60.0-200.0); Anion Gap 8.7 mmol/L (4.00-12.00); BUN/Creat Ratio 17.62 Ratio (12.00-20.00); Calcium 9.6 mg/dL (8.7-10.3); Carbon Dioxide 30.3 mmol/L (21.6-31.8); Potassium 4.7 mmol/L (3.5-5.5)
== END | disposition home or self-care (01) ==
LOC: LABWHC1 12:24
PROVIDERS: ATTEND Internal Medicine Interventional Cardiology
DX: I50.9 Heart failure, unspecified (principal)
CPT/HCPCS: 36415; 80048; 85027

== ENCOUNTER → 2020-01-17 | Outpatient (CLI) | payer MEDICARE ==
[2020-01-17 11:46] LABS: Appearance,Urine Clear (Clear); Bilirubin,Urine Negative (Negative); Blood,Urine Negative (Negative); Color,Urine Light Yellow; Glucose,Urine (UA) Negative (Negative); Ketones,Urine Negative (Negative); Leukocyte Esterase,Urine Negative (Negative); Nitrite,Urine Negative (Negative); Protein,Urine Negative (Negative); Specific Gravity,Urine 1.005 (1.001-1.035); Urobilinogen,Urine <2.0 mg/dL (<2.0)
[2020-01-17 11:53] LABS: HCT 40.4 % (34.0-46.0); HGB 12.5 gm/dL (11.4-16.0); MCH 28.3 pg (25.0-35.0); MCHC 30.8 g/dL (31.0-37.0); MCV 91.8 fL (80.0-100.0); Mean Platelet Volume 7.2; Platelet Count 168 k/uL (150-450); RDW 13.7 % (11.5-15.5); WBC 9.5 k/uL (3.8-10.6)
[2020-01-17 20:01] LABS: % Iron Saturation 22.34 (12.00-45.00); Uric Acid 6.7 mg/dL (2.9-7.7)
[2020-01-17 20:02] LABS: African American GFR (CKD) 30.7 (60.0-200.0); Albumin 4.2 g/dL (3.80-4.90); Albumin/Globulin Ratio 2.1 (1.60-3.17); Anion Gap 10.4 mmol/L (4.00-12.00); Calcium 10.1 mg/dL (8.7-10.3); Carbon Dioxide 25.6 mmol/L (21.6-31.8); Non-African American GFR(CKD) 26.5 (60.0-200.0); Phosphorus 3.5 mg/dL (2.4-5.1); Potassium 5.4 mmol/L (3.5-5.5); Total Bilirubin 0.7 mg/dL (0.3-1.2); Total Protein 6.2 g/dL (6.2-8.2)
[2020-01-17 20:09] LABS: Ferritin 64.4 ng/mL (10.0-291.0)
== END | disposition home or self-care (01) ==
LOC: LABWHC1 10:53
PROVIDERS: ATTEND Nurse Practitioner Family
DX: N17.9 Acute kidney failure, unspecified (principal); D64.9 Anemia, unspecified; N39.0 Urinary tract infection, site not specified; N25.81 Secondary hyperparathyroidism of renal origin; E55.9 Vitamin D deficiency, unspecified; M10.9 Gout, unspecified
CPT/HCPCS: 36415; 80053; 81003; 82306; 82728; 83540; 83550; 83735; 83970; 84100; 84550; 85027

== ENCOUNTER → 2020-03-03 | Outpatient (CLI) | payer MEDICARE ==
--- NOTE | 2020-03-04 10:22 | MM ---
Reason for exam: screening (asymptomatic). Last mammogram was performed 1 year and 2 months ago. History: Patient is postmenopausal. Benign stereotactic core biopsy of the left breast, January 21, 2000. Core biopsy of the left breast. Physical Findings: A clinical breast exam by your physician is recommended on an annual basis and results should be correlated with mammographic findings. MG 3D Screening Mammo W/Cad Bilateral CC, MLO, and XCCL view(s) were taken. Prior study comparison: January 08, 2019, bilateral MG 3d screening mammo w/cad. September 26, 2017, bilateral MG screening mammo w CAD. There are scattered fibroglandular densities. A few tiny benign oil cyst calcifications. No significant changes when compared with prior studies. ASSESSMENT: Negative, BI-RAD 1 RECOMMENDATION: Routine screening mammogram of both breasts in 1 year.
== END | disposition home or self-care (01) ==
LOC: RADMAMWWP 12:28
PROVIDERS: ATTEND Family Medicine
DX: Z12.31 Encounter for screening mammogram for malignant neoplasm of breast (principal)
CPT/HCPCS: 77063; 77067

== ENCOUNTER → 2020-04-24 | Outpatient (CLI) | payer MEDICARE ==
[2020-04-24 12:36] LABS: Appearance,Urine Clear (Clear); Bilirubin,Urine Negative (Negative); Blood,Urine Negative (Negative); Color,Urine Light Yellow; Glucose,Urine (UA) Negative (Negative); Ketones,Urine Negative (Negative); Leukocyte Esterase,Urine Negative (Negative); Nitrite,Urine Negative (Negative); Protein,Urine Negative (Negative); Specific Gravity,Urine 1.005 (1.001-1.035); Urobilinogen,Urine <2.0 mg/dL (<2.0)
[2020-04-24 12:42] LABS: HCT 40.7 % (34.0-46.0); MCHC 31.9 g/dL (31.0-37.0); MCV 91.1 fL (80.0-100.0); Platelet Count 178 k/uL (150-450); RBC 4.47 m/uL (3.80-5.40); RDW 13.8 % (11.5-15.5); WBC 9.9 k/uL (3.8-10.6)
[2020-04-24 18:39] LABS: % Iron Saturation 19.93 (12.00-45.00); African American GFR (CKD) 35.2 (60.0-200.0); Albumin 4.2 g/dL (3.80-4.90); Albumin/Globulin Ratio 2.1 (1.60-3.17); Anion Gap 5.7 mmol/L (4.00-12.00); BUN/Creat Ratio 19.38 Ratio (12.00-20.00); Calcium 9.8 mg/dL (8.7-10.3); Carbon Dioxide 26.3 mmol/L (21.6-31.8); Non-African American GFR(CKD) 30.3 (60.0-200.0); Phosphorus 3.5 mg/dL (2.4-5.1); Potassium 5.2 mmol/L (3.5-5.5); Total Bilirubin 0.5 mg/dL (0.2-1.2); Total Protein 6.2 g/dL (6.2-8.2); Uric Acid 6.5 mg/dL (2.9-7.7)
[2020-04-24 18:48] LABS: Ferritin 57.8 ng/mL (10.0-291.0)
== END | disposition home or self-care (01) ==
LOC: LABWHC1 11:28
PROVIDERS: ATTEND Internal Medicine
DX: N39.0 Urinary tract infection, site not specified (principal); E21.3 Hyperparathyroidism, unspecified; E55.9 Vitamin D deficiency, unspecified; M10.9 Gout, unspecified; N18.3 Chronic kidney disease, stage 3 (moderate); D63.1 Anemia in chronic kidney disease
CPT/HCPCS: 36415; 80053; 81003; 82306; 82728; 83540; 83550; 83735; 83970; 84100; 84550; 85027

== ENCOUNTER → 2021-06-24 | Outpatient (CLI) | payer MEDICARE ==
--- NOTE | 2021-06-25 09:57 | MM ---
Reason for exam: screening (asymptomatic). Last mammogram was performed 1 year and 4 months ago. History: Patient is postmenopausal. Benign stereotactic core biopsy of the left breast, January 21, 2000. Core biopsy of the left breast. Physical Findings: A clinical breast exam by your physician is recommended on an annual basis and results should be correlated with mammographic findings. MG 3D Screening Mammo W/Cad Bilateral CC and MLO view(s) were taken. Prior study comparison: March 03, 2020, bilateral MG 3d screening mammo w/cad. January 08, 2019, bilateral MG 3d screening mammo w/cad. The breast tissue is heterogeneously dense. This may lower the sensitivity of mammography. Stable benign calcifications. There is no discrete abnormality. No significant changes when compared with prior studies. ASSESSMENT: Benign, BI-RAD 2 RECOMMENDATION: Routine screening mammogram of both breasts in 1 year.
== END | disposition home or self-care (01) ==
LOC: RADMAMWWP 09:24
PROVIDERS: ATTEND Family Medicine
DX: Z12.31 Encounter for screening mammogram for malignant neoplasm of breast (principal)
CPT/HCPCS: 77063; 77067

== ENCOUNTER → 2022-07-26 | Outpatient (CLI) | payer MEDICARE ==
[2022-07-26 16:01] LABS: HCT 39.9 % (37.2-46.3); MCH 30.4 pg (27.0-32.0); MCHC 32.6 g/dL (32.0-37.0); MCV 93.4 fL (80.0-97.0); Mean Platelet Volume 10.3 fL (9.5-12.2); NRBC Per 100 WBC 0 /100 WBCS (0.0-0.0); Platelet Count 157 X 10*3/uL (140-440); RBC 4.27 X 10*6/uL (4.10-5.20); WBC 9.22 X 10*3/uL (4.50-10.00)
[2022-07-26 16:39] LABS: Phosphorus 3.7 mg/dL (2.4-5.1); Uric Acid 6.3 mg/dL (2.9-7.7)
[2022-07-26 16:40] LABS: % Iron Saturation 21.26 (12.00-45.00); African American GFR (CKD) 30.1 (60.0-200.0); Albumin 4.3 g/dL (3.8-4.9); Albumin/Globulin Ratio 1.8 (1.60-3.17); Anion Gap 12.5 mmol/L (10.00-18.00); BUN/Creat Ratio 17.5 Ratio (12.00-20.00); Blood Urea Nitrogen 31.5 mg/dL (9.0-27.0); Calcium 9.5 mg/dL (8.7-10.3); Carbon Dioxide 25.2 mmol/L (20.0-27.5); Globulin 2.4 g/dL (1.6-3.3); Non-African American GFR(CKD) 25.9 (60.0-200.0); Potassium 4.7 mmol/L (3.5-5.5); Total Bilirubin 0.6 mg/dL (0.30-1.20); Total Protein 6.7 g/dL (6.2-8.2)
[2022-07-26 19:08] LABS: Appearance,Urine Clear (Clear); Bilirubin,Urine Negative (Negative); Blood,Urine Negative (Negative); Color,Urine Yellow (Yellow); Ketones,Urine Negative (Negative); Nitrite,Urine Negative (Negative); PH, Urine 6.5 (5.0-8.0); Urobilinogen,Urine 0.2 (0.2,1.0)
[2022-07-26 19:14] LABS: Bacteria,Urine None Seen /HPF (None Seen)
[2022-07-26 22:21] LABS: Urine Creatinine 61.3 mg/dL (28.0-217.0)
== END | disposition home or self-care (01) ==
LOC: LABWHC1 10:54
PROVIDERS: ATTEND Nurse Practitioner Family
DX: M10.9 Gout, unspecified (principal); N18.4 Chronic kidney disease, stage 4 (severe); D63.1 Anemia in chronic kidney disease; N39.0 Urinary tract infection, site not specified; E55.9 Vitamin D deficiency, unspecified; E21.3 Hyperparathyroidism, unspecified
CPT/HCPCS: 36415; 80053; 81001; 82043; 82306; 82570; 82728; 83540; 83550; 83735; 83970; 84100; 84550; 85027

== ENCOUNTER → 2022-08-12 | Outpatient (CLI) | payer MEDICARE ==
[2022-08-12 20:29] LABS: African American GFR (CKD) 32.2 (60.0-200.0); Albumin 4.3 g/dL (3.8-4.9); Albumin/Globulin Ratio 2.05 (1.60-3.17); Anion Gap 13.6 mmol/L (10.00-18.00); Blood Urea Nitrogen 32.3 mg/dL (9.0-27.0); Calcium 9.9 mg/dL (8.7-10.3); Carbon Dioxide 24.4 mmol/L (20.0-27.5); Globulin 2.1 g/dL (1.6-3.3); Non-African American GFR(CKD) 27.8 (60.0-200.0); Potassium 5.1 mmol/L (3.5-5.5); Total Bilirubin 0.5 mg/dL (0.30-1.20); Total Protein 6.4 g/dL (6.2-8.2)
[2022-08-13 11:47] LABS: Free Kappa Lt Chain Qnt, Serum 3.33 mg/dL (0.33-1.94); Free Lambda Lt Chain Qnt, Seru 1.72 mg/dL (0.57-2.63)
== END | disposition home or self-care (01) ==
LOC: LABWHC1 11:01
PROVIDERS: ATTEND Nurse Practitioner Family
DX: N18.4 Chronic kidney disease, stage 4 (severe) (principal)
CPT/HCPCS: 36415; 80053; 83883; 86334

== ENCOUNTER → 2022-12-16 | Outpatient (CLI) | payer MEDICARE ==
--- NOTE | 2022-12-16 11:47 | XR ---
EXAMINATION TYPE: XR bone survey complete DATE OF EXAM: 12/16/2022 COMPARISON: NONE HISTORY: Monoclonal gammopathy FINDINGS: Postoperative changes are seen with a diffuse interstitial pattern and subsegmental left basilar cons olidation. Sclerotic lesion involving the right humerus likely related to bone island. Arthropathy of the shoulders. Bony calvarium : 2 views of the bony calvarium demonstrate. Calvarium appears intact. No definite os seous lesion. Spine: Two views of the cervical, thoracic and lumbar spines are submitted. Multilevel hypertrophic changes of the facets throughout the visualized vertebral column and multilevel degenerative disc dis ease with severe changes at C5-C6 and throughout the mid and lower thoracic spine. There is a multile axel moderate to severe degenerative disc disease in the lumbar spine with numerous chronic appearing superior endplate compression fractures most notable at L4, L3, and L1. No definite osseous lesions. PELVIS: Single view of the pelvis demonstrates. A vascular calcification of the aorta noted. Hypertr ophic arthropathy of the hip joints and degenerative change of the spine. There is diffuse osteopenia . No definite osseous lesions identified. Calcifications in the pelvis likely vascular. UPPER EXTREMITIES: Two views of the upper extremities. AC joint arthropathy bilaterally. Calcificatio n the right axilla likely related to calcified lymph node. No osseous lesions of the upper extremitie s. LOWER EXTREMITIES: 2 views of the lower extremities. There is bilateral hip hypertrophic arthropathy and findings suggestive of femoral acetabular impingement. Diffuse osteopenia. There is severe arthr opathy of the left knee joint. Surgical clips seen in the soft tissues of the left knee. Postsurgical change involving the right knee. There are no osseous lesions of the lower extremities. IMPRESSION: 1. No definite osseous lesions identified.
== END | disposition home or self-care (01) ==
LOC: RADXRMAIN 10:00
PROVIDERS: ATTEND Internal Medicine Hematology & Oncology
DX: D47.2 Monoclonal gammopathy (principal); E78.5 Hyperlipidemia, unspecified; I10 Essential (primary) hypertension
CPT/HCPCS: 77075

== ENCOUNTER → 2023-01-21 | Outpatient (CLI) | payer MEDICARE ==
[2023-01-21 15:23] LABS: Basophils # (A) 0.06 X 10*3/uL (0.00-0.10); Basophils % (A) 0.6 %; Eosinophils # (A) 0.22 X 10*3/uL (0.04-0.35); Eosinophils % (A) 2.3 %; HCT 37.3 % (37.2-46.3); HGB 12.1 g/dL (12.0-15.0); Immature Grans, Automated 0.3 %; Lymphocytes % (A) 18.9 %; MCH 30.4 pg (27.0-32.0); MCHC 32.4 g/dL (32.0-37.0); MCV 93.7 fL (80.0-97.0); Mean Platelet Volume 9.5 fL (9.5-12.2); Monocytes # (A) 0.96 X 10*3/uL (0.20-1.00); Monocytes % (A) 10.1 %; NRBC Per 100 WBC 0 /100 WBCS (0.0-0.0); Neutrophils # (A) 6.43 X 10*3/uL (1.80-7.70); Neutrophils % (A) 67.8 %; Platelet Count 161 X 10*3/uL (140-440); RBC 3.98 X 10*6/uL (4.10-5.20); RDW 12.9 % (11.5-14.5)
[2023-01-21 16:20] LABS: % Iron Saturation 18.22 (12.00-45.00); African American GFR (CKD) 28.2 (60.0-200.0); Albumin 4.1 g/dL (3.8-4.9); Albumin/Globulin Ratio 2.05 (1.60-3.17); Anion Gap 8.5 mmol/L (10.00-18.00); BUN/Creat Ratio 20.47 Ratio (12.00-20.00); Blood Urea Nitrogen 38.9 mg/dL (9.0-27.0); Calcium 10.3 mg/dL (8.7-10.3); Carbon Dioxide 29.5 mmol/L (20.0-27.5); Non-African American GFR(CKD) 24.3 (60.0-200.0); Phosphorus 3.5 mg/dL (2.4-5.1); Potassium 5.3 mmol/L (3.5-5.5); Total Bilirubin 0.5 mg/dL (0.30-1.20); Total Protein 6.1 g/dL (6.2-8.2)
[2023-01-21 23:16] LABS: Appearance,Urine Clear (Clear); Bilirubin,Urine Negative (Negative); Blood,Urine Negative (Negative); Color,Urine Yellow (Yellow); Ketones,Urine Negative (Negative); Nitrite,Urine Negative (Negative); Specific Gravity,Urine 1.011 (1.001-1.030); Urobilinogen,Urine 0.2 (0.2,1.0)
[2023-01-21 23:20] LABS: Bacteria,Urine None Seen /HPF (None Seen)
== END | disposition home or self-care (01) ==
LOC: LABWHC1 10:39
PROVIDERS: ATTEND Nurse Practitioner Family
DX: N25.81 Secondary hyperparathyroidism of renal origin (principal); N18.4 Chronic kidney disease, stage 4 (severe); D63.1 Anemia in chronic kidney disease; N39.0 Urinary tract infection, site not specified; E55.9 Vitamin D deficiency, unspecified; M10.9 Gout, unspecified
CPT/HCPCS: 36415; 80053; 81001; 82043; 82306; 82570; 82728; 83540; 83550; 83735; 83970; 84100; 85025

== ENCOUNTER → 2023-04-19 | Outpatient (CLI) | payer MEDICARE ==
[2023-04-19 14:40] LABS: Appearance,Urine Clear (Clear); Bilirubin,Urine Negative (Negative); Blood,Urine Negative (Negative); Color,Urine Yellow (Yellow); Ketones,Urine Negative (Negative); Nitrite,Urine Negative (Negative); PH, Urine 7.5; Specific Gravity,Urine 1.013 (1.001-1.030); Urobilinogen,Urine 0.2 E.U./DL
[2023-04-19 14:45] LABS: Bacteria,Urine None Seen (None Seen)
[2023-04-19 14:59] LABS: Basophils # (A) 0.05 X 10*3/uL (0.00-0.10); Basophils % (A) 0.6 %; Eosinophils # (A) 0.16 X 10*3/uL (0.04-0.35); Eosinophils % (A) 1.9 %; HCT 41.6 % (37.2-46.3); HGB 13.6 d/dL (12.0-15.0); Lymphocytes # (A) 1.65 X 10*3/uL (0.90-5.00); Lymphocytes % (A) 19.6 %; MCH 30.1 pg (27.0-32.0); MCHC 32.7 d/dL (32.0-37.0); Mean Platelet Volume 9.7 FL (9.5-12.2); Monocytes # (A) 0.79 X 10*3/uL (0.20-1.00); Monocytes % (A) 9.4 %; NRBC Per 100 WBC 0 X 10*3/uL (0.00-0.01); Neutrophils # (A) 5.71 X 10*3/uL (1.80-7.70); Neutrophils % (A) 67.9 %; Platelet Count 167 X 10*3/uL (140-440); RBC 4.52 X 10*6/uL (4.10-5.20); RDW 12.8 % (11.5-14.5); WBC 8.41 X 10*3/uL (4.50-10.00)
[2023-04-19 15:27] LABS: % Iron Saturation 22.83 (12.00-45.00); ALT 14 U/L (8-44); AST 25 U/L (13-35); Albumin 4.4 d/dL (3.8-4.9); Alkaline Phosphatase 80 U/L (41-126); BUN/Creat Ratio 18.05 Ratio (12.00-20.00); Blood Urea Nitrogen 36.1 mg/dL (9.0-27.0); Calcium 10.5 mg/dL (8.7-10.3); Chloride 102 mmol/L (96-109); Glucose 102 mg/dL (70-110); Iron 63 UG/DL (50-170); Magnesium 2.2 mg/dL (1.5-2.4); Potassium 5.3 mmol/L (3.5-5.5); Sodium 141 mmol/L (135-145); Total Bilirubin 0.5 mg/dL (0.3-1.2); Total Iron Binding Capacity 276 UG/DL (228-460); Total Protein 6.4 d/dL (6.2-8.2); Uric Acid 7.4 mg/dL (2.9-7.7)
[2023-04-19 18:58] LABS: Urine Creatinine 78.7 mg/dL (28.0-217.0)
== END | disposition home or self-care (01) ==
LOC: LABWHC1 10:52
PROVIDERS: ATTEND Internal Medicine
DX: E55.9 Vitamin D deficiency, unspecified (principal); N18.4 Chronic kidney disease, stage 4 (severe); N39.0 Urinary tract infection, site not specified; N25.81 Secondary hyperparathyroidism of renal origin; M10.9 Gout, unspecified; D63.1 Anemia in chronic kidney disease; R80.9 Proteinuria, unspecified
CPT/HCPCS: 36415; 80053; 81001; 81050; 82043; 82306; 82570; 82652; 82728; 83540; 83550; 83735; 83970; 84100; 84550; 85025

== ENCOUNTER → 2023-05-12 | Outpatient (CLI) | payer MEDICARE ==
[2023-05-12 16:25] LABS: ALT 13 U/L (8-44); AST 24 U/L (13-35); Albumin 4.2 d/dL (3.8-4.9); Alkaline Phosphatase 77 U/L (41-126); Blood Urea Nitrogen 31.7 mg/dL (9.0-27.0); Calcium 10.1 mg/dL (8.7-10.3); Carbon Dioxide 28.6 mmol/L (21.6-31.8); Chloride 104 mmol/L (96-109); Glucose 123 mg/dL (70-110); Potassium 4.6 mmol/L (3.5-5.5); Sodium 143 mmol/L (135-145); Total Bilirubin 0.5 mg/dL (0.3-1.2); Total Protein 6.2 d/dL (6.2-8.2)
== END | disposition home or self-care (01) ==
LOC: LABWHC1 11:28
PROVIDERS: ATTEND Internal Medicine Nephrology
DX: N18.4 Chronic kidney disease, stage 4 (severe) (principal)
CPT/HCPCS: 36415; 80053

== ENCOUNTER → 2023-09-01 | Outpatient (CLI) | payer MEDICARE ==
--- NOTE | 2023-09-05 15:43 | MM ---
Reason for Exam: Screening (asymptomatic). Last mammogram was performed 1 year(s) and 1 month(s) ago. Patient History: Menarche at age 16. First Full-Term at age 23. Postmenopausal. Core Biopsy on the Left side. 01/21/2000, Benign Stereotactic Core Biopsy on the left side. Risk Values: Kanika 5 year model risk: 1.9%. NCI Lifetime model risk: 2.6%. Prior Study Comparison: 03/03/2020 Bilateral Screening Mammogram, [facility]. 06/24/2021 Bilateral Screening Mammogram, [facility]. 07/08/2022 Bilateral MG 3D screening mammo w/cad, [facility]. Tissue Density: There are scattered fibroglandular densities. Findings: Analyzed By CAD. There is no suspicious group of microcalcifications or new suspicious mass in either breast. Overall Assessment: Negative, BI-RAD 1 Management: Screening Mammogram of both breasts in 1 year. . Patient should continue monthly self-breast exams. A clinical breast exam by your physician is recommended on an annual basis. This exam should not preclude additional follow-up of suspicious palpable abnormalities. Note on Kanika scores and lifetime risk: 1. A Kanika score greater than 3% is considered moderate risk. If this is the case, consider specialist referral to assess eligibility for a risk reducing agent. 2. If overall lifetime risk for the development of breast cancer is 20% or higher, the patient may qualify for future screening with alternating mammogram and breast MRI. Electronically signed and approved by: Francesco Tobias M.D. Radiologist
== END | disposition home or self-care (01) ==
LOC: RADMAMWWP 09:18
PROVIDERS: ATTEND Family Medicine
DX: Z12.31 Encounter for screening mammogram for malignant neoplasm of breast (principal); Z78.0 Asymptomatic menopausal state
CPT/HCPCS: 77063; 77067

== ENCOUNTER → 2023-10-04 | Outpatient (CLI) | payer MEDICARE ==
[2023-10-04 17:55] LABS: BUN/Creat Ratio 16.38 Ratio (12.00-20.00); Blood Urea Nitrogen 34.4 mg/dL (9.0-27.0); Carbon Dioxide 27.4 mmol/L (21.6-31.8); Chloride 102 mmol/L (96-109); Glucose 120 mg/dL (70-110); Magnesium 2.1 mg/dL (1.5-2.4); Potassium 4.6 mmol/L (3.5-5.5); Sodium 141 mmol/L (135-145)
[2023-10-04 17:56] LABS: ALT 15 U/L (8-44); AST 22 U/L (13-35); Albumin 4.3 g/dL (3.8-4.9); Albumin/Globulin Ratio 1.87 Ratio (1.60-3.17); Alkaline Phosphatase 90 U/L (41-126); Calcium 10.1 mg/dL (8.7-10.3); Globulin 2.3 g/dL (1.6-3.3); Total Bilirubin 0.5 mg/dL (0.3-1.2); Total Protein 6.6 g/dL (6.2-8.2)
== END | disposition home or self-care (01) ==
LOC: LABWHC1 10:54
PROVIDERS: ATTEND Internal Medicine Interventional Cardiology
DX: I48.91 Unspecified atrial fibrillation (principal)
CPT/HCPCS: 36415; 80053; 83735; 84443

== ENCOUNTER → 2023-11-30 | Outpatient (CLI) | payer MEDICARE ==
[2023-11-30 16:29] LABS: HCT 39.8 % (37.2-46.3); HGB 12.8 g/dL (12.0-15.0); MCH 29.8 pg (27.0-32.0); MCHC 32.2 g/dL (32.0-37.0); MCV 92.6 FL (80.0-97.0); Mean Platelet Volume 9.7 FL (9.5-12.2); NRBC Per 100 WBC 0 X 10*3/uL (0.00-0.01); Platelet Count 159 X 10*3/uL (140-440); RDW 13.5 % (11.5-14.5); WBC 9.12 X 10*3/uL (4.50-10.00)
[2023-11-30 17:18] LABS: % Iron Saturation 24.45 (12.00-45.00); ALT 14 U/L (8-44); AST 21 U/L (13-35); Albumin 4.2 g/dL (3.8-4.9); Alkaline Phosphatase 86 U/L (41-126); BUN/Creat Ratio 15.64 Ratio (12.00-20.00); Blood Urea Nitrogen 34.4 mg/dL (9.0-27.0); Calcium 10.1 mg/dL (8.7-10.3); Carbon Dioxide 26.9 mmol/L (21.6-31.8); Chloride 103 mmol/L (96-109); Ferritin 95.7 ng/mL (10.0-291.0); Globulin 2.1 g/dL (1.6-3.3); Glucose 104 mg/dL (70-110); Iron 67 UG/DL (50-170); Magnesium 1.9 mg/dL (1.5-2.4); Phosphorus 3.7 mg/dL (2.4-5.1); Potassium 4.8 mmol/L (3.5-5.5); Sodium 142 mmol/L (135-145); Total Bilirubin 0.6 mg/dL (0.3-1.2); Total Iron Binding Capacity 274 UG/DL (228-460); Total Protein 6.3 g/dL (6.2-8.2); Uric Acid 6.2 mg/dL (2.9-7.7)
[2023-11-30 18:50] LABS: Urine Creatinine 44.2 mg/dL (28.0-217.0)
[2023-11-30 23:21] LABS: Appearance,Urine Clear (Clear); Bilirubin,Urine Negative (Negative); Blood,Urine Negative (Negative); Color,Urine Yellow (Yellow); Ketones,Urine Negative (Negative); Nitrite,Urine Negative (Negative); PH, Urine 6.5; Specific Gravity,Urine 1.009 (1.001-1.030); Urobilinogen,Urine 0.2 E.U./DL
[2023-11-30 23:28] LABS: Bacteria,Urine None Seen (None Seen)
== END | disposition home or self-care (01) ==
LOC: LABWHC1 10:55
PROVIDERS: ATTEND Internal Medicine Nephrology
DX: E55.9 Vitamin D deficiency, unspecified (principal); N25.81 Secondary hyperparathyroidism of renal origin; N39.0 Urinary tract infection, site not specified; N18.4 Chronic kidney disease, stage 4 (severe); M10.9 Gout, unspecified; D63.1 Anemia in chronic kidney disease; R80.9 Proteinuria, unspecified
CPT/HCPCS: 36415; 80053; 81001; 82043; 82306; 82570; 82728; 83540; 83550; 83735; 83970; 84100; 84550; 85027

== ENCOUNTER → 2023-12-16 | Outpatient (CLI) | payer MEDICARE ==
[2023-12-16 16:37] LABS: BUN/Creat Ratio 17.16 Ratio (12.00-20.00); Blood Urea Nitrogen 42.9 mg/dL (9.0-27.0); Calcium 9.7 mg/dL (8.7-10.3); Carbon Dioxide 28.6 mmol/L (21.6-31.8); Chloride 105 mmol/L (96-109); Glucose 131 mg/dL (70-110); Potassium 5.3 mmol/L (3.5-5.5); Sodium 143 mmol/L (135-145)
== END | disposition home or self-care (01) ==
LOC: LABWHC1 11:07
PROVIDERS: ATTEND Internal Medicine
DX: I12.9 Hypertensive chronic kidney disease with stage 1 through stage 4 chronic kidney disease, or unspecified chronic kidney disease (principal); N18.9 Chronic kidney disease, unspecified
CPT/HCPCS: 36415; 80048

== ENCOUNTER 2024-01-07 11:58 | Observation (INO) | payer MEDICARE ==
--- NOTE | 2024-01-07 13:14 | ED ---
Arrhythmia/Palpitations HPI - General Chief Complaint: Arrhythmia/Palpitations Stated Complaint: Shortness of breath,dizzy, heart racing Time Seen by Provider: 01/07/24 12:20 Source: patient, family Mode of arrival: wheelchair Limitations: no limitations - History of Present Illness Initial Comments: 83-year-old female history of atrial fibrillation which was recently diagnosed who presents today with complaints of shortness of breath with palpitations some dizziness especially when getting up from a sitting or supine position. No overt fevers chills or sweats no cough or phlegm production she does also have a history of coronary artery disease chronic kidney disease hypothyroid and hyperparathyroidism. She was recently placed on lisinopril by her recoater. She states she has been having trouble with it since then. Patient states she has no history of COPD or asthma MD Complaint: palpitations - Related Data Home Medications Medication Instructions Recorded Confirmed Apixaban [Eliquis] 5 mg PO BID 01/07/24 01/07/24 Atorvastatin [Lipitor] 20 mg PO HS 01/07/24 01/07/24 Cinacalcet [Sensipar] 30 mg PO SA 01/07/24 01/07/24 Furosemide [Lasix] 20 mg PO DAILY 01/07/24 01/07/24 Levothyroxine Sodium [Synthroid] 88 mcg PO DAILY 01/07/24 01/07/24 Metoprolol Tartrate [Lopressor] 12.5 mg PO DAILY 01/07/24 01/07/24 calcitrioL [Rocaltrol] 0.25 mcg PO MOTUWETHFR 01/07/24 01/07/24 Allergies Allergy/AdvReac Type Severity Reaction Status Date / Time oats AdvReac abdominal Verified 01/07/24 16:41 bloating/gas discomfort Review of Systems ROS Statement: Those systems with pertinent positive or pertinent negative responses have been documented in the HPI. ROS Other: All systems not noted in ROS Statement are negative. Past Medical History Past Medical History: Atrial Fibrillation, Eye Disorder, GERD/Reflux, Hy perlipidemia, Hypertension, Osteoarthritis (OA), Thyroid Disorder Additional Past Medical History / Comment(s): GLAUCOMA History of Any Multi-Drug Resistant Organisms: None Reported Past Surgical History: Coronary Bypass/CABG, Joint Replacement, Orthopedic Surgery Additional Past Surgical History / Comment(s): BILATERAL CATARACT EYE SURGERY WITH IMPLANTS , LEFT SHOULDER SURGERY, RIGHT TOTAL KNEE, FATTY CYST REMOVED FROM BACK, RIGHT ANKLE SURGERY, HARDWARE REMOVED RIGHT ANKLE . heart valve repla cement Past Anesthesia/Blood Transfusion Reactions: No Reported Reaction Additional Past Anesthesia/Blood Transfusion Reaction / Comment(s): no hx blood transfusion Past Psychological History: No Psychological Hx Reported Past Alcohol Use History: Rare Past Drug Use History: None Reported - Past Family History Mother Family Medical History: No Reported History General Exam - General Exam Comments Initial Comments: This is a well-developed well-nourished awake alert oriented x 4 female Limitations: no limitations General appearance: alert, in no apparent distress Head exam: Present: atraumatic, normocephalic, normal inspection Eye exam: Present: normal appearance, PERRL, EOMI. Absent: scleral icterus, conjunctival injection, periorbital swelling ENT exam: Present: mucous membranes dry Neck exam: Present: normal inspection, full ROM, other (No stridor JVD or bruits) Respiratory exam: Present: decreased breath sounds (Right lower lobe crepitus with expiratory high-pitched sounds intermittently) Cardiovascular Exam: Present: irregular rhythm GI/Abdominal exam: Present: soft. Absent: bruit, pulsatile mass Extremities exam: Present: normal inspection, full ROM, normal capillary refill. Absent: tenderness, pedal edema, joint swelling, calf tenderness Back exam: Present: normal inspection Neurological exam: Present: alert, oriented X3, CN II-XII intact Psychiatric exam: Present: normal affect, normal mood Skin exam: Present: warm, dry, intact, normal color. Absent: rash Course Vital Signs 01/07/24 01/07/24 01/07/24 12:02 12:14 13:00 Temperature 97.3 F L Pulse Rate 125 H 65 Respiratory 26 H 18 Rate Blood Pressure 143/85 144/84 120/95 O2 Sat by Pulse 99 100 Oximetry 01/07/24 01/07/24 01/07/24 14:00 15:00 16:25 Temperature Pulse Rate 77 86 56 L Respiratory 18 18 Rate Blood Pressure 129/89 134/87 O2 Sat by Pulse 98 94 L Oximetry 01/07/24 16:33 Temperature Pulse Rate 55 L Respiratory Rate Blood Pressure O2 Sat by Pulse Oximetry Medical Decision Making - Medical Decision Making Reevaluation the patient finds she still feels short of breath however her rate on cardiac monitoring is below 100. Patient does demonstrate A-fib she will be admitted she was given a nebulizer treatment with some improvement in aeration. Case discussed with Kate palomo for Dr. Johnson. Was pt. sent in by a medical professional or institution ([facility], PATHOLOGY TEACHER, urgent care, hospital, or care home...) When possible be specific @ -No Did you speak to anyone other than the patient for history (EMS, parent, family, police, friend...)? What history was obtained from this source @ -Only Did you review nursing and triage notes (agree or disagree)? Why? @ -I reviewed and agree with nursing and triage notes Were old charts reviewed (outside hosp., previous admission, EMS record, old EKG, old radiological studies, urgent care reports/EKG's, care home records)? Report findings @ -Old charts were reviewed Differential Diagnosis (chest pain, altered mental status, abdominal pain women, abdominal pain men, vaginal bleeding, weakness, fever, dyspnea, syncope, headache, dizziness, GI bleed, back pain, seizure, CVA, palpatations, mental health, musculoskeletal)? @ -Rapid atrial fibrillation, acute bronchospasm EKG interpreted by me (3pts min.). @ -As above atrial fibrillation rate 94 QRS duration 168 QT/QTc 399/451 left bundle branch block pattern no apparent acute ST-T wave changes. Interpreted by me. X-rays interpreted by me (1pt min.). @ -'s x-ray interpreted by me no acute process CT interpreted by me (1pt min.). @ -None done U/S interpreted by me (1pt. min.). @ -None done What testing was considered but not performed or refused? (CT, X-rays, U/S, labs)? Why? @ -None What meds were considered but not given or refused? Why? @ -None Did you discuss the management of the patient with other professionals (professionals i.e. [facility] Styles, PATHOLOGY TEACHER, lab, RT, psych nurse, social work coordinator, meter setter, teacher, business practices officer, outpatient case manager)? Give summary @ -Kate palomo for Dr. Johnson Was smoking cessation discussed for >3mins.? @ -No Was critical care preformed (if so, how long)? @ -No Were there social determinants of health that impacted care today? How? (Homelessness, low income, unemployed, alcoholism, drug addiction, transportation, low edu. Level, literacy, decrease access to med. care, care home, rehab)? @ -No Was there de-escalation of care discussed even if they declined (Discuss DNR or withdrawal of care, Hospice)? DNR status @ -No What co-morbidities impacted this encounter? (DM, HTN, Smoking, COPD, CAD, Cancer, CVA, ARF, Chemo, Hep., AIDS, mental health diagnosis, sleep apnea, morbid obesity)? @ -Chronic kidney disease, CAD, hyper parathyroidism, hypothyroidism Was patient admitted / discharged? Hospital course, mention meds given and route, prescriptions, significant lab abnormalities, going to OR and other pertinent info. @ -Hospital course was admitted for cardiac evaluation Undiagnosed new problem with uncertain prognosis? @ -Bronchospasm Drug Therapy requiring intensive monitoring for toxicity (Heparin, Nitro, Insulin, Cardizem)? @ -No Were any procedures done? @ -No Diagnosis/symptom? @ -Atrial fibrillation, acute bronchospasm Acute, or Chronic, or Acute on Chronic? @ -Acute Uncomplicated (without systemic symptoms) or Complicated (systemic symptoms)? @ -Complicated Side effects of treatment? @ -No Exacerbation, Progression, or Severe Exacerbation? @ -No Poses a threat to life or bodily function? How? (Chest pain, [place], [place], pneumonia, PE, COPD, DKA, ARF, appy, cholecystitis, CVA, Diverticulitis, Homicidal, Suicidal, threat to staff... and all critical care pts) @ -Potential - Lab Data Result diagrams: 01/07/24 13:10 01/07/24 13:10 Lab Results 01/07/24 01/07/24 01/07/24 Range/Units 13:10 13:10 13:10 WBC 10.5 (3.8-10.6) k/uL RBC 4.35 (3.80-5.40) m/uL Hgb 13.0 (11.4-16.0) gm/dL Hct 40.7 (34.0-46.0) % MCV 93.5 (80.0-100.0) fL MCH 29.8 (25.0-35.0) pg MCHC 31.9 (31.0-37.0) g/dL RDW 13.6 (11.5-15.5) % Plt Count 164 (150-450) k/uL MPV 7.9 Neutrophils % 79 % Lymphocytes % 11 % Monocytes % 7 % Eosinophils % 2 % Basophils % 0 % Neutrophils # 8.3 H (1.3-7.7) k/uL Lymphocytes # 1.2 (1.0-4.8) k/uL Monocytes # 0.8 (0-1.0) k/uL Eosinophils # 0.2 (0-0.7) k/uL Basophils # 0.1 (0-0.2) k/uL PT 11.0 (10.0-12.5) sec INR 1.0 (<1.2) APTT 24.3 (22.0-30.0) sec Sodium 136 L (137-145) mmol/L Potassium 4.6 (3.5-5.1) mmol/L Chloride 105 (98-107) mmol/L Carbon Dioxide 24 (22-30) mmol/L Anion Gap 7 mmol/L BUN 42 H (7-17) mg/dL Creatinine 2.11 H (0.52-1.04) mg/dL Est GFR (CKD-EPI)AfAm 25 (>60 ml/min/1.73 sqM) Est GFR (CKD-EPI)NonAf 21 (>60 ml/min/1.73 sqM) Glucose 145 H (74-99) mg/dL Calcium 9.6 (8.4-10.2) mg/dL Magnesium 2.0 (1.6-2.3) mg/dL Total Bilirubin 0.7 (0.2-1.3) mg/dL AST 23 (14-36) U/L ALT 15 (4-34) U/L Alkaline Phosphatase 74 (38-126) U/L Troponin I (0.000-0.034) ng/mL Total Protein 6.2 L (6.3-8.2) g/dL Albumin 3.7 (3.5-5.0) g/dL TSH 3.640 (0.465-4.680) mIU/L 01/07/24 Range/Units 13:10 WBC (3.8-10.6) k/uL RBC (3.80-5.40) m/uL Hgb (11.4-16.0) gm/dL Hct (34.0-46.0) % MCV (80.0-100.0) fL MCH (25.0-35.0) pg MCHC (31.0-37.0) g/dL RDW (11.5-15.5) % Plt Count (150-450) k/uL MPV Neutrophils % % Lymphocytes % % Monocytes % % Eosinophils % % Basophils % % Neutrophils # (1.3-7.7) k/uL Lymphocytes # (1.0-4.8) k/uL Monocytes # (0-1.0) k/uL Eosinophils # (0-0.7) k/uL Basophils # (0-0.2) k/uL PT (10.0-12.5) sec INR (<1.2) APTT (22.0-30.0) sec Sodium (137-145) mmol/L Potassium (3.5-5.1) mmol/L Chloride (98-107) mmol/L Carbon Dioxide (22-30) mmol/L Anion Gap mmol/L BUN (7-17) mg/dL Creatinine (0.52-1.04) mg/dL Est GFR (CKD-EPI)AfAm (>60 ml/min/1.73 sqM) Est GFR (CKD-EPI)NonAf (>60 ml/min/1.73 sqM) Glucose (74-99) mg/dL Calcium (8.4-10.2) mg/dL Magnesium (1.6-2.3) mg/dL Total Bilirubin (0.2-1.3) mg/dL AST (14-36) U/L ALT (4-34) U/L Alkaline Phosphatase (38-126) U/L Troponin I 0.017 (0.000-0.034) ng/mL Total Protein (6.3-8.2) g/dL Albumin (3.5-5.0) g/dL TSH (0.465-4.680) mIU/L Disposition Clinical Impression: Atrial fibrillation, Acute bronchospasm Disposition: ADMITTED IP TO THIS HOSP Condition: Stable Referrals: Mati Vale DO [Primary Care Provider] - 1-2 days Time of Disposition: 16:30 Decision Date: 01/07/24 Decision Time: 16:30
[2024-01-07 13:20] LABS: Basophils # (A) 0.1 k/uL (0-0.2); Basophils % (A) 0 %; Eosinophils # (A) 0.2 k/uL (0-0.7); Eosinophils % (A) 2 %; HCT 40.7 % (34.0-46.0); Lymphocytes # (A) 1.2 k/uL (1.0-4.8); Lymphocytes % (A) 11 %; MCH 29.8 pg (25.0-35.0); MCHC 31.9 g/dL (31.0-37.0); MCV 93.5 fL (80.0-100.0); Mean Platelet Volume 7.9; Monocytes # (A) 0.8 k/uL (0-1.0); Monocytes % (A) 7 %; Neutrophils # (A) 8.3 k/uL (1.3-7.7); Neutrophils % (A) 79 %; Platelet Count 164 k/uL (150-450); RBC 4.35 m/uL (3.80-5.40); RDW 13.6 % (11.5-15.5); WBC 10.5 k/uL (3.8-10.6)
[2024-01-07 13:29] LABS: Partial Thromboplastin Time 24.3 sec (22.0-30.0)
[2024-01-07 13:30] LABS: ALT 15 U/L (4-34); AST 23 U/L (14-36); African American GFR (CKD) 25 (>60 ml/min/1.73 sqM); Albumin 3.7 g/dL (3.5-5.0); Alkaline Phosphatase 74 U/L (38-126); Anion Gap 7 mmol/L; Blood Urea Nitrogen 42 mg/dL (7-17); Calcium 9.6 mg/dL (8.4-10.2); Carbon Dioxide 24 mmol/L (22-30); Chloride 105 mmol/L (98-107); Glucose 145 mg/dL (74-99); Non-African American GFR(CKD) 21 (>60 ml/min/1.73 sqM); Potassium 4.6 mmol/L (3.5-5.1); Sodium 136 mmol/L (137-145); Total Bilirubin 0.7 mg/dL (0.2-1.3); Total Protein 6.2 g/dL (6.3-8.2)
--- NOTE | 2024-01-07 14:03 | XR ---
EXAMINATION TYPE: XR chest 2V DATE OF EXAM: 01/07/2024 COMPARISON: 04/06/2019 HISTORY: Dysrhythmia TECHNIQUE: Frontal and lateral views of the chest are obtained. FINDINGS: There are median sternotomy wires. There is mild interstitial opacity in the left lung base which could reflect chronic interstitial terry nges or atelectasis. The heart size is normal the pulmonary vasculature is not congested. There is no consolidative opacity. There is no pleural effusion or pneumothorax. IMPRESSION: Interstitial opacities in the retrocardiac region. Findings consistent with chronic inte rstitial changes or atelectasis. No overt CHF.
[2024-01-07] MEDS: IPRATROPIUM-ALBUTEROL 3 ML NEB INHALATION STA (16:25)
[2024-01-07] MEDS ORDERED: NALOXONE 0.4 MG/ML 1 ML VIAL IV PRN (17:23)
[2024-01-07] MEDS ORDERED: IPRATROPIUM-ALBUTEROL 3 ML NEB INHALATION PRN (19:07)
[2024-01-07] MEDS ORDERED: ONDANSETRON 4 MG/2 ML VIAL IVP PRN (19:08)
[2024-01-07] MEDS ORDERED: guaiFENesin SYRUP 100MG/5ML 200 MG/10 ML CUP PO PRN (19:08)
[2024-01-07] MEDS ORDERED: BENZONATATE 100 MG CAP PO PRN (19:08)
[2024-01-07] MEDS ORDERED: ACETAMINOPHEN TAB 325 MG TAB PO PRN (19:08)
[2024-01-07] MEDS ORDERED: BENZOCAINE/MENTHOL LOZENG 1 EACH LOZENGE MUCOUS MEM PRN (19:08)
[2024-01-07] MEDS: SODIUM CHLORIDE 0.9% 1,000 ML IV SCH (19:40)
[2024-01-07] MEDS: APIXABAN 2.5 MG TABLET PO SCH (20:11)
[2024-01-07] MEDS: ATORVASTATIN 20 MG TAB PO SCH (20:13)
[2024-01-07] MEDS: IPRATROPIUM-ALBUTEROL 3 ML NEB INHALATION SCH (20:26)
[2024-01-07] MEDS ORDERED: APIXABAN 5 MG TAB PO SCH (21:00)
[2024-01-08 04:13] LABS: African American GFR (CKD) 23 (>60 ml/min/1.73 sqM); Anion Gap 4 mmol/L; Blood Urea Nitrogen 40 mg/dL (7-17); Calcium 9.1 mg/dL (8.4-10.2); Carbon Dioxide 29 mmol/L (22-30); Chloride 105 mmol/L (98-107); Glucose 86 mg/dL (74-99); Non-African American GFR(CKD) 20 (>60 ml/min/1.73 sqM); Potassium 4.3 mmol/L (3.5-5.1); Sodium 138 mmol/L (137-145)
[2024-01-08] MEDS: LEVOTHYROXINE 88 MCG TAB PO SCH (05:56)
--- NOTE | 2024-01-08 08:39 | P.CRDCN ---
History of Present Illness History of present illness: HISTORY OF PRESENT ILLNESS: This is a 83-year-old female with a past medical history significant for paroxysmal atrial fibrillation, coronary artery disease with previous single vessel bypass, bioprosthetic aortic valve replacement, pericardial effusion requiring pericardial window, mitral valve repair with ring, hypertension, hyperlipidemia, and chronic kidney disease. Patient follows in the office with Dr. Lima. We have been asked to see the patient in consultation for atrial fib rillation. Patient examined at the bedside. Patient states that she went to see her waiter/waitress third class, Dr. Araiza, last week and was started on lisinopril 5 mg daily. She states since she began taking this she has not felt right. She reports feeling dizzy and lightheaded. She states that she checks her blood pressure at home and her blood pressure was running in the [id number]. She denies having any syncopal episodes at home. She states yesterday she began to have palpitations and she presented to the hospital for further evaluation. Patient was found to be in atrial fibrillation. EKG completed reveals atrial fibrillation with left bundle branch block with a heart of 94. The patient is since converted to sinus mechanism and is maintaining sinus mechanism this morning with a heart rate around 60. The patient currently denies any chest pain or pressure. She denies shortness of breath. She denies dizziness or lightheadedness. She denies palpitations. It is noted that the patient was seen in the office by Dr. Lima in November 2023. Patient was bradycardic at that time with a heart rate in the 50s, despite decreasing her beta-heriberto to 12.5 mg daily and discontinuing her amiodarone. Dr. Lima did discuss possibility of underlying sick sinus syndrome with the patient. DIAGNOSTICS: - EKG reveals atrial fibrillation with controlled ventricular rate. Left bundle branch block. Bedside telemetry reveals sinus mechanism. - Chest xray interstitial opacities in the retrocardiac region. Findings consistent with chronic interstitial changes or atelectasis. No overt CHF.. - Laboratory data: WBC 10.5. Hemoglobin 13.0. Platelet count 164. Sodium 138. Potassium 4.3. BUN 40. Creatinine 2.20. Magnesium 2.0. Troponin negative x 3. TSH 3.640. - Current home cardiac medications include Eliquis 5 mg twice a day, Lasix 20 mg daily, metoprolol tartrate 12.5 mg daily. - Most recent echocardiogram obtained in April 2023 revealing ejection fraction 45%, normally functioning prosthetic aortic valve, mitral ring annuloplasty, mild MS and mild MR, moderate TR -Patient underwent Lexiscan stress test in May 2021 revealing EF 50%, mid anterior wall fixed defect could be soft tissue attenuation. No ischemia. - Cardiac catheterization history: February 2019 revealing no significant pulmonary hypertension. Cardiac output was an average of 5 L by Raheem and thermodilution on average. Right dominant system. LAD diffusely diseased distally. RCA dominant and disease-free. Circumflex has 60 to 70% mid lesion. Aortic valve not crossed. REVIEW OF SYSTEMS: At the time of my exam: CONSTITUTIONAL: Denies fever or chills. HEENT: Denies blurred vision, vision changes, or eye pain. Denies hemoptysis CARDIOVASCULAR: Denies chest pain. Denies orthopnea. Denies PND. Denies palpitations RESPIRATORY: Denies shortness of breath. GASTROINTESTINAL: Denies abdominal pain. Denies nausea or vomiting. HEMATOLOGIC: Denies bleeding disorders. GENITOURINARY: Denies any blood in urine. SKIN: Denies pruitis. Denies rash. PHYSICAL EXAM: VITAL SIGNS: Reviewed. GENERAL: Well-developed in no acute distress. HEENT: Head is normocephalic. Pupils are equal, round. Sclerae anicteric. Mucous membranes of the mouth are moist. Neck supple. No JVD or thyromegaly LUNGS: Respirations even and unlabored. Lungs essentially clear to auscultation bilaterally. HEART: Regular rate and rhythm. S1 and S2 heard. Systolic murmur noted. ABDOMEN: Soft. Nondistended. Nontender. EXTREMITIES: Normal range of motion. No clubbing or cyanosis. Peripheral pulses intact. No lower extremity edema NEUROLOGIC: Awake and alert. Oriented x 3. ASSESSMENT: Paroxysmal atrial fibrillation Possible underlying sick sinus syndrome Dizziness after beginning lisinopril Known left bundle branch block Coronary artery disease with previous single-vessel bypass with SVG to circumflex, 2018 History of bioprosthetic aortic valve replacement and mitral valve repair with ring, 2018 History of pericardial effusion requiring pericardial window, post CABG and AVR, 2019 Hypertension Hyperlipidemia Chronic kidney disease Hypothyroidism PLAN: Obtain 2D echo to assess cardiac structure and function Discontinue lisinopril Continue oral anticoagulation with Eliquis Continue current dose of metoprolol 12.5 mg daily Continue telemetry monitoring TSH checked and within normal limits Further recommendations pending patient course Patient to follow-up postdischarge with Dr. Lima Nurse practitioner note has been reviewed by physician. Signing provider agrees with the documented findings, assessment, and plan of care documented by [employer] as a scribe. Past Medical History Past Medical History: Atrial Fibrillation, Eye Disorder, GERD/Reflux, Hyperlipidemia, Hypertension, Osteoarthritis (OA), Thyroid Disorder Additional Past Medical History / Comment(s): GLAUCOMA History of Any Multi-Drug Resistant Organisms: None Reported Past Surgical History: Coronary Bypass/CABG, Joint Replacement, Orthopedic Surgery Additional Past Surgical History / Comment(s): BILATERAL CATARACT EYE SURGERY WITH IMPLANTS , LEFT SHOULDER SURGERY, RIGHT TOTAL KNEE, FATTY CYST REMOVED FROM BACK, RIGHT ANKLE SURGERY, HARDWARE REMOVED RIGHT ANKLE . heart valve replacement Past Anesthesia/Blood Transfusion Reactions: No Reported Reaction Additional Past Anesthesia/Blood Transfusion Reaction / Comment(s): no hx blood transfusion Past Psychological History: No Psychological Hx Reported Past Alcohol Use History: Rare Past Drug Use History: None Reported - Past Family History Mother Family Medical History: No Reported History Medications and Allergies Home Medications Medication Instructions Recorded Confirmed Type Apixaban [Eliquis] 5 mg PO BID 01/07/24 01/07/24 History Atorvastatin [Lipitor] 20 mg PO HS 01/07/24 01/07/24 History Cinacalcet [Sensipar] 30 mg PO SA 01/07/24 01/07/24 History Furosemide [Lasix] 20 mg PO DAILY 01/07/24 01/07/24 History Levothyroxine Sodium [Synthroid] 88 mcg PO DAILY 01/07/24 01/07/24 History Metoprolol Tartrate [Lopressor] 12.5 mg PO DAILY 01/07/24 01/07/24 History calcitrioL [Rocaltrol] 0.25 mcg PO MOTUWETHFR 01/07/24 01/07/24 History Allergies Allergy/AdvReac Type Severity Reaction Status Date / Time oats AdvReac abdominal Verified 01/07/24 16:41 bloating/gas discomfort Physical Exam Vitals: Vital Signs Temp Pulse Resp BP Pulse Ox 01/08/24 07:08 65 16 114/70 99 01/08/24 04:53 60 16 119/70 95 01/08/24 03:20 61 18 139/76 96 01/08/24 00:55 61 16 122/70 98 01/07/24 23:50 65 16 144/71 98 01/07/24 21:50 65 16 122/74 95 01/07/24 20:39 63 01/07/24 20:28 60 01/07/24 20:25 60 16 141/74 98 01/07/24 19:54 59 L 16 136/75 97 01/07/24 16:33 55 L 01/07/24 16:25 56 L 01/07/24 15:00 86 18 134/87 94 L 01/07/24 14:00 77 18 129/89 98 01/07/24 13:00 65 18 120/95 100 01/07/24 12:14 144/84 01/07/24 12:02 97.3 F L 125 H 26 H 143/85 99 Results 01/07/24 13:10 01/08/24 03:17 Cardiac Enzymes 01/07/24 01/07/24 01/07/24 Range/Units 13:10 13:10 17:50 AST 23 (14-36) U/L Troponin I 0.017 0.021 (0.000-0.034) ng/mL 01/07/24 Range/Units 20:34 AST (14-36) U/L Troponin I 0.023 (0.000-0.034) ng/mL Coagulation 01/07/24 Range/Units 13:10 PT 11.0 (10.0-12.5) sec APTT 24.3 (22.0-30.0) sec CBC 01/07/24 Range/Units 13:10 WBC 10.5 (3.8-10.6) k/uL RBC 4.35 (3.80-5.40) m/uL Hgb 13.0 (11.4-16.0) gm/dL Hct 40.7 (34.0-46.0) % Plt Count 164 (150-450) k/uL Comprehensive Metabolic Panel 01/07/24 01/08/24 Range/Units 13:10 03:17 Sodium 136 L 138 (137-145) mmol/L Potassium 4.6 4.3 (3.5-5.1) mmol/L Chloride 105 105 (98-107) mmol/L Carbon Dioxide 24 29 (22-30) mmol/L BUN 42 H 40 H (7-17) mg/dL Creatinine 2.11 H 2.20 H (0.52-1.04) mg/dL Glucose 145 H 86 (74-99) mg/dL Calcium 9.6 9.1 (8.4-10.2) mg/dL AST 23 (14-36) U/L ALT 15 (4-34) U/L Alkaline Phosphatase 74 (38-126) U/L Total Protein 6.2 L (6.3-8.2) g/dL Albumin 3.7 (3.5-5.0) g/dL Current Medications Generic Name Dose Route Start Last Admin Trade Name Freq PRN Reason Stop Dose Admin Acetaminophen 650 mg 01/07/24 19:08 Acetaminophen Tab 325 Mg Tab PO Q6HR PRN Fever and/ or Mild Pain Albuterol/Ipratropium 3 ml 01/07/24 19:07 Ipratropium-Albuterol 3 Ml Neb INHALATION RT-QID PRN Shortness Of Breath Or Wheezing Albuterol/Ipratropium 3 ml 01/07/24 20:00 01/07/24 20:26 Ipratropium-Albuterol 3 Ml Neb INHALATION 3 ml RT-QID CARRIE Administration Apixaban 2.5 mg 01/07/24 21:00 01/07/24 20:12 Apixaban 2.5 Mg Tablet PO 2.5 mg BID CARRIE Administration Protocol Atorvastatin Calcium 20 mg 01/07/24 21:00 01/07/24 20:13 Atorvastatin 20 Mg Tab PO 20 mg HS CARRIE Administration Benzocaine/Menthol 1 each 01/07/24 19:08 Benzocaine/Menthol Lozeng 1 Each Lozenge MUCOUS MEM Q4HR PRN Cough Benzonatate 100 mg 01/07/24 19:08 Benzonatate 100 Mg Cap PO TID PRN Cough Calcitriol 0.25 mcg 01/09/24 09:00 Calcitriol 0.25 Mcg Cap PO MOTUWETHFR CARRIE Cinacalcet 30 mg 01/14/24 09:00 Cinacalcet 30 Mg Tab PO SA CARRIE Furosemide 20 mg 01/08/24 09:00 Furosemide 20 Mg Tab PO DAILY CARRIE Guaifenesin 200 mg 01/07/24 19:08 Guaifenesin Syrup 100mg/5ml 200 Mg/10 Ml Cup PO Q6HR PRN Cough Sodium Chloride 1,000 mls @ 20 mls/hr 01/07/24 17:30 01/07/24 19:40 Saline 0.9% IV 20 mls/hr .Q24H CARRIE Administration Levothyroxine Sodium 88 mcg 01/08/24 06:30 01/08/24 05:56 Levothyroxine 88 Mcg Tab PO 88 mcg DAILY@0630 CARRIE Administration Metoprolol Tartrate 12.5 mg 01/08/24 09:00 Metoprolol Tartrate 12.5 Mg Tab PO DAILY CARRIE Naloxone HCl 0.2 mg 01/07/24 17:23 Naloxone 0.4 Mg/Ml 1 Ml Vial IV Q2M PRN Opioid Reversal Ondansetron HCl 4 mg 01/07/24 19:08 Ondansetron 4 Mg/2 Ml Vial IVP Q6HR PRN Nausea And Vomiting 01/07/24 13:10 01/08/24 03:17
[2024-01-08] MEDS: METOPROLOL TARTRATE 12.5 MG TAB PO SCH (09:09)
[2024-01-08] MEDS: FUROSEMIDE 20 MG TAB PO SCH (09:09)
[2024-01-08] MEDS: APIXABAN 2.5 MG TABLET PO SCH (09:10)
--- NOTE | 2024-01-08 10:52 | P.HPIM ---
History of Present Illness Patient is a pleasant 83-year-old female with a history of paroxysmal atrial fibrillation came in with complaints of palpitations, without any significant chest pressure. Patient had history of coronary disease with bypass grafting an d patient has previously ejection fraction of 40 to 45% uses 20 mg of Lasix not in acute exacerbation at this time. Patient also has a bioprosthetic aortic valve replacement and had a pericardial window at the time he had a mitral valve repair. Patient has chronic kidney disease with baseline creatinine of around 2.5 patient is present creatinine is 2.5 patient denies any orthopnea paroxysmal nocturnal dyspnea. Patient is not in overt heart failure clinically does not have any pedal edema and uses 20 mg of Lasix. Patient was on lisinopril in the past and it was causing lightheadedness because of which lisinopril was discontinued. Patient heart rate is in 60s when I evaluate the patient who patient is not on Cardizem at this time patient uses 12.5 mg of beta-heriberto that his metoprolol 12.5. Patient was bradycardic at certain times patient was on amiodarone which was discontinued and there is a concern for sick sinus syndrome. REVIEW OF SYSTEMS: CONSTITUTIONAL: No fever, no malaise, no fatigue. HEENT: No recent visual problems or hearing problems. Denied any sore throat. CARDIOVASCULAR: No chest pain, orthopnea, PND, no syncope. PULMONARY: No shortness of breath, no cough, no hemoptysis. GASTROINTESTINAL: No diarrhea, no nausea, no vomiting, no abdominal pain. NEUROLOGICAL: No headaches, no weakness, no numbness. HEMATOLOGICAL: Denies any bleeding or petechiae. GENITOURINARY: Denies any burning micturition, frequency, or urgency. MUSCULOSKELETAL/RHEUMATOLOGICAL: Denies any joint pain, swelling, or any muscle pain. ENDOCRINE: Denies any polyuria or polydipsia. The rest of the 14-point review of systems is negative. PHYSICAL EXAMINATION: GENERAL: The patient is alert and oriented x3, not in any acute distress. Well developed, well nourished. HEENT: Pupils are round and equally reacting to light. EOMI. No scleral icterus. No conjunctival pallor. Normocephalic, atraumatic. No pharyngeal erythema. No thyromegaly. CARDIOVASCULAR: S1 and S2 present. No murmurs, rubs, or gallops. PULMONARY: Chest is clear to auscultation, no wheezing or crackles. ABDOMEN: Soft, nontender, nondistended, normoactive bowel sounds. No palpable organomegaly. MUSCULOSKELETAL: No joint swelling or deformity. EXTREMITIES: No cyanosis, clubbing, or pedal edema. NEUROLOGICAL: Gross neurological examination did not reveal any focal deficits. SKIN: No rashes. Assessment and plan -Atrial fibrillation with rapid unclear weight: Breast-feeding factor is unknown patient is occasionally bradycardic as well the past there is a possibility of sick sinus syndrome further management as per cardiology patient is on 12.5 metoprolol if cardiology clears her patient will be discharged today patient is on 2.5 mg of Eliquis which will be continued -Congestive heart failure chronic systolic function without any acute exacerbation patient had ischemically myopathy. Patient is euvolemic at this time -Aortic stenosis status post bioprosthetic aortic valve, had a history of mitral valve repair as well -Coronary disease: CABG in the past resume her heart failure and coronary artery disease medications except for lisinopril. -Chronic kidney disease stage IV stable at this time patient can resume on Lasix -Hypertension patient is not hypotensive at this time -Hyperlipidemia -Hypothyroidism for which patient will be resumed on appropriate home medications DVT prophylaxis: Patient is on Eliquis Past Medical History Past Medical History: Atrial Fibrillation, Eye Disorder, GERD/Reflux, Hyperlipidemia, Hypertension, Osteoarthritis (OA), Thyroid Disorder Additional Past Medical History / Comment(s): GLAUCOMA History of Any Multi-Drug Resistant Organisms: None Reported Past Surgical History: Coronary Bypass/CABG, Joint Replacement, Orthopedic Surgery Additional Past Surgical History / Comment(s): BILATERAL CATARACT EYE SURGERY WITH IMPLANTS , LEFT SHOULDER SURGERY, RIGHT TOTAL KNEE, FATTY CYST REMOVED FROM BACK, RIGHT ANKLE SURGERY, HARDWARE REMOVED RIGHT ANKLE . heart valve replacement Past Anesthesia/Blood Transfusion Reactions: No Reported Reaction Additional Past Anesthesia/Blood Transfusion Reaction / Comment(s): no hx blood transfusion Past Psychological History: No Psychological Hx Reported Past Alcohol Use History: Rare Past Drug Use History: None Reported - Past Family History Mother Family Medical History: No Reported History Medications and Allergies Home Medications Medication Instructions Recorded Confirmed Type Apixaban [Eliquis] 5 mg PO BID 01/07/24 01/07/24 History Atorvastatin [Lipitor] 20 mg PO HS 01/07/24 01/07/24 History Cinacalcet [Sensipar] 30 mg PO SA 01/07/24 01/07/24 History Furosemide [Lasix] 20 mg PO DAILY 01/07/24 01/07/24 History Levothyroxine Sodium [Synthroid] 88 mcg PO DAILY 01/07/24 01/07/24 History Metoprolol Tartrate [Lopressor] 12.5 mg PO DAILY 01/07/24 01/07/24 History calcitrioL [Rocaltrol] 0.25 mcg PO MOTUWETHFR 01/07/24 01/07/24 History Allergies Allergy/AdvReac Type Severity Reaction Status Date / Time oats AdvReac abdominal Verified 01/07/24 16:41 bloating/gas discomfort Physical Exam Vitals: Vital Signs Temp Pulse Resp BP Pulse Ox FiO2 01/08/24 08:16 68 01/08/24 08:10 66 96 21 01/08/24 07:08 65 16 114/70 99 01/08/24 04:53 60 16 119/70 95 01/08/24 03:20 61 18 139/76 96 01/08/24 00:55 61 16 122/70 98 01/07/24 23:50 65 16 144/71 98 01/07/24 21:50 65 16 122/74 95 01/07/24 20:39 63 01/07/24 20:28 60 01/07/24 20:25 60 16 141/74 98 01/07/24 19:54 59 L 16 136/75 97 01/07/24 16:33 55 L 01/07/24 16:25 56 L 01/07/24 15:00 86 18 134/87 94 L 01/07/24 14:00 77 18 129/89 98 01/07/24 13:00 65 18 120/95 100 01/07/24 12:14 144/84 01/07/24 12:02 97.3 F L 125 H 26 H 143/85 99 Results CBC & Chem 7: 01/07/24 13:10 01/08/24 03:17 Labs: Abnormal Lab Results - Last 24 Hours (Table) 01/07/24 01/07/24 01/07/24 Range/Units 13:10 13:10 20:34 Neutrophils # 8.3 H (1.3-7.7) k/uL Sodium 136 L (137-145) mmol/L BUN 42 H (7-17) mg/dL Creatinine 2.11 H (0.52-1.04) mg/dL Glucose 145 H (74-99) mg/dL Total Protein 6.2 L (6.3-8.2) g/dL Procalcitonin 0.10 H (0.02-0.09) ng/mL 01/08/24 Range/Units 03:17 Neutrophils # (1.3-7.7) k/uL Sodium (137-145) mmol/L BUN 40 H (7-17) mg/dL Creatinine 2.20 H (0.52-1.04) mg/dL Glucose (74-99) mg/dL Total Protein (6.3-8.2) g/dL Procalcitonin (0.02-0.09) ng/mL
--- NOTE | 2024-01-09 10:50 | P.PN ---
Subjective Progress Note Date: 01/09/24 HISTORY OF PRESENT ILLNESS: This is a 83-year-old female with a past medical history significant for pa roxysmal atrial fibrillation, coronary artery disease with previous single vessel bypass, bioprosthetic aortic valve replacement, pericardial effusion requiring pericardial window, mitral valve repair with ring, hypertension, hyperlipidemia, and chronic kidney disease. Patient follows in the office with Dr. Lima. We have been asked to see the patient in consultation for atrial fibrillation. Patient examined at the bedside. Patient states that she went to see her finance lecturer, Dr. Araiza, last week and was started on lisinopril 5 mg daily. She states since she began taking this she has not felt right. She reports feeling dizzy and lightheaded. She states that she checks her blood pressure at home and her blood pressure was running in the [id number]. She denies having any syncopal episodes at home. She states yesterday she began to have palpitations and she presented to the hospital for further evaluation. Patient was found to be in atrial fibrillation. EKG completed reveals atrial fibrillation with left bundle branch block with a heart of 94. The patient is since converted to sinus mechanism and is maintaining sinus mechanism this morning with a heart rate around 60. The patient currently denies any chest pain or pressure. She denies shortness of breath. She denies dizziness or lightheadedness. She denies palpitations. It is noted that the patient was seen in the office by Dr. Lima in November 2023. Patient was bradycardic at that time with a heart rate in the 50s, despite decreasing her beta-heriberto to 12.5 mg daily and discontinuing her amiodarone. Dr. Lima did discuss possibility of underlying sick sinus syndrome with the patient. DIAGNOSTICS: - EKG reveals atrial fibrillation with controlled ventricular rate. Left bundle branch block. Bedside telemetry reveals sinus mechanism. - Chest xray interstitial opacities in the retrocardiac region. Findings consistent with chronic interstitial changes or atelectasis. No overt CHF.. - Laboratory data: WBC 10.5. Hemoglobin 13.0. Platelet count 164. Sodium 138. Potassium 4.3. BUN 40. Creatinine 2.20. Magnesium 2.0. Troponin negative x 3. TSH 3.640. - Current home cardiac medications include Eliquis 5 mg twice a day, Lasix 20 mg daily, metoprolol tartrate 12.5 mg daily. - Most recent echocardiogram obtained in April 2023 revealing ejection fraction 45%, normally functioning prosthetic aortic valve, mitral ring annuloplasty, mild MS and mild MR, moderate TR -Patient underwent Lexiscan stress test in May 2021 revealing EF 50%, mid anterior wall fixed defect could be soft tissue attenuation. No ischemia. - Cardiac catheterization history: February 2019 revealing no significant pulmonary hypertension. Cardiac output was an average of 5 L by Raheem and thermodilution on average. Right dominant system. LAD diffusely diseased distally. RCA dominant and disease-free. Circumflex has 60 to 70% mid lesion. Aortic valve not crossed. 01/08 Patient is seen today in the emergency center. She has converted to sinus rhythm. Blood pressure 121/76, heart rate 67. She denies having any chest pain or chest pressure. No palpitations. Patient has been maintained on metoprolol and Eliquis. TSH is 3.64. BUN 40 creatinine 2.2. PHYSICAL EXAM: VITAL SIGNS: Reviewed. GENERAL: Well-developed in no acute distress. HEENT: Head is normocephalic. Pupils are equal, round. Sclerae anicteric. Mucous membranes of the mouth are moist. Neck supple. No JVD or thyromegaly LUNGS: Respirations even and unlabored. Lungs essentially clear to auscultation bilaterally. HEART: Regular rate and rhythm. S1 and S2 heard. Systolic murmur noted. ABDOMEN: Soft. Nondistended. Nontender. EXTREMITIES: Normal range of motion. No clubbing or cyanosis. Peripheral pulses intact. No lower extremity edema NEUROLOGIC: Awake and alert. Oriented x 3. ASSESSMENT: Paroxysmal atrial fibrillation Possible underlying sick sinus syndrome Dizziness after beginning lisinopril Known left bundle branch block Coronary artery disease with previous single-vessel bypass with SVG to circumflex, 2018 History of bioprosthetic aortic valve replacement and mitral valve repair with ring, 2018 History of pericardial effusion requiring pericardial window, post CABG and AVR, 2019 Hypertension Hyperlipidemia Chronic kidney disease Hypothyroidism PLAN: Obtain 2D echo report. If report is unremarkable, patient is cleared for discharge from cardiology May follow-up with Dr. MIGUEL A Lima in 1 week. Continue to hold lisinopril Continue oral anticoagulation with Eliquis and continue metoprolol 12.5 mg daily Nurse practitioner note has been reviewed by physician. Signing provider agrees with the documented findings, assessment, and plan of care documented by MOSS PICKER as a scribe. Objective - Vital Signs Vital signs: Vital Signs Temp 97.8 F 01/09/24 08:19 Pulse 90 01/09/24 08:43 Resp 18 01/09/24 08:19 BP 121/76 01/09/24 08:19 Pulse Ox 98 01/09/24 08:19 FiO2 21 01/08/24 08:10 Intake & Output 01/08/24 01/09/24 01/09/24 18:59 06:59 18:59 Intake Total 1070 Balance 1070 Intake: Intake, IV Titration 220 Amount Sodium Chloride 0.9% 1, 220 000 ml @ 20 mls/hr IV . Q24H CARRIE Rx#:[id number] Oral 850 Other: # Voids 1 # Bowel Movements 0 - Labs CBC & Chem 7: 01/07/24 13:10 01/08/24 03:17
--- NOTE | 2024-01-09 11:24 | CA ---
Transthoracic Echo Report Name: Yulia Yanes Age: 83 Gender: F : 1940 Exam Date: 01/09/2024 09:06 Exam Location: [facility] Ht (in): 70 Wt (lb): 230 Ordering Physician: Marie Friedman Attending/Referring Phys: [id number], Elder Kiln Tester Kristen Carroll, RON Procedure CPT: Indications: LV function, AF, dizziness Cardiac Hx: Hx of CABG, AOV REPLACED , MV REPAIR Technical Quality: Fair Contrast 1: Total Dose (mL): Contrast 2: Total Dose (mL): MEASUREMENTS (Male / Female) Normal Values 2D ECHO LV Diastolic Diameter PLAX 3.9 cm 4.2 - 5.9 / 3.9 - 5.3 cm LV Systolic Diameter PLAX 3.1 cm IVS Diastolic Thickness 1.4 cm 0.6 - 1.0 / 0.6 - 0.9 cm LVPW Diastolic Thickness 1.6 cm 0.6 - 1.0 / 0.6 - 0.9 cm LV Relative Wall Thickness 0.7 RV Internal Dim ED PLAX 4.3 cm LVOT Diameter 2.5 cm LA Systolic Diameter LX 5.2 cm 3.0 - 4.0 / 2.7 - 3.8 cm LA Volume 108.7 cm??? 18 - 58 / 22 - 52 cm??? LA Volume Index 47.2 cm???/m??? 16 - 28 cm???/m??? M-MODE Aortic Root Diameter MM 3.7 cm DOPPLER AV Peak Velocity 374.0 cm/s AV Peak Gradient 55.9 mmHg AV Mean Velocity 304.1 cm/s AV Mean Gradient 39.6 mmHg AV Velocity Time Integral 88.4 cm LVOT Peak Velocity 285.7 cm/s LVOT Peak Gradient 32.7 mmHg AV Area Cont Eq pk 3.7 cm??? MV Peak Velocity 235.2 cm/s MV Peak Gradient 22.1 mmHg MV Mean Velocity 167.5 cm/s MV Mean Gradient 12.5 mmHg MV Velocity Time Integral 67.0 cm MV Area PHT 1.3 cm??? Mitral E Point Velocity 193.0 cm/s Mitral A Point Velocity 203.6 cm/s Mitral E to A Ratio 0.9 MV Deceleration Time 568.5 ms TR Peak Velocity 327.0 cm/s TR Peak Gradient 42.8 mmHg Right Ventricular Systolic Press 47.8 mmHg FINDINGS Left Ventricle Left ventricular ejection fraction is estimated at 55-60 %. Left ventricular cavity size normal. Moderately increased septal wall thickness. Moderately increased posterior wall thickness. Normal left ventricular wall motion. Right Ventricle Severe right ventricular dilatation. Moderate pulmonary hypertension. Right ventricular systolic pressure estimated at 48 mm hg. Right Atrium Normal right atrial size. Left Atrium Severely increased left atrial diameter. Severely increased left atrial volume. Mildly increased left atrial area. Mitral Valve Moderate thickening/calcification of the posterior mitral valve leaflet. Severe mitral stenosis with mean gradient of 13 mmhg Aortic Valve Bioprosthetic AOV with max gradient of 60 mmHg and mean gradient of 38 mmHg Tricuspid Valve Structurally normal tricuspid valve. Mild tricuspid regurgitation. Pulmonic Valve Structurally normal pulmonic valve. No pulmonic regurgitation. Pericardium No pericardial effusion. Aorta Normal size aortic root and proximal ascending aorta. CONCLUSIONS Technically difficult study. Poorly visualized endocardial Probably normal LV systolic function Poorly visualized aortic valve. History of aortic valve replacement. Degenerative aortic valve with a mean gradient of 40 mmHg and peak gradient of 60 mmHg across it Thickened mitral valve leaflets with evidence of severe mitral stenosis with a mean gradient of 13 mmHg with a heart rate of 74 bpm Moderate pulmonary hypertension Dilated right ventricle Previewed by: Dr. Grant Gaston MD (Electronically Signed) Final Date: 09 Jan 2024 11:23
[2024-01-09 12:51] VITALS: TEMP 97.9
[2024-01-09 15:24] VITALS: RESP 20
[2024-01-09 18:12] VITALS: BP 124/83; PULSE 80
--- NOTE | 2024-01-10 00:07 | P.DS ---
Providers Date of admission: 01/07/24 17:23 Expected date of discharge: 01/09/24 Attending physician: Mati Vale Consults: 01/07/24 17:23 Consult Physician Routine Consulting Provider: Joan Arrieta Consult Reason/Comments: Atrial fibrillation Do you want consulting provider notified?: Yes Primary care physician: Mati Vale - Discharge Diagnosis(es) (1) Acute bronchospasm Status: Acute (2) Aortic stenosis Status: Acute (3) Atrial fibrillation Status: Acute (4) Cardiomyopathy Status: Acute (5) History of mitral valve repair Status: Acute Hospital Course: Patient was admitted for atypical sternal type chest pain is known to have valvular disease atrial fibrillation coronary artery disease underwent open heart surgery for replacement in the past she has been doing quite well with was seen by cardiology and 2D echo was unremarkable and she was cleared for discharge to follow-up with Dr. MIGUEL A Lima as an outpatient patient is feeling fin e now without any complaints Patient Condition at Discharge: Stable Plan - Discharge Summary New Discharge Prescriptions: New Apixaban [Eliquis] 2.5 mg PO BID tab Continue Metoprolol Tartrate [Lopressor] 12.5 mg PO DAILY Levothyroxine Sodium [Synthroid] 88 mcg PO DAILY Furosemide [Lasix] 20 mg PO DAILY Atorvastatin [Lipitor] 20 mg PO HS calcitrioL [Rocaltrol] 0.25 mcg PO MOTUWETHFR Cinacalcet [Sensipar] 30 mg PO SA Discontinued Apixaban [Eliquis] 5 mg PO BID Discharge Medication List Atorvastatin [Lipitor] 20 mg PO HS 01/07/24 [History] Cinacalcet [Sensipar] 30 mg PO SA 01/07/24 [History] Furosemide [Lasix] 20 mg PO DAILY 01/07/24 [History] Levothyroxine Sodium [Synthroid] 88 mcg PO DAILY 01/07/24 [History] Metoprolol Tartrate [Lopressor] 12.5 mg PO DAILY 01/07/24 [History] calcitrioL [Rocaltrol] 0.25 mcg PO MOTUWETHFR 01/07/24 [History] Apixaban [Eliquis] 2.5 mg PO BID tab 01/09/24 [Rx] Follow up Appointment(s)/Referral(s): Mati Vale DO [Primary Care Provider] - 1 Week Patient Instructions/Handouts: A-fib (Atrial Fibrillation) (ED) Discharge Disposition: HOME SELF-CARE
[2024-01-14] MEDS ORDERED: CINACALCET 30 MG TAB PO SCH (09:00)
== END 2024-01-09 17:52 | disposition home or self-care (01) ==
LOC: EC 11:58 → 3SCARD 17:23 → 6NMEDSUR 01-09 10:27
PROVIDERS: ADMIT Family Medicine; ATTEND Family Medicine
DX: J98.01 Acute bronchospasm (principal); I25.10 Atherosclerotic heart disease of native coronary artery without angina pectoris; I13.0 Hypertensive heart and chronic kidney disease with heart failure and stage 1 through stage 4 chronic kidney disease, or unspecified chronic kidney disease; I50.22 Chronic systolic (congestive) heart failure; N18.4 Chronic kidney disease, stage 4 (severe); E03.9 Hypothyroidism, unspecified; N25.81 Secondary hyperparathyroidism of renal origin; I48.0 Paroxysmal atrial fibrillation; K21.9 Gastro-esophageal reflux disease without esophagitis; E78.5 Hyperlipidemia, unspecified; I35.0 Nonrheumatic aortic (valve) stenosis; I42.9 Cardiomyopathy, unspecified; Z95.1 Presence of aortocoronary bypass graft; Z95.3 Presence of xenogenic heart valve; Z79.01 Long term (current) use of anticoagulants; Z79.890 Hormone replacement therapy; Z79.899 Other long term (current) drug therapy
CPT/HCPCS: 96360; 96361 ×2; 99285; 36415; 94640 ×5; 94760; 93005; 93306; 83880; 80053; 80048; 83735; 84443; 84484; 85025; 85610; 85730; 84145; 71046; G0378 ×4

== ENCOUNTER → 2024-02-28 | Outpatient (CLI) | payer MEDICARE ==
[2024-02-28 15:24] LABS: HCT 42.4 % (37.2-46.3); HGB 13.5 g/dL (12.0-15.0); MCH 29.5 pg (27.0-32.0); MCHC 31.8 g/dL (32.0-37.0); MCV 92.8 FL (80.0-97.0); Mean Platelet Volume 9.6 FL (9.5-12.2); NRBC Per 100 WBC 0 X 10*3/uL (0.00-0.01); Platelet Count 168 X 10*3/uL (140-440); RBC 4.57 X 10*6/uL (4.10-5.20); RDW 13.1 % (11.5-14.5); WBC 10.05 X 10*3/uL (4.50-10.00)
[2024-02-28 15:46] LABS: % Iron Saturation 16.89 (12.00-45.00); ALT 14 U/L (8-44); AST 24 U/L (13-35); Albumin 4.5 g/dL (3.8-4.9); Albumin/Globulin Ratio 1.96 Ratio (1.60-3.17); Alkaline Phosphatase 89 U/L (41-126); BUN/Creat Ratio 17.09 Ratio (12.00-20.00); Blood Urea Nitrogen 39.3 mg/dL (9.0-27.0); Calcium 9.8 mg/dL (8.7-10.3); Carbon Dioxide 26.6 mmol/L (21.6-31.8); Chloride 102 mmol/L (96-109); Globulin 2.3 g/dL (1.6-3.3); Glucose 96 mg/dL (70-110); Iron 51 UG/DL (50-170); Magnesium 2.1 mg/dL (1.5-2.4); Phosphorus 3.1 mg/dL (2.4-5.1); Potassium 4.5 mmol/L (3.5-5.5); Sodium 141 mmol/L (135-145); Total Bilirubin 0.5 mg/dL (0.3-1.2); Total Iron Binding Capacity 302 UG/DL (228-460); Total Protein 6.8 g/dL (6.2-8.2); Uric Acid 7.2 mg/dL (2.9-7.7)
[2024-02-28 19:37] LABS: Appearance,Urine Clear (Clear); Bilirubin,Urine Negative (Negative); Blood,Urine Negative (Negative); Color,Urine Yellow (Yellow); Ketones,Urine Negative (Negative); Nitrite,Urine Negative (Negative); Specific Gravity,Urine 1.011 (1.001-1.030); Urobilinogen,Urine 0.2 E.U./DL
[2024-02-28 19:57] LABS: Urine Creatinine 81.5 mg/dL (28.0-217.0)
[2024-02-28 20:01] LABS: Bacteria,Urine None Seen (None Seen)
== END | disposition home or self-care (01) ==
LOC: LABWHC1 10:50
PROVIDERS: ATTEND Internal Medicine
DX: E55.9 Vitamin D deficiency, unspecified (principal); N39.0 Urinary tract infection, site not specified; N25.81 Secondary hyperparathyroidism of renal origin; M10.9 Gout, unspecified; R80.9 Proteinuria, unspecified; D63.1 Anemia in chronic kidney disease; N18.4 Chronic kidney disease, stage 4 (severe)
CPT/HCPCS: 36415; 80053; 81001; 82043; 82306; 82570; 82728; 83540; 83550; 83735; 83970; 84100; 84550; 85027

== ENCOUNTER → 2024-06-18 | Outpatient (CLI) | payer MEDICARE ==
[2024-06-18 15:16] LABS: HCT 38.6 % (37.2-46.3); HGB 12.2 g/dL (12.0-15.0); MCH 28.8 pg (27.0-32.0); MCHC 31.6 g/dL (32.0-37.0); Mean Platelet Volume 9.7 FL (9.5-12.2); NRBC Per 100 WBC 0 X 10*3/uL (0.00-0.01); Platelet Count 160 X 10*3/uL (140-440); RBC 4.24 X 10*6/uL (4.10-5.20); RDW 13.8 % (11.5-14.5); WBC 9.26 X 10*3/uL (4.50-10.00)
[2024-06-18 15:17] LABS: Basophils # (A) 0.05 X 10*3/uL (0.00-0.10); Basophils % (A) 0.5 %; Eosinophils # (A) 0.18 X 10*3/uL (0.04-0.35); Eosinophils % (A) 1.9 %; Lymphocytes # (A) 1.33 X 10*3/uL (0.90-5.00); Lymphocytes % (A) 14.4 %; Monocytes # (A) 0.89 X 10*3/uL (0.20-1.00); Monocytes % (A) 9.6 %; Neutrophils # (A) 6.77 X 10*3/uL (1.80-7.70); Neutrophils % (A) 73.2 %
[2024-06-18 15:33] LABS: Appearance,Urine Clear (Clear); Bilirubin,Urine Negative (Negative); Blood,Urine Negative (Negative); Color,Urine Yellow (Yellow); Ketones,Urine Negative (Negative); Nitrite,Urine Negative (Negative); PH, Urine 6.5; Specific Gravity,Urine 1.006 (1.001-1.030); Urobilinogen,Urine 0.2 E.U./DL
[2024-06-18 15:36] LABS: % Iron Saturation 21.72 (12.00-45.00); BUN/Creat Ratio 13.67 Ratio (12.00-20.00); Blood Urea Nitrogen 28.7 mg/dL (9.0-27.0); Carbon Dioxide 27.1 mmol/L (21.6-31.8); Chloride 104 mmol/L (96-109); Glucose 117 mg/dL (70-110); Iron 58 UG/DL (50-170); Magnesium 1.9 mg/dL (1.5-2.4); Phosphorus 2.8 mg/dL (2.4-5.1); Potassium 5.1 mmol/L (3.5-5.5); Sodium 141 mmol/L (135-145); Total Iron Binding Capacity 267 UG/DL (228-460); Uric Acid 6.3 mg/dL (2.9-7.7)
[2024-06-18 15:37] LABS: ALT 13 U/L (8-44); AST 23 U/L (13-35); Albumin/Globulin Ratio 2.22 Ratio (1.60-3.17); Alkaline Phosphatase 87 U/L (41-126); Calcium 9.5 mg/dL (8.7-10.3); Globulin 1.8 g/dL (1.6-3.3); Total Bilirubin 0.5 mg/dL (0.3-1.2); Total Protein 5.8 g/dL (6.2-8.2)
[2024-06-18 15:43] LABS: Bacteria,Urine None Seen (None Seen)
[2024-06-18 20:13] LABS: Urine Creatinine 28.8 mg/dL (28.0-217.0)
== END | disposition home or self-care (01) ==
LOC: LABWHC1 10:59
PROVIDERS: ATTEND Nurse Practitioner Family
DX: N18.4 Chronic kidney disease, stage 4 (severe) (principal)
CPT/HCPCS: 36415; 80053; 81001; 82043; 82306; 82570; 82728; 83540; 83550; 83735; 83970; 84100; 84550; 85025

== ENCOUNTER → 2024-11-27 | Outpatient (CLI) | payer MEDICARE ==
[2024-11-27 16:58] LABS: Appearance,Urine Clear (Clear); Bilirubin,Urine Negative (Negative); Blood,Urine Negative (Negative); Color,Urine Yellow (Yellow); Ketones,Urine Negative (Negative); Nitrite,Urine Negative (Negative); PH, Urine 5.5; Specific Gravity,Urine 1.013 (1.001-1.030); Urobilinogen,Urine 0.2 E.U./DL
[2024-11-27 17:11] LABS: Bacteria,Urine None Seen (None Seen)
[2024-11-27 17:50] LABS: HCT 40.5 % (37.2-46.3); HGB 12.5 g/dL (12.0-15.0); MCH 28.9 pg (27.0-32.0); MCHC 30.9 g/dL (32.0-37.0); MCV 93.5 FL (80.0-97.0); Mean Platelet Volume 10.2 FL (9.5-12.2); NRBC Per 100 WBC 0 X 10*3/uL (0.00-0.01); Platelet Count 185 X 10*3/uL (140-440); RBC 4.33 X 10*6/uL (4.10-5.20); RDW 13.4 % (11.5-14.5); WBC 9.57 X 10*3/uL (4.50-10.00)
[2024-11-27 18:32] LABS: % Iron Saturation 21.72 (12.00-45.00); ALT 18 U/L (8-44); AST 26 U/L (13-35); Albumin 4.1 g/dL (3.8-4.9); Albumin/Globulin Ratio 1.95 Ratio (1.60-3.17); Alkaline Phosphatase 97 U/L (41-126); BUN/Creat Ratio 13.76 Ratio (12.00-20.00); Blood Urea Nitrogen 28.9 mg/dL (9.0-27.0); Calcium 9.8 mg/dL (8.7-10.3); Carbon Dioxide 28.8 mmol/L (21.6-31.8); Chloride 100 mmol/L (96-109); Ferritin 95.2 ng/mL (10.0-291.0); Globulin 2.1 g/dL (1.6-3.3); Glucose 149 mg/dL (70-110); Iron 63 UG/DL (50-170); Potassium 4.5 mmol/L (3.5-5.5); Sodium 139 mmol/L (135-145); Total Bilirubin 0.5 mg/dL (0.3-1.2); Total Iron Binding Capacity 290 UG/DL (228-460); Total Protein 6.2 g/dL (6.2-8.2); Uric Acid 6.3 mg/dL (2.9-7.7)
== END | disposition home or self-care (01) ==
LOC: LABWHC1 09:28
PROVIDERS: ATTEND Nurse Practitioner Family
DX: E55.9 Vitamin D deficiency, unspecified (principal); D63.1 Anemia in chronic kidney disease; N18.4 Chronic kidney disease, stage 4 (severe); N39.0 Urinary tract infection, site not specified; N25.81 Secondary hyperparathyroidism of renal origin; M10.9 Gout, unspecified; R80.9 Proteinuria, unspecified
CPT/HCPCS: 36415; 80053; 81001; 82043; 82306; 82570; 82728; 83540; 83550; 83735; 83970; 84100; 84550; 85027

== ENCOUNTER → 2025-03-05 | Outpatient (CLI) | payer MEDICARE ==
--- NOTE | 2025-03-05 13:34 | US ---
EXAMINATION TYPE: US kidneys/renal and bladder DATE OF EXAM: 03/05/2025 COMPARISON: Renal ultrasound 10/20/2022 CLINICAL INDICATION: Female, 85 years old with history of N18.4 CKD; Hx HTN; Patient denies any other signs, symptoms, or relevant history TECHNIQUE: Grayscale imaging of the bilateral kidneys and urinary bladder: FINDINGS: EXAM MEASUREMENTS: Right Kidney: 10.1 x 4.6 x 5.4 cm Left Kidney: 11.6 x 5.9 x 5.7 cm Post Void Residual Volume: NA mL Right Kidney: wnl, no evidence for hydronephrosis, mass or renal calculus. Simple cyst noted Left Kidney: wnl, no evidence for hydronephrosis, mass or renal calculus. Bladder: wnl Bilateral Jets seen: Not able to assess Normal Post Void Residual: NA Incidental - thickened heterogenous endometrium measuring up to 2.0 cm There is no evidence for hydronephrosis at this point in time. No nephrolithiasis is seen. Small si mple cyst at identified. No solid renal masses are identified. Loss of corticomedullary differentiat ion bilaterally. Increased cortical echogenicity. The urinary bladder is anechoic. Thickened heterogenous endometrium measuring up to 2.0 cm without increased color flow. IMPRESSION: 1. No hydronephrosis or nephrolithiasis. 2. Findings of bilateral chronic medical renal disease. 3. Heterogeneously thickened endometrium. This is concerning for endometrial carcinoma in a postmenop ausal patient versus other etiologies. Recommend gynecological consult with direct visualization and pelvic ultrasound. A Yellow level critical message alert has been initiated for Gissel Mace MD via the [employer] Critical Results System on 03/05/2025 1:32 PM. This message alert has been sent to Gissle Mace MD v ia the preferences provided by the clinician for the receipt of Radiology Critical Findings. Message ID [id number]. [facility], , 03/05/2025 1:32 PM
== END | disposition home or self-care (01) ==
LOC: RADUSWWP 12:46
PROVIDERS: ATTEND Internal Medicine Nephrology
DX: I12.9 Hypertensive chronic kidney disease with stage 1 through stage 4 chronic kidney disease, or unspecified chronic kidney disease (principal); N18.4 Chronic kidney disease, stage 4 (severe); R93.89 Abnormal findings on diagnostic imaging of other specified body structures
CPT/HCPCS: 76770